=== PATIENT | female | born 1955 | race Caucasian/White ===

== ENCOUNTER 2021-07-16 11:14 | Emergency (ER) | payer MEDICARE, MEDICAID, SELFPAY ==
[2021-07-16] VITALS (14 sets, daily range): BP systolic 166–193; BP diastolic 61–95; PULSE 72–92; RESP 10–20; TEMP 36.4; O2SAT 96–99
[2021-07-16 11:46] LABS: Basophils Absolute Auto 0.1 K/mm3 (0.0-0.1); Basophils Percent Auto 1.2 % (0.2-1.2); Eosinophils Absolute Auto 0.1 K/mm3 (0-0.3); Eosinophils Percent Auto 1.6 % (0-4.4); Hemoglobin 9.1 g/dL (12.0-15.0); Immature Granulocyte Absolute 0.03 K/mm3 (0.00-0.031); Immature Granulocyte Percent A 0.6 % (0-0.5); Lymphocytes Absolute Auto 0.93 K/mm3 (0.9-3.2); Lymphocytes Percent Auto 19.1 % (18.3-44.2); Mean Corpuscular HGB Conc 30.3 g/dl (32-36); Mean Corpuscular Hemoglobin 29.4 pg (26-34); Mean Corpuscular Volume 96.8 fl (80-100); Mean Platelet Volume 10.4 fl (7.4-10.4); Monocytes Absolute Auto 0.4 K/mm3 (0.1-0.6); Monocytes Percent Auto 8.4 % (2.6-8.5); Neutrophils Absolute Auto 3.4 K/mm3 (1.3-6.7); Neutrophils Percent Auto 69.1 % (45.5-73.1); Platelet Count Result 170 k/mm3 (150-375); White Blood Count 4.9 K/mm3 (4.5-10.0)
[2021-07-16 11:58] LABS: Potassium 4.1 mmol/L (3.4-5.0)
[2021-07-16 12:00] LABS: Alanine Aminotransferase 11 U/L (4-35); Albumin Level 3.6 g/dL (3.5-5.1); Alkaline Phosphatase 63 U/L (38-126); Anion Gap 4 mmol/L (8-16); Aspartate Amino Transferase 18 U/L (14-36); Bilirubin,Total 0.8 mg/dL (0.2-1.3); Blood Urea Nitrogen 13 mg/dL (7-17); Calcium 9.1 mg/dL (8.4-10.2); Carbon Dioxide 28 mmol/L (22-30); Chloride 105 mmol/L (98-107); Estimated CRCL calculation 13 ml/min; Estimated Glomerular Filt Rate 9; Glucose 195 mg/dL (65-110); Lipase 35 U/L (23-300); Sodium 137 mmol/L (137-145)
--- NOTE | 2021-07-16 12:46 | PC.NURSE ---
pt on dialysis - states she does not produce much urine at all - in formed Dr Otoole
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
[2021-07-16] MEDS: LACTATED RINGERS 1,000 ML 250 ML IV CONT (15:06)
[2021-07-16] MEDS: FIDAXOMICIN 200 MG TABLET PO (16:48)
[2021-07-16] MEDS: LABETALOL HCL INJ 100 MG/20 ML VIAL 20 MG IV PUSH (18:55)
--- NOTE | 2021-07-16 19:26 | PC.NURSE ---
Pt asked about her hypertension, has had multiple BP's with 190's systolic. Pt reports she did not take her BP medication this morning because she was coming to the hospital. Pt received labetalol, BP now improved. Plan for discharge. Pt aware. Pt's daughter called and states she will come pick her up.
== END 2021-07-16 20:13 | disposition home or self-care (01) ==
PROVIDERS: Emergency Medicine; Emergency Provider Emergency Medicine
DX: K52.9 Noninfective gastroenteritis and colitis, unspecified (principal)
CPT/HCPCS: 36415; 80053; 83690; 85025; 96361; 96374; 99284; A9270; J7120

== ENCOUNTER 2023-04-22 19:33 | Emergency (ER) | payer MEDICARE, MEDICAID, SELFPAY ==
--- NOTE | ~2023-04-22 | XR_ITS ---
Portable chest x-ray Comparison: None Clinical History: Abdominal pain, dialysis Findings: Lungs are clear, without focal consolidation or pleural effusion. Cardiomediastinal silho uette is unremarkable. Bones and soft tissues are unremarkable. Impression: Normal chest. Reviewed, dictated and finalized at location . [employer] Impression: Normal chest.
--- NOTE | ~2023-04-22 | CT_ITS ---
EXAMINATION: CT abdomen pelvis wo con DATE: 04/22/2023 22:10 INDICATION: Abdominal pain TECHNIQUE: Computed tomography (CT) of the abdomen and pelvis was performed without intravenous contr ast. Automated exposure control and iterative reconstruction technique were employed. The dose-length product was 1235.23 mGy-cm. COMPARISON: None FINDINGS: Discoid atelectasis/scarring in the left lower lobe and lingula. Mild cardiomegaly. Atherosclerotic c oronary artery calcific lesion. No pericardial or pleural effusion. Liver, gallbladder, spleen, pancr eas, bilateral adrenal glands and kidneys are normal. 1 cm nonobstructing stone in a lower pole calyx of the left kidney. 12 mm cyst at the upper pole of the right kidney. Normal appendix. No bowel obst ruction. Coarse calcification at the uterine fundus likely related to a small degenerated uterine fib roid. Partially decompressed bladder is unremarkable. No free intraperitoneal gas or fluid. No pathol ogically enlarged abdominal or pelvic lymphadenopathy. There is calcified atherosclerosis of the aort a and many of the other arteries. Mild lumbar levocurvature with moderate to severe spondylosis. IMPRESSION: 1. No acute intra-abdominal/pelvic process. 2. 1 cm left renal stone. Reviewed, dictated and finalized at location A. LER OPERATOR
[2023-04-22 20:01] VITALS: BP 152/64; PULSE 81; RESP 16; TEMP 36.6; O2SAT 99
[2023-04-22 22:00] VITALS: BP 174/69; PULSE 77; RESP 14; O2SAT 100
[2023-04-22 22:08] LABS: Basophils Absolute Auto 0.1 K/mm3 (0.0-0.1); Basophils Percent Auto 1.1 % (0.2-1.2); Eosinophils Absolute Auto 0.7 K/mm3 (0-0.3); Eosinophils Percent Auto 9.6 % (0-4.4); Hematocrit 35.6 % (37.0-47.0); Hemoglobin 11.3 g/dL (12.0-15.0); Immature Granulocyte Absolute 0.03 K/mm3 (0.00-0.031); Immature Granulocyte Percent A 0.4 % (0-0.5); Lymphocytes Absolute Auto 1.26 K/mm3 (0.9-3.2); Lymphocytes Percent Auto 17.6 % (18.3-44.2); Mean Corpuscular HGB Conc 31.7 g/dl (32-36); Mean Corpuscular Hemoglobin 30.6 pg (26-34); Mean Corpuscular Volume 96.5 fl (80-100); Mean Platelet Volume 10.1 fl (7.4-10.4); Monocytes Absolute Auto 0.6 K/mm3 (0.1-0.6); Monocytes Percent Auto 8.2 % (2.6-8.5); Neutrophils Absolute Auto 4.5 K/mm3 (1.3-6.7); Neutrophils Percent Auto 63.1 % (45.5-73.1); Platelet Count Result 229 k/mm3 (150-375); Red Blood Count 3.69 M/mm3 (4.2-5.4); Red Cell Distribution Width 16.6 % (11.5-14.5); White Blood Count 7.2 K/mm3 (4.5-10.0)
[2023-04-22 22:20] LABS: Alanine Aminotransferase 12 U/L (6-35); Albumin Level 3.9 g/dL (3.5-5.1); Alkaline Phosphatase 98 U/L (38-126); Anion Gap 11 mmol/L (8-16); Aspartate Amino Transferase 23 U/L (14-36); Bilirubin,Total 0.6 mg/dL (0.2-1.3); Blood Urea Nitrogen 42 mg/dL (7-17); Calcium 8.9 mg/dL (8.4-10.2); Carbon Dioxide 31 mmol/L (22-30); Chloride 99 mmol/L (98-107); Estimated Glomerular Filt Rate 6; Glucose 215 mg/dL (65-110); Lipase 244 U/L (23-300); Potassium 4.5 mmol/L (3.4-5.0); Sodium 141 mmol/L (137-145)
[2023-04-22] MEDS: ONDANSETRON INJ 4 MG/2 ML VIAL IV PUSH (22:49)
[2023-04-22] MEDS: SODIUM CHLORIDE 0.9% IV 1,000 ML 999 ML IV CONT (22:49)
[2023-04-22 22:50] VITALS: BP 170/89; PULSE 74; RESP 20; O2SAT 100
--- NOTE | 2023-04-22 23:11 | ED.GENADULT ---
HPI - General Adult General Chief complaint: Nausea/Vomiting/Diarrhea Stated complaint: N/D, not feeling well since dialysis Time Seen by Provider: 04/22/23 21:16 History of Present Illness HPI narrative: Patient presents to the emergency department from home by EMS with generalized weakness and a couple episodes of syncope over the past 5 days. Mostly associated with dialysis. She states that after dialysis last Saturday and today they had to wake her up. Patient did not get dialysis last Saturday because her med car was unable to pick her up. However she is concerned they are taking too much off. Plus she has had diarrhea for the past couple days. Left-sided abdominal pain also present. She denies nausea and vomiting. Denies fevers and chills. Related Data Allergies Allergy/AdvReac Type Severity Reaction Status Date / Time captopril [From Capozide] Allergy Rash Verified 04/22/23 22:07 hydrochlorothiazide Allergy Rash Verified 04/22/23 22:07 [From Capozide] Review of Systems Review of Systems: Negative except what is documented in the HPI Exam Narrative: GENERAL: Well-appearing, well-nourished, and in no acute distress. HEAD: Normocephalic, atraumatic. EYES: PERRLA and EOMI. ENT: Nares clear, no rhinorrhea or epistaxis. Mucous membranes moist. NECK: Supple. CHEST: Clear to auscultation. No respiratory distress. HEART: Regular rate and rhythm. ABDOMEN: Soft, mild tender left side of her abdomen, nondistended. EXTREMITIES: Normal range of motion. No edema. SKIN: Warm, dry, no rash. NEURO: No focal deficits. Alert and oriented x3. PSYCH: Normal mood and affect. Course Vital Signs Vital signs: Vital Signs Temperature 36.6 C 04/22/23 20:01 Pulse Rate 81 04/22/23 20:01 Respiratory Rate 16 04/22/23 20:01 Blood Pressure 152/64 H 04/22/23 20:01 Pulse Oximetry 99 04/22/23 20:01 Oxygen Delivery Room Air 04/22/23 20:01 Temperature 36.6 C 04/22/23 20:01 Pulse Rate 74 04/22/23 22:50 Respiratory Rate 20 04/22/23 22:50 Blood Pressure 170/89 H 04/22/23 22:50 Pulse Oximetry 100 04/22/23 22:50 Oxygen Delivery Room Air 04/22/23 20:01 Medical Decision Making MDM Narrative Medical decision making narrative: CT scan negative for acute pathology. Labs ordered and are grossly unremarkable except for chronic elevation of creatinine. Potassium normal. Patient getting Zofran and fluids. Will reassess for possible discharge to home 2340 Patient feeling better. IV fluids infusing. She is requesting a chest x-ray because she cannot have a TB test and she needs a chest x-ray for her dialysis. That is added. Once fluids are in will DC to home Vital Signs Vital Signs: Vital Signs Temperature 36.6 C 04/22/23 20:01 Pulse Rate 81 04/22/23 20:01 Respiratory Rate 16 04/22/23 20:01 Blood Pressure 152/64 H 04/22/23 20:01 Pulse Oximetry 99 04/22/23 20:01 Oxygen Delivery Room Air 04/22/23 20:01 Temperature 36.6 C 04/22/23 20:01 Pulse Rate 74 04/22/23 22:50 Respiratory Rate 20 04/22/23 22:50 Blood Pressure 170/89 H 04/22/23 22:50 Pulse Oximetry 100 04/22/23 22:50 Oxygen Delivery Room Air 04/22/23 20:01 Lab Data 04/22/23 22:01 04/22/23 22:01 Labs: Lab Results 04/22/23 Range/Units 22:01 WBC 7.2 (4.5-10.0) K/mm3 RBC 3.69 L (4.2-5.4) M/mm3 Hgb 11.3 L (12.0-15.0) g/dL Hct 35.6 L (37.0-47.0) % MCV 96.5 (80-100) fl MCH 30.6 (26-34) pg MCHC 31.7 L (32-36) g/dl RDW 16.6 H (11.5-14.5) % Plt Count 229 (150-375) k/mm3 MPV 10.1 (7.4-10.4) fl Immature Gran % (Auto) 0.4 (0-0.5) % Neut % (Auto) 63.1 (45.5-73.1) % Lymph % (Auto) 17.6 L (18.3-44.2) % [place] % (Auto) 8.2 (2.6-8.5) % Eos % (Auto) 9.6 H (0-4.4) % Baso % (Auto) 1.1 (0.2-1.2) % Lymph # (Auto) 1.26 (0.9-3.2) K/mm3 [place] # (Auto) 0.6 (0.1-0.6) K/mm3 Eos # (Auto) 0.7 H (0-0.3) K/mm3 Bas
[2023-04-22 23:54] VITALS: BP 180/77; PULSE 78; RESP 14; O2SAT 100
[2023-04-22] MEDS: LOPERAMIDE HCL 2 MG CAPSULE 4 MG PO (23:56)
[2023-04-23 00:20] VITALS: BP 180/74; PULSE 90; RESP 19; O2SAT 97
== END 2023-04-23 00:23 | disposition home or self-care (01) ==
PROVIDERS: Emergency Provider Emergency Medicine
DX: N18.6 End stage renal disease (principal); E86.0 Dehydration; R19.7 Diarrhea, unspecified; Z99.2 Dependence on renal dialysis
CPT/HCPCS: 36415; 71045; 74176; 80053; 83690; 85025; 96361; 96374; 99284; A9270; J2405; J7030

== ENCOUNTER 2023-08-27 11:13 | Outpatient (CLI) | payer MEDICARE, MEDICAID, SELFPAY ==
--- NOTE | ~2023-08-27 | XR_ITS ---
Left elbow Technique: AP, oblique, and lateral views were obtained. Clinical History: Pain Findings: No acute fracture or dislocation is seen. Osseous alignment is anatomic. Joint spaces are p reserved. There is no displacement of the fat pads, and soft tissues are unremarkable. Impression: Unremarkable radiographs. Reviewed, dictated and finalized at location . Impression: Unremarkable radiographs.
--- NOTE | ~2023-08-27 | XR_ITS ---
Cervical Spine: AP, lateral, open-mouth views Clinical History: Pain Findings: The normal lordotic curve is maintained. The vertebral bodies and posterior elements appea r intact. There is advanced degenerative disc narrowing at C5-C6 and C6-C7. There is mild facet arthr opathy in the cervical spine. Pre-vertebral soft tissues are unremarkable. Impression: Degenerative spondylosis, as above. Reviewed, dictated and finalized at location . Impression: Degenerative spondylosis, as above.
--- NOTE | ~2023-08-27 | XR_ITS ---
Right Shoulder Technique: AP and scapular Y views were obtained. Clinical History: Pain Findings: No fracture or dislocation is seen. Osseous alignment is anatomic. The glenohumeral and acr omioclavicular joint spaces are preserved. Soft tissues are unremarkable. Impression: Unremarkable right shoulder radiographs. Reviewed, dictated and finalized at [facility]. Impression: Unremarkable right shoulder radiographs.
== END 2023-08-27 11:14 | disposition home or self-care (01) ==
PROVIDERS: PCP Internal Medicine Infectious Disease; Visit Provider Internal Medicine Infectious Disease
DX: G62.9 Polyneuropathy, unspecified (principal); M25.511 Pain in right shoulder; M47.892 Other spondylosis, cervical region
CPT/HCPCS: 72040; 73030; 73080

== ENCOUNTER 2023-09-06 16:15 | Inpatient (IN) | payer MEDICARE, MEDICAID, SELFPAY ==
--- NOTE | ~2023-09-06 | XR_ITS ---
EXAMINATION: XR shoulder RT min 2V DATE: 09/06/2023 17:14 INDICATION: Right shoulder pain. Fall. TECHNIQUE: 4 views of right shoulder were obtained. COMPARISON: Right shoulder radiographs 08/27/2023 FINDINGS: Bone alignment is normal. No fracture. There is mild osteoarthritis of glenohumeral joint a nd moderate osteoarthritis of acromioclavicular joint. IMPRESSION: 1. Polyarticular osteoarthritis. Reviewed, dictated and finalized at location A.
--- NOTE | ~2023-09-06 | XR_ITS ---
EXAM: XR knee LT min 4V DATE: 09/06/2023 23:08 HISTORY: glf, pain to knee, trouble standing . COMPARISON: None available. FINDINGS: Decreased mineralization. No fracture or dislocation. No lytic or blastic lesion. Tricompa rtmental left knee osteoarthritis, moderate in the medial compartment. Trace joint effusion. No erosi on or periosteal change. Soft tissues within normal limits. IMPRESSION: No acute osseous finding in the left knee. Reviewed, dictated and finalized at location K.
--- NOTE | ~2023-09-06 | CT_ITS ---
EXAMINATION: CT brain wo con DATE: 09/06/2023 16:48 INDICATION: Neck pain. Fall. TECHNIQUE: Computed tomography (CT) of the head was performed without intravenous contrast. The mA wa s adjusted according to patient size. Iterative reconstruction technique was employed. The dose-lengt h product was 529.67 mGy-cm. COMPARISON: None FINDINGS: There are scattered areas of low attenuation in the cerebral white matter and laurence. There i s no intracranial hemorrhage, acute infarction, or abnormal intracranial mass lesion. The ventricles are normal in size. There are likely changes of ocular lens replacement surgeries. The paranasal sinu ses are clear. The mastoid air cells are normal. IMPRESSION: 1. Mild nonspecific cerebral white matter disease and pontine disease, which likely represents chroni c small vessel ischemic disease. Reviewed, dictated and finalized at location A. IMPRESSION: 1. Mild nonspecific cerebral white matter disease and pontine disease, which ronaldo waters represents chronic small vessel ischemic disease.
--- NOTE | ~2023-09-06 | XR_ITS ---
EXAM: XR humerus LT DATE: 09/06/2023 20:10 HISTORY: pain over fistula, fall today . COMPARISON: None available. FINDINGS: Normal mineralization. No fracture or dislocation. No lytic or blastic lesion. Moderate de generative change at the AC joint. Mild degenerative change at the glenohumeral joint and elbow joint . No erosion or periosteal change. Soft tissue swelling, dilated vessels, and vascular calcifications with adjacent surgical clips in the left upper arm consistent with the given history of fistula. Ove rlying gas may represent subcutaneous gas or artifact. IMPRESSION: No acute osseous finding in the left humerus. Subcutaneous gas versus artifact from gas t rapped within folds of clothing or bandage material overlying the left upper arm fistula. Correlate f or findings of infection or laceration. Reviewed, dictated and finalized at location K. IMPRESSION: No acute osseous finding in the left humerus. Subcutaneous gas vers us artifact from gas trapped within folds of clothing or bandage material overl marcin the left upper arm fistula. Correlate for findings of infection or lacerat ion.
--- NOTE | ~2023-09-06 | CT_ITS ---
EXAMINATION: CT thoracic lumbar wo con DATE: 09/06/2023 16:49 INDICATION: fall, back pain . TECHNIQUE: Computed tomography (CT) of the thoracic and lumbar spine was performed without intravenou s contrast. The dose-length product was 1970.04 mGy-cm. COMPARISON: None FINDINGS: THORACIC SPINE: Vertebral body alignment intact. Vertebral body heights preserved. Multilevel moderate disc space anastacio rowing and marginal osteophytosis. Large lateral osteophyte formation at multiple levels in the mid a nd lower thoracic spine. Vacuum phenomenon at multiple discs in the lower thoracic spine multilevel m ild facet arthropathy. No severe central canal or neural foraminal narrowing. No traumatic malalignme nt or fracture. Visualized lung parenchyma is clear. LUMBAR SPINE: 5 nonrib-bearing lumbar-type vertebral bodies. Pedicles intact. Mild scoliosis. Normal vertebral body alignment. Vertebral body heights preserved. Multilevel moderate and severe degrees of disc space na rrowing. Vacuum phenomenon at L1-2, L3-4, and L4-5. Right L-1-2 central/right subarticular bridging m arginal osteophyte causing severe narrowing of the entrance of the right neural foramen and moderate canal stenosis. Moderate central canal stenosis at L4-5 secondary to degenerative disc and facet masters ge. Severe left L4-5 neural foraminal narrowing secondary to degenerative disc and facet change. Mult ilevel facet arthropathy, severe at L5-S1 IMPRESSION: No acute fracture or traumatic malalignment detected in the thoracic or lumbar spine. Reviewed, dictated and finalized at location K.
--- NOTE | ~2023-09-06 | US_ITS ---
EXAMINATION: US venous doppler [facility] DATE: 09/07/2023 13:36 INDICATION: Left lower limb pain. TECHNIQUE: Grayscale ultrasound images without and with compression and Doppler ultrasound images of the left lower extremity veins were obtained. COMPARISON: None. FINDINGS: The visualized portions of left common femoral vein, profunda (deep) femoral vein, femoral vein, popl iteal vein, peroneal veins, posterior tibial veins, and greater saphenous vein outflow are patent. IMPRESSION: 1. No deep venous thrombosis. Reviewed, dictated and finalized at location A.
--- NOTE | ~2023-09-06 | XR_ITS ---
EXAMINATION: XR ribs RT 2V w CXR 2V DATE: 09/06/2023 17:14 INDICATION: Right rib pain. Fall. TECHNIQUE: Frontal and lateral views of the chest and 2 views on 4 radiographs of the right ribs were obtained. COMPARISON: Chest single view 04/22/2023 FINDINGS: CHEST TWO VIEWS: There is mild scarring in left midlung zone. No pleural effusion or pneumothorax. Th e heart size is normal. RIGHT RIBS: There is no rib fracture. IMPRESSION: 1. No rib fracture. Reviewed, dictated and finalized at location A. IMPRESSION: 1. No rib fracture.
--- NOTE | ~2023-09-06 | CT_ITS ---
EXAMINATION: CT cervical spine wo con DATE: 09/06/2023 16:48 INDICATION: Neck pain. Fall. TECHNIQUE: Computed tomography (CT) of the cervical spine was performed without intravenous contrast. Automated exposure control and iterative reconstruction technique were employed. The dose-length pro duct was 351.07 mGy-cm. COMPARISON: Cervical spine radiographs 08/27/2023 FINDINGS: There is 5 degrees dextrocurvature of cervicothoracic spine. There is kyphosis of cervical spine. There is mild chronic anterior wedging of T1 vertebral body. There is mildly decreased disc he ight at C4-C5 and severely decreased disc height at C5-C6, C6-C7, and C7-T1. The following disc level s are specifically discussed: C2-C3: There is mild bilateral uncovertebral joint osteoarthritis. There is severe bilateral facet jennifer int osteoarthritis. There is mild left neural foraminal stenosis. There is no central canal stenosis. C3-C4: There is mild lateral uncovertebral joint osteoarthritis. There is severe right and moderate l eft facet joint osteoarthritis. There is mild bilateral neural foraminal stenosis. There is mild cent ral canal stenosis. C4-C5: There is mild bilateral uncovertebral joint osteoarthritis. There is mild bilateral facet join t osteoarthritis. There is mild right neural foraminal stenosis. There is mild central canal stenosis . C5-C6: There is severe bilateral uncovertebral joint osteoarthritis. There is moderate right and jacobo re left facet joint osteoarthritis. There is mild bilateral neural foraminal stenosis. There is mild central canal stenosis. C6-C7: There is severe bilateral uncovertebral joint osteoarthritis. There is moderate bilateral face t joint osteoarthritis. There is mild bilateral neural foraminal stenosis. There is mild central wood l stenosis. C7-T1: There is severe bilateral uncovertebral joint osteoarthritis. There is severe bilateral facet joint osteoarthritis. There is mild bilateral neural foraminal stenosis. There is mild central canal stenosis. IMPRESSION: 1. No fracture. 2. Severe cervical spondylosis. Reviewed, dictated and finalized at location A.
--- NOTE | ~2023-09-06 | MR_ITS ---
EXAMINATION: MR brain/brain stem wo/w con DATE: 09/09/2023 10:58 INDICATION: Left lower extremity numbness and weakness. TECHNIQUE: Magnetic resonance imaging (MRI) of the brain and brainstem was performed without and with 20 mL MultiHance intravenous contrast. COMPARISON: Head CT 09/06/2023 FINDINGS: There are scattered areas of nonspecific increased T2-weighted signal intensity in the cere bral white matter and laurence. There is no intracranial hemorrhage, acute infarction, or abnormal intrac ranial mass lesion. The ventricles are normal in size. The paranasal sinuses are clear. The mastoid a ir cells are normal. There are likely changes of ocular lens replacement surgeries. IMPRESSION: 1. Moderate nonspecific cerebral white matter disease and pontine disease, which likely represents ch ronic small vessel ischemic disease. Reviewed, dictated and finalized at location A. IMPRESSION: 1. Moderate nonspecific cerebral white matter disease and pontine disease, whic h likely represents chronic small vessel ischemic disease.
--- NOTE | ~2023-09-06 | US_ITS ---
EXAMINATION: US carotid duplex BI DATE: 09/11/2023 12:42 INDICATION: Syncope. TECHNIQUE: Grayscale, color Doppler, and pulsed Doppler images of the cervical carotid arteries were obtained. The degree of vessel stenosis is placed in one of the following categories: normal, <50%, 5 0-69%, >=70% but less than near-occlusion, near-occlusion, or total occlusion. Note that percent sten osis relative to normal distal artery lumen diameter is indirectly measured from velocity measurement s as described by Ezra, et al. Radiology 2003; 229:[id number]. COMPARISON: None. FINDINGS: RIGHT: The right common carotid artery (CCA) peak systolic velocity (PSV) is 83 cm/s. The right internal car otid artery (ICA) PSV is 85 cm/s. The right ICA end-diastolic velocity (EDV) is 22 cm/s. The right IC A/CCA PSV ratio is 1.0. Grayscale and color Doppler images yield an estimate of <50% diameter reducti on from plaque in the ICA. There is antegrade flow in the right vertebral artery. LEFT: The left CCA PSV is 97 cm/s. The left ICA PSV is 95 cm/s. The left ICA EDV is 15 cm/s. The left ICA/C CA PSV ratio is 1.0. Grayscale and color Doppler images yield an estimate of <50% diameter reduction from plaque in the ICA. There is antegrade flow in the left vertebral artery. IMPRESSION: 1. <50% stenosis in the right internal carotid artery. 2. <50% stenosis in the left internal carotid artery. Reviewed, dictated and finalized at location A.
--- NOTE | ~2023-09-06 | XR_ITS ---
EXAM: XR elbow RT min 3V DATE: 09/06/2023 19:42 HISTORY: fall, elbow pain . COMPARISON: None available. FINDINGS: Normal mineralization. No fracture or dislocation. No lytic or blastic lesion. Mild degene rative change in the elbow joint. No erosion or periosteal change. Soft tissues within normal limits. IMPRESSION: No acute osseous finding in the right elbow. Reviewed, dictated and finalized at location K.
--- NOTE | ~2023-09-06 | XR_ITS ---
EXAMINATION: XR hip LT 2V w AP pelvis DATE: 09/06/2023 17:14 INDICATION: Left hip pain. Fall. TECHNIQUE: An anteroposterior view of the pelvis and 2 views of left hip were obtained. COMPARISON: None. FINDINGS: There is lumbar levocurvature and severe spondylosis. No fracture. There is mild osteoarthr itis of the hips. Osteitis pubis is noted. IMPRESSION: 1. Mild osteoarthritis of the hips. Reviewed, dictated and finalized at location A.
[2023-09-06 16:24] VITALS: BP 104/75; PULSE 77; RESP 18; TEMP 36.1; O2SAT 96
--- NOTE | 2023-09-06 16:25 | ED.FALL ---
HPI - Fall General Chief Complaint: Fall <Cassia Mcghee PA-C - Last Filed: 09/08/23 10:14> Stated Complaint: fall <Cassia Mcghee PA-C - Last Filed: 09/08/23 10:14> Time Seen by Provider: 09/06/23 16:25 <Cassia Mcghee PA-C - Last Filed: 09/08/23 10:14> Focused HPI: this is a 68-year-old female that presents to the emergency department after a ground level fall today. Reports she hit her left arm on the car. Reports this caused her to stumble and fall backwards onto her bottom and her back. Since she has had neck pain, back pain, right shoulder pain, and left hip pain. She is unsure if she hit her head. She did not lose consciousness. She has not been able to ambulate since. She has history of ESRD and is on dialysis. She had just finished her treatment today. Is concerned about the fistula in her left arm. GENERAL: Well-appearing, well-nourished, and in no acute distress. HEAD: Normocephalic, atraumatic. CHEST: Clear to auscultation. ?No respiratory distress. HEART: Regular rate and rhythm.? NEURO: ?Alert and oriented x3. Patient screened in triage and initial orders placed.? ?Additional care and disposition to be based upon?diagnostic testing and treatment. <Cassia Mcghee PA-C - Last Filed: 09/08/23 10:14> Focused HPI: This is a 68-year-old female, with PMH of ESRD, legal blindness, that presents to the emergency department after a ground level fall today. Reports she hit her left arm on the car. Reports this caused her to stumble and fall backwards onto her bottom and her back. Since she has had neck pain, back pain, right shoulder pain, and left hip pain. She is unsure if she hit her head. She did not lose consciousness. She has not been able to ambulate since. She has history of ESRD and is on dialysis MWF. She had just finished her treatment today. Is concerned about the fistula in her left arm. GENERAL: Well-appearing, well-nourished, and in no acute distress. HEAD: Normocephalic, atraumatic. CHEST: Clear to auscultation. ?No respiratory distress. HEART: Regular rate and rhythm.? NEURO: ?Alert and oriented x3. Patient screened in triage and initial orders placed.? ?Additional care and disposition to be based upon?diagnostic testing and treatment. <WILLI Zendejas Last Filed: 09/07/23 00:00> Source: patient <WILLI Zendejas Last Filed: 09/07/23 00:00> Mode of arrival: EMS <WILLI Zendejas Last Filed: 09/07/23 00:00> Limitations: no limitations <WILLI Zendejas Last Filed: 09/07/23 00:00> History of Present Illness HPI Narrative: Agree with above MSE documentation. States she was attempting to walk without her cane today and knows better. Patient is not on any blood thinners. <WILLI Zendejas Last Filed: 09/07/23 00:00> Related Data Home Medications: Home Medications Medication Instructions Recorded Confirmed carvedilol 12.5 mg tablet 12.5 mg PO BID 09/07/23 09/07/23 dulaglutide 1.5 mg/0.5 mL 1.5 mg subcut WEEKLY 09/07/23 09/07/23 subcutaneous pen injector (Trulicity) nifedipine 90 mg tablet,extended 90 mg PO DAILY 09/07/23 09/07/23 release sevelamer carbonate 800 mg tablet 800 mg PO TID 09/07/23 09/07/23 <WILLI Fall Last Filed: 09/08/23 10:14> Allergies/Adverse Reactions: Allergies Allergy/AdvReac Type Severity Reaction Status Date / Time captopril [From Capozide] Allergy Rash Verified 09/06/23 18:46 hydrochlorothiazide Allergy Rash Verified 09/06/23 18:46 [From Capozide] <WILLI Fall Last Filed: 09/08/23 10:14> Review of Systems Review of Systems: CONSTITUTIONAL: Denies fever, chills, or sweats. CARDIOVASCULAR: Denies chest pain. RESPIRATORY: Denies dyspnea. GASTROINTESTINAL: Denies abdominal pain, nausea, vomiting MUSCULOSKELETAL: See HPI. NEUROLOGIC: See HPI <Haley Moreno PA-C - Last Filed: 09/06/
[2023-09-06 18:35] VITALS: BP 138/58; PULSE 87; RESP 14; TEMP 36.6; O2SAT 100
--- NOTE | 2023-09-06 19:15 | PC.NURSE ---
Report given to Mari HILL, all questions answered
[2023-09-06] MEDS: ONDANSETRON HCL ODT 4 MG TABLET PO (19:39)
[2023-09-06] MEDS: traMADol HCL (*CRX) 25 MG TABLET PO (19:39)
--- NOTE | 2023-09-06 21:53 | PC.NURSE ---
attempted IV and blood draw multiple times without success. recep attempting.
[2023-09-06 22:27] LABS: Basophils Absolute Auto 0.1 K/mm3 (0.0-0.1); Eosinophils Absolute Auto 0.7 K/mm3 (0-0.3); Eosinophils Percent Auto 6.5 % (0-4.4); Hematocrit 36.9 % (37.0-47.0); Hemoglobin 11.6 g/dL (12.0-15.0); Immature Granulocyte Absolute 0.04 K/mm3 (0.00-0.031); Immature Granulocyte Percent A 0.4 % (0-0.5); Lymphocytes Absolute Auto 1.69 K/mm3 (0.9-3.2); Lymphocytes Percent Auto 16.5 % (18.3-44.2); Mean Corpuscular HGB Conc 31.4 g/dl (32-36); Mean Corpuscular Hemoglobin 30.8 pg (26-34); Mean Corpuscular Volume 97.9 fl (80-100); Mean Platelet Volume 9.9 fl (7.4-10.4); Monocytes Absolute Auto 0.8 K/mm3 (0.1-0.6); Monocytes Percent Auto 7.3 % (2.6-8.5); Neutrophils Percent Auto 68.3 % (45.5-73.1); Platelet Count Result 316 k/mm3 (150-375); Red Blood Count 3.77 M/mm3 (4.2-5.4); Red Cell Distribution Width 14.8 % (11.5-14.5); White Blood Count 10.2 K/mm3 (4.5-10.0)
[2023-09-06 22:36] LABS: INR 1.2
[2023-09-06 22:42] LABS: Alanine Aminotransferase 12 U/L (6-35); Albumin Level 4.2 g/dL (3.5-5.1); Alkaline Phosphatase 83 U/L (38-126); Anion Gap 8 mmol/L (4-12); Aspartate Amino Transferase 24 U/L (14-36); Bilirubin,Total 0.6 mg/dL (0.2-1.3); Blood Urea Nitrogen 17 mg/dL (7-17); Calcium 9.8 mg/dL (8.4-10.2); Carbon Dioxide 33 mmol/L (22-30); Chloride 97 mmol/L (98-107); Estimated CRCL calculation 11 ml/min; Estimated Glomerular Filt Rate 8; Glucose 249 mg/dL (65-110); Potassium 4.8 mmol/L (3.4-5.0); Sodium 138 mmol/L (137-145)
[2023-09-06 22:44] LABS: D Dimer 0.77 ug/mL (<0.48)
[2023-09-06 23:16] VITALS: BP 147/67; PULSE 82; RESP 15; TEMP 36.6; O2SAT 97
--- NOTE | 2023-09-06 23:19 | PC.NURSE ---
Assumed care of pt at this time. Pt moved to room 3
--- NOTE | 2023-09-06 23:20 | PC.NURSE ---
attempted to ambulate pt w/ cane. pt was able to take a small step and then had to sit back down. pt states she cannot ambulate due to the pain in her left knee.
--- NOTE | 2023-09-07 00:54 | ADMGEN ---
This patient, Zuleyka Tinoco, was admitted to Medical Room 347-. Patient/family oriented to hospital policies and general routines including ID bracelet, bed and alarms, visiting hours, pain management, procedures, bathroom and other care routines, personal items, smoking policy, room service/diet, and visiting hours. Information on how to activate the Rapid Response Team has been discussed. Patient/Family are encouraged to report perceived risks to care and to ask questions if they do not understand what they are told or what they should do.
[2023-09-07 01:21] VITALS: BMI 35.9
[2023-09-07 01:24] VITALS: BP 137/64; PULSE 83; RESP 20; TEMP 36.7; O2SAT 100
[2023-09-07 06:00] VITALS: BP 149/58; PULSE 83; RESP 20; TEMP 37; O2SAT 98
[2023-09-07 09:16] VITALS: PULSE 78
[2023-09-07] MEDS: carvediloL 12.5 MG TABLET PO ×2 (09:16→20:22)
[2023-09-07] MEDS: SEVELAMER CARBONATE 800 MG TABLET PO ×3 (09:16→17:17)
[2023-09-07] MEDS: ENOXAPARIN 30 MG/0.3 ML SYRINGE SUB-Q (09:17)
[2023-09-07] MEDS: NIFEdipine 30 MG TAB.ER.24 90 MG PO (09:17)
[2023-09-07 09:20] VITALS: O2SAT 98
--- NOTE | 2023-09-07 11:03 | PCPTNOTE ---
per RN doppler was ordered to rule out DVT, PT evaluation waiting on doppler results, will follow
--- NOTE | 2023-09-07 14:11 | PM.IMHP ---
H&P: HPI History of Present Illness Date/Time: 09/07/23 14:11 Chief Complaint: Fall Narrative: This is a 68-year-old female with a significant past medical history of on Saturday dialysis at [facility] in [place], left upper extremity AV fistula, hypertension, GERD, hyperlipidemia-diet controlled, type 2 diabetic, depression, cataracts, legally blind who presents to the hospital for evaluation after a ground level fall. Patient states that she had some numbness to her left leg when sitting on the toilet. She felt like her leg was very unsteady but did not have a fall at that time. She states that she was getting out of her car and stumbled falling backwards onto her bottom in her back, she had her left arm on the car, she did not lose consciousness and she does not remember hitting her head. She has not been able to ambulate since that time. She is on dialysis and had her treatment yesterday at [facility]. She had had concerns about the fistula in her left arm however on examination today she has good bruit and thrill. She denies any fever, chills, nausea, vomiting, diarrhea, abdominal pain, chest pain, shortness a breath. She only endorses pain in the left leg and weakness. Workup in the hospital includes a head CT which shows age-related changes. Cervical spine CT showed no fracture, severe cervical spondylosis. Thoracic/lumbar spine CT was negative for any acute fracture or malalignment. Ribs with chest x-ray showed no rib fracture. Right shoulder x-ray showing polyarticular osteoarthritis. Hip and pelvis x-ray showing mild osteoarthritis of the hips. Right elbow x-ray showing no acute osseous findings in the right elbow. Left humerus showing no fracture, subcutaneous gas versus artifact from gas trapping with unfolds of clothing or bandage material overlying the left upper arm fistula. Left knee x-ray was negative for any acute finding. Left lower extremity venous Doppler was negative for DVT. Initial labs show a white blood cell count of 10.2, hemoglobin 11.6, INR 1.2, chloride 97, creatinine 5.10, EGFR 8, blood sugar 249, liver enzymes were normal. Patient was given tramadol, Tylenol, and Zofran in the ED. PT and OT were ordered to eval and treat. Review of Systems Review of Systems: All systems reviewed & are unremarkable except as noted in HPI and below Constitutional: Constitutional: Reports as per HPI and Reports no additional constitutional complaints Eyes: Eyes: Reports as per HPI and Reports no additional eye complaints ENT: Reports system reviewed and no additional complaints, except as documented and Reports as per HPI Cardiovascular: Cardiovascular: Reports as per HPI and Reports no additional cardiovascular complaints Respiratory: Respiratory: Reports as per HPI and Reports no additional respiratory complaints Gastrointestinal: Gastrointestinal: Reports as per HPI and Reports no additional gastrointestinal complaints Genitourinary: Genitourinary: Reports no additional female genitourinary complaints and Reports as per HPI Musculoskeletal: Musculoskeletal: Reports no additional musculoskeletal complaints and Reports as per HPI Integumentary/Breasts: Skin/Breast: Reports system reviewed and no additional complaints, except as docu and Reports as per HPI Neurologic: Reports system reviewed and no additional complaints, except as documented and Reports as per HPI Psychiatric: Psychiatric: Reports no additional psychiatric complaints and Reports as per HPI PMFSH Past Medical History Medical History AV fistula Cataracts, bilateral Depression End-stage renal disease on hemodialysis High cholesterol Hypertension Legal blindness Type 2 diabetes mellitus Surgical History Surgical History H/O cataract removal with insertion of prosthetic lens Family History Family History (Reviewed
--- NOTE | 2023-09-07 15:09 | PCOTNOTE ---
Spoke with RN prior to eval, still awiting the results of the doppler before completion of OT evaluation. Will follow.
[2023-09-07 15:46] VITALS: BP 106/55; PULSE 74; RESP 18; TEMP 36.8; O2SAT 98
[2023-09-07 20:01] VITALS: BP 107/44; PULSE 80; RESP 16; TEMP 36.8; O2SAT 100
[2023-09-07] MEDS: INSULIN ASPART (*BKC) 100 UNITS/ML SUB-Q (20:31)
[2023-09-07 21:10] LABS: Glucose Point of Care 228 mg/dl (65-105)
[2023-09-08 05:20] VITALS: BP 117/49; PULSE 74; RESP 16; TEMP 37; O2SAT 98
[2023-09-08 06:17] LABS: Hematocrit 38.7 % (37.0-47.0); Mean Corpuscular Hemoglobin 31.1 pg (26-34); Mean Corpuscular Volume 100.3 fl (80-100); Mean Platelet Volume 9.7 fl (7.4-10.4); Platelet Count Result 327 k/mm3 (150-375); Red Blood Count 3.86 M/mm3 (4.2-5.4); Red Cell Distribution Width 15.3 % (11.5-14.5); White Blood Count 11.1 K/mm3 (4.5-10.0)
[2023-09-08 07:28] LABS: Alanine Aminotransferase 10 U/L (6-35); Albumin Level 4.1 g/dL (3.5-5.1); Alkaline Phosphatase 88 U/L (38-126); Anion Gap 9 mmol/L (4-12); Aspartate Amino Transferase 17 U/L (14-36); Bilirubin,Total 0.6 mg/dL (0.2-1.3); Blood Urea Nitrogen 38 mg/dL (7-17); Calcium 9.8 mg/dL (8.4-10.2); Carbon Dioxide 30 mmol/L (22-30); Chloride 97 mmol/L (98-107); Estimated CRCL calculation 7 ml/min; Estimated Glomerular Filt Rate 5; Glucose 107 mg/dL (65-110); Potassium 5.5 mmol/L (3.4-5.0); Sodium 136 mmol/L (137-145)
[2023-09-08 07:39] LABS: Hemoglobin A1C 6.5 % (<5.7)
--- NOTE | 2023-09-08 08:29 | ECG_ITS ---
Measurements Intervals [place] Rate: 70 P: 11 UT: 178 QRS: -33 QRSD: 117 T: 48 QT: 413 QTc: 447 Interpretive Statements SINUS RHYTHM LEFT AXIS DEVIATION INTRAVENTRICULAR CONDUCTION DELAY DELAYED PRECORDIAL R/S TRANSITION BORDERLINE ST ABNORMALITY- HIGH LATERAL LEADS BORDERLINE ECG NO PREVIOUS ECG AVAILABLE FOR COMPARISON Electronically Signed On 09-08-2023 10:59:21 CDT by Walter Varela D.O.
[2023-09-08 08:40] LABS: Glucose Point of Care 94 mg/dl (65-105)
[2023-09-08 08:59] VITALS: PULSE 70
[2023-09-08] MEDS: SEVELAMER CARBONATE 800 MG TABLET PO ×3 (08:59→17:12)
[2023-09-08] MEDS: carvediloL 12.5 MG TABLET PO ×2 (08:59→21:11)
[2023-09-08] MEDS: NIFEdipine 30 MG TAB.ER.24 90 MG PO (08:59)
[2023-09-08] MEDS: ENOXAPARIN 30 MG/0.3 ML SYRINGE SUB-Q (09:00)
--- NOTE | 2023-09-08 09:09 | PM.CNNEP ---
Assessment and Plan Assessment and plan (1) ESRD (end stage renal disease) on dialysis: Code(s): N18.6 - End stage renal disease; Z99.2 - Dependence on renal dialysis Status: Chronic Assessment and Plan: the patient has end-stage renal disease. She dialyzes 3 times a week on Wednesdays and Fridays at [facility] under the care of Dr. Melendez. her dialysis duration is 3hour she says. she has a left upper arm AV fistula. Will do another dialysis tomorrow. She has a mildly high potassium so will give some Lokelma and will repeat the potassium in the morning. Will remove about 2-3 L as tolerated by her blood pressure. She usually gains about 3L but since she is in the hospital she may not gain as much. But I will give a little flexibility to the nurses according to the blood pressure. I will not use heparin tomorrow because of the fall. (2) Fall from ground level: Code(s): W18.30XA - Fall on same level, unspecified, initial encounter Status: Acute Assessment and Plan: The patient had a fall. She has had multiple x-rays which do not show fracture. (3) Hypertension: Code(s): I10 - Essential (primary) hypertension Status: Chronic Assessment and Plan: The patient has hypertension. Her blood pressure is under good control. She is on carvedilol and nifedipine for this. (4) Type 2 diabetes mellitus: Code(s): E11.9 - Type 2 diabetes mellitus without complications Status: Chronic Assessment and Plan: The patient does on Accu-Cheks and insulin sliding scale. Management per hospitalists. (5) Erythropoietin deficiency anemia: Code(s): D63.1 - Anemia in chronic kidney disease Status: Acute Assessment and Plan: Hemoglobin is 12. Will hold off on Epogen for now. (6) Renal osteodystrophy: Code(s): N25.0 - Renal osteodystrophy Status: Acute Assessment and Plan: Will check a phosphorus level in the morning History of Present Illness Reason for Consult Consult date: 09/08/23 Chief Complaint Chief complaint: glf, lle pain, unable to ambulate, esrd on hemo History of Present Illness Narrative: Lory is a very pleasant 68-year-old lady who has multiple medical problems including end-stage renal disease on dialysis Wednesdays at [facility] under the care of Dr. Melendez, hypertension, hyperlipidemia, diabetes, depression, legal blindness, left AV fistula, cataracts, anemia, and renal osteodystrophy. The patient has been on dialysis for about 5 years. She has done pretty well on the machine. She does not make much urine. She gains about 3kilos between treatments. Her blood pressure is pretty stable on the machine. The patient was getting out of her car and lost her footing and fell against the car and also fell to the ground on her buttocks and back. She did not hit her head she says. She did not lose consciousness. She did not faint. She had no prodrome of nausea lightheadedness or palpitations. Review of Systems Constitutional: Constitutional: Reports no additional constitutional complaints Eyes: Eyes: Reports no additional eye complaints ENT: Reports system reviewed and no additional complaints, except as documented Cardiovascular: Cardiovascular: Reports no additional cardiovascular complaints Respiratory: Respiratory: Reports no additional respiratory complaints Gastrointestinal: Gastrointestinal: Reports no additional gastrointestinal complaints Genitourinary: Genitourinary: Reports no additional female genitourinary complaints Musculoskeletal: Musculoskeletal: Reports no additional musculoskeletal complaints Integumentary/Breasts: Skin/Breast: Reports system reviewed and no additional complaints, except as docu Neurologic: Reports system reviewed and no additional complaints, except as documented Psychiatric: Psychiatric: Reports no add
--- NOTE | 2023-09-08 11:28 | PM.IMPN ---
Progress Note: A&P Assessment and Plan (1) Fall from ground level: Code(s): W18.30XA - Fall on same level, unspecified, initial encounter Status: Acute Assessment and Plan: 09/07/2023: Patient had a ground level fall yesterday when getting out of the car from dialysis, she was noted to fall backwards landing on her buttocks however she hit her arm left arm on the car door, she did not lose consciousness, however she was unable to determine if she hit her head or not. Prior to the fall she noticed some numbness to her left leg when sitting on the toilet, grandson massaged her leg and she was able to get up and ambulate however she felt weakness at that point. She did not fall that instance. Head CT was negative Cervical spine CT, thoracic lumbar spine CT essentially negative for any acute finding X-ray of the ribs with chest, shoulder, hip and pelvis, elbow, humerus, knee are all negative for fracture or any acute findings PT and OT are ordered Bilateral ultrasound venous Doppler ordered Continue neuro checks Q shift 09/07: Return of strength and function left lower extremity as of today. Will investigate possible stroke with MRI echocardiogram lipid panel and initiate aspirin rosuvastatin. (2) ESRD (end stage renal disease) on dialysis: Code(s): N18.6 - End stage renal disease; Z99.2 - Dependence on renal dialysis Status: Chronic Assessment and Plan: 09/07/2023: End-stage renal disease on dialysis on Saturday at [facility] in [place] AV fistula to left upper extremity with positive bruit and thrill Nephrology consulted 09/07: Saturday dialysis, Dr. Perera saw patient today. Potassium noted to be 5.5 with morning labs. Mlolykelma ordered after discussion with Dr. Perera. Patient will receive dialysis tomorrow. (3) Hypertension: Code(s): I10 - Essential (primary) hypertension Status: Chronic Assessment and Plan: 09/07/2023: Blood pressures ranging 137/64 to 149/58 Continue Coreg and Procardia XL (4) High cholesterol: Code(s): E78.00 - Pure hypercholesterolemia, unspecified Status: Chronic Assessment and Plan: 09/07/2023: Diet controlled Patient lost 75 lb over last couple years which was intentional 3/31: Lipid panel added on to prior labs awaiting results (5) Type 2 diabetes mellitus: Code(s): E11.9 - Type 2 diabetes mellitus without complications Status: Chronic Assessment and Plan: 09/07/2023: Blood sugars ranging 215-249 Will check hemoglobin A1c in the morning Patient is normally on Trulicity 1.5 mg weekly, which was placed on hold Low-dose sliding scale insulin ordered Hypoglycemia protocol in place Accu-Cheks AC and HS Renal dialysis diet ordered 09/07: Morning glucose 94 (6) Left leg weakness: Code(s): R29.898 - Other symptoms and signs involving the musculoskeletal system Status: Acute Assessment and Plan: 09/07: Loss of function and numbness left lower extremity which resulted in fall bringing patient to the hospital. Return function and feeling today. Will proceed with stroke workup. Initiate aspirin and rosuvastatin. (7) Unable to ambulate: Code(s): R26.2 - Difficulty in walking, not elsewhere classified Status: Acute Assessment and Plan: 09/07: PT/OT, patient cannot care for herself at home any longer and is looking for facility placement. (8) Hyperkalemia: Code(s): E87.5 - Hyperkalemia Status: Acute Assessment and Plan: 09/07: Patient is end-stage renal disease on dialysis Saturday, labs this morning show elevation of potassium to 5.5. EKG without concerning findings. No available telemetry monitoring at this time. No chest pain shortness a breath or other symptoms at this time. Discussed with Nephrology and initiated Lokelma 5 mg. Time Spent With Patient Time with patient: Greater than 35 pippa
[2023-09-08 11:34] VITALS: BP 121/43; PULSE 71; RESP 18; TEMP 36.1; O2SAT 100
[2023-09-08 11:47] LABS: Glucose Point of Care 141 mg/dl (65-105)
[2023-09-08] MEDS: ASPIRIN 81 MG CHEWABLE TABLET PO (12:28)
[2023-09-08] MEDS: ROSUVASTATIN 20 MG TABLET PO (12:28)
[2023-09-08 12:54] LABS: Cholesterol 106 mg/dL (0-200); HDL Direct 40 mg/dL; Triglycerides 98 mg/dL (<150)
[2023-09-08 13:05] LABS: LDL Cholesterol Direct 58 mg/dL
[2023-09-08] MEDS: SODIUM ZIRCONIUM CYCLOSILICATE 5 GM POWD.PACK PO (14:38)
[2023-09-08 17:00] LABS: Glucose Point of Care 161 mg/dl (65-105)
[2023-09-08 18:41] VITALS: BP 113/45; PULSE 75; RESP 18; TEMP 36.2; O2SAT 100
[2023-09-08 19:43] VITALS: BP 125/45; PULSE 75; RESP 18; TEMP 36.3; O2SAT 100
[2023-09-08 21:11] VITALS: PULSE 75
[2023-09-08 22:14] LABS: Glucose Point of Care 199 mg/dl (65-105)
[2023-09-09] VITALS (22 sets, daily range): BP systolic 87–157; BP diastolic 38–73; PULSE 65–80; RESP 16–18; TEMP 36.1–37.2; O2SAT 97–100
[2023-09-09 06:16] LABS: Basophils Absolute Auto 0.1 K/mm3 (0.0-0.1); Basophils Percent Auto 0.8 % (0.2-1.2); Eosinophils Absolute Auto 1.1 K/mm3 (0-0.3); Eosinophils Percent Auto 11.3 % (0-4.4); Hematocrit 34.6 % (37.0-47.0); Hemoglobin 10.9 g/dL (12.0-15.0); Immature Granulocyte Absolute 0.05 K/mm3 (0.00-0.031); Immature Granulocyte Percent A 0.5 % (0-0.5); Lymphocytes Absolute Auto 1.93 K/mm3 (0.9-3.2); Mean Corpuscular HGB Conc 31.5 g/dl (32-36); Mean Corpuscular Hemoglobin 30.9 pg (26-34); Mean Platelet Volume 9.8 fl (7.4-10.4); Monocytes Absolute Auto 0.8 K/mm3 (0.1-0.6); Monocytes Percent Auto 8.4 % (2.6-8.5); Neutrophils Absolute Auto 5.7 K/mm3 (1.3-6.7); Platelet Count Result 286 k/mm3 (150-375); Red Blood Count 3.53 M/mm3 (4.2-5.4); Red Cell Distribution Width 14.9 % (11.5-14.5); White Blood Count 9.7 K/mm3 (4.5-10.0)
[2023-09-09 06:35] LABS: Alanine Aminotransferase 8 U/L (6-35); Albumin Level 3.6 g/dL (3.5-5.1); Alkaline Phosphatase 74 U/L (38-126); Anion Gap 9 mmol/L (4-12); Aspartate Amino Transferase 17 U/L (14-36); Bilirubin,Total 0.6 mg/dL (0.2-1.3); Blood Urea Nitrogen 52 mg/dL (7-17); Calcium 8.9 mg/dL (8.4-10.2); Carbon Dioxide 27 mmol/L (22-30); Chloride 97 mmol/L (98-107); Estimated CRCL calculation 6 ml/min; Estimated Glomerular Filt Rate 4; Glucose 105 mg/dL (65-110); Magnesium 2.2 mg/dL (1.6-2.3); Phosphorus 6.4 mg/dL (2.5-4.5); Potassium 5.6 mmol/L (3.4-5.0); Sodium 133 mmol/L (137-145)
[2023-09-09 07:20] LABS: Hepatitis B Surface Antigen Negative (Negative)
[2023-09-09 07:45] LABS: Hepatitis B Surface Anti Res Positive
[2023-09-09 08:32] LABS: Glucose Point of Care 106 mg/dl (65-105)
[2023-09-09] MEDS: SEVELAMER CARBONATE 800 MG TABLET PO ×3 (09:14→18:18)
[2023-09-09] MEDS: ASPIRIN 81 MG CHEWABLE TABLET PO (09:14)
[2023-09-09] MEDS: ENOXAPARIN 30 MG/0.3 ML SYRINGE SUB-Q (09:14)
--- NOTE | 2023-09-09 10:50 | PM.PNNEP ---
Progress Note: A&P Assessment and Plan (1) End stage renal disease: Code(s): N18.6 - End stage renal disease Status: Chronic Assessment and Plan: HD today continue outpatient schedule of Sat/Sat/Saturday follow electrolytes, volume status, and clearance follows with Dr. Melendez at [facility] (2) Fall from ground level: Code(s): W18.30XA - Fall on same level, unspecified, initial encounter Status: Acute Assessment and Plan: as noted by history on admission imaging to date noted -- no acute injuries noted MRI today to evaluate for possible CVA/TIA PT/OT as tolerated (3) Hypertension: Code(s): I10 - Essential (primary) hypertension Status: Chronic Assessment and Plan: reasonable control continue home medications follow trend of hemodynamics (4) Anemia: Code(s): D64.9 - Anemia, unspecified Status: Acute Assessment and Plan: H/H at goal for ESRD Epogen when Hgb < 10 follow trend of H/H (5) Type 2 diabetes mellitus: Code(s): E11.9 - Type 2 diabetes mellitus without complications Status: Chronic Assessment and Plan: follow accu-cheks glycemic control per hospitalists Will continue to follow. Subjective Date/time seen: 09/09/23 10:50 Interval history: Follow-up for end stage renal disease on hemodialysis. Chart reviewed -- assuming care from Dr. Perera; tolerating dialysis treatment at the time of my visit (seen on HD at 10:40AM); appears to be doing reasonably well; no apparent distress voiced; no issues/events overnight or earlier this morning. Exam Narrative: General: elderly but WD/WN female in NAD Heart: normal S1 and S2; no rub Lungs: clear to auscultation Abdomen: soft, nontender, nondistended, positive bowel sounds Extremities: no cyanosis or clubbing; no edema Skin: warm and dry Objective Data Vital Signs Vital Signs: Vital Signs Temp Pulse Resp BP Pulse Ox O2 Del Method 09/09/23 08:00 100 Room Air 09/09/23 05:32 97 F L 77 18 139/55 L 100 09/08/23 20:00 Room Air 09/08/23 21:11 75 09/08/23 19:43 97.3 F L 75 18 125/45 L 100 09/08/23 18:41 97.1 F L 75 18 113/45 L 100 09/08/23 15:00 Room Air Intake/Output Intake/Output: Intake & Output 09/06/23 09/07/23 09/08/23 09/09/23 23:59 23:59 23:59 23:59 Intake Total 1220 1060 390 Output Total 150 0 Balance 1070 1060 390 Meds/Results Medications: Active Medications Generic Name Dose Route Start Last Admin Trade Name Freq PRN Reason Stop Dose Admin Acetaminophen 650 mg 09/07/23 08:49 Acetaminophen 325 Mg Tablet PO Q4H PRN Mild Pain (1-3) or Fever Aspirin 81 mg 09/08/23 11:45 09/09/23 09:14 Aspirin 81 Mg Chewable Tablet PO 81 mg DAILY@0800 ARON Administration Carvedilol 12.5 mg 09/07/23 09:00 09/08/23 21:11 Carvedilol 12.5 Mg Tablet PO 12.5 mg Q12HR ARON Administration Dextrose 12.5 gm 09/07/23 17:50 Dextrose 50% 25 Gm/50 Ml Syringe IV PUSH PRN PRN Hypoglycemia Protocol Enoxaparin Sodium 30 mg 09/07/23 09:00 09/09/23 09:14 Enoxaparin 30 Mg/0.3 Ml Syringe SUB-Q 30 mg DAILY ARON Administration Glucagon 1 mg 09/07/23 17:50 Glucagon For Inj 1 Mg Vial IM PRN PRN Hypoglycemia Protocol Glucose 15 gm 09/07/23 17:50 Glucose Oral Gel 15 Gm Of Glucse In 37.5 Gm Tube PO PRN PRN Hypoglycemia Protocol Dextrose 1,000 mls @ 100 mls/hr 09/07/23 17:50 Dextrose 5% 1,000 Ml IVPB PRN PRN Hypoglycemia Protocol Albumin Human 50 mls @ 999 mls/hr 09/08/23 09:18 Albutein IVPB 10/08/23 09:17 Q10M PRN HYPOTENSION Insulin Aspart 1 - 2 units 09/07/23 21:00 09/08/23 21:11 Insulin Aspart (*Bkc) 100 Units/Ml SUB-Q Not Given HS ARON Protocol Insulin Aspart 2 - 5 units 09/08/23 08:00 09/09/23 08:38
--- NOTE | 2023-09-09 10:51 | PM.IMPN ---
Progress Note: A&P Assessment and Plan (1) Fall from ground level: Code(s): W18.30XA - Fall on same level, unspecified, initial encounter Status: Acute Assessment and Plan: 09/07/2023: Patient had a ground level fall yesterday when getting out of the car from dialysis, she was noted to fall backwards landing on her buttocks however she hit her arm left arm on the car door, she did not lose consciousness, however she was unable to determine if she hit her head or not. Prior to the fall she noticed some numbness to her left leg when sitting on the toilet, grandson massaged her leg and she was able to get up and ambulate however she felt weakness at that point. She did not fall that instance. Head CT was negative Cervical spine CT, thoracic lumbar spine CT essentially negative for any acute finding X-ray of the ribs with chest, shoulder, hip and pelvis, elbow, humerus, knee are all negative for fracture or any acute findings PT and OT are ordered Bilateral ultrasound venous Doppler ordered Continue neuro checks Q shift 09/07: Return of strength and function left lower extremity as of today. Will investigate possible stroke with MRI echocardiogram lipid panel and initiate aspirin rosuvastatin. 09/08: Patient preferring to stay in the bed than a bedside chair due to discomfort of the buttock with sitting upright. Encouraged patient to change positions frequently and work with therapy. (2) ESRD (end stage renal disease) on dialysis: Code(s): N18.6 - End stage renal disease; Z99.2 - Dependence on renal dialysis Status: Chronic Assessment and Plan: 09/07/2023: End-stage renal disease on dialysis on Saturday at [facility] AV fistula to left upper extremity with positive bruit and thrill Nephrology consulted 09/07: Saturday dialysis, Dr. Perera saw patient today. Potassium noted to be 5.5 with morning labs. Lokelma ordered after discussion with Dr. Perera. Patient will receive dialysis tomorrow. 09/08: Will undergo hospital based dialysis today. (3) Hypertension: Code(s): I10 - Essential (primary) hypertension Status: Chronic Assessment and Plan: 09/07/2023: Blood pressures ranging 137/64 to 149/58 Continue Coreg and Procardia XL (4) High cholesterol: Code(s): E78.00 - Pure hypercholesterolemia, unspecified Status: Chronic Assessment and Plan: 09/07/2023: Diet controlled Patient lost 75 lb over last couple years which was intentional 09/07: Lipid panel added on to prior labs awaiting results 09/08: Lipid panel well controlled, no stroke on MRI, discontinue rosuvastatin that was started yesterday. (5) Type 2 diabetes mellitus: Code(s): E11.9 - Type 2 diabetes mellitus without complications Status: Chronic Assessment and Plan: 09/07/2023: Blood sugars ranging 215-249 Will check hemoglobin A1c in the morning Patient is normally on Trulicity 1.5 mg weekly, which was placed on hold Low-dose sliding scale insulin ordered Hypoglycemia protocol in place Accu-Cheks AC and HS Renal dialysis diet ordered 09/07: Morning glucose 94 09/08: Morning glucose 106 (6) Left leg weakness: Code(s): R29.898 - Other symptoms and signs involving the musculoskeletal system Status: Acute Assessment and Plan: 09/07: Loss of function and numbness left lower extremity which resulted in fall bringing patient to the hospital. Return function and feeling today. Will proceed with stroke workup. Initiate aspirin and rosuvastatin. 09/08: full function has returned. Patient reports some numbness from only left great toe to the knee on the medial aspect of the leg and she mentioned she was previously treated for neuropathy. (7) Unable to ambulate: Code(s): R26.2 - Difficulty in walking, not elsewhere classified Status: Acute Assessment and Plan: 09/07: PT/OT, patient cannot care for hers
[2023-09-09] MEDS: NIFEdipine 30 MG TAB.ER.24 90 MG PO (14:18)
[2023-09-09] MEDS: carvediloL 12.5 MG TABLET PO ×2 (14:18→21:40)
[2023-09-09 14:28] LABS: Glucose Point of Care 113 mg/dl (65-105)
[2023-09-09] MEDS: SODIUM ZIRCONIUM CYCLOSILICATE 5 GM POWD.PACK PO (16:29)
[2023-09-09 17:20] LABS: Glucose Point of Care 253 mg/dl (65-105)
[2023-09-09] MEDS: INSULIN ASPART (*BKC) 100 UNITS/ML SUB-Q (17:27)
[2023-09-10 00:03] LABS: Glucose Point of Care 180 mg/dl (65-105)
[2023-09-10 04:43] VITALS: BP 120/48; PULSE 73; RESP 16; TEMP 36.3; O2SAT 99
[2023-09-10] MEDS: ACETAMINOPHEN 325 MG TABLET 650 MG PO (04:45)
[2023-09-10 06:03] LABS: Basophils Absolute Auto 0.1 K/mm3 (0.0-0.1); Basophils Percent Auto 0.7 % (0.2-1.2); Eosinophils Percent Auto 10.7 % (0-4.4); Hematocrit 33.1 % (37.0-47.0); Hemoglobin 10.6 g/dL (12.0-15.0); Immature Granulocyte Absolute 0.06 K/mm3 (0.00-0.031); Immature Granulocyte Percent A 0.7 % (0-0.5); Lymphocytes Absolute Auto 1.08 K/mm3 (0.9-3.2); Lymphocytes Percent Auto 12.1 % (18.3-44.2); Mean Corpuscular Hemoglobin 31.3 pg (26-34); Mean Corpuscular Volume 97.6 fl (80-100); Mean Platelet Volume 9.8 fl (7.4-10.4); Monocytes Absolute Auto 0.6 K/mm3 (0.1-0.6); Monocytes Percent Auto 6.7 % (2.6-8.5); Neutrophils Absolute Auto 6.1 K/mm3 (1.3-6.7); Neutrophils Percent Auto 69.1 % (45.5-73.1); Platelet Count Result 267 k/mm3 (150-375); Red Blood Count 3.39 M/mm3 (4.2-5.4); Red Cell Distribution Width 15.3 % (11.5-14.5); White Blood Count 8.9 K/mm3 (4.5-10.0)
[2023-09-10 06:18] LABS: Alanine Aminotransferase 8 U/L (6-35); Albumin Level 3.5 g/dL (3.5-5.1); Alkaline Phosphatase 70 U/L (38-126); Anion Gap 10 mmol/L (4-12); Aspartate Amino Transferase 15 U/L (14-36); Bilirubin,Total 0.6 mg/dL (0.2-1.3); Blood Urea Nitrogen 34 mg/dL (7-17); Calcium 8.9 mg/dL (8.4-10.2); Carbon Dioxide 28 mmol/L (22-30); Chloride 97 mmol/L (98-107); Estimated CRCL calculation 9 ml/min; Estimated Glomerular Filt Rate 6; Glucose 92 mg/dL (65-110); Phosphorus 6.1 mg/dL (2.5-4.5); Potassium 4.7 mmol/L (3.4-5.0); Sodium 135 mmol/L (137-145)
[2023-09-10 08:33] LABS: Glucose Point of Care 87 mg/dl (65-105)
[2023-09-10] MEDS: SEVELAMER CARBONATE 800 MG TABLET PO ×3 (08:56→16:55)
[2023-09-10] MEDS: ASPIRIN 81 MG CHEWABLE TABLET PO (08:56)
[2023-09-10 08:57] VITALS: PULSE 68
[2023-09-10] MEDS: carvediloL 12.5 MG TABLET PO (08:57)
[2023-09-10] MEDS: NIFEdipine 30 MG TAB.ER.24 90 MG PO (08:57)
[2023-09-10] MEDS: ENOXAPARIN 30 MG/0.3 ML SYRINGE SUB-Q (08:58)
[2023-09-10 10:10] VITALS: BP 73/42; BP 99/44
--- NOTE | 2023-09-10 10:18 | P.PNNP_ITS ---
Progress Note: A&P Assessment and Plan (1) End stage renal disease: Code(s): N18.6 - End stage renal disease Status: Chronic Assessment and Plan: * HD tomorrow * continue outpatient dialysis schedule of Sat/Sat/Saturday * follow electrolytes, volume status, and clearance * follows with Dr. Melendez at [facility] (2) Fall from ground level: Code(s): W18.30XA - Fall on same level, unspecified, initial encounter Status: Acute Assessment and Plan: * as noted by history on admission * imaging to date noted -- no acute injuries noted * MRI of brain noted - no evidence of CVA/TIA * PT/OT as tolerated (3) Hypertension: Code(s): I10 - Essential (primary) hypertension Status: Chronic Assessment and Plan: * reasonable control * continue home medications - may need to place parameters * follow trend of hemodynamics (4) Anemia: Code(s): D64.9 - Anemia, unspecified Status: Acute Assessment and Plan: * H/H at goal for ESRD * Epogen with HD * follow trend of H/H (5) Type 2 diabetes mellitus: Code(s): E11.9 - Type 2 diabetes mellitus without complications Status: Chronic Assessment and Plan: * follow accu-cheks * glycemic control per hospitalists Will continue to follow. Subjective Date/time seen: 09/10/23 10:18 Interval history: Follow-up for end stage renal disease on hemodialysis. Tolerated dialysis treatment yesterday without any issues or problems; no apparent distress noted at the time of my visit; still feels a bit weak in general; BP running on the lower side this AM. Exam Narrative: General: elderly but WD/WN female in NAD Heart: normal S1 and S2; no rub Lungs: clear to auscultation Abdomen: soft, nontender, nondistended, positive bowel sounds Extremities: no cyanosis or clubbing; no edema Skin: warm and intact Objective Data Vital Signs Vital Signs: Vital Signs Temp Pulse Resp BP Pulse Ox O2 Del Method 09/10/23 10:10 99/44 L 09/10/23 08:57 68 09/10/23 04:43 97.3 F L 73 16 120/48 L 99 09/09/23 20:00 Room Air 09/09/23 21:40 80 04/01/24 20:13 98.1 F 76 18 124/48 L 97 09/09/23 18:36 98.4 F 80 16 111/50 L 100 09/09/23 13:45 97.9 F 75 16 134/51 L 100 09/09/23 13:22 77 114/45 L 09/09/23 13:15 75 119/49 L 09/09/23 13:00 71 117/48 L 09/09/23 12:45 71 117/51 L 09/09/23 12:30 71 111/48 L 09/09/23 14:18 79 Intake/Output Intake/Output: Intake & Output 09/07/23 09/08/23 09/09/23 09/10/23 23:59 23:59 23:59 23:59 Intake Total 1220 1060 1370 240 Output Total 150 0 2500 Balance 1070 1060 -1130 240 Meds/Results Medications: Active Medications Generic Name Dose Route Start Last Admin Trade Name Freq PRN Reason Stop Dose Admin Acetaminophen 650 mg 09/07/23 08:49 09/10/23 04:45 Acetaminophen 325 Mg Tablet PO 650 mg Q4H PRN Administration Mild Pain (1-3) or Fever Aspirin 81 mg 09/08/23 11:45 09/10/23 08:56 Aspirin 81 Mg Chewable Tablet PO
--- NOTE | 2023-09-10 10:18 | PM.PNNEP ---
Progress Note: A&P Assessment and Plan (1) End stage renal disease: Code(s): N18.6 - End stage renal disease Status: Chronic Assessment and Plan: HD tomorrow continue outpatient dialysis schedule of Sat/Sat/Saturday follow electrolytes, volume status, and clearance follows with Dr. Melendez at [facility] (2) Fall from ground level: Code(s): W18.30XA - Fall on same level, unspecified, initial encounter Status: Acute Assessment and Plan: as noted by history on admission imaging to date noted -- no acute injuries noted MRI of brain noted - no evidence of CVA/TIA PT/OT as tolerated (3) Hypertension: Code(s): I10 - Essential (primary) hypertension Status: Chronic Assessment and Plan: reasonable control continue home medications - may need to place parameters follow trend of hemodynamics (4) Anemia: Code(s): D64.9 - Anemia, unspecified Status: Acute Assessment and Plan: H/H at goal for ESRD Epogen with HD follow trend of H/H (5) Type 2 diabetes mellitus: Code(s): E11.9 - Type 2 diabetes mellitus without complications Status: Chronic Assessment and Plan: follow accu-cheks glycemic control per hospitalists Will continue to follow. Subjective Date/time seen: 09/10/23 10:18 Interval history: Follow-up for end stage renal disease on hemodialysis. Tolerated dialysis treatment yesterday without any issues or problems; no apparent distress noted at the time of my visit; still feels a bit weak in general; BP running on the lower side this AM. Exam Narrative: General: elderly but WD/WN female in NAD Heart: normal S1 and S2; no rub Lungs: clear to auscultation Abdomen: soft, nontender, nondistended, positive bowel sounds Extremities: no cyanosis or clubbing; no edema Skin: warm and intact Objective Data Vital Signs Vital Signs: Vital Signs Temp Pulse Resp BP Pulse Ox O2 Del Method 09/10/23 10:10 99/44 L 09/10/23 08:57 68 09/10/23 04:43 97.3 F L 73 16 120/48 L 99 09/09/23 20:00 Room Air 09/09/23 21:40 80 09/09/23 20:13 98.1 F 76 18 124/48 L 97 09/09/23 18:36 98.4 F 80 16 111/50 L 100 09/09/23 13:45 97.9 F 75 16 134/51 L 100 09/09/23 13:22 77 114/45 L 09/09/23 13:15 75 119/49 L 09/09/23 13:00 71 117/48 L 09/09/23 12:45 71 117/51 L 09/09/23 12:30 71 111/48 L 09/09/23 14:18 79 Intake/Output Intake/Output: Intake & Output 09/07/23 09/08/23 09/09/23 09/10/23 23:59 23:59 23:59 23:59 Intake Total 1220 1060 1370 240 Output Total 150 0 2500 Balance 1070 1060 -1130 240 Meds/Results Medications: Active Medications Generic Name Dose Route Start Last Admin Trade Name Freq PRN Reason Stop Dose Admin Acetaminophen 650 mg 09/07/23 08:49 09/10/23 04:45 Acetaminophen 325 Mg Tablet PO 650 mg Q4H PRN Administration Mild Pain (1-3) or Fever Aspirin 81 mg 09/08/23 11:45 09/10/23 08:56 Aspirin 81 Mg Chewable Tablet PO 81 mg DAILY@0800 ARON Administration Carvedilol 12.5 mg 09/07/23 09:00 09/10/23 08:57 Carvedilol 12.5 Mg Tablet PO 12.5 mg Q12HR ARON Administration Dextrose 12.5 gm 09/07/23 17:50 Dextrose 50% 25 Gm/50 Ml Syringe IV PUSH PRN PRN Hypoglycemia Protocol Enoxaparin Sodium 30 mg 09/07/23 09:00 09/10/23 08:58 Enoxaparin 30 Mg/0.3 Ml Syringe SUB-Q 30 mg DAILY ARON Administration Glucagon 1 mg 09/07/23 17:50 Glucagon For Inj 1 Mg Vial IM PRN PRN Hypoglycemia Protocol Glucose 15 gm 09/07/23 17:50 Glucose Oral Gel 15 Gm Of Glucse In 37.5 Gm Tube PO PRN PRN Hypoglycemia Protocol Dextrose 1,000 mls @ 100 mls/hr 09/07/23 17:50 Dextrose 5% 1,000 Ml IVPB PRN PRN Hypoglycemia Protocol Albumin Human 50 mls @ 999 mls/hr 09/08/23 09:18
--- NOTE | 2023-09-10 11:25 | PM.IMPN ---
Progress Note: A&P Assessment and Plan (1) Orthostatic hypotension: Code(s): I95.1 - Orthostatic hypotension Status: Acute Assessment and Plan: 09/09: While walking with therapy patient got lightheaded dizzy. When back to her sees her blood pressure was in the 70s. Later blood pressure was fine when lying down and again dropped to 71/51 upon standing when checking orthostatics. Ordered normal saline 1 L infusion at 75 mL/hr as recommended by Nephrology. Unable to discharge patient with these changes in vital signs. Will hold Coreg and Procardia XL (2) Fall from ground level: Code(s): W18.30XA - Fall on same level, unspecified, initial encounter Status: Acute Assessment and Plan: 09/07/2023: Patient had a ground level fall yesterday when getting out of the car from dialysis, she was noted to fall backwards landing on her buttocks however she hit her arm left arm on the car door, she did not lose consciousness, however she was unable to determine if she hit her head or not. Prior to the fall she noticed some numbness to her left leg when sitting on the toilet, grandson massaged her leg and she was able to get up and ambulate however she felt weakness at that point. She did not fall that instance. Head CT was negative Cervical spine CT, thoracic lumbar spine CT essentially negative for any acute finding X-ray of the ribs with chest, shoulder, hip and pelvis, elbow, humerus, knee are all negative for fracture or any acute findings PT and OT are ordered Bilateral ultrasound venous Doppler ordered Continue neuro checks Q shift 09/07: Return of strength and function left lower extremity as of today. Will investigate possible stroke with MRI echocardiogram lipid panel and initiate aspirin rosuvastatin. 09/08: Patient preferring to stay in the bed than a bedside chair due to discomfort of the buttock with sitting upright. Encouraged patient to change positions frequently and work with therapy. (3) ESRD (end stage renal disease) on dialysis: Code(s): N18.6 - End stage renal disease; Z99.2 - Dependence on renal dialysis Status: Chronic Assessment and Plan: 09/07/2023: End-stage renal disease on dialysis on Saturday at [facility] in [place] AV fistula to left upper extremity with positive bruit and thrill Nephrology consulted 09/07: Saturday dialysis, Dr. Perera saw patient today. Potassium noted to be 5.5 with morning labs. Lokelma ordered after discussion with Dr. Perera. Patient will receive dialysis tomorrow. 09/08: Will undergo hospital based dialysis today. (4) Hypertension: Code(s): I10 - Essential (primary) hypertension Status: Chronic Assessment and Plan: 09/07/2023: Blood pressures ranging 137/64 to 149/58 Continue Coreg and Procardia XL 09/09: Orthostatic hypotension today. Coreg and Procardia XL on hold and IV fluids ordered 75 mL/hr for 1 L (5) High cholesterol: Code(s): E78.00 - Pure hypercholesterolemia, unspecified Status: Chronic Assessment and Plan: 09/07/2023: Diet controlled Patient lost 75 lb over last couple years which was intentional 09/07: Lipid panel added on to prior labs awaiting results 09/08: Lipid panel well controlled, no stroke on MRI, discontinue rosuvastatin that was started yesterday. (6) Type 2 diabetes mellitus: Code(s): E11.9 - Type 2 diabetes mellitus without complications Status: Chronic Assessment and Plan: 09/07/2023: Blood sugars ranging 215-249 Will check hemoglobin A1c in the morning Patient is normally on Trulicity 1.5 mg weekly, which was placed on hold Low-dose sliding scale insulin ordered Hypoglycemia protocol in place Accu-Cheks AC and HS Renal dialysis diet ordered 09/07: Morning glucose 94 09/08: Morning glucose 106 (7) Left leg weakness: Code(s): R29.898 - Other symptoms and signs involving the musculoskeletal syste
[2023-09-10 12:06] LABS: Glucose Point of Care 219 mg/dl (65-105)
[2023-09-10] MEDS: INSULIN ASPART (*BKC) 100 UNITS/ML SUB-Q (12:41)
[2023-09-10] MEDS: SODIUM ZIRCONIUM CYCLOSILICATE 5 GM POWD.PACK PO (15:41)
[2023-09-10] MEDS: ONDANSETRON INJ 4 MG/2 ML VIAL IV PUSH (15:41)
[2023-09-10 15:51] VITALS: BP 113/55; PULSE 87; RESP 16; TEMP 36.9; O2SAT 96
[2023-09-10 15:52] VITALS: BP 71/51
[2023-09-10] MEDS: SODIUM CHLORIDE 0.9% IV 1,000 ML 75 ML IV CONT (16:54)
[2023-09-10 17:02] LABS: Glucose Point of Care 106 mg/dl (65-105)
[2023-09-10 21:13] LABS: Glucose Point of Care 128 mg/dl (65-105)
[2023-09-10 23:48] VITALS: BP 132/62; PULSE 93; RESP 14; TEMP 37.2; O2SAT 98
[2023-09-11] VITALS (19 sets, daily range): BP systolic 119–152; BP diastolic 40–66; PULSE 72–92; RESP 16–22; TEMP 36.7–37.1; O2SAT 90–99
--- NOTE | 2023-09-11 | ECHO_ITS ---
Patient Info Name: Zuleyka Tinoco Age: 68 years : 1955 Gender: Female Ht: 65 in Wt: 220 lbs BSA: 2.18 m2 HR: 82 bpm BP: 128 / 45 mmHg Heart Rhythm: Sinus Rhythm Technical Quality: Fair Exam Date: 09/11/2023 9:41 AM Exam Location: Echo Lab Patient Status: Outpatient Admit Date: 09/06/2023 Staff Ordering Physician: Maggy Hanna APRN Hair Rooting Machine Operator: Cele Garza RDCS Attending Provider: Pushpa Nevarez DO Referring Physician: Jacques GRIER; Exam Type: CA echo doppler color flow Study Info Indications R55 - Syncope and collapse Complete two-dimensional, color flow and Doppler transthoracic echocardiogram is performed. Summary 1. Complete two-dimensional, color flow and Doppler transthoracic echocardiogram is performed. 2. Left ventricular chamber dimension is normal. 3. Left ventricular systolic function is hyperdynamic, estimated at >70%. 4. There is moderately increased left ventricular wall thickness. 5. The left ventricular diastolic function is grade II diastolic dysfunction. 6. There is mild aortic valve stenosis with a peak velocity of 183 cm/s, mean gradient of 8 mmHg, and aortic valve area of 1.7 cm2. 7. There is trace mitral valve regurgitation. 8. There is trace tricuspid valve regurgitation. 9. No pulmonary hypertension, estimated pulmonary arterial systolic pressure is 26 mmHg. Left Ventricle Left ventricular chamber dimension is normal. Left ventricular systolic function is hyperdynamic, estimated at >70%. There is moderately increased left ventricular wall thickness. The left ventricular diastolic function is grade II diastolic dysfunction. Right Ventricle Right ventricular chamber dimension is normal. Right ventricular systolic function is normal. Left Atria Left atrial chamber dimension is mildly enlarged. Right Atria Right atrial chamber dimension is normal. Aortic Valve The aortic valve is not well visualized. There is mild aortic valve stenosis with a peak velocity of 183 cm/s, mean gradient of 8 mmHg, and aortic valve area of 1.7 cm2. There is no aortic valve regurgitation. Pulmonic Valve The pulmonic valve is not well visualized. There is trace pulmonic regurgitation. Mitral Valve The mitral valve has thickened leaflets. There is trace mitral valve regurgitation. The mitral valve annulus is moderately calcified. Tricuspid Valve The tricuspid valve leaflets are normal. There is trace tricuspid valve regurgitation. No pulmonary hypertension, estimated pulmonary arterial systolic pressure is 26 mmHg. Pericardium/Pleural The pericardium appears normal. There is small pericardial effusion. Inferior Vena Cava Normal inferior vena cava with >50% collapse upon inspiration consistent with normal right atrial pressure, 5 mmHg. Aorta The aortic root size at the sinus of Valsalva is normal. The prox ascending aorta size is normal. Left Ventricular Outflow Tract Name Value Normal LVOT 2D LVOT Diameter 2.0 cm LVOT Doppler LVOT Peak Gradient 4 mmHg LVOT Mean Gradient 2 mmHg LVOT VTI 22 cm LVOT VTI/AV VTI Ratio 0.6 LVOT S
[2023-09-11 05:37] LABS: Basophils Absolute Auto 0.1 K/mm3 (0.0-0.1); Basophils Percent Auto 0.9 % (0.2-1.2); Eosinophils Absolute Auto 0.7 K/mm3 (0-0.3); Eosinophils Percent Auto 9.7 % (0-4.4); Hematocrit 33.2 % (37.0-47.0); Hemoglobin 10.4 g/dL (12.0-15.0); Immature Granulocyte Absolute 0.14 K/mm3 (0.00-0.031); Immature Granulocyte Percent A 1.9 % (0-0.5); Lymphocytes Absolute Auto 0.73 K/mm3 (0.9-3.2); Lymphocytes Percent Auto 9.7 % (18.3-44.2); Mean Corpuscular HGB Conc 31.3 g/dl (32-36); Mean Corpuscular Volume 99.1 fl (80-100); Mean Platelet Volume 9.8 fl (7.4-10.4); Monocytes Absolute Auto 0.4 K/mm3 (0.1-0.6); Monocytes Percent Auto 5.4 % (2.6-8.5); Neutrophils Absolute Auto 5.5 K/mm3 (1.3-6.7); Neutrophils Percent Auto 72.4 % (45.5-73.1); Platelet Count Result 222 k/mm3 (150-375); Red Blood Count 3.35 M/mm3 (4.2-5.4); Red Cell Distribution Width 15.5 % (11.5-14.5); White Blood Count 7.6 K/mm3 (4.5-10.0)
[2023-09-11 05:48] LABS: Alanine Aminotransferase 8 U/L (6-35); Albumin Level 3.4 g/dL (3.5-5.1); Alkaline Phosphatase 67 U/L (38-126); Anion Gap 7 mmol/L (4-12); Aspartate Amino Transferase 17 U/L (14-36); Bilirubin,Total 0.5 mg/dL (0.2-1.3); Blood Urea Nitrogen 41 mg/dL (7-17); Calcium 8.6 mg/dL (8.4-10.2); Carbon Dioxide 28 mmol/L (22-30); Chloride 98 mmol/L (98-107); Estimated CRCL calculation 7 ml/min; Estimated Glomerular Filt Rate 4; Glucose 94 mg/dL (65-110); Magnesium 1.8 mg/dL (1.6-2.3); Phosphorus 6.3 mg/dL (2.5-4.5); Potassium 4.6 mmol/L (3.4-5.0); Sodium 133 mmol/L (137-145)
[2023-09-11 08:23] LABS: Glucose Point of Care 98 mg/dl (65-105)
[2023-09-11] MEDS: SEVELAMER CARBONATE 800 MG TABLET PO ×3 (08:48→18:13)
[2023-09-11] MEDS: ENOXAPARIN 30 MG/0.3 ML SYRINGE SUB-Q (08:49)
[2023-09-11] MEDS: ASPIRIN 81 MG CHEWABLE TABLET PO (08:49)
--- NOTE | 2023-09-11 09:20 | PM.IMPN ---
Progress Note: A&P Assessment and Plan (1) Orthostatic hypotension: Code(s): I95.1 - Orthostatic hypotension Status: Acute Assessment and Plan: 09/09: While walking with therapy patient got lightheaded dizzy. When back to her sees her blood pressure was in the 70s. Later blood pressure was fine when lying down and again dropped to 71/51 upon standing when checking orthostatics. Ordered normal saline 1 L infusion at 75 mL/hr as recommended by Nephrology. Unable to discharge patient with these changes in vital signs. Will hold Coreg and Procardia XL 09/10: Resume medications in the morning (2) Fall from ground level: Code(s): W18.30XA - Fall on same level, unspecified, initial encounter Status: Acute Assessment and Plan: 09/07/2023: Patient had a ground level fall yesterday when getting out of the car from dialysis, she was noted to fall backwards landing on her buttocks however she hit her arm left arm on the car door, she did not lose consciousness, however she was unable to determine if she hit her head or not. Prior to the fall she noticed some numbness to her left leg when sitting on the toilet, grandson massaged her leg and she was able to get up and ambulate however she felt weakness at that point. She did not fall that instance. Head CT was negative Cervical spine CT, thoracic lumbar spine CT essentially negative for any acute finding X-ray of the ribs with chest, shoulder, hip and pelvis, elbow, humerus, knee are all negative for fracture or any acute findings PT and OT are ordered Bilateral ultrasound venous Doppler ordered Continue neuro checks Q shift 09/07: Return of strength and function left lower extremity as of today. Will investigate possible stroke with MRI echocardiogram lipid panel and initiate aspirin rosuvastatin. 09/08: Patient preferring to stay in the bed than a bedside chair due to discomfort of the buttock with sitting upright. Encouraged patient to change positions frequently and work with therapy. 09/10: ECHO and carotid dopplers negative. (3) ESRD (end stage renal disease) on dialysis: Code(s): N18.6 - End stage renal disease; Z99.2 - Dependence on renal dialysis Status: Chronic Assessment and Plan: 09/07/2023: End-stage renal disease on dialysis on Saturday at [facility] in [place] AV fistula to left upper extremity with positive bruit and thrill Nephrology consulted 09/07: Saturday dialysis, Dr. Perera saw patient today. Potassium noted to be 5.5 with morning labs. Lokelma ordered after discussion with Dr. Perera. Patient will receive dialysis tomorrow. 09/08: Will undergo hospital based dialysis today. 09/10: HD today. (4) Hypertension: Code(s): I10 - Essential (primary) hypertension Status: Chronic Assessment and Plan: 09/07/2023: Blood pressures ranging 137/64 to 149/58 Continue Coreg and Procardia XL 09/09: Orthostatic hypotension today. Coreg and Procardia XL on hold and IV fluids ordered 75 mL/hr for 1 L 09/10: Fluids stopped. HD today. Resume meds tomorrow morning (5) High cholesterol: Code(s): E78.00 - Pure hypercholesterolemia, unspecified Status: Chronic Assessment and Plan: 09/07/2023: Diet controlled Patient lost 75 lb over last couple years which was intentional 09/07: Lipid panel added on to prior labs awaiting results 09/08: Lipid panel well controlled, no stroke on MRI, discontinue rosuvastatin that was started yesterday. (6) Type 2 diabetes mellitus: Code(s): E11.9 - Type 2 diabetes mellitus without complications Status: Chronic Assessment and Plan: 09/07/2023: Blood sugars ranging 215-249 Will check hemoglobin A1c in the morning Patient is normally on Trulicity 1.5 mg weekly, which was placed on hold Low-dose sliding scale insulin ordered Hypoglycemia protocol in place Accu-Cheks AC and HS Renal dialysis diet ordered
[2023-09-11 12:18] LABS: Glucose Point of Care 163 mg/dl (65-105)
--- NOTE | 2023-09-11 13:55 | PC.NURSE ---
Patient to dialysis per bed.
--- NOTE | 2023-09-11 14:50 | PM.PNNEP ---
Progress Note: A&P Assessment and Plan (1) End stage renal disease: Code(s): N18.6 - End stage renal disease Status: Chronic Assessment and Plan: HD today continue outpatient dialysis schedule of Sat/Sat/Saturday follow electrolytes, volume status, and clearance follows with Dr. Melendez at [facility] (2) Fall from ground level: Code(s): W18.30XA - Fall on same level, unspecified, initial encounter Status: Acute Assessment and Plan: as noted by history on admission imaging to date noted -- no acute injuries noted MRI of brain noted - no evidence of CVA/TIA PT/OT as tolerated (3) Hypertension: Code(s): I10 - Essential (primary) hypertension Status: Chronic Assessment and Plan: issues with hypotension as well as orthostatic hypotension noted yesterday BP medications on hold follow trend of hemodynamics (4) Anemia: Code(s): D64.9 - Anemia, unspecified Status: Acute Assessment and Plan: H/H at goal for ESRD Epogen with HD follow trend of H/H (5) Type 2 diabetes mellitus: Code(s): E11.9 - Type 2 diabetes mellitus without complications Status: Chronic Assessment and Plan: follow accu-cheks glycemic control per hospitalists Will continue to follow. Subjective Date/time seen: 09/11/23 14:50 Interval history: Follow-up for end stage renal disease on hemodialysis. Issues with hypotension and associated orthostatic hypotension yesterday so given 1L normal saline over 13 hours; tolerating hemodialysis treatment at the time of my visit (seen on HD at 2:40PM) -- given presence of dizziness still and previous BP issues, no fluid removal with dialysis today; no other acute complaints voiced other than mild weakness. Exam Narrative: General: elderly but WD/WN female in NAD Heart: normal S1 and S2; no rub Lungs: clear to auscultation Abdomen: soft, nontender, nondistended, positive bowel sounds Extremities: no cyanosis or clubbing; no edema Skin: no rash Objective Data Vital Signs Vital Signs: Vital Signs Temp Pulse Resp BP Pulse Ox O2 Del Method 09/11/23 14:45 73 124/59 L 09/11/23 14:30 73 123/59 L 09/11/23 16:00 76 144/65 H 09/11/23 15:45 76 142/65 H 09/11/23 14:13 72 119/54 L 09/11/23 14:03 98.1 F 74 16 121/57 L 99 09/11/23 08:15 Room Air 09/11/23 06:00 98.7 F 82 16 128/45 L 96 09/10/23 23:48 99 F 93 14 132/62 98 09/10/23 20:00 Room Air Intake/Output Intake/Output: Intake & Output 09/08/23 09/09/23 09/10/23 09/11/23 23:59 23:59 23:59 23:59 Intake Total 1060 1370 960 962 Output Total 0 2500 0 2000 Balance 1060 1130 960 1038 Meds/Results Medications: Active Medications Generic Name Dose Route Start Last Admin Trade Name Freq PRN Reason Stop Dose Admin Acetaminophen 650 mg 09/07/23 08:49 09/10/23 04:45 Acetaminophen 325 Mg Tablet PO 650 mg Q4H PRN Administration Mild Pain (1-3) or Fever Aspirin 81 mg 09/08/23 11:45 09/11/23 08:49 Aspirin 81 Mg Chewable Tablet PO 81 mg DAILY@0800 ARON Administration Carvedilol 12.5 mg 09/07/23 09:00 09/10/23 08:57 Carvedilol 12.5 Mg Tablet PO 12.5 mg Q12HR ARON Administration Dextrose 12.5 gm 09/07/23 17:50 Dextrose 50% 25 Gm/50 Ml Syringe IV PUSH PRN PRN Hypoglycemia Protocol Enoxaparin Sodium 30 mg 09/07/23 09:00 09/11/23 08:49 Enoxaparin 30 Mg/0.3 Ml Syringe SUB-Q 30 mg DAILY ARON Administration Epoetin Vaibhav-epbx 10,000 units 09/11/23 20:00 09/11/23 16:45 Epoetin Vaibhav-Epbx 10,000 Units/Ml Vial IV PUSH 09/11/23 20:01 10,000 units ONCE ONE Administration Glucagon 1 mg 09/07/23 17:50 Glucagon For Inj 1 Mg Vial IM PRN PRN Hypoglycemia Protocol Glucose 15 gm 09/07/23 17:50 Glucose Oral Gel 15 Gm Of Glucse In 37.5 Gm Tube PO PRN PRN
--- NOTE | 2023-09-11 14:50 | P.PNNP_ITS ---
Progress Note: A&P Assessment and Plan (1) End stage renal disease: Code(s): N18.6 - End stage renal disease Status: Chronic Assessment and Plan: * HD today * continue outpatient dialysis schedule of Sat/Sat/Saturday * follow electrolytes, volume status, and clearance * follows with Dr. Melendez at [facility] (2) Fall from ground level: Code(s): W18.30XA - Fall on same level, unspecified, initial encounter Status: Acute Assessment and Plan: * as noted by history on admission * imaging to date noted -- no acute injuries noted * MRI of brain noted - no evidence of CVA/TIA * PT/OT as tolerated (3) Hypertension: Code(s): I10 - Essential (primary) hypertension Status: Chronic Assessment and Plan: * issues with hypotension as well as orthostatic hypotension noted yesterday * BP medications on hold * follow trend of hemodynamics (4) Anemia: Code(s): D64.9 - Anemia, unspecified Status: Acute Assessment and Plan: * H/H at goal for ESRD * Epogen with HD * follow trend of H/H (5) Type 2 diabetes mellitus: Code(s): E11.9 - Type 2 diabetes mellitus without complications Status: Chronic Assessment and Plan: * follow accu-cheks * glycemic control per hospitalists Will continue to follow. Subjective Date/time seen: 09/11/23 14:50 Interval history: Follow-up for end stage renal disease on hemodialysis. Issues with hypotension and associated orthostatic hypotension yesterday so given 1L normal saline over 13 hours; tolerating hemodialysis treatment at the time of my visit (seen on HD at 2:40PM) -- given presence of dizziness still and previous BP issues, no fluid removal with dialysis today; no other acute complaints voiced other than mild weakness. Exam Narrative: General: elderly but WD/WN female in NAD Heart: normal S1 and S2; no rub Lungs: clear to auscultation Abdomen: soft, nontender, nondistended, positive bowel sounds Extremities: no cyanosis or clubbing; no edema Skin: no rash Objective Data Vital Signs Vital Signs: Vital Signs Temp Pulse Resp BP Pulse Ox O2 Del Method 09/11/23 14:45 73 124/59 L 09/11/23 14:30 73 123/59 L 09/11/23 16:00 76 144/65 H 09/11/23 15:45 76 142/65 H 09/11/23 14:13 72 119/54 L 09/11/23 14:03 98.1 F 74 16 121/57 L 99 09/11/23 08:15 Room Air 09/11/23 06:00 98.7 F 82 16 128/45 L 96 09/10/23 23:48 99 F 93 14 132/62 98 09/10/23 20:00 Room Air Intake/Output Intake/Output: Intake & Output 09/08/23 09/09/23 09/10/23 09/11/23 23:59 23:59 23:59 23:59 Intake Total 1060 1370 960 962 Output Total 0 2500 0 2000 Balance 1060 -1130 960 -1038 Meds/Results Medications: Active Medications Generic Name Dose Route Start Last Admin Trade Name Ancelmoq PRN Reason Stop Dose Admin Acetaminophen 650 mg 09/07/23 08:49 09/10/23 04:45 Acetaminophen 325 Mg Tablet PO 650 mg Q4H PRN Administration Mild Pain (1-3) or Fever Aspirin 81 mg 09/08/23 11:45 09/11/23 08:49 Aspirin 81 Mg Chewable Tablet PO
[2023-09-11] MEDS: EPOETIN ALFA-EPBX 10,000 UNITS/ML VIAL 10000 UNITS IV PUSH (16:45)
[2023-09-11 18:22] LABS: Glucose Point of Care 84 mg/dl (65-105)
[2023-09-11 19:53] LABS: Glucose Point of Care 144 mg/dl (65-105)
[2023-09-11] MEDS: SODIUM ZIRCONIUM CYCLOSILICATE 10 GM POWD.PACK (21:47)
[2023-09-12 06:00] VITALS: BP 152/65; PULSE 76; RESP 20; TEMP 36.6; O2SAT 96
[2023-09-12 06:41] LABS: Basophils Absolute Auto 0.1 K/mm3 (0.0-0.1); Basophils Percent Auto 0.9 % (0.2-1.2); Eosinophils Absolute Auto 0.8 K/mm3 (0-0.3); Eosinophils Percent Auto 11.4 % (0-4.4); Hemoglobin 10.1 g/dL (12.0-15.0); Immature Granulocyte Absolute 0.13 K/mm3 (0.00-0.031); Immature Granulocyte Percent A 1.9 % (0-0.5); Lymphocytes Absolute Auto 1.26 K/mm3 (0.9-3.2); Lymphocytes Percent Auto 17.9 % (18.3-44.2); Mean Corpuscular HGB Conc 31.6 g/dl (32-36); Mean Corpuscular Hemoglobin 31.2 pg (26-34); Mean Corpuscular Volume 98.8 fl (80-100); Mean Platelet Volume 10.2 fl (7.4-10.4); Monocytes Absolute Auto 0.9 K/mm3 (0.1-0.6); Monocytes Percent Auto 12.1 % (2.6-8.5); Neutrophils Absolute Auto 3.9 K/mm3 (1.3-6.7); Neutrophils Percent Auto 55.8 % (45.5-73.1); Platelet Count Result 221 k/mm3 (150-375); Red Blood Count 3.24 M/mm3 (4.2-5.4); Red Cell Distribution Width 15.7 % (11.5-14.5)
[2023-09-12 06:53] LABS: Alanine Aminotransferase 7 U/L (6-35); Albumin Level 3.2 g/dL (3.5-5.1); Alkaline Phosphatase 63 U/L (38-126); Anion Gap 5 mmol/L (4-12); Aspartate Amino Transferase 21 U/L (14-36); Bilirubin,Total 0.5 mg/dL (0.2-1.3); Blood Urea Nitrogen 22 mg/dL (7-17); Calcium 8.5 mg/dL (8.4-10.2); Carbon Dioxide 30 mmol/L (22-30); Chloride 99 mmol/L (98-107); Estimated CRCL calculation 11 ml/min; Estimated Glomerular Filt Rate 8; Glucose 85 mg/dL (65-110); Magnesium 1.9 mg/dL (1.6-2.3); Phosphorus 4.3 mg/dL (2.5-4.5); Potassium 4.4 mmol/L (3.4-5.0); Sodium 134 mmol/L (137-145)
[2023-09-12] MEDS: ASPIRIN 81 MG CHEWABLE TABLET PO (08:11)
[2023-09-12] MEDS: SEVELAMER CARBONATE 800 MG TABLET PO ×2 (08:11→12:38)
[2023-09-12] MEDS: ENOXAPARIN 30 MG/0.3 ML SYRINGE SUB-Q (08:11)
[2023-09-12] MEDS: NIFEdipine 30 MG TAB.ER.24 90 MG PO (08:11)
[2023-09-12 08:12] VITALS: PULSE 76
[2023-09-12] MEDS: carvediloL 12.5 MG TABLET PO (08:12)
[2023-09-12 08:38] LABS: Glucose Point of Care 105 mg/dl (65-105)
--- NOTE | 2023-09-12 09:33 | PM.DS ---
DS: Admitting Diagnosis Discharge Date 09/11 Admitting Diagnosis Fall DS: Discharge Diagnosis Discharge Diagnosis (1) Orthostatic hypotension: Code(s): I95.1 - Orthostatic hypotension Status: Acute Assessment and Plan: 09/09: While walking with therapy patient got lightheaded dizzy. When back to her sees her blood pressure was in the 70s. Later blood pressure was fine when lying down and again dropped to 71/51 upon standing when checking orthostatics. Ordered normal saline 1 L infusion at 75 mL/hr as recommended by Nephrology. Unable to discharge patient with these changes in vital signs. Will hold Coreg and Procardia XL 09/10: Resume medications in the morning (2) Fall from ground level: Code(s): W18.30XA - Fall on same level, unspecified, initial encounter Status: Acute Assessment and Plan: 09/07/2023: Patient had a ground level fall yesterday when getting out of the car from dialysis, she was noted to fall backwards landing on her buttocks however she hit her arm left arm on the car door, she did not lose consciousness, however she was unable to determine if she hit her head or not. Prior to the fall she noticed some numbness to her left leg when sitting on the toilet, grandson massaged her leg and she was able to get up and ambulate however she felt weakness at that point. She did not fall that instance. Head CT was negative Cervical spine CT, thoracic lumbar spine CT essentially negative for any acute finding X-ray of the ribs with chest, shoulder, hip and pelvis, elbow, humerus, knee are all negative for fracture or any acute findings PT and OT are ordered Bilateral ultrasound venous Doppler ordered Continue neuro checks Q shift 09/07: Return of strength and function left lower extremity as of today. Will investigate possible stroke with MRI echocardiogram lipid panel and initiate aspirin rosuvastatin. 09/08: Patient preferring to stay in the bed than a bedside chair due to discomfort of the buttock with sitting upright. Encouraged patient to change positions frequently and work with therapy. 09/10: ECHO and carotid dopplers negative. (3) ESRD (end stage renal disease) on dialysis: Code(s): N18.6 - End stage renal disease; Z99.2 - Dependence on renal dialysis Status: Chronic Assessment and Plan: 09/07/2023: End-stage renal disease on dialysis on Saturday at [facility] in [place] AV fistula to left upper extremity with positive bruit and thrill Nephrology consulted 09/07: Saturday dialysis, Dr. Perera saw patient today. Potassium noted to be 5.5 with morning labs. Lokelma ordered after discussion with Dr. Perera. Patient will receive dialysis tomorrow. 09/08: Will undergo hospital based dialysis today. 09/10: HD today. (4) Hypertension: Code(s): I10 - Essential (primary) hypertension Status: Chronic Assessment and Plan: 09/07/2023: Blood pressures ranging 137/64 to 149/58 Continue Coreg and Procardia XL 09/09: Orthostatic hypotension today. Coreg and Procardia XL on hold and IV fluids ordered 75 mL/hr for 1 L 09/10: Fluids stopped. HD today. Resume meds tomorrow morning (5) High cholesterol: Code(s): E78.00 - Pure hypercholesterolemia, unspecified Status: Chronic Assessment and Plan: 09/07/2023: Diet controlled Patient lost 75 lb over last couple years which was intentional 09/07: Lipid panel added on to prior labs awaiting results 09/08: Lipid panel well controlled, no stroke on MRI, discontinue rosuvastatin that was started yesterday. (6) Type 2 diabetes mellitus: Code(s): E11.9 - Type 2 diabetes mellitus without complications Status: Chronic Assessment and Plan: 09/07/2023: Blood sugars ranging 215-249 Will check hemoglobin A1c in the morning Patient is normally on Trulicity 1.5 mg weekly, which was placed on hold Low-dose sliding scale insulin ordered Hypogly
[2023-09-12] MEDS: SODIUM ZIRCONIUM CYCLOSILICATE 5 GM POWD.PACK PO (10:12)
[2023-09-12 12:22] LABS: Glucose Point of Care 138 mg/dl (65-105)
[2023-09-12 14:00] VITALS: BP 136/56; PULSE 74; RESP 18; TEMP 36.6; O2SAT 98
[2023-09-12 14:57] LABS: SARS-CoV-2 RNA PCR Negative (Negative)
== END 2023-09-12 16:53 | DRG 312 ==
LOC: ANHED 21:12 → ANH3MED 09-07 00:02
PROVIDERS: Internal Medicine Nephrology; Nurse Practitioner; Nurse Practitioner Acute Care; Admitting Provider Internal Medicine; Emergency Provider Physician Assistant; PCP Internal Medicine Infectious Disease; Visit Provider Nurse Practitioner Acute Care
DX: I95.1 Orthostatic hypotension (principal); N18.6 End stage renal disease; I12.0 Hypertensive chronic kidney disease with stage 5 chronic kidney disease or end stage renal disease; W18.30XA Fall on same level, unspecified, initial encounter; R29.898 Other symptoms and signs involving the musculoskeletal system; E78.00 Pure hypercholesterolemia, unspecified; R26.2 Difficulty in walking, not elsewhere classified; E11.22 Type 2 diabetes mellitus with diabetic chronic kidney disease; E87.5 Hyperkalemia; E78.5 Hyperlipidemia, unspecified; K21.9 Gastro-esophageal reflux disease without esophagitis; D63.1 Anemia in chronic kidney disease; N25.0 Renal osteodystrophy; H54.8 Legal blindness, as defined in USA; Z99.2 Dependence on renal dialysis; Z11.52 Encounter for screening for COVID-19; Z96.1 Presence of intraocular lens; Z98.49 Cataract extraction status, unspecified eye; Z87.891 Personal history of nicotine dependence
CPT/HCPCS: 36415; 70450; 70553; 71046; 71100; 72125; 72128; 72131; 73030; 73060; 73080; 73502; 73564; 80053; 80061; 82948; 83036; 83735; 84100; 84443; 85025; 85027; 85380; 85610; 85730; 86706; 87340; 87635; 93005; 93306; 93880; 93971; 96372; 97110; 97116; 97162; 97165; 97530; 97535; 99285; A9270; A9577; G0257; G0378; J1650; J1815; J2405; J7030; Q5105

== ENCOUNTER 2023-09-17 09:51 | Outpatient (CLI) | payer MEDICARE, MEDICAID, SELFPAY ==
--- NOTE | 2023-09-17 11:00 | NEURO_ITS ---
Impression: # Chronic renal dialysis patient complains of numbness of left hand. # Left ulnar neuropathy. # No Carpal Tunnel Syndrome. # Abnormal needle/EMG exam with neurogenic changes in left 1st DI and ADM. Nerve Conduction Studies Anti Sensory Summary Table Stim Site NR Peak (ms) P-T Amp (?V) Site1 Site2 Delta-P (ms) Dist (cm) Maxwell (m/s) Left Median Anti Sensory (2-3nd Digit) Wrist 3.2 41.1 Wrist 2-3nd Digit 3.2 14.0 44 Wrist 3.3 50.6 Wrist 2-3nd Digit 3.2 14.0 44 Left Radial Anti Sensory (Base 1st Digit) Wrist 2.3 12.2 Wrist Base 1st Digit 2.3 0.0 Left Ulnar Anti Sensory (5th Digit) Wrist 2.6 24.6 Wrist 5th Digit 2.6 14.0 54 Motor Summary Table Stim Site NR Onset (ms) O-P Amp (mV) Site1 Site2 Delta-0 (ms) Dist (cm) Maxwell (m/s) Left Median Motor (Abd Poll Brev) Wrist 3.4 6.5 Elbow Wrist 5.0 29.0 58 Elbow 8.4 3.9 Left Ulnar Motor (Abd Dig Minimi) Wrist 2.3 4.5 A Elbow Wrist 6.3 29.0 46 A Elbow 8.6 3.5 B Elbow Wrist 4.0 19.0 48 B Elbow 6.3 4.1 F Wave Studies NR F-Lat (ms) L-R F-Lat (ms) Left Median (Mrkrs) (Abd Poll Brev) 30.61 Left Ulnar (Mrkrs) (Abd Dig Min) 31.59 EMG Side Muscle Nerve Root Ins Act Fibs Amp Dur Recrt Comment Left 1stDorInt Ulnar C8-T1 Nml Nml Nml >12ms +2 Left Ext Indicis Radial (Post Int) C7-8 Nml Nml Nml Nml Nml Left Ext Digitorum Radial (Post Int) C7-8 Nml Nml Nml Nml Nml Left BrachioRad Radial C5-6 Nml Nml Nml Nml Nml Left PronatorTeres Median C6-7 Nml Nml Nml Nml Nml Left Abd Poll Brev Median C8-T1 Nml Nml Nml Nml Nml Left ABD Dig Min Ulnar C8-T1 Nml Nml Nml >12ms +2 MTDD
== END 2023-09-17 09:52 | disposition home or self-care (01) ==
LOC: ANHNEURO 09:52
PROVIDERS: PCP Internal Medicine Infectious Disease; Visit Provider Internal Medicine Infectious Disease
DX: G56.22 Lesion of ulnar nerve, left upper limb (principal)
CPT/HCPCS: 95886; 95909

== ENCOUNTER 2024-02-19 13:51 | Emergency (ER) | payer MEDICARE, MEDICAID, SELFPAY ==
[2024-02-19] VITALS (8 sets, daily range): BP systolic 147–181; BP diastolic 52–92; PULSE 81–98; RESP 12–18; TEMP 36.9; O2SAT 94–100
--- NOTE | ~2024-02-19 | CT_ITS ---
CT brain wo con Ordering provider: Carmen Erwin MD History: 68 years Female with . R sided WADE, R eye pain . Comparison: September 06, 2023 Technique: CT of the head without contrast. Radiation reduction technique utilized. DLP is 605.33 mGy-cm. FINDINGS: BRAIN PARENCHYMA AND CSF SPACES: Mild leukoaraiosis and diffuse cortical atrophy. Mild atheromatous d isease. Old lacunar infarct in the right basal ganglia. Old lacunar left basal ganglia. No midline sh ift, mass effect or hemorrhage. The brain parenchyma and CSF spaces are otherwise normal. VISUALIZED PARANASAL SINUSES: Well aerated. MASTOIDS: Well aerated. BONES: The bones appear intact. SOFT TISSUES: Visualized nasopharynx is normal. Superficial soft tissues are normal. IMPRESSION: No acute intracranial findings. Reviewed, dictated and finalized at location A.
[2024-02-19 14:24] LABS: Basophils Absolute Auto 0.1 K/mm3 (0.0-0.1); Basophils Percent Auto 0.7 % (0.2-1.2); Eosinophils Absolute Auto 0.5 K/mm3 (0-0.3); Eosinophils Percent Auto 4.9 % (0-4.4); Hematocrit 41.5 % (37.0-47.0); Hemoglobin 13.4 g/dL (12.0-15.0); Immature Granulocyte Absolute 0.04 K/mm3 (0.00-0.031); Immature Granulocyte Percent A 0.4 % (0-0.5); Lymphocytes Absolute Auto 1.28 K/mm3 (0.9-3.2); Lymphocytes Percent Auto 12.9 % (18.3-44.2); Mean Corpuscular HGB Conc 32.3 g/dl (32-36); Mean Corpuscular Volume 96.1 fl (80-100); Mean Platelet Volume 10.3 fl (7.4-10.4); Monocytes Absolute Auto 0.9 K/mm3 (0.1-0.6); Monocytes Percent Auto 8.5 % (2.6-8.5); Neutrophils Absolute Auto 7.2 K/mm3 (1.3-6.7); Neutrophils Percent Auto 72.6 % (45.5-73.1); Platelet Count Result 213 k/mm3 (150-375); Red Blood Count 4.32 M/mm3 (4.2-5.4); Red Cell Distribution Width 13.6 % (11.5-14.5)
[2024-02-19 14:35] LABS: Prothrombin Time 14.2 Seconds (11.1-14.7)
[2024-02-19 14:36] LABS: Partial Thromboplastin Time 26.6 Seconds (22.3-36.8)
[2024-02-19 14:43] LABS: Alanine Aminotransferase 8 U/L (6-35); Albumin Level 4.3 g/dL (3.5-5.1); Alkaline Phosphatase 110 U/L (38-126); Anion Gap 10 mmol/L (4-12); Aspartate Amino Transferase 21 U/L (14-36); Bilirubin,Total 0.8 mg/dL (0.2-1.3); Blood Urea Nitrogen 20 mg/dL (7-17); Calcium 9.5 mg/dL (8.4-10.2); Carbon Dioxide 32 mmol/L (22-30); Chloride 96 mmol/L (98-107); Estimated CRCL calculation 12 ml/min; Estimated Glomerular Filt Rate 9; Glucose 127 mg/dL (65-110); Potassium 4.7 mmol/L (3.4-5.0); Sodium 138 mmol/L (137-145)
--- NOTE | 2024-02-19 15:32 | ED.HA ---
HPI - Headache General Chief Complaint: Headache Stated Complaint: WADE AFTER DIALYSIS Time Seen by Provider: 02/19/24 14:00 History of Present Illness HPI Narrative: 68-year-old female with history of ESRD on dialysis presenting with a headache. States that she completed her dialysis today and as she was leaving she developed a severe right-sided headache that is behind her eye. States that she is legally blind. Her vision is unchanged. She is able to see shadows and some lights. States that she has arthritis in her neck and her shoulders that hurts. No new numbness or weakness. No speech changes. No further complaints. Related Data Home Medications Medication Instructions Recorded Confirmed carvedilol 12.5 mg tablet 12.5 mg PO BID 09/07/23 02/04/24 dulaglutide 1.5 mg/0.5 mL 1.5 mg subcut WEEKLY 09/07/23 02/04/24 subcutaneous pen injector (Trulicity) nifedipine 90 mg tablet,extended 90 mg PO DAILY 09/07/23 02/04/24 release sevelamer carbonate 800 mg tablet 800 mg PO TID 09/07/23 02/04/24 atorvastatin 40 mg tablet 40 mg PO DAILY 02/04/24 02/04/24 Allergies Allergy/AdvReac Type Severity Reaction Status Date / Time captopril [From Capozide] Allergy Rash Verified 02/19/24 14:05 hydrochlorothiazide Allergy Rash Verified 02/19/24 14:05 [From Capozide] Review of Systems Review of Systems: All systems reviewed & are unremarkable except as noted in HPI and below PMFSH Past Medical History Medical History AV fistula Cataracts, bilateral Constipation Depression End-stage renal disease on hemodialysis GERD (gastroesophageal reflux disease) High cholesterol Hypertension Legal blindness Type 2 diabetes mellitus Surgical History Surgical History H/O cataract removal with insertion of prosthetic lens Family History Family History Mother Breast cancer Father Heart disease Diabetes mellitus Hypertension Sibling Lung cancer Diabetes mellitus Social History Social History Smoking status: Current every day smoker Alcohol intake: never Substance use: never Do You Feel Safe in your Home?: Yes Lack of Transportation: No Lack of Food: Never True Current Housing: I Have Housing Concerned About Future Housing: No Difficulty Paying Gas/Electric Bills: No Difficulty Paying for Meds: No Currently Unemployed: No Education: Don't Know Difficulty w/ Childcare or Family Care: No Spiritual care concerns: No Exam Narrative: GENERAL: Nontoxic, intermittently tearful secondary to pain HEAD: Normocephalic, atraumatic. EYES: PERRLA and EOMI. normal conjunctiva ENT: Mucous membranes moist. NECK: Supple. CHEST: No respiratory distress. HEART: Regular rate and rhythm ABDOMEN: Soft, nontender, nondistended. EXTREMITIES: +AV fistula LUE SKIN: Warm, dry, no rash. NEURO: Alert and oriented x3. PSYCH: Normal mood and affect. Course Vital Signs Vital signs: Vital Signs Temperature 98.5 F 02/19/24 13:55 Pulse Rate 98 02/19/24 13:55 Respiratory Rate 18 02/19/24 13:55 Blood Pressure 181/92 H 02/19/24 13:55 Pulse Oximetry 98 02/19/24 13:55 Oxygen Delivery Room Air 02/19/24 13:55 Temperature 98.5 F 02/19/24 13:55 Pulse Rate 81 02/19/24 20:31 Respiratory Rate 14 02/19/24 20:31 Blood Pressure 147/52 H 02/19/24 20:31 Pulse Oximetry 94 02/19/24 20:31 Oxygen Delivery Room Air 02/19/24 13:55 MDM - Headache MDM Narrative Medical decision making narrative: 68-year-old female presenting with a headache following dialysis. Vitals within normal limits. Exam remarkable for the above. On re-evaluation, the patient states that her headache is much improved. States that she feels tingling all over. She
[2024-02-19] MEDS: SODIUM CHLORIDE 0.9% IV 500 ML 999 ML IV CONT (15:48)
[2024-02-19] MEDS: HYDROmorphone HCL INJ (*CRX) 1 MG/ML SYR 0.5 MG IV PUSH (15:48)
[2024-02-19] MEDS: BISACODYL 5 MG TABLET EC PO (22:05)
== END 2024-02-19 22:28 | disposition home or self-care (01) ==
PROVIDERS: Emergency Medicine; Emergency Provider Emergency Medicine; PCP Internal Medicine Infectious Disease
DX: N18.6 End stage renal disease (principal); R51.9 Headache, unspecified; K59.00 Constipation, unspecified; E11.22 Type 2 diabetes mellitus with diabetic chronic kidney disease; I10 Essential (primary) hypertension; Z99.2 Dependence on renal dialysis; H54.8 Legal blindness, as defined in USA; K21.9 Gastro-esophageal reflux disease without esophagitis; F32.A Depression, unspecified; F17.210 Nicotine dependence, cigarettes, uncomplicated
CPT/HCPCS: 36415; 70450; 80053; 85025; 85610; 85730; 96361; 96374; 99284; A9270; J1170; J7040

== ENCOUNTER 2024-05-21 11:48 | Outpatient (CLI) | payer MEDICARE, MEDICAID, SELFPAY ==
--- NOTE | ~2024-05-21 | XR_ITS ---
XR chest 2V 05/21/2024 12:17 Indication: Screening for TB Procedure: 2 view chest Comparison: 09/06/2023 Findings: Cardiomegaly. There is mild interstitial prominence in the perihilar regions. No pleural ef fusion, focal consolidation or pneumothorax. There is a left subclavian stent. There is unchanged ate lectasis/scarring left mid lung. Impression: 1: Bilateral perihilar interstitial infiltrates, suspicious for mild edema versus atypical pneumonia. 2: Cardiomegaly. Reviewed, dictated and finalized at location B. CLERK Impression: 1: Bilateral perihilar interstitial infiltrates, suspicious for mild edema vers us atypical pneumonia. 2: Cardiomegaly.
== END 2024-05-21 11:49 | disposition home or self-care (01) ==
PROVIDERS: PCP Internal Medicine Infectious Disease
DX: Z11.1 Encounter for screening for respiratory tuberculosis (principal); R91.8 Other nonspecific abnormal finding of lung field; I51.7 Cardiomegaly
CPT/HCPCS: 71046

== ENCOUNTER 2024-08-22 08:03 | Outpatient (CLI) | payer MEDICARE, SELFPAY ==
--- OUTSIDE RECORDS SUMMARY | 2024-08-22 08:10 | XMS_ITS | Encounter Summary ---
Author Organization [facility] Address [address] [place] [address] Care Team Providers Care Denture Packer Name Role Phone Gilles Morrison INSURANCE HEALTHCARE CONSULTANT-SPECIAL CERTIFICATE DICTATOR Primary Care Provider Encounter Details Date Type Department Care Team (Late Contact Info) Description 03/22/2023 Telephone [facility] . Wound Care [address] [place] [address] , [address] [id number] Binh Messina RN Social History Tobacco Use Types Packs/Day Years Used Date Smoking Tobacco: Former Cigarettes 3 15 1 06/17/1974 - 04/17/1990 Smokeless Tobacco: Never Alcohol Use Standard Drinks/Week Comments No 0 (1 standard drink = 0.6 oz pur e alcohol) AUDIT-C Answer Date Recorded Q1: How often do you have a drink containing alcohol? Never 04/12/2022 Q2: How many drinks containi ng alcohol do you have on a typical day when you are drinking? Patient does not drink Q3: How often do you have si x or more drinks on one occasion? Never 04/12/2022 Sex and Gender Information Value Date Recorded Sex Assigned at Not on file Gender Identity Not on file Sexual Orientation Not on file documented as of this encounter Plan of Treatment Upcoming Encounters Date Type Department Care Team (Late Contact Info) Description 10/01/2024 11:00 AM CDT Appointment [facility] Vascular Services [id number] [place] [address], [address] [place] [address] documented as of this encounter Visit Diagnoses Not on filedocumented in this encounter Care Teams Denture Packer Relationship Specialty Start Date End Date Gilles Morrison, INSURANCE HEALTHCARE CONSULTANT-SPECIAL CERTIFICATE DICTATOR [address] [place] [address] PCP - General Nurse Practitioner 07/15/18 documented as of this encounter
--- OUTSIDE RECORDS SUMMARY | 2024-08-22 08:10 | XMS_ITS | Data Portability ---
Author Organization [facility] [employer], Main Office Address [address] [place] [address] Assessment No assessment recorded. Plan of Treatment Reminders Order Date Submit Date Provider Last Modified By Organization Details Last Modified Time Details Appointments Any 15 2024 02:15P NIKKI Bird Not available Not available Not available Lab hemoglobi n A1C, fingersti ck 2024 025 [facility], [address] [place] [address], [address], 08/11/2024 16:39:48 TSH, serum or plasma [email or web address] [place] [address] (Lab), [address] [place], [address], 08/18/2024 11:22:18 TSH, serum or plasma [email or web address] (Lab), [address] [place], [address], 08/18/2024 11:22:18 lipid panel, serum [email or web address] (Lab), [address] [place], [address], 08/18/2024 11:22:17 CBC w/ auto diff [email or web address] (Lab), [address] [place], [address], 08/18/2024 11:22:17 CMP, serum or plasma [email or web address] (Lab), [address] [place], [address], 08/18/2024 11:22:18 CK (creatine kinase), total, serum [email or web address] (Lab), [address] [place], [address], 08/18/2024 11:22:18 Referral None recorded. Procedures None recorded. Surgeries None recorded. Imaging None recorded. Medication Orders Trulicity 0.75 mg/0.5 mL subcutane ous pen injector [address], [place], [place], [id number], 08/11/2024 16:24:20 Patient TargetsNo targets recorded. Patient InstructionsNo instructions recorded. Reason for Referral None Reported. Problems Name Problem SNOMED Code Status Onset Date Resolution Date Notes Provider Name and Address Organization Details Recorded Time Incontinen ce 76571787 Active 2024 NIKKI West [address], [place], [address] , [email or web address] 16:22:52 Hypothyroi dism 27151168 Active 2024 NIKKI West [address], [place], [address] , [email or web address] 16:25:42 Hyperlipid emia 38973424 Active 2024 NIKKI West [address], [place], [address] , [email or web address] 16:25:59 Chronic kidney disease 405136614 Active 2024 NIKKI West [address], [place], [address] , [facility] [employer] [facility] 5 21:38:24 Obese 599403634 Active 2024 NIKKI West [address], [place], [address] , [facility] [employer] [facility] 5 21:38:41 Peripheral neuropathy due to type 2 diabetes mellitus 5599057099566 Active 2020 Not Available [facility] 3 04:37:04 Ulcer 820649609 Active Not Available [facility] 3 04:37:04 Type 2 diabetes mellitus 85497746 Active Not Available [facility] 3 04:37:04 Diabetes mellitus 92372136 Active 2020 Not Available [facility] 3 04:37:04 Skin lesion 10316547 Active Not Available [facility] 3 04:37:04 Problem Notes None recorded. Procedures Surgical History Date Name Laterality Status Provider Name and Address Organization Details Recorded Time closure of fistula of kidney completed Carolina Gaitan RN [facility] [employer] [facility] 08/11/2024 16:12:30 Imaging Results None recorded. Procedure Notes None recorded. Medical Equipment None Reported. Allergies Allergen ID Allergen Name Allergen Category Reaction Reaction Severity Criticality Documentation Date Start Date Code Code System Note Provider Name and Address Organization Details Recorded Time 33886 capecitab ine medicatio n Not available Not available Not available 08/11/2024 33629 0 RxNorm Carolina Gaitan RN [facility], [facility] [employer] [facility] 16:02:10 Medications Name Sig Start Date Stop Date Status Note LastModified by Organization Details LastModified Time losartan 50 mg tablet 08/11 completed Not Available Not Available Not Available amoxicillin 500 mg capsule 08/11 completed Not Available Not Available Not Available atorvastati n 40 mg tablet active Not Available Not Available Not Available metformin 500 mg tablet 08/11 completed Not Available Not Available Not Available carvedilol 12.5 mg tablet active Not Available Not Available Not Available bumetanide 2 mg tablet 08/11 completed Not Available Not Available Not Available ibuprofen 800 mg tablet active Not Available Not Available Not Available nifedipine ER 90 mg tablet,exte nded release Take 1 tablet every day by oral route. active Not Available Not Available No t Available fluconazole 150 mg tablet 08/11 completed Not Available Not Available Not Available ampicillin 500 mg capsule 06/17 completed Not Available Not Available Not Available hydrocodone 5 mg-acetamin ophen 325 mg tablet 08/11 completed Not Available Not Available Not Available sevelamer HCl 800 mg tablet TAKE 2 TABLETS BY MOUTH THREE TIMES DAILY active Not Available Not Available No t Available famotidine 40 mg tablet 08/11 completed Not Available Not Available Not Available permethrin 5 % topical cream 08/11 completed Not Available Not Available Not Available ciprofloxac in 500 mg tablet TK 1 T PO Q 12 H FOR 10 DAYS 08/11 completed Not Available Not Available Not Available omeprazole 40 mg capsule,del ayed release 08/11 completed Not Available Not Available Not Available glimepiride 1 mg tablet TAKE 1 TABLET BY MOUTH ONCE DAILY 08/11 completed Not Available Not Available Not Available levothyroxi ne 75 mcg tablet TAKE 1 TABLET BY MOUTH ONCE DAILY 08/11 completed Not Available Not Available Not Available famotidine 20 mg tablet TAKE 1 TABLET BY MOUTH TWICE DAILY. 08/11 completed Not Available Not Available Not Available nifedipine ER 60 mg tablet,exte nded release 24 hr 08/11 completed Not Available Not Available Not Available OneTouch Ultra Test strips active Not Available Not Available Not Available benzonatate 100 mg capsule TAKE 1 CAPSULE BY MOUTH EVERY 6 HOURS NEEDED 08/11 completed Not Available Not Available Not Available cephalexin 500 mg capsule 08/11 completed Not Available Not Available Not Available triamcinolo ne acetonide 0.1 % topical ointment 08/11 completed Not Available Not Available Not Available ropinirole 0.5 mg tablet 08/11 completed Not Available Not Available Not Available nystatin 100,000 unit/gram topical cream 08/11 completed Not Available Not Available Not Available ranitidine 150 mg tablet 08/11 completed Not Available Not Available Not Available losartan 25 mg tablet active Not Available Not Available No t Available omeprazole 20 mg capsule,del ayed release TAKE 1 CAPSULE BY MOUTH TWICE DAILY 08/11 completed Not Available Not Available Not Available bumetanide 1 mg tablet 08/11 completed Not Available Not Available Not Available mupirocin 2 % topical ointment apply to wound daily 08/11 completed Not Available Not Available Not Available levofloxaci n 750 mg tablet active Not Available Not Available Not Available albuterol sulfate HFA 90 mcg/actuati on aerosol inhaler INHALE 2 PUFFS BY MOUTH EVERY 4 HOURS NEEDED 08/11 completed Not Available Not Available Not Available Vitamin D2 1,250 mcg (50,000 unit) capsule 08/11 completed Not Available Not Available Not Available nifedipine ER 60 mg tablet,exte nded release TAKE 1 TABLET BY MOUTH ONCE DAILY 08/11 completed Not Available Not Available Not Available cefdinir 300 mg capsule 08/11 completed Not Available Not Available Not Available dicyclomine 10 mg capsule 08/11 completed Not Available Not Available Not Available Asprin Ec Low Dose 81 mg tablet,terri yed release Take 1 tablet every day by oral route. active Not Available Not Available No t Available nitrofurant oin monohydrate /macrocryst als 100 mg capsule 08/11 completed Not Available Not Available Not Available Atrovent HFA 17 mcg/actuati on aerosol inhaler INHALE 2 PUFFS BY MOUTH EVERY 4 HOURS NEEDED 08/11 completed Not Available Not Available Not Available OneTouch UltraMini kit active Not Available Not Available Not Available sevelamer carbonate 800 mg tablet 08/11 completed Not Available Not Available Not Available Dificid 200 mg tablet 08/11 completed Not Available Not Available Not Available Trulicity 1.5 mg/0.5 mL subcutaneou s pen injector active Not Available Not Available Not Available Trulicity 0.75 mg/0.5 mL subcutaneou s pen injector Inject 0.75 mg every week by subcutane ous route for 30 days. 2024 active Not Available Not Available Not Avai lable Vitals Date Recorded Body mass index (BMI) Body height Oxygen saturation Oxygen saturation in Arterial blood by Pulse oximetry Heart rate Respiratory rate Body temperature Body weight Systolic blood pressure Diastolic blood pressure Provider Name and Address Organization Details Last Updated DateTime 1 40.7 kg/m2 170.18 cm 95 % 95 % 93 /min 18 /min 97.2 [degF] 715774. 02 g 130 mm[Hg] 80 mm[Hg] Not Available [facility] 3 04:35:52 Date Recorded Body mass index (BMI) Body height Heart rate Body weight Systolic blood pressure Diastolic blood pressure Provider Name and Address Organization Details Last Updated DateTime 1 40.7 kg/m2 170.18 cm 61 /min 525182. 02 g 130 mm[Hg] 76 mm[Hg] Not Available [facility] 3 04:35:52 Date Recorded Body height Oxygen saturation Oxygen saturation in Arterial blood by Pulse oximetry Heart rate Respiratory rate Body temperature Systolic blood pressure Diastolic blood pressure Provider Name and Address Organization Details Last Updated DateTime 1 170.18 cm 100 % 100 % 82 /min 18 /min 97.7 [degF] 171 mm[Hg] 74 mm[Hg] Not Available [facility] 3 04:35:53 Date Recorded Body height Body mass index (BMI) Body weight Body temperature Heart rate Respiratory rate Oxygen saturation Oxygen saturation in Arterial blood by Pulse oximetry Systolic blood pressure Diastolic blood pressure Provider Name and Address Organization Details Last Updated DateTime 5 165.1 cm 32.4 kg/m2 67980.5 1 g 97.6 [degF] 72 /min 16 /min 98 % 98 % 118 mm[Hg] 76 mm[Hg] Carolina Gaitan RN [place] [facility] [employer] [facility] 5 16:14:57 Social History Question Answer Notes LastModified by Organizat ion Details LastModified Time Tobacco Smoking Status Former Smoker Not Available [facility] 08/08/2022 04:30:32 Do You Have An Advance Directive? No [email or web address] Information not available 08/11/2024 What Is Your Level Of Alcohol Consumption? None Information not available 08/11/2024 Are You Blind Or Do You Have Difficulty Seeing? Yes Blind [email or web address] Information not available 08/11/2024 What Is Your Level Of Caffeine Consumption? None [email or web address] Information not available 08/11/2024 Are You Deaf Or Do You Have Serious Difficulty Hearing? Yes [email or web address] Information not available 08/11/2024 What Type Of Diet Are You Following? SPECIFIC Renal Diet --on Dialysis [email or web address] Information not available 08/11/2024 What Is The Highest Grade Or Level Of School You Have Completed Or The Highest Degree You Have Received? [id number] [email or web address] Information not available 08/11/2024 Have There Been Any Changes To Your Family Or Social Situation? No [email or web address] Information not available 08/11/2024 When Did You Quit Smoking? 16+yearssinc elastcigaret te [email or web address] Information not available 08/11/2024 Do You Use Insect Repellent Routinely? No [email or web address] Information not available 08/11/2024 Where Do You Live? [place] [email or web address] Information not available 08/11/2024 Do You Have A Medical Power Of Material Controller? No [email or web address] Information not available 08/11/2024 How Many Children Do You Have? 3 Information not available 08/11/2024 Do You Have Any Pets? Yes Cat [email or web address] Information not available 08/11/2024 What Is Your Relationship Status? [email or web address] Information not available 08/11/2024 Do You Have Smoke And Carbon Monoxide Detectors In Your Home? Yes [email or web address] Information not available 08/11/2024 Are You Passively Exposed To Smoke? Yes [email or web address] Information not available 08/11/2024 Are There Any Smokers In Your House? Yes Information not available 08/11/2024 Do You Use Any Illicit Or Recreational Drugs? No [email or web address] Information not available 08/11/2024 Do You Use Sunscreen Routinely? No [email or web address] Information not available 08/11/2024 Sex: Unknown Functional Status Question Answer Note LastModified by Organizat ion Details LastModified Time Do you have difficulty walking or climbing stairs? Yes [email or web address] Information not available 08/11/2024 Are you able to walk? YESLIMIT [email or web address] Information not available 08/11/2024 Are you able to care for yourself? Yes [email or web address] Information n ot available 08/11/2024 Mental Status Question Answer Note LastModified by Organization D etails LastModified Time Do you have difficulty concentrating, remembering or making decisions? Yes Information no t available 08/11/2024 Family History Relationship Description Onset Age of this Age Resolved Age Notes LastModified by Organization Details LastModified Time Brother Diabetes mellitus [email or web address] [id number] Not available 08/08/2022 04:31:45 Father Heart disease Diabet ic [email or web address] [id number] Not available 08/08/2022 04:31:45 Mother Heart disease Breast Cancer [email or web address] [id number] Not available 08/08/2022 04:31:45 Maternal Grandmother Malignant tumor of breast [email or web address] Not available 2024 16:07:44 Father Diabetes mellitus [email or web address] Not available 2024 16:07:55 Medical History Condition Response HYPERTHYROIDISM Y DIABETES, TYPE Y DIALYSIS Y Gynecological HistoryNo gynecological history recorded. Obstetrics History GPAL:G 0 P 0 0 0 0 Past Encounters Encounter ID Performer Location Encounter Start Date Encounter Closed Date Diagnosis/Indication Diagnosis SNOMED-CT Code Diagnosis ICD10 Code Diagnosis Note [id number] _ATHENA_M IGRATION_ DEFAULT_1 _1 , 10/14/2020 00:00:00 10/14/2020 12:29:24 [id number] _ATHENA_M IGRATION_ DEFAULT_1 _1 , 12/02/2020 00:00:00 12/04/2020 12:59:23 [id number] [facility] [address] [place] [address] 12/13/2020 00:00:00 12/15/2020 13:51:42 [id number] NIKKI West [facility] [address] [address] 08/11/2024 15:54:04 08/11/2024 17:28:14 Type 2 diabetes mellitus 70953154 E11.21 Incontinence 34546597 R3 2 Peripheral neuropathy due to type 2 diabetes mellitus 1684924284 107 E11.42 Hypothyroidism 45172003 E03.9 Hyperlipidemia 10650974 E78.5 Chronic ki dney disease 568772532 N18.9 Obese 633626979 E66.9 Health Concerns Section Related Observation LastModified by Organization Detai ls LastModified Time None Recorded Concern Status LastModified by Organization Details LastModified Time None Recorded Advance Directives Directive N: Payers Encounter Date Sequence Insurance Name Policy Number Policy Olivares Covered Member ID Loivares Member ID Guarantor Name 08/11/2024 1 [facility] (MEDICARE REPLACEMENT/A DVANTAGE - POS) [id number] Zuleyka Tinoco [id number] Zuleyka Tinoco 08/11/2024 2 [facility] ON OR AFTER 12/08/20 (MEDICAID REPLACEMENT - HMO) Zuleyka Tinoco [id number] Zuleyka Tinoco Notes Date Note Type Note Provider Name and Address Organization Details Recorded Time 08/11/2024 text/html Type 2 Diabetes , kidney disease , on dialysis NIKKI West [address] [facility] [address], [place], [address], [place] [facility] [employer] [facility] 08/16/2024 21:39:03 OBGyn Episode No OBEpisode recorded.
--- OUTSIDE RECORDS SUMMARY | 2024-08-22 08:10 | XMS_ITS ---
Author Organization [facility] Address [facility] [place] [address] Care Team Providers Care Glue Specialty Supervisor Name Role Phone Meggan Littlejohn MD Primary Care Provider Dialysis Access Sites Type Status Location Placement Date Removal Da te AV fistula Active Left Upper Arm - Anterior Procedures Procedure Name Priority Date/Time Associated Diagnosis Comments EGFR Routine 06/27/2022 6:53 AM FAMILY AND DIVORCE LEGAL ASSISTANT HEPATITIS PANEL, ACUTE STAT 06/25/2022 9:29 AM FAMILY AND DIVORCE LEGAL ASSISTANT from Last 3 Months or Most Recently Relevant to Health Maintenance Allergies Active Allergy Reactions Criticality Noted Date Comments Captopril-Hydrochlorothiazide Rash Medium 2022 Medications benzonatate (TESSALON) 100 mg capsuleIndications:C ough Take 100 mg by mouth every 6 (six) hours as needed for cough Active bisacodyL (DULCOLAX) 10 mg suppositoryIndicatio ns:constipation Insert 10 mg into the rectum daily as needed for constipation If no results from MOM Active carvediloL (COREG) 12.5 mg tabletIndications:hy pertension Take 12.5 mg by mouth 2 (two) times a day with meals Active magnesium citrate solutionIndications: constipation Take 296 mL by mouth daily as needed For constipation in AM if no results after enema. Active ferrous sulfate 325 mg (65 mg of elemental iron) tabletIndications:Ir on Deficiency Anemia,for supplementation Take 65 mg of elemental iron by mouth daily with breakfast Active NIFEdipine (NIFEdipine XL) 60 mg 24 hr tabletIndications:fo r cardiac Take 60 mg by mouth daily Active magnesium hydroxide (MILK OF MAGNESIA) suspension 400 mg/5 mLIndications:consti pation Take 30 mL by mouth daily as needed For constipation at bed time if not BM in 3 days Active acetaminophen (TYLENOL) 325 mg tabletIndications:Pa in Take 650 mg by mouth every 4 (four) hours as needed for pain Active aluminum-magnesium hydroxide-simethicon e (MAALOX) suspension 200-200-20 mg/5 mLIndications:Flatul ence Take by mouth Active omeprazole 20 mg tablet,delayed release (DR/EC)Indications:G ERD Take 20 mg by mouth 2 (two) times a day Active ergocalciferol (VITAMIN D) 50,000 unit capsuleIndications:V itamin D Deficiency Take 50,000 Units by mouth once a week Every Saturday Active dulaglutide (TRULICITY) 1.5 mg/0.5 mL pen injectorIndications: type 2 diabetes mellitus Inject 1.5 mg under the skin once a week in early AM On Saturday Active sevelamer (RENVELA) 800 mg tabletIndications:Re nal Osteodystrophy with Hyperphosphatemia Take 2,400 mg by mouth 3 (three) times a day with meals Active glucagon 1 mg kit Inject 1 mg into the muscle as instructed as needed (For BS < 70 if unable to swallow. Administer and theen recheck BS and notify MD.) Active mineral oil (FLEET MINERAL OIL) enemaIndications:con stipation Insert 1 enema into the rectum once Insert 1 application rectally every 24 hours as needed for constipation if no results 1 day after suppository Active Active Problems Problem Noted Date Diagnosed Date COVID-19 06/26/2022 Pyelonephritis 06/26/2022 Diabetes type 2, controlled 06/26/2022 Hypoglycemia 06/24/2022 Gastroesophageal reflux disease without esophagi tis Hypertension Immunizations Immunization Administration Dates Next Due Influenza, Unspecified 03/12/2022 Social History Tobacco Use Types Packs/Day Years Used Date Smoking Tobacco: Former Cigarettes Smokeless Tobacco: Never Tobacco Cessation:Counseling Given: Not Answered Social Connection and Isolat ion Panel [NHANES] Answer Date Recorded In a typical week, how many times do you talk on the phone with family, friends, or neighbors? More than three times a week 06/26/2022 How often do you get togethe r with friends or relatives? More than three times a week 06/26/2022 How often do you attend chur ch or sabianist services? Never 06/26/2022 Do you belong to any clubs o r organizations such as synagogue groups, unions, fraternal or athletic groups, or school groups? No 06/26/2022 How often do you attend meet ings of the clubs or organizations you belong to? Never 06/26/2022 Are you , , di vorced, , never , or living with a partner? 06/26/2022 Overall Financial Resource Strain (CARDIA) Answe r Date Recorded How hard is it for you to pa y for the very basics like food, housing, medical care, and heating? Not very hard 06/26/2022 Hunger Vital Sign Answer Date Recorded Within the past 12 months, y ou worried that your food would run out before you got the money to buy more. Sometimes true Within the past 12 months, t he food you bought just didn't last and you didn't have money to get more. Sometimes true PRAPARE - Transportation Answer Date Re corded In the past 12 months, has l ack of transportation kept you from medical appointments or from getting medications? No 06/10 In the past 12 months, has l ack of transportation kept you from meetings, work, or from getting things needed for daily living? No 06/26/2022 Housing Stability Vital Sign Answer [facility] Recorded In the last 12 months, was t here a time when you were not able to pay the mortgage or rent on time? No 06/26/2022 In the last 12 months, how many places have you lived? 1 06/26/2022 In the last 12 months, was t here a time when you did not have a steady place to sleep or slept in a chcf (including now)? No 06/26/2022 Personal Safety Answer Date Recorded Getting School Help Needed Denies 06/16 Comments Unknown Sex and Gender Information Value Date Recorded Sex Assigned at Not on file Legal Sex Female 5:36 PM FAMILY AND DIVORCE LEGAL ASSISTANT Gender Identity Not on file Sexual Orientation Not on file Last Filed Vital Signs Vital Sign Reading Time Taken Comments Blood Pressure 155/53 06/27/2022 1:12 PM FAMILY AND DIVORCE LEGAL ASSISTANT Pulse 86 06/27/2022 1:12 PM FAMILY AND DIVORCE LEGAL ASSISTANT Temperature 36.8 C (98.2 F) 06/27/2022 1:12 PM FAMILY AND DIVORCE LEGAL ASSISTANT Respiratory Rate 16 06/27/2022 1:12 PM FAMILY AND DIVORCE LEGAL ASSISTANT Oxygen Saturation 95% 06/27/2022 1:12 PM FAMILY AND DIVORCE LEGAL ASSISTANT Inhaled Oxygen Concentration - - Weight 103.3 kg (227 lb 12.8 oz) 06/27/2022 4:33 AM FAMILY AND DIVORCE LEGAL ASSISTANT Height 162.6 cm (5' 4 ) 06/25/2022 12:1 5 AM FAMILY AND DIVORCE LEGAL ASSISTANT Body Mass Index 39.1 06/25/2022 12:15 AM FAMILY AND DIVORCE LEGAL ASSISTANT Results * eGFR (06/27/2022 6:53 AM FAMILY AND DIVORCE LEGAL ASSISTANT) eGFR 6 mL/min/1. 73 m2 IRIS DE ANDA ([place]) Comment: Interpretive Data Reference Interval Normal >/= 90 mL/min/1.73m2 Mildly decreased* 60 - 89 mL/min/1.73m2 Mildly to moderately decreased 45 - 59 mL/min/1.73m2 Moderately to severely decreased 30 - 44 mL/min/1.73m2 Severely decreased 15 - 29 mL/min/1.73m2 Kidney Failure < 15 mL/min/1.73m2 *Relative to young adult level Estimated glomerular filtration rate is determined by the 2020 CKD-EPI equation recommended by the National Kidney Foundation (A Unifying Approach to GFR Estimation: Recommendations of the NKF-ASK Task Force on Reassessing the Inclusion of Race in Diagnosing Kidney Disease, JASN 2020). The CKD-EPI equation should not be used for patients with unstable renal function and has not been validated in children and those over 70. Current interpretive data was last reviewed 2021. Blood 06/27/2022 6:53 AM FAMILY AND DIVORCE LEGAL ASSISTANT 06/27/2022 7:23 AM FAMILY AND DIVORCE LEGAL ASSISTANT us Juaquin Alonzo MD LAB BLOOD ORDERABLES Final Resul t IRIS DE ANDA ([place]) 1 [facility] Department [place] [address] * Hepatitis panel, acute (06/25/2022 9:29 AM FAMILY AND DIVORCE LEGAL ASSISTANT) Hep A IgM Nonreactive Nonreactive IRIS DE ANDA ([place]) Comment: Interpretive Data: If Hep A IgM Ab is reported as Equivocal, a new sample should be drawn in two weeks for testing. Current interpretive data was last revised on 19. Testing performed by: [facility], [address] [place] [address]., [id number] Hep B core IgM Nonreactive Nonreactive Leonid DE ANDA ([place]) Comment: Interpretive Data If HepB Core IgM Ab is reported as Equivocal, a new sample should be drawn in two weeks for testing. Current interpretive data was last revised on 19. Testing performed by: [facility], [address] [place] [address]., [id number] Hep C Ab Nonreactive Nonreactive IRIS DE ANDA ([place]) Comment: Interpretive Data Nonreactive: Antibodies to HCV not detected. Does NOT exclude the possibility of recent exposure to HCV. Equivocal: Equivocal for HCV antibodies. Supplemental molecular testing will be automatically performed to determine infection status in accordance with current CDC screening recommendations. Reactive: Positive for HCV antibodies. This may represent current or past HCV infection. Supplemental molecular testing will be automatically performed to determine current infection status in accordance with current CDC screening recommendations. Interpretive data was last revised on 2019. Testing performed by: [facility], [address] [place] [address]., [id number] HepBsAg Nonreactive Nonreactive IRIS DE ANDA ([place]) Comment:Testing performed by : [address] [id number] Blood 06/25/2022 9:29 AM FAMILY AND DIVORCE LEGAL ASSISTANT 06/25/2022 2:48 PM FAMILY AND DIVORCE LEGAL ASSISTANT us Dimitris Owens MD LAB MICROBIOLOGY - GENERAL OR DERABLES Final Result IRIS DE ANDA ([place]) 1 [facility] Department of [employer] [place], [place] [id number] from Last 3 Months or Most Recently Relevant to Health Maintenance
--- OUTSIDE RECORDS SUMMARY | 2024-08-22 08:10 | XMS_ITS | Clinical Summary ---
Author Organization [facility] Address [facility] [place] [address] Care Team Providers Care Surgery Tech Name Role Phone Meggan Littlejohn MD Primary Care Provider Allergies Active Allergy Reactions Criticality Noted Date [...] a week in early AM On Saturday morning Active sevelamer (RENVELA) 800 mg tabletIndications:Re nal [...] 06/26/2022 How often do you attend chur or hinduism services? Never 06/26/2022 Do you belong to any clubs o r organizations such as episcopal groups, unions, fraternal or athletic groups, or [...] place to sleep or slept in a senior living (including now)? No 06/26/2022 Personal Safety Answer Date Recorded Getting School Help Needed Denies 06/16 Comments Unknown Sex and Gender Information Value Date Recorded Sex Assigned at Not on file Legal Sex Female 5:36 PM PUPPY WALKER Gender Identity Not on file Sexual Orientation Not on file Obstetrics History Last Filed Vital Signs Vital Sign Reading Time Taken Comments Blood Pressure 155/53 06/27/2022 1:12 PM PUPPY WALKER Pulse 86 06/27/2022 1:12 PM PUPPY WALKER Temperature 36.8 C (98.2 F) 06/27/2022 1:12 PM PUPPY WALKER Respiratory Rate 16 06/27/2022 1:12 PM PUPPY WALKER Oxygen Saturation 95% 06/27/2022 1:12 PM PUPPY WALKER Inhaled Oxygen Concentration - - Weight 103.3 kg (227 lb 12.8 oz) 06/27/2022 4:33 AM PUPPY WALKER Height 162.6 cm (5' 4 ) 06/25/2022 12:1 5 AM PUPPY WALKER Body Mass Index 39.1 06/25/2022 12:15 AM PUPPY WALKER Plan of Treatment Health Maintenance Due Date Last Done Comments Albumin Creatinine Ratio, Urine 1956 Colon Cancer Screening-Colonoscopy 1955 Depression Screening 1956 Hemoglobin A1C 1956 Osteoporosis Screening-Bone Density Scan 1956 Dilated Eye Exam 1956 Foot Exam 1956 Lipid Panel 1956 Hepatitis B Screening 1974 Zoster Vaccine (1 of 2) 2006 Pneumococcal vaccine 65+ (2 of 2 - PCV) 03/28/2017 03/28/2016 Well Visit 65+ 2021 Fall Risk Assessment 06/27/2023 06/27/2022 eGFR 06/27/2023 06/27/2022, 06/10, 06/25/2022, Additional history exists Influenza Vaccine (#1) 2024 , 04/11/2022, 03/12/2022, Additional history exists Breast Cancer Screening-Mammogram 09/03/2024 09/04/2023, 01/30/2017, 01/18/2016 DTaP/Tdap/Td Vaccine (2 - Td or Tdap) 08/01/2033 08/01/2023 Hepatitis C Screening Completed 06/25/2022 Procedures Procedure Name Priority Date/Time Associated Diagnosis Comments EGFR Routine 06/27/2022 6:53 AM PUPPY WALKER HEPATITIS PANEL, ACUTE STAT 06/25/2022 9:29 AM PUPPY WALKER from Last 3 Months or Most Recently Relevant to Health Maintenance Results * eGFR (06/27/2022 6:53 AM PUPPY WALKER) eGFR 6 mL/min/1. 73 m2 IRIS DE ANDA ([place]) Comment: Interpretive Data Reference Interval Normal >/= [...] last reviewed 2021. Blood 06/27/2022 6:53 AM PUPPY WALKER 06/27/2022 7:23 AM PUPPY WALKER us Juaquin Alonzo MD LAB BLOOD ORDERABLES Final Resul t IRIS DE ANDA ([place]) 1 [facility] Department [place] [address] * Hepatitis panel, acute (06/25/2022 9:29 AM PUPPY WALKER) Hep A IgM Nonreactive Nonreactive IRIS DE ANDA ([place]) Comment: Interpretive Data: If Hep A IgM Ab is reported as Equivocal, a new sample should be drawn in two weeks for testing. Current interpretive data was last revised on 19. Testing performed by: [facility], [address] [place] [address], [place]., [address] Hep B core IgM Nonreactive Nonreactive Leonid DE ANDA ([place]) Comment: Interpretive Data If HepB Core IgM Ab is reported as Equivocal, a new sample should be drawn in two weeks for testing. Current interpretive data was last revised on 19. Testing performed by: [facility], [address] [place] [address], [place]., [address] Hep C Ab Nonreactive Nonreactive IRIS DE [...] last revised on 2019. Testing performed by: [facility], [address] [place] [address]., [id number] HepBsAg Nonreactive Nonreactive IRIS DE ANDA ([place]) Comment:Testing performed by : [facility], [address] [place] [address]., [id number] Blood 06/25/2022 9:29 AM PUPPY WALKER 06/25/2022 2:48 PM PUPPY WALKER Dimitris Owens MD LAB MICROBIOLOGY - GENERAL OR DERABLES Final Result IRIS DE ANDA ([place]) 1 [facility] Department [place] [address] from Last 3 Months or Most Recently Relevant to Health Maintenance Insurance [employer] Advance Directives For more information, please contact: [phone] * Full Code (Latest Code Status on File) Date Activated Date Inactivated Comments 06/24/2022 11:13 PM 06/28/2022 12:08 AM Care Teams Surgery Tech Relationship Specialty Start Date End Date Meggan Littlejohn MD [address] [place] [id number] PCP - General 01/01/17
--- OUTSIDE RECORDS SUMMARY | 2024-08-22 08:10 | XMS_ITS | Referral Summary ---
Author Organization [facility] Address [facility] [place] [address] Care Team Providers Care Medical Director Of Hospice Name Role Phone Meggan Littlejohn MD Primary [...] How often do you attend chur or sabianist services? Never 06/26/2022 Do you belong to any clubs o r organizations such as anglican groups, unions, fraternal or athletic groups, or [...] place to sleep or slept in a half-way (including now)? No 06/26/2022 Personal Safety Answer Date Recorded Getting School Help Needed Denies 06/16 Comments Unknown Sex and Gender Information Value Date Recorded Sex Assigned at Not on file Legal Sex Female 5:36 PM PLUG GROWER Gender Identity Not on file Sexual Orientation Not on file Last Filed Vital Signs Vital Sign Reading Time Taken Comments Blood Pressure 155/53 06/27/2022 1:12 PM PLUG GROWER Pulse 86 06/27/2022 1:12 PM PLUG GROWER Temperature 36.8 C (98.2 F) 06/27/2022 1:12 PM PLUG GROWER Respiratory Rate 16 06/27/2022 1:12 PM PLUG GROWER Oxygen Saturation 95% 06/27/2022 1:12 PM PLUG GROWER Inhaled Oxygen Concentration - - Weight 103.3 kg (227 lb 12.8 oz) 06/27/2022 4:33 AM PLUG GROWER Height 162.6 cm (5' 4 ) 06/25/2022 12:1 5 AM PLUG GROWER Body Mass Index 39.1 06/25/2022 12:15 AM PLUG GROWER Plan of Treatment Not on file Procedures Procedure Name Priority Date/Time Associated Diagnosis Comments EGFR Routine 06/27/2022 6:53 AM PLUG GROWER HEPATITIS PANEL, ACUTE STAT 06/25/2022 9:29 AM PLUG GROWER from Last 3 Months or Most Recently Relevant to Health Maintenance Results * eGFR (06/27/2022 6:53 AM PLUG GROWER) eGFR 6 mL/min/1. 73 m2 IRIS DE [...] last reviewed 2021. Blood 06/27/2022 6:53 AM PLUG GROWER 06/27/2022 7:23 AM PLUG GROWER us Juaquin Alonzo MD LAB BLOOD ORDERABLES Final Resul t IRIS DE ANDA ([place]) 1 [facility] Department [place] [address] * Hepatitis panel, acute (06/25/2022 9:29 AM PLUG GROWER) Hep A IgM Nonreactive Nonreactive IRIS DE ANDA ([place]) Comment: Interpretive Data: If Hep A IgM Ab is reported as Equivocal, a new sample should be drawn in two weeks for testing. Current interpretive data was last revised on 19. Testing performed by: [facility], [address] [place] [address]., [id number] Hep B core IgM Nonreactive Nonreactive C GABBIE DE ANDA ([place]) Comment: Interpretive Data If HepB Core IgM Ab is reported as Equivocal, a new sample should be drawn in two weeks for testing. Current interpretive data was last revised on 19. Testing performed by: [facility], [address] [place] [address]., [id number] Hep C Ab Nonreactive Nonreactive IRIS DE [...] last revised on 2019. Testing performed by: [facility], [address] [place] [address]., [id number] HepBsAg Nonreactive Nonreactive IRIS DE ANDA ([place]) Comment:Testing performed by : [facility], [address] [place] [address]., [id number] Blood 06/25/2022 9:29 AM PLUG GROWER 06/25/2022 2:48 PM PLUG GROWER Dimitris Owens MD LAB MICROBIOLOGY - GENERAL OR DERABLES Final Result IRIS DE ANDA ([place]) 1 [facility] Department [place] [address] from Last 3 Months or Most Recently Relevant to Health Maintenance Insurance [employer] MEDICARE SOLUTIONS [facility] MEDICARE Address: [address] [address] [place] [address] [facility] Advance Directives For more information, please contact: [phone] * Full Code (Latest Code Status on File) Date Activated Date Inactivated Comments 06/24/2022 11:13 PM 06/28/2022 12:08 AM Care Teams Medical Director Of Hospice Relationship Specialty [place] [address] [place] [id number] PCP - General 01/01/17
--- OUTSIDE RECORDS SUMMARY | 2024-08-22 08:10 | XMS_ITS ---
Author Organization [facility] Helena arnett (HIE interaction) Address [facility] [place] [address] [address] Care Team Providers Care Cath Lab Nurse Name Role Phone Unavailable Unavailable Unavailable Allergies, Adverse Reactions, Alerts Allergy Name Allergy Type Status Severity Reaction(s) Onset Date Inactive Date Treating Clinician Comments hydroCHLOROthia zide Allergy Active Unknown 2021-06 0 20:11: 25 Medications Ordered Medication Name Filled Medication Name Start Date Stop Date Current Medication? Ordering Clinician Indication Dosage Frequency Signature (SIG) Comments Components calcitriol 2- 04:58: 58 Yes [id number] Number of Repeats Allowed: Frequency: Three times a week Mircera 06-28 20:30: 42 Yes [id number] Number of Repeats Allowed: Frequency: SARA dosing, every two weeks loperamide hydrochlori de 2023-06 1- 16:03: 20 Yes [id number] Number of Repeats Allowed: Frequency: Every 4 hours as needed Venofer 2023-06 0- 05:00: 00 Yes [id number] Number of Repeats Allowed: Frequency: One time a weekDosesO rdered: Maintenanc e Dose 50 Milligram Route: Intravenou s calcitriol 2023-06 0- 17:47: 39 Yes [id number] Number of Repeats Allowed: Frequency: Three times a week Mircera 9- 17:24: 04 Yes [id number] Number of Repeats Allowed: Frequency: SARA dosing, every four weeks Ondansetron 2022-0615 16:48: 41 Yes Number of Repeats Allowed: Frequency: As needed NIFEdipine 6- 18:13: 36 Yes Number of Repeats Allowed: Frequency: One time a day ONS [facility] 5-09 16:08: 32 Yes [id number] Number of Repeats Allowed: Frequency: Every Dialysis Treatment Trulicity 10-10 17:53: 48 Yes Number of Repeats Allowed: Frequency: One time a week Omeprazole 10-10 17:52: 27 Yes Number of Repeats Allowed: Frequency: Two times a day Fleet Enema 10-10 17:51: 38 Yes Number of Repeats Allowed: Frequency: One time a day Ferrous Sulfate 10-10 17:48: 48 Yes Number of Repeats Allowed: Frequency: One time a day Ergocalcife rol 10-10 17:48: 16 Yes Number of Repeats Allowed: Frequency: Every Saturday Citroma 10-10 17:47: 21 Yes Number of Repeats Allowed: Frequency: As needed Carvedilol 10-10 17:46: 36 Yes Number of Repeats Allowed: Frequency: Two times a day Bisacodyl 10-10 17:46: 13 Yes Number of Repeats Allowed: Frequency: As needed Benzonatate 10-10 17:45: 35 Yes Number of Repeats Allowed: Frequency: As needed Alum & Mag Hydroxide-S imeth 10-10 17:44: 53 Yes Number of Repeats Allowed: Frequency: As needed Oxygen 10-05 20:55: 41 Yes [id number] Number of Repeats Allowed: Frequency: As needed ondansetron hydrochlori de 10-05 20:55: 35 Yes [id number] Number of Repeats Allowed: Frequency: Every 4 hours as needed Normal Saline Solution 0.9% NaCl 10-05 20:55: 27 Yes [id number] Number of Repeats Allowed: Frequency: As needed diphenhydra mine hydrochlori de 10-05 20:55: 13 Yes [id number] Number of Repeats Allowed: Frequency: Every 30 minutes as needed diphenhydra mine hydrochlori de 10-05 20:55: 04 Yes [id number] Number of Repeats Allowed: Frequency: Every 4 hours as needed clonidine 10-05 20:54: 54 Yes [id number] Number of Repeats Allowed: Frequency: Every 4 hours as needed Antacid Extra Strength 10-05 20:54: 43 Yes [id number] Number of Repeats Allowed: Frequency: Every 4 hours as needed acetaminoph en 10-05 20:54: 36 Yes [id number] Number of Repeats Allowed: Frequency: Every 4 hours as needed Problems This patient has no known problems. Procedures Procedure Date / Time Performed Performing Clinician Hope ce Details AV Fistula 2018-03-31 05:00:00 Access Surgeon ROSSI JIMÉNEZ MD ([id number]),[place], [place] Access Site Upper Arm (Left) Access Use Start Date 2018-05-12 06:00:0 0 DIALYSIS TREATMENT INFORMATION Conventional Hemodialysis Date Type Treatment Start Date Treatment End Date Pre-Treatment Vitals Post-Treatment Vitals Weight Gain BFR DFR Actual UF Dialysis Access August 21, 2024 In-Ce nter Hemod ialys is Treat ment 2024-08-21 T15:09:33. 000Z 2024-08-21 T18:00:34. 000Z BP Sitting (Pre-Dialysis) 166/95 mmHg BP Sitting (Post-D ialysis ) 162/ 54 mmHg Sitting Heart Rate Pre-Dialysis 75 BPM BP Standing (Post-Dialysis) 112/76 mmHg Temperature Pre-Dialysis 98.2 degF Sitting Heart Ra te Post-Dialysis 87 BPM Standing Heart Rate Post-Tamiko lysis 73 BPM Temperature Post-Dialysis 97 .8 degF August 19, 2024 In-Center Hemodialysis Treatment 4162-11-18S27:48:24.000Z 5652-32-53N15:01:24.000Z BP Sitting (Pre-Dialysis) 165/65 mmHg BP Sitting (Post-Dialysis) 157/54 mmHg Concurrent Access: falseAV Fistula Upper Arm (Left) Arterial Sitting Heart Rate Pre-Dialysis 75 BPM Sitting H eart Rate Post-Dialysis 80 BPM Temperature Pre-Dialysis 98 degF Temperature Post -Dialysis 98.2 degF August 17, 2024 In-Center Hemodialysis Treatment 1208-09-17A43:01:22.000Z 5877-26-30I86:03:23.000Z BP Sitting (Pre-Dialysis) 149/62 mmHg BP Sitting (Post-Dialysis) 146/64 mmHg Concurrent Access: falseAV Fistula Upper Arm (Left) Arterial Sitting Heart Rate Pre-Dialysis 74 BPM Sitting H eart Rate Post-Dialysis 80 BPM Temperature Pre-Dialysis 97.9 degF Temperature Post -Dialysis 97.5 degF August 14, 2024 In-Center Hemodialysis Treatment 4131-95-20L03:49:00.000Z 1385-91-88Z12:56:55.000Z BP Sitting (Pre-Dialysis) 141/55 mmHg BP Sitting (Post-Dialysis) 144/57 mmHg Concurrent Access: falseAV Fistula Upper Arm (Left) Arterial Sitting Heart Rate Pre-Dialysis 73 BPM Sitting H eart Rate Post-Dialysis 74 BPM Temperature Pre-Dialysis 97.8 degF August 12, 2024 In-Center Hemodialysis Treatment 9103-08-90R21:44:21.000Z 7816-48-25N33:44:21.000Z BP Sitting (Pre-Dialysis) 158/91 mmHg BP Sitting (Post-Dialysis) 174/63 mmHg Concurrent Access: falseAV Fistula Upper Arm (Left) Arterial Sitting Heart Rate Pre-Dialysis 80 BPM Sitting H eart Rate Post-Dialysis 79 BPM Temperature Pre-Dialysis 97.3 degF Temperature Post -Dialysis 97.8 degF August 10, 2024 In-Center Hemodialysis Treatment 6887-54-65T58:37:48.000Z 3772-36-23G73:05:49.000Z BP Sitting (Pre-Dialysis) 133/66 mmHg BP Sitting (Post-Dialysis) 152/66 mmHg Concurrent Access: falseAV Fistula Upper Arm (Left) Arterial Sitting Heart Rate Pre-Dialysis 78 BPM Sitting H eart Rate Post-Dialysis 77 BPM Temperature Pre-Dialysis 98 degF Temperature Post -Dialysis 97.5 degF August 07, 2024 In-Center Hemodialysis Treatment 3399-95-70W61:14:59.000Z 2309-44-91T55:08:59.000Z BP Sitting (Pre-Dialysis) 153/75 mmHg BP Sitting (Post-Dialysis) 164/67 mmHg Concurrent Access: falseAV Fistula Upper Arm (Left) Arterial Sitting Heart Rate Pre-Dialysis 75 BPM Sitting H eart Rate Post-Dialysis 75 BPM Temperature Pre-Dialysis 98 degF Temperature Post -Dialysis 97.6 degF August 05, 2024 In-Center Hemodialysis Treatment 0101-79-57B55:02:26.000Z 4780-25-69Y86:06:26.000Z BP Sitting (Pre-Dialysis) 163/70 mmHg BP Sitting (Post-Dialysis) 176/70 mmHg Concurrent Access: falseAV Fistula Upper Arm (Left) Arterial Sitting Heart Rate Pre-Dialysis 77 BPM Sitting H eart Rate Post-Dialysis 81 BPM Temperature Pre-Dialysis 97.8 degF Temperature Post -Dialysis 98 degF August 03, 2024 In-Center Hemodialysis Treatment 8335-24-19M41:12:53.000Z 0367-51-92Q89:00:53.000Z BP Sitting (Pre-Dialysis) 164/140 mmHg BP Sitting (Post-Dialysis) 170/73 mmHg Concurrent Access: falseAV Fistula Upper Arm (Left) Arterial Sitting Heart Rate Pre-Dialysis 53 BPM Sitting H eart Rate Post-Dialysis 78 BPM Temperature Pre-Dialysis 98.2 degF Temperature Post -Dialysis 98.7 degF July 31, 2024 In-Center Hemodialysis Treatment 1006-57-34X19:50:37.000Z 0522-26-51I95:51:37.000Z BP Sitting (Pre-Dialysis) 159/69 mmHg BP Sitting (Post-Dialysis) 162/69 mmHg Concurrent Access: falseAV Fistula Upper Arm (Left) Arterial Sitting Heart Rate Pre-Dialysis 75 BPM Sitting H eart Rate Post-Dialysis 76 BPM Temperature Pre-Dialysis 97.6 degF Temperature Post -Dialysis 97.4 degF July 29, 2024 In-Center Hemodialysis Treatment 6627-97-03H25:59:01.000Z 7712-33-25X14:06:02.000Z BP Sitting (Pre-Dialysis) 153/63 mmHg BP Sitting (Post-Dialysis) 149/62 mmHg Concurrent Access: falseAV Fistula Upper Arm (Left) Arterial Sitting Heart Rate Pre-Dialysis 80 BPM Sitting H eart Rate Post-Dialysis 81 BPM Temperature Pre-Dialysis 97.2 degF Temperature Post -Dialysis 97.2 degF July 27, 2024 In-Center Hemodialysis Treatment 4403-41-24G59:49:30.000Z 7506-70-07Q16:50:30.000Z BP Sitting (Pre-Dialysis) 150/65 mmHg BP Sitting (Post-Dialysis) 156/66 mmHg Concurrent Access: falseAV Fistula Upper Arm (Left) Arterial Sitting Heart Rate Pre-Dialysis 81 BPM Sitting H eart Rate Post-Dialysis 81 BPM Temperature Pre-Dialysis 97 degF Temperature Post -Dialysis 97.7 degF July 24, 2024 In-Center Hemodialysis Treatment 8584-81-49Z12:58:00.000Z 3739-32-64R48:58:21.000Z BP Sitting (Pre-Dialysis) 145/59 mmHg BP Sitting (Post-Dialysis) 128/56 mmHg Concurrent Access: falseAV Fistula Upper Arm (Left) Arterial Sitting Heart Rate Pre-Dialysis 75 BPM BP Standing (Post-Dialysis) 135/57 mmHg Temperature Pre-Dialysis 97.2 degF Sitting Heart Ra te Post-Dialysis 75 BPM Standing Heart Rate Post-Tamiko lysis 74 BPM Temperature Post-Dialysis 97 .8 degF July 22, 2024 In-Center Hemodialysis Treatment 8081-78-73F04:25:04.000Z 5369-59-75F04:28:04.000Z BP Sitting (Pre-Dialysis) 147/62 mmHg BP Sitting (Post-Dialysis) 152/67 mmHg Concurrent Access: falseAV Fistula Upper Arm (Left) Arterial Sitting Heart Rate Pre-Dialysis 81 BPM Sitting H eart Rate Post-Dialysis 78 BPM Temperature Pre-Dialysis 97.4 degF Temperature Post -Dialysis 98.2 degF July 20, 2024 In-Center Hemodialysis Treatment 1491-30-14H25:30:14.000Z 7071-08-45P60:31:15.000Z BP Sitting (Pre-Dialysis) 130/99 mmHg BP Sitting (Post-Dialysis) 150/81 mmHg Concurrent Access: falseAV Fistula Upper Arm (Left) Arterial Sitting Heart Rate Pre-Dialysis 62 BPM Sitting H eart Rate Post-Dialysis 82 BPM Temperature Pre-Dialysis 97.2 degF Temperature Post -Dialysis 98 degF July 17, 2024 In-Center Hemodialysis Treatment 8391-89-28J89:51:40.000Z 6180-98-98P61:52:40.000Z BP Sitting (Pre-Dialysis) 166/70 mmHg BP Sitting (Post-Dialysis) 147/84 mmHg Concurrent Access: falseAV Fistula Upper Arm (Left) Arterial Sitting Heart Rate Pre-Dialysis 80 BPM Sitting H eart Rate Post-Dialysis 69 BPM Temperature Pre-Dialysis 98 degF Temperature Post -Dialysis 96.6 degF July 15, 2024 In-Center Hemodialysis Treatment 3659-96-23K96:31:55.000Z 4381-28-76C13:34:55.000Z BP Sitting (Pre-Dialysis) 145/60 mmHg BP Sitting (Post-Dialysis) 146/65 mmHg Concurrent Access: falseAV Fistula Upper Arm (Left) Arterial Sitting Heart Rate Pre-Dialysis 83 BPM Sitting H eart Rate Post-Dialysis 83 BPM Temperature Pre-Dialysis 98.2 degF Temperature Post -Dialysis 98 degF July 13, 2024 In-Center Hemodialysis Treatment 0840-94-52G96:43:55.000Z 8197-65-93N67:43:56.000Z BP Sitting (Pre-Dialysis) 151/72 mmHg BP Sitting (Post-Dialysis) 153/68 mmHg Concurrent Access: falseAV Fistula Upper Arm (Left) Arterial Sitting Heart Rate Pre-Dialysis 82 BPM Sitting H eart Rate Post-Dialysis 82 BPM Temperature Pre-Dialysis 97.8 degF Temperature Post -Dialysis 98.2 degF July 10, 2024 In-Center Hemodialysis Treatment 3868-72-64Q44:40:39.000Z 7989-93-99S26:41:39.000Z BP Sitting (Pre-Dialysis) 140/104 mmHg BP Sitting (Post-Dialysis) 150/55 mmHg Concurrent Access: falseAV Fistula Upper Arm (Left) Arterial Sitting Heart Rate Pre-Dialysis 55 BPM Sitting H eart Rate Post-Dialysis 84 BPM Temperature Pre-Dialysis 97.8 degF Temperature Post -Dialysis 98 degF July 08, 2024 In-Center Hemodialysis Treatment 9899-87-28N85:56:05.000Z 5883-33-35G09:57:06.000Z BP Sitting (Pre-Dialysis) 157/75 mmHg BP Sitting (Post-Dialysis) 156/73 mmHg Concurrent Access: falseAV Fistula Upper Arm (Left) Arterial Sitting Heart Rate Pre-Dialysis 87 BPM Sitting H eart Rate Post-Dialysis 85 BPM Temperature Pre-Dialysis 97.5 degF Temperature Post -Dialysis 97.7 degF July 06, 2024 In-Center Hemodialysis Treatment 8453-47-30W35:15:33.000Z 6140-01-36N52:15:33.000Z BP Sitting (Pre-Dialysis) 141/67 mmHg BP Sitting (Post-Dialysis) 152/69 mmHg Concurrent Access: falseAV Fistula Upper Arm (Left) Arterial Sitting Heart Rate Pre-Dialysis 87 BPM BP Standing (Post-Dialysis) 150/71 mmHg Temperature Pre-Dialysis 97.2 degF Sitting Heart Ra te Post-Dialysis 85 BPM Standing Heart Rate Post-Tamiko lysis 85 BPM Temperature Post-Dialysis 97 .9 degF July 03, 2024 In-Center Hemodialysis Treatment 1352-09-89T99:33:43.000Z 9480-00-06J19:37:43.000Z BP Sitting (Pre-Dialysis) 143/66 mmHg BP Sitting (Post-Dialysis) 140/62 mmHg Concurrent Access: falseAV Fistula Upper Arm (Left) Arterial Sitting Heart Rate Pre-Dialysis 82 BPM Sitting H eart Rate Post-Dialysis 79 BPM Temperature Pre-Dialysis 97.4 degF Temperature Post -Dialysis 97.2 degF July 01, 2024 In-Center Hemodialysis Treatment 2640-85-64F57:10:10.000Z 3935-88-08C10:12:09.000Z BP Sitting (Pre-Dialysis) 144/66 mmHg BP Sitting (Post-Dialysis) 146/62 mmHg Concurrent Access: falseAV Fistula Upper Arm (Left) Arterial Sitting Heart Rate Pre-Dialysis 85 BPM Sitting H eart Rate Post-Dialysis 83 BPM Temperature Pre-Dialysis 97.8 degF Temperature Post -Dialysis 98 degF June 29, 2024 In-Center Hemodialysis Treatment 6218-10-82L19:16:37.000Z 5332-80-03I44:16:36.000Z BP Sitting (Pre-Dialysis) 136/62 mmHg BP Sitting (Post-Dialysis) 120/59 mmHg Concurrent Access: falseAV Fistula Upper Arm (Left) Arterial Sitting Heart Rate Pre-Dialysis 89 BPM Sitting H eart Rate Post-Dialysis 86 BPM Temperature Pre-Dialysis 97.5 degF Temperature Post -Dialysis 97.8 degF June 26, 2024 In-Center Hemodialysis Treatment 2333-54-11G58:10:00.000Z 1994-80-85E74:02:04.000Z BP Sitting (Pre-Dialysis) 99/69 mmHg BP Sitting (Post-Dialysis) 140/55 mmHg Concurrent Access: falseAV Fistula Upper Arm (Left) Arterial Sitting Heart Rate Pre-Dialysis 74 BPM Sitting H eart Rate Post-Dialysis 80 BPM Temperature Pre-Dialysis 97.3 degF Temperature Post -Dialysis 97.3 degF June 24, 2024 In-Center Hemodialysis Treatment 7781-24-31I97:46:23.000Z 2074-57-23B56:50:24.000Z BP Sitting (Pre-Dialysis) 141/61 mmHg BP Sitting (Post-Dialysis) 150/60 mmHg Concurrent Access: falseAV Fistula Upper Arm (Left) Arterial Sitting Heart Rate Pre-Dialysis 75 BPM Sitting H eart Rate Post-Dialysis 76 BPM Temperature Pre-Dialysis 97.7 degF Temperature Post -Dialysis 97.8 degF June 22, 2024 In-Center Hemodialysis Treatment 6029-28-75G93:57:50.000Z 3551-35-85N51:59:50.000Z BP Sitting (Pre-Dialysis) 134/64 mmHg BP Sitting (Post-Dialysis) 142/64 mmHg Concurrent Access: falseAV Fistula Upper Arm (Left) Arterial Sitting Heart Rate Pre-Dialysis 72 BPM Sitting H eart Rate Post-Dialysis 75 BPM Temperature Pre-Dialysis 98.2 degF Temperature Post -Dialysis 97.8 degF June 17, 2024 In-Center Hemodialysis Treatment 6787-22-45X38:43:35.000Z 9355-80-22H57:45:35.000Z BP Sitting (Pre-Dialysis) 141/62 mmHg BP Sitting (Post-Dialysis) 117/68 mmHg Concurrent Access: falseAV Fistula Upper Arm (Left) Arterial Sitting Heart Rate Pre-Dialysis 74 BPM Sitting H eart Rate Post-Dialysis 73 BPM Temperature Pre-Dialysis 97.8 degF Temperature Post -Dialysis 97.3 degF June 12, 2024 In-Center Hemodialysis Treatment 7663-65-85Q02:08:13.000Z 3803-07-68L82:09:13.000Z BP Sitting (Pre-Dialysis) 147/59 mmHg BP Sitting (Post-Dialysis) 152/63 mmHg Concurrent Access: falseAV Fistula Upper Arm (Left) Arterial Sitting Heart Rate Pre-Dialysis 67 BPM Sitting H eart Rate Post-Dialysis 70 BPM Temperature Pre-Dialysis 97.5 degF Temperature Post -Dialysis 97.8 degF June 09, 2024 In-Center Hemodialysis Treatment 4074-33-98U56:11:56.000Z 4784-82-24J84:01:56.000Z BP Sitting (Pre-Dialysis) 150/61 mmHg BP Sitting (Post-Dialysis) 152/71 mmHg Concurrent Access: falseAV Fistula Upper Arm (Left) Arterial Sitting Heart Rate Pre-Dialysis 74 BPM Sitting H eart Rate Post-Dialysis 74 BPM Temperature Pre-Dialysis 97 degF Temperature Post -Dialysis 97.4 degF June 07, 2024 In-Center Hemodialysis Treatment 8307-36-43W39:48:23.000Z 2881-69-00G22:48:23.000Z BP Sitting (Pre-Dialysis) 130/60 mmHg BP Sitting (Post-Dialysis) 128/51 mmHg Concurrent Access: falseAV Fistula Upper Arm (Left) Arterial Sitting Heart Rate Pre-Dialysis 72 BPM Sitting H eart Rate Post-Dialysis 70 BPM Temperature Pre-Dialysis 97.6 degF Temperature Post -Dialysis 97.6 degF June 05, 2024 In-Center Hemodialysis Treatment 8068-59-58V83:57:50.000Z 7089-95-55R80:56:50.000Z BP Sitting (Pre-Dialysis) 130/73 mmHg BP Sitting (Post-Dialysis) 180/67 mmHg Concurrent Access: falseAV Fistula Upper Arm (Left) Arterial Sitting Heart Rate Pre-Dialysis 77 BPM Sitting H eart Rate Post-Dialysis 72 BPM Temperature Pre-Dialysis 97 degF Temperature Post -Dialysis 97.2 degF May 31, 2024 In-Center Hemodialysis Treatment 1684-05-07B58:12:44.000Z 0362-87-52E65:09:43.000Z BP Sitting (Pre-Dialysis) 123/60 mmHg BP Sitting (Post-Dialysis) 127/57 mmHg Concurrent Access: falseAV Fistula Upper Arm (Left) Arterial Sitting Heart Rate Pre-Dialysis 80 BPM Sitting H eart Rate Post-Dialysis 77 BPM Temperature Pre-Dialysis 97.6 degF Temperature Post -Dialysis 97.5 degF May 27, 2024 In-Center Hemodialysis Treatment 3331-17-67A00:46:00.000Z 9425-55-04C40:51:54.000Z BP Sitting (Pre-Dialysis) 106/81 mmHg BP Sitting (Post-Dialysis) 26/54 mmHg Concurrent Access: falseAV Fistula Upper Arm (Left) Arterial Sitting Heart Rate Pre-Dialysis 78 BPM Sitting H eart Rate Post-Dialysis 77 BPM Temperature Pre-Dialysis 97.3 degF Temperature Post -Dialysis 97.5 degF May 25, 2024 In-Center Hemodialysis Treatment 7399-77-38A76:53:22.000Z 5236-26-64P07:56:22.000Z BP Sitting (Pre-Dialysis) 131/62 mmHg BP Sitting (Post-Dialysis) 134/58 mmHg Concurrent Access: falseAV Fistula Upper Arm (Left) Arterial Sitting Heart Rate Pre-Dialysis 77 BPM Sitting H eart Rate Post-Dialysis 82 BPM Temperature Pre-Dialysis 97.8 degF Temperature Post -Dialysis 97.1 degF May 22, 2024 In-Center Hemodialysis Treatment 8894-93-76F42:16:32.000Z 3198-38-95L94:07:32.000Z BP Sitting (Pre-Dialysis) 151/76 mmHg BP Sitting (Post-Dialysis) 99/58 mmHg Concurrent Access: falseAV Fistula Upper Arm (Left) Arterial Sitting Heart Rate Pre-Dialysis 74 BPM Sitting H eart Rate Post-Dialysis 72 BPM Temperature Pre-Dialysis 97.8 degF Temperature Post -Dialysis 97.3 degF May 20, 2024 In-Center Hemodialysis Treatment 4042-59-00V68:03:59.000Z 6934-97-43M70:10:59.000Z BP Sitting (Pre-Dialysis) 150/67 mmHg BP Sitting (Post-Dialysis) 130/52 mmHg Concurrent Access: falseAV Fistula Upper Arm (Left) Arterial Sitting Heart Rate Pre-Dialysis 74 BPM Sitting H eart Rate Post-Dialysis 69 BPM Temperature Pre-Dialysis 97.6 degF Temperature Post -Dialysis 97.6 degF May 18, 2024 In-Center Hemodialysis Treatment 0760-57-60K74:59:26.000Z 1965-74-27A93:59:26.000Z BP Sitting (Pre-Dialysis) 143/49 mmHg BP Sitting (Post-Dialysis) 136/52 mmHg Concurrent Access: falseAV Fistula Upper Arm (Left) Arterial Sitting Heart Rate Pre-Dialysis 71 BPM Sitting H eart Rate Post-Dialysis 69 BPM Temperature Pre-Dialysis 97.4 degF Temperature Post -Dialysis 97.6 degF May 15, 2024 In-Center Hemodialysis Treatment 6188-54-76Q02:03:04.000Z 7244-11-34L07:18:04.000Z BP Sitting (Pre-Dialysis) 104/89 mmHg BP Sitting (Post-Dialysis) 150/67 mmHg Concurrent Access: falseAV Fistula Upper Arm (Left) Arterial Sitting Heart Rate Pre-Dialysis 77 BPM Sitting H eart Rate Post-Dialysis 75 BPM Temperature Pre-Dialysis 97.9 degF Temperature Post -Dialysis 97.7 degF May 13, 2024 In-Center Hemodialysis Treatment 8546-92-42L72:54:58.000Z 1475-73-50H87:57:58.000Z BP Sitting (Pre-Dialysis) 126/58 mmHg BP Sitting (Post-Dialysis) 139/59 mmHg Concurrent Access: falseAV Fistula Upper Arm (Left) Arterial Sitting Heart Rate Pre-Dialysis 75 BPM Sitting H eart Rate Post-Dialysis 77 BPM Temperature Pre-Dialysis 97.8 degF Temperature Post -Dialysis 97.8 degF May 11, 2024 In-Center Hemodialysis Treatment 9718-53-32I76:44:52.000Z 6949-99-40O39:44:52.000Z BP Sitting (Pre-Dialysis) 155/64 mmHg BP Sitting (Post-Dialysis) 148/115 mmHg Concurrent Access: falseAV Fistula Upper Arm (Left) Arterial Sitting Heart Rate Pre-Dialysis 75 BPM Sitting H eart Rate Post-Dialysis 84 BPM Temperature Pre-Dialysis 97.2 degF Temperature Post -Dialysis 97.2 degF May 08, 2024 In-Center Hemodialysis Treatment 6657-38-08H84:37:44.000Z 8512-35-11O26:34:43.000Z BP Sitting (Pre-Dialysis) 140/62 mmHg BP Sitting (Post-Dialysis) 146/65 mmHg Concurrent Access: falseAV Fistula Upper Arm (Left) Arterial Sitting Heart Rate Pre-Dialysis 72 BPM Sitting H eart Rate Post-Dialysis 77 BPM Temperature Pre-Dialysis 97.8 degF Temperature Post -Dialysis 97.8 degF May 05, 2024 In-Center Hemodialysis Treatment 9476-08-32F06:50:00.000Z 3221-00-52T50:53:34.000Z BP Sitting (Pre-Dialysis) 124/45 mmHg BP Sitting (Post-Dialysis) 106/44 mmHg Concurrent Access: falseAV Fistula Upper Arm (Left) Arterial Sitting Heart Rate Pre-Dialysis 76 BPM Sitting H eart Rate Post-Dialysis 60 BPM Temperature Pre-Dialysis 97.4 degF Temperature Post -Dialysis 97.4 degF May 01, 2024 In-Center Hemodialysis Treatment 3883-20-81G48:51:22.000Z 7326-18-74R41:53:22.000Z BP Sitting (Pre-Dialysis) 140/64 mmHg BP Sitting (Post-Dialysis) 148/60 mmHg Concurrent Access: falseAV Fistula Upper Arm (Left) Arterial Sitting Heart Rate Pre-Dialysis 77 BPM Sitting H eart Rate Post-Dialysis 76 BPM Temperature Pre-Dialysis 97.8 degF Temperature Post -Dialysis 97.8 degF April 29, 2024 In-Center Hemodialysis Treatment 2592-56-99Y27:40:00.000Z 6062-10-31V50:39:17.000Z BP Sitting (Pre-Dialysis) 127/80 mmHg BP Sitting (Post-Dialysis) 127/55 mmHg Concurrent Access: falseAV Fistula Upper Arm (Left) Arterial Sitting Heart Rate Pre-Dialysis 75 BPM Sitting H eart Rate Post-Dialysis 76 BPM Temperature Pre-Dialysis 98.1 degF Temperature Post -Dialysis 97.5 degF April 27, 2024 In-Center Hemodialysis Treatment 6159-75-24T76:45:13.000Z 2839-82-28I37:46:13.000Z BP Sitting (Pre-Dialysis) 131/64 mmHg BP Sitting (Post-Dialysis) 132/54 mmHg Concurrent Access: falseAV Fistula Upper Arm (Left) Arterial Sitting Heart Rate Pre-Dialysis 77 BPM Sitting H eart Rate Post-Dialysis 77 BPM Temperature Pre-Dialysis 97.5 degF Temperature Post -Dialysis 97.6 degF April 24, 2024 In-Center Hemodialysis Treatment 1165-09-24Y55:03:00.000Z 8434-67-28Z22:08:13.000Z BP Sitting (Pre-Dialysis) 143/53 mmHg BP Sitting (Post-Dialysis) 141/65 mmHg Concurrent Access: falseAV Fistula Upper Arm (Left) Arterial Sitting Heart Rate Pre-Dialysis 79 BPM Sitting H eart Rate Post-Dialysis 77 BPM Temperature Pre-Dialysis 97.5 degF Temperature Post -Dialysis 97.7 degF April 22, 2024 In-Center Hemodialysis Treatment 3739-37-05Y25:03:12.000Z 0594-03-68Z18:07:13.000Z BP Sitting (Pre-Dialysis) 132/64 mmHg BP Sitting (Post-Dialysis) 135/68 mmHg Concurrent Access: falseAV Fistula Upper Arm (Left) Arterial Sitting Heart Rate Pre-Dialysis 84 BPM Sitting H eart Rate Post-Dialysis 81 BPM Temperature Pre-Dialysis 97.8 degF April 20, 2024 In-Center Hemodialysis Treatment 5909-79-48L68:05:12.000Z 0946-16-17D02:08:12.000Z BP Sitting (Pre-Dialysis) 141/57 mmHg BP Sitting (Post-Dialysis) 121/50 mmHg Concurrent Access: falseAV Fistula Upper Arm (Left) Arterial Sitting Heart Rate Pre-Dialysis 80 BPM Sitting H eart Rate Post-Dialysis 80 BPM Temperature Pre-Dialysis 97.6 degF Temperature Post -Dialysis 97.5 degF April 17, 2024 In-Center Hemodialysis Treatment 0492-77-24N37:53:00.000Z 4396-14-12K09:56:15.000Z BP Sitting (Pre-Dialysis) 119/65 mmHg BP Sitting (Post-Dialysis) 124/60 mmHg Concurrent Access: falseAV Fistula Upper Arm (Left) Arterial Sitting Heart Rate Pre-Dialysis 87 BPM Sitting H eart Rate Post-Dialysis 84 BPM Temperature Pre-Dialysis 97.5 degF Temperature Post -Dialysis 97.1 degF April 15, 2024 In-Center Hemodialysis Treatment 3605-08-67B98:46:00.000Z 7425-69-42F89:00:12.000Z BP Sitting (Pre-Dialysis) 114/96 mmHg BP Sitting (Post-Dialysis) 104/52 mmHg Concurrent Access: falseAV Fistula Upper Arm (Left) Arterial Sitting Heart Rate Pre-Dialysis 83 BPM Sitting H eart Rate Post-Dialysis 78 BPM Temperature Pre-Dialysis 97.2 degF Temperature Post -Dialysis 98 degF April 13, 2024 In-Center Hemodialysis Treatment 6220-11-86T34:55:12.000Z 9175-14-14Y30:56:12.000Z BP Sitting (Pre-Dialysis) 117/61 mmHg BP Sitting (Post-Dialysis) 122/55 mmHg Concurrent Access: falseAV Fistula Upper Arm (Left) Arterial Sitting Heart Rate Pre-Dialysis 79 BPM Sitting H eart Rate Post-Dialysis 85 BPM Temperature Pre-Dialysis 97.5 degF Temperature Post -Dialysis 97.6 degF April 10, 2024 In-Center Hemodialysis Treatment [id number]:56:26.000Z 4246-38-32U42:01:26.000Z BP Sitting (Pre-Dialysis) 144/78 mmHg BP Sitting (Post-Dialysis) 145/72 mmHg Concurrent Access: falseAV Fistula Upper Arm (Left) Arterial Sitting Heart Rate Pre-Dialysis 83 BPM Sitting H eart Rate Post-Dialysis 87 BPM Temperature Pre-Dialysis 97.6 degF Temperature Post -Dialysis 97.5 degF April 08, 2024 In-Center Hemodialysis Treatment 7326-75-14G19:41:26.000Z 2778-14-12P42:40:26.000Z BP Sitting (Pre-Dialysis) 112/74 mmHg BP Sitting (Post-Dialysis) 115/54 mmHg Concurrent Access: falseAV Fistula Upper Arm (Left) Arterial Sitting Heart Rate Pre-Dialysis 56 BPM Sitting H eart Rate Post-Dialysis 71 BPM Temperature Pre-Dialysis 97.5 degF Temperature Post -Dialysis 97.5 degF April 06, 2024 In-Center Hemodialysis Treatment 2994-25-21Z95:48:00.000Z 0585-09-70Q20:50:06.000Z BP Sitting (Pre-Dialysis) 140/56 mmHg BP Sitting (Post-Dialysis) 136/51 mmHg Concurrent Access: falseAV Fistula Upper Arm (Left) Arterial Sitting Heart Rate Pre-Dialysis 70 BPM Sitting H eart Rate Post-Dialysis 71 BPM Temperature Pre-Dialysis 97.2 degF Temperature Post -Dialysis 98.2 degF April 03, 2024 In-Center Hemodialysis Treatment 4351-41-80M04:49:26.000Z 8657-64-27F21:50:26.000Z BP Sitting (Pre-Dialysis) 138/67 mmHg BP Sitting (Post-Dialysis) 134/87 mmHg Concurrent Access: falseAV Fistula Upper Arm (Left) Arterial Sitting Heart Rate Pre-Dialysis 74 BPM Sitting H eart Rate Post-Dialysis 81 BPM Temperature Pre-Dialysis 97.8 degF Temperature Post -Dialysis 97.2 degF April 01, 2024 In-Center Hemodialysis Treatment 8046-25-69I96:48:26.000Z 4519-19-36N09:48:26.000Z BP Sitting (Pre-Dialysis) 139/64 mmHg BP Sitting (Post-Dialysis) 129/63 mmHg Concurrent Access: falseAV Fistula Upper Arm (Left) Arterial Sitting Heart Rate Pre-Dialysis 73 BPM Sitting H eart Rate Post-Dialysis 74 BPM Temperature Pre-Dialysis 97.8 degF Temperature Post -Dialysis 97.5 degF March 30, 2024 In-Center Hemodialysis Treatment 3721-42-09U14:56:25.000Z 1042-04-38K54:57:26.000Z BP Sitting (Pre-Dialysis) 127/66 mmHg BP Sitting (Post-Dialysis) 133/55 mmHg Concurrent Access: falseAV Fistula Upper Arm (Left) Arterial Sitting Heart Rate Pre-Dialysis 78 BPM Sitting H eart Rate Post-Dialysis 73 BPM Temperature Pre-Dialysis 98 degF Temperature Post -Dialysis 97.5 degF March 27, 2024 In-Center Hemodialysis Treatment 3002-59-30V71:47:08.000Z 2348-61-09H91:48:08.000Z BP Sitting (Pre-Dialysis) 123/60 mmHg BP Sitting (Post-Dialysis) 135/52 mmHg Concurrent Access: falseAV Fistula Upper Arm (Left) Arterial Sitting Heart Rate Pre-Dialysis 76 BPM Sitting H eart Rate Post-Dialysis 81 BPM Temperature Pre-Dialysis 97.5 degF Temperature Post -Dialysis 97.5 degF March 25, 2024 In-Center Hemodialysis Treatment 8676-65-31U57:22:09.000Z 9504-57-68Z83:22:09.000Z BP Sitting (Pre-Dialysis) 143/64 mmHg BP Sitting (Post-Dialysis) 135/54 mmHg Concurrent Access: falseAV Fistula Upper Arm (Left) Arterial Sitting Heart Rate Pre-Dialysis 74 BPM Sitting H eart Rate Post-Dialysis 75 BPM Temperature Pre-Dialysis 97.5 degF Temperature Post -Dialysis 97.5 degF March 23, 2024 In-Center Hemodialysis Treatment 9696-22-89U08:58:00.000Z 7735-48-57S15:01:09.000Z BP Sitting (Pre-Dialysis) 141/57 mmHg BP Sitting (Post-Dialysis) 112/52 mmHg Concurrent Access: falseAV Fistula Upper Arm (Left) Arterial Sitting Heart Rate Pre-Dialysis 72 BPM Sitting H eart Rate Post-Dialysis 77 BPM Temperature Pre-Dialysis 97.2 degF Temperature Post -Dialysis 97.2 degF March 20, 2024 In-Center Hemodialysis Treatment 3254-04-16R03:31:07.000Z 0488-53-45V40:01:07.000Z BP Sitting (Pre-Dialysis) 125/44 mmHg BP Sitting (Post-Dialysis) 116/53 mmHg Concurrent Access: falseAV Fistula Upper Arm (Left) Arterial Sitting Heart Rate Pre-Dialysis 74 BPM Sitting H eart Rate Post-Dialysis 72 BPM Temperature Pre-Dialysis 97.5 degF Temperature Post -Dialysis 98.2 degF March 18, 2024 In-Center Hemodialysis Treatment 9075-74-30O41:13:00.000Z 2668-35-46I35:16:41.000Z BP Sitting (Pre-Dialysis) 131/51 mmHg BP Sitting (Post-Dialysis) 142/55 mmHg Concurrent Access: falseAV Fistula Upper Arm (Left) Arterial Sitting Heart Rate Pre-Dialysis 76 BPM Sitting H eart Rate Post-Dialysis 80 BPM Temperature Pre-Dialysis 97.2 degF Temperature Post -Dialysis 97.1 degF 2024 In-Center Hemodialysis Treatment 9993-86-57A13:55:00.000Z 8001-44-04V33:56:01.000Z BP Sitting (Pre-Dialysis) 134/44 mmHg BP Sitting (Post-Dialysis) 134/57 mmHg Concurrent Access: falseAV Fistula Upper Arm (Left) Arterial Sitting Heart Rate Pre-Dialysis 78 BPM Sitting H eart Rate Post-Dialysis 76 BPM Temperature Pre-Dialysis 97.8 degF Temperature Post -Dialysis 97.8 degF March 13, 2024 In-Center Hemodialysis Treatment 7546-77-02Z94:55:09.000Z 4263-70-38V77:58:09.000Z BP Sitting (Pre-Dialysis) 124/81 mmHg BP Sitting (Post-Dialysis) 138/61 mmHg Concurrent Access: falseAV Fistula Upper Arm (Left) Arterial Sitting Heart Rate Pre-Dialysis 71 BPM Sitting H eart Rate Post-Dialysis 72 BPM Temperature Pre-Dialysis 97.8 degF Temperature Post -Dialysis 97.8 degF March 11, 2024 In-Center Hemodialysis Treatment 9589-89-67T83:59:09.000Z 8072-60-11H60:58:09.000Z BP Sitting (Pre-Dialysis) 152/82 mmHg BP Sitting (Post-Dialysis) 142/54 mmHg Concurrent Access: falseAV Fistula Upper Arm (Left) Arterial Sitting Heart Rate Pre-Dialysis 68 BPM Sitting H eart Rate Post-Dialysis 71 BPM Temperature Pre-Dialysis 97.8 degF Temperature Post -Dialysis 97.8 degF March 09, 2024 In-Center Hemodialysis Treatment 7323-64-96U11:04:00.000Z 2818-32-96T16:08:09.000Z BP Sitting (Pre-Dialysis) 117/85 mmHg BP Sitting (Post-Dialysis) 118/57 mmHg Concurrent Access: falseAV Fistula Upper Arm (Left) Arterial Sitting Heart Rate Pre-Dialysis 73 BPM Sitting H eart Rate Post-Dialysis 70 BPM Temperature Pre-Dialysis 97.2 degF Temperature Post -Dialysis 98.2 degF March 06, 2024 In-Center Hemodialysis Treatment 5716-89-45L31:54:11.000Z 0604-42-61F98:55:11.000Z BP Sitting (Pre-Dialysis) 125/54 mmHg BP Sitting (Post-Dialysis) 115/57 mmHg Concurrent Access: falseAV Fistula Upper Arm (Left) Arterial Sitting Heart Rate Pre-Dialysis 70 BPM Sitting H eart Rate Post-Dialysis 70 BPM Temperature Pre-Dialysis 97.8 degF Temperature Post -Dialysis 98.2 degF March 04, 2024 In-Center Hemodialysis Treatment 2391-63-82C18:42:00.000Z 2548-11-38T77:44:11.000Z BP Sitting (Pre-Dialysis) 111/68 mmHg BP Sitting (Post-Dialysis) 132/59 mmHg Concurrent Access: falseAV Fistula Upper Arm (Left) Arterial Sitting Heart Rate Pre-Dialysis 73 BPM Sitting H eart Rate Post-Dialysis 75 BPM Temperature Pre-Dialysis 97.5 degF Temperature Post -Dialysis 97.9 degF March 02, 2024 In-Center Hemodialysis Treatment 8297-44-15R23:01:00.000Z 8450-53-35E70:08:11.000Z BP Sitting (Pre-Dialysis) 147/62 mmHg BP Sitting (Post-Dialysis) 128/53 mmHg Concurrent Access: falseAV Fistula Upper Arm (Left) Arterial Sitting Heart Rate Pre-Dialysis 72 BPM Sitting H eart Rate Post-Dialysis 69 BPM Temperature Pre-Dialysis 97 degF Temperature Post -Dialysis 97.5 degF February 28, 2024 In-Center Hemodialysis Treatment 0127-44-36D30:07:00.000Z 5811-07-28I05:13:06.000Z BP Sitting (Pre-Dialysis) 158/64 mmHg BP Sitting (Post-Dialysis) 158/68 mmHg Concurrent Access: falseAV Fistula Upper Arm (Left) Arterial Sitting Heart Rate Pre-Dialysis 76 BPM Sitting H eart Rate Post-Dialysis 77 BPM Temperature Pre-Dialysis 98.8 degF Temperature Post -Dialysis 97.8 degF February 26, 2024 In-Center Hemodialysis Treatment 2733-30-54P27:59:11.000Z 0744-92-39O42:58:11.000Z BP Sitting (Pre-Dialysis) 149/60 mmHg BP Sitting (Post-Dialysis) 141/66 mmHg Concurrent Access: falseAV Fistula Upper Arm (Left) Arterial Sitting Heart Rate Pre-Dialysis 74 BPM Sitting H eart Rate Post-Dialysis 69 BPM Temperature Pre-Dialysis 97.8 degF Temperature Post -Dialysis 97.5 degF February 24, 2024 In-Center Hemodialysis Treatment 0495-32-78L86:23:07.000Z 3289-06-96E77:26:07.000Z BP Sitting (Pre-Dialysis) 164/66 mmHg BP Sitting (Post-Dialysis) 168/64 mmHg Concurrent Access: falseAV Fistula Upper Arm (Left) Arterial Sitting Heart Rate Pre-Dialysis 78 BPM Sitting H eart Rate Post-Dialysis 78 BPM Temperature Pre-Dialysis 97.8 degF Temperature Post -Dialysis 97.9 degF February 21, 2024 In-Center Hemodialysis Treatment 6604-93-59K96:53:44.000Z 9440-99-09W56:53:44.000Z BP Sitting (Pre-Dialysis) 135/81 mmHg BP Sitting (Post-Dialysis) 133/62 mmHg Concurrent Access: falseAV Fistula Upper Arm (Left) Arterial Sitting Heart Rate Pre-Dialysis 61 BPM Sitting H eart Rate Post-Dialysis 79 BPM Temperature Pre-Dialysis 98 degF Temperature Post -Dialysis 97.5 degF February 19, 2024 In-Center Hemodialysis Treatment 2819-66-77K44:57:00.000Z 1207-41-40L13:11:44.000Z BP Sitting (Pre-Dialysis) 153/68 mmHg BP Sitting (Post-Dialysis) 145/62 mmHg Concurrent Access: falseAV Fistula Upper Arm (Left) Arterial Sitting Heart Rate Pre-Dialysis 74 BPM Sitting H eart Rate Post-Dialysis 87 BPM Temperature Pre-Dialysis 97.5 degF Temperature Post -Dialysis 97.5 degF February 17, 2024 In-Center Hemodialysis Treatment 9961-97-93G90:12:00.000Z 2032-99-54W73:03:44.000Z BP Sitting (Pre-Dialysis) 129/66 mmHg BP Sitting (Post-Dialysis) 148/58 mmHg Concurrent Access: falseAV Fistula Upper Arm (Left) Arterial Sitting Heart Rate Pre-Dialysis 79 BPM Sitting H eart Rate Post-Dialysis 79 BPM Temperature Pre-Dialysis 97.6 degF Temperature Post -Dialysis 97.2 degF February 14, 2024 In-Center Hemodialysis Treatment 4287-41-03A00:59:00.000Z 8969-93-52I14:03:06.000Z BP Sitting (Pre-Dialysis) 124/71 mmHg BP Sitting (Post-Dialysis) 131/75 mmHg Concurrent Access: falseAV Fistula Upper Arm (Left) Arterial Sitting Heart Rate Pre-Dialysis 63 BPM Sitting H eart Rate Post-Dialysis 63 BPM Temperature Pre-Dialysis 97.2 degF Temperature Post -Dialysis 97.9 degF February 12, 2024 In-Center Hemodialysis Treatment 4078-90-44C59:32:12.000Z 5740-97-00V10:09:12.000Z BP Sitting (Pre-Dialysis) 149/60 mmHg BP Sitting (Post-Dialysis) 131/55 mmHg Concurrent Access: falseAV Fistula Upper Arm (Left) Arterial Sitting Heart Rate Pre-Dialysis 69 BPM Sitting H eart Rate Post-Dialysis 71 BPM Temperature Pre-Dialysis 97.8 degF Temperature Post -Dialysis 97.5 degF February 07, 2024 In-Center Hemodialysis Treatment 6470-07-19V97:12:00.000Z 4208-02-26C94:17:11.000Z BP Sitting (Pre-Dialysis) 124/52 mmHg BP Sitting (Post-Dialysis) 109/46 mmHg Concurrent Access: falseAV Fistula Upper Arm (Left) Arterial Sitting Heart Rate Pre-Dialysis 69 BPM Sitting H eart Rate Post-Dialysis 70 BPM Temperature Pre-Dialysis 97.9 degF Temperature Post -Dialysis 98.2 degF February 05, 2024 In-Center Hemodialysis Treatment 1149-35-11P82:07:29.000Z 0475-23-59P67:14:34.000Z BP Sitting (Pre-Dialysis) 152/65 mmHg BP Sitting (Post-Dialysis) 151/71 mmHg Concurrent Access: falseAV Fistula Upper Arm (Left) Arterial Sitting Heart Rate Pre-Dialysis 69 BPM Sitting H eart Rate Post-Dialysis 71 BPM Temperature Pre-Dialysis 97.8 degF Temperature Post -Dialysis 97 degF February 03, 2024 In-Center Hemodialysis Treatment 7290-53-61L68:08:54.000Z 4681-76-97G66:08:53.000Z BP Sitting (Pre-Dialysis) 133/56 mmHg BP Sitting (Post-Dialysis) 133/53 mmHg Concurrent Access: falseAV Fistula Upper Arm (Left) Arterial Sitting Heart Rate Pre-Dialysis 70 BPM Sitting H eart Rate Post-Dialysis 70 BPM Temperature Pre-Dialysis 97.8 degF Temperature Post -Dialysis 97.8 degF January 31, 2024 In-Center Hemodialysis Treatment 4758-64-23Z91:17:25.000Z 8003-06-99U05:01:25.000Z BP Sitting (Pre-Dialysis) 160/105 mmHg BP Sitting (Post-Dialysis) 123/63 mmHg Concurrent Access: falseAV Fistula Upper Arm (Left) Arterial Sitting Heart Rate Pre-Dialysis 88 BPM Sitting H eart Rate Post-Dialysis 73 BPM Temperature Pre-Dialysis 97.8 degF Temperature Post -Dialysis 97.2 degF January 29, 2024 In-Center Hemodialysis Treatment 7235-64-36O97:42:00.000Z 3524-58-27L35:47:16.000Z BP Sitting (Pre-Dialysis) 136/61 mmHg BP Sitting (Post-Dialysis) 131/53 mmHg Concurrent Access: falseAV Fistula Upper Arm (Left) Arterial Sitting Heart Rate Pre-Dialysis 74 BPM Sitting H eart Rate Post-Dialysis 72 BPM Temperature Pre-Dialysis 97 degF Temperature Post -Dialysis 98.2 degF January 27, 2024 In-Center Hemodialysis Treatment 9021-94-57G67:57:48.000Z 6421-94-74E79:10:48.000Z BP Sitting (Pre-Dialysis) 140/54 mmHg BP Sitting (Post-Dialysis) 136/64 mmHg Concurrent Access: falseAV Fistula Upper Arm (Left) Arterial Sitting Heart Rate Pre-Dialysis 73 BPM Sitting H eart Rate Post-Dialysis 79 BPM Temperature Pre-Dialysis 97.6 degF Temperature Post -Dialysis 98.2 degF January 24, 2024 In-Center Hemodialysis Treatment 7446-28-94F33:03:00.000Z 7197-68-14G82:02:45.000Z BP Sitting (Pre-Dialysis) 133/57 mmHg BP Sitting (Post-Dialysis) 151/54 mmHg Concurrent Access: falseAV Fistula Upper Arm (Left) Arterial Sitting Heart Rate Pre-Dialysis 73 BPM Sitting H eart Rate Post-Dialysis 73 BPM Temperature Pre-Dialysis 97.8 degF Temperature Post -Dialysis 98.2 degF January 22, 2024 In-Center Hemodialysis Treatment 0457-21-46E78:56:41.000Z 8860-55-05R27:57:41.000Z BP Sitting (Pre-Dialysis) 124/55 mmHg BP Sitting (Post-Dialysis) 123/58 mmHg Concurrent Access: falseAV Fistula Upper Arm (Left) Arterial Sitting Heart Rate Pre-Dialysis 74 BPM Sitting H eart Rate Post-Dialysis 70 BPM Temperature Pre-Dialysis 97.8 degF Temperature Post -Dialysis 97.2 degF January 20, 2024 In-Center Hemodialysis Treatment 5202-38-85C77:59:00.000Z 3484-99-94I49:03:42.000Z BP Sitting (Pre-Dialysis) 107/64 mmHg BP Sitting (Post-Dialysis) 114/50 mmHg Concurrent Access: falseAV Fistula Upper Arm (Left) Arterial Sitting Heart Rate Pre-Dialysis 81 BPM Sitting H eart Rate Post-Dialysis 80 BPM Temperature Pre-Dialysis 97.4 degF Temperature Post -Dialysis 97.8 degF January 17, 2024 In-Center Hemodialysis Treatment 6926-81-52T48:10:00.000Z 2545-16-69W05:01:16.000Z BP Sitting (Pre-Dialysis) 92/50 mmHg BP Sitting (Post-Dialysis) 102/45 mmHg Concurrent Access: falseAV Fistula Upper Arm (Left) Arterial Sitting Heart Rate Pre-Dialysis 83 BPM Sitting H eart Rate Post-Dialysis 72 BPM Temperature Pre-Dialysis 97.2 degF January 15, 2024 In-Center Hemodialysis Treatment 1758-80-33O40:08:00.000Z 1051-69-33L82:10:16.000Z BP Sitting (Pre-Dialysis) 169/83 mmHg BP Sitting (Post-Dialysis) 138/55 mmHg Concurrent Access: falseAV Fistula Upper Arm (Left) Arterial Sitting Heart Rate Pre-Dialysis 75 BPM Sitting H eart Rate Post-Dialysis 71 BPM Temperature Pre-Dialysis 97.6 degF Temperature Post -Dialysis 98.2 degF January 13, 2024 In-Center Hemodialysis Treatment 0718-33-87R72:06:00.000Z 7093-82-18Y50:11:00.000Z BP Sitting (Pre-Dialysis) 122/55 mmHg BP Sitting (Post-Dialysis) 108/59 mmHg Concurrent Access: falseAV Fistula Upper Arm (Left) Arterial Sitting Heart Rate Pre-Dialysis 77 BPM Sitting H eart Rate Post-Dialysis 80 BPM Temperature Pre-Dialysis 97.3 degF Temperature Post -Dialysis 98 degF January 10, 2024 In-Center Hemodialysis Treatment 7743-69-63X04:01:00.000Z 8967-70-70M28:07:12.000Z BP Sitting (Pre-Dialysis) 156/71 mmHg BP Sitting (Post-Dialysis) 123/53 mmHg Concurrent Access: falseAV Fistula Upper Arm (Left) Arterial Sitting Heart Rate Pre-Dialysis 75 BPM Sitting H eart Rate Post-Dialysis 74 BPM Temperature Pre-Dialysis 97.5 degF Temperature Post -Dialysis 97.9 degF January 08, 2024 In-Center Hemodialysis Treatment 7385-41-76A53:16:00.000Z 5722-22-74O59:18:44.000Z BP Sitting (Pre-Dialysis) 119/53 mmHg BP Sitting (Post-Dialysis) 132/70 mmHg Concurrent Access: falseAV Fistula Upper Arm (Left) Arterial Sitting Heart Rate Pre-Dialysis 79 BPM Sitting H eart Rate Post-Dialysis 76 BPM Temperature Pre-Dialysis 97.8 degF Temperature Post -Dialysis 97.5 degF January 06, 2024 In-Center Hemodialysis Treatment 5389-63-25J73:04:00.000Z 9916-11-93X79:01:46.000Z BP Sitting (Pre-Dialysis) 133/62 mmHg BP Sitting (Post-Dialysis) 143/64 mmHg Concurrent Access: falseAV Fistula Upper Arm (Left) Arterial Sitting Heart Rate Pre-Dialysis 77 BPM Sitting H eart Rate Post-Dialysis 79 BPM Temperature Pre-Dialysis 98 degF Temperature Post -Dialysis 97.4 degF January 03, 2024 In-Center Hemodialysis Treatment 5462-02-28P31:12:00.000Z 7775-74-25X92:02:12.000Z BP Sitting (Pre-Dialysis) 107/82 mmHg BP Sitting (Post-Dialysis) 202/82 mmHg Concurrent Access: falseAV Fistula Upper Arm (Left) Arterial Sitting Heart Rate Pre-Dialysis 76 BPM Sitting H eart Rate Post-Dialysis 76 BPM Temperature Pre-Dialysis 98 degF Temperature Post -Dialysis 97.6 degF December 30, 2023 In-Center Hemodialysis Treatment 0489-86-44C24:58:00.000Z 2405-79-20P31:01:12.000Z BP Sitting (Pre-Dialysis) 187/75 mmHg BP Sitting (Post-Dialysis) 183/76 mmHg Concurrent Access: falseAV Fistula Upper Arm (Left) Arterial Sitting Heart Rate Pre-Dialysis 70 BPM Sitting H eart Rate Post-Dialysis 71 BPM Temperature Pre-Dialysis 97.8 degF Temperature Post -Dialysis 97.5 degF December 27, 2023 In-Center Hemodialysis Treatment 450 mL/min 800 mL/min Concurrent Access: false December 25, 2023 In-Center Hemodialysis Treatment 20 24 -0 - T1 4: 59 :5 3. 00 0Z 20 24 -0 T1 8: 00 :5 4. 00 0Z BP Sitting (Pre-Dial ysis) 120/72 mmHg BP Sitting (Post-Tamiko lysis) 141/57 mmHg Concurrent Access: falseAV Fistula Upper Arm (Left) Arterial Sitting Heart Rate Pre-Dialysis 78 BPM Sitting H eart Rate Post-Dialysis 73 BPM Temperature Pre-Dialysis 97.8 degF Temperature Post -Dialysis 97.6 degF December 23, 2023 In-Center Hemodialysis Treatment 0880-46-92W81:38:00.000Z 7448-46-99W70:02:47.000Z BP Sitting (Pre-Dialysis) 122/45 mmHg BP Sitting (Post-Dialysis) 162/64 mmHg Concurrent Access: falseAV Fistula Upper Arm (Left) Arterial Sitting Heart Rate Pre-Dialysis 75 BPM Sitting H eart Rate Post-Dialysis 73 BPM Temperature Pre-Dialysis 97.8 degF Temperature Post -Dialysis 97.1 degF December 20, 2023 In-Center Hemodialysis Treatment 6585-02-19Z60:52:12.000Z 8641-20-16Q42:54:12.000Z BP Sitting (Pre-Dialysis) 179/77 mmHg BP Sitting (Post-Dialysis) 180/70 mmHg Concurrent Access: falseAV Fistula Upper Arm (Left) Arterial Sitting Heart Rate Pre-Dialysis 70 BPM Sitting H eart Rate Post-Dialysis 74 BPM Temperature Pre-Dialysis 97.6 degF December 18, 2023 In-Center Hemodialysis Treatment 450 mL/min 500 mL/min Concurrent Access: false December 16, 2023 In-Center Hemodialysis Treatment 20 24 -0 7- 08 T1 5: 39 :1 2. 00 0Z 20 24 -0 7- 08 T1 8: 47 :1 2. 00 0Z BP Sitting (Pre-Dial ysis) 144/84 mmHg BP Sitting (Post-Tamiko lysis) 142/57 mmHg Concurrent Access: falseAV Fistula Upper Arm (Left) Arterial Sitting Heart Rate Pre-Dialysis 77 BPM Sitting H eart Rate Post-Dialysis 73 BPM Temperature Pre-Dialysis 97.1 degF Temperature Post -Dialysis 97.5 degF December 13, 2023 In-Center Hemodialysis Treatment 0697-02-37S41:43:23.000Z 9352-72-83Y93:48:23.000Z BP Sitting (Pre-Dialysis) 155/58 mmHg BP Sitting (Post-Dialysis) 127/54 mmHg Concurrent Access: falseAV Fistula Upper Arm (Left) Arterial Sitting Heart Rate Pre-Dialysis 75 BPM Sitting H eart Rate Post-Dialysis 72 BPM Temperature Pre-Dialysis 97.5 degF Temperature Post -Dialysis 97.8 degF December 11, 2023 In-Center Hemodialysis Treatment 8684-72-91B43:45:00.000Z 5645-06-44J44:29:27.000Z BP Sitting (Pre-Dialysis) 161/52 mmHg BP Sitting (Post-Dialysis) 100/44 mmHg Concurrent Access: falseAV Fistula Upper Arm (Left) Arterial Sitting Heart Rate Pre-Dialysis 68 BPM Sitting H eart Rate Post-Dialysis 67 BPM Temperature Pre-Dialysis 97.9 degF Temperature Post -Dialysis 97.5 degF December 09, 2023 In-Center Hemodialysis Treatment 6885-90-64W85:45:27.000Z 0037-27-63P73:45:27.000Z BP Sitting (Pre-Dialysis) 142/64 mmHg BP Sitting (Post-Dialysis) 156/57 mmHg Concurrent Access: falseAV Fistula Upper Arm (Left) Arterial Sitting Heart Rate Pre-Dialysis 70 BPM Sitting H eart Rate Post-Dialysis 72 BPM Temperature Pre-Dialysis 97.8 degF Temperature Post -Dialysis 97.8 degF December 06, 2023 In-Center Hemodialysis Treatment 9559-77-31O87:31:00.000Z 0423-75-04H06:47:18.000Z BP Sitting (Pre-Dialysis) 181/70 mmHg BP Sitting (Post-Dialysis) 134/77 mmHg Concurrent Access: falseAV Fistula Upper Arm (Left) Arterial Sitting Heart Rate Pre-Dialysis 78 BPM Sitting H eart Rate Post-Dialysis 73 BPM Temperature Pre-Dialysis 97.2 degF December 04, 2023 In-Center Hemodialysis Treatment 7944-05-31J32:07:18.000Z 5725-81-31D45:48:18.000Z BP Sitting (Pre-Dialysis) 188/94 mmHg BP Sitting (Post-Dialysis) 171/68 mmHg Concurrent Access: falseAV Fistula Upper Arm (Left) Arterial Sitting Heart Rate Pre-Dialysis 80 BPM Sitting H eart Rate Post-Dialysis 78 BPM Temperature Pre-Dialysis 97.8 degF Temperature Post -Dialysis 97 degF December 02, 2023 In-Center Hemodialysis Treatment 450 mL/min 500 mL/min Concurrent Access: false November 29, 2023 In-Center Hemodialysis Treatment 20 24 -0 T1 5: 30 :3 0. 00 0Z 20 24 -0 T1 8: 36 :3 1. 00 0Z BP Sitting (Pre-Dial ysis) 111/82 mmHg BP Sitting (Post-Tamiko lysis) 153/79 mmHg Concurrent Access: falseAV Fistula Upper Arm (Left) Arterial Sitting Heart Rate Pre-Dialysis 76 BPM Sitting H eart Rate Post-Dialysis 67 BPM Temperature Pre-Dialysis 97.4 degF Temperature Post -Dialysis 97.5 degF November 27, 2023 In-Center Hemodialysis Treatment 5698-44-98M63:29:00.000Z 9215-81-97X16:46:31.000Z BP Sitting (Pre-Dialysis) 98/52 mmHg BP Sitting (Post-Dialysis) 102/66 mmHg Concurrent Access: falseAV Fistula Upper Arm (Left) Arterial Sitting Heart Rate Pre-Dialysis 78 BPM Sitting H eart Rate Post-Dialysis 83 BPM Temperature Pre-Dialysis 97.8 degF Temperature Post -Dialysis 97.8 degF November 22, 2023 In-Center Hemodialysis Treatment 2450-73-56X10:36:31.000Z 1293-73-72J09:43:31.000Z BP Sitting (Pre-Dialysis) 130/56 mmHg BP Sitting (Post-Dialysis) 103/60 mmHg Concurrent Access: falseAV Fistula Upper Arm (Left) Arterial Sitting Heart Rate Pre-Dialysis 76 BPM Sitting H eart Rate Post-Dialysis 75 BPM Temperature Pre-Dialysis 97.8 degF Temperature Post -Dialysis 98 degF November 20, 2023 In-Center Hemodialysis Treatment 0022-14-46J53:49:31.000Z 3257-96-15I01:53:32.000Z BP Sitting (Pre-Dialysis) 203/90 mmHg BP Sitting (Post-Dialysis) 136/58 mmHg Concurrent Access: falseAV Fistula Upper Arm (Left) Arterial Sitting Heart Rate Pre-Dialysis 78 BPM Sitting H eart Rate Post-Dialysis 75 BPM Temperature Pre-Dialysis 97.8 degF Temperature Post -Dialysis 97.8 degF November 18, 2023 In-Center Hemodialysis Treatment 7102-96-73X81:46:31.000Z 4813-52-29D14:47:31.000Z BP Sitting (Pre-Dialysis) 137/78 mmHg BP Sitting (Post-Dialysis) 111/53 mmHg Concurrent Access: falseAV Fistula Upper Arm (Left) Arterial Sitting Heart Rate Pre-Dialysis 82 BPM Sitting H eart Rate Post-Dialysis 63 BPM Temperature Pre-Dialysis 97.5 degF Temperature Post -Dialysis 97.2 degF November 15, 2023 In-Center Hemodialysis Treatment 2650-07-37G58:41:00.000Z 1071-45-09B74:22:20.000Z BP Sitting (Pre-Dialysis) 180/66 mmHg BP Sitting (Post-Dialysis) 177/97 mmHg Concurrent Access: falseAV Fistula Upper Arm (Left) Arterial Sitting Heart Rate Pre-Dialysis 75 BPM Sitting H eart Rate Post-Dialysis 83 BPM Temperature Pre-Dialysis 97.3 degF Temperature Post -Dialysis 97.3 degF November 13, 2023 In-Center Hemodialysis Treatment 5611-46-31F69:41:00.000Z 9859-54-76E39:45:20.000Z BP Sitting (Pre-Dialysis) 201/73 mmHg BP Sitting (Post-Dialysis) 122/43 mmHg Concurrent Access: falseAV Fistula Upper Arm (Left) Arterial Sitting Heart Rate Pre-Dialysis 76 BPM Sitting H eart Rate Post-Dialysis 79 BPM Temperature Pre-Dialysis 97.6 degF Temperature Post -Dialysis 97.5 degF November 11, 2023 In-Center Hemodialysis Treatment 2099-42-67P03:39:20.000Z 2033-48-30M99:38:14.000Z BP Sitting (Pre-Dialysis) 173/75 mmHg BP Sitting (Post-Dialysis) 131/69 mmHg Concurrent Access: falseAV Fistula Upper Arm (Left) Arterial Sitting Heart Rate Pre-Dialysis 75 BPM Sitting H eart Rate Post-Dialysis 83 BPM Temperature Pre-Dialysis 97.8 degF Temperature Post -Dialysis 97.5 degF November 08, 2023 In-Center Hemodialysis Treatment 450 mL/min 500 mL/min Concurrent Access: false November 06, 2023 In-Center Hemodialysis Treatment 0 T1 5: 39 :0 0. 00 0Z 20 24 0 T1 8: 45 :4 5. 00 0Z BP Sitting (Pre-Dial ysis) 160/57 mmHg BP Sitting (Post-Tamiko lysis) 162/73 mmHg Concurrent Access: falseAV Fistula Upper Arm (Left) Arterial Sitting Heart Rate Pre-Dialysis 77 BPM Sitting H eart Rate Post-Dialysis 81 BPM Temperature Pre-Dialysis 97.2 degF Temperature Post -Dialysis 97.2 degF November 04, 2023 In-Center Hemodialysis Treatment 3077-13-52Y87:05:00.000Z 2725-33-96W39:03:28.000Z BP Sitting (Pre-Dialysis) 186/96 mmHg BP Sitting (Post-Dialysis) 115/55 mmHg Concurrent Access: falseAV Fistula Upper Arm (Left) Arterial Sitting Heart Rate Pre-Dialysis 79 BPM Sitting H eart Rate Post-Dialysis 79 BPM Temperature Pre-Dialysis 97.6 degF Temperature Post -Dialysis 97.1 degF November 01, 2023 In-Center Hemodialysis Treatment 2996-39-81F30:38:00.000Z 6457-89-42Q94:38:49.000Z BP Sitting (Pre-Dialysis) 131/72 mmHg BP Sitting (Post-Dialysis) 143/65 mmHg Concurrent Access: falseAV Fistula Upper Arm (Left) Arterial Sitting Heart Rate Pre-Dialysis 87 BPM Sitting H eart Rate Post-Dialysis 83 BPM Temperature Pre-Dialysis 97.5 degF Temperature Post -Dialysis 97.2 degF October 30, 2023 In-Center Hemodialysis Treatment 6375-35-55E96:41:00.000Z 6037-35-70I62:44:50.000Z BP Sitting (Pre-Dialysis) 188/103 mmHg BP Sitting (Post-Dialysis) 182/78 mmHg Concurrent Access: falseAV Fistula Upper Arm (Left) Arterial Sitting Heart Rate Pre-Dialysis 82 BPM BP Standing (Post-Dialysis) 182/78 mmHg Temperature Pre-Dialysis 97.3 degF Sitting Heart Ra te Post-Dialysis 82 BPM Standing Heart Rate Post-Tamiko lysis 82 BPM Temperature Post-Dialysis 97 .8 degF October 28, 2023 In-Center Hemodialysis Treatment 7353-34-87T56:47:49.000Z 3962-33-84O38:47:50.000Z BP Sitting (Pre-Dialysis) 184/85 mmHg BP Sitting (Post-Dialysis) 173/87 mmHg Concurrent Access: falseAV Fistula Upper Arm (Left) Arterial Sitting Heart Rate Pre-Dialysis 86 BPM Sitting H eart Rate Post-Dialysis 85 BPM Temperature Pre-Dialysis 97.8 degF Temperature Post -Dialysis 97.8 degF October 25, 2023 In-Center Hemodialysis Treatment 5665-99-03B41:44:00.000Z 5150-33-17G70:47:06.000Z BP Sitting (Pre-Dialysis) 153/83 mmHg BP Sitting (Post-Dialysis) 168/81 mmHg Concurrent Access: falseAV Fistula Upper Arm (Left) Arterial Sitting Heart Rate Pre-Dialysis 80 BPM Sitting H eart Rate Post-Dialysis 81 BPM Temperature Pre-Dialysis 97.8 degF Temperature Post -Dialysis 97.5 degF October 23, 2023 In-Center Hemodialysis Treatment 1112-74-59N66:44:00.000Z 3764-99-37G64:44:11.000Z BP Sitting (Pre-Dialysis) 190/84 mmHg BP Sitting (Post-Dialysis) 131/80 mmHg Concurrent Access: falseAV Fistula Upper Arm (Left) Arterial Sitting Heart Rate Pre-Dialysis 82 BPM Sitting H eart Rate Post-Dialysis 88 BPM Temperature Pre-Dialysis 97.5 degF Temperature Post -Dialysis 97.3 degF October 21, 2023 In-Center Hemodialysis Treatment 450 mL/min 500 mL/min Concurrent Access: false October 18, 2023 In-Center Hemodialysis Treatment 20 24 -0 - T1 6: 03 :0 0. 00 0Z 20 24 -0 - T1 8: 38 :4 1. 00 0Z BP Sitting (Pre-Dial ysis) 148/84 mmHg BP Sitting (Post-Tamiko lysis) 166/67 mmHg Concurrent Access: falseAV Fistula Upper Arm (Left) Arterial Sitting Heart Rate Pre-Dialysis 93 BPM Sitting H eart Rate Post-Dialysis 77 BPM Temperature Pre-Dialysis 97.5 degF Temperature Post -Dialysis 97.8 degF October 16, 2023 In-Center Hemodialysis Treatment 4751-91-33K53:41:00.000Z 2614-74-73Z53:43:41.000Z BP Sitting (Pre-Dialysis) 158/71 mmHg BP Sitting (Post-Dialysis) 171/70 mmHg Concurrent Access: falseAV Fistula Upper Arm (Left) Arterial Sitting Heart Rate Pre-Dialysis 86 BPM Sitting H eart Rate Post-Dialysis 83 BPM Temperature Pre-Dialysis 97.6 degF Temperature Post -Dialysis 97.5 degF October 14, 2023 In-Center Hemodialysis Treatment 8073-41-31N40:42:00.000Z 7340-90-56Q61:41:08.000Z BP Sitting (Pre-Dialysis) 142/88 mmHg BP Sitting (Post-Dialysis) 150/66 mmHg Concurrent Access: falseAV Fistula Upper Arm (Left) Arterial Sitting Heart Rate Pre-Dialysis 83 BPM Sitting H eart Rate Post-Dialysis 86 BPM Temperature Pre-Dialysis 97 degF Temperature Post -Dialysis 97.3 degF October 11, 2023 In-Center Hemodialysis Treatment 3072-24-42Z72:42:20.000Z 2775-23-50R54:44:20.000Z BP Sitting (Pre-Dialysis) 124/53 mmHg BP Sitting (Post-Dialysis) 123/52 mmHg Concurrent Access: falseAV Fistula Upper Arm (Left) Arterial Sitting Heart Rate Pre-Dialysis 73 BPM Sitting H eart Rate Post-Dialysis 79 BPM Temperature Pre-Dialysis 97.8 degF Temperature Post -Dialysis 97.4 degF October 09, 2023 In-Center Hemodialysis Treatment 3602-13-00R88:41:00.000Z 6084-89-54P84:44:20.000Z BP Sitting (Pre-Dialysis) 128/54 mmHg BP Sitting (Post-Dialysis) 123/60 mmHg Concurrent Access: falseAV Fistula Upper Arm (Left) Arterial Sitting Heart Rate Pre-Dialysis 76 BPM Sitting H eart Rate Post-Dialysis 80 BPM Temperature Pre-Dialysis 97.7 degF Temperature Post -Dialysis 97.6 degF October 07, 2023 In-Center Hemodialysis Treatment 4451-35-89J73:42:20.000Z 8765-63-51S64:46:20.000Z BP Sitting (Pre-Dialysis) 136/66 mmHg BP Sitting (Post-Dialysis) 136/78 mmHg Concurrent Access: falseAV Fistula Upper Arm (Left) Arterial Sitting Heart Rate Pre-Dialysis 88 BPM Sitting H eart Rate Post-Dialysis 93 BPM Temperature Pre-Dialysis 97.8 degF Temperature Post -Dialysis 97.5 degF October 02, 2023 In-Center Hemodialysis Treatment 2810-40-60S76:52:23.000Z 9143-48-04Y72:53:23.000Z BP Sitting (Pre-Dialysis) 133/59 mmHg BP Sitting (Post-Dialysis) 133/61 mmHg Concurrent Access: falseAV Fistula Upper Arm (Left) Arterial Sitting Heart Rate Pre-Dialysis 89 BPM Sitting H eart Rate Post-Dialysis 90 BPM Temperature Pre-Dialysis 97.2 degF Temperature Post -Dialysis 97.8 degF September 30, 2023 In-Center Hemodialysis Treatment 2961-34-12Z12:46:00.000Z 5479-29-24Z90:48:23.000Z BP Sitting (Pre-Dialysis) 153/69 mmHg BP Sitting (Post-Dialysis) 135/60 mmHg Concurrent Access: falseAV Fistula Upper Arm (Left) Arterial Sitting Heart Rate Pre-Dialysis 87 BPM Sitting H eart Rate Post-Dialysis 86 BPM Temperature Pre-Dialysis 97.5 degF Temperature Post -Dialysis 97.6 degF September 27, 2023 In-Center Hemodialysis Treatment 1018-68-99P57:44:43.000Z 3448-43-99J47:49:43.000Z BP Sitting (Pre-Dialysis) 132/69 mmHg BP Sitting (Post-Dialysis) 122/57 mmHg Concurrent Access: falseAV Fistula Upper Arm (Left) Arterial Sitting Heart Rate Pre-Dialysis 86 BPM Sitting H eart Rate Post-Dialysis 82 BPM Temperature Pre-Dialysis 97.5 degF Temperature Post -Dialysis 97.8 degF September 25, 2023 In-Center Hemodialysis Treatment 6764-46-41Q75:39:32.000Z 1682-45-76S46:46:32.000Z BP Sitting (Pre-Dialysis) 122/62 mmHg BP Sitting (Post-Dialysis) 131/58 mmHg Concurrent Access: falseAV Fistula Upper Arm (Left) Arterial Sitting Heart Rate Pre-Dialysis 79 BPM Sitting H eart Rate Post-Dialysis 80 BPM Temperature Pre-Dialysis 97.5 degF Temperature Post -Dialysis 97.2 degF September 23, 2023 In-Center Hemodialysis Treatment 2302-23-91M96:37:00.000Z 9985-97-89F69:37:32.000Z BP Sitting (Pre-Dialysis) 147/78 mmHg BP Sitting (Post-Dialysis) 123/54 mmHg Concurrent Access: falseAV Fistula Upper Arm (Left) Arterial Sitting Heart Rate Pre-Dialysis 87 BPM Sitting H eart Rate Post-Dialysis 81 BPM Temperature Pre-Dialysis 97.4 degF Temperature Post -Dialysis 97.5 degF September 20, 2023 In-Center Hemodialysis Treatment 6575-10-48M10:38:51.000Z 2877-84-90J09:38:51.000Z BP Sitting (Pre-Dialysis) 127/64 mmHg BP Sitting (Post-Dialysis) 127/53 mmHg Concurrent Access: falseAV Fistula Upper Arm (Left) Arterial Sitting Heart Rate Pre-Dialysis 76 BPM Sitting H eart Rate Post-Dialysis 75 BPM Temperature Pre-Dialysis 97.8 degF Temperature Post -Dialysis 97.3 degF September 18, 2023 In-Center Hemodialysis Treatment 3732-16-95T79:45:19.000Z 2544-23-01O75:43:19.000Z BP Sitting (Pre-Dialysis) 99/66 mmHg BP Sitting (Post-Dialysis) 111/56 mmHg Concurrent Access: falseAV Fistula Upper Arm (Left) Arterial Sitting Heart Rate Pre-Dialysis 72 BPM Sitting H eart Rate Post-Dialysis 72 BPM Temperature Pre-Dialysis 97.2 degF Temperature Post -Dialysis 97.4 degF September 16, 2023 In-Center Hemodialysis Treatment 450 mL/min 500 mL/min Concurrent Access: false September 16, 2023 In-Center Hemodialysis Treatment 20 24 -0 4- 08 T1 8: 24 :0 0. 00 0Z 20 24 -0 4- 08 T2 1: 25 :5 8. 00 0Z BP Sitting (Pre-Dial ysis) 150/65 mmHg BP Sitting (Post-Tamiko lysis) 119/59 mmHg Concurrent Access: falseAV Fistula Upper Arm (Left) Arterial Sitting Heart Rate Pre-Dialysis 72 BPM Sitting H eart Rate Post-Dialysis 75 BPM Temperature Pre-Dialysis 97.8 degF Temperature Post -Dialysis 97.8 degF September 13, 2023 In-Center Hemodialysis Treatment 3413-18-38R09:47:00.000Z 8056-81-34A10:46:11.000Z BP Sitting (Pre-Dialysis) 156/69 mmHg BP Sitting (Post-Dialysis) 142/70 mmHg Concurrent Access: falseAV Fistula Upper Arm (Left) Arterial Sitting Heart Rate Pre-Dialysis 75 BPM Sitting H eart Rate Post-Dialysis 79 BPM Temperature Pre-Dialysis 97.7 degF Temperature Post -Dialysis 97.4 degF September 09, 2023 In-Center Hemodialysis Treatment 450 mL/min 500 mL/min Concurrent Access: false September 06, 2023 In-Center Hemodialysis Treatment 20 24 -0 - T1 5: 49 :3 0. 00 0Z 20 24 -0 T1 8: 50 :2 9. 00 0Z BP Sitting (Pre-Dial ysis) 125/59 mmHg BP Sitting (Post-Tamiko lysis) 127/53 mmHg Concurrent Access: falseAV Fistula Upper Arm (Left) Arterial Sitting Heart Rate Pre-Dialysis 83 BPM Sitting H eart Rate Post-Dialysis 81 BPM Temperature Pre-Dialysis 97.8 degF Temperature Post -Dialysis 97.8 degF September 04, 2023 In-Center Hemodialysis Treatment 5236-73-00Q32:44:00.000Z 9132-40-08M45:49:29.000Z BP Sitting (Pre-Dialysis) 158/72 mmHg BP Sitting (Post-Dialysis) 149/85 mmHg Concurrent Access: falseAV Fistula Upper Arm (Left) Arterial Sitting Heart Rate Pre-Dialysis 80 BPM Sitting H eart Rate Post-Dialysis 81 BPM Temperature Pre-Dialysis 98.2 degF Temperature Post -Dialysis 97.8 degF September 02, 2023 In-Center Hemodialysis Treatment 1615-29-22P26:38:00.000Z 8865-04-23J23:39:29.000Z BP Sitting (Pre-Dialysis) 143/61 mmHg BP Sitting (Post-Dialysis) 135/66 mmHg Concurrent Access: falseAV Fistula Upper Arm (Left) Arterial Sitting Heart Rate Pre-Dialysis 80 BPM Sitting H eart Rate Post-Dialysis 84 BPM Temperature Pre-Dialysis 97.6 degF Temperature Post -Dialysis 97.2 degF August 30, 2023 In-Center Hemodialysis Treatment 9885-78-25F36:37:00.000Z 0335-67-42L48:38:06.000Z BP Sitting (Pre-Dialysis) 167/84 mmHg BP Sitting (Post-Dialysis) 174/77 mmHg Concurrent Access: falseAV Fistula Upper Arm (Left) Arterial Sitting Heart Rate Pre-Dialysis 88 BPM Sitting H eart Rate Post-Dialysis 91 BPM Temperature Pre-Dialysis 97.7 degF Temperature Post -Dialysis 97.5 degF August 28, 2023 In-Center Hemodialysis Treatment 8288-66-06M70:40:00.000Z 8091-02-10I31:46:11.000Z BP Sitting (Pre-Dialysis) 152/90 mmHg BP Sitting (Post-Dialysis) 172/82 mmHg Concurrent Access: falseAV Fistula Upper Arm (Left) Arterial Sitting Heart Rate Pre-Dialysis 85 BPM Sitting H eart Rate Post-Dialysis 90 BPM Temperature Pre-Dialysis 97.5 degF Temperature Post -Dialysis 97.1 degF August 26, 2023 In-Center Hemodialysis Treatment 8620-61-99M99:39:06.000Z 4520-47-81N28:39:06.000Z BP Sitting (Pre-Dialysis) 155/64 mmHg BP Sitting (Post-Dialysis) 156/69 mmHg Concurrent Access: falseAV Fistula Upper Arm (Left) Arterial Sitting Heart Rate Pre-Dialysis 76 BPM Sitting H eart Rate Post-Dialysis 79 BPM Temperature Pre-Dialysis 97.5 degF Temperature Post -Dialysis 97.4 degF August 23, 2023 In-Center Hemodialysis Treatment 4329-05-88B22:40:13.000Z 3823-72-12Y78:40:13.000Z BP Sitting (Pre-Dialysis) 172/52 mmHg BP Sitting (Post-Dialysis) 143/58 mmHg Concurrent Access: falseAV Fistula Upper Arm (Left) Arterial Sitting Heart Rate Pre-Dialysis 73 BPM Sitting H eart Rate Post-Dialysis 78 BPM Temperature Pre-Dialysis 98.1 degF Temperature Post -Dialysis 97.3 degF August 21, 2023 In-Center Hemodialysis Treatment 5800-19-83I10:46:20.000Z 0618-51-12O88:48:19.000Z BP Sitting (Pre-Dialysis) 171/79 mmHg BP Sitting (Post-Dialysis) 142/63 mmHg Concurrent Access: falseAV Fistula Upper Arm (Left) Arterial Sitting Heart Rate Pre-Dialysis 72 BPM Sitting H eart Rate Post-Dialysis 77 BPM Temperature Pre-Dialysis 97.1 degF Temperature Post -Dialysis 97.5 degF August 19, 2023 In-Center Hemodialysis Treatment 5652-44-13Y38:44:39.000Z 6814-17-30C23:46:38.000Z BP Sitting (Pre-Dialysis) 136/69 mmHg BP Sitting (Post-Dialysis) 119/77 mmHg Concurrent Access: falseAV Fistula Upper Arm (Left) Arterial Sitting Heart Rate Pre-Dialysis 72 BPM Sitting H eart Rate Post-Dialysis 76 BPM Temperature Pre-Dialysis 97.2 degF Temperature Post -Dialysis 97.2 degF August 16, 2023 In-Center Hemodialysis Treatment 5094-53-38Z35:42:25.000Z 9970-99-52H27:23:25.000Z BP Sitting (Pre-Dialysis) 135/52 mmHg BP Sitting (Post-Dialysis) 128/48 mmHg Concurrent Access: falseAV Fistula Upper Arm (Left) Arterial Sitting Heart Rate Pre-Dialysis 73 BPM BP Standing (Post-Dialysis) 133/56 mmHg Temperature Pre-Dialysis 97.3 degF Sitting Heart Ra te Post-Dialysis 70 BPM Standing Heart Rate Post-Tamiko lysis 72 BPM Temperature Post-Dialysis 97 .8 degF August 14, 2023 In-Center Hemodialysis Treatment 5237-76-26J19:32:00.000Z 0765-08-93Y72:31:19.000Z BP Sitting (Pre-Dialysis) 148/94 mmHg BP Sitting (Post-Dialysis) 121/74 mmHg Concurrent Access: falseAV Fistula Upper Arm (Left) Arterial Sitting Heart Rate Pre-Dialysis 74 BPM Sitting H eart Rate Post-Dialysis 77 BPM Temperature Pre-Dialysis 97.2 degF Temperature Post -Dialysis 97.6 degF August 12, 2023 In-Center Hemodialysis Treatment 9609-63-27S18:34:00.000Z 4583-37-22N10:31:19.000Z BP Sitting (Pre-Dialysis) 145/98 mmHg BP Sitting (Post-Dialysis) 148/81 mmHg Concurrent Access: falseAV Fistula Upper Arm (Left) Arterial Sitting Heart Rate Pre-Dialysis 78 BPM Sitting H eart Rate Post-Dialysis 65 BPM Temperature Pre-Dialysis 97.6 degF Temperature Post -Dialysis 97.5 degF August 09, 2023 In-Center Hemodialysis Treatment 2203-25-01R97:28:00.000Z 1724-22-57R69:29:08.000Z BP Sitting (Pre-Dialysis) 120/48 mmHg BP Sitting (Post-Dialysis) 120/45 mmHg Concurrent Access: falseAV Fistula Upper Arm (Left) Arterial Sitting Heart Rate Pre-Dialysis 60 BPM Sitting H eart Rate Post-Dialysis 81 BPM Temperature Pre-Dialysis 97.8 degF Temperature Post -Dialysis 97.4 degF August 07, 2023 In-Center Hemodialysis Treatment 2555-73-91O82:38:00.000Z 2198-85-21F16:36:15.000Z BP Sitting (Pre-Dialysis) 148/66 mmHg BP Sitting (Post-Dialysis) 125/62 mmHg Concurrent Access: falseAV Fistula Upper Arm (Left) Arterial Sitting Heart Rate Pre-Dialysis 78 BPM Sitting H eart Rate Post-Dialysis 79 BPM Temperature Pre-Dialysis 97.6 degF Temperature Post -Dialysis 97.6 degF August 05, 2023 In-Center Hemodialysis Treatment 7071-81-54I90:42:00.000Z 5920-18-64G04:42:08.000Z BP Sitting (Pre-Dialysis) 164/60 mmHg BP Sitting (Post-Dialysis) 137/48 mmHg Concurrent Access: falseAV Fistula Upper Arm (Left) Arterial Sitting Heart Rate Pre-Dialysis 78 BPM Sitting H eart Rate Post-Dialysis 72 BPM Temperature Pre-Dialysis 97.6 degF Temperature Post -Dialysis 97.2 degF August 02, 2023 In-Center Hemodialysis Treatment 1754-95-38H69:36:00.000Z 2200-70-97C70:36:28.000Z BP Sitting (Pre-Dialysis) 163/91 mmHg BP Sitting (Post-Dialysis) 128/61 mmHg Concurrent Access: falseAV Fistula Upper Arm (Left) Arterial Sitting Heart Rate Pre-Dialysis 79 BPM Sitting H eart Rate Post-Dialysis 75 BPM Temperature Pre-Dialysis 97.3 degF Temperature Post -Dialysis 97.7 degF July 31, 2023 In-Center Hemodialysis Treatment 2406-54-80X73:36:00.000Z 4060-08-65F62:40:17.000Z BP Sitting (Pre-Dialysis) 134/64 mmHg BP Sitting (Post-Dialysis) 132/61 mmHg Concurrent Access: falseAV Fistula Upper Arm (Left) Arterial Sitting Heart Rate Pre-Dialysis 82 BPM Sitting H eart Rate Post-Dialysis 80 BPM Temperature Pre-Dialysis 97.8 degF Temperature Post -Dialysis 97.8 degF July 29, 2023 In-Center Hemodialysis Treatment 6553-32-11F92:39:29.000Z 9843-10-41R61:39:28.000Z BP Sitting (Pre-Dialysis) 186/68 mmHg BP Sitting (Post-Dialysis) 155/73 mmHg Concurrent Access: falseAV Fistula Upper Arm (Left) Arterial Sitting Heart Rate Pre-Dialysis 70 BPM Sitting H eart Rate Post-Dialysis 75 BPM Temperature Pre-Dialysis 97.8 degF Temperature Post -Dialysis 97.4 degF July 26, 2023 In-Center Hemodialysis Treatment 9856-37-00P96:39:28.000Z 9658-86-60Q58:48:28.000Z BP Sitting (Pre-Dialysis) 115/87 mmHg BP Sitting (Post-Dialysis) 127/56 mmHg Concurrent Access: falseAV Fistula Upper Arm (Left) Arterial Sitting Heart Rate Pre-Dialysis 76 BPM Sitting H eart Rate Post-Dialysis 78 BPM Temperature Pre-Dialysis 97.5 degF Temperature Post -Dialysis 97.2 degF July 24, 2023 In-Center Hemodialysis Treatment 6491-11-52N38:40:19.000Z 2101-53-80W47:38:19.000Z BP Sitting (Pre-Dialysis) 110/67 mmHg BP Sitting (Post-Dialysis) 130/56 mmHg Concurrent Access: falseAV Fistula Upper Arm (Left) Arterial Sitting Heart Rate Pre-Dialysis 76 BPM Sitting H eart Rate Post-Dialysis 78 BPM Temperature Pre-Dialysis 97.8 degF Temperature Post -Dialysis 97.6 degF July 22, 2023 In-Center Hemodialysis Treatment 2661-93-52V42:41:19.000Z 0370-08-16X83:41:18.000Z BP Sitting (Pre-Dialysis) 180/62 mmHg BP Sitting (Post-Dialysis) 145/72 mmHg Concurrent Access: falseAV Fistula Upper Arm (Left) Arterial Sitting Heart Rate Pre-Dialysis 70 BPM Sitting H eart Rate Post-Dialysis 76 BPM Temperature Pre-Dialysis 97.6 degF Temperature Post -Dialysis 97.8 degF July 19, 2023 In-Center Hemodialysis Treatment 0072-50-17I35:36:00.000Z 5898-67-31U24:42:39.000Z BP Sitting (Pre-Dialysis) 134/77 mmHg BP Sitting (Post-Dialysis) 136/65 mmHg Concurrent Access: falseAV Fistula Upper Arm (Left) Arterial Sitting Heart Rate Pre-Dialysis 79 BPM Sitting H eart Rate Post-Dialysis 78 BPM Temperature Pre-Dialysis 97.6 degF Temperature Post -Dialysis 97.8 degF July 17, 2023 In-Center Hemodialysis Treatment 3516-07-97V27:35:26.000Z 3463-30-40C62:38:26.000Z BP Sitting (Pre-Dialysis) 158/67 mmHg BP Sitting (Post-Dialysis) 155/79 mmHg Concurrent Access: falseAV Fistula Upper Arm (Left) Arterial Sitting Heart Rate Pre-Dialysis 81 BPM Sitting H eart Rate Post-Dialysis 79 BPM Temperature Pre-Dialysis 97.5 degF Temperature Post -Dialysis 97.7 degF July 15, 2023 In-Center Hemodialysis Treatment 4194-37-37M26:36:40.000Z 1118-75-11X28:48:39.000Z BP Sitting (Pre-Dialysis) 146/88 mmHg BP Sitting (Post-Dialysis) 131/65 mmHg Concurrent Access: falseAV Fistula Upper Arm (Left) Arterial Sitting Heart Rate Pre-Dialysis 86 BPM Sitting H eart Rate Post-Dialysis 83 BPM Temperature Pre-Dialysis 97 degF Temperature Post -Dialysis 97.3 degF July 12, 2023 In-Center Hemodialysis Treatment 3693-55-19D19:41:00.000Z 2128-06-22N37:42:26.000Z BP Sitting (Pre-Dialysis) 180/72 mmHg BP Sitting (Post-Dialysis) 143/71 mmHg Concurrent Access: falseAV Fistula Upper Arm (Left) Arterial Sitting Heart Rate Pre-Dialysis 75 BPM Sitting H eart Rate Post-Dialysis 83 BPM Temperature Pre-Dialysis 97.9 degF Temperature Post -Dialysis 97.2 degF July 10, 2023 In-Center Hemodialysis Treatment 3819-98-80K20:49:00.000Z 5693-54-35D80:50:22.000Z BP Sitting (Pre-Dialysis) 146/71 mmHg BP Sitting (Post-Dialysis) 142/65 mmHg Concurrent Access: falseAV Fistula Upper Arm (Left) Arterial Sitting Heart Rate Pre-Dialysis 79 BPM Sitting H eart Rate Post-Dialysis 84 BPM Temperature Pre-Dialysis 97.5 degF Temperature Post -Dialysis 97.8 degF July 08, 2023 In-Center Hemodialysis Treatment 3165-37-75T34:41:00.000Z 2569-37-08U29:42:09.000Z BP Sitting (Pre-Dialysis) 163/74 mmHg BP Sitting (Post-Dialysis) 144/69 mmHg Concurrent Access: falseAV Fistula Upper Arm (Left) Arterial Sitting Heart Rate Pre-Dialysis 77 BPM Sitting H eart Rate Post-Dialysis 81 BPM Temperature Pre-Dialysis 97.3 degF Temperature Post -Dialysis 97.8 degF July 05, 2023 In-Center Hemodialysis Treatment 9762-19-53J85:41:22.000Z 5575-88-61I20:40:21.000Z BP Sitting (Pre-Dialysis) 149/87 mmHg BP Sitting (Post-Dialysis) 154/75 mmHg Concurrent Access: falseAV Fistula Upper Arm (Left) Arterial Sitting Heart Rate Pre-Dialysis 83 BPM Sitting H eart Rate Post-Dialysis 84 BPM Temperature Pre-Dialysis 97.8 degF Temperature Post -Dialysis 97.8 degF July 03, 2023 In-Center Hemodialysis Treatment 7239-89-29O88:39:27.000Z 5049-76-23B27:41:26.000Z BP Sitting (Pre-Dialysis) 146/62 mmHg BP Sitting (Post-Dialysis) 144/71 mmHg Concurrent Access: falseAV Fistula Upper Arm (Left) Arterial Sitting Heart Rate Pre-Dialysis 83 BPM Sitting H eart Rate Post-Dialysis 84 BPM Temperature Pre-Dialysis 97.8 degF Temperature Post -Dialysis 97.8 degF June 28, 2023 In-Center Hemodialysis Treatment 7372-78-31N80:42:53.000Z 7862-34-54S25:45:52.000Z BP Sitting (Pre-Dialysis) 127/87 mmHg BP Sitting (Post-Dialysis) 136/73 mmHg Concurrent Access: falseAV Fistula Upper Arm (Left) Arterial Sitting Heart Rate Pre-Dialysis 72 BPM Sitting H eart Rate Post-Dialysis 68 BPM Temperature Pre-Dialysis 97.8 degF Temperature Post -Dialysis 97.1 degF June 26, 2023 In-Center Hemodialysis Treatment 6870-78-35I12:43:52.000Z 1118-24-22N18:47:52.000Z BP Sitting (Pre-Dialysis) 137/81 mmHg BP Sitting (Post-Dialysis) 139/56 mmHg Concurrent Access: falseAV Fistula Upper Arm (Left) Arterial Sitting Heart Rate Pre-Dialysis 72 BPM Sitting H eart Rate Post-Dialysis 70 BPM Temperature Pre-Dialysis 97.8 degF Temperature Post -Dialysis 97 degF June 24, 2023 In-Center Hemodialysis Treatment 5817-48-05E45:43:00.000Z 5376-04-26Q12:46:52.000Z BP Sitting (Pre-Dialysis) 154/65 mmHg BP Sitting (Post-Dialysis) 170/70 mmHg Concurrent Access: falseAV Fistula Upper Arm (Left) Arterial Sitting Heart Rate Pre-Dialysis 74 BPM Sitting H eart Rate Post-Dialysis 77 BPM Temperature Pre-Dialysis 97 degF Temperature Post -Dialysis 97 degF June 21, 2023 In-Center Hemodialysis Treatment 0704-27-73P00:40:59.000Z 6369-61-41J21:42:59.000Z BP Sitting (Pre-Dialysis) 148/69 mmHg BP Sitting (Post-Dialysis) 121/62 mmHg Concurrent Access: falseAV Fistula Upper Arm (Left) Arterial Sitting Heart Rate Pre-Dialysis 74 BPM Sitting H eart Rate Post-Dialysis 76 BPM Temperature Pre-Dialysis 97.8 degF Temperature Post -Dialysis 97.8 degF June 19, 2023 In-Center Hemodialysis Treatment 1801-86-17H04:46:59.000Z 9115-32-31T71:50:58.000Z BP Sitting (Pre-Dialysis) 156/54 mmHg BP Sitting (Post-Dialysis) 130/96 mmHg Concurrent Access: falseAV Fistula Upper Arm (Left) Arterial Sitting Heart Rate Pre-Dialysis 76 BPM Sitting H eart Rate Post-Dialysis 67 BPM Temperature Pre-Dialysis 97 degF Temperature Post -Dialysis 97.8 degF June 17, 2023 In-Center Hemodialysis Treatment 9165-50-17P68:42:00.000Z 0790-87-50X63:50:28.000Z BP Sitting (Pre-Dialysis) 141/63 mmHg BP Sitting (Post-Dialysis) 145/73 mmHg Concurrent Access: falseAV Fistula Upper Arm (Left) Arterial Sitting Heart Rate Pre-Dialysis 73 BPM Sitting H eart Rate Post-Dialysis 63 BPM Temperature Pre-Dialysis 97.7 degF Temperature Post -Dialysis 98.3 degF June 14, 2023 In-Center Hemodialysis Treatment 9108-93-35S06:43:00.000Z 0894-90-29C37:47:58.000Z BP Sitting (Pre-Dialysis) 163/71 mmHg BP Sitting (Post-Dialysis) 181/71 mmHg Concurrent Access: falseAV Fistula Upper Arm (Left) Arterial Sitting Heart Rate Pre-Dialysis 73 BPM Sitting H eart Rate Post-Dialysis 75 BPM Temperature Pre-Dialysis 97.9 degF Temperature Post -Dialysis 97.8 degF June 12, 2023 In-Center Hemodialysis Treatment 5061-86-60F09:40:10.000Z 4076-44-32Y77:44:09.000Z BP Sitting (Pre-Dialysis) 160/69 mmHg BP Sitting (Post-Dialysis) 144/69 mmHg Concurrent Access: falseAV Fistula Upper Arm (Left) Arterial Sitting Heart Rate Pre-Dialysis 74 BPM Sitting H eart Rate Post-Dialysis 71 BPM Temperature Pre-Dialysis 97.8 degF Temperature Post -Dialysis 97.3 degF June 09, 2023 In-Center Hemodialysis Treatment 0052-08-95L72:40:01.000Z 5111-19-36I78:40:01.000Z BP Sitting (Pre-Dialysis) 147/68 mmHg BP Sitting (Post-Dialysis) 153/83 mmHg Concurrent Access: falseAV Fistula Upper Arm (Left) Arterial Sitting Heart Rate Pre-Dialysis 78 BPM Sitting H eart Rate Post-Dialysis 85 BPM Temperature Pre-Dialysis 97.8 degF Temperature Post -Dialysis 97.8 degF June 07, 2023 In-Center Hemodialysis Treatment 5194-22-56T72:37:08.000Z 4027-57-87R30:48:08.000Z BP Sitting (Pre-Dialysis) 154/62 mmHg BP Sitting (Post-Dialysis) 175/65 mmHg Concurrent Access: falseAV Fistula Upper Arm (Left) Arterial BP Standing (Pre-Dialysis) 157/62 mmHg Sitting Heart Rate Post-Dialysis 79 BPM Sitting Heart Rate Pre-Dialysis 75 BPM Standing Heart Rate Pre-Dialysis 76 BPM Temperature Pre-Dialysis 97.8 degF June 05, 2023 In-Center Hemodialysis Treatment 8861-21-50S61:37:09.000Z 2470-86-74W39:40:08.000Z BP Sitting (Pre-Dialysis) 175/84 mmHg BP Sitting (Post-Dialysis) 150/77 mmHg Concurrent Access: falseAV Fistula Upper Arm (Left) Arterial Sitting Heart Rate Pre-Dialysis 71 BPM Sitting H eart Rate Post-Dialysis 74 BPM Temperature Pre-Dialysis 97.8 degF Temperature Post -Dialysis 97.8 degF June 02, 2023 In-Center Hemodialysis Treatment 0030-60-78Z56:23:00.000Z 6047-50-78F40:07:39.000Z BP Sitting (Pre-Dialysis) 176/78 mmHg BP Sitting (Post-Dialysis) 161/80 mmHg Concurrent Access: falseAV Fistula Upper Arm (Left) Arterial Sitting Heart Rate Pre-Dialysis 85 BPM Sitting H eart Rate Post-Dialysis 82 BPM Temperature Pre-Dialysis 97.8 degF Temperature Post -Dialysis 97.3 degF May 31, 2023 In-Center Hemodialysis Treatment 8408-54-93L83:37:22.000Z 2225-21-36Y50:50:21.000Z BP Sitting (Pre-Dialysis) 152/84 mmHg BP Sitting (Post-Dialysis) 152/67 mmHg Concurrent Access: falseAV Fistula Upper Arm (Left) Arterial Sitting Heart Rate Pre-Dialysis 73 BPM Sitting H eart Rate Post-Dialysis 74 BPM Temperature Pre-Dialysis 97.8 degF Temperature Post -Dialysis 97.8 degF May 29, 2023 In-Center Hemodialysis Treatment 2462-24-94I17:35:22.000Z 8168-10-89O86:36:22.000Z BP Sitting (Pre-Dialysis) 154/70 mmHg BP Sitting (Post-Dialysis) 149/65 mmHg Concurrent Access: falseAV Fistula Upper Arm (Left) Arterial Sitting Heart Rate Pre-Dialysis 82 BPM Sitting H eart Rate Post-Dialysis 81 BPM Temperature Pre-Dialysis 97.8 degF Temperature Post -Dialysis 97.4 degF May 27, 2023 In-Center Hemodialysis Treatment 9941-83-13Z20:45:22.000Z 7049-86-50A20:45:21.000Z BP Sitting (Pre-Dialysis) 129/67 mmHg BP Sitting (Post-Dialysis) 167/66 mmHg Concurrent Access: falseAV Fistula Upper Arm (Left) Arterial Sitting Heart Rate Pre-Dialysis 84 BPM Sitting H eart Rate Post-Dialysis 66 BPM Temperature Pre-Dialysis 97 degF Temperature Post -Dialysis 97.4 degF May 24, 2023 In-Center Hemodialysis Treatment 3311-19-00S15:42:00.000Z 8041-19-52O53:43:47.000Z BP Sitting (Pre-Dialysis) 160/75 mmHg BP Sitting (Post-Dialysis) 162/66 mmHg Concurrent Access: falseAV Fistula Upper Arm (Left) Arterial Sitting Heart Rate Pre-Dialysis 83 BPM Sitting H eart Rate Post-Dialysis 80 BPM Temperature Pre-Dialysis 97.3 degF Temperature Post -Dialysis 97.6 degF May 22, 2023 In-Center Hemodialysis Treatment 0470-30-76W73:45:11.000Z 5085-35-93K17:50:11.000Z BP Sitting (Pre-Dialysis) 134/96 mmHg BP Sitting (Post-Dialysis) 127/58 mmHg Concurrent Access: falseAV Fistula Upper Arm (Left) Arterial Sitting Heart Rate Pre-Dialysis 84 BPM BP Standing (Post-Dialysis) 124/58 mmHg Temperature Pre-Dialysis 97.4 degF Sitting Heart Ra te Post-Dialysis 89 BPM Standing Heart Rate Post-Tamiko lysis 86 BPM Temperature Post-Dialysis 97 .8 degF May 20, 2023 In-Center Hemodialysis Treatment 6746-77-04T33:40:33.000Z 5903-68-24N47:45:32.000Z BP Sitting (Pre-Dialysis) 182/77 mmHg BP Sitting (Post-Dialysis) 121/76 mmHg Concurrent Access: falseAV Fistula Upper Arm (Left) Arterial Sitting Heart Rate Pre-Dialysis 73 BPM Sitting H eart Rate Post-Dialysis 80 BPM Temperature Pre-Dialysis 97.2 degF Temperature Post -Dialysis 97.8 degF May 17, 2023 In-Center Hemodialysis Treatment 2478-90-75X70:46:22.000Z 0490-25-32F45:46:21.000Z BP Sitting (Pre-Dialysis) 191/83 mmHg BP Sitting (Post-Dialysis) 199/89 mmHg Concurrent Access: falseAV Fistula Upper Arm (Left) Arterial BP Standing (Pre-Dialysis) 175/72 mmHg Sitti ng Heart Rate Post-Dialysis 86 BPM Sitting Heart Rate Pre-Dialysis 84 BPM Temperatu re Post-Dialysis 97.5 degF Standing Heart Rate Pre-Dialysis 84 BPM Temperature Pre-Dialysis 97.8 degF May 15, 2023 In-Center Hemodialysis Treatment 6390-40-84B68:43:21.000Z 7384-44-46R09:45:22.000Z BP Sitting (Pre-Dialysis) 174/84 mmHg BP Sitting (Post-Dialysis) 185/81 mmHg Concurrent Access: falseAV Fistula Upper Arm (Left) Arterial Sitting Heart Rate Pre-Dialysis 86 BPM Sitting H eart Rate Post-Dialysis 69 BPM Temperature Pre-Dialysis 97.8 degF Temperature Post -Dialysis 97.3 degF May 13, 2023 In-Center Hemodialysis Treatment 9958-99-97Q40:42:00.000Z 2061-72-77O35:45:21.000Z BP Sitting (Pre-Dialysis) 158/94 mmHg BP Sitting (Post-Dialysis) 205/93 mmHg Concurrent Access: falseAV Fistula Upper Arm (Left) Arterial Sitting Heart Rate Pre-Dialysis 89 BPM Sitting H eart Rate Post-Dialysis 89 BPM Temperature Pre-Dialysis 97.6 degF Temperature Post -Dialysis 97.4 degF May 10, 2023 In-Center Hemodialysis Treatment 4331-84-29J54:40:33.000Z 9361-01-87V66:42:33.000Z BP Sitting (Pre-Dialysis) 201/74 mmHg BP Sitting (Post-Dialysis) 210/86 mmHg Concurrent Access: falseAV Fistula Upper Arm (Left) Arterial Sitting Heart Rate Pre-Dialysis 83 BPM Sitting H eart Rate Post-Dialysis 79 BPM Temperature Pre-Dialysis 97.8 degF Temperature Post -Dialysis 97.8 degF May 08, 2023 In-Center Hemodialysis Treatment 5660-88-99X77:54:18.000Z 8312-92-31E73:53:18.000Z BP Sitting (Pre-Dialysis) 159/84 mmHg BP Sitting (Post-Dialysis) 133/100 mmHg Concurrent Access: falseAV Fistula Upper Arm (Left) Arterial Sitting Heart Rate Pre-Dialysis 71 BPM Sitting H eart Rate Post-Dialysis 63 BPM Temperature Pre-Dialysis 97.8 degF Temperature Post -Dialysis 97.4 degF May 06, 2023 In-Center Hemodialysis Treatment 7946-54-95Y42:25:33.000Z 0232-90-54H76:28:33.000Z BP Sitting (Pre-Dialysis) 222/88 mmHg BP Sitting (Post-Dialysis) 241/108 mmHg Concurrent Access: falseAV Fistula Upper Arm (Left) Arterial Sitting Heart Rate Pre-Dialysis 76 BPM Sitting H eart Rate Post-Dialysis 81 BPM Temperature Pre-Dialysis 97.5 degF Temperature Post -Dialysis 97.3 degF May 03, 2023 In-Center Hemodialysis Treatment 4723-11-57E22:07:00.000Z 4873-04-98E99:48:22.000Z BP Sitting (Pre-Dialysis) 189/79 mmHg BP Sitting (Post-Dialysis) 186/70 mmHg Concurrent Access: falseAV Fistula Upper Arm (Left) Arterial Sitting Heart Rate Pre-Dialysis 81 BPM BP Standing (Post-Dialysis) 168/69 mmHg Temperature Pre-Dialysis 97.6 degF Sitting Heart Ra te Post-Dialysis 81 BPM Standing Heart Rate Post-Tamiko lysis 78 BPM Temperature Post-Dialysis 97 .8 degF April 30, 2023 In-Center Hemodialysis Treatment 7537-36-97Y11:36:22.000Z 6938-99-58W08:39:21.000Z BP Sitting (Pre-Dialysis) 181/91 mmHg BP Sitting (Post-Dialysis) 213/99 mmHg Concurrent Access: falseAV Fistula Upper Arm (Left) Arterial Sitting Heart Rate Pre-Dialysis 78 BPM Sitting H eart Rate Post-Dialysis 83 BPM Temperature Pre-Dialysis 97 degF Temperature Post -Dialysis 97.5 degF April 26, 2023 In-Center Hemodialysis Treatment 7925-67-23X99:42:00.000Z 9306-92-63X15:42:47.000Z BP Sitting (Pre-Dialysis) 200/81 mmHg BP Sitting (Post-Dialysis) 182/85 mmHg Concurrent Access: falseAV Fistula Upper Arm (Left) Arterial Sitting Heart Rate Pre-Dialysis 76 BPM Sitting H eart Rate Post-Dialysis 76 BPM Temperature Pre-Dialysis 97.5 degF Temperature Post -Dialysis 97.3 degF April 24, 2023 In-Center Hemodialysis Treatment 4425-17-41W69:16:29.000Z 6352-65-31M45:18:28.000Z BP Sitting (Pre-Dialysis) 150/79 mmHg BP Sitting (Post-Dialysis) 171/70 mmHg Concurrent Access: falseAV Fistula Upper Arm (Left) Arterial Sitting Heart Rate Pre-Dialysis 79 BPM Sitting H eart Rate Post-Dialysis 82 BPM Temperature Pre-Dialysis 97.9 degF Temperature Post -Dialysis 97 degF April 22, 2023 In-Center Hemodialysis Treatment 0635-66-60F39:41:00.000Z 9430-58-80U93:47:17.000Z BP Sitting (Pre-Dialysis) 192/79 mmHg BP Sitting (Post-Dialysis) 209/79 mmHg Concurrent Access: falseAV Fistula Upper Arm (Left) Arterial Sitting Heart Rate Pre-Dialysis 79 BPM Sitting H eart Rate Post-Dialysis 83 BPM Temperature Pre-Dialysis 97.7 degF Temperature Post -Dialysis 97.6 degF April 19, 2023 In-Center Hemodialysis Treatment 450 mL/min 500 mL/min Concurrent Access: false April 17, 2023 In-Center Hemodialysis Treatment T1 6: 41 :0 8. 00 0Z T1 9: 33 :0 7. 00 0Z BP Sitting (Pre-Dial ysis) 189/82 mmHg BP Sitting (Post-Tamiko lysis) 135/58 mmHg Concurrent Access: falseAV Fistula Upper Arm (Left) Arterial Sitting Heart Rate Pre-Dialysis 85 BPM Sitting H eart Rate Post-Dialysis 77 BPM Temperature Pre-Dialysis 97.8 degF Temperature Post -Dialysis 97.3 degF April 15, 2023 In-Center Hemodialysis Treatment 5182-72-17P97:57:00.000Z 1976-40-27Y48:49:24.000Z BP Sitting (Pre-Dialysis) 164/93 mmHg BP Sitting (Post-Dialysis) 149/82 mmHg Concurrent Access: falseAV Fistula Upper Arm (Left) Arterial Sitting Heart Rate Pre-Dialysis 80 BPM Sitting H eart Rate Post-Dialysis 80 BPM Temperature Pre-Dialysis 97.6 degF Temperature Post -Dialysis 97 degF April 12, 2023 In-Center Hemodialysis Treatment 2709-13-21C56:49:00.000Z 3080-21-49W90:46:22.000Z BP Sitting (Pre-Dialysis) 148/72 mmHg BP Sitting (Post-Dialysis) 161/86 mmHg Concurrent Access: falseAV Fistula Upper Arm (Left) Arterial Sitting Heart Rate Pre-Dialysis 77 BPM Sitting H eart Rate Post-Dialysis 77 BPM Temperature Pre-Dialysis 97.9 degF Temperature Post -Dialysis 97.8 degF April 10, 2023 In-Center Hemodialysis Treatment 1624-52-98P13:47:23.000Z 3593-26-84A49:31:22.000Z BP Sitting (Pre-Dialysis) 156/73 mmHg BP Sitting (Post-Dialysis) 174/88 mmHg Concurrent Access: falseAV Fistula Upper Arm (Left) Arterial Sitting Heart Rate Pre-Dialysis 77 BPM Sitting H eart Rate Post-Dialysis 78 BPM Temperature Pre-Dialysis 97 degF Temperature Post -Dialysis 97 degF April 08, 2023 In-Center Hemodialysis Treatment 0076-43-49H18:51:00.000Z 0113-26-85G23:53:23.000Z BP Sitting (Pre-Dialysis) 175/82 mmHg BP Sitting (Post-Dialysis) 168/97 mmHg Concurrent Access: falseAV Fistula Upper Arm (Left) Arterial Sitting Heart Rate Pre-Dialysis 78 BPM Sitting H eart Rate Post-Dialysis 85 BPM Temperature Pre-Dialysis 97.9 degF Temperature Post -Dialysis 97.3 degF April 05, 2023 In-Center Hemodialysis Treatment 3866-59-68M05:38:21.000Z 7663-39-59O60:38:21.000Z BP Sitting (Pre-Dialysis) 141/72 mmHg BP Sitting (Post-Dialysis) 157/76 mmHg Concurrent Access: falseAV Fistula Upper Arm (Left) Arterial Sitting Heart Rate Pre-Dialysis 73 BPM Sitting H eart Rate Post-Dialysis 80 BPM Temperature Pre-Dialysis 97.8 degF Temperature Post -Dialysis 97.3 degF April 03, 2023 In-Center Hemodialysis Treatment 8106-44-17C93:46:21.000Z 5692-53-77O18:51:21.000Z BP Sitting (Pre-Dialysis) 160/83 mmHg BP Sitting (Post-Dialysis) 164/71 mmHg Concurrent Access: falseAV Fistula Upper Arm (Left) Arterial Sitting Heart Rate Pre-Dialysis 77 BPM Sitting H eart Rate Post-Dialysis 78 BPM Temperature Pre-Dialysis 97.2 degF Temperature Post -Dialysis 97.8 degF April 01, 2023 In-Center Hemodialysis Treatment 6690-41-05J76:44:49.000Z 7103-51-90U79:48:48.000Z BP Sitting (Pre-Dialysis) 182/82 mmHg BP Sitting (Post-Dialysis) 177/84 mmHg Concurrent Access: falseAV Fistula Upper Arm (Left) Arterial Sitting Heart Rate Pre-Dialysis 80 BPM Sitting H eart Rate Post-Dialysis 89 BPM Temperature Pre-Dialysis 97.8 degF Temperature Post -Dialysis 97.8 degF March 29, 2023 In-Center Hemodialysis Treatment 3862-48-17O58:56:08.000Z 3512-66-37N76:55:07.000Z BP Sitting (Pre-Dialysis) 127/101 mmHg BP Sitting (Post-Dialysis) 171/74 mmHg Concurrent Access: falseAV Fistula Upper Arm (Left) Arterial Sitting Heart Rate Pre-Dialysis 78 BPM Sitting H eart Rate Post-Dialysis 68 BPM Temperature Pre-Dialysis 97.8 degF Temperature Post -Dialysis 97 degF March 27, 2023 In-Center Hemodialysis Treatment 9327-87-37O15:49:00.000Z 0986-81-94N60:51:31.000Z BP Sitting (Pre-Dialysis) 171/75 mmHg BP Sitting (Post-Dialysis) 161/74 mmHg Concurrent Access: falseAV Fistula Upper Arm (Left) Arterial Sitting Heart Rate Pre-Dialysis 76 BPM Sitting H eart Rate Post-Dialysis 75 BPM Temperature Pre-Dialysis 97.6 degF March 25, 2023 In-Center Hemodialysis Treatment 9079-43-41Q57:42:00.000Z 8761-12-25H62:42:14.000Z BP Sitting (Pre-Dialysis) 182/81 mmHg BP Sitting (Post-Dialysis) 184/78 mmHg Concurrent Access: falseAV Fistula Upper Arm (Left) Arterial Sitting Heart Rate Pre-Dialysis 76 BPM Sitting H eart Rate Post-Dialysis 77 BPM Temperature Pre-Dialysis 97 degF Temperature Post -Dialysis 97.3 degF March 22, 2023 In-Center Hemodialysis Treatment 8980-28-47P21:48:00.000Z 7631-02-53V89:23:59.000Z BP Sitting (Pre-Dialysis) 169/70 mmHg BP Sitting (Post-Dialysis) 159/80 mmHg Concurrent Access: falseAV Fistula Upper Arm (Left) Arterial Sitting Heart Rate Pre-Dialysis 76 BPM Sitting H eart Rate Post-Dialysis 74 BPM Temperature Pre-Dialysis 97.6 degF Temperature Post -Dialysis 97.6 degF March 20, 2023 In-Center Hemodialysis Treatment 8089-71-19M76:48:00.000Z 8105-77-74A99:48:59.000Z BP Sitting (Pre-Dialysis) 128/82 mmHg BP Sitting (Post-Dialysis) 199/97 mmHg Concurrent Access: falseAV Fistula Upper Arm (Left) Arterial Sitting Heart Rate Pre-Dialysis 72 BPM Sitting H eart Rate Post-Dialysis 80 BPM Temperature Pre-Dialysis 97.9 degF Temperature Post -Dialysis 97.9 degF March 18, 2023 In-Center Hemodialysis Treatment 3725-71-39P25:37:59.000Z 7989-25-13O90:35:59.000Z BP Sitting (Pre-Dialysis) 213/77 mmHg BP Sitting (Post-Dialysis) 180/92 mmHg Concurrent Access: falseAV Fistula Upper Arm (Left) Arterial BP Standing (Pre-Dialysis) 200/87 mmHg Sitti ng Heart Rate Post-Dialysis 71 BPM Sitting Heart Rate Pre-Dialysis 72 BPM Temperatu re Post-Dialysis 97.4 degF Standing Heart Rate Pre-Dialysis 75 BPM Temperature Pre-Dialysis 97.8 degF March 15, 2023 In-Center Hemodialysis Treatment 4083-78-77A55:47:27.000Z 2644-13-04L16:46:35.000Z BP Sitting (Pre-Dialysis) 155/64 mmHg BP Sitting (Post-Dialysis) 162/75 mmHg Concurrent Access: falseAV Fistula Upper Arm (Left) Arterial Sitting Heart Rate Pre-Dialysis 78 BPM BP Standing (Post-Dialysis) 174/74 mmHg Temperature Pre-Dialysis 97.8 degF Sitting Heart Ra te Post-Dialysis 78 BPM Standing Heart Rate Post-Tamiko lysis 78 BPM Temperature Post-Dialysis 97 .8 degF March 13, 2023 In-Center Hemodialysis Treatment 1437-39-78A10:06:00.000Z 0698-67-50A95:49:07.000Z BP Sitting (Pre-Dialysis) 155/71 mmHg BP Sitting (Post-Dialysis) 150/84 mmHg Concurrent Access: falseAV Fistula Upper Arm (Left) Arterial Sitting Heart Rate Pre-Dialysis 81 BPM Sitting H eart Rate Post-Dialysis 80 BPM Temperature Pre-Dialysis 97.8 degF Temperature Post -Dialysis 97.6 degF March 11, 2023 In-Center Hemodialysis Treatment 450 mL/min 500 mL/min Concurrent Access: false March 08, 2023 In-Center Hemodialysis Treatment 20 -0 - T1 5: 37 :0 0. 00 0Z 20 23 -0 - T1 8: 39 :3 1. 00 0Z BP Sitting (Pre-Dial ysis) 199/78 mmHg BP Sitting (Post-Tamiko lysis) 171/8 0 mmHg Concurrent Access: falseAV Fistula Upper Arm (Left) Arterial Sitting Heart Rate Pre-Dialysis 75 BPM Sitting H eart Rate Post-Dialysis 79 BPM Temperature Pre-Dialysis 97.9 degF Temperature Post -Dialysis 97.6 degF March 06, 2023 In-Center Hemodialysis Treatment 3884-02-56N83:35:00.000Z 4738-50-19Q04:36:31.000Z BP Sitting (Pre-Dialysis) 190/83 mmHg BP Sitting (Post-Dialysis) 172/78 mmHg Concurrent Access: falseAV Fistula Upper Arm (Left) Arterial Sitting Heart Rate Pre-Dialysis 78 BPM Sitting H eart Rate Post-Dialysis 79 BPM Temperature Pre-Dialysis 97.2 degF Temperature Post -Dialysis 97.1 degF March 04, 2023 In-Center Hemodialysis Treatment 1538-94-44Z54:47:00.000Z 3679-55-33F90:51:38.000Z BP Sitting (Pre-Dialysis) 149/73 mmHg BP Sitting (Post-Dialysis) 135/60 mmHg Concurrent Access: falseAV Fistula Upper Arm (Left) Arterial Sitting Heart Rate Pre-Dialysis 81 BPM Sitting H eart Rate Post-Dialysis 84 BPM Temperature Pre-Dialysis 97.3 degF Temperature Post -Dialysis 97 degF March 01, 2023 In-Center Hemodialysis Treatment 6270-77-98G47:06:17.000Z 3403-71-94A56:01:17.000Z BP Sitting (Pre-Dialysis) 175/134 mmHg BP Sitting (Post-Dialysis) 164/74 mmHg Concurrent Access: falseAV Fistula Upper Arm (Left) Arterial BP Standing (Pre-Dialysis) 206/87 mmHg Sitti ng Heart Rate Post-Dialysis 82 BPM Sitting Heart Rate Pre-Dialysis 79 BPM Temperatu re Post-Dialysis 97.6 degF Standing Heart Rate Pre-Dialysis 79 BPM Temperature Pre-Dialysis 97.6 degF February 27, 2023 In-Center Hemodialysis Treatment 6177-34-32U04:30:00.000Z 2728-82-74T46:35:16.000Z BP Sitting (Pre-Dialysis) 141/100 mmHg BP Sitting (Post-Dialysis) 165/73 mmHg Concurrent Access: falseAV Fistula Upper Arm (Left) Arterial Sitting Heart Rate Pre-Dialysis 84 BPM Sitting H eart Rate Post-Dialysis 80 BPM Temperature Pre-Dialysis 97.6 degF Temperature Post -Dialysis 97.6 degF February 25, 2023 In-Center Hemodialysis Treatment 6928-52-96F62:00:00.000Z 6108-62-98Z78:01:17.000Z BP Sitting (Pre-Dialysis) 91/56 mmHg BP Sitting (Post-Dialysis) 114/56 mmHg Concurrent Access: falseAV Fistula Upper Arm (Left) Arterial Sitting Heart Rate Pre-Dialysis 72 BPM Sitting H eart Rate Post-Dialysis 73 BPM Temperature Pre-Dialysis 97.6 degF Temperature Post -Dialysis 97.1 degF February 22, 2023 In-Center Hemodialysis Treatment 2684-80-50M72:55:00.000Z 2775-45-80I80:57:27.000Z BP Sitting (Pre-Dialysis) 150/68 mmHg BP Sitting (Post-Dialysis) 163/72 mmHg Concurrent Access: falseAV Fistula Upper Arm (Left) Arterial Sitting Heart Rate Pre-Dialysis 77 BPM Sitting H eart Rate Post-Dialysis 87 BPM Temperature Pre-Dialysis 97.4 degF Temperature Post -Dialysis 97.8 degF February 20, 2023 In-Center Hemodialysis Treatment 7096-05-61O38:42:00.000Z 3255-02-32U80:59:18.000Z BP Sitting (Pre-Dialysis) 119/70 mmHg BP Sitting (Post-Dialysis) 140/69 mmHg Concurrent Access: falseAV Fistula Upper Arm (Left) Arterial Sitting Heart Rate Pre-Dialysis 79 BPM BP Standing (Post-Dialysis) 140/69 mmHg Temperature Pre-Dialysis 97.9 degF Sitting Heart Ra te Post-Dialysis 70 BPM Standing Heart Rate Post-Tamiko lysis 76 BPM Temperature Post-Dialysis 97 .7 degF February 18, 2023 In-Center Hemodialysis Treatment 0911-55-40K42:00:00.000Z 6552-40-30G09:01:37.000Z BP Sitting (Pre-Dialysis) 123/62 mmHg BP Sitting (Post-Dialysis) 115/50 mmHg Concurrent Access: falseAV Fistula Upper Arm (Left) Arterial BP Standing (Pre-Dialysis) 119/56 mmHg BP Standing (P ost-Dialysis) 111/56 mmHg Sitting Heart Rate Pre-Dialysis 76 BPM Sitting Heart Rate Post-Dialysis 78 BPM Standing Heart Rate Pre-Dialysis 78 BPM Standing Heart Rate Post-Dialysis 78 BPM Temperature Pre-Dialysis 97.8 degF Temperature Post -Dialysis 97.8 degF February 15, 2023 In-Center Hemodialysis Treatment 2400-98-82I81:02:00.000Z 4149-98-45F96:01:07.000Z BP Sitting (Pre-Dialysis) 117/59 mmHg BP Sitting (Post-Dialysis) 116/53 mmHg Concurrent Access: falseAV Fistula Upper Arm (Left) Arterial Sitting Heart Rate Pre-Dialysis 77 BPM Sitting H eart Rate Post-Dialysis 73 BPM Temperature Pre-Dialysis 97.6 degF Temperature Post -Dialysis 97.8 degF February 13, 2023 In-Center Hemodialysis Treatment 5654-57-77F94:51:00.000Z 0158-44-47A95:53:22.000Z BP Sitting (Pre-Dialysis) 111/55 mmHg BP Sitting (Post-Dialysis) 100/48 mmHg Concurrent Access: falseAV Fistula Upper Arm (Left) Arterial Sitting Heart Rate Pre-Dialysis 77 BPM Sitting H eart Rate Post-Dialysis 77 BPM Temperature Pre-Dialysis 97.1 degF Temperature Post -Dialysis 97.7 degF February 11, 2023 In-Center Hemodialysis Treatment 5408-57-88G39:54:00.000Z 7437-16-45J32:55:14.000Z BP Sitting (Pre-Dialysis) 149/69 mmHg BP Sitting (Post-Dialysis) 134/56 mmHg Concurrent Access: falseAV Fistula Upper Arm (Left) Arterial Sitting Heart Rate Pre-Dialysis 87 BPM Sitting H eart Rate Post-Dialysis 92 BPM Temperature Pre-Dialysis 97.7 degF Temperature Post -Dialysis 97.3 degF February 08, 2023 In-Center Hemodialysis Treatment 6866-15-78X43:56:00.000Z 6886-12-45D43:59:21.000Z BP Sitting (Pre-Dialysis) 125/61 mmHg BP Sitting (Post-Dialysis) 111/58 mmHg Concurrent Access: falseAV Fistula Upper Arm (Left) Arterial Sitting Heart Rate Pre-Dialysis 79 BPM Sitting H eart Rate Post-Dialysis 72 BPM Temperature Pre-Dialysis 97.8 degF Temperature Post -Dialysis 97 degF February 06, 2023 In-Center Hemodialysis Treatment 1880-00-54B35:00:23.000Z 9832-45-90U29:02:24.000Z BP Sitting (Pre-Dialysis) 124/58 mmHg BP Sitting (Post-Dialysis) 122/55 mmHg Concurrent Access: falseAV Fistula Upper Arm (Left) Arterial Sitting Heart Rate Pre-Dialysis 73 BPM Sitting H eart Rate Post-Dialysis 74 BPM Temperature Pre-Dialysis 97.9 degF Temperature Post -Dialysis 98 degF February 04, 2023 In-Center Hemodialysis Treatment 1100-34-22I02:50:00.000Z 5910-33-74V00:54:21.000Z BP Sitting (Pre-Dialysis) 157/62 mmHg BP Sitting (Post-Dialysis) 131/56 mmHg Concurrent Access: falseAV Fistula Upper Arm (Left) Arterial Sitting Heart Rate Pre-Dialysis 73 BPM Sitting H eart Rate Post-Dialysis 76 BPM Temperature Pre-Dialysis 97.8 degF Temperature Post -Dialysis 97.1 degF February 01, 2023 In-Center Hemodialysis Treatment 4001-53-76W98:54:00.000Z 9440-36-61D03:55:43.000Z BP Sitting (Pre-Dialysis) 143/121 mmHg BP Sitting (Post-Dialysis) 147/77 mmHg Concurrent Access: falseAV Fistula Upper Arm (Left) Arterial Sitting Heart Rate Pre-Dialysis 73 BPM Sitting H eart Rate Post-Dialysis 63 BPM Temperature Pre-Dialysis 97.1 degF Temperature Post -Dialysis 97.8 degF January 30, 2023 In-Center Hemodialysis Treatment 3176-89-77J82:59:00.000Z 0103-38-86W75:59:43.000Z BP Sitting (Pre-Dialysis) 122/57 mmHg BP Sitting (Post-Dialysis) 100/54 mmHg Concurrent Access: falseAV Fistula Upper Arm (Left) Arterial Sitting Heart Rate Pre-Dialysis 76 BPM Sitting H eart Rate Post-Dialysis 77 BPM Temperature Pre-Dialysis 97.9 degF Temperature Post -Dialysis 97.6 degF January 28, 2023 In-Center Hemodialysis Treatment 1919-21-88G22:53:43.000Z 2390-55-20L43:55:43.000Z BP Sitting (Pre-Dialysis) 111/49 mmHg BP Sitting (Post-Dialysis) 116/53 mmHg Concurrent Access: falseAV Fistula Upper Arm (Left) Arterial Sitting Heart Rate Pre-Dialysis 77 BPM Sitting H eart Rate Post-Dialysis 78 BPM Temperature Pre-Dialysis 97 degF Temperature Post -Dialysis 97.6 degF January 25, 2023 In-Center Hemodialysis Treatment 3513-93-51U03:55:00.000Z 0108-89-62G25:59:26.000Z BP Sitting (Pre-Dialysis) 138/59 mmHg BP Sitting (Post-Dialysis) 122/48 mmHg Concurrent Access: falseAV Fistula Upper Arm (Left) Arterial Sitting Heart Rate Pre-Dialysis 77 BPM Sitting H eart Rate Post-Dialysis 79 BPM Temperature Pre-Dialysis 97 degF Temperature Post -Dialysis 97 degF January 23, 2023 In-Center Hemodialysis Treatment 9532-79-41T67:55:26.000Z 9495-67-34O10:57:26.000Z BP Sitting (Pre-Dialysis) 119/69 mmHg BP Sitting (Post-Dialysis) 132/60 mmHg Concurrent Access: falseAV Fistula Upper Arm (Left) Arterial Sitting Heart Rate Pre-Dialysis 81 BPM Sitting H eart Rate Post-Dialysis 76 BPM Temperature Pre-Dialysis 97.3 degF Temperature Post -Dialysis 97.6 degF January 21, 2023 In-Center Hemodialysis Treatment 4018-47-12I03:56:00.000Z 6278-04-34S90:00:26.000Z BP Sitting (Pre-Dialysis) 165/78 mmHg BP Sitting (Post-Dialysis) 174/75 mmHg Concurrent Access: falseAV Fistula Upper Arm (Left) Arterial Sitting Heart Rate Pre-Dialysis 82 BPM Sitting H eart Rate Post-Dialysis 81 BPM Temperature Pre-Dialysis 97.8 degF Temperature Post -Dialysis 97.3 degF January 18, 2023 In-Center Hemodialysis Treatment 1919-10-06P64:55:00.000Z 1326-34-03K88:00:13.000Z BP Sitting (Pre-Dialysis) 141/68 mmHg BP Sitting (Post-Dialysis) 128/68 mmHg Concurrent Access: falseAV Fistula Upper Arm (Left) Arterial Sitting Heart Rate Pre-Dialysis 76 BPM Sitting H eart Rate Post-Dialysis 78 BPM Temperature Pre-Dialysis 97.6 degF Temperature Post -Dialysis 97.8 degF January 16, 2023 In-Center Hemodialysis Treatment 5582-18-96G14:01:00.000Z 2332-96-30K74:03:13.000Z BP Sitting (Pre-Dialysis) 157/69 mmHg BP Sitting (Post-Dialysis) 144/72 mmHg Concurrent Access: falseAV Fistula Upper Arm (Left) Arterial BP Standing (Pre-Dialysis) 146/68 mmHg Sitti ng Heart Rate Post-Dialysis 73 BPM Sitting Heart Rate Pre-Dialysis 77 BPM Temperatu re Post-Dialysis 97.8 degF Standing Heart Rate Pre-Dialysis 81 BPM Temperature Pre-Dialysis 97.5 degF January 14, 2023 In-Center Hemodialysis Treatment 5711-22-91J80:58:00.000Z 3477-87-43G56:00:13.000Z BP Sitting (Pre-Dialysis) 135/74 mmHg BP Sitting (Post-Dialysis) 143/77 mmHg Concurrent Access: falseAV Fistula Upper Arm (Left) Arterial Sitting Heart Rate Pre-Dialysis 68 BPM Sitting H eart Rate Post-Dialysis 80 BPM Temperature Pre-Dialysis 97.2 degF Temperature Post -Dialysis 97.5 degF January 11, 2023 In-Center Hemodialysis Treatment [id number]:51:00.000Z 8005-66-48I95:51:36.000Z BP Sitting (Pre-Dialysis) 197/75 mmHg BP Sitting (Post-Dialysis) 169/69 mmHg Concurrent Access: falseAV Fistula Upper Arm (Left) Arterial Sitting Heart Rate Pre-Dialysis 79 BPM Sitting H eart Rate Post-Dialysis 78 BPM Temperature Pre-Dialysis 97.3 degF Temperature Post -Dialysis 97.5 degF January 09, 2023 In-Center Hemodialysis Treatment [id number]:53:36.000Z 6045-13-84H62:52:36.000Z BP Sitting (Pre-Dialysis) 194/82 mmHg BP Sitting (Post-Dialysis) 138/62 mmHg Concurrent Access: falseAV Fistula Upper Arm (Left) Arterial Sitting Heart Rate Pre-Dialysis 76 BPM Sitting H eart Rate Post-Dialysis 78 BPM Temperature Pre-Dialysis 97.5 degF Temperature Post -Dialysis 97.6 degF January 07, 2023 In-Center Hemodialysis Treatment 1757-11-27H83:51:00.000Z 8965-78-51U17:54:52.000Z BP Sitting (Pre-Dialysis) 185/51 mmHg BP Sitting (Post-Dialysis) 179/71 mmHg Concurrent Access: falseAV Fistula Upper Arm (Left) Arterial Sitting Heart Rate Pre-Dialysis 74 BPM Sitting H eart Rate Post-Dialysis 76 BPM Temperature Pre-Dialysis 97.6 degF Temperature Post -Dialysis 97.2 degF January 04, 2023 In-Center Hemodialysis Treatment [id number]:55:00.000Z 9788-90-84X51:59:11.000Z BP Sitting (Pre-Dialysis) 183/70 mmHg BP Sitting (Post-Dialysis) 181/69 mmHg Concurrent Access: falseAV Fistula Upper Arm (Left) Arterial Sitting Heart Rate Pre-Dialysis 77 BPM Sitting H eart Rate Post-Dialysis 80 BPM Temperature Pre-Dialysis 97.9 degF Temperature Post -Dialysis 97.9 degF January 02, 2023 In-Center Hemodialysis Treatment [id number]:40:00.000Z 7315-15-82V03:42:52.000Z BP Sitting (Pre-Dialysis) 176/74 mmHg BP Sitting (Post-Dialysis) 173/67 mmHg Concurrent Access: falseAV Fistula Upper Arm (Left) Arterial Sitting Heart Rate Pre-Dialysis 75 BPM Sitting H eart Rate Post-Dialysis 75 BPM Temperature Pre-Dialysis 97.2 degF Temperature Post -Dialysis 97 degF December 31, 2022 In-Center Hemodialysis Treatment 9717-60-58C12:52:00.000Z [id number]:54:11.000Z BP Sitting (Pre-Dialysis) 184/80 mmHg BP Sitting (Post-Dialysis) 195/82 mmHg Concurrent Access: falseAV Fistula Upper Arm (Left) Arterial BP Standing (Pre-Dialysis) 176/85 mmHg Sitti ng Heart Rate Post-Dialysis 79 BPM Sitting Heart Rate Pre-Dialysis 81 BPM Temperatu re Post-Dialysis 97.1 degF Standing Heart Rate Pre-Dialysis 75 BPM Temperature Pre-Dialysis 97.9 degF December 28, 2022 In-Center Hemodialysis Treatment 8659-73-45Y14:51:00.000Z 6395-42-98B30:55:53.000Z BP Sitting (Pre-Dialysis) 188/62 mmHg BP Sitting (Post-Dialysis) 165/79 mmHg Concurrent Access: falseAV Fistula Upper Arm (Left) Arterial Sitting Heart Rate Pre-Dialysis 69 BPM Sitting H eart Rate Post-Dialysis 79 BPM Temperature Pre-Dialysis 97.1 degF Temperature Post -Dialysis 97.5 degF December 26, 2022 In-Center Hemodialysis Treatment 450 mL/min 500 mL/min Concurrent Access: false December 24, 2022 In-Center Hemodialysis Treatment 20 23 -0 7- T1 5: 50 :0 0. 00 0Z 20 23 -0 7- 17 T1 8: 53 :4 4. 00 0Z BP Sitting (Pre-Dial ysis) 168/83 mmHg BP Sitting (Post-Tamiko lysis) 171/85 mmHg Concurrent Access: falseAV Fistula Upper Arm (Left) Arterial Sitting Heart Rate Pre-Dialysis 77 BPM Sitting H eart Rate Post-Dialysis 83 BPM Temperature Pre-Dialysis 97.8 degF Temperature Post -Dialysis 97.3 degF December 21, 2022 In-Center Hemodialysis Treatment [id number]:32:00.000Z 5245-92-08X26:02:15.000Z BP Sitting (Pre-Dialysis) 164/55 mmHg BP Sitting (Post-Dialysis) 160/66 mmHg Concurrent Access: falseAV Fistula Upper Arm (Left) Arterial Sitting Heart Rate Pre-Dialysis 81 BPM Sitting H eart Rate Post-Dialysis 79 BPM Temperature Pre-Dialysis 97.6 degF Temperature Post -Dialysis 97.8 degF December 19, 2022 In-Center Hemodialysis Treatment 4620-01-00O33:14:00.000Z 9672-13-11I21:02:15.000Z BP Sitting (Pre-Dialysis) 161/72 mmHg BP Sitting (Post-Dialysis) 157/67 mmHg Concurrent Access: falseAV Fistula Upper Arm (Left) Arterial Sitting Heart Rate Pre-Dialysis 74 BPM Sitting H eart Rate Post-Dialysis 75 BPM Temperature Pre-Dialysis 97.6 degF Temperature Post -Dialysis 97.5 degF December 17, 2022 In-Center Hemodialysis Treatment 4802-53-98Y50:58:00.000Z 1419-03-15F21:00:15.000Z BP Sitting (Pre-Dialysis) 158/65 mmHg BP Sitting (Post-Dialysis) 153/46 mmHg Concurrent Access: falseAV Fistula Upper Arm (Left) Arterial Sitting Heart Rate Pre-Dialysis 77 BPM Sitting H eart Rate Post-Dialysis 81 BPM Temperature Pre-Dialysis 97.6 degF Temperature Post -Dialysis 97.1 degF December 14, 2022 In-Center Hemodialysis Treatment [id number]:36:00.000Z 1132-48-77Q43:35:40.000Z BP Sitting (Pre-Dialysis) 149/65 mmHg BP Sitting (Post-Dialysis) 144/63 mmHg Concurrent Access: falseAV Fistula Upper Arm (Left) Arterial Sitting Heart Rate Pre-Dialysis 77 BPM Sitting H eart Rate Post-Dialysis 69 BPM Temperature Pre-Dialysis 97.5 degF Temperature Post -Dialysis 97.4 degF December 12, 2022 In-Center Hemodialysis Treatment 0464-63-11Y93:54:00.000Z 5638-81-16V43:58:40.000Z BP Sitting (Pre-Dialysis) 203/81 mmHg BP Sitting (Post-Dialysis) 188/75 mmHg Concurrent Access: falseAV Fistula Upper Arm (Left) Arterial Sitting Heart Rate Pre-Dialysis 88 BPM Sitting H eart Rate Post-Dialysis 86 BPM Temperature Pre-Dialysis 97.7 degF Temperature Post -Dialysis 97.3 degF December 10, 2022 In-Center Hemodialysis Treatment 1783-73-08E10:01:00.000Z 0496-35-66H17:23:40.000Z BP Sitting (Pre-Dialysis) 153/66 mmHg BP Sitting (Post-Dialysis) 130/60 mmHg Concurrent Access: falseAV Fistula Upper Arm (Left) Arterial Sitting Heart Rate Pre-Dialysis 81 BPM Sitting H eart Rate Post-Dialysis 75 BPM Temperature Pre-Dialysis 97.6 degF Temperature Post -Dialysis 97.7 degF December 07, 2022 In-Center Hemodialysis Treatment 4839-62-29M33:48:00.000Z 3230-76-34K97:51:47.000Z BP Sitting (Pre-Dialysis) 162/59 mmHg BP Sitting (Post-Dialysis) 153/53 mmHg Concurrent Access: falseAV Fistula Upper Arm (Left) Arterial Sitting Heart Rate Pre-Dialysis 76 BPM Sitting H eart Rate Post-Dialysis 75 BPM Temperature Pre-Dialysis 97 degF Temperature Post -Dialysis 97.8 degF December 05, 2022 In-Center Hemodialysis Treatment 6806-01-66H66:06:25.000Z 8667-21-87X24:06:25.000Z BP Sitting (Pre-Dialysis) 218/90 mmHg BP Sitting (Post-Dialysis) 225/93 mmHg Concurrent Access: falseAV Fistula Upper Arm (Left) Arterial BP Standing (Pre-Dialysis) 225/87 mmHg Sitti ng Heart Rate Post-Dialysis 73 BPM Sitting Heart Rate Pre-Dialysis 75 BPM Temperatu re Post-Dialysis 97.4 degF Standing Heart Rate Pre-Dialysis 73 BPM Temperature Pre-Dialysis 97.6 degF December 03, 2022 In-Center Hemodialysis Treatment 5786-08-21S11:57:00.000Z 3670-46-38P08:02:47.000Z BP Sitting (Pre-Dialysis) 201/93 mmHg BP Sitting (Post-Dialysis) 226/87 mmHg Concurrent Access: falseAV Fistula Upper Arm (Left) Arterial Sitting Heart Rate Pre-Dialysis 77 BPM Sitting H eart Rate Post-Dialysis 76 BPM Temperature Pre-Dialysis 97.6 degF Temperature Post -Dialysis 98.1 degF November 30, 2022 In-Center Hemodialysis Treatment 0398-19-06J06:04:00.000Z 4585-66-77L58:09:14.000Z BP Sitting (Pre-Dialysis) 220/93 mmHg BP Sitting (Post-Dialysis) 208/88 mmHg Concurrent Access: falseAV Fistula Upper Arm (Left) Arterial Sitting Heart Rate Pre-Dialysis 75 BPM Sitting H eart Rate Post-Dialysis 76 BPM Temperature Pre-Dialysis 97.6 degF Temperature Post -Dialysis 97.4 degF November 28, 2022 In-Center Hemodialysis Treatment 4142-69-44V06:56:14.000Z 7568-58-52W91:55:14.000Z BP Sitting (Pre-Dialysis) 196/88 mmHg BP Sitting (Post-Dialysis) 236/96 mmHg Concurrent Access: falseAV Fistula Upper Arm (Left) Arterial Sitting Heart Rate Pre-Dialysis 75 BPM Sitting H eart Rate Post-Dialysis 73 BPM Temperature Pre-Dialysis 97.3 degF Temperature Post -Dialysis 97.2 degF November 26, 2022 In-Center Hemodialysis Treatment [id number]:56:00.000Z 6071-54-83G91:00:13.000Z BP Sitting (Pre-Dialysis) 204/85 mmHg BP Sitting (Post-Dialysis) 216/84 mmHg Concurrent Access: falseAV Fistula Upper Arm (Left) Arterial Sitting Heart Rate Pre-Dialysis 72 BPM Sitting H eart Rate Post-Dialysis 73 BPM Temperature Pre-Dialysis 98.8 degF Temperature Post -Dialysis 97.3 degF November 23, 2022 In-Center Hemodialysis Treatment 7301-49-60G07:55:00.000Z 7649-24-44N90:00:13.000Z BP Sitting (Pre-Dialysis) 212/89 mmHg BP Sitting (Post-Dialysis) 226/97 mmHg Concurrent Access: falseAV Fistula Upper Arm (Left) Arterial BP Standing (Pre-Dialysis) 211/79 mmHg Sitti ng Heart Rate Post-Dialysis 76 BPM Sitting Heart Rate Pre-Dialysis 76 BPM Temperatu re Post-Dialysis 97.9 degF Standing Heart Rate Pre-Dialysis 77 BPM Temperature Pre-Dialysis 99 degF November 21, 2022 In-Center Hemodialysis Treatment 8699-96-31V65:49:00.000Z 4310-69-39K36:54:18.000Z BP Sitting (Pre-Dialysis) 209/84 mmHg BP Sitting (Post-Dialysis) 220/89 mmHg Concurrent Access: falseAV Fistula Upper Arm (Left) Arterial BP Standing (Pre-Dialysis) 212/89 mmHg BP Standing (P ost-Dialysis) 190/88 mmHg Sitting Heart Rate Pre-Dialysis 84 BPM Sitting Heart Rate Post-Dialysis 82 BPM Standing Heart Rate Pre-Dialysis 84 BPM Standing Heart Rate Post-Dialysis 90 BPM Temperature Pre-Dialysis 97.8 degF Temperature Post -Dialysis 97.6 degF November 19, 2022 In-Center Hemodialysis Treatment 9066-52-25J59:29:18.000Z 9246-54-28O65:09:18.000Z BP Sitting (Pre-Dialysis) 185/94 mmHg BP Sitting (Post-Dialysis) 182/68 mmHg Concurrent Access: falseAV Fistula Upper Arm (Left) Arterial BP Standing (Pre-Dialysis) 170/79 mmHg BP Standing (P ost-Dialysis) 174/65 mmHg Sitting Heart Rate Pre-Dialysis 84 BPM Sitting Heart Rate Post-Dialysis 82 BPM Standing Heart Rate Pre-Dialysis 84 BPM Standing Heart Rate Post-Dialysis 84 BPM Temperature Pre-Dialysis 97.3 degF Temperature Post -Dialysis 97.7 degF November 16, 2022 In-Center Hemodialysis Treatment 450 mL/min 500 mL/min Concurrent Access: false November 14, 2022 In-Center Hemodialysis Treatment 20 23 -0 6- 07 T1 0: 56 :5 1. 00 0Z 20 23 -0 6- 07 T1 3: 56 :5 2. 00 0Z BP Sitting (Pre-Dial ysis) 178/75 mmHg BP Sitting (Post-Tamiko lysis) 139/62 mmHg Concurrent Access: falseAV Fistula Upper Arm (Left) Arterial BP Standing (Pre-Dialysis) 179/78 mmHg BP Standing (P ost-Dialysis) 139/62 mmHg Sitting Heart Rate Pre-Dialysis 82 BPM Sitting Heart Rate Post-Dialysis 78 BPM Standing Heart Rate Pre-Dialysis 84 BPM Standing Heart Rate Post-Dialysis 77 BPM Temperature Pre-Dialysis 97.8 degF Temperature Post -Dialysis 97.2 degF November 12, 2022 In-Center Hemodialysis Treatment 7019-23-29D02:49:00.000Z 7551-32-49G08:56:52.000Z BP Sitting (Pre-Dialysis) 188/77 mmHg BP Sitting (Post-Dialysis) 178/75 mmHg Concurrent Access: falseAV Fistula Upper Arm (Left) Arterial Sitting Heart Rate Pre-Dialysis 85 BPM Sitting H eart Rate Post-Dialysis 88 BPM Temperature Pre-Dialysis 97.7 degF Temperature Post -Dialysis 97 degF November 09, 2022 In-Center Hemodialysis Treatment 2355-15-46W80:04:15.000Z 3839-74-80U15:05:15.000Z BP Sitting (Pre-Dialysis) 166/66 mmHg BP Sitting (Post-Dialysis) 158/83 mmHg Concurrent Access: falseAV Fistula Upper Arm (Left) Arterial Sitting Heart Rate Pre-Dialysis 73 BPM BP Standing (Post-Dialysis) 160/68 mmHg Temperature Pre-Dialysis 97.6 degF Sitting Heart Ra te Post-Dialysis 76 BPM Standing Heart Rate Post-Tamiko lysis 75 BPM Temperature Post-Dialysis 97 .3 degF November 05, 2022 In-Center Hemodialysis Treatment 4126-77-01A30:03:00.000Z 8057-24-71J90:00:15.000Z BP Sitting (Pre-Dialysis) 189/87 mmHg BP Sitting (Post-Dialysis) 201/90 mmHg Concurrent Access: falseAV Fistula Upper Arm (Left) Arterial Sitting Heart Rate Pre-Dialysis 78 BPM BP Standing (Post-Dialysis) 199/89 mmHg Temperature Pre-Dialysis 97.8 degF Sitting Heart Ra te Post-Dialysis 77 BPM Standing Heart Rate Post-Tamiko lysis 78 BPM Temperature Post-Dialysis 97 .4 degF November 02, 2022 In-Center Hemodialysis Treatment 8688-27-98M48:59:14.000Z 3809-46-50S27:00:14.000Z BP Sitting (Pre-Dialysis) 206/81 mmHg BP Sitting (Post-Dialysis) 191/52 mmHg Concurrent Access: falseAV Fistula Upper Arm (Left) Arterial Sitting Heart Rate Pre-Dialysis 84 BPM BP Standing (Post-Dialysis) 201/83 mmHg Temperature Pre-Dialysis 97.9 degF Sitting Heart Ra te Post-Dialysis 81 BPM Standing Heart Rate Post-Tamiko lysis 80 BPM Temperature Post-Dialysis 97 .3 degF October 31, 2022 In-Center Hemodialysis Treatment 0354-84-52U15:00:00.000Z 3650-86-30Z52:01:14.000Z BP Sitting (Pre-Dialysis) 186/69 mmHg BP Sitting (Post-Dialysis) 180/65 mmHg Concurrent Access: falseAV Fistula Upper Arm (Left) Arterial BP Standing (Pre-Dialysis) 194/51 mmHg Sitti ng Heart Rate Post-Dialysis 76 BPM Sitting Heart Rate Pre-Dialysis 75 BPM Temperatu re Post-Dialysis 97.9 degF Standing Heart Rate Pre-Dialysis 76 BPM Temperature Pre-Dialysis 97.8 degF October 29, 2022 In-Center Hemodialysis Treatment 450 mL/min 500 mL/min Concurrent Access: false October 26, 2022 In-Center Hemodialysis Treatment 20 -0 - T1 1: 26 :0 0. 00 0Z 20 -0 T1 3: 59 :1 5. 00 0Z BP Sitting (Pre-Dial ysis) 161/59 mmHg BP Sitting (Post-Tamiko lysis) 156/63 mmHg Concurrent Access: falseAV Fistula Upper Arm (Left) Arterial Sitting Heart Rate Pre-Dialysis 82 BPM BP Standing (Post-Dialysis) 152/71 mmHg Temperature Pre-Dialysis 97.6 degF Sitting Heart Ra te Post-Dialysis 80 BPM Standing Heart Rate Post-Tamiko lysis 81 BPM Temperature Post-Dialysis 97 .4 degF October 24, 2022 In-Center Hemodialysis Treatment 7624-93-33V58:12:00.000Z 4049-18-23C46:02:00.000Z BP Sitting (Pre-Dialysis) 182/76 mmHg BP Sitting (Post-Dialysis) 199/76 mmHg Concurrent Access: falseAV Fistula Upper Arm (Left) Arterial Sitting Heart Rate Pre-Dialysis 82 BPM Sitting H eart Rate Post-Dialysis 81 BPM Temperature Pre-Dialysis 97.6 degF Temperature Post -Dialysis 97.3 degF October 22, 2022 In-Center Hemodialysis Treatment 9854-45-68Z29:00:19.000Z 9647-45-73W34:00:19.000Z BP Sitting (Pre-Dialysis) 214/84 mmHg BP Sitting (Post-Dialysis) 189/72 mmHg Concurrent Access: falseAV Fistula Upper Arm (Left) Arterial Sitting Heart Rate Pre-Dialysis 81 BPM Sitting H eart Rate Post-Dialysis 66 BPM Temperature Pre-Dialysis 97.9 degF Temperature Post -Dialysis 97.7 degF October 19, 2022 In-Center Hemodialysis Treatment 2016-51-14G68:58:00.000Z 1200-05-98L76:59:07.000Z BP Sitting (Pre-Dialysis) 173/74 mmHg BP Sitting (Post-Dialysis) 175/59 mmHg Concurrent Access: falseAV Fistula Upper Arm (Left) Arterial Sitting Heart Rate Pre-Dialysis 75 BPM Sitting H eart Rate Post-Dialysis 77 BPM Temperature Pre-Dialysis 97.8 degF Temperature Post -Dialysis 97.3 degF October 17, 2022 In-Center Hemodialysis Treatment 8815-27-06H00:07:00.000Z 9933-70-26B72:11:07.000Z BP Sitting (Pre-Dialysis) 149/62 mmHg BP Sitting (Post-Dialysis) 150/59 mmHg Concurrent Access: falseAV Fistula Upper Arm (Left) Arterial Sitting Heart Rate Pre-Dialysis 75 BPM Sitting H eart Rate Post-Dialysis 73 BPM Temperature Pre-Dialysis 97.8 degF Temperature Post -Dialysis 97.9 degF October 12, 2022 In-Center Hemodialysis Treatment 0801-57-30E50:03:00.000Z 2214-32-21M10:04:08.000Z BP Sitting (Pre-Dialysis) 164/66 mmHg BP Sitting (Post-Dialysis) 166/65 mmHg Concurrent Access: falseAV Fistula Upper Arm (Left) Arterial Sitting Heart Rate Pre-Dialysis 80 BPM Sitting H eart Rate Post-Dialysis 77 BPM Temperature Pre-Dialysis 97.6 degF Temperature Post -Dialysis 97.9 degF October 10, 2022 In-Center Hemodialysis Treatment 5156-09-14Q96:31:11.000Z 2934-33-51D90:33:11.000Z BP Sitting (Pre-Dialysis) 164/67 mmHg BP Sitting (Post-Dialysis) 176/57 mmHg Concurrent Access: falseAV Fistula Upper Arm (Left) Arterial Sitting Heart Rate Pre-Dialysis 79 BPM Sitting H eart Rate Post-Dialysis 83 BPM Temperature Pre-Dialysis 97.8 degF Temperature Post -Dialysis 97.5 degF October 08, 2022 In-Center Hemodialysis Treatment 450 mL/min 500 mL/min Concurrent Access: false October 05, 2022 In-Center Hemodialysis Treatment 20 23 -0 4- T1 2: 56 :0 0. 00 0Z 20 23 -0 4- 28 T1 5: 57 :0 9. 00 0Z BP Sitting (Pre-Dial ysis) 158/45 mmHg BP Sitting (Post-Tamiko lysis) 159/67 mmHg Concurrent Access: falseAV Fistula Upper Arm (Left) Arterial Sitting Heart Rate Pre-Dialysis 76 BPM Sitting H eart Rate Post-Dialysis 83 BPM Temperature Pre-Dialysis 96.5 degF Temperature Post -Dialysis 97.9 degF October 03, 2022 In-Center Hemodialysis Treatment 3306-63-35J69:03:00.000Z 5954-33-42V82:05:09.000Z BP Sitting (Pre-Dialysis) 188/82 mmHg BP Sitting (Post-Dialysis) 200/88 mmHg Concurrent Access: falseAV Fistula Upper Arm (Left) Arterial BP Standing (Pre-Dialysis) 177/77 mmHg Sitti ng Heart Rate Post-Dialysis 83 BPM Sitting Heart Rate Pre-Dialysis 83 BPM Temperatu re Post-Dialysis 98.6 degF Standing Heart Rate Pre-Dialysis 85 BPM Temperature Pre-Dialysis 98.1 degF October 01, 2022 In-Center Hemodialysis Treatment 1620-17-90M20:05:00.000Z 6213-32-54F23:08:09.000Z BP Sitting (Pre-Dialysis) 189/64 mmHg BP Sitting (Post-Dialysis) 171/70 mmHg Concurrent Access: falseAV Fistula Upper Arm (Left) Arterial Sitting Heart Rate Pre-Dialysis 75 BPM Sitting H eart Rate Post-Dialysis 75 BPM Temperature Pre-Dialysis 97.5 degF Temperature Post -Dialysis 96.8 degF September 28, 2022 In-Center Hemodialysis Treatment 5778-14-48X38:14:00.000Z 2151-35-25U48:02:49.000Z BP Sitting (Pre-Dialysis) 155/69 mmHg BP Sitting (Post-Dialysis) 168/69 mmHg Concurrent Access: falseAV Fistula Upper Arm (Left) Arterial Sitting Heart Rate Pre-Dialysis 78 BPM Sitting H eart Rate Post-Dialysis 79 BPM Temperature Pre-Dialysis 97.6 degF Temperature Post -Dialysis 97.4 degF September 26, 2022 In-Center Hemodialysis Treatment 2389-57-01D64:12:00.000Z 5547-09-11B74:17:49.000Z BP Sitting (Pre-Dialysis) 170/76 mmHg BP Sitting (Post-Dialysis) 174/73 mmHg Concurrent Access: falseAV Fistula Upper Arm (Left) Arterial BP Standing (Pre-Dialysis) 179/85 mmHg Sitting Heart Rate Post-Dialysis 83 BPM Sitting Heart Rate Pre-Dialysis 79 BPM Temperatu re Post-Dialysis 97 degF Standing Heart Rate Pre-Dialysis 80 BPM Temperature Pre-Dialysis 98.6 degF September 21, 2022 In-Center Hemodialysis Treatment 1424-55-94Z56:22:00.000Z 9564-23-39S33:24:09.000Z BP Sitting (Pre-Dialysis) 158/62 mmHg BP Sitting (Post-Dialysis) 170/72 mmHg Concurrent Access: falseAV Fistula Upper Arm (Left) Arterial BP Standing (Pre-Dialysis) 142/43 mmHg Sitti ng Heart Rate Post-Dialysis 79 BPM Sitting Heart Rate Pre-Dialysis 81 BPM Temperatu re Post-Dialysis 98.5 degF Standing Heart Rate Pre-Dialysis 86 BPM Temperature Pre-Dialysis 97.3 degF September 19, 2022 In-Center Hemodialysis Treatment 5090-87-75T28:23:00.000Z 3754-50-19A13:29:09.000Z BP Sitting (Pre-Dialysis) 154/67 mmHg BP Sitting (Post-Dialysis) 155/67 mmHg Concurrent Access: falseAV Fistula Upper Arm (Left) Arterial Sitting Heart Rate Pre-Dialysis 80 BPM Sitting H eart Rate Post-Dialysis 79 BPM Temperature Pre-Dialysis 97.4 degF Temperature Post -Dialysis 98.7 degF September 17, 2022 In-Center Hemodialysis Treatment 7135-64-92D89:21:00.000Z 9280-58-86I09:25:09.000Z BP Sitting (Pre-Dialysis) 171/61 mmHg BP Sitting (Post-Dialysis) 173/76 mmHg Concurrent Access: falseAV Fistula Upper Arm (Left) Arterial BP Standing (Pre-Dialysis) 182/58 mmHg Sitting Heart Rate Post-Dialysis 63 BPM Sitting Heart Rate Pre-Dialysis 87 BPM Temperatu re Post-Dialysis 98 degF Standing Heart Rate Pre-Dialysis 92 BPM Temperature Pre-Dialysis 98.1 degF September 12, 2022 In-Center Hemodialysis Treatment 6531-07-94N73:21:00.000Z 2932-68-02S35:24:17.000Z BP Sitting (Pre-Dialysis) 214/93 mmHg BP Sitting (Post-Dialysis) 186/93 mmHg Concurrent Access: falseAV Fistula Upper Arm (Left) Arterial Sitting Heart Rate Pre-Dialysis 86 BPM Sitting H eart Rate Post-Dialysis 79 BPM Temperature Pre-Dialysis 97.5 degF Temperature Post -Dialysis 97.5 degF September 10, 2022 In-Center Hemodialysis Treatment 1531-22-21C34:29:00.000Z 2330-53-96L17:32:17.000Z BP Sitting (Pre-Dialysis) 216/96 mmHg BP Sitting (Post-Dialysis) 199/86 mmHg Concurrent Access: falseAV Fistula Upper Arm (Left) Arterial Sitting Heart Rate Pre-Dialysis 85 BPM Sitting H eart Rate Post-Dialysis 81 BPM Temperature Pre-Dialysis 97.6 degF Temperature Post -Dialysis 97.8 degF September 07, 2022 In-Center Hemodialysis Treatment 6219-42-98F81:22:00.000Z 6802-48-80L85:24:18.000Z BP Sitting (Pre-Dialysis) 188/85 mmHg BP Sitting (Post-Dialysis) 186/75 mmHg Concurrent Access: falseAV Fistula Upper Arm (Left) Arterial Sitting Heart Rate Pre-Dialysis 86 BPM Sitting H eart Rate Post-Dialysis 83 BPM Temperature Pre-Dialysis 98.4 degF Temperature Post -Dialysis 97.8 degF September 05, 2022 In-Center Hemodialysis Treatment 7225-08-88B92:22:00.000Z 3773-12-85C42:23:19.000Z BP Sitting (Pre-Dialysis) 186/77 mmHg BP Sitting (Post-Dialysis) 184/76 mmHg Concurrent Access: falseAV Fistula Upper Arm (Left) Arterial Sitting Heart Rate Pre-Dialysis 77 BPM Sitting H eart Rate Post-Dialysis 77 BPM Temperature Pre-Dialysis 97.6 degF Temperature Post -Dialysis 97.7 degF September 03, 2022 In-Center Hemodialysis Treatment 8893-54-87T66:22:00.000Z 1069-91-62W00:25:14.000Z BP Sitting (Pre-Dialysis) 180/65 mmHg BP Sitting (Post-Dialysis) 180/74 mmHg Concurrent Access: falseAV Fistula Upper Arm (Left) Arterial Sitting Heart Rate Pre-Dialysis 86 BPM Sitting H eart Rate Post-Dialysis 82 BPM Temperature Pre-Dialysis 96.7 degF Temperature Post -Dialysis 97.9 degF August 31, 2022 In-Center Hemodialysis Treatment 6573-19-01I34:25:00.000Z 6281-49-30L48:27:43.000Z BP Sitting (Pre-Dialysis) 165/67 mmHg BP Sitting (Post-Dialysis) 179/75 mmHg Concurrent Access: falseAV Fistula Upper Arm (Left) Arterial Sitting Heart Rate Pre-Dialysis 83 BPM Sitting H eart Rate Post-Dialysis 81 BPM Temperature Pre-Dialysis 97.9 degF Temperature Post -Dialysis 97.3 degF August 29, 2022 In-Center Hemodialysis Treatment 6398-79-45T25:22:00.000Z 6736-15-83D51:23:43.000Z BP Sitting (Pre-Dialysis) 143/58 mmHg BP Sitting (Post-Dialysis) 165/72 mmHg Concurrent Access: falseAV Fistula Upper Arm (Left) Arterial Sitting Heart Rate Pre-Dialysis 82 BPM Sitting H eart Rate Post-Dialysis 82 BPM Temperature Pre-Dialysis 98.1 degF Temperature Post -Dialysis 97.9 degF August 27, 2022 In-Center Hemodialysis Treatment 1939-57-48I41:20:00.000Z 4168-84-89K06:22:36.000Z BP Sitting (Pre-Dialysis) 186/92 mmHg BP Sitting (Post-Dialysis) 171/67 mmHg Concurrent Access: falseAV Fistula Upper Arm (Left) Arterial BP Standing (Pre-Dialysis) 186/76 mmHg Sitti ng Heart Rate Post-Dialysis 80 BPM Sitting Heart Rate Pre-Dialysis 84 BPM Temperatu re Post-Dialysis 97.9 degF Standing Heart Rate Pre-Dialysis 83 BPM Temperature Pre-Dialysis 97.3 degF August 24, 2022 In-Center Hemodialysis Treatment 9501-76-87H55:23:00.000Z 3975-89-20Z94:26:29.000Z BP Sitting (Pre-Dialysis) 177/86 mmHg BP Sitting (Post-Dialysis) 190/83 mmHg Concurrent Access: falseAV Fistula Upper Arm (Left) Arterial Sitting Heart Rate Pre-Dialysis 84 BPM Sitting H eart Rate Post-Dialysis 84 BPM Temperature Pre-Dialysis 97.8 degF Temperature Post -Dialysis 97.9 degF August 22, 2022 In-Center Hemodialysis Treatment 6303-34-42Y64:30:00.000Z 7641-23-50B47:31:43.000Z BP Sitting (Pre-Dialysis) 130/66 mmHg BP Sitting (Post-Dialysis) 179/73 mmHg Concurrent Access: falseAV Fistula Upper Arm (Left) Arterial BP Standing (Pre-Dialysis) 163/54 mmHg Sitti ng Heart Rate Post-Dialysis 82 BPM Sitting Heart Rate Pre-Dialysis 79 BPM Temperatu re Post-Dialysis 96.9 degF Standing Heart Rate Pre-Dialysis 84 BPM Temperature Pre-Dialysis 97 degF August 20, 2022 In-Center Hemodialysis Treatment 4065-75-57O25:25:00.000Z 6029-11-88R89:26:43.000Z BP Sitting (Pre-Dialysis) 170/58 mmHg BP Sitting (Post-Dialysis) 177/72 mmHg Concurrent Access: falseAV Fistula Upper Arm (Left) Arterial BP Standing (Pre-Dialysis) 131/58 mmHg Sitti ng Heart Rate Post-Dialysis 73 BPM Sitting Heart Rate Pre-Dialysis 77 BPM Temperatu re Post-Dialysis 98.1 degF Standing Heart Rate Pre-Dialysis 82 BPM Temperature Pre-Dialysis 97.3 degF August 17, 2022 In-Center Hemodialysis Treatment 7923-20-66E44:37:00.000Z 6069-24-97G42:39:09.000Z BP Sitting (Pre-Dialysis) 144/48 mmHg BP Sitting (Post-Dialysis) 172/75 mmHg Concurrent Access: falseAV Fistula Upper Arm (Left) Arterial BP Standing (Pre-Dialysis) 144/66 mmHg Sitting Heart Rate Post-Dialysis 79 BPM Sitting Heart Rate Pre-Dialysis 76 BPM Temperatu re Post-Dialysis 98 degF Standing Heart Rate Pre-Dialysis 77 BPM Temperature Pre-Dialysis 98.6 degF August 13, 2022 In-Center Hemodialysis Treatment [id number]:24:00.000Z [id number]:30:08.000Z BP Sitting (Pre-Dialysis) 176/77 mmHg BP Sitting (Post-Dialysis) 180/75 mmHg Concurrent Access: falseAV Fistula Upper Arm (Left) Arterial BP Standing (Pre-Dialysis) 164/70 mmHg Sitti ng Heart Rate Post-Dialysis 81 BPM Sitting Heart Rate Pre-Dialysis 89 BPM Temperatu re Post-Dialysis 97.7 degF Standing Heart Rate Pre-Dialysis 85 BPM Temperature Pre-Dialysis 97.3 degF August 10, 2022 In-Center Hemodialysis Treatment [id number]:41:00.000Z [id number]:45:09.000Z BP Sitting (Pre-Dialysis) 153/70 mmHg BP Sitting (Post-Dialysis) 158/71 mmHg Concurrent Access: falseAV Fistula Upper Arm (Left) Arterial BP Standing (Pre-Dialysis) 159/59 mmHg Sitti ng Heart Rate Post-Dialysis 85 BPM Sitting Heart Rate Pre-Dialysis 84 BPM Temperatu re Post-Dialysis 97.2 degF Standing Heart Rate Pre-Dialysis 84 BPM Temperature Pre-Dialysis 97.2 degF August 08, 2022 In-Center Hemodialysis Treatment [id number]:18:00.000Z [id number]:21:08.000Z BP Sitting (Pre-Dialysis) 170/70 mmHg BP Sitting (Post-Dialysis) 154/59 mmHg Concurrent Access: falseAV Fistula Upper Arm (Left) Arterial Sitting Heart Rate Pre-Dialysis 79 BPM Sitting H eart Rate Post-Dialysis 78 BPM Temperature Pre-Dialysis 96.3 degF Temperature Post -Dialysis 97 degF August 06, 2022 In-Center Hemodialysis Treatment [id number]:24:00.000Z [id number]:30:57.000Z BP Sitting (Pre-Dialysis) 155/58 mmHg BP Sitting (Post-Dialysis) 170/55 mmHg Concurrent Access: falseAV Fistula Upper Arm (Left) Arterial Sitting Heart Rate Pre-Dialysis 80 BPM Sitting H eart Rate Post-Dialysis 76 BPM Temperature Pre-Dialysis 97.7 degF Temperature Post -Dialysis 97.7 degF August 03, 2022 In-Center Hemodialysis Treatment [id number]:10:00.000Z [id number]:15:30.000Z BP Sitting (Pre-Dialysis) 154/70 mmHg BP Sitting (Post-Dialysis) 170/70 mmHg Concurrent Access: falseAV Fistula Upper Arm (Left) Arterial BP Standing (Pre-Dialysis) 152/55 mmHg Sitti ng Heart Rate Post-Dialysis 76 BPM Sitting Heart Rate Pre-Dialysis 78 BPM Temperatu re Post-Dialysis 98.1 degF Standing Heart Rate Pre-Dialysis 80 BPM Temperature Pre-Dialysis 98.2 degF August 01, 2022 In-Center Hemodialysis Treatment [id number]:30:00.000Z [id number]:40:30.000Z BP Sitting (Pre-Dialysis) 169/66 mmHg BP Sitting (Post-Dialysis) 151/63 mmHg Concurrent Access: falseAV Fistula Upper Arm (Left) Arterial BP Standing (Pre-Dialysis) 157/70 mmHg Sitti ng Heart Rate Post-Dialysis 79 BPM Sitting Heart Rate Pre-Dialysis 79 BPM Temperatu re Post-Dialysis 97.4 degF Standing Heart Rate Pre-Dialysis 84 BPM Temperature Pre-Dialysis 97.4 degF July 30, 2022 In-Center Hemodialysis Treatment [id number]:27:00.000Z [id number]:26:30.000Z BP Sitting (Pre-Dialysis) 168/64 mmHg BP Sitting (Post-Dialysis) 179/72 mmHg Concurrent Access: falseAV Fistula Upper Arm (Left) Arterial BP Standing (Pre-Dialysis) 164/59 mmHg Sitti ng Heart Rate Post-Dialysis 79 BPM Sitting Heart Rate Pre-Dialysis 81 BPM Temperatu re Post-Dialysis 97.7 degF Standing Heart Rate Pre-Dialysis 84 BPM Temperature Pre-Dialysis 97.2 degF July 27, 2022 In-Center Hemodialysis Treatment [id number]:30:00.000Z [id number]:32:58.000Z BP Sitting (Pre-Dialysis) 179/75 mmHg BP Sitting (Post-Dialysis) 179/74 mmHg Concurrent Access: falseAV Fistula Upper Arm (Left) Arterial BP Standing (Pre-Dialysis) 138/39 mmHg Sitti ng Heart Rate Post-Dialysis 80 BPM Sitting Heart Rate Pre-Dialysis 78 BPM Temperatu re Post-Dialysis 97.8 degF Standing Heart Rate Pre-Dialysis 81 BPM Temperature Pre-Dialysis 97.5 degF July 25, 2022 In-Center Hemodialysis Treatment [id number]:39:50.000Z [id number]:39:50.000Z BP Sitting (Pre-Dialysis) 170/69 mmHg BP Sitting (Post-Dialysis) 181/81 mmHg Concurrent Access: falseAV Fistula Upper Arm (Left) Arterial Sitting Heart Rate Pre-Dialysis 82 BPM Sitting H eart Rate Post-Dialysis 82 BPM Temperature Pre-Dialysis 98.2 degF Temperature Post -Dialysis 97.9 degF July 23, 2022 In-Center Hemodialysis Treatment [id number]:37:51.000Z [id number]:38:50.000Z BP Sitting (Pre-Dialysis) 157/45 mmHg BP Sitting (Post-Dialysis) 169/70 mmHg Concurrent Access: falseAV Fistula Upper Arm (Left) Arterial Sitting Heart Rate Pre-Dialysis 87 BPM Sitting H eart Rate Post-Dialysis 78 BPM Temperature Pre-Dialysis 97.6 degF Temperature Post -Dialysis 97.7 degF July 20, 2022 In-Center Hemodialysis Treatment [id number]:22:00.000Z [id number]:29:31.000Z BP Sitting (Pre-Dialysis) 186/83 mmHg BP Sitting (Post-Dialysis) 164/61 mmHg Concurrent Access: falseAV Fistula Upper Arm (Left) Arterial BP Standing (Pre-Dialysis) 205/96 mmHg Sitti ng Heart Rate Post-Dialysis 87 BPM Sitting Heart Rate Pre-Dialysis 81 BPM Temperatu re Post-Dialysis 97.4 degF Standing Heart Rate Pre-Dialysis 83 BPM Temperature Pre-Dialysis 97.7 degF July 18, 2022 In-Center Hemodialysis Treatment [id number]:19:00.000Z [id number]:22:31.000Z BP Sitting (Pre-Dialysis) 189/86 mmHg BP Sitting (Post-Dialysis) 202/88 mmHg Concurrent Access: falseAV Fistula Upper Arm (Left) Arterial BP Standing (Pre-Dialysis) 207/104 mmHg Sitting Heart Rate Post-Dialysis 82 BPM Sitting Heart Rate Pre-Dialysis 81 BPM Standing Heart Rate Pre-Dialysis 83 BPM Temperature Pre-Dialysis 96.9 degF July 16, 2022 In-Center Hemodialysis Treatment [id number]:20:00.000Z [id number]:17:31.000Z BP Sitting (Pre-Dialysis) 176/80 mmHg BP Sitting (Post-Dialysis) 187/86 mmHg Concurrent Access: falseAV Fistula Upper Arm (Left) Arterial BP Standing (Pre-Dialysis) 175/82 mmHg Sitting Heart Rate Post-Dialysis 80 BPM Sitting Heart Rate Pre-Dialysis 79 BPM Temperatu re Post-Dialysis 97 degF Standing Heart Rate Pre-Dialysis 83 BPM Temperature Pre-Dialysis 97.8 degF July 13, 2022 In-Center Hemodialysis Treatment [id number]:32:00.000Z [id number]:23:17.000Z BP Sitting (Pre-Dialysis) 184/80 mmHg BP Sitting (Post-Dialysis) 194/84 mmHg Concurrent Access: falseAV Fistula Upper Arm (Left) Arterial Sitting Heart Rate Pre-Dialysis 83 BPM BP Standi ng (Post-Dialysis) 218/75 mmHg Temperature Pre-Dialysis 98 degF Sitting Heart Ra te Post-Dialysis 83 BPM Standing Heart Rate Post-Tamiko lysis 84 BPM Temperature Post-Dialysis 98 .1 degF July 11, 2022 In-Center Hemodialysis Treatment [id number]:29:00.000Z [id number]:31:21.000Z BP Sitting (Pre-Dialysis) 191/86 mmHg BP Sitting (Post-Dialysis) 173/73 mmHg Concurrent Access: falseAV Fistula Upper Arm (Left) Arterial BP Standing (Pre-Dialysis) 194/85 mmHg Sitting Heart Rate Post-Dialysis 84 BPM Sitting Heart Rate Pre-Dialysis 85 BPM Temperatu re Post-Dialysis 98 degF Standing Heart Rate Pre-Dialysis 85 BPM Temperature Pre-Dialysis 98.6 degF July 06, 2022 In-Center Hemodialysis Treatment [id number]:28:00.000Z [id number]:29:33.000Z BP Sitting (Pre-Dialysis) 185/84 mmHg BP Sitting (Post-Dialysis) 207/90 mmHg Concurrent Access: falseAV Fistula Upper Arm (Left) Arterial BP Standing (Pre-Dialysis) 178/83 mmHg BP Standing (P ost-Dialysis) 216/86 mmHg Sitting Heart Rate Pre-Dialysis 81 BPM Sitting Heart Rate Post-Dialysis 85 BPM Standing Heart Rate Pre-Dialysis 85 BPM Standing Heart Rate Post-Dialysis 85 BPM Temperature Pre-Dialysis 97.6 degF Temperature Post -Dialysis 96.5 degF July 04, 2022 In-Center Hemodialysis Treatment [id number]:28:00.000Z [id number]:31:33.000Z BP Sitting (Pre-Dialysis) 178/76 mmHg BP Sitting (Post-Dialysis) 166/72 mmHg Concurrent Access: falseAV Fistula Upper Arm (Left) Arterial BP Standing (Pre-Dialysis) 148/81 mmHg Sitti ng Heart Rate Post-Dialysis 82 BPM Sitting Heart Rate Pre-Dialysis 76 BPM Temperatu re Post-Dialysis 96.8 degF Standing Heart Rate Pre-Dialysis 81 BPM Temperature Pre-Dialysis 97.6 degF July 02, 2022 In-Center Hemodialysis Treatment [id number]:30:00.000Z [id number]:24:33.000Z BP Sitting (Pre-Dialysis) 171/74 mmHg BP Sitting (Post-Dialysis) 185/76 mmHg Concurrent Access: falseAV Fistula Upper Arm (Left) Arterial BP Standing (Pre-Dialysis) 190/82 mmHg Sitti ng Heart Rate Post-Dialysis 76 BPM Sitting Heart Rate Pre-Dialysis 77 BPM Temperatu re Post-Dialysis 97.3 degF Standing Heart Rate Pre-Dialysis 80 BPM Temperature Pre-Dialysis 96.5 degF June 29, 2022 In-Center Hemodialysis Treatment [id number]:35:00.000Z [id number]:37:27.000Z BP Sitting (Pre-Dialysis) 172/74 mmHg BP Sitting (Post-Dialysis) 117/70 mmHg Concurrent Access: falseAV Fistula Upper Arm (Left) Arterial BP Standing (Pre-Dialysis) 161/70 mmHg BP Standing (P ost-Dialysis) 155/67 mmHg Sitting Heart Rate Pre-Dialysis 77 BPM Sitting Heart Rate Post-Dialysis 76 BPM Standing Heart Rate Pre-Dialysis 81 BPM Standing Heart Rate Post-Dialysis 84 BPM Temperature Pre-Dialysis 98.1 degF June 20, 2022 In-Center Hemodialysis Treatment [id number]:25:00.000Z [id number]:39:17.000Z BP Sitting (Pre-Dialysis) 145/67 mmHg BP Sitting (Post-Dialysis) 145/51 mmHg Concurrent Access: falseAV Fistula Upper Arm (Left) Arterial Sitting Heart Rate Pre-Dialysis 87 BPM BP Standing (Post-Dialysis) 136/58 mmHg Temperature Pre-Dialysis 97.8 degF Sitting Heart Ra te Post-Dialysis 82 BPM Standing Heart Rate Post-Tamiko lysis 81 BPM Temperature Post-Dialysis 97 .6 degF June 18, 2022 In-Center Hemodialysis Treatment [id number]:36:00.000Z [id number]:33:18.000Z BP Sitting (Pre-Dialysis) 152/76 mmHg BP Sitting (Post-Dialysis) 164/74 mmHg Concurrent Access: falseAV Fistula Upper Arm (Left) Arterial BP Standing (Pre-Dialysis) 156/64 mmHg Sitting Heart Rate Post-Dialysis 76 BPM Sitting Heart Rate Pre-Dialysis 75 BPM Standing Heart Rate Pre-Dialysis 73 BPM Temperature Pre-Dialysis 97.6 degF June 15, 2022 In-Center Hemodialysis Treatment [id number]:46:29.000Z [id number]:25:28.000Z BP Sitting (Pre-Dialysis) 228/95 mmHg BP Sitting (Post-Dialysis) 174/73 mmHg Concurrent Access: falseAV Fistula Upper Arm (Left) Arterial BP Standing (Pre-Dialysis) 210/98 mmHg Sitti ng Heart Rate Post-Dialysis 76 BPM Sitting Heart Rate Pre-Dialysis 87 BPM Temperatu re Post-Dialysis 98.6 degF Standing Heart Rate Pre-Dialysis 88 BPM Temperature Pre-Dialysis 98.9 degF June 13, 2022 In-Center Hemodialysis Treatment [id number]:43:00.000Z [id number]:37:17.000Z BP Sitting (Pre-Dialysis) 228/89 mmHg BP Sitting (Post-Dialysis) 129/59 mmHg Concurrent Access: falseAV Fistula Upper Arm (Left) Arterial Sitting Heart Rate Pre-Dialysis 81 BPM Sitting H eart Rate Post-Dialysis 78 BPM Temperature Pre-Dialysis 98 degF Temperature Post -Dialysis 98 degF June 11, 2022 In-Center Hemodialysis Treatment [id number]:28:47.000Z [id number]:17:47.000Z BP Sitting (Pre-Dialysis) 213/91 mmHg BP Sitting (Post-Dialysis) 232/81 mmHg Concurrent Access: falseAV Fistula Upper Arm (Left) Arterial BP Standing (Pre-Dialysis) 222/108 mmHg Sitti ng Heart Rate Post-Dialysis 107 BPM Sitting Heart Rate Pre-Dialysis 100 BPM Temperatu re Post-Dialysis 98.6 degF Standing Heart Rate Pre-Dialysis 100 BPM Temperature Pre-Dialysis 98.6 degF June 08, 2022 In-Center Hemodialysis Treatment [id number]:26:00.000Z [id number]:26:26.000Z BP Sitting (Pre-Dialysis) 202/98 mmHg BP Sitting (Post-Dialysis) 190/76 mmHg Concurrent Access: falseAV Fistula Upper Arm (Left) Arterial BP Standing (Pre-Dialysis) 221/110 mmHg BP Standing (P ost-Dialysis) 185/69 mmHg Sitting Heart Rate Pre-Dialysis 86 BPM Sitting Heart Rate Post-Dialysis 79 BPM Standing Heart Rate Pre-Dialysis 89 BPM Standing Heart Rate Post-Dialysis 90 BPM Temperature Pre-Dialysis 96.8 degF Temperature Post -Dialysis 97 degF June 06, 2022 In-Center Hemodialysis Treatment [id number]:34:00.000Z [id number]:30:26.000Z BP Sitting (Pre-Dialysis) 146/80 mmHg BP Sitting (Post-Dialysis) 162/72 mmHg Concurrent Access: falseAV Fistula Upper Arm (Left) Arterial BP Standing (Pre-Dialysis) 154/82 mmHg BP Standing (P ost-Dialysis) 162/82 mmHg Sitting Heart Rate Pre-Dialysis 80 BPM Sitting Heart Rate Post-Dialysis 73 BPM Standing Heart Rate Pre-Dialysis 82 BPM Standing Heart Rate Post-Dialysis 83 BPM Temperature Pre-Dialysis 98.5 degF Temperature Post -Dialysis 97.5 degF June 04, 2022 In-Center Hemodialysis Treatment [id number]:31:00.000Z [id number]:20:26.000Z BP Sitting (Pre-Dialysis) 150/71 mmHg BP Sitting (Post-Dialysis) 156/68 mmHg Concurrent Access: falseAV Fistula Upper Arm (Left) Arterial BP Standing (Pre-Dialysis) 132/74 mmHg Sitting Heart Rate Post-Dialysis 79 BPM Sitting Heart Rate Pre-Dialysis 84 BPM Temperatu re Post-Dialysis 97 degF Standing Heart Rate Pre-Dialysis 88 BPM Temperature Pre-Dialysis 97.5 degF June 01, 2022 In-Center Hemodialysis Treatment [id number]:31:00.000Z [id number]:31:57.000Z BP Sitting (Pre-Dialysis) 147/68 mmHg BP Sitting (Post-Dialysis) 142/80 mmHg Concurrent Access: falseAV Fistula Upper Arm (Left) Arterial BP Standing (Pre-Dialysis) 175/62 mmHg BP Standing (P ost-Dialysis) 131/67 mmHg Sitting Heart Rate Pre-Dialysis 70 BPM Sitting Heart Rate Post-Dialysis 80 BPM Standing Heart Rate Pre-Dialysis 75 BPM Standing Heart Rate Post-Dialysis 90 BPM Temperature Pre-Dialysis 97.1 degF Temperature Post -Dialysis 97.5 degF May 30, 2022 In-Center Hemodialysis Treatment [id number]:34:00.000Z [id number]:35:57.000Z BP Sitting (Pre-Dialysis) 149/73 mmHg BP Sitting (Post-Dialysis) 121/92 mmHg Concurrent Access: falseAV Fistula Upper Arm (Left) Arterial BP Standing (Pre-Dialysis) 164/81 mmHg BP Standing (P ost-Dialysis) 142/60 mmHg Sitting Heart Rate Pre-Dialysis 74 BPM Sitting Heart Rate Post-Dialysis 72 BPM Standing Heart Rate Pre-Dialysis 79 BPM Standing Heart Rate Post-Dialysis 83 BPM Temperature Pre-Dialysis 98.8 degF Temperature Post -Dialysis 98 degF May 28, 2022 In-Center Hemodialysis Treatment [id number]:38:00.000Z [id number]:22:32.000Z BP Sitting (Pre-Dialysis) 151/62 mmHg BP Sitting (Post-Dialysis) 160/72 mmHg Concurrent Access: falseAV Fistula Upper Arm (Left) Arterial BP Standing (Pre-Dialysis) 135/75 mmHg BP Standing (P ost-Dialysis) 147/58 mmHg Sitting Heart Rate Pre-Dialysis 78 BPM Sitting Heart Rate Post-Dialysis 77 BPM Standing Heart Rate Pre-Dialysis 81 BPM Standing Heart Rate Post-Dialysis 88 BPM Temperature Pre-Dialysis 97.7 degF Temperature Post -Dialysis 96.6 degF May 25, 2022 In-Center Hemodialysis Treatment [id number]:27:00.000Z [id number]:16:42.000Z BP Sitting (Pre-Dialysis) 163/78 mmHg BP Sitting (Post-Dialysis) 172/72 mmHg Concurrent Access: falseAV Fistula Upper Arm (Left) Arterial BP Standing (Pre-Dialysis) 175/83 mmHg Sitti ng Heart Rate Post-Dialysis 75 BPM Sitting Heart Rate Pre-Dialysis 76 BPM Temperatu re Post-Dialysis 97.1 degF Standing Heart Rate Pre-Dialysis 77 BPM Temperature Pre-Dialysis 97 degF May 23, 2022 In-Center Hemodialysis Treatment [id number]:29:00.000Z [id number]:27:43.000Z BP Sitting (Pre-Dialysis) 183/90 mmHg BP Sitting (Post-Dialysis) 168/72 mmHg Concurrent Access: falseAV Fistula Upper Arm (Left) Arterial BP Standing (Pre-Dialysis) 191/88 mmHg Sitti ng Heart Rate Post-Dialysis 80 BPM Sitting Heart Rate Pre-Dialysis 73 BPM Temperatu re Post-Dialysis 96.5 degF Standing Heart Rate Pre-Dialysis 78 BPM Temperature Pre-Dialysis 96.5 degF May 21, 2022 In-Center Hemodialysis Treatment [id number]:40:43.000Z [id number]:18:42.000Z BP Sitting (Pre-Dialysis) 178/88 mmHg BP Sitting (Post-Dialysis) 159/68 mmHg Concurrent Access: falseAV Fistula Upper Arm (Left) Arterial BP Standing (Pre-Dialysis) 183/89 mmHg Sitti ng Heart Rate Post-Dialysis 76 BPM Sitting Heart Rate Pre-Dialysis 76 BPM Temperatu re Post-Dialysis 96.6 degF Standing Heart Rate Pre-Dialysis 80 BPM Temperature Pre-Dialysis 96.8 degF DIALYSIS ORDER Dialysis Procedure Orders Type of Dialysis Procedure Order Order Date/Time Observations In-Center Hemodialysis Treatment 2024 Target Weight 88.4 kg Dialysate Flow Rate 800 mL/min Blood Flow Rate 450 mL/min Treatment Time 180 min(total) Max UF Rate 13 mL/kg/hr Base Sodium Dialysate Base Sodium 138 mE q/L dialysate_temp 36.5 C BiCarb Dialysate BiCarbonate 32 mEq/L Access Concurrent No Arterial Access AV Fistula (Upper Ar m (Left)) Venous Access AV Fistula (Upper Ar m (Left)) Arterial Needle Display NIPRO, TULIP, 15 G x 1 , SHARP , TWIN Venous Needle NIPRO, TULIP, 15G x 1 , SHARP , TWIN Dialyzer Nipro Elisio 15H 126 4 [email or web address] Dialysate Bath Potassium Potassium 3 mEq /L Dialysate Bath Calcium Calcium 2.5 mEq/L In-Center Hemodialysis TreatmentAu2023 Observation Value Target Weight 89 kg Dialysate Flow Rate 800 mL/min Blood Flow Rate 450 mL/min Treatment Time 180 min Max UF Rate 13 mL/kg/hr Base Sodium Dialysate Base Sodium 138 mE q/L dialysate_temp 36.5 C BiCarb Dialysate BiCarbonate 32 mEq/L Access Concurrent No Arterial Access AV Fistula (Upper Ar m (Left)) Venous Access AV Fistula (Upper Ar m (Left)) Arterial Needle Display NIPRO, TULIP, 15 G x 1 , SHARP , TWIN Venous Needle NIPRO, TULIP, 15G x 1 , SHARP , TWIN Dialyzer Nipro Elisio 15H 126 4 [email or web address] Dialysate Bath Potassium Potassium 3 mEq /L Dialysate Bath Calcium Calcium 2.5 mEq/L Results Adequacy Description Draw Date Result/Unit Status Ref Range Result Comments Creatinine [Mass/volume] in Serum or Plasma 2024-08-20 14:21:12 6.65 mg/dL F 0.5-1.1 DIALYZER FLOW-QD 2024-08-13 19:20:17 763 mL/min F URR% 2024-08-13 19:20:17 74 % F VM (KT/V MEAN VOL) 2024-08-13 19:20:17 36.4 F WEIGHT (KG) 2024-08-13 19:20:17 88.4 kg F spKt/V 2024-08-13 19:20:17 1.47 F eKt/V 2024-08-13 19:20:17 1.23 F Residual kt/v 2024-08-13 19:20:17 F PRESCRIBED DAYS/WEEK 2024-08-13 19:20:17 3 Day/Wk F stdKT/V Total 2024-08-13 19:20:17 N/A F WEIGHT - PRE DAY 1 2024-08-13 19:20:17 89 kg F KT/V PRESCRIBED 2024-08-13 19:20:17 1.82 F PATIENT AGE 2024-08-13 19:20:17 69 Years F nPCR 2024-08-13 19:20:17 0.77 G/KG/D F HEIGHT IN INCHES 2024-08-13 19:20:17 67 Inches F Total Kt/V 2024-08-13 19:20:17 1.47 F stdKt/V (DIAL) 2024-08-13 19:20:17 N/A F BLOOD FLOW-QWB 2024-08-13 19:20:17 444 F VT (KT/V TX VOL) 2024-08-13 19:20:17 37.9 L F Std Renal KT/V 2024-08-13 19:20:17 N/A F Dialyzer RICKI 2024-08-13 19:20:17 1264 Calc F BSA RALPH 2024-08-13 19:20:17 2 sq m F TOTAL HOURS/WEEK DIALYSIS 2024-08-13 19:20:17 8 hrs F LENGTH OF DIALYSIS 2024-08-13 19:20:17 181 min F WEIGHT - POST DAY 1 2024-08-13 19:20:17 88.2 kg F AMPUTATE FACTOR 2024-08-13 19:20:17 0 F TBW ([facility]ans) 2024-08-13 19:20:17 37.85 Liters F CURRENT KRU 2024-08-13 19:20:17 F Urea nitrogen [Mass/volume] in Serum or Plasma 2024-08-13 19:18:19 38 mg/dL F 9.0-23.0 Urea nitrogen [Mass/volume] in Serum or Plasma --post dialysis 2024-08-13 16:03:22 10 mg/dL F 9.0-23.0 DIALYZER FLOW-QD 2024-07-25 18:13:17 800 mL/min F WEIGHT - PRE DAY 1 2024-07-25 18:13:17 90 kg F nPCR 2024-07-25 18:13:17 F Unable to calculate: Post BUN lab result is unknown PATIENT AGE 2024-07-25 18:13:17 69 Years F Dialyzer RICKI 2024-07-25 18:13:17 1264 Calc F BSA RALPH 2024-07-25 18:13:17 F Unable to calculate: Post BUN lab result is unknown AMPUTATE FACTOR 2024-07-25 18:13:17 0 F stdKt/V (DIAL) 2024-07-25 18:13:17 F Unable to calculate: Post BUN lab result is unknown VT (KT/V TX VOL) 2024-07-25 18:13:17 F Unable to calculate: Post BUN lab result is unknown PRESCRIBED DAYS/WEEK 2024-07-25 18:13:17 3 Day/Wk F TOTAL HOURS/WEEK DIALYSIS 2024-07-25 18:13:17 9 hrs F Total Kt/V 2024-07-25 18:13:17 F Unable to calculate: Post BUN lab result is unknown eKt/V 2024-07-25 18:13:17 F Unable to calculate: Post BUN lab result is unknown TBW (Evans) 2024-07-25 18:13:17 F Unable to calculate: Post BUN lab result is unknown Std Renal KT/V 2024-07-25 18:13:17 F Unable to calculate: Post BUN lab result is unknown CURRENT KRU 2024-07-25 18:13:17 F Unable to calculate: Post BUN lab result is unknown WEIGHT (KG) 2024-07-25 18:13:17 89 kg F VM (KT/V MEAN VOL) 2024-07-25 18:13:17 F Unable to calculate: Post BUN lab result is unknown KT/V PRESCRIBED 2024-07-25 18:13:17 F Unable to calculate: Post BUN lab result is unknown Residual kt/v 2024-07-25 18:13:17 F Unable to calculate: Post BUN lab result is unknown BLOOD FLOW-QWB 2024-07-25 18:13:17 450 F LENGTH OF DIALYSIS 2024-07-25 18:13:17 177 min F URR% 2024-07-25 18:13:17 F Unable to calculate: Post BUN lab result is unknown HEIGHT IN INCHES 2024-07-25 18:13:17 67 Inches F stdKT/V Total 2024-07-25 18:13:17 F Unable to calculate: Post BUN lab result is unknown spKt/V 2024-07-25 18:13:17 F Unable to calculate: Post BUN lab result is unknown WEIGHT - POST DAY 1 2024-07-25 18:13:17 88.6 kg F Creatinine [Mass/volume] in Serum or Plasma 2024-07-25 18:11:13 6.11 mg/dL F 0.5-1.1 Urea nitrogen [Mass/volume] in Serum or Plasma 2024-07-25 18:11:13 20 mg/dL F 9.0-23.0 URR% 2024-07-14 16:49:08 75 % F CURRENT KRU 2024-07-14 16:49:08 F TBW (Evans) 2024-07-14 16:49:08 37.99 Liters F WEIGHT - POST DAY 1 2024-07-14 16:49:08 88.8 kg F eKt/V 2024-07-14 16:49:08 1.3 F WEIGHT (KG) 2024-07-14 16:49:08 89 kg F PATIENT AGE 2024-07-14 16:49:08 69 Years F DIALYZER FLOW-QD 2024-07-14 16:49:08 800 mL/min F HEIGHT IN INCHES 2024-07-14 16:49:08 67 Inches F VT (KT/V TX VOL) 2024-07-14 16:49:08 36 L F LENGTH OF DIALYSIS 2024-07-14 16:49:08 180 min F Std Renal KT/V 2024-07-14 16:49:08 N/A F PRESCRIBED DAYS/WEEK 2024-07-14 16:49:08 3 Day/Wk F BSA RALPH 2024-07-14 16:49:08 2.01 sq m F WEIGHT - PRE DAY 1 2024-07-14 16:49:08 90.9 kg F Residual kt/v 2024-07-14 16:49:08 F AMPUTATE FACTOR 2024-07-14 16:49:08 0 F nPCR 2024-07-14 16:49:08 0.68 G/KG/D F TOTAL HOURS/WEEK DIALYSIS 2024-07-14 16:49:08 9 hrs F stdKt/V (DIAL) 2024-07-14 16:49:08 N/A F spKt/V 2024-07-14 16:49:08 1.57 F VM (KT/V MEAN VOL) 2024-07-14 16:49:08 35.9 F Dialyzer RICKI 2024-07-14 16:49:08 1264 Calc F KT/V PRESCRIBED 2024-07-14 16:49:08 1.8 F stdKT/V Total 2024-07-14 16:49:08 N/A F Total Kt/V 2024-07-14 16:49:08 1.57 F BLOOD FLOW-QWB 2024-07-14 16:49:08 450 F Urea nitrogen [Mass/volume] in Serum or Plasma 2024-07-14 16:47:19 40 mg/dL F 9.0-23.0 Urea nitrogen [Mass/volume] in Serum or Plasma --post dialysis 2024-07-14 16:07:15 10 mg/dL F 9.0-23.0 Residual kt/v 2024-06-26 18:27:49 F PATIENT AGE 2024-06-26 18:27:49 69 Years F Dialyzer RICKI 2024-06-26 18:27:49 1264 Calc F TBW ([facility]ans) 2024-06-26 18:27:49 37.94 Liters F nPCR 2024-06-26 18:27:49 0.71 G/KG/D F PRESCRIBED DAYS/WEEK 2024-06-26 18:27:49 3 Day/Wk F stdKT/V Total 2024-06-26 18:27:49 N/A F HEIGHT IN INCHES 2024-06-26 18:27:49 67 Inches F WEIGHT (KG) 2024-06-26 18:27:49 89 kg F VM (KT/V MEAN VOL) 2024-06-26 18:27:49 35.9 F LENGTH OF DIALYSIS 2024-06-26 18:27:49 181 min F CURRENT KRU 2024-06-26 18:27:49 F WEIGHT - PRE DAY 1 2024-06-26 18:27:49 90.5 kg F BSA RALPH 2024-06-26 18:27:49 2.01 sq m F Std Renal KT/V 2024-06-26 18:27:49 N/A F KT/V PRESCRIBED 2024-06-26 18:27:49 1.81 F stdKt/V (DIAL) 2024-06-26 18:27:49 N/A F URR% 2024-06-26 18:27:49 71 % F spKt/V 2024-06-26 18:27:49 1.41 F WEIGHT - POST DAY 1 2024-06-26 18:27:49 88.6 kg F DIALYZER FLOW-QD 2024-06-26 18:27:49 800 mL/min F Total Kt/V 2024-06-26 18:27:49 1.41 F TOTAL HOURS/WEEK DIALYSIS 2024-06-26 18:27:49 6 hrs F eKt/V 2024-06-26 18:27:49 1.17 F AMPUTATE FACTOR 2024-06-26 18:27:49 0 F BLOOD FLOW-QWB 2024-06-26 18:27:49 450 F VT (KT/V TX VOL) 2024-06-26 18:27:49 40.4 L F Urea nitrogen [Mass/volume] in Serum or Plasma --post dialysis 2024-06-26 18:10:26 12 mg/dL F 9.0-23.0 Creatinine [Mass/volume] in Serum or Plasma 2024-06-26 16:25:19 8.92 mg/dL F 0.5-1.1 Urea nitrogen [Mass/volume] in Serum or Plasma 2024-06-26 16:25:19 42 mg/dL F 9.0-23.0 Dialyzer RICKI 2024-04-26 03:57:40 1264 Calc F DIALYZER FLOW-QD 2024-04-26 03:57:40 800 mL/min F LENGTH OF DIALYSIS 2024-04-26 03:57:40 182 min F PATIENT AGE 2024-04-26 03:57:40 69 Years F BSA RALPH 2024-04-26 03:57:40 2.01 sq m F WEIGHT - POST DAY 1 2024-04-26 03:57:40 88.7 kg F WEIGHT - PRE DAY 1 2024-04-26 03:57:40 90.9 kg F HEIGHT IN INCHES 2024-04-26 03:57:40 67 Inches F WEIGHT (KG) 2024-04-26 03:57:40 89 kg F VT (KT/V TX VOL) 2024-04-26 03:57:40 32.7 L F VM (KT/V MEAN VOL) 2024-04-26 03:57:40 33.8 F PRESCRIBED DAYS/WEEK 2024-04-26 03:57:40 3 Day/Wk F Residual kt/v 2024-04-26 03:57:40 F KT/V PRESCRIBED 2024-04-26 03:57:40 1.82 F Total Kt/V 2024-04-26 03:57:40 1.75 F nPCR 2024-04-26 03:57:40 0.93 G/KG/D F AMPUTATE FACTOR 2024-04-26 03:57:40 0 F TBW ([facility]) 2024-04-26 03:57:40 37.97 Liters F spKt/V 2024-04-26 03:57:40 1.75 F eKt/V 2024-04-26 03:57:40 1.44 F stdKt/V (DIAL) 2024-04-26 03:57:40 N/A F Std Renal KT/V 2024-04-26 03:57:40 N/A F TOTAL HOURS/WEEK DIALYSIS 2024-04-26 03:57:40 8 hrs F stdKT/V Total 2024-04-26 03:57:40 N/A F BLOOD FLOW-QWB 2024-04-26 03:57:40 450 F CURRENT KRU 2024-04-26 03:57:40 F URR% 2024-04-26 03:57:39 78 % F Urea nitrogen [Mass/volume] in Serum or Plasma 2024-04-26 03:56:16 40 mg/dL F 9.0-23.0 Urea nitrogen [Mass/volume] in Serum or Plasma --post dialysis 2024-04-25 16:19:17 9 mg/dL F 9.0-23.0 Creatinine [Mass/volume] in Serum or Plasma 2024-04-23 22:41:23 7.02 mg/dL F 0.5-1.1 Dialyzer RICKI 2024-03-27 03:32:21 1264 Calc F DIALYZER FLOW-QD 2024-03-27 03:32:21 800 mL/min F LENGTH OF DIALYSIS 2024-03-27 03:32:21 180 min F URR% 2024-03-27 03:32:21 75 % F PATIENT AGE 2024-03-27 03:32:21 69 Years F WEIGHT - PRE DAY 1 2024-03-27 03:32:21 90.4 kg F BSA RALPH 2024-03-27 03:32:21 2.01 sq m F WEIGHT (KG) 2024-03-27 03:32:21 89 kg F WEIGHT - POST DAY 1 2024-03-27 03:32:21 88.5 kg F HEIGHT IN INCHES 2024-03-27 03:32:21 67 Inches F PRESCRIBED DAYS/WEEK 2024-03-27 03:32:21 3 Day/Wk F VM (KT/V MEAN VOL) 2024-03-27 03:32:21 34.2 F VT (KT/V TX VOL) 2024-03-27 03:32:21 35 L F Residual kt/v 2024-03-27 03:32:21 F KT/V PRESCRIBED 2024-03-27 03:32:21 1.8 F nPCR 2024-03-27 03:32:21 1.04 G/KG/D F Total Kt/V 2024-03-27 03:32:21 1.59 F AMPUTATE FACTOR 2024-03-27 03:32:21 0 F TBW ([facility]) 2024-03-27 03:32:21 37.92 Liters F eKt/V 2024-03-27 03:32:21 1.32 F stdKt/V (DIAL) 2024-03-27 03:32:21 N/A F spKt/V 2024-03-27 03:32:21 1.59 F stdKT/V Total 2024-03-27 03:32:21 N/A F Std Renal KT/V 2024-03-27 03:32:21 N/A F TOTAL HOURS/WEEK DIALYSIS 2024-03-27 03:32:21 8 hrs F BLOOD FLOW-QWB 2024-03-27 03:32:21 436 F CURRENT KRU 2024-03-27 03:32:21 F Urea nitrogen [Mass/volume] in Serum or Plasma --post dialysis 2024-03-27 03:30:21 13 mg/dL F 9.0-23.0 Urea nitrogen [Mass/volume] in Serum or Plasma 2024-03-27 01:40:19 52 mg/dL F 9.0-23.0 Creatinine [Mass/volume] in Serum or Plasma 2024-03-27 01:40:19 7.74 mg/dL F 0.5-1.1 URR% 2024-02-23 02:42:40 75 % F Dialyzer RICKI 2024-02-23 02:42:40 1264 Calc F LENGTH OF DIALYSIS 2024-02-23 02:42:40 179 min F DIALYZER FLOW-QD 2024-02-23 02:42:40 800 mL/min F PATIENT AGE 2024-02-23 02:42:40 68 Years F BSA RALPH 2024-02-23 02:42:40 2.01 sq m F WEIGHT - PRE DAY 1 2024-02-23 02:42:40 93.6 kg F HEIGHT IN INCHES 2024-02-23 02:42:40 67 Inches F WEIGHT - POST DAY 1 2024-02-23 02:42:40 92.8 kg F PRESCRIBED DAYS/WEEK 2024-02-23 02:42:40 3 Day/Wk F WEIGHT (KG) 2024-02-23 02:42:40 89 kg F VT (KT/V TX VOL) 2024-02-23 02:42:40 35.8 L F VM (KT/V MEAN VOL) 2024-02-23 02:42:40 33.9 F Residual kt/v 2024-02-23 02:42:40 F nPCR 2024-02-23 02:42:40 0.86 G/KG/D F KT/V PRESCRIBED 2024-02-23 02:42:40 1.79 F Total Kt/V 2024-02-23 02:42:40 1.54 F AMPUTATE FACTOR 2024-02-23 02:42:40 0 F TBW ([facility]) 2024-02-23 02:42:40 38.98 Liters F spKt/V 2024-02-23 02:42:40 1.54 F eKt/V 2024-02-23 02:42:40 1.28 F stdKt/V (DIAL) 2024-02-23 02:42:40 N/A F Std Renal KT/V 2024-02-23 02:42:40 N/A F stdKT/V Total 2024-02-23 02:42:40 N/A F TOTAL HOURS/WEEK DIALYSIS 2024-02-23 02:42:40 7 hrs F BLOOD FLOW-QWB 2024-02-23 02:42:40 433 F CURRENT KRU 2024-02-23 02:42:40 F Urea nitrogen [Mass/volume] in Serum or Plasma 2024-02-23 02:41:17 40 mg/dL F 9.0-23.0 Urea nitrogen [Mass/volume] in Serum or Plasma --post dialysis 2024-02-22 23:01:12 10 mg/dL F 9.0-23.0 stdKT/V Total 2024-02-20 14:19:50 N/A F HEIGHT IN INCHES 2024-02-20 14:19:50 67 Inches F nPCR 2024-02-20 14:19:50 0.71 G/KG/D F VM (KT/V MEAN VOL) 2024-02-20 14:19:50 33.3 F BLOOD FLOW-QWB 2024-02-20 14:19:50 440 F DIALYZER FLOW-QD 2024-02-20 14:19:50 800 mL/min F KT/V PRESCRIBED 2024-02-20 14:19:50 1.28 F BSA RALPH 2024-02-20 14:19:50 2.01 sq m F Total Kt/V 2024-02-20 14:19:50 1.13 F Dialyzer RICKI 2024-02-20 14:19:50 1264 Calc F stdKt/V (DIAL) 2024-02-20 14:19:50 N/A F TBW ([facility]) 2024-02-20 14:19:50 38.26 Liters F spKt/V 2024-02-20 14:19:50 1.13 F PRESCRIBED DAYS/WEEK 2024-02-20 14:19:50 3 Day/Wk F PATIENT AGE 2024-02-20 14:19:50 68 Years F CURRENT KRU 2024-02-20 14:19:50 F VT (KT/V TX VOL) 2024-02-20 14:19:50 35 L F LENGTH OF DIALYSIS 2024-02-20 14:19:50 128 min F AMPUTATE FACTOR 2024-02-20 14:19:50 0 F URR% 2024-02-20 14:19:50 66 % F WEIGHT - POST DAY 1 2024-02-20 14:19:50 89.9 kg F Std Renal KT/V 2024-02-20 14:19:50 N/A F WEIGHT - PRE DAY 1 2024-02-20 14:19:50 90 kg F TOTAL HOURS/WEEK DIALYSIS 2024-02-20 14:19:50 7 hrs F WEIGHT (KG) 2024-02-20 14:19:50 89 kg F Residual kt/v 2024-02-20 14:19:50 F eKt/V 2024-02-20 14:19:50 0.89 F URR% 2024-02-20 14:19:50 66 % F Dialyzer RICKI 2024-02-20 14:19:50 1264 Calc F LENGTH OF DIALYSIS 2024-02-20 14:19:50 128 min F DIALYZER FLOW-QD 2024-02-20 14:19:50 800 mL/min F BSA RALPH 2024-02-20 14:19:50 2.01 sq m F PATIENT AGE 2024-02-20 14:19:50 68 Years F WEIGHT - POST DAY 1 2024-02-20 14:19:50 89.9 kg F WEIGHT - PRE DAY 1 2024-02-20 14:19:50 90 kg F WEIGHT (KG) 2024-02-20 14:19:50 89 kg F PRESCRIBED DAYS/WEEK 2024-02-20 14:19:50 3 Day/Wk F HEIGHT IN INCHES 2024-02-20 14:19:50 67 Inches F VT (KT/V TX VOL) 2024-02-20 14:19:50 35 L F VM (KT/V MEAN VOL) 2024-02-20 14:19:50 33.3 F Residual kt/v 2024-02-20 14:19:50 F KT/V PRESCRIBED 2024-02-20 14:19:50 1.28 F AMPUTATE FACTOR 2024-02-20 14:19:50 0 F Total Kt/V 2024-02-20 14:19:50 1.13 F TBW ([facility]) 2024-02-20 14:19:50 38.26 Liters F nPCR 2024-02-20 14:19:50 0.71 G/KG/D F spKt/V 2024-02-20 14:19:50 1.13 F eKt/V 2024-02-20 14:19:50 0.89 F stdKt/V (DIAL) 2024-02-20 14:19:50 N/A F stdKT/V Total 2024-02-20 14:19:50 N/A F Std Renal KT/V 2024-02-20 14:19:50 N/A F TOTAL HOURS/WEEK DIALYSIS 2024-02-20 14:19:50 7 hrs F BLOOD FLOW-QWB 2024-02-20 14:19:50 440 F CURRENT KRU 2024-02-20 14:19:50 F Urea nitrogen [Mass/volume] in Serum or Plasma --post dialysis 2024-02-20 14:18:14 14 mg/dL F 9.0-23.0 Urea nitrogen [Mass/volume] in Serum or Plasma --post dialysis 2024-02-20 14:18:14 14 mg/dL F 9.0-23.0 Urea nitrogen [Mass/volume] in Serum or Plasma 2024-02-20 13:49:08 41 mg/dL F 9.0-23.0 Creatinine [Mass/volume] in Serum or Plasma 2024-02-20 13:49:08 8 mg/dL F 0.5-1.1 Urea nitrogen [Mass/volume] in Serum or Plasma 2024-02-20 13:49:08 41 mg/dL F 9.0-23.0 Creatinine [Mass/volume] in Serum or Plasma 2024-02-20 13:49:08 8 mg/dL F 0.5-1.1 URR% 2024-01-30 15:40:11 79 % F DIALYZER FLOW-QD 2024-01-30 15:40:11 800 mL/min F Dialyzer RICKI 2024-01-30 15:40:11 1264 Calc F LENGTH OF DIALYSIS 2024-01-30 15:40:11 181 min F WEIGHT - POST DAY 1 2024-01-30 15:40:11 90.9 kg F PATIENT AGE 2024-01-30 15:40:11 68 Years F BSA RALPH 2024-01-30 15:40:11 2.01 sq m F WEIGHT - PRE DAY 1 2024-01-30 15:40:11 92.4 kg F HEIGHT IN INCHES 2024-01-30 15:40:11 67 Inches F WEIGHT (KG) 2024-01-30 15:40:11 89 kg F VM (KT/V MEAN VOL) 2024-01-30 15:40:11 32.7 F Residual kt/v 2024-01-30 15:40:11 F VT (KT/V TX VOL) 2024-01-30 15:40:11 31.7 L F KT/V PRESCRIBED 2024-01-30 15:40:11 1.81 F PRESCRIBED DAYS/WEEK 2024-01-30 15:40:11 3 Day/Wk F nPCR 2024-01-30 15:40:11 1.12 G/KG/D F AMPUTATE FACTOR 2024-01-30 15:40:11 0 F Total Kt/V 2024-01-30 15:40:11 1.79 F TBW ([facility]) 2024-01-30 15:40:11 38.51 Liters F spKt/V 2024-01-30 15:40:11 1.79 F eKt/V 2024-01-30 15:40:11 1.48 F Std Renal KT/V 2024-01-30 15:40:11 N/A F stdKt/V (DIAL) 2024-01-30 15:40:11 N/A F BLOOD FLOW-QWB 2024-01-30 15:40:11 450 F stdKT/V Total 2024-01-30 15:40:11 N/A F TOTAL HOURS/WEEK DIALYSIS 2024-01-30 15:40:11 8 hrs F CURRENT KRU 2024-01-30 15:40:11 F Urea nitrogen [Mass/volume] in Serum or Plasma 2024-01-30 15:38:28 53 mg/dL F 9.0-23.0 Creatinine [Mass/volume] in Serum or Plasma 2024-01-30 15:38:28 8.02 mg/dL F 0.5-1.1 Urea nitrogen [Mass/volume] in Serum or Plasma --post dialysis 2024-01-30 14:27:43 11 mg/dL F 9.0-23.0 URR% 2024-01-23 19:58:41 F Recollect - Shipping temp out of range Urea nitrogen [Mass/volume] in Serum or Plasma --post dialysis 2024-01-23 13:37:10 F Recollect - Shipping temp out of range Urea nitrogen [Mass/volume] in Serum or Plasma 2024-01-23 13:37:10 F Recollect - Shipping temp out of range Creatinine [Mass/volume] in Serum or Plasma 2024-01-23 13:37:10 F Recollect - Shipping temp out of range HEIGHT IN INCHES 2024-01-22 20:18:53 67 Inches F AMPUTATE FACTOR 2024-01-22 20:18:53 0 F PATIENT AGE 2024-01-22 20:18:52 68 Years F WEIGHT (KG) 2024-01-22 20:18:52 89 kg F DIALYZER FLOW-QD 2023-12-27 16:11:25 800 mL/min F Dialyzer RICKI 2023-12-27 16:11:25 1264 Calc F LENGTH OF DIALYSIS 2023-12-27 16:11:25 179 min F PATIENT AGE 2023-12-27 16:11:25 68 Years F BSA RALPH 2023-12-27 16:11:25 1.97 sq m F WEIGHT - POST DAY 1 2023-12-27 16:11:25 91.3 kg F WEIGHT - PRE DAY 1 2023-12-27 16:11:25 94.7 kg F HEIGHT IN INCHES 2023-12-27 16:11:25 67 Inches F WEIGHT (KG) 2023-12-27 16:11:25 85.5 kg F PRESCRIBED DAYS/WEEK 2023-12-27 16:11:25 3 Day/Wk F VT (KT/V TX VOL) 2023-12-27 16:11:25 43.5 L F VM (KT/V MEAN VOL) 2023-12-27 16:11:25 33.1 F Residual kt/v 2023-12-27 16:11:25 F KT/V PRESCRIBED 2023-12-27 16:11:25 1.83 F Total Kt/V 2023-12-27 16:11:25 1.28 F nPCR 2023-12-27 16:11:25 0.74 G/KG/D F AMPUTATE FACTOR 2023-12-27 16:11:25 0 F TBW ([facility]) 2023-12-27 16:11:25 38.61 Liters F spKt/V 2023-12-27 16:11:25 1.28 F eKt/V 2023-12-27 16:11:25 1.07 F stdKt/V (DIAL) 2023-12-27 16:11:25 N/A F Std Renal KT/V 2023-12-27 16:11:25 N/A F stdKT/V Total 2023-12-27 16:11:25 N/A F TOTAL HOURS/WEEK DIALYSIS 2023-12-27 16:11:25 8 hrs F BLOOD FLOW-QWB 2023-12-27 16:11:25 436 F CURRENT KRU 2023-12-27 16:11:25 F URR% 2023-12-27 16:11:24 66 % F Urea nitrogen [Mass/volume] in Serum or Plasma --post dialysis 2023-12-27 16:10:00 13 mg/dL F 9.0-23.0 Urea nitrogen [Mass/volume] in Serum or Plasma 2023-12-27 15:44:53 38 mg/dL F 9.0-23.0 URR% 2023-12-24 16:09:08 64 % F DIALYZER FLOW-QD 2023-12-24 16:09:08 500 mL/min F Dialyzer RICKI 2023-12-24 16:09:08 1264 Calc F LENGTH OF DIALYSIS 2023-12-24 16:09:08 142 min F PATIENT AGE 2023-12-24 16:09:08 68 Years F BSA RALPH 2023-12-24 16:09:08 1.97 sq m F WEIGHT - POST DAY 1 2023-12-24 16:09:08 92.4 kg F WEIGHT - PRE DAY 1 2023-12-24 16:09:08 95.3 kg F HEIGHT IN INCHES 2023-12-24 16:09:08 67 Inches F WEIGHT (KG) 2023-12-24 16:09:08 85.5 kg F PRESCRIBED DAYS/WEEK 2023-12-24 16:09:08 3 Day/Wk F VT (KT/V TX VOL) 2023-12-24 16:09:08 34.4 L F VM (KT/V MEAN VOL) 2023-12-24 16:09:08 33.1 F Residual kt/v 2023-12-24 16:09:08 F KT/V PRESCRIBED 2023-12-24 16:09:08 1.31 F Total Kt/V 2023-12-24 16:09:08 1.18 F nPCR 2023-12-24 16:09:08 0.7 G/KG/D F AMPUTATE FACTOR 2023-12-24 16:09:08 0 F TBW ([facility]) 2023-12-24 16:09:08 38.88 Liters F spKt/V 2023-12-24 16:09:08 1.18 F eKt/V 2023-12-24 16:09:08 0.95 F stdKt/V (DIAL) 2023-12-24 16:09:08 N/A F Std Renal KT/V 2023-12-24 16:09:08 N/A F stdKT/V Total 2023-12-24 16:09:08 N/A F TOTAL HOURS/WEEK DIALYSIS 2023-12-24 16:09:08 5 hrs F BLOOD FLOW-QWB 2023-12-24 16:09:08 450 F CURRENT KRU 2023-12-24 16:09:08 F Urea nitrogen [Mass/volume] in Serum or Plasma --post dialysis 2023-12-24 16:07:42 20 mg/dL F 9.0-23.0 Urea nitrogen [Mass/volume] in Serum or Plasma 2023-12-24 14:14:33 55 mg/dL F 9.0-23.0 Creatinine [Mass/volume] in Serum or Plasma 2023-12-21 15:36:28 10.34 mg/dL F 0.5-1.1 URR% 2023-11-28 18:15:07 67 % F LENGTH OF DIALYSIS 2023-11-28 18:15:07 133 min F DIALYZER FLOW-QD 2023-11-28 18:15:07 500 mL/min F Dialyzer RICKI 2023-11-28 18:15:07 1264 Calc F PATIENT AGE 2023-11-28 18:15:07 68 Years F BSA RALPH 2023-11-28 18:15:07 1.97 sq m F WEIGHT - POST DAY 1 2023-11-28 18:15:07 90.9 kg F WEIGHT - PRE DAY 1 2023-11-28 18:15:07 93 kg F PRESCRIBED DAYS/WEEK 2023-11-28 18:15:07 3 Day/Wk F HEIGHT IN INCHES 2023-11-28 18:15:07 67 Inches F VT (KT/V TX VOL) 2023-11-28 18:15:07 28.4 L F VM (KT/V MEAN VOL) 2023-11-28 18:15:07 32.7 F Residual kt/v 2023-11-28 18:15:07 F WEIGHT (KG) 2023-11-28 18:15:07 85.5 kg F Total Kt/V 2023-11-28 18:15:07 1.26 F nPCR 2023-11-28 18:15:07 0.68 G/KG/D F TBW ([facility]) 2023-11-28 18:15:07 38.51 Liters F AMPUTATE FACTOR 2023-11-28 18:15:07 0 F KT/V PRESCRIBED 2023-11-28 18:15:07 1.23 F spKt/V 2023-11-28 18:15:07 1.26 F eKt/V 2023-11-28 18:15:07 0.99 F stdKt/V (DIAL) 2023-11-28 18:15:07 N/A F Std Renal KT/V 2023-11-28 18:15:07 N/A F TOTAL HOURS/WEEK DIALYSIS 2023-11-28 18:15:07 5 hrs F BLOOD FLOW-QWB 2023-11-28 18:15:07 392 F stdKT/V Total 2023-11-28 18:15:07 N/A F CURRENT KRU 2023-11-28 18:15:07 F Urea nitrogen [Mass/volume] in Serum or Plasma 2023-11-28 18:13:40 70 mg/dL F 9.0-23.0 Creatinine [Mass/volume] in Serum or Plasma 2023-11-28 18:13:40 10.81 mg/dL F 0.5-1.1 Urea nitrogen [Mass/volume] in Serum or Plasma --post dialysis 2023-11-28 17:20:34 23 mg/dL F 9.0-23.0 URR% 2023-10-24 19:34:14 71 % F Dialyzer RICKI 2023-10-24 19:34:14 1218 Calc F LENGTH OF DIALYSIS 2023-10-24 19:34:14 178 min F DIALYZER FLOW-QD 2023-10-24 19:34:14 500 mL/min F BSA RALPH 2023-10-24 19:34:14 1.97 sq m F PATIENT AGE 2023-10-24 19:34:14 68 Years F WEIGHT - PRE DAY 1 2023-10-24 19:34:14 95 kg F HEIGHT IN INCHES 2023-10-24 19:34:14 67 Inches F WEIGHT (KG) 2023-10-24 19:34:14 85.5 kg F WEIGHT - POST DAY 1 2023-10-24 19:34:14 91.9 kg F PRESCRIBED DAYS/WEEK 2023-10-24 19:34:14 3 Day/Wk F VM (KT/V MEAN VOL) 2023-10-24 19:34:14 34.1 F VT (KT/V TX VOL) 2023-10-24 19:34:14 35.1 L F Residual kt/v 2023-10-24 19:34:14 F Total Kt/V 2023-10-24 19:34:14 1.43 F nPCR 2023-10-24 19:34:14 0.82 G/KG/D F KT/V PRESCRIBED 2023-10-24 19:34:14 1.63 F TBW ([facility]) 2023-10-24 19:34:14 38.76 Liters F AMPUTATE FACTOR 2023-10-24 19:34:14 0 F spKt/V 2023-10-24 19:34:14 1.43 F eKt/V 2023-10-24 19:34:14 1.19 F stdKt/V (DIAL) 2023-10-24 19:34:14 N/A F Std Renal KT/V 2023-10-24 19:34:14 N/A F stdKT/V Total 2023-10-24 19:34:14 N/A F TOTAL HOURS/WEEK DIALYSIS 2023-10-24 19:34:14 5 hrs F BLOOD FLOW-QWB 2023-10-24 19:34:14 450 F CURRENT KRU 2023-10-24 19:34:14 F URR% 2023-10-24 19:34:14 71 % F LENGTH OF DIALYSIS 2023-10-24 19:34:14 178 min F Dialyzer RICKI 2023-10-24 19:34:14 1218 Calc F DIALYZER FLOW-QD 2023-10-24 19:34:14 500 mL/min F BSA RALPH 2023-10-24 19:34:14 1.97 sq m F PATIENT AGE 2023-10-24 19:34:14 68 Years F WEIGHT - POST DAY 1 2023-10-24 19:34:14 91.9 kg F WEIGHT - PRE DAY 1 2023-10-24 19:34:14 95 kg F HEIGHT IN INCHES 2023-10-24 19:34:14 67 Inches F WEIGHT (KG) 2023-10-24 19:34:14 85.5 kg F PRESCRIBED DAYS/WEEK 2023-10-24 19:34:14 3 Day/Wk F VM (KT/V MEAN VOL) 2023-10-24 19:34:14 34.1 F VT (KT/V TX VOL) 2023-10-24 19:34:14 35.1 L F Residual kt/v 2023-10-24 19:34:14 F KT/V PRESCRIBED 2023-10-24 19:34:14 1.63 F Total Kt/V 2023-10-24 19:34:14 1.43 F nPCR 2023-10-24 19:34:14 0.82 G/KG/D F TBW ([facility]) 2023-10-24 19:34:14 38.76 Liters F AMPUTATE FACTOR 2023-10-24 19:34:14 0 F spKt/V 2023-10-24 19:34:14 1.43 F eKt/V 2023-10-24 19:34:14 1.19 F Std Renal KT/V 2023-10-24 19:34:14 N/A F stdKt/V (DIAL) 2023-10-24 19:34:14 N/A F stdKT/V Total 2023-10-24 19:34:14 N/A F TOTAL HOURS/WEEK DIALYSIS 2023-10-24 19:34:14 5 hrs F BLOOD FLOW-QWB 2023-10-24 19:34:14 450 F CURRENT KRU 2023-10-24 19:34:14 F Urea nitrogen [Mass/volume] in Serum or Plasma 2023-10-24 19:32:42 83 mg/dL F 9.0-23.0 Creatinine [Mass/volume] in Serum or Plasma 2023-10-24 19:32:42 10.39 mg/dL F 0.5-1.1 Urea nitrogen [Mass/volume] in Serum or Plasma 2023-10-24 19:32:42 83 mg/dL F 9.0-23.0 Creatinine [Mass/volume] in Serum or Plasma 2023-10-24 19:32:42 10.39 mg/dL F 0.5-1.1 Urea nitrogen [Mass/volume] in Serum or Plasma --post dialysis 2023-10-24 19:08:45 24 mg/dL F 9.0-23.0 Urea nitrogen [Mass/volume] in Serum or Plasma --post dialysis 2023-10-24 19:08:45 24 mg/dL F 9.0-23.0 TBW ([facility]) 2022-10-12 07:28:50 38.96 Liters F Residual kt/v 2022-10-12 07:28:50 F HEIGHT IN INCHES 2022-10-12 07:28:50 67 Inches F DIALYZER FLOW-QD 2022-10-12 07:28:50 500 mL/min F WEIGHT (KG) 2022-10-12 07:28:50 93 kg F stdKt/V (DIAL) 2022-10-12 07:28:50 N/A F TOTAL HOURS/WEEK DIALYSIS 2022-10-12 07:28:50 3 F spKt/V 2022-10-12 07:28:50 1.46 F PRESCRIBED DAYS/WEEK 2022-10-12 07:28:50 3 Day/Wk F eKt/V 2022-10-12 07:28:50 1.21 F WEIGHT - PRE DAY 1 2022-10-12 07:28:50 96 kg F PATIENT AGE 2022-10-12 07:28:50 67 Years F Std Renal KT/V 2022-10-12 07:28:50 N/A F stdKT/V Total 2022-10-12 07:28:50 N/A F BLOOD FLOW-QWB 2022-10-12 07:28:50 450 F nPCR 2022-10-12 07:28:50 0.41 G/KG/D F AMPUTATE FACTOR 2022-10-12 07:28:50 0 F WEIGHT - POST DAY 1 2022-10-12 07:28:50 92.7 kg F Total Kt/V 2022-10-12 07:28:50 1.46 F VM (KT/V MEAN VOL) 2022-10-12 07:28:50 35.3 F VT (KT/V TX VOL) 2022-10-12 07:28:50 35.3 L F Dialyzer RICKI 2022-10-12 07:28:50 1218 Calc F URR% 2022-10-12 07:28:50 72 % F LENGTH OF DIALYSIS 2022-10-12 07:28:50 182 min F KT/V PRESCRIBED 2022-10-12 07:28:50 1.59 F DIALYZER FLOW-QD 2022-10-12 07:28:50 500 mL/min F URR% 2022-10-12 07:28:50 72 % F LENGTH OF DIALYSIS 2022-10-12 07:28:50 182 min F Dialyzer RICKI 2022-10-12 07:28:50 1218 Calc F PATIENT AGE 2022-10-12 07:28:50 67 Years F WEIGHT - POST DAY 1 2022-10-12 07:28:50 92.7 kg F WEIGHT - PRE DAY 1 2022-10-12 07:28:50 96 kg F WEIGHT (KG) 2022-10-12 07:28:50 93 kg F HEIGHT IN INCHES 2022-10-12 07:28:50 67 Inches F VM (KT/V MEAN VOL) 2022-10-12 07:28:50 35.3 F VT (KT/V TX VOL) 2022-10-12 07:28:50 35.3 L F PRESCRIBED DAYS/WEEK 2022-10-12 07:28:50 3 Day/Wk F Residual kt/v 2022-10-12 07:28:50 F KT/V PRESCRIBED 2022-10-12 07:28:50 1.59 F Total Kt/V 2022-10-12 07:28:50 1.46 F nPCR 2022-10-12 07:28:50 0.41 G/KG/D F AMPUTATE FACTOR 2022-10-12 07:28:50 0 F TBW ([facility]) 2022-10-12 07:28:50 38.96 Liters F spKt/V 2022-10-12 07:28:50 1.46 F eKt/V 2022-10-12 07:28:50 1.21 F stdKt/V (DIAL) 2022-10-12 07:28:50 N/A F Std Renal KT/V 2022-10-12 07:28:50 N/A F stdKT/V Total 2022-10-12 07:28:50 N/A F TOTAL HOURS/WEEK DIALYSIS 2022-10-12 07:28:50 3 F BLOOD FLOW-QWB 2022-10-12 07:28:50 450 F BSA RALPH 2022-10-12 07:28:50 2.04 sq m F CURRENT KRU 2022-10-12 07:28:50 F BSA RALPH 2022-10-12 07:28:50 2.04 sq m F CURRENT KRU 2022-10-12 07:28:50 F Urea nitrogen [Mass/volume] in Serum or Plasma --post dialysis 2022-10-11 17:47:17 14 mg/dL F 9.0-23.0 Urea nitrogen [Mass/volume] in Serum or Plasma --post dialysis 2022-10-11 17:47:17 14 mg/dL F 9.0-23.0 Creatinine [Mass/volume] in Serum or Plasma 2022-10-11 17:32:51 9.93 mg/dL F 0.5-1.1 Urea nitrogen [Mass/volume] in Serum or Plasma 2022-10-11 17:32:51 50 mg/dL F 9.0-23.0 Urea nitrogen [Mass/volume] in Serum or Plasma 2022-10-11 17:32:51 50 mg/dL F 9.0-23.0 Creatinine [Mass/volume] in Serum or Plasma 2022-10-11 17:32:51 9.93 mg/dL F 0.5-1.1 Creatinine [Mass/volume] in Serum or Plasma 2022-10-02 14:50:12 8.05 mg/dL F 0.5-1.1 Creatinine [Mass/volume] in Serum or Plasma 2022-09-04 20:09:17 7.7 mg/dL F 0.5-1.1 Creatinine [Mass/volume] in Serum or Plasma 2022-08-07 23:14:57 7.84 mg/dL F 0.5-1.1 Creatinine [Mass/volume] in Serum or Plasma 2022-08-07 23:14:57 7.84 mg/dL F 0.5-1.1 Creatinine [Mass/volume] in Serum or Plasma 2022-08-07 23:14:57 7.84 mg/dL F 0.5-1.1 Creatinine [Mass/volume] in Serum or Plasma 2022-07-03 17:16:54 7.66 mg/dL F 0.5-1.1 Creatinine [Mass/volume] in Serum or Plasma 2022-05-31 19:52:19 6.07 mg/dL F 0.5-1.1 Creatinine [Mass/volume] in Serum or Plasma 2022-05-31 19:52:19 6.07 mg/dL F 0.5-1.1 BLOOD FLOW-QWB Total Kt/V URR% DIALYZER FLOW-QD stdKT/V Total eKt/V HEIGHT IN INCHES VM (KT/V MEAN VOL) Dialyzer RICKI nPCR KT/V PRESCRIBED TBW ([facility]) Residual kt/v AMPUTATE FACTOR CURRENT KRU PATIENT AGE WEIGHT - POST DAY 1 VT (KT/V TX VOL) spKt/V WEIGHT (KG) stdKt/V (DIAL) LENGTH OF DIALYSIS BSA RALPH Std Renal KT/V TOTAL HOURS/WEEK DIALYSIS PRESCRIBED DAYS/WEEK WEIGHT - PRE DAY 1 Urea nitrogen [Mass/volume] in Serum or Plasma Urea nitrogen [Mass/volume] in Serum or Plasma --post dialysis Urea nitrogen [Mass/volume] in Serum or Plasma URR% Dialyzer RICKI DIALYZER FLOW-QD LENGTH OF DIALYSIS BSA RALPH PATIENT AGE WEIGHT - POST DAY 1 HEIGHT IN INCHES WEIGHT - PRE DAY 1 WEIGHT (KG) PRESCRIBED DAYS/WEEK VM (KT/V MEAN VOL) VT (KT/V TX VOL) KT/V PRESCRIBED Residual kt/v Total Kt/V nPCR AMPUTATE FACTOR TBW ([facility]) spKt/V eKt/V Std Renal KT/V stdKt/V (DIAL) stdKT/V Total TOTAL HOURS/WEEK DIALYSIS BLOOD FLOW-QWB CURRENT KRU Dialyzer RICKI LENGTH OF DIALYSIS DIALYZER FLOW-QD WEIGHT - POST DAY 1 BSA RALPH WEIGHT - PRE DAY 1 PRESCRIBED DAYS/WEEK VM (KT/V MEAN VOL) Residual kt/v VT (KT/V TX VOL) Total Kt/V nPCR KT/V PRESCRIBED TBW ([facility]) eKt/V Std Renal KT/V spKt/V stdKt/V (DIAL) TOTAL HOURS/WEEK DIALYSIS stdKT/V Total BLOOD FLOW-QWB CURRENT KRU Urea nitrogen [Mass/volume] in Serum or Plasma URR% DIALYZER FLOW-QD 0 mL/min F Dialyzer RICKI 0 Calc F LENGTH OF DIALYSIS 0 min F PATIENT AGE 1 Years F BSA RALPH WEIGHT - POST DAY 1 0 kg F WEIGHT - PRE DAY 1 0 kg F HEIGHT IN INCHES 0 Inches F WEIGHT (KG) 0 kg F PRESCRIBED DAYS/WEEK 0 Day/Wk F VT (KT/V TX VOL) VM (KT/V MEAN VOL) Residual kt/v KT/V PRESCRIBED Total Kt/V nPCR AMPUTATE FACTOR 0 F TBW ([facility]) spKt/V eKt/V stdKt/V (DIAL) Std Renal KT/V stdKT/V Total TOTAL HOURS/WEEK DIALYSIS 0 hrs F BLOOD FLOW-QWB 0 F CURRENT KRU URR% Dialyzer RICKI DIALYZER FLOW-QD LENGTH OF DIALYSIS Urea nitrogen [Mass/volume] in Serum or Plasma PATIENT AGE BSA ARLPH WEIGHT - PRE DAY 1 WEIGHT - POST DAY 1 HEIGHT IN INCHES WEIGHT (KG) PRESCRIBED DAYS/WEEK VM (KT/V MEAN VOL) VT (KT/V TX VOL) Total Kt/V Residual kt/v KT/V PRESCRIBED nPCR AMPUTATE FACTOR TBW ([facility]) spKt/V eKt/V stdKt/V (DIAL) Std Renal KT/V stdKT/V Total TOTAL HOURS/WEEK DIALYSIS BLOOD FLOW-QWB CURRENT KRU Anemia Description Draw Date Result/Unit Status Ref Range Result Comments HCT CALC HGBX3 2024-08-21 02:14:21 30.6 % F 37.0-47.0 Hemoglobin [Mass/volume] in Blood 2024-08-21 02:13:21 10.2 g/dL F 12.0-16.0 MCH [Entitic mass] by Automated count 2024-08-21 02:13:21 28.8 pg F 25.9-34.2 MCHC [Mass/volume] by Automated count 2024-08-21 02:13:21 30.7 g/dL F 29.6-35.3 Hematocrit [Volume Fraction] of Blood by Automated count 2024-08-21 02:13:21 33.3 % F 37.0-47.0 MCV [Entitic volume] by Automated count 2024-08-21 02:13:21 93.8 fL F 80.0-100.0 Erythrocyte distribution width [Ratio] by Automated count 2024-08-21 02:13:21 14.7 % F 11.0-15.0 Erythrocytes [#/volume] in Blood by Automated count 2024-08-21 02:13:21 3.55 x 10^6 cells/uL F 3.85-5.2 Platelets [#/volume] in Blood by Automated count 2024-08-21 02:13:21 196 x 10^3 cells/uL F 140.0-450.0 HCT CALC HGBX3 2024-08-07 01:28:54 29.7 % F 37.0-47.0 Hemoglobin [Mass/volume] in Blood 2024-08-07 01:28:11 9.9 g/dL F 12.0-16.0 Ferritin [Mass/volume] in Serum or Plasma 2024-07-26 02:31:46 665 ng/mL F 10.0-291.0 IRON SATURATION 2024-07-25 22:12:51 20 % F 16.0-46.0 TIBC 2024-07-25 22:12:51 212 ug/dL F 250.0-425.0 Iron [Mass/volume] in Serum or Plasma 2024-07-25 20:38:49 42 ug/dL F 50.0-170.0 Iron binding capacity.unsaturated [Mass/volume] in Serum or Plasma 2024-07-25 20:38:49 170 ug/dL F 80.0-375.0 HCT CALC HGBX3 2024-07-25 17:42:58 30.9 % F 37.0-47.0 MCH [Entitic mass] by Automated count 2024-07-25 17:42:13 29.9 pg F 25.9-34.2 Hemoglobin [Mass/volume] in Blood 2024-07-25 17:42:11 10.3 g/dL F 12.0-16.0 Erythrocyte distribution width [Ratio] by Automated count 2024-07-25 17:42:11 14.8 % F 11.0-15.0 Platelets [#/volume] in Blood by Automated count 2024-07-25 17:42:11 228 x 10^3 cells/uL F 140.0-450.0 MCHC [Mass/volume] by Automated count 2024-07-25 17:42:11 31.9 g/dL F 29.6-35.3 Erythrocytes [#/volume] in Blood by Automated count 2024-07-25 17:42:11 3.43 x 10^6 cells/uL F 3.85-5.2 Hematocrit [Volume Fraction] of Blood by Automated count 2024-07-25 17:42:11 32.2 % F 37.0-47.0 MCV [Entitic volume] by Automated count 2024-07-25 17:42:11 93.7 fL F 80.0-100.0 HCT CALC HGBX3 2024-07-10 00:00:11 28.2 % F 37.0-47.0 Hemoglobin [Mass/volume] in Blood 2024-07-09 23:59:13 9.4 g/dL F 12.0-16.0 HCT CALC HGBX3 2024-06-27 15:12:16 29.7 % F 37.0-47.0 Erythrocyte distribution width [Ratio] by Automated count 2024-06-27 15:11:10 13.9 % F 11.0-15.0 Hemoglobin [Mass/volume] in Blood 2024-06-27 15:11:10 9.9 g/dL F 12.0-16.0 Platelets [#/volume] in Blood by Automated count 2024-06-27 15:11:10 177 x 10^3 cells/uL F 140.0-450.0 MCH [Entitic mass] by Automated count 2024-06-27 15:11:10 31.3 pg F 25.9-34.2 MCHC [Mass/volume] by Automated count 2024-06-27 15:11:10 33 g/dL F 29.6-35.3 Erythrocytes [#/volume] in Blood by Automated count 2024-06-27 15:11:10 3.16 x 10^6 cells/uL F 3.85-5.2 Hematocrit [Volume Fraction] of Blood by Automated count 2024-06-27 15:11:10 30 % F 37.0-47.0 MCV [Entitic volume] by Automated count 2024-06-27 15:11:10 94.8 fL F 80.0-100.0 HCT CALC HGBX3 2024-06-06 22:41:23 28.8 % F 37.0-47.0 Hemoglobin [Mass/volume] in Blood 2024-06-06 22:40:11 9.6 g/dL F 12.0-16.0 HCT CALC HGBX3 2024-04-30 18:31:10 30.6 % F 37.0-47.0 Hemoglobin [Mass/volume] in Blood 2024-04-30 18:30:12 10.2 g/dL F 12.0-16.0 IRON SATURATION 2024-04-24 08:25:01 37 % F 16.0-46.0 TIBC 2024-04-24 08:25:01 212 ug/dL F 250.0-425.0 Ferritin [Mass/volume] in Serum or Plasma 2024-04-24 07:58:01 734 ng/mL F 10.0-291.0 Iron [Mass/volume] in Serum or Plasma 2024-04-24 07:36:34 79 ug/dL F 50.0-170.0 Iron binding capacity.unsaturated [Mass/volume] in Serum or Plasma 2024-04-24 07:36:34 133 ug/dL F 80.0-375.0 HCT CALC HGBX3 2024-04-23 20:06:45 33 % F 37.0-47.0 Erythrocyte distribution width [Ratio] by Automated count 2024-04-23 19:42:21 13.6 % F 11.0-15.0 Hematocrit [Volume Fraction] of Blood by Automated count 2024-04-23 19:42:21 34 % F 37.0-47.0 Erythrocytes [#/volume] in Blood by Automated count 2024-04-23 19:42:21 3.69 x 10'6 cells/uL F 3.85-5.2 Hemoglobin [Mass/volume] in Blood 2024-04-23 19:42:21 11 g/dL F 12.0-16.0 MCV [Entitic volume] by Automated count 2024-04-23 19:42:21 92.1 fL F 80.0-100.0 MCH [Entitic mass] by Automated count 2024-04-23 19:42:21 29.8 pg F 25.9-34.2 MCHC [Mass/volume] by Automated count 2024-04-23 19:42:21 32.4 g/dL F 29.6-35.3 Platelets [#/volume] in Blood by Automated count 2024-04-23 19:42:21 225 x 10'3 cells/uL F 140.0-450.0 HCT CALC HGBX3 2024-04-09 13:59:18 34.2 % F 37.0-47.0 Hemoglobin [Mass/volume] in Blood 2024-04-09 13:58:13 11.4 g/dL F 12.0-16.0 HCT CALC HGBX3 2024-03-28 04:45:41 34.2 % F 37.0-47.0 Erythrocyte distribution width [Ratio] by Automated count 2024-03-28 04:45:21 14.2 % F 11.0-15.0 Erythrocytes [#/volume] in Blood by Automated count 2024-03-28 04:45:21 3.68 x 10'6 cells/uL F 3.85-5.2 Hematocrit [Volume Fraction] of Blood by Automated count 2024-03-28 04:45:21 36.2 % F 37.0-47.0 Hemoglobin [Mass/volume] in Blood 2024-03-28 04:45:21 11.4 g/dL F 12.0-16.0 MCH [Entitic mass] by Automated count 2024-03-28 04:45:21 30.9 pg F 25.9-34.2 MCV [Entitic volume] by Automated count 2024-03-28 04:45:21 98.4 fL F 80.0-100.0 MCHC [Mass/volume] by Automated count 2024-03-28 04:45:21 31.5 g/dL F 29.6-35.3 Platelets [#/volume] in Blood by Automated count 2024-03-28 04:45:21 251 x 10'3 cells/uL F 140.0-450.0 IRON SATURATION 2024-03-27 07:36:20 36 % F 16.0-46.0 TIBC 2024-03-27 07:36:20 239 ug/dL F 250.0-425.0 Ferritin [Mass/volume] in Serum or Plasma 2024-03-27 07:17:25 760 ng/mL F 10.0-291.0 Iron binding capacity.unsaturated [Mass/volume] in Serum or Plasma 2024-03-27 07:09:49 154 ug/dL F 80.0-375.0 Iron [Mass/volume] in Serum or Plasma 2024-03-27 06:30:57 85 ug/dL F 50.0-170.0 HCT CALC HGBX3 2024-02-29 20:55:06 32.7 % F 37.0-47.0 Hemoglobin [Mass/volume] in Blood 2024-02-29 20:54:15 10.9 g/dL F 12.0-16.0 Ferritin [Mass/volume] in Serum or Plasma 2024-02-21 06:54:15 1053 ng/mL F 10.0-291.0 IRON SATURATION 2024-02-20 17:41:10 47 % F 16.0-46.0 TIBC 2024-02-20 17:41:10 227 ug/dL F 250.0-425.0 Iron [Mass/volume] in Serum or Plasma 2024-02-20 17:40:40 106 ug/dL F 50.0-170.0 Iron binding capacity.unsaturated [Mass/volume] in Serum or Plasma 2024-02-20 17:40:40 121 ug/dL F 80.0-375.0 HCT CALC HGBX3 2024-02-20 16:16:26 37.2 % F 37.0-47.0 Erythrocyte distribution width [Ratio] by Automated count 2024-02-20 16:16:15 14.8 % F 11.0-15.0 Hematocrit [Volume Fraction] of Blood by Automated count 2024-02-20 16:16:15 39.2 % F 37.0-47.0 Erythrocytes [#/volume] in Blood by Automated count 2024-02-20 16:16:15 4.05 x 10'6 cells/uL F 3.85-5.2 Hemoglobin [Mass/volume] in Blood 2024-02-20 16:16:15 12.4 g/dL F 12.0-16.0 MCV [Entitic volume] by Automated count 2024-02-20 16:16:15 96.8 fL F 80.0-100.0 MCH [Entitic mass] by Automated count 2024-02-20 16:16:15 30.7 pg F 25.9-34.2 Platelets [#/volume] in Blood by Automated count 2024-02-20 16:16:15 231 x 10'3 cells/uL F 140.0-450.0 MCHC [Mass/volume] by Automated count 2024-02-20 16:16:15 31.8 g/dL F 29.6-35.3 HCT CALC HGBX3 2024-02-06 19:46:26 36 % F 37.0-47.0 Hemoglobin [Mass/volume] in Blood 2024-02-06 19:45:26 12 g/dL F 12.0-16.0 Ferritin [Mass/volume] in Serum or Plasma 2024-01-31 03:02:18 867 ng/mL F 10.0-291.0 IRON SATURATION 2024-01-30 17:22:30 23 % F 16.0-46.0 TIBC 2024-01-30 17:22:30 245 ug/dL F 250.0-425.0 Iron [Mass/volume] in Serum or Plasma 2024-01-30 17:21:22 57 ug/dL F 50.0-170.0 Iron binding capacity.unsaturated [Mass/volume] in Serum or Plasma 2024-01-30 17:21:22 188 ug/dL F 80.0-375.0 HCT CALC HGBX3 2024-01-30 17:18:34 33.6 % F 37.0-47.0 Erythrocytes [#/volume] in Blood by Automated count 2024-01-30 17:18:27 3.66 x 10'6 cells/uL F 3.85-5.2 Erythrocyte distribution width [Ratio] by Automated count 2024-01-30 17:18:27 14.3 % F 11.0-15.0 Hematocrit [Volume Fraction] of Blood by Automated count 2024-01-30 17:18:27 34.8 % F 37.0-47.0 MCV [Entitic volume] by Automated count 2024-01-30 17:18:27 95 fL F 80.0-100.0 Hemoglobin [Mass/volume] in Blood 2024-01-30 17:18:27 11.2 g/dL F 12.0-16.0 MCH [Entitic mass] by Automated count 2024-01-30 17:18:27 30.7 pg F 25.9-34.2 Platelets [#/volume] in Blood by Automated count 2024-01-30 17:18:27 252 x 10'3 cells/uL F 140.0-450.0 MCHC [Mass/volume] by Automated count 2024-01-30 17:18:27 32.3 g/dL F 29.6-35.3 HCT CALC HGBX3 2024-01-23 19:58:41 F Recollect - Shipping temp out of range IRON SATURATION 2024-01-23 19:58:41 F Recollect - Shipping temp out of range TIBC 2024-01-23 19:58:41 F Recollect - Shipping temp out of range Erythrocyte distribution width [Ratio] by Automated count 2024-01-23 13:39:45 F Recollect - Shipping temp out of range Erythrocytes [#/volume] in Blood by Automated count 2024-01-23 13:39:45 F Recollect - Shipping temp out of range Hemoglobin [Mass/volume] in Blood 2024-01-23 13:39:45 F Recollect - Shipping temp out of range MCV [Entitic volume] by Automated count 2024-01-23 13:39:45 F Recollect - Shipping temp out of range Hematocrit [Volume Fraction] of Blood by Automated count 2024-01-23 13:39:45 F Recollect - Shipping temp out of range MCH [Entitic mass] by Automated count 2024-01-23 13:39:45 F Recollect - Shipping temp out of range MCHC [Mass/volume] by Automated count 2024-01-23 13:39:45 F Recollect - Shipping temp out of range Platelets [#/volume] in Blood by Automated count 2024-01-23 13:39:45 F Recollect - Shipping temp out of range Ferritin [Mass/volume] in Serum or Plasma 2024-01-23 13:39:45 F Recollect - Shipping temp out of range Iron [Mass/volume] in Serum or Plasma 2024-01-23 13:37:10 F Recollect - Shipping temp out of range Iron binding capacity.unsaturated [Mass/volume] in Serum or Plasma 2024-01-23 13:37:10 F Recollect - Shipping temp out of range HCT CALC HGBX3 2024-01-04 23:27:46 31.2 % F 37.0-47.0 Hemoglobin [Mass/volume] in Blood 2024-01-04 23:27:31 10.4 g/dL F 12.0-16.0 Ferritin [Mass/volume] in Serum or Plasma 2023-12-22 06:45:05 647 ng/mL F 10.0-291.0 IRON SATURATION 2023-12-21 16:56:39 17 % F 16.0-46.0 TIBC 2023-12-21 16:56:39 237 ug/dL F 250.0-425.0 Iron [Mass/volume] in Serum or Plasma 2023-12-21 16:55:26 40 ug/dL F 50.0-170.0 Iron binding capacity.unsaturated [Mass/volume] in Serum or Plasma 2023-12-21 16:55:26 197 ug/dL F 80.0-375.0 HCT CALC HGBX3 2023-12-21 15:53:07 32.4 % F 37.0-47.0 Erythrocyte distribution width [Ratio] by Automated count 2023-12-21 15:52:33 14.3 % F 11.0-15.0 Hematocrit [Volume Fraction] of Blood by Automated count 2023-12-21 15:52:33 34.3 % F 37.0-47.0 Erythrocytes [#/volume] in Blood by Automated count 2023-12-21 15:52:33 3.56 x 10'6 cells/uL F 3.85-5.2 Hemoglobin [Mass/volume] in Blood 2023-12-21 15:52:33 10.8 g/dL F 12.0-16.0 MCV [Entitic volume] by Automated count 2023-12-21 15:52:33 96.3 fL F 80.0-100.0 MCH [Entitic mass] by Automated count 2023-12-21 15:52:33 30.4 pg F 25.9-34.2 MCHC [Mass/volume] by Automated count 2023-12-21 15:52:33 31.6 g/dL F 29.6-35.3 Platelets [#/volume] in Blood by Automated count 2023-12-21 15:52:33 245 x 10'3 cells/uL F 140.0-450.0 Hemoglobin [Mass/volume] in Blood 2023-12-10 07:17:59 F Canceled - Specimen not received 5 days past draw date Ferritin [Mass/volume] in Serum or Plasma 2023-11-29 06:46:51 830 ng/mL F 10.0-291.0 IRON SATURATION 2023-11-29 05:05:43 33 % F 16.0-46.0 TIBC 2023-11-29 05:05:43 238 ug/dL F 250.0-425.0 Iron [Mass/volume] in Serum or Plasma 2023-11-29 04:59:13 79 ug/dL F 50.0-170.0 Iron binding capacity.unsaturated [Mass/volume] in Serum or Plasma 2023-11-29 04:59:13 159 ug/dL F 80.0-375.0 HCT CALC HGBX3 2023-11-28 16:22:11 30.6 % F 37.0-47.0 Erythrocyte distribution width [Ratio] by Automated count 2023-11-28 16:21:35 13.9 % F 11.0-15.0 Hemoglobin [Mass/volume] in Blood 2023-11-28 16:21:35 10.2 g/dL F 12.0-16.0 MCV [Entitic volume] by Automated count 2023-11-28 16:21:35 96.5 fL F 80.0-100.0 Erythrocytes [#/volume] in Blood by Automated count 2023-11-28 16:21:35 3.11 x 10'6 cells/uL F 3.85-5.2 MCH [Entitic mass] by Automated count 2023-11-28 16:21:35 32.9 pg F 25.9-34.2 Hematocrit [Volume Fraction] of Blood by Automated count 2023-11-28 16:21:35 30 % F 37.0-47.0 MCHC [Mass/volume] by Automated count 2023-11-28 16:21:35 34.1 g/dL F 29.6-35.3 Platelets [#/volume] in Blood by Automated count 2023-11-28 16:21:35 260 x 10'3 cells/uL F 140.0-450.0 IRON SATURATION 2023-10-25 05:20:46 20 % F 16.0-46.0 TIBC 2023-10-25 05:20:46 240 ug/dL F 250.0-425.0 IRON SATURATION 2023-10-25 05:20:46 20 % F 16.0-46.0 TIBC 2023-10-25 05:20:46 240 ug/dL F 250.0-425.0 Iron [Mass/volume] in Serum or Plasma 2023-10-25 05:09:23 47 ug/dL F 50.0-170.0 Iron binding capacity.unsaturated [Mass/volume] in Serum or Plasma 2023-10-25 05:09:23 193 ug/dL F 80.0-375.0 Iron [Mass/volume] in Serum or Plasma 2023-10-25 05:09:23 47 ug/dL F 50.0-170.0 Iron binding capacity.unsaturated [Mass/volume] in Serum or Plasma 2023-10-25 05:09:23 193 ug/dL F 80.0-375.0 Ferritin [Mass/volume] in Serum or Plasma 2023-10-25 00:21:55 904 ng/mL F 10.0-291.0 Ferritin [Mass/volume] in Serum or Plasma 2023-10-25 00:21:55 904 ng/mL F 10.0-291.0 HCT CALC HGBX3 2023-10-24 18:45:47 27 % F 37.0-47.0 HCT CALC HGBX3 2023-10-24 18:45:47 27 % F 37.0-47.0 Erythrocyte distribution width [Ratio] by Automated count 2023-10-24 18:45:37 14.4 % F 11.0-15.0 Hematocrit [Volume Fraction] of Blood by Automated count 2023-10-24 18:45:37 27.7 % F 37.0-47.0 Erythrocytes [#/volume] in Blood by Automated count 2023-10-24 18:45:37 2.86 x 10'6 cells/uL F 3.85-5.2 Hemoglobin [Mass/volume] in Blood 2023-10-24 18:45:37 9 g/dL F 12.0-16.0 MCV [Entitic volume] by Automated count 2023-10-24 18:45:37 97 fL F 80.0-100.0 MCH [Entitic mass] by Automated count 2023-10-24 18:45:37 31.4 pg F 25.9-34.2 MCHC [Mass/volume] by Automated count 2023-10-24 18:45:37 32.4 g/dL F 29.6-35.3 Platelets [#/volume] in Blood by Automated count 2023-10-24 18:45:37 227 x 10'3 cells/uL F 140.0-450.0 Erythrocyte distribution width [Ratio] by Automated count 2023-10-24 18:45:37 14.4 % F 11.0-15.0 Hematocrit [Volume Fraction] of Blood by Automated count 2023-10-24 18:45:37 27.7 % F 37.0-47.0 Erythrocytes [#/volume] in Blood by Automated count 2023-10-24 18:45:37 2.86 x 10'6 cells/uL F 3.85-5.2 Hemoglobin [Mass/volume] in Blood 2023-10-24 18:45:37 9 g/dL F 12.0-16.0 MCV [Entitic volume] by Automated count 2023-10-24 18:45:37 97 fL F 80.0-100.0 MCH [Entitic mass] by Automated count 2023-10-24 18:45:37 31.4 pg F 25.9-34.2 MCHC [Mass/volume] by Automated count 2023-10-24 18:45:37 32.4 g/dL F 29.6-35.3 Platelets [#/volume] in Blood by Automated count 2023-10-24 18:45:37 227 x 10^3 cells/uL F 140.0-450.0 IRON SATURATION 2022-10-12 07:34:11 24 % F 16.0-46.0 TIBC 2022-10-12 07:34:11 213 ug/dL F 250.0-425.0 IRON SATURATION 2022-10-12 07:34:11 24 % F 16.0-46.0 TIBC 2022-10-12 07:34:11 213 ug/dL F 250.0-425.0 Iron binding capacity.unsaturated [Mass/volume] in Serum or Plasma 2022-10-12 07:29:07 162 ug/dL F 80.0-375.0 Iron [Mass/volume] in Serum or Plasma 2022-10-12 07:29:07 51 ug/dL F 50.0-170.0 Iron [Mass/volume] in Serum or Plasma 2022-10-12 07:29:07 51 ug/dL F 50.0-170.0 Iron binding capacity.unsaturated [Mass/volume] in Serum or Plasma 2022-10-12 07:29:07 162 ug/dL F 80.0-375.0 Ferritin [Mass/volume] in Serum or Plasma 2022-10-12 02:10:10 594 ng/mL F 10.0-291.0 Ferritin [Mass/volume] in Serum or Plasma 2022-10-12 02:10:10 594 ng/mL F 10.0-291.0 HCT CALC HGBX3 2022-10-11 17:33:21 34.5 % F 37.0-47.0 HCT CALC HGBX3 2022-10-11 17:33:21 34.5 % F 37.0-47.0 Erythrocyte distribution width [Ratio] by Automated count 2022-10-11 17:32:53 15.9 % F 11.0-15.0 Hemoglobin [Mass/volume] in Blood 2022-10-11 17:32:53 11.5 g/dL F 12.0-16.0 Platelets [#/volume] in Blood by Automated count 2022-10-11 17:32:53 236 x 10^3 cells/uL F 150.0-400.0 Erythrocyte distribution width [Ratio] by Automated count 2022-10-11 17:32:53 15.9 % F 11.0-15.0 Hemoglobin [Mass/volume] in Blood 2022-10-11 17:32:53 11.5 g/dL F 12.0-16.0 Platelets [#/volume] in Blood by Automated count 2022-10-11 17:32:53 236 x 10'3 cells/uL F 150.0-400.0 MCH [Entitic mass] by Automated count 2022-10-11 17:32:51 29.2 pg F 27.0-31.0 MCHC [Mass/volume] by Automated count 2022-10-11 17:32:51 31.2 g/dL F 32.0-36.0 Hematocrit [Volume Fraction] of Blood by Automated count 2022-10-11 17:32:51 36.8 % F 37.0-47.0 Erythrocytes [#/volume] in Blood by Automated count 2022-10-11 17:32:51 3.93 x 10'6 cells/uL F 4.2-5.4 MCV [Entitic volume] by Automated count 2022-10-11 17:32:51 93.7 fL F 80.0-100.0 Erythrocytes [#/volume] in Blood by Automated count 2022-10-11 17:32:51 3.93 x 10'6 cells/uL F 4.2-5.4 Hematocrit [Volume Fraction] of Blood by Automated count 2022-10-11 17:32:51 36.8 % F 37.0-47.0 MCV [Entitic volume] by Automated count 2022-10-11 17:32:51 93.7 fL F 80.0-100.0 MCH [Entitic mass] by Automated count 2022-10-11 17:32:51 29.2 pg F 27.0-31.0 MCHC [Mass/volume] by Automated count 2022-10-11 17:32:51 31.2 g/dL F 32.0-36.0 HCT CALC HGBX3 2022-10-02 14:34:08 35.4 % F 37.0-47.0 Platelets [#/volume] in Blood by Automated count 2022-10-02 14:33:10 314 x 10^3 cells/uL F 150.0-400.0 Erythrocyte distribution width [Ratio] by Automated count 2022-10-02 14:33:09 15.3 % F 11.0-15.0 Erythrocytes [#/volume] in Blood by Automated count 2022-10-02 14:33:09 4.06 x 10'6 cells/uL F 4.2-5.4 Hematocrit [Volume Fraction] of Blood by Automated count 2022-10-02 14:33:09 37 % F 37.0-47.0 Hemoglobin [Mass/volume] in Blood 2022-10-02 14:33:09 11.8 g/dL F 12.0-16.0 MCV [Entitic volume] by Automated count 2022-10-02 14:33:09 91.2 fL F 80.0-100.0 MCH [Entitic mass] by Automated count 2022-10-02 14:33:09 29.1 pg F 27.0-31.0 MCHC [Mass/volume] by Automated count 2022-10-02 14:33:09 31.9 g/dL F 32.0-36.0 HCT CALC HGBX3 2022-09-05 00:53:01 36.6 % F 37.0-47.0 Erythrocyte distribution width [Ratio] by Automated count 2022-09-05 00:52:17 15.1 % F 11.0-15.0 Erythrocytes [#/volume] in Blood by Automated count 2022-09-05 00:52:17 4.13 x 10'6 cells/uL F 4.2-5.4 Hemoglobin [Mass/volume] in Blood 2022-09-05 00:52:17 12.2 g/dL F 12.0-16.0 Hematocrit [Volume Fraction] of Blood by Automated count 2022-09-05 00:52:17 38.1 % F 37.0-47.0 MCH [Entitic mass] by Automated count 2022-09-05 00:52:17 29.6 pg F 27.0-31.0 MCV [Entitic volume] by Automated count 2022-09-05 00:52:17 92.4 fL F 80.0-100.0 MCHC [Mass/volume] by Automated count 2022-09-05 00:52:17 32.1 g/dL F 32.0-36.0 Platelets [#/volume] in Blood by Automated count 2022-09-05 00:52:17 297 x 10^3 cells/uL F 150.0-400.0 IRON SATURATION 2022-08-08 06:55:26 15 % F 16.0-46.0 TIBC 2022-08-08 06:55:26 248 ug/dL F 250.0-425.0 IRON SATURATION 2022-08-08 06:55:26 15 % F 16.0-46.0 TIBC 2022-08-08 06:55:26 248 ug/dL F 250.0-425.0 IRON SATURATION 2022-08-08 06:55:26 15 % F 16.0-46.0 TIBC 2022-08-08 06:55:26 248 ug/dL F 250.0-425.0 Iron [Mass/volume] in Serum or Plasma 2022-08-08 06:45:26 36 ug/dL F 50.0-170.0 Iron binding capacity.unsaturated [Mass/volume] in Serum or Plasma 2022-08-08 06:45:26 212 ug/dL F 80.0-375.0 Iron [Mass/volume] in Serum or Plasma 2022-08-08 06:45:26 36 ug/dL F 50.0-170.0 Iron binding capacity.unsaturated [Mass/volume] in Serum or Plasma 2022-08-08 06:45:26 212 ug/dL F 80.0-375.0 Iron [Mass/volume] in Serum or Plasma 2022-08-08 06:45:26 36 ug/dL F 50.0-170.0 Iron binding capacity.unsaturated [Mass/volume] in Serum or Plasma 2022-08-08 06:45:26 212 ug/dL F 80.0-375.0 HCT CALC HGBX3 2022-08-07 23:06:28 33 % F 37.0-47.0 HCT CALC HGBX3 2022-08-07 23:06:28 33 % F 37.0-47.0 HCT CALC HGBX3 2022-08-07 23:06:28 33 % F 37.0-47.0 Erythrocyte distribution width [Ratio] by Automated count 2022-08-07 23:06:02 16.1 % F 11.0-15.0 Erythrocytes [#/volume] in Blood by Automated count 2022-08-07 23:06:02 3.71 x 10'6 cells/uL F 4.2-5.4 Hematocrit [Volume Fraction] of Blood by Automated count 2022-08-07 23:06:02 35.7 % F 37.0-47.0 Hemoglobin [Mass/volume] in Blood 2022-08-07 23:06:02 11 g/dL F 12.0-16.0 MCV [Entitic volume] by Automated count 2022-08-07 23:06:02 96.3 fL F 80.0-100.0 MCH [Entitic mass] by Automated count 2022-08-07 23:06:02 29.7 pg F 27.0-31.0 MCHC [Mass/volume] by Automated count 2022-08-07 23:06:02 30.8 g/dL F 32.0-36.0 Platelets [#/volume] in Blood by Automated count 2022-08-07 23:06:02 269 x 10'3 cells/uL F 150.0-400.0 Erythrocyte distribution width [Ratio] by Automated count 2022-08-07 23:06:02 16.1 % F 11.0-15.0 Hematocrit [Volume Fraction] of Blood by Automated count 2022-08-07 23:06:02 35.7 % F 37.0-47.0 Hemoglobin [Mass/volume] in Blood 2022-08-07 23:06:02 11 g/dL F 12.0-16.0 Erythrocytes [#/volume] in Blood by Automated count 2022-08-07 23:06:02 3.71 x 10'6 cells/uL F 4.2-5.4 MCHC [Mass/volume] by Automated count 2022-08-07 23:06:02 30.8 g/dL F 32.0-36.0 Platelets [#/volume] in Blood by Automated count 2022-08-07 23:06:02 269 x 10'3 cells/uL F 150.0-400.0 MCV [Entitic volume] by Automated count 2022-08-07 23:06:02 96.3 fL F 80.0-100.0 MCH [Entitic mass] by Automated count 2022-08-07 23:06:02 29.7 pg F 27.0-31.0 Erythrocyte distribution width [Ratio] by Automated count 2022-08-07 23:06:02 16.1 % F 11.0-15.0 Hemoglobin [Mass/volume] in Blood 2022-08-07 23:06:02 11 g/dL F 12.0-16.0 Platelets [#/volume] in Blood by Automated count 2022-08-07 23:06:02 269 x 10^3 cells/uL F 150.0-400.0 MCH [Entitic mass] by Automated count 2022-08-07 23:06:02 29.7 pg F 27.0-31.0 MCHC [Mass/volume] by Automated count 2022-08-07 23:06:02 30.8 g/dL F 32.0-36.0 Hematocrit [Volume Fraction] of Blood by Automated count 2022-08-07 23:06:02 35.7 % F 37.0-47.0 Erythrocytes [#/volume] in Blood by Automated count 2022-08-07 23:06:02 3.71 x 10'6 cells/uL F 4.2-5.4 MCV [Entitic volume] by Automated count 2022-08-07 23:06:02 96.3 fL F 80.0-100.0 Ferritin [Mass/volume] in Serum or Plasma 2022-08-07 21:21:58 598 ng/mL F 10.0-291.0 Ferritin [Mass/volume] in Serum or Plasma 2022-08-07 21:21:58 598 ng/mL F 10.0-291.0 Ferritin [Mass/volume] in Serum or Plasma 2022-08-07 21:21:58 598 ng/mL F 10.0-291.0 HCT CALC HGBX3 2022-07-03 17:28:37 26.4 % F 37.0-47.0 Hematocrit [Volume Fraction] of Blood by Automated count 2022-07-03 17:27:50 28.2 % F 37.0-47.0 Erythrocytes [#/volume] in Blood by Automated count 2022-07-03 17:27:50 3.17 x 10'6 cells/uL F 4.2-5.4 Hemoglobin [Mass/volume] in Blood 2022-07-03 17:27:50 8.8 g/dL F 12.0-16.0 Erythrocyte distribution width [Ratio] by Automated count 2022-07-03 17:27:50 15 % F 11.0-15.0 MCV [Entitic volume] by Automated count 2022-07-03 17:27:50 89 fL F 80.0-100.0 MCH [Entitic mass] by Automated count 2022-07-03 17:27:50 27.8 pg F 27.0-31.0 Platelets [#/volume] in Blood by Automated count 2022-07-03 17:27:50 321 x 10^3 cells/uL F 150.0-400.0 MCHC [Mass/volume] by Automated count 2022-07-03 17:27:50 31.3 g/dL F 32.0-36.0 IRON SATURATION 2022-06-01 06:27:16 15 % F 16.0-46.0 TIBC 2022-06-01 06:27:16 216 ug/dL F 250.0-425.0 IRON SATURATION 2022-06-01 06:27:16 15 % F 16.0-46.0 TIBC 2022-06-01 06:27:16 216 ug/dL F 250.0-425.0 Iron [Mass/volume] in Serum or Plasma 2022-06-01 06:21:41 32 ug/dL F 50.0-170.0 Iron binding capacity.unsaturated [Mass/volume] in Serum or Plasma 2022-06-01 06:21:41 184 ug/dL F 80.0-375.0 Iron binding capacity.unsaturated [Mass/volume] in Serum or Plasma 2022-06-01 06:21:41 184 ug/dL F 80.0-375.0 Iron [Mass/volume] in Serum or Plasma 2022-06-01 06:21:41 32 ug/dL F 50.0-170.0 HCT CALC HGBX3 2022-06-01 05:11:17 30 % F 37.0-47.0 HCT CALC HGBX3 2022-06-01 05:11:17 30 % F 37.0-47.0 Erythrocyte distribution width [Ratio] by Automated count 2022-06-01 05:10:35 15.3 % F 11.0-15.0 Erythrocytes [#/volume] in Blood by Automated count 2022-06-01 05:10:35 3.43 x 10'6 cells/uL F 4.2-5.4 Hemoglobin [Mass/volume] in Blood 2022-06-01 05:10:35 10 g/dL F 12.0-16.0 Hematocrit [Volume Fraction] of Blood by Automated count 2022-06-01 05:10:35 32.1 % F 37.0-47.0 MCV [Entitic volume] by Automated count 2022-06-01 05:10:35 93.5 fL F 80.0-100.0 MCH [Entitic mass] by Automated count 2022-06-01 05:10:35 29.2 pg F 27.0-31.0 MCHC [Mass/volume] by Automated count 2022-06-01 05:10:35 31.3 g/dL F 32.0-36.0 Platelets [#/volume] in Blood by Automated count 2022-06-01 05:10:35 318 x 10'3 cells/uL F 150.0-400.0 Erythrocyte distribution width [Ratio] by Automated count 2022-06-01 05:10:35 15.3 % F 11.0-15.0 Erythrocytes [#/volume] in Blood by Automated count 2022-06-01 05:10:35 3.43 x 10'6 cells/uL F 4.2-5.4 Hematocrit [Volume Fraction] of Blood by Automated count 2022-06-01 05:10:35 32.1 % F 37.0-47.0 Hemoglobin [Mass/volume] in Blood 2022-06-01 05:10:35 10 g/dL F 12.0-16.0 MCV [Entitic volume] by Automated count 2022-06-01 05:10:35 93.5 fL F 80.0-100.0 MCH [Entitic mass] by Automated count 2022-06-01 05:10:35 29.2 pg F 27.0-31.0 Platelets [#/volume] in Blood by Automated count 2022-06-01 05:10:35 318 x 10^3 cells/uL F 150.0-400.0 MCHC [Mass/volume] by Automated count 2022-06-01 05:10:35 31.3 g/dL F 32.0-36.0 Ferritin [Mass/volume] in Serum or Plasma 2022-05-31 20:04:53 837 ng/mL F 10.0-291.0 Ferritin [Mass/volume] in Serum or Plasma 2022-05-31 20:04:53 837 ng/mL F 10.0-291.0 ABSOLUTE RETIC COUNT Reticulocytes/100 erythrocytes in Blood by Automated count TIBC Iron [Mass/volume] in Serum or Plasma IRON SATURATION Iron binding capacity.unsaturated [Mass/volume] in Serum or Plasma Ferritin [Mass/volume] in Serum or Plasma MCHC [Mass/volume] by Automated count Hematocrit [Volume Fraction] of Blood by Automated count Erythrocyte distribution width [Ratio] by Automated count HCT CALC HGBX3 MCV [Entitic volume] by Automated count Erythrocytes [#/volume] in Blood by Automated count Hemoglobin [Mass/volume] in Blood Platelets [#/volume] in Blood by Automated count MCH [Entitic mass] by Automated count Comorbidities Description Draw Date Result/Unit Status Ref Range Result Comments Hemoglobin A1c/Hemoglobin.total in Blood 2024-07-25 18:06:10 5.2 %A1c F 0.0-5.6 Hemoglobin A1c/Hemoglobin.total in Blood 2024-04-23 21:04:37 6.2 %A1c F 0.0-5.6 Hemoglobin A1c/Hemoglobin.total in Blood 2024-01-30 18:02:40 6.1 %A1c F 0.0-5.6 Hemoglobin A1c/Hemoglobin.total in Blood 2024-01-23 13:39:45 F Recollect - Shipping temp out of range Hemoglobin A1c/Hemoglobin.total in Blood 2023-10-25 04:05:04 5.7 %A1c F 0.0-5.6 Hemoglobin A1c/Hemoglobin.total in Blood 2023-10-25 04:05:04 5.7 %A1c F 0.0-5.6 Hemoglobin A1c/Hemoglobin.total in Blood 2022-10-11 21:29:24 5.3 %A1c F 0.0-5.6 Hemoglobin A1c/Hemoglobin.total in Blood 2022-10-11 21:29:24 5.3 %A1c F 0.0-5.6 Hemoglobin A1c/Hemoglobin.total in Blood 2022-08-08 01:52:59 5 %A1c F 0.0-5.6 Hemoglobin A1c/Hemoglobin.total in Blood 2022-08-08 01:52:59 5 %A1c F 0.0-5.6 Hemoglobin A1c/Hemoglobin.total in Blood 2022-08-08 01:52:59 5 %A1c F 0.0-5.6 Thyrotropin [Units/volume] in Serum or Plasma by Detection limit <= 0.05 mIU/L 2022-06-04 08:05:04 F Canceled - Speci men not received 5 days past draw date Thyrotropin [Units/volume] in Serum or Plasma by Detection limit <= 0.05 mIU/L 2022-06-04 08:05:04 F Canceled - Speci men not received 5 days past draw date Hemoglobin A1c/Hemoglobin.total in Blood 2022-06-01 18:39:41 5.3 %A1c F 0.0-5.6 Hemoglobin A1c/Hemoglobin.total in Blood 2022-06-01 18:39:41 5.3 %A1c F 0.0-5.6 FluidBP Description Draw Date Result/Unit Status Ref Range Result Comments Sodium [Moles/volume] in Serum or Plasma 2024-08-21 07:15:12 138 mEq/L F 132.0-146.0 Sodium [Moles/volume] in Serum or Plasma 2024-07-25 20:38:49 140 mEq/L F 132.0-146.0 Sodium [Moles/volume] in Serum or Plasma 2024-06-26 18:16:29 136 mEq/L F 132.0-146.0 Sodium [Moles/volume] in Serum or Plasma 2024-04-24 07:36:34 140 mEq/L F 132.0-146.0 Sodium [Moles/volume] in Serum or Plasma 2024-03-27 06:30:53 137 mEq/L F 132.0-146.0 Sodium [Moles/volume] in Serum or Plasma 2024-02-20 17:40:40 138 mEq/L F 132.0-146.0 Sodium [Moles/volume] in Serum or Plasma 2024-01-30 17:21:22 137 mEq/L F 132.0-146.0 Sodium [Moles/volume] in Serum or Plasma 2024-01-23 13:37:10 F Recollect - Shipping temp out of range Sodium [Moles/volume] in Serum or Plasma 2023-12-21 16:55:28 137 mEq/L F 132.0-146.0 Sodium [Moles/volume] in Serum or Plasma 2023-11-29 04:59:13 136 mEq/L F 132.0-146.0 Sodium [Moles/volume] in Serum or Plasma 2023-10-25 05:09:23 139 mEq/L F 132.0-146.0 Sodium [Moles/volume] in Serum or Plasma 2023-10-25 05:09:23 139 mEq/L F 132.0-146.0 Sodium [Moles/volume] in Serum or Plasma 2022-10-11 17:32:51 140 mEq/L F 132.0-146.0 Sodium [Moles/volume] in Serum or Plasma 2022-10-11 17:32:51 140 mEq/L F 132.0-146.0 Sodium [Moles/volume] in Serum or Plasma 2022-10-02 14:50:12 140 mEq/L F 132.0-146.0 Sodium [Moles/volume] in Serum or Plasma 2022-09-04 20:09:17 138 mEq/L F 132.0-146.0 Sodium [Moles/volume] in Serum or Plasma 2022-08-07 23:14:57 140 mEq/L F 132.0-146.0 Sodium [Moles/volume] in Serum or Plasma 2022-08-07 23:14:57 140 mEq/L F 132.0-146.0 Sodium [Moles/volume] in Serum or Plasma 2022-08-07 23:14:57 140 mEq/L F 132.0-146.0 Sodium [Moles/volume] in Serum or Plasma 2022-07-03 17:16:54 138 mEq/L F 132.0-146.0 Sodium [Moles/volume] in Serum or Plasma 2022-05-31 19:52:19 141 mEq/L F 132.0-146.0 Sodium [Moles/volume] in Serum or Plasma 2022-05-31 19:52:19 141 mEq/L F 132.0-146.0 Sodium [Moles/volume] in Serum or Plasma General Description Draw Date Result/Unit Status Ref Range Result Comments Chloride [Moles/volume] in Serum or Plasma 2024-08-21 07:15:12 99 mEq/L F 99.0-109.0 Aspartate aminotransferase [Enzymatic activity/volume] in Serum or Plasma 2024-08-20 14:21:12 15 U/L F 0.0-33.0 Alanine aminotransferase [Enzymatic activity/volume] in Serum or Plasma 2024-08-20 14:21:12 9 U/L F 10.0-49.0 Chloride [Moles/volume] in Serum or Plasma 2024-07-25 20:38:49 101 mEq/L F 99.0-109.0 Aspartate aminotransferase [Enzymatic activity/volume] in Serum or Plasma 2024-07-25 18:11:13 14 U/L F 0.0-33.0 Alanine aminotransferase [Enzymatic activity/volume] in Serum or Plasma 2024-07-25 18:11:13 9 U/L F 10.0-49.0 Chloride [Moles/volume] in Serum or Plasma 2024-06-26 18:16:29 100 mEq/L F 99.0-109.0 Aspartate aminotransferase [Enzymatic activity/volume] in Serum or Plasma 2024-06-26 16:25:19 9 U/L F 0.0-33.0 Alanine aminotransferase [Enzymatic activity/volume] in Serum or Plasma 2024-06-26 16:25:19 9 U/L F 10.0-49.0 Chloride [Moles/volume] in Serum or Plasma 2024-04-24 07:36:34 101 mEq/L F 99.0-109.0 Alanine aminotransferase [Enzymatic activity/volume] in Serum or Plasma 2024-04-23 22:41:23 9 U/L F 10.0-49.0 Aspartate aminotransferase [Enzymatic activity/volume] in Serum or Plasma 2024-04-23 22:41:23 12 U/L F 0.0-33.0 Chloride [Moles/volume] in Serum or Plasma 2024-03-27 06:30:53 99 mEq/L F 99.0-109.0 Alanine aminotransferase [Enzymatic activity/volume] in Serum or Plasma 2024-03-27 01:40:19 9 U/L F 10.0-49.0 Aspartate aminotransferase [Enzymatic activity/volume] in Serum or Plasma 2024-03-27 01:40:19 10 U/L F 0.0-33.0 Chloride [Moles/volume] in Serum or Plasma 2024-02-20 17:40:40 99 mEq/L F 99.0-109.0 Aspartate aminotransferase [Enzymatic activity/volume] in Serum or Plasma 2024-02-20 13:49:08 11 U/L F 0.0-33.0 Alanine aminotransferase [Enzymatic activity/volume] in Serum or Plasma 2024-02-20 13:49:08 9 U/L F 10.0-49.0 Alanine aminotransferase [Enzymatic activity/volume] in Serum or Plasma 2024-02-20 13:49:08 9 U/L F 10.0-49.0 Aspartate aminotransferase [Enzymatic activity/volume] in Serum or Plasma 2024-02-20 13:49:08 11 U/L F 0.0-33.0 Chloride [Moles/volume] in Serum or Plasma 2024-01-30 17:21:22 99 mEq/L F 99.0-109.0 Alanine aminotransferase [Enzymatic activity/volume] in Serum or Plasma 2024-01-30 15:38:28 9 U/L F 10.0-49.0 Aspartate aminotransferase [Enzymatic activity/volume] in Serum or Plasma 2024-01-30 15:38:28 10 U/L F 0.0-33.0 Alanine aminotransferase [Enzymatic activity/volume] in Serum or Plasma 2024-01-23 13:37:10 F Recollect - Shipping temp out of range Chloride [Moles/volume] in Serum or Plasma 2024-01-23 13:37:10 F Recollect - Shipping temp out of range Aspartate aminotransferase [Enzymatic activity/volume] in Serum or Plasma 2024-01-23 13:37:10 F Recollect - Shipping temp out of range Chloride [Moles/volume] in Serum or Plasma 2023-12-21 16:55:28 99 mEq/L F 99.0-109.0 Alanine aminotransferase [Enzymatic activity/volume] in Serum or Plasma 2023-12-21 15:36:28 9 U/L F 10.0-49.0 Aspartate aminotransferase [Enzymatic activity/volume] in Serum or Plasma 2023-12-21 15:36:28 14 U/L F 0.0-33.0 Chloride [Moles/volume] in Serum or Plasma 2023-11-29 04:59:13 98 mEq/L F 99.0-109.0 Alanine aminotransferase [Enzymatic activity/volume] in Serum or Plasma 2023-11-28 18:13:40 9 U/L F 10.0-49.0 Aspartate aminotransferase [Enzymatic activity/volume] in Serum or Plasma 2023-11-28 18:13:40 11 U/L F 0.0-33.0 Chloride [Moles/volume] in Serum or Plasma 2023-10-25 05:09:23 101 mEq/L F 99.0-109.0 Chloride [Moles/volume] in Serum or Plasma 2023-10-25 05:09:23 101 mEq/L F 99.0-109.0 Alanine aminotransferase [Enzymatic activity/volume] in Serum or Plasma 2023-10-24 19:32:42 9 U/L F 10.0-49.0 Aspartate aminotransferase [Enzymatic activity/volume] in Serum or Plasma 2023-10-24 19:32:42 12 U/L F 0.0-33.0 Alanine aminotransferase [Enzymatic activity/volume] in Serum or Plasma 2023-10-24 19:32:42 9 U/L F 10.0-49.0 Aspartate aminotransferase [Enzymatic activity/volume] in Serum or Plasma 2023-10-24 19:32:42 12 U/L F 0.0-33.0 Aluminum [Mass/volume] in Serum or Plasma 2023-10-24 18:40:57 10 ug/L F 0.0-9.0 Aluminum [Mass/volume] in Serum or Plasma 2023-10-24 18:40:57 10 ug/L F 0.0-9.0 Aluminum [Mass/volume] in Serum or Plasma 2022-10-11 18:13:16 10 ug/L F 0.0-9.0 Aluminum [Mass/volume] in Serum or Plasma 2022-10-11 18:13:16 10 ug/L F 0.0-9.0 Aspartate aminotransferase [Enzymatic activity/volume] in Serum or Plasma 2022-10-11 17:32:51 12 U/L F 0.0-33.0 Alanine aminotransferase [Enzymatic activity/volume] in Serum or Plasma 2022-10-11 17:32:51 9 U/L F 10.0-49.0 Chloride [Moles/volume] in Serum or Plasma 2022-10-11 17:32:51 107 mEq/L F 99.0-109.0 Chloride [Moles/volume] in Serum or Plasma 2022-10-11 17:32:51 107 mEq/L F 99.0-109.0 Alanine aminotransferase [Enzymatic activity/volume] in Serum or Plasma 2022-10-11 17:32:51 9 U/L F 10.0-49.0 Aspartate aminotransferase [Enzymatic activity/volume] in Serum or Plasma 2022-10-11 17:32:51 12 U/L F 0.0-33.0 Chloride [Moles/volume] in Serum or Plasma 2022-10-02 14:50:12 106 mEq/L F 99.0-109.0 Alanine aminotransferase [Enzymatic activity/volume] in Serum or Plasma 2022-10-02 14:50:12 9 U/L F 10.0-49.0 Aspartate aminotransferase [Enzymatic activity/volume] in Serum or Plasma 2022-10-02 14:50:12 11 U/L F 0.0-33.0 Chloride [Moles/volume] in Serum or Plasma 2022-09-04 20:09:17 103 mEq/L F 99.0-109.0 Alanine aminotransferase [Enzymatic activity/volume] in Serum or Plasma 2022-09-04 20:09:17 9 U/L F 10.0-49.0 Aspartate aminotransferase [Enzymatic activity/volume] in Serum or Plasma 2022-09-04 20:09:17 10 U/L F 0.0-33.0 Chloride [Moles/volume] in Serum or Plasma 2022-08-07 23:14:57 104 mEq/L F 99.0-109.0 Alanine aminotransferase [Enzymatic activity/volume] in Serum or Plasma 2022-08-07 23:14:57 9 U/L F 10.0-49.0 Aspartate aminotransferase [Enzymatic activity/volume] in Serum or Plasma 2022-08-07 23:14:57 11 U/L F 0.0-33.0 Chloride [Moles/volume] in Serum or Plasma 2022-08-07 23:14:57 104 mEq/L F 99.0-109.0 Alanine aminotransferase [Enzymatic activity/volume] in Serum or Plasma 2022-08-07 23:14:57 9 U/L F 10.0-49.0 Aspartate aminotransferase [Enzymatic activity/volume] in Serum or Plasma 2022-08-07 23:14:57 11 U/L F 0.0-33.0 Aspartate aminotransferase [Enzymatic activity/volume] in Serum or Plasma 2022-08-07 23:14:57 11 U/L F 0.0-33.0 Alanine aminotransferase [Enzymatic activity/volume] in Serum or Plasma 2022-08-07 23:14:57 9 U/L F 10.0-49.0 Chloride [Moles/volume] in Serum or Plasma 2022-08-07 23:14:57 104 mEq/L F 99.0-109.0 Chloride [Moles/volume] in Serum or Plasma 2022-07-03 17:16:54 103 mEq/L F 99.0-109.0 Alanine aminotransferase [Enzymatic activity/volume] in Serum or Plasma 2022-07-03 17:16:54 9 U/L F 10.0-49.0 Aspartate aminotransferase [Enzymatic activity/volume] in Serum or Plasma 2022-07-03 17:16:54 13 U/L F 0.0-33.0 Aluminum [Mass/volume] in Serum or Plasma 2022-05-31 19:58:57 10 ug/L F 0.0-9.0 Aluminum [Mass/volume] in Serum or Plasma 2022-05-31 19:58:57 10 ug/L F 0.0-9.0 Chloride [Moles/volume] in Serum or Plasma 2022-05-31 19:52:19 104 mEq/L F 99.0-109.0 Alanine aminotransferase [Enzymatic activity/volume] in Serum or Plasma 2022-05-31 19:52:19 9 U/L F 10.0-49.0 Aspartate aminotransferase [Enzymatic activity/volume] in Serum or Plasma 2022-05-31 19:52:19 17 U/L F 0.0-33.0 Chloride [Moles/volume] in Serum or Plasma 2022-05-31 19:52:19 104 mEq/L F 99.0-109.0 Alanine aminotransferase [Enzymatic activity/volume] in Serum or Plasma 2022-05-31 19:52:19 9 U/L F 10.0-49.0 Aspartate aminotransferase [Enzymatic activity/volume] in Serum or Plasma 2022-05-31 19:52:19 17 U/L F 0.0-33.0 Chloride [Moles/volume] in Serum or Plasma InfectionVaccination Description Draw Date Result/Unit Status Ref Range Result Comments Neutrophils [#/volume] in Blood by Automated count 2024-08-21 02:13:21 3884 Cells/uL F 2000.0-8800. 0 Lymphocytes/100 leukocytes in Blood by Automated count 2024-08-21 02:13:21 22.2 % F Basophils [#/volume] in Blood by Automated count 2024-08-21 02:13:21 39 Cells/uL F 0.0-400.0 Basophils/100 leukocytes in Blood by Automated count 2024-08-21 02:13:21 0.6 % F Monocytes [#/volume] in Blood by Automated count 2024-08-21 02:13:21 512 Cells/uL F 0.0-1100.0 Lymphocytes [#/volume] in Blood by Automated count 2024-08-21 02:13:21 1456 Cells/uL F 620.0-3660.0 Monocytes/100 leukocytes in Blood by Automated count 2024-08-21 02:13:21 7.8 % F Leukocytes [#/volume] in Blood by Automated count 2024-08-21 02:13:21 6.6 x 10^3 cells/uL F 4.0-11.0 Neutrophils/100 leukocytes in Blood by Automated count 2024-08-21 02:13:21 59.2 % F Eosinophils/100 leukocytes in Blood by Automated count 2024-08-21 02:13:21 10.2 % F Eosinophils [#/volume] in Blood by Automated count 2024-08-21 02:13:21 669 Cells/uL F 0.0-700.0 Eosinophils/100 leukocytes in Blood by Automated count 2024-07-25 17:42:13 13 % F Basophils/100 leukocytes in Blood by Automated count 2024-07-25 17:42:11 0.9 % F Lymphocytes/100 leukocytes in Blood by Automated count 2024-07-25 17:42:11 19.3 % F Neutrophils/100 leukocytes in Blood by Automated count 2024-07-25 17:42:11 60.7 % F Monocytes/100 leukocytes in Blood by Automated count 2024-07-25 17:42:11 6 % F Monocytes [#/volume] in Blood by Automated count 2024-07-25 17:42:11 427 Cells/uL F 0.0-1100.0 Basophils [#/volume] in Blood by Automated count 2024-07-25 17:42:11 64 Cells/uL F 0.0-400.0 Eosinophils [#/volume] in Blood by Automated count 2024-07-25 17:42:11 926 Cells/uL F 0.0-700.0 Neutrophils [#/volume] in Blood by Automated count 2024-07-25 17:42:11 4322 Cells/uL F 2000.0-8800. 0 Leukocytes [#/volume] in Blood by Automated count 2024-07-25 17:42:11 7.1 x 10^3 cells/uL F 4.0-11.0 Lymphocytes [#/volume] in Blood by Automated count 2024-07-25 17:42:11 1374 Cells/uL F 620.0-3660.0 Basophils/100 leukocytes in Blood by Automated count 2024-06-27 15:11:11 0.3 % F Lymphocytes/100 leukocytes in Blood by Automated count 2024-06-27 15:11:11 21.8 % F Neutrophils/100 leukocytes in Blood by Automated count 2024-06-27 15:11:11 62.1 % F Monocytes/100 leukocytes in Blood by Automated count 2024-06-27 15:11:11 6 % F Eosinophils/100 leukocytes in Blood by Automated count 2024-06-27 15:11:11 9.8 % F Monocytes [#/volume] in Blood by Automated count 2024-06-27 15:11:11 413 Cells/uL F 0.0-1100.0 Basophils [#/volume] in Blood by Automated count 2024-06-27 15:11:11 21 Cells/uL F 0.0-400.0 Eosinophils [#/volume] in Blood by Automated count 2024-06-27 15:11:11 675 Cells/uL F 0.0-700.0 Neutrophils [#/volume] in Blood by Automated count 2024-06-27 15:11:10 4279 Cells/uL F 2000.0-8800. 0 Leukocytes [#/volume] in Blood by Automated count 2024-06-27 15:11:10 6.9 x 10^3 cells/uL F 4.0-11.0 Lymphocytes [#/volume] in Blood by Automated count 2024-06-27 15:11:10 1502 Cells/uL F 620.0-3660.0 Neutrophils/100 leukocytes in Blood by Automated count 2024-04-23 19:42:21 64.8 % F Lymphocytes/100 leukocytes in Blood by Automated count 2024-04-23 19:42:21 20.6 % F Basophils/100 leukocytes in Blood by Automated count 2024-04-23 19:42:21 0.2 % F Monocytes/100 leukocytes in Blood by Automated count 2024-04-23 19:42:21 6 % F Eosinophils/100 leukocytes in Blood by Automated count 2024-04-23 19:42:21 8.3 % F Leukocytes [#/volume] in Blood by Automated count 2024-04-23 19:42:21 9.1 x 10'3 cells/uL F 4.0-11.0 Neutrophils [#/volume] in Blood by Automated count 2024-04-23 19:42:21 5897 Cells/uL F 2000.0-8800. 0 Lymphocytes [#/volume] in Blood by Automated count 2024-04-23 19:42:21 1875 Cells/uL F 620.0-3660.0 Monocytes [#/volume] in Blood by Automated count 2024-04-23 19:42:21 546 Cells/uL F 0.0-1100.0 Basophils [#/volume] in Blood by Automated count 2024-04-23 19:42:21 18 Cells/uL F 0.0-400.0 Eosinophils [#/volume] in Blood by Automated count 2024-04-23 19:42:21 755 Cells/uL F 0.0-700.0 Lymphocytes/100 leukocytes in Blood by Automated count 2024-03-28 04:45:21 16.6 % F Monocytes/100 leukocytes in Blood by Automated count 2024-03-28 04:45:21 5.7 % F Neutrophils/100 leukocytes in Blood by Automated count 2024-03-28 04:45:21 69.4 % F Basophils/100 leukocytes in Blood by Automated count 2024-03-28 04:45:21 0.8 % F Eosinophils/100 leukocytes in Blood by Automated count 2024-03-28 04:45:21 7.5 % F Leukocytes [#/volume] in Blood by Automated count 2024-03-28 04:45:21 8.3 x 10'3 cells/uL F 4.0-11.0 Neutrophils [#/volume] in Blood by Automated count 2024-03-28 04:45:21 5753 Cell/uL F 2000.0-8800. 0 Monocytes [#/volume] in Blood by Automated count 2024-03-28 04:45:21 473 Cell/uL F 0.0-1100.0 Eosinophils [#/volume] in Blood by Automated count 2024-03-28 04:45:21 622 Cell/uL F 0.0-700.0 Basophils [#/volume] in Blood by Automated count 2024-03-28 04:45:21 66 Cell/uL F 0.0-400.0 Lymphocytes [#/volume] in Blood by Automated count 2024-03-28 04:45:21 1376 Cell/uL F 620.0-3660.0 Basophils/100 leukocytes in Blood by Automated count 2024-02-20 16:16:15 0.5 % F Neutrophils/100 leukocytes in Blood by Automated count 2024-02-20 16:16:15 65.4 % F Lymphocytes/100 leukocytes in Blood by Automated count 2024-02-20 16:16:15 18.9 % F Monocytes/100 leukocytes in Blood by Automated count 2024-02-20 16:16:15 5.4 % F Eosinophils/100 leukocytes in Blood by Automated count 2024-02-20 16:16:15 9.7 % F Leukocytes [#/volume] in Blood by Automated count 2024-02-20 16:16:15 8.6 x 10'3 cells/uL F 4.0-11.0 Lymphocytes [#/volume] in Blood by Automated count 2024-02-20 16:16:15 1624 Cell/uL F 620.0-3660.0 Neutrophils [#/volume] in Blood by Automated count 2024-02-20 16:16:15 5618 Cell/uL F 2000.0-8800. 0 Basophils [#/volume] in Blood by Automated count 2024-02-20 16:16:15 43 Cell/uL F 0.0-400.0 Monocytes [#/volume] in Blood by Automated count 2024-02-20 16:16:15 464 Cell/uL F 0.0-1100.0 Eosinophils [#/volume] in Blood by Automated count 2024-02-20 16:16:15 833 Cell/uL F 0.0-700.0 Basophils/100 leukocytes in Blood by Automated count 2024-01-30 17:18:27 1.1 % F Lymphocytes/100 leukocytes in Blood by Automated count 2024-01-30 17:18:27 20.1 % F Neutrophils/100 leukocytes in Blood by Automated count 2024-01-30 17:18:27 62.7 % F Eosinophils/100 leukocytes in Blood by Automated count 2024-01-30 17:18:27 10.6 % F Leukocytes [#/volume] in Blood by Automated count 2024-01-30 17:18:27 9.1 x 10'3 cells/uL F 4.0-11.0 Monocytes/100 leukocytes in Blood by Automated count 2024-01-30 17:18:27 5.6 % F Neutrophils [#/volume] in Blood by Automated count 2024-01-30 17:18:27 5712 Cell/uL F 2000.0-8800. 0 Monocytes [#/volume] in Blood by Automated count 2024-01-30 17:18:27 510 Cell/uL F 0.0-1100.0 Lymphocytes [#/volume] in Blood by Automated count 2024-01-30 17:18:27 1831 Cell/uL F 620.0-3660.0 Basophils [#/volume] in Blood by Automated count 2024-01-30 17:18:27 100 Cell/uL F 0.0-400.0 Eosinophils [#/volume] in Blood by Automated count 2024-01-30 17:18:27 966 Cell/uL F 0.0-700.0 Neutrophils/100 leukocytes in Blood by Automated count 2024-01-23 13:39:45 F Recollect - Shipping temp out of range Lymphocytes/100 leukocytes in Blood by Automated count 2024-01-23 13:39:45 F Recollect - Shipping temp out of range Basophils/100 leukocytes in Blood by Automated count 2024-01-23 13:39:45 F Recollect - Shipping temp out of range Eosinophils/100 leukocytes in Blood by Automated count 2024-01-23 13:39:45 F Recollect - Shipping temp out of range Monocytes/100 leukocytes in Blood by Automated count 2024-01-23 13:39:45 F Recollect - Shipping temp out of range Leukocytes [#/volume] in Blood by Automated count 2024-01-23 13:39:45 F Recollect - Shipping temp out of range Neutrophils [#/volume] in Blood by Automated count 2024-01-23 13:39:45 F Recollect - Shipping temp out of range Basophils [#/volume] in Blood by Automated count 2024-01-23 13:39:45 F Recollect - Shipping temp out of range Eosinophils [#/volume] in Blood by Automated count 2024-01-23 13:39:45 F Recollect - Shipping temp out of range Lymphocytes [#/volume] in Blood by Automated count 2024-01-23 13:39:45 F Recollect - Shipping temp out of range Monocytes [#/volume] in Blood by Automated count 2024-01-23 13:39:45 F Recollect - Shipping temp out of range Basophils/100 leukocytes in Blood by Automated count 2023-12-21 15:52:33 0.6 % F Neutrophils/100 leukocytes in Blood by Automated count 2023-12-21 15:52:33 66.1 % F Lymphocytes/100 leukocytes in Blood by Automated count 2023-12-21 15:52:33 17 % F Monocytes/100 leukocytes in Blood by Automated count 2023-12-21 15:52:33 6.3 % F Eosinophils/100 leukocytes in Blood by Automated count 2023-12-21 15:52:33 10 % F Leukocytes [#/volume] in Blood by Automated count 2023-12-21 15:52:33 8.2 x 10'3 cells/uL F 4.0-11.0 Lymphocytes [#/volume] in Blood by Automated count 2023-12-21 15:52:33 1396 Cell/uL F 620.0-3660.0 Neutrophils [#/volume] in Blood by Automated count 2023-12-21 15:52:33 5427 Cell/uL F 2000.0-8800. 0 Monocytes [#/volume] in Blood by Automated count 2023-12-21 15:52:33 517 Cell/uL F 0.0-1100.0 Basophils [#/volume] in Blood by Automated count 2023-12-21 15:52:33 49 Cell/uL F 0.0-400.0 Eosinophils [#/volume] in Blood by Automated count 2023-12-21 15:52:33 821 Cell/uL F 0.0-700.0 Neutrophils/100 leukocytes in Blood by Automated count 2023-11-28 16:21:35 67.8 % F Lymphocytes/100 leukocytes in Blood by Automated count 2023-11-28 16:21:35 19.5 % F Basophils/100 leukocytes in Blood by Automated count 2023-11-28 16:21:35 0.2 % F Monocytes/100 leukocytes in Blood by Automated count 2023-11-28 16:21:35 4.7 % F Eosinophils/100 leukocytes in Blood by Automated count 2023-11-28 16:21:35 7.8 % F Leukocytes [#/volume] in Blood by Automated count 2023-11-28 16:21:35 8.9 x 10'3 cells/uL F 4.0-11.0 Neutrophils [#/volume] in Blood by Automated count 2023-11-28 16:21:35 6007 Cell/uL F 2000.0-8800. 0 Lymphocytes [#/volume] in Blood by Automated count 2023-11-28 16:21:35 1728 Cell/uL F 620.0-3660.0 Eosinophils [#/volume] in Blood by Automated count 2023-11-28 16:21:35 691 Cell/uL F 0.0-700.0 Basophils [#/volume] in Blood by Automated count 2023-11-28 16:21:35 18 Cell/uL F 0.0-400.0 Monocytes [#/volume] in Blood by Automated count 2023-11-28 16:21:35 416 Cell/uL F 0.0-1100.0 Basophils/100 leukocytes in Blood by Automated count 2023-10-24 18:45:37 0.7 % F Lymphocytes/100 leukocytes in Blood by Automated count 2023-10-24 18:45:37 16.1 % F Neutrophils/100 leukocytes in Blood by Automated count 2023-10-24 18:45:37 68.6 % F Monocytes/100 leukocytes in Blood by Automated count 2023-10-24 18:45:37 5.5 % F Eosinophils/100 leukocytes in Blood by Automated count 2023-10-24 18:45:37 9.2 % F Leukocytes [#/volume] in Blood by Automated count 2023-10-24 18:45:37 7.8 x 10'3 cells/uL F 4.0-11.0 Neutrophils [#/volume] in Blood by Automated count 2023-10-24 18:45:37 5365 Cell/uL F 2000.0-8800. 0 Lymphocytes [#/volume] in Blood by Automated count 2023-10-24 18:45:37 1259 Cell/uL F 620.0-3660.0 Monocytes [#/volume] in Blood by Automated count 2023-10-24 18:45:37 430 Cell/uL F 0.0-1100.0 Basophils [#/volume] in Blood by Automated count 2023-10-24 18:45:37 55 Cell/uL F 0.0-400.0 Eosinophils [#/volume] in Blood by Automated count 2023-10-24 18:45:37 719 Cell/uL F 0.0-700.0 Neutrophils/100 leukocytes in Blood by Automated count 2023-10-24 18:45:37 68.6 % F Basophils/100 leukocytes in Blood by Automated count 2023-10-24 18:45:37 0.7 % F Lymphocytes/100 leukocytes in Blood by Automated count 2023-10-24 18:45:37 16.1 % F Monocytes/100 leukocytes in Blood by Automated count 2023-10-24 18:45:37 5.5 % F Eosinophils/100 leukocytes in Blood by Automated count 2023-10-24 18:45:37 9.2 % F Leukocytes [#/volume] in Blood by Automated count 2023-10-24 18:45:37 7.8 x 10^3 cells/uL F 4.0-11.0 Neutrophils [#/volume] in Blood by Automated count 2023-10-24 18:45:37 5365 Cell/uL F 2000.0-8800. 0 Lymphocytes [#/volume] in Blood by Automated count 2023-10-24 18:45:37 1259 Cell/uL F 620.0-3660.0 Monocytes [#/volume] in Blood by Automated count 2023-10-24 18:45:37 430 Cell/uL F 0.0-1100.0 Basophils [#/volume] in Blood by Automated count 2023-10-24 18:45:37 55 Cell/uL F 0.0-400.0 Eosinophils [#/volume] in Blood by Automated count 2023-10-24 18:45:37 719 Cell/uL F 0.0-700.0 Monocytes/100 leukocytes in Blood by Automated count 2022-10-11 17:32:53 4.6 % F Neutrophils/100 leukocytes in Blood by Automated count 2022-10-11 17:32:53 68 % F Neutrophils/100 leukocytes in Blood by Automated count 2022-10-11 17:32:53 68 % F Monocytes/100 leukocytes in Blood by Automated count 2022-10-11 17:32:53 4.6 % F Eosinophils/100 leukocytes in Blood by Automated count 2022-10-11 17:32:51 11.6 % F Lymphocytes/100 leukocytes in Blood by Automated count 2022-10-11 17:32:51 12.9 % F Monocytes [#/volume] in Blood by Automated count 2022-10-11 17:32:51 327.98 Cell/uL F 0.0-1100.0 Basophils [#/volume] in Blood by Automated count 2022-10-11 17:32:51 199.64 Cell/uL F 0.0-400.0 Eosinophils [#/volume] in Blood by Automated count 2022-10-11 17:32:51 827.08 Cell/uL F 0.0-700.0 Lymphocytes [#/volume] in Blood by Automated count 2022-10-11 17:32:51 919.77 Cell/uL F 1100.0-4800. 0 Neutrophils [#/volume] in Blood by Automated count 2022-10-11 17:32:51 4848.4 Cell/uL F 2000.0-8800. 0 Leukocytes [#/volume] in Blood by Automated count 2022-10-11 17:32:51 7.1 x 10^3 cells/uL F 4.5-11.0 Lymphocytes/100 leukocytes in Blood by Automated count 2022-10-11 17:32:51 12.9 % F Eosinophils/100 leukocytes in Blood by Automated count 2022-10-11 17:32:51 11.6 % F Leukocytes [#/volume] in Blood by Automated count 2022-10-11 17:32:51 7.1 x 10'3 cells/uL F 4.5-11.0 Neutrophils [#/volume] in Blood by Automated count 2022-10-11 17:32:51 4848.4 Cell/uL F 2000.0-8800. 0 Lymphocytes [#/volume] in Blood by Automated count 2022-10-11 17:32:51 919.77 Cell/uL F 1100.0-4800. 0 Monocytes [#/volume] in Blood by Automated count 2022-10-11 17:32:51 327.98 Cell/uL F 0.0-1100.0 Eosinophils [#/volume] in Blood by Automated count 2022-10-11 17:32:51 827.08 Cell/uL F 0.0-700.0 Basophils [#/volume] in Blood by Automated count 2022-10-11 17:32:51 199.64 Cell/uL F 0.0-400.0 Basophils/100 leukocytes in Blood by Automated count 2022-10-10 19:38:22 2.8 % F Basophils/100 leukocytes in Blood by Automated count 2022-10-10 19:38:22 2.8 % F Basophils [#/volume] in Blood by Automated count 2022-10-02 14:33:10 33.56 Cell/uL F 0.0-400.0 Lymphocytes/100 leukocytes in Blood by Automated count 2022-10-02 14:33:09 16.8 % F Monocytes/100 leukocytes in Blood by Automated count 2022-10-02 14:33:09 4.9 % F Eosinophils/100 leukocytes in Blood by Automated count 2022-10-02 14:33:09 9.8 % F Leukocytes [#/volume] in Blood by Automated count 2022-10-02 14:33:09 8.4 x 10^3 cells/uL F 4.5-11.0 Neutrophils [#/volume] in Blood by Automated count 2022-10-02 14:33:09 5721.98 Cell/uL F 2000.0-8800. 0 Lymphocytes [#/volume] in Blood by Automated count 2022-10-02 14:33:09 1409.52 Cell/uL F 1100.0-4800. 0 Monocytes [#/volume] in Blood by Automated count 2022-10-02 14:33:09 411.11 Cell/uL F 0.0-1100.0 Eosinophils [#/volume] in Blood by Automated count 2022-10-02 14:33:09 822.22 Cell/uL F 0.0-700.0 Basophils/100 leukocytes in Blood by Automated count 2022-10-02 14:33:09 0.4 % F Neutrophils/100 leukocytes in Blood by Automated count 2022-10-02 14:33:09 68.2 % F Lymphocytes/100 leukocytes in Blood by Automated count 2022-09-05 00:52:17 12 % F Neutrophils/100 leukocytes in Blood by Automated count 2022-09-05 00:52:17 74.6 % F Basophils/100 leukocytes in Blood by Automated count 2022-09-05 00:52:17 0.7 % F Eosinophils/100 leukocytes in Blood by Automated count 2022-09-05 00:52:17 6 % F Monocytes/100 leukocytes in Blood by Automated count 2022-09-05 00:52:17 6.7 % F Leukocytes [#/volume] in Blood by Automated count 2022-09-05 00:52:17 9.5 x 10^3 cells/uL F 4.5-11.0 Neutrophils [#/volume] in Blood by Automated count 2022-09-05 00:52:17 7087 Cell/uL F 2000.0-8800. 0 Monocytes [#/volume] in Blood by Automated count 2022-09-05 00:52:17 636.5 Cell/uL F 0.0-1100.0 Basophils [#/volume] in Blood by Automated count 2022-09-05 00:52:17 66.5 Cell/uL F 0.0-400.0 Lymphocytes [#/volume] in Blood by Automated count 2022-09-05 00:52:17 1140 Cell/uL F 1100.0-4800. 0 Eosinophils [#/volume] in Blood by Automated count 2022-09-05 00:52:17 570 Cell/uL F 0.0-700.0 Basophils/100 leukocytes in Blood by Automated count 2022-08-07 23:06:02 0.4 % F Lymphocytes/100 leukocytes in Blood by Automated count 2022-08-07 23:06:02 17.3 % F Monocytes/100 leukocytes in Blood by Automated count 2022-08-07 23:06:02 4.5 % F Neutrophils/100 leukocytes in Blood by Automated count 2022-08-07 23:06:02 70 % F Eosinophils/100 leukocytes in Blood by Automated count 2022-08-07 23:06:02 7.8 % F Leukocytes [#/volume] in Blood by Automated count 2022-08-07 23:06:02 8.3 x 10'3 cells/uL F 4.5-11.0 Neutrophils [#/volume] in Blood by Automated count 2022-08-07 23:06:02 5824 Cell/uL F 2000.0-8800. 0 Monocytes [#/volume] in Blood by Automated count 2022-08-07 23:06:02 374.4 Cell/uL F 0.0-1100.0 Basophils [#/volume] in Blood by Automated count 2022-08-07 23:06:02 33.28 Cell/uL F 0.0-400.0 Eosinophils [#/volume] in Blood by Automated count 2022-08-07 23:06:02 648.96 Cell/uL F 0.0-700.0 Lymphocytes [#/volume] in Blood by Automated count 2022-08-07 23:06:02 1439.36 Cell/uL F 1100.0-4800. 0 Basophils/100 leukocytes in Blood by Automated count 2022-08-07 23:06:02 0.4 % F Neutrophils/100 leukocytes in Blood by Automated count 2022-08-07 23:06:02 70 % F Lymphocytes/100 leukocytes in Blood by Automated count 2022-08-07 23:06:02 17.3 % F Monocytes/100 leukocytes in Blood by Automated count 2022-08-07 23:06:02 4.5 % F Eosinophils/100 leukocytes in Blood by Automated count 2022-08-07 23:06:02 7.8 % F Leukocytes [#/volume] in Blood by Automated count 2022-08-07 23:06:02 8.3 x 10'3 cells/uL F 4.5-11.0 Neutrophils [#/volume] in Blood by Automated count 2022-08-07 23:06:02 5824 Cell/uL F 2000.0-8800. 0 Lymphocytes [#/volume] in Blood by Automated count 2022-08-07 23:06:02 1439.36 Cell/uL F 1100.0-4800. 0 Monocytes [#/volume] in Blood by Automated count 2022-08-07 23:06:02 374.4 Cell/uL F 0.0-1100.0 Basophils [#/volume] in Blood by Automated count 2022-08-07 23:06:02 33.28 Cell/uL F 0.0-400.0 Eosinophils [#/volume] in Blood by Automated count 2022-08-07 23:06:02 648.96 Cell/uL F 0.0-700.0 Basophils/100 leukocytes in Blood by Automated count 2022-08-07 23:06:02 0.4 % F Lymphocytes/100 leukocytes in Blood by Automated count 2022-08-07 23:06:02 17.3 % F Monocytes/100 leukocytes in Blood by Automated count 2022-08-07 23:06:02 4.5 % F Eosinophils/100 leukocytes in Blood by Automated count 2022-08-07 23:06:02 7.8 % F Neutrophils/100 leukocytes in Blood by Automated count 2022-08-07 23:06:02 70 % F Monocytes [#/volume] in Blood by Automated count 2022-08-07 23:06:02 374.4 Cell/uL F 0.0-1100.0 Basophils [#/volume] in Blood by Automated count 2022-08-07 23:06:02 33.28 Cell/uL F 0.0-400.0 Eosinophils [#/volume] in Blood by Automated count 2022-08-07 23:06:02 648.96 Cell/uL F 0.0-700.0 Lymphocytes [#/volume] in Blood by Automated count 2022-08-07 23:06:02 1439.36 Cell/uL F 1100.0-4800. 0 Neutrophils [#/volume] in Blood by Automated count 2022-08-07 23:06:02 5824 Cell/uL F 2000.0-8800. 0 Leukocytes [#/volume] in Blood by Automated count 2022-08-07 23:06:02 8.3 x 10^3 cells/uL F 4.5-11.0 Neutrophils/100 leukocytes in Blood by Automated count 2022-07-03 17:27:50 73.7 % F Basophils/100 leukocytes in Blood by Automated count 2022-07-03 17:27:50 1.2 % F Lymphocytes/100 leukocytes in Blood by Automated count 2022-07-03 17:27:50 13.8 % F Monocytes/100 leukocytes in Blood by Automated count 2022-07-03 17:27:50 5.1 % F Eosinophils/100 leukocytes in Blood by Automated count 2022-07-03 17:27:50 6.2 % F Leukocytes [#/volume] in Blood by Automated count 2022-07-03 17:27:50 7.7 x 10^3 cells/uL F 4.5-11.0 Neutrophils [#/volume] in Blood by Automated count 2022-07-03 17:27:50 5674.9 Cell/uL F 2000.0-8800. 0 Lymphocytes [#/volume] in Blood by Automated count 2022-07-03 17:27:50 1062.6 Cell/uL F 1100.0-4800. 0 Monocytes [#/volume] in Blood by Automated count 2022-07-03 17:27:50 392.7 Cell/uL F 0.0-1100.0 Basophils [#/volume] in Blood by Automated count 2022-07-03 17:27:50 92.4 Cell/uL F 0.0-400.0 Eosinophils [#/volume] in Blood by Automated count 2022-07-03 17:27:50 477.4 Cell/uL F 0.0-700.0 Basophils/100 leukocytes in Blood by Automated count 2022-06-01 05:10:35 0.4 % F Neutrophils/100 leukocytes in Blood by Automated count 2022-06-01 05:10:35 72.9 % F Lymphocytes/100 leukocytes in Blood by Automated count 2022-06-01 05:10:35 15.5 % F Monocytes/100 leukocytes in Blood by Automated count 2022-06-01 05:10:35 5.7 % F Eosinophils/100 leukocytes in Blood by Automated count 2022-06-01 05:10:35 5.4 % F Leukocytes [#/volume] in Blood by Automated count 2022-06-01 05:10:35 7.9 x 10'3 cells/uL F 4.5-11.0 Monocytes [#/volume] in Blood by Automated count 2022-06-01 05:10:35 449.73 Cell/uL F 0.0-1100.0 Lymphocytes [#/volume] in Blood by Automated count 2022-06-01 05:10:35 1222.95 Cell/uL F 1100.0-4800. 0 Neutrophils [#/volume] in Blood by Automated count 2022-06-01 05:10:35 5751.81 Cell/uL F 2000.0-8800. 0 Basophils [#/volume] in Blood by Automated count 2022-06-01 05:10:35 31.56 Cell/uL F 0.0-400.0 Eosinophils [#/volume] in Blood by Automated count 2022-06-01 05:10:35 426.06 Cell/uL F 0.0-700.0 Basophils/100 leukocytes in Blood by Automated count 2022-06-01 05:10:35 0.4 % F Neutrophils/100 leukocytes in Blood by Automated count 2022-06-01 05:10:35 72.9 % F Monocytes/100 leukocytes in Blood by Automated count 2022-06-01 05:10:35 5.7 % F Lymphocytes/100 leukocytes in Blood by Automated count 2022-06-01 05:10:35 15.5 % F Eosinophils/100 leukocytes in Blood by Automated count 2022-06-01 05:10:35 5.4 % F Leukocytes [#/volume] in Blood by Automated count 2022-06-01 05:10:35 7.9 x 10^3 cells/uL F 4.5-11.0 Neutrophils [#/volume] in Blood by Automated count 2022-06-01 05:10:35 5751.81 Cell/uL F 2000.0-8800. 0 Lymphocytes [#/volume] in Blood by Automated count 2022-06-01 05:10:35 1222.95 Cell/uL F 1100.0-4800. 0 Monocytes [#/volume] in Blood by Automated count 2022-06-01 05:10:35 449.73 Cell/uL F 0.0-1100.0 Eosinophils [#/volume] in Blood by Automated count 2022-06-01 05:10:35 426.06 Cell/uL F 0.0-700.0 Basophils [#/volume] in Blood by Automated count 2022-06-01 05:10:35 31.56 Cell/uL F 0.0-400.0 Neutrophils [#/volume] in Blood by Automated count Lymphocytes/100 leukocytes in Blood by Automated count Leukocytes [#/volume] in Blood by Automated count Neutrophils/100 leukocytes in Blood by Automated count Monocytes [#/volume] in Blood by Automated count Monocytes/100 leukocytes in Blood by Automated count Basophils [#/volume] in Blood by Automated count Eosinophils/100 leukocytes in Blood by Automated count Lymphocytes [#/volume] in Blood by Automated count Basophils/100 leukocytes in Blood by Automated count Eosinophils [#/volume] in Blood by Automated count MineralBone Disorder Description Draw Date Result/Unit Status Ref Range Result Comments CA CORRECTED 2024-08-21 07:44:01 9.5 mg/dL F CA/PHOS PRODUCT 2024-08-21 07:42:15 22.3 Calc F 21.0-53.0 CA*PO4 CORRCTD 2024-08-21 07:42:15 22.9 Calc F 21.0-53.0 Phosphate [Mass/volume] in Serum or Plasma 2024-08-21 07:15:12 2.4 mg/dL F 2.4-5.1 Calcium [Mass/volume] in Serum or Plasma 2024-08-21 07:15:12 9.3 mg/dL F 8.7-10.4 Parathyrin.intact [Mass/volume] in Serum or Plasma 2024-08-20 18:50:26 176 pg/mL F 18.0-80.0 Alkaline phosphatase [Enzymatic activity/volume] in Serum or Plasma 2024-08-20 14:21:12 67 U/L F 46.0-116.0 CA CORRECTED 2024-07-25 22:14:31 9.5 mg/dL F CA*PO4 CORRCTD 2024-07-25 22:12:51 22.8 Calc F 21.0-53.0 CA/PHOS PRODUCT 2024-07-25 22:12:51 21.8 Calc F 21.0-53.0 Phosphate [Mass/volume] in Serum or Plasma 2024-07-25 20:38:49 2.4 mg/dL F 2.4-5.1 Calcium [Mass/volume] in Serum or Plasma 2024-07-25 20:38:49 9.1 mg/dL F 8.7-10.4 Parathyrin.intact [Mass/volume] in Serum or Plasma 2024-07-25 18:29:18 161 pg/mL F 18.0-80.0 Alkaline phosphatase [Enzymatic activity/volume] in Serum or Plasma 2024-07-25 18:11:13 67 U/L F 46.0-116.0 Parathyrin.intact [Mass/volume] in Serum or Plasma 2024-06-27 03:04:23 262 pg/mL F 18.0-80.0 CA CORRECTED 2024-06-26 18:27:46 9.5 mg/dL F CA*PO4 CORRCTD 2024-06-26 18:26:48 28.6 Calc F 21.0-53.0 CA/PHOS PRODUCT 2024-06-26 18:26:48 27.6 Calc F 21.0-53.0 Phosphate [Mass/volume] in Serum or Plasma 2024-06-26 18:16:44 3 mg/dL F 2.4-5.1 Calcium [Mass/volume] in Serum or Plasma 2024-06-26 18:16:44 9.2 mg/dL F 8.7-10.4 Alkaline phosphatase [Enzymatic activity/volume] in Serum or Plasma 2024-06-26 16:25:19 67 U/L F 46.0-116.0 CA CORRECTED 2024-04-24 08:25:55 9.3 mg/dL F CA/PHOS PRODUCT 2024-04-24 08:25:01 30.1 Calc F 21.0-53.0 CA*PO4 CORRCTD 2024-04-24 08:25:01 32.6 Calc F 21.0-53.0 Calcium [Mass/volume] in Serum or Plasma 2024-04-24 07:36:34 8.6 mg/dL F 8.7-10.4 Parathyrin.intact [Mass/volume] in Serum or Plasma 2024-04-24 01:44:25 227 pg/mL F 18.0-80.0 Alkaline phosphatase [Enzymatic activity/volume] in Serum or Plasma 2024-04-23 22:41:23 85 U/L F 46.0-116.0 Phosphate [Mass/volume] in Serum or Plasma 2024-04-23 22:41:23 3.5 mg/dL F 2.4-5.1 CA CORRECTED 2024-03-27 07:35:31 9.4 mg/dL F CA/PHOS PRODUCT 2024-03-27 06:39:44 39.6 Calc F 21.0-53.0 CA*PO4 CORRCTD 2024-03-27 06:39:44 40.4 Calc F 21.0-53.0 Calcium [Mass/volume] in Serum or Plasma 2024-03-27 06:30:53 9.2 mg/dL F 8.7-10.4 Parathyrin.intact [Mass/volume] in Serum or Plasma 2024-03-27 02:21:29 246 pg/mL F 18.0-80.0 Alkaline phosphatase [Enzymatic activity/volume] in Serum or Plasma 2024-03-27 01:40:19 88 U/L F 46.0-116.0 Phosphate [Mass/volume] in Serum or Plasma 2024-03-27 01:40:19 4.3 mg/dL F 2.4-5.1 CA CORRECTED 2024-02-20 17:43:12 9.6 mg/dL F CA/PHOS PRODUCT 2024-02-20 17:41:10 41.4 Calc F 21.0-53.0 CA*PO4 CORRCTD 2024-02-20 17:41:10 42.2 Calc F 21.0-53.0 Calcium [Mass/volume] in Serum or Plasma 2024-02-20 17:40:40 9.4 mg/dL F 8.7-10.4 Parathyrin.intact [Mass/volume] in Serum or Plasma 2024-02-20 16:40:22 324 pg/mL F 18.0-80.0 Phosphate [Mass/volume] in Serum or Plasma 2024-02-20 13:49:08 4.4 mg/dL F 2.4-5.1 Alkaline phosphatase [Enzymatic activity/volume] in Serum or Plasma 2024-02-20 13:49:08 88 U/L F 46.0-116.0 Alkaline phosphatase [Enzymatic activity/volume] in Serum or Plasma 2024-02-20 13:49:08 88 U/L F 46.0-116.0 Phosphate [Mass/volume] in Serum or Plasma 2024-02-20 13:49:08 4.4 mg/dL F 2.4-5.1 CA CORRECTED 2024-01-30 17:24:38 9.8 mg/dL F CA/PHOS PRODUCT 2024-01-30 17:22:30 36.5 Calc F 21.0-53.0 CA*PO4 CORRCTD 2024-01-30 17:22:30 37.2 Calc F 21.0-53.0 Calcium [Mass/volume] in Serum or Plasma 2024-01-30 17:21:22 9.6 mg/dL F 8.7-10.4 Parathyrin.intact [Mass/volume] in Serum or Plasma 2024-01-30 16:24:33 180 pg/mL F 18.0-80.0 Alkaline phosphatase [Enzymatic activity/volume] in Serum or Plasma 2024-01-30 15:38:28 92 U/L F 46.0-116.0 Phosphate [Mass/volume] in Serum or Plasma 2024-01-30 15:38:28 3.8 mg/dL F 2.4-5.1 CA/PHOS PRODUCT 2024-01-23 19:58:41 F Recollect - Shipping temp out of range CA*PO4 CORRCTD 2024-01-23 19:58:41 F Recollect - Shipping temp out of range Parathyrin.intact [Mass/volume] in Serum or Plasma 2024-01-23 13:39:45 F Recollect - Shipping temp out of range Alkaline phosphatase [Enzymatic activity/volume] in Serum or Plasma 2024-01-23 13:37:10 F Recollect - Shipping temp out of range Calcium [Mass/volume] in Serum or Plasma 2024-01-23 13:37:10 F Recollect - Shipping temp out of range Phosphate [Mass/volume] in Serum or Plasma 2024-01-23 13:37:10 F Recollect - Shipping temp out of range Parathyrin.intact [Mass/volume] in Serum or Plasma 2023-12-22 06:45:05 564 pg/mL F 18.0-80.0 CA CORRECTED 2023-12-21 16:58:48 8.9 mg/dL F CA/PHOS PRODUCT 2023-12-21 16:56:39 61.9 Calc F 21.0-53.0 CA*PO4 CORRCTD 2023-12-21 16:56:39 64.1 Calc F 21.0-53.0 Calcium [Mass/volume] in Serum or Plasma 2023-12-21 16:55:26 8.6 mg/dL F 8.7-10.4 Alkaline phosphatase [Enzymatic activity/volume] in Serum or Plasma 2023-12-21 15:36:28 77 U/L F 46.0-116.0 Phosphate [Mass/volume] in Serum or Plasma 2023-12-21 15:36:28 7.2 mg/dL F 2.4-5.1 Parathyrin.intact [Mass/volume] in Serum or Plasma 2023-11-29 06:46:51 576 pg/mL F 18.0-80.0 CA CORRECTED 2023-11-29 05:08:20 9.4 mg/dL F CA/PHOS PRODUCT 2023-11-29 05:05:43 59.4 Calc F 21.0-53.0 CA*PO4 CORRCTD 2023-11-29 05:05:43 62 Calc F 21.0-53.0 Calcium [Mass/volume] in Serum or Plasma 2023-11-29 04:59:13 9 mg/dL F 8.7-10.4 Alkaline phosphatase [Enzymatic activity/volume] in Serum or Plasma 2023-11-28 18:13:40 73 U/L F 46.0-116.0 Phosphate [Mass/volume] in Serum or Plasma 2023-11-28 18:13:40 6.6 mg/dL F 2.4-5.1 CA CORRECTED 2023-10-25 05:27:26 9.3 mg/dL F CA CORRECTED 2023-10-25 05:27:26 9.3 mg/dL F CA/PHOS PRODUCT 2023-10-25 05:20:46 60.3 Calc F 21.0-53.0 CA*PO4 CORRCTD 2023-10-25 05:20:46 62.3 Calc F 21.0-53.0 CA/PHOS PRODUCT 2023-10-25 05:20:46 60.3 Calc F 21.0-53.0 CA*PO4 CORRCTD 2023-10-25 05:20:46 62.3 Calc F 21.0-53.0 Calcium [Mass/volume] in Serum or Plasma 2023-10-25 05:09:23 9 mg/dL F 8.7-10.4 Calcium [Mass/volume] in Serum or Plasma 2023-10-25 05:09:23 9 mg/dL F 8.7-10.4 25-Hydroxyvitamin D3+25-Hydroxyvitamin D2 [Mass/volume] in Serum or Plasma 2023-10-25 00:22:14 20.4 ng/mL F 25-Hydroxyvitamin D3+25-Hydroxyvitamin D2 [Mass/volume] in Serum or Plasma 2023-10-25 00:22:14 20.4 ng/mL F Parathyrin.intact [Mass/volume] in Serum or Plasma 2023-10-25 00:21:53 747 pg/mL F 18.0-80.0 Parathyrin.intact [Mass/volume] in Serum or Plasma 2023-10-25 00:21:53 747 pg/mL F 18.0-80.0 Alkaline phosphatase [Enzymatic activity/volume] in Serum or Plasma 2023-10-24 19:32:42 71 U/L F 46.0-116.0 Phosphate [Mass/volume] in Serum or Plasma 2023-10-24 19:32:42 6.7 mg/dL F 2.4-5.1 Alkaline phosphatase [Enzymatic activity/volume] in Serum or Plasma 2023-10-24 19:32:42 71 U/L F 46.0-116.0 Phosphate [Mass/volume] in Serum or Plasma 2023-10-24 19:32:42 6.7 mg/dL F 2.4-5.1 CA CORRECTED 2022-10-13 03:56:17 9 mg/dL F CA CORRECTED 2022-10-13 03:56:17 9 mg/dL F CA/PHOS PRODUCT 2022-10-12 07:34:11 33.1 Calc F 21.0-53.0 CA*PO4 CORRCTD 2022-10-12 07:34:11 34.2 Calc F 21.0-53.0 CA/PHOS PRODUCT 2022-10-12 07:34:11 33.1 Calc F 21.0-53.0 CA*PO4 CORRCTD 2022-10-12 07:34:11 34.2 Calc F 21.0-53.0 Calcium [Mass/volume] in Serum or Plasma 2022-10-12 07:29:07 8.7 mg/dL F 8.7-10.4 Calcium [Mass/volume] in Serum or Plasma 2022-10-12 07:29:07 8.7 mg/dL F 8.7-10.4 Parathyrin.intact [Mass/volume] in Serum or Plasma 2022-10-12 02:10:10 232 pg/mL F 18.0-80.0 Parathyrin.intact [Mass/volume] in Serum or Plasma 2022-10-12 02:10:10 232 pg/mL F 18.0-80.0 25-Hydroxyvitamin D3+25-Hydroxyvitamin D2 [Mass/volume] in Serum or Plasma 2022-10-11 18:19:35 39.8 ng/mL F 30.0-100.0 25-Hydroxyvitamin D3+25-Hydroxyvitamin D2 [Mass/volume] in Serum or Plasma 2022-10-11 18:19:35 39.8 ng/mL F 30.0-100.0 Phosphate [Mass/volume] in Serum or Plasma 2022-10-11 17:32:51 3.8 mg/dL F 2.4-5.1 Alkaline phosphatase [Enzymatic activity/volume] in Serum or Plasma 2022-10-11 17:32:51 74 U/L F 46.0-116.0 Alkaline phosphatase [Enzymatic activity/volume] in Serum or Plasma 2022-10-11 17:32:51 74 U/L F 46.0-116.0 Phosphate [Mass/volume] in Serum or Plasma 2022-10-11 17:32:51 3.8 mg/dL F 2.4-5.1 Alkaline phosphatase [Enzymatic activity/volume] in Serum or Plasma 2022-10-02 14:50:12 73 U/L F 46.0-116.0 Alkaline phosphatase [Enzymatic activity/volume] in Serum or Plasma 2022-09-04 20:09:17 75 U/L F 46.0-116.0 Alkaline phosphatase [Enzymatic activity/volume] in Serum or Plasma 2022-08-07 23:14:57 68 U/L F 46.0-116.0 Alkaline phosphatase [Enzymatic activity/volume] in Serum or Plasma 2022-08-07 23:14:57 68 U/L F 46.0-116.0 Alkaline phosphatase [Enzymatic activity/volume] in Serum or Plasma 2022-08-07 23:14:57 68 U/L F 46.0-116.0 Alkaline phosphatase [Enzymatic activity/volume] in Serum or Plasma 2022-07-03 17:16:54 57 U/L F 46.0-116.0 25-Hydroxyvitamin D3+25-Hydroxyvitamin D2 [Mass/volume] in Serum or Plasma 2022-06-04 08:05:04 F Canceled - Speci men not received 5 days past draw date 25-Hydroxyvitamin D3+25-Hydroxyvitamin D2 [Mass/volume] in Serum or Plasma 2022-06-04 08:05:04 F Canceled - Speci men not received 5 days past draw date Alkaline phosphatase [Enzymatic activity/volume] in Serum or Plasma 2022-05-31 19:52:19 57 U/L F 46.0-116.0 Alkaline phosphatase [Enzymatic activity/volume] in Serum or Plasma 2022-05-31 19:52:19 57 U/L F 46.0-116.0 CA CORRECTED Calcium [Mass/volume] in Serum or Plasma CA*PO4 CORRCTD CA/PHOS PRODUCT Parathyrin.intact [Mass/volume] in Serum or Plasma CA CORRECTED F Nutrition Description Draw Date Result/Unit Status Ref Range Result Comments Potassium [Moles/volume] in Serum or Plasma 2024-08-21 07:15:12 4.1 mEq/L F 3.5-5.5 GLOBULIN 2024-08-20 14:21:54 2.9 g/dL F 0.9-5.0 A/G RATIO 2024-08-20 14:21:54 1.3 Calc F 1.0-2.5 Albumin [Mass/volume] in Serum or Plasma by Bromocresol green (BCG) dye binding method 2024-08-20 14:21:12 3.7 g/dL F 3.4-4.8 Protein [Mass/volume] in Serum or Plasma 2024-08-20 14:21:12 6.6 g/dL F 5.7-8.2 Bicarbonate [Moles/volume] in Serum or Plasma 2024-08-20 14:21:12 29 mEq/L F 20.0-31.0 Lactate dehydrogenase [Enzymatic activity/volume] in Serum or Plasma 2024-08-20 14:21:12 198 U/L F 120.0-246.0 Potassium [Moles/volume] in Serum or Plasma 2024-07-25 20:38:49 4.4 mEq/L F 3.5-5.5 A/G RATIO 2024-07-25 18:12:16 1.2 Calc F 1.0-2.5 GLOBULIN 2024-07-25 18:12:16 2.9 g/dL F 0.9-5.0 Lactate dehydrogenase [Enzymatic activity/volume] in Serum or Plasma 2024-07-25 18:11:13 182 U/L F 120.0-246.0 Bicarbonate [Moles/volume] in Serum or Plasma 2024-07-25 18:11:13 34 mEq/L F 20.0-31.0 Albumin [Mass/volume] in Serum or Plasma by Bromocresol green (BCG) dye binding method 2024-07-25 18:11:13 3.5 g/dL F 3.4-4.8 Protein [Mass/volume] in Serum or Plasma 2024-07-25 18:11:13 6.4 g/dL F 5.7-8.2 Potassium [Moles/volume] in Serum or Plasma 2024-06-26 18:16:29 4.9 mEq/L F 3.5-5.5 A/G RATIO 2024-06-26 16:26:01 1.2 Calc F 1.0-2.5 GLOBULIN 2024-06-26 16:26:01 2.9 g/dL F 0.9-5.0 Lactate dehydrogenase [Enzymatic activity/volume] in Serum or Plasma 2024-06-26 16:25:19 160 U/L F 120.0-246.0 Bicarbonate [Moles/volume] in Serum or Plasma 2024-06-26 16:25:19 28 mEq/L F 20.0-31.0 Albumin [Mass/volume] in Serum or Plasma by Bromocresol green (BCG) dye binding method 2024-06-26 16:25:19 3.6 g/dL F 3.4-4.8 Protein [Mass/volume] in Serum or Plasma 2024-06-26 16:25:19 6.5 g/dL F 5.7-8.2 Potassium [Moles/volume] in Serum or Plasma 2024-04-24 07:36:34 4.7 mEq/L F 3.5-5.5 A/G RATIO 2024-04-23 22:43:05 0.8 Calc F 1.0-2.5 GLOBULIN 2024-04-23 22:43:05 3.8 g/dL F 0.9-5.0 Albumin [Mass/volume] in Serum or Plasma by Bromocresol green (BCG) dye binding method 2024-04-23 22:41:23 3.1 g/dL F 3.4-4.8 Bicarbonate [Moles/volume] in Serum or Plasma 2024-04-23 22:41:23 29 mEq/L F 20.0-31.0 Lactate dehydrogenase [Enzymatic activity/volume] in Serum or Plasma 2024-04-23 22:41:23 171 U/L F 120.0-246.0 Protein [Mass/volume] in Serum or Plasma 2024-04-23 22:41:23 6.9 g/dL F 5.7-8.2 Potassium [Moles/volume] in Serum or Plasma 2024-03-27 06:30:53 5 mEq/L F 3.5-5.5 A/G RATIO 2024-03-27 01:41:09 1.2 Calc F 1.0-2.5 GLOBULIN 2024-03-27 01:41:09 3.2 g/dL F 0.9-5.0 Albumin [Mass/volume] in Serum or Plasma by Bromocresol green (BCG) dye binding method 2024-03-27 01:40:19 3.8 g/dL F 3.4-4.8 Bicarbonate [Moles/volume] in Serum or Plasma 2024-03-27 01:40:19 26 mEq/L F 20.0-31.0 Lactate dehydrogenase [Enzymatic activity/volume] in Serum or Plasma 2024-03-27 01:40:19 152 U/L F 120.0-246.0 Protein [Mass/volume] in Serum or Plasma 2024-03-27 01:40:19 7 g/dL F 5.7-8.2 Potassium [Moles/volume] in Serum or Plasma 2024-02-20 17:40:40 5 mEq/L F 3.5-5.5 A/G RATIO 2024-02-20 13:50:18 1.2 Calc F 1.0-2.5 GLOBULIN 2024-02-20 13:50:18 3.1 g/dL F 0.9-5.0 A/G RATIO 2024-02-20 13:50:18 1.2 Calc F 1.0-2.5 GLOBULIN 2024-02-20 13:50:18 3.1 g/dL F 0.9-5.0 Lactate dehydrogenase [Enzymatic activity/volume] in Serum or Plasma 2024-02-20 13:49:08 170 U/L F 120.0-246.0 Albumin [Mass/volume] in Serum or Plasma by Bromocresol green (BCG) dye binding method 2024-02-20 13:49:08 3.8 g/dL F 3.4-4.8 Protein [Mass/volume] in Serum or Plasma 2024-02-20 13:49:08 6.9 g/dL F 5.7-8.2 Bicarbonate [Moles/volume] in Serum or Plasma 2024-02-20 13:49:08 28 mEq/L F 20.0-31.0 Albumin [Mass/volume] in Serum or Plasma by Bromocresol green (BCG) dye binding method 2024-02-20 13:49:08 3.8 g/dL F 3.4-4.8 Bicarbonate [Moles/volume] in Serum or Plasma 2024-02-20 13:49:08 28 mEq/L F 20.0-31.0 Lactate dehydrogenase [Enzymatic activity/volume] in Serum or Plasma 2024-02-20 13:49:08 170 U/L F 120.0-246.0 Protein [Mass/volume] in Serum or Plasma 2024-02-20 13:49:08 6.9 g/dL F 5.7-8.2 Potassium [Moles/volume] in Serum or Plasma 2024-01-30 17:21:22 4.8 mEq/L F 3.5-5.5 A/G RATIO 2024-01-30 15:39:31 1.2 Calc F 1.0-2.5 GLOBULIN 2024-01-30 15:39:31 3.1 g/dL F 0.9-5.0 Albumin [Mass/volume] in Serum or Plasma by Bromocresol green (BCG) dye binding method 2024-01-30 15:38:28 3.8 g/dL F 3.4-4.8 Bicarbonate [Moles/volume] in Serum or Plasma 2024-01-30 15:38:28 28 mEq/L F 20.0-31.0 Lactate dehydrogenase [Enzymatic activity/volume] in Serum or Plasma 2024-01-30 15:38:28 173 U/L F 120.0-246.0 Protein [Mass/volume] in Serum or Plasma 2024-01-30 15:38:28 6.9 g/dL F 5.7-8.2 A/G RATIO 2024-01-23 19:58:41 F Recollect - Shipping temp out of range GLOBULIN 2024-01-23 19:58:41 F Recollect - Shipping temp out of range Albumin [Mass/volume] in Serum or Plasma by Bromocresol green (BCG) dye binding method 2024-01-23 13:37:10 F Recollect - Shipping temp out of range Bicarbonate [Moles/volume] in Serum or Plasma 2024-01-23 13:37:10 F Recollect - Shipping temp out of range Lactate dehydrogenase [Enzymatic activity/volume] in Serum or Plasma 2024-01-23 13:37:10 F Recollect - Shipping temp out of range Potassium [Moles/volume] in Serum or Plasma 2024-01-23 13:37:10 F Recollect - Shipping temp out of range Protein [Mass/volume] in Serum or Plasma 2024-01-23 13:37:10 F Recollect - Shipping temp out of range Potassium [Moles/volume] in Serum or Plasma 2023-12-21 16:55:28 5.5 mEq/L F 3.5-5.5 A/G RATIO 2023-12-21 15:37:27 1.3 Calc F 1.0-2.5 GLOBULIN 2023-12-21 15:37:27 2.8 g/dL F 0.9-5.0 Albumin [Mass/volume] in Serum or Plasma by Bromocresol green (BCG) dye binding method 2023-12-21 15:36:28 3.6 g/dL F 3.4-4.8 Bicarbonate [Moles/volume] in Serum or Plasma 2023-12-21 15:36:28 25 mEq/L F 20.0-31.0 Lactate dehydrogenase [Enzymatic activity/volume] in Serum or Plasma 2023-12-21 15:36:28 228 U/L F 120.0-246.0 Protein [Mass/volume] in Serum or Plasma 2023-12-21 15:36:28 6.4 g/dL F 5.7-8.2 Potassium [Moles/volume] in Serum or Plasma 2023-11-29 04:59:13 6.3 mEq/L F 3.5-5.5 A/G RATIO 2023-11-28 18:13:55 1.2 Calc F 1.0-2.5 GLOBULIN 2023-11-28 18:13:55 2.9 g/dL F 0.9-5.0 Albumin [Mass/volume] in Serum or Plasma by Bromocresol green (BCG) dye binding method 2023-11-28 18:13:40 3.5 g/dL F 3.4-4.8 Bicarbonate [Moles/volume] in Serum or Plasma 2023-11-28 18:13:40 23 mEq/L F 20.0-31.0 Lactate dehydrogenase [Enzymatic activity/volume] in Serum or Plasma 2023-11-28 18:13:40 176 U/L F 120.0-246.0 Protein [Mass/volume] in Serum or Plasma 2023-11-28 18:13:40 6.4 g/dL F 5.7-8.2 Potassium [Moles/volume] in Serum or Plasma 2023-10-25 05:09:23 5.5 mEq/L F 3.5-5.5 Potassium [Moles/volume] in Serum or Plasma 2023-10-25 05:09:23 5.5 mEq/L F 3.5-5.5 Cobalamin (Vitamin B12) [Mass/volume] in Serum or Plasma 2023-10-25 00:22:14 346 pg/mL F 211.0-911.0 Cobalamin (Vitamin B12) [Mass/volume] in Serum or Plasma 2023-10-25 00:22:14 346 pg/mL F 211.0-911.0 A/G RATIO 2023-10-24 19:32:50 1.1 Calc F 1.0-2.5 GLOBULIN 2023-10-24 19:32:50 3.2 g/dL F 0.9-5.0 LDL-CHOLESTEROL 2023-10-24 19:32:50 50 mg/dL F 0.0-99.0 VLDL-CHOL(CALC) 2023-10-24 19:32:50 22 mg/dL F 0.0-29.0 CHOL/HDL RATIO 2023-10-24 19:32:50 3.7 Calc F 3.3-5.0 GLOBULIN 2023-10-24 19:32:50 3.2 g/dL F 0.9-5.0 A/G RATIO 2023-10-24 19:32:50 1.1 Calc F 1.0-2.5 LDL-CHOLESTEROL 2023-10-24 19:32:50 50 mg/dL F 0.0-99.0 VLDL-CHOL(CALC) 2023-10-24 19:32:50 22 mg/dL F 0.0-29.0 CHOL/HDL RATIO 2023-10-24 19:32:50 3.7 Calc F 3.3-5.0 Albumin [Mass/volume] in Serum or Plasma by Bromocresol green (BCG) dye binding method 2023-10-24 19:32:42 3.6 g/dL F 3.4-4.8 Cholesterol [Mass/volume] in Serum or Plasma 2023-10-24 19:32:42 99 mg/dL F 0.0-199.0 Bicarbonate [Moles/volume] in Serum or Plasma 2023-10-24 19:32:42 26 mEq/L F 20.0-31.0 Lactate dehydrogenase [Enzymatic activity/volume] in Serum or Plasma 2023-10-24 19:32:42 241 U/L F 120.0-246.0 Protein [Mass/volume] in Serum or Plasma 2023-10-24 19:32:42 112 mg/dL F 0.0-149.0 Protein [Mass/volume] in Serum or Plasma 2023-10-24 19:32:42 6.8 g/dL F 5.7-8.2 Cholesterol in HDL [Mass/volume] in Serum or Plasma 2023-10-24 19:32:42 27 mg/dL F 40.0-60.0 Albumin [Mass/volume] in Serum or Plasma by Bromocresol green (BCG) dye binding method 2023-10-24 19:32:42 3.6 g/dL F 3.4-4.8 Cholesterol [Mass/volume] in Serum or Plasma 2023-10-24 19:32:42 99 mg/dL F 0.0-199.0 Bicarbonate [Moles/volume] in Serum or Plasma 2023-10-24 19:32:42 26 mEq/L F 20.0-31.0 Lactate dehydrogenase [Enzymatic activity/volume] in Serum or Plasma 2023-10-24 19:32:42 241 U/L F 120.0-246.0 Protein [Mass/volume] in Serum or Plasma 2023-10-24 19:32:42 112 mg/dL F 0.0-149.0 Protein [Mass/volume] in Serum or Plasma 2023-10-24 19:32:42 6.8 g/dL F 5.7-8.2 Cholesterol in HDL [Mass/volume] in Serum or Plasma 2023-10-24 19:32:42 27 mg/dL F 40.0-60.0 Cobalamin (Vitamin B12) [Mass/volume] in Serum or Plasma 2022-10-11 18:19:35 421 pg/mL F 211.0-911.0 Cobalamin (Vitamin B12) [Mass/volume] in Serum or Plasma 2022-10-11 18:19:35 421 pg/mL F 211.0-911.0 LDL-CHOLESTEROL 2022-10-11 17:34:10 40 mg/dL F 0.0-99.0 LDL-CHOLESTEROL 2022-10-11 17:34:10 40 mg/dL F 0.0-99.0 VLDL-CHOL(CALC) 2022-10-11 17:33:21 18 mg/dL F 0.0-29.0 GLOBULIN 2022-10-11 17:33:21 3.1 g/dL F 0.9-5.0 A/G RATIO 2022-10-11 17:33:21 1.2 Calc F 1.0-2.5 CHOL/HDL RATIO 2022-10-11 17:33:21 3 Calc F 3.3-5.0 A/G RATIO 2022-10-11 17:33:21 1.2 Calc F 1.0-2.5 GLOBULIN 2022-10-11 17:33:21 3.1 g/dL F 0.9-5.0 VLDL-CHOL(CALC) 2022-10-11 17:33:21 18 mg/dL F 0.0-29.0 CHOL/HDL RATIO 2022-10-11 17:33:21 3 Calc F 3.3-5.0 Protein [Mass/volume] in Serum or Plasma 2022-10-11 17:32:51 89 mg/dL F 0.0-149.0 Cholesterol [Mass/volume] in Serum or Plasma 2022-10-11 17:32:51 87 mg/dL F 0.0-199.0 Lactate dehydrogenase [Enzymatic activity/volume] in Serum or Plasma 2022-10-11 17:32:51 192 U/L F 120.0-246.0 Bicarbonate [Moles/volume] in Serum or Plasma 2022-10-11 17:32:51 22 mEq/L F 20.0-31.0 Albumin [Mass/volume] in Serum or Plasma by Bromocresol green (BCG) dye binding method 2022-10-11 17:32:51 3.6 g/dL F 3.4-4.8 Potassium [Moles/volume] in Serum or Plasma 2022-10-11 17:32:51 4.7 mEq/L F 3.5-5.5 Cholesterol in HDL [Mass/volume] in Serum or Plasma 2022-10-11 17:32:51 29 mg/dL F 40.0-60.0 Protein [Mass/volume] in Serum or Plasma 2022-10-11 17:32:51 6.7 g/dL F 5.7-8.2 Albumin [Mass/volume] in Serum or Plasma by Bromocresol green (BCG) dye binding method 2022-10-11 17:32:51 3.6 g/dL F 3.4-4.8 Cholesterol [Mass/volume] in Serum or Plasma 2022-10-11 17:32:51 87 mg/dL F 0.0-199.0 Bicarbonate [Moles/volume] in Serum or Plasma 2022-10-11 17:32:51 22 mEq/L F 20.0-31.0 Lactate dehydrogenase [Enzymatic activity/volume] in Serum or Plasma 2022-10-11 17:32:51 192 U/L F 120.0-246.0 Potassium [Moles/volume] in Serum or Plasma 2022-10-11 17:32:51 4.7 mEq/L F 3.5-5.5 Protein [Mass/volume] in Serum or Plasma 2022-10-11 17:32:51 6.7 g/dL F 5.7-8.2 Protein [Mass/volume] in Serum or Plasma 2022-10-11 17:32:51 89 mg/dL F 0.0-149.0 Cholesterol in HDL [Mass/volume] in Serum or Plasma 2022-10-11 17:32:51 29 mg/dL F 40.0-60.0 A/G RATIO 2022-10-02 14:51:02 1.1 Calc F 1.0-2.5 GLOBULIN 2022-10-02 14:51:02 3.4 g/dL F 0.9-5.0 Albumin [Mass/volume] in Serum or Plasma by Bromocresol green (BCG) dye binding method 2022-10-02 14:50:12 3.6 g/dL F 3.4-4.8 Bicarbonate [Moles/volume] in Serum or Plasma 2022-10-02 14:50:12 25 mEq/L F 20.0-31.0 Lactate dehydrogenase [Enzymatic activity/volume] in Serum or Plasma 2022-10-02 14:50:12 220 U/L F 120.0-246.0 Potassium [Moles/volume] in Serum or Plasma 2022-10-02 14:50:12 4.7 mEq/L F 3.5-5.5 Protein [Mass/volume] in Serum or Plasma 2022-10-02 14:50:12 7 g/dL F 5.7-8.2 A/G RATIO 2022-09-04 20:09:32 1.1 Calc F 1.0-2.5 GLOBULIN 2022-09-04 20:09:32 3.3 g/dL F 0.9-5.0 Albumin [Mass/volume] in Serum or Plasma by Bromocresol green (BCG) dye binding method 2022-09-04 20:09:17 3.6 g/dL F 3.4-4.8 Bicarbonate [Moles/volume] in Serum or Plasma 2022-09-04 20:09:17 26 mEq/L F 20.0-31.0 Lactate dehydrogenase [Enzymatic activity/volume] in Serum or Plasma 2022-09-04 20:09:17 190 U/L F 120.0-246.0 Potassium [Moles/volume] in Serum or Plasma 2022-09-04 20:09:17 4.7 mEq/L F 3.5-5.5 Protein [Mass/volume] in Serum or Plasma 2022-09-04 20:09:17 6.9 g/dL F 5.7-8.2 A/G RATIO 2022-08-07 23:15:15 1.3 Calc F 1.0-2.5 GLOBULIN 2022-08-07 23:15:15 3 g/dL F 0.9-5.0 A/G RATIO 2022-08-07 23:15:15 1.3 Calc F 1.0-2.5 GLOBULIN 2022-08-07 23:15:15 3 g/dL F 0.9-5.0 GLOBULIN 2022-08-07 23:15:15 3 g/dL F 0.9-5.0 A/G RATIO 2022-08-07 23:15:15 1.3 Calc F 1.0-2.5 Albumin [Mass/volume] in Serum or Plasma by Bromocresol green (BCG) dye binding method 2022-08-07 23:14:57 3.8 g/dL F 3.4-4.8 Bicarbonate [Moles/volume] in Serum or Plasma 2022-08-07 23:14:57 27 mEq/L F 20.0-31.0 Potassium [Moles/volume] in Serum or Plasma 2022-08-07 23:14:57 4.7 mEq/L F 3.5-5.5 Lactate dehydrogenase [Enzymatic activity/volume] in Serum or Plasma 2022-08-07 23:14:57 177 U/L F 120.0-246.0 Protein [Mass/volume] in Serum or Plasma 2022-08-07 23:14:57 6.8 g/dL F 5.7-8.2 Albumin [Mass/volume] in Serum or Plasma by Bromocresol green (BCG) dye binding method 2022-08-07 23:14:57 3.8 g/dL F 3.4-4.8 Bicarbonate [Moles/volume] in Serum or Plasma 2022-08-07 23:14:57 27 mEq/L F 20.0-31.0 Lactate dehydrogenase [Enzymatic activity/volume] in Serum or Plasma 2022-08-07 23:14:57 177 U/L F 120.0-246.0 Potassium [Moles/volume] in Serum or Plasma 2022-08-07 23:14:57 4.7 mEq/L F 3.5-5.5 Protein [Mass/volume] in Serum or Plasma 2022-08-07 23:14:57 6.8 g/dL F 5.7-8.2 Lactate dehydrogenase [Enzymatic activity/volume] in Serum or Plasma 2022-08-07 23:14:57 177 U/L F 120.0-246.0 Bicarbonate [Moles/volume] in Serum or Plasma 2022-08-07 23:14:57 27 mEq/L F 20.0-31.0 Albumin [Mass/volume] in Serum or Plasma by Bromocresol green (BCG) dye binding method 2022-08-07 23:14:57 3.8 g/dL F 3.4-4.8 Potassium [Moles/volume] in Serum or Plasma 2022-08-07 23:14:57 4.7 mEq/L F 3.5-5.5 Protein [Mass/volume] in Serum or Plasma 2022-08-07 23:14:57 6.8 g/dL F 5.7-8.2 A/G RATIO 2022-07-03 17:17:26 1 Calc F 1.0-2.5 GLOBULIN 2022-07-03 17:17:26 3.5 g/dL F 0.9-5.0 Albumin [Mass/volume] in Serum or Plasma by Bromocresol green (BCG) dye binding method 2022-07-03 17:16:54 3.4 g/dL F 3.4-4.8 Bicarbonate [Moles/volume] in Serum or Plasma 2022-07-03 17:16:54 29 mEq/L F 20.0-31.0 Lactate dehydrogenase [Enzymatic activity/volume] in Serum or Plasma 2022-07-03 17:16:54 255 U/L F 120.0-246.0 Potassium [Moles/volume] in Serum or Plasma 2022-07-03 17:16:54 5.2 mEq/L F 3.5-5.5 Protein [Mass/volume] in Serum or Plasma 2022-07-03 17:16:54 6.9 g/dL F 5.7-8.2 Folate [Mass/volume] in Serum or Plasma 2022-06-04 08:05:04 F Canceled - Specimen not received 5 days past draw date Cobalamin (Vitamin B12) [Mass/volume] in Serum or Plasma 2022-06-04 08:05:04 F Canceled - Specimen not received 5 days past draw date Folate [Mass/volume] in Serum or Plasma 2022-06-04 08:05:04 F Canceled - Specimen not received 5 days past draw date Cobalamin (Vitamin B12) [Mass/volume] in Serum or Plasma 2022-06-04 08:05:04 F Canceled - Specimen not received 5 days past draw date A/G RATIO 2022-05-31 19:53:14 1.1 Calc F 1.0-2.5 GLOBULIN 2022-05-31 19:53:14 3 g/dL F 0.9-5.0 LDL-CHOLESTEROL 2022-05-31 19:53:14 63 mg/dL F 0.0-99.0 CHOL/HDL RATIO 2022-05-31 19:53:14 2.7 Calc F 3.3-5.0 VLDL-CHOL(CALC) 2022-05-31 19:53:14 11 mg/dL F 0.0-29.0 A/G RATIO 2022-05-31 19:53:14 1.1 Calc F 1.0-2.5 GLOBULIN 2022-05-31 19:53:14 3 g/dL F 0.9-5.0 LDL-CHOLESTEROL 2022-05-31 19:53:14 63 mg/dL F 0.0-99.0 VLDL-CHOL(CALC) 2022-05-31 19:53:14 11 mg/dL F 0.0-29.0 CHOL/HDL RATIO 2022-05-31 19:53:14 2.7 Calc F 3.3-5.0 Albumin [Mass/volume] in Serum or Plasma by Bromocresol green (BCG) dye binding method 2022-05-31 19:52:19 3.2 g/dL F 3.4-4.8 Cholesterol [Mass/volume] in Serum or Plasma 2022-05-31 19:52:19 118 mg/dL F 0.0-199.0 Bicarbonate [Moles/volume] in Serum or Plasma 2022-05-31 19:52:19 31 mEq/L F 20.0-31.0 Lactate dehydrogenase [Enzymatic activity/volume] in Serum or Plasma 2022-05-31 19:52:19 237 U/L F 120.0-246.0 Potassium [Moles/volume] in Serum or Plasma 2022-05-31 19:52:19 4.5 mEq/L F 3.5-5.5 Protein [Mass/volume] in Serum or Plasma 2022-05-31 19:52:19 6.2 g/dL F 5.7-8.2 Protein [Mass/volume] in Serum or Plasma 2022-05-31 19:52:19 53 mg/dL F 0.0-149.0 Cholesterol in HDL [Mass/volume] in Serum or Plasma 2022-05-31 19:52:19 44 mg/dL F 40.0-60.0 Albumin [Mass/volume] in Serum or Plasma by Bromocresol green (BCG) dye binding method 2022-05-31 19:52:19 3.2 g/dL F 3.4-4.8 Cholesterol [Mass/volume] in Serum or Plasma 2022-05-31 19:52:19 118 mg/dL F 0.0-199.0 Bicarbonate [Moles/volume] in Serum or Plasma 2022-05-31 19:52:19 31 mEq/L F 20.0-31.0 Potassium [Moles/volume] in Serum or Plasma 2022-05-31 19:52:19 4.5 mEq/L F 3.5-5.5 Lactate dehydrogenase [Enzymatic activity/volume] in Serum or Plasma 2022-05-31 19:52:19 237 U/L F 120.0-246.0 Protein [Mass/volume] in Serum or Plasma 2022-05-31 19:52:19 6.2 g/dL F 5.7-8.2 Protein [Mass/volume] in Serum or Plasma 2022-05-31 19:52:19 53 mg/dL F 0.0-149.0 Cholesterol in HDL [Mass/volume] in Serum or Plasma 2022-05-31 19:52:19 44 mg/dL F 40.0-60.0 Potassium [Moles/volume] in Serum or Plasma Encounters No encounter information to report Immunizations Ordered Immunization Name Filled Immunization Name Date Status Comments Refusal Reason Pneumococcal conjugate PCV20, polysaccharide [id number] conjugate, adjuvant, 2024-07-01 17:04:44 Influenza, high-dose, quadrivalent, 2024-03-11 17:14:37 Influenza Vaccination 2022-03-21 05:00:00 Hepatitis B Vaccination 2019-07-06 06:00:00 Hepatitis B Vaccination 2019-03-04 05:00:00 Hepatitis B Vaccination 2019-02-02 05:00:00 Hepatitis B Vaccination 2018-12-29 05:00:00 Pneumococcal Vaccination 2018-04-25 06:00:00 Plan of Treatment Planned Activity Provider Planned Date Details Commen ts Diagnostic Test Pending Pinky Melendez 2024-02-09 05:00:00 Ferritin [Mass/volume] in Serum or Plasma [code = 2276-4] Diagnostic Test Pending Pinky Melendez 2023-08-11 06:00:00 Hemoglobin [Mass/volume] in Blood [code = 718-7] Diagnostic Test Pending [facility] 2023-03-10 05:00:00 Alanine aminotransferase [Enzymatic activity/volume] in Serum or Plasma [code = 1742-6] Diagnostic Test Pending [facility] 2022-12-08 05:00:00 Alanine aminotransferase [Enzymatic activity/volume] in Serum or Plasma [code = 1742-6] Diagnostic Test Pending [facility] 2022-10-06 05:00:00 Sodium [Moles/volume] in Serum or Plasma [code = 2951-2] Diagnostic Test Pending [facility] 2022-10-06 05:00:00 Potassium [Moles/volume] in Serum or Plasma [code = 2823-3] Diagnostic Test Pending [facility] 2022-11-08 05:00:00 Parathyrin.intact [Mass/volume] in Serum or Plasma [code = 2731-8] Diagnostic Test Pending [facility] 2022-10-06 05:00:00 25-Hydroxyvitamin D3+25-Hydroxyvitamin D2 [Mass/volume] in Serum or Plasma [code = 49751-7] Diagnostic Test Pending [facility] 2022-10-06 05:00:00 Creatinine [Mass/volume] in Serum or Plasma [code = 2160-0] Diagnostic Test Pending [facility] 2022-10-06 05:00:00 Cobalamin (Vitamin B12) [Mass/volume] in Serum or Plasma [code = 2132-9] Diagnostic Test Pending [facility] 2022-10-06 05:00:00 Hemoglobin A1c/Hemoglobin.total in Blood [code = 4548-4] Diagnostic Test Pending [facility] 2022-10-06 05:00:00 Aluminum [Mass/volume] in Serum or Plasma [code = 5574-9] Diagnostic Test Pending [facility] 2024-05-01 07:31:[address] [code = 2265] Diagnostic Test Pending [facility] 2024-05-01 07:31:34 Reticulocytes/100 erythrocytes in Blood by Automated count [code = 00206-5] Diagnostic Test Pending [facility] 2024-04-10 06:24:42 Ferritin [Mass/volume] in Serum or Plasma [code = 2276-4] Diagnostic Test Pending [facility] 2024-03-15 05:00:00 Hemoglobin [Mass/volume] in Blood [code = 718-7] Diagnostic Test Pending [facility] 2024-08-07 20:18:18 In-Center Hemodialysis Treatment [code = FIT088] Diagnostic Test Pending [facility] 2024-01-14 10:00:16 In-Center Hemodialysis Treatment [code = QBS441] Diet Order [facility] December 17, 2022 Diet Calorie 25 kcal/kg Fluid Value 1000 mL/d Phosphorus Value 1100 mg/d Potassium Value 2500 mg/d Protein Value 1.3 gm/kg Sodium Value 2000 mg/d Calculated Weight 80 kg dietary_diet_modification Carb Controlle d;
--- OUTSIDE RECORDS SUMMARY | 2024-08-22 08:11 | XMS_ITS | Encounter Summary ---
Author Organization [facility] Address [address] [place] [address] Care Team Providers Care Building Economist Name Role Phone Meggan Littlejohn MD Primary Care Provider Gilles Morrison Primary Care Provider Encounter Details Date Type Department Care Team (Late st Contact Info) Description 03/10/[address] [facility] Outpatient Visit [facility] [address] [place] [address] [place] [id number] [facility] [address] [place] [address] Social History Tobacco Use Types Packs/Day Years Used Date Smoking Tobacco: Never Smokeless Tobacco: Never Alcohol Use Standard Drinks/Week Comments No 0 (1 standard drink = 0.6 oz pur e alcohol) Sex and Gender Information Value Date Recorded Sex Assigned at Not on file Gender Identity Not on file Sexual Orientation Not on file documented as of this encounter Plan of Treatment Upcoming Encounters Date Type Department Care Team (Late Contact Info) Description 10/01/2024 11:00 AM CDT Appointment [facility] [address], [address] [place] [address] documented as of this encounter Visit Diagnoses Not on filedocumented in this encounter Additional Health Concerns Infection Onset Date Last Indicated Resolved Time COVID-19 Under Investigation 04/12/2022 04/12/2022 04/12/2022 3:05 PM CDT documented as of this encounter Care Teams Building Economist Relationship Specialty Start Date End Date Meggan Littlejohn MD [address] [place], [place] [id number] PCP - General Internal Medicine 03/10/18 07/14/18 Gilles Morrison APRN-FARM MANAGEMENT ADVISER [address] [place] [address] PCP - General Nurse Practitioner 07/15/18 documented as of this encounter
--- OUTSIDE RECORDS SUMMARY | 2024-08-22 08:11 | XMS_ITS | Referral Summary ---
Author Organization [facility] [employer] Address [address] [facility] [place] [address] Care Team Providers Care Photographic Laboratory Supervisor Name Role Phone Prince Gilles Parminder NAM-SOURCE WATER PROTECTION SPECIALIST Primary Care Provider Source Comments [facility] Affiliates and Associated Physician Practices is amultiple site organization consisting of ambulatory clinics and hospital sitesin [place], [place], [place] and [place]. This disclosure is being madepursuant to the Care Everywhere program and may not contain all information available regarding this patient. Last updated 18.[facility] [employer] Allergies Active Allergy Reactions Criticality Noted Date Comments Captopril-Hydrochlorothiazide Urticaria Medium Hydrochlorothiazide Rash Medium 03/10/2018 Medications * Be aware that medications may not be up to date on this document. Alwaysverify current medications with the patient. Medication Sig Dispensed Refills Start Date End Date Status carvedilol (COREG) 12.5 MG tablet Take 1 (one) tablet by mouth 2 times daily Active NIFEdipine CR 24hr (ADALAT CC) 60 MG tablet Take 30 mg by mouth once daily 01/31/2018 Active One Touch Delica Lancets OneTouch Delica Lancets 30 gauge Active blood glucose test strip TEST TWICE DAILY Active Blood Glucose Monitoring Suppl (ONE TOUCH ULTRA 2) W/DEVICE KIT use to test twice daily ICD-10 E11.9 Active sevelamer carbonate (RENVELA) 800 MG Take 1 (one) tablet by mouth 3 times daily with meals Take 2 with meals Active TRULICITY 1.5 MG/0.5ML injection Inject 1.5 (one and one-half) mg subcutaneously once daily 05/03/2020 Active atorvastatin (Lipitor) 40 MG tablet atorvastatin 40 mg tablet Active Glucagon, rDNA, (Glucagon Emergency) 1 MG KIT 06/24/2022 Active NIFEdipine CR 24hr (Adalat CC) 90 MG tablet 07/04/2023 Active ondansetron (Zofran) 4 MG tablet 07/03/2023 Active doxycycline hyclate (Vibramycin) 100 MG capsule 09/13/2023 Active ondansetron, disintegrating, (Zofran ODT) 4 MG tablet DISSOLVE 1 TABLET ON THE TONGUE EVERY 8 HOURS NEEDED FOR NAUSEA AND VOMITING Active terbinafine (LamISIL) 1 % cream APPLY TO THE AFFECTED AND SURROUNDING AREAS OF SKIN BY TOPICAL ROUTE ONCE DAILY 08/01/2023 Active Active Problems Problem Noted Date Diagnosed Date Open wound of right great toe 03/19/2023 Encounter regarding vascular access for dialysis for end-stage renal disease 07/18/2022 Hypoglycemia 06/22/2022 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 ESRD (end stage renal disease) 04/10/2018 Inadequate flow of hemodialysis AV fistula Social History Tobacco Use Types Packs/Day Years Used Date Smoking Tobacco: Former Cigarettes 3 15 1 06/17/1974 - 04/17/1990 Smokeless Tobacco: Never Tobacco Cessation:Counseling Given: Not Answered Alcohol Use Standard Drinks/Week Comments No 0 [...] Sign Reading Time Taken Comments Blood Pressure 149/62 05/21/2024 10:15 AM STORE CLERK CHECKER Pulse 75 05/21/2024 10:15 AM STORE CLERK CHECKER Temperature 36.9 C (98.5 F) 05/21/2024 9:23 AM STORE CLERK CHECKER Respiratory Rate 12 05/21/2024 10:15 AM STORE CLERK CHECKER Oxygen Saturation 93% 05/21/2024 10:15 AM STORE CLERK CHECKER Inhaled Oxygen Concentration - - Weight 88.5 kg (195 lb) 05/21/2024 9:23 AM STORE CLERK CHECKER Height 165.1 cm (5' 5 ) 05/21/2024 9:23 AM STORE CLERK CHECKER Body Mass Index 32.45 05/21/2024 9:23 AM STORE CLERK CHECKER Plan of Treatment Upcoming Encounters Date Type Department Care Team (Late st Contact Info) Description 10/01/2024 11:00 AM CDT Appointment [facility] [address] [place] [address], [facility] [address] [id number] Procedures Procedure Name Priority Date/Time Associated Diagnosis Comments CARDIAC RHYTHM STRIP ORDER 05/26/2024 10:26 PM STORE CLERK CHECKER COMPREHENSIVE METABOLIC PANEL STAT 04/12/2022 2:09 PM CDT HEPATITIS C ANTIBODY STAT 04/12/2022 2:09 PM CDT from Last 3 Months or Most Recently Relevant to Health Maintenance Results * CARDIAC RHYTHM STRIP ORDER (05/26/2024 10:26 PM STORE CLERK CHECKER) Narrative 05/26/2024 10:26 PM STORE CLERK CHECKER Ordered by an unspecified provider. Scanned Document CARDIAC SERVICES ORD ERABLES * (ABNORMAL) COMPREHENSIVE METABOLIC PANEL (04/12/2022 2:09 PM CDT) Glucose 100 70 - 105 mg/dL 04/12/2022 2:42 PM CDT [facility] Sodium 137 136 - 145 mmol/L 04/12/2022 2:42 PM CDT [facility] Potassium 4.0 3.5 - 5.1 mmol/L 04/12/2022 2:42 PM CDT [facility] Chloride 102 98 - 107 mmol/L 04/12/2022 2:42 PM CDT [facility] CO2 28 23 - 31 mmol/L 04/12/2022 2:42 PM CDT [facility] Calcium 8.8 8.4 - 10.4 mg/dL 04/12/2022 2:42 PM CDT [facility] Anion Gap 7(L) 8 - 18 mmol/L 04/12/2022 2:42 PM CDT [facility] BUN 13 9.8 - 20.1 mg/dL 04/12/2022 2:42 PM CDT [facility] Creatinine 5.73(H) 0.57 - 1.11 mg/dL 04/12/2022 2:42 PM CDT [facility] Alkaline Phosphatase 66 40 - 150 U/L 04/12/2022 2:42 PM CDT [facility] ALT <6 0 - 61 U/L 04/12/2022 2:42 PM CDT [facility] AST 13 5 - 34 U/L 04/12/2022 2:42 PM CDT [facility] Protein Total 6.9 6.4 - 8.3 gm/dL 04/12/2022 2:42 PM CDT [facility] Albumin 3.0(L) 3.2 - 4.6 gm/dL 04/12/2022 2:42 PM CDT [facility] Bilirubin Total 0.7 0.2 - 1.2 mg/dL 04/12/2022 2:42 PM CDT [facility] eGFR by CKD-EPI 8(L) >=90 mL/min/1.7 3 m2 04/12/2022 2:42 PM CDT [facility] Blood BLOOD SPECIMEN / Unknown Venipuncture / Unknown 04/12/2022 2:09 PM CDT 04/12/2022 2:19 PM CDT Carolina Egan PA-C LAB - CHEMISTRY ORDERABLES Performing Organization Address City/State/[facility] Co de Phone Number [facility] [address] [place] [address] * HEPATITIS C ANTIBODY (04/12/2022 2:09 PM CDT) Pathologist [facility] HCV Antibody Screen Non Reactive Non Reactive 04/12/2022 2:58 PM CDT [facility] Blood BLOOD SPECIMEN / Unknown Venipuncture / Unknown 04/12/2022 2:09 PM CDT 04/12/2022 2:19 PM CDT Narrative [facility] - 04/12/2022 2:58 PM CDT Non Reactive - Antibodies to Hepatitis C virus (HCV) were not detected, result does not exclude early acute HCV infection. Dyan Aguilar DO LAB - CHEMISTRY ORD ERABLES [facility] [address] [place] [address] from Last 3 Months or Most Recently Relevant to Health Maintenance Care Teams Photographic Laboratory Supervisor Relationship Specialty Start Date End Date Gilles Morrison, [employer]IST [address] [place] [address] PCP - General Nurse Practitioner 07/15/18
--- OUTSIDE RECORDS SUMMARY | 2024-08-22 08:11 | XMS_ITS | Patient Health Summary ---
Author Organization [facility] Address [address] [place] [address] Care Team Providers Care Esl Professor Name Role Phone PrinceGilles Parminder NAM-EDUCATIONAL COORDINATOR Primary Care Provider Note from [facility],non-owned Affiliates and Associated Physician Practices is amultiple site organization consisting of ambulatory clinics and hospital sitesin [place], [place], [place] and [place]. This disclosure is being madepursuant to the Care Everywhere program and may not contain all information available regarding this patient. Last updated 18.[facility] Allergies * Captopril-Hydrochlorothiazide(Urticaria) -Medium Criticality * Hydrochlorothiazide(Rash) -Medium Criticality Medications * Be aware that medications may not be up to date on this document. Alwaysverify current medications with the patient. * carvedilol (COREG) 12.5 MG tablet Take 1 (one) tablet by mouth 2 times daily * NIFEdipine CR 24hr (ADALAT CC) 60 MG tablet(Started 01/31/2018) Take 30 mg by mouth once daily * One Touch Delica Lancets OneTouch Delica Lancets 30 gauge * blood glucose test strip TEST TWICE DAILY * Blood Glucose Monitoring Suppl (ONE TOUCH ULTRA 2) W/DEVICE KIT use to test twice daily ICD-10 E11.9 * sevelamer carbonate (RENVELA) 800 MG Take 1 (one) tablet by mouth 3 times daily with meals Take 2 with meals * TRULICITY 1.5 MG/0.5ML injection(Started 05/03/2020) Inject 1.5 (one and one-half) mg subcutaneously once daily * atorvastatin (Lipitor) 40 MG tablet atorvastatin 40 mg tablet * Glucagon, rDNA, (Glucagon Emergency) 1 MG KIT(Started 06/24/2022) * NIFEdipine CR 24hr (Adalat CC) 90 MG tablet(Started 07/04/2023) * ondansetron (Zofran) 4 MG tablet(Started 07/03/2023) * doxycycline hyclate (Vibramycin) 100 MG capsule(Started 09/13/2023) * ondansetron, disintegrating, (Zofran ODT) 4 MG tablet DISSOLVE 1 TABLET ON THE TONGUE EVERY 8 HOURS NEEDED FOR NAUSEA AND VOMITING * terbinafine (LamISIL) 1 % cream(Started 08/01/2023) APPLY TO THE AFFECTED AND SURROUNDING AREAS OF SKIN BY TOPICAL ROUTE ONCE DAILY Active Problems Problem Noted Date Diagnosed Date [...] Comments Blood Pressure 149/62 05/21/2024 10:15 AM TRAVEL RN OR Pulse 75 05/21/2024 10:15 AM TRAVEL RN OR Temperature 36.9 C (98.5 F) 05/21/2024 9:23 AM TRAVEL RN OR Respiratory Rate 12 05/21/2024 10:15 AM TRAVEL RN OR Oxygen Saturation 93% 05/21/2024 10:15 AM TRAVEL RN OR Inhaled Oxygen Concentration - - Weight 88.5 kg (195 lb) 05/21/2024 9:23 AM TRAVEL RN OR Height 165.1 cm (5' 5 ) 05/21/2024 9:23 AM TRAVEL RN OR Body Mass Index 32.45 05/21/2024 9:23 AM TRAVEL RN OR Procedures * CARDIAC RHYTHM STRIP ORDER(Performed 05/26/2024) * IR ANGIO AV SHUNT IMAGING(Performed 05/21/2024) Performed for ESRD (end stage renal disease) ([facility]) * XR FOOT LEFT 3VW OR MORE(Performed 01/28/2024) Performed for Fall, initial encounter * CARDIAC RHYTHM STRIP ORDER(Performed 01/21/2024) * IR ANGIO AV SHUNT IMAGING(Performed 01/16/2024) Performed for ESRD (end stage renal disease) ([facility]) * CARDIAC RHYTHM STRIP ORDER(Performed 07/19/2023) * IR ANGIO AV SHUNT IMAGING(Performed 07/16/2023) Performed for Encounter regarding vascular access for dialysis for end-stage renal disease ([facility]) * VAS ARTERIAL ANKLE ARM INDEX(Performed 03/19/2023) Performed for Open wound of right great toe, subsequent encounter * CARDIAC RHYTHM STRIP ORDER(Performed 01/18/2023) * CARDIAC RHYTHM STRIP ORDER(Performed 07/26/2022) * IR ANGIO AV SHUNT IMAGING(Performed 07/19/2022) Performed for Encounter regarding vascular access for dialysis for end-stage renal disease ([facility]) * CULTURE STOOL+ E COLI SHIGA-LIKE TOXIN(Performed 04/12/2022) * LIPASE BLOOD(Performed 04/12/2022) * PROCALCITONIN LEVEL(Performed 04/12/2022) * B-TYPE NATRIURETIC PEPTIDE(Performed 04/12/2022) * TROPONIN I(Performed 04/12/2022) * LACTIC ACID BLOOD REFLEX TO REPEAT(Performed 04/12/2022) * COMPREHENSIVE METABOLIC PANEL(Performed 04/12/2022) * CBC W AUTO DIFFERENTIAL(Performed 04/12/2022) * HEPATITIS C ANTIBODY(Performed 04/12/2022) * SARS-COV-2 (COVID-19)+INFLU A+B PCR RAPID(Performed 04/12/2022) * XR CHEST 1VW(Performed 04/12/2022) Performed for Cough, unspecified type * CT ABDOMEN PELVIS WO CONTRAST(Performed 04/12/2022) Performed for Abdominal pain, generalized * EKG 12-LEAD(Performed 04/12/2022) Performed for Chest pain, unspecified type * CARDIAC RHYTHM STRIP ORDER(Performed 02/09/2022) * IR ANGIO AV SHUNT IMAGING(Performed 01/30/2022) Performed for ESRD (end stage renal disease) (HCC) * CARDIAC RHYTHM STRIP ORDER(Performed 09/04/2021) * CARDIAC RHYTHM STRIP ORDER(Performed 04/11/2021) * IR ANGIO AV SHUNT IMAGING(Performed 04/04/2021) Performed for ESRD (end stage renal disease) (HCC) * CARDIAC RHYTHM STRIP ORDER(Performed 11/11/2020) * CARDIAC RHYTHM STRIP ORDER(Performed 05/31/2020) * IR ANGIO AV SHUNT IMAGING(Performed 05/24/2020) Performed for ESRD (end stage renal disease) (HCC) * CARDIAC RHYTHM STRIP ORDER(Performed 01/11/2020) * CARDIAC RHYTHM STRIP ORDER(Performed 07/17/2019) * IR ANGIO AV SHUNT IMAGING(Performed 07/16/2019) Performed for Complication of dialysis access insertion, subsequent encounter, ESRD (end stage renal disease) (HCC) * CREATION ARTERIOVENOUS (AV) FISTULA DIRECT(Performed 03/31/2019) * GLUCOSE - POINT OF CARE(Performed 03/31/2019) * BASIC METABOLIC PANEL (CALCIUM TOTAL)(Performed 03/31/2019) Performed for Chronic hepatitis C without hepatic coma (HCC) * CARDIAC RHYTHM STRIP ORDER(Performed 03/25/2019) * IR ANGIO AV SHUNT IMAGING(Performed 03/12/2019) Performed for Inadequate flow of dialysis arteriovenous fistula, subsequent encounter * CARDIAC RHYTHM STRIP ORDER(Performed 11/07/2018) * IR ANGIO AV SHUNT IMAGING(Performed 10/21/2018) Performed for ESRD (end stage renal disease) (HCC), Inadequate flow of dialysis arteriovenous fistula, subsequent encounter * IR CENTRAL LINE REMOVAL(Performed 10/21/2018) Performed for ESRD (end stage renal disease) (HCC), Inadequate flow of dialysis arteriovenous fistula, subsequent encounter * CARDIAC RHYTHM STRIP ORDER(Performed 09/05/2018) * IR ANGIO AV SHUNT IMAGING(Performed 09/02/2018) Performed for Complication of arteriovenous dialysis fistula, subsequent encounter * ARTERIOVENOUS FISTULA TRANSPOSITION / SUPERFICIALIZATION(Performed 07/15/2018) * GLUCOSE - POINT OF CARE(Performed 07/15/2018) * BASIC METABOLIC PANEL (CALCIUM TOTAL)(Performed 07/15/2018) Performed for Preop examination * CARDIAC RHYTHM STRIP ORDER(Performed 06/24/2018) * IMAGING/RADIOLOGY/XRAY RESULTS ORDER(Performed 06/23/2018) * IR AV FISTULA GRAFT ARTERIAL PLASTY(Performed 06/12/2018) Performed for ESRD (end stage renal disease) ([facility]) * VAS DIALYSIS EXIST ACCESS SCAN(Performed 05/26/2018) Performed for ESRD (end stage renal disease) ([facility]) * CREATE FISTULA A-V(Performed 04/10/2018) * GLUCOSE - POINT OF CARE(Performed 04/10/2018) * BASIC METABOLIC PANEL (CALCIUM TOTAL)(Performed 04/10/2018) Performed for Preoperative examination * VAS BILAT MAPPING FOR HEMODIALYSIS(Performed 03/10/2018) Performed for ESRD (end stage renal disease) ([facility]) * CYTOLOGY SMEAR PAP(Performed 04/22/1998) * CYTOLOGY SMEAR PAP(Performed 08/07/1997) * CYTOLOGY SMEAR PAP(Performed 06/19/1996) Results * CARDIAC RHYTHM STRIP ORDER (05/26/2024 10:26 PM TRAVEL RN OR) Only the most recent of16 resultswithin the time period is included. Narrative 05/26/2024 10:26 PM TRAVEL RN OR Ordered by an unspecified provider. Scanned Document CARDIAC SERVICES ORD ERABLES * IR Angio Av Shunt Imaging (05/21/2024 10:12 AM TRAVEL RN OR) Only the most recent of11 resultswithin the time period is included. Anatomical Region Laterality Modality Lower Extremity, Upper Extremity, Chest X-Ray Angiography Narrative 05/21/2024 10:13 AM TRAVEL RN OR Jose Magaña MD 05/21/2024 10:19 AM [facility] Loc Field 1955 DATE OF PROCEDURE: 05/21/2024 ORDERING PHYSICIAN: Elder PROCEDURE: Left AV fistulogram with central venous angioplasty using conscious sedation INDICATIONS FOR PROCEDURE: Intermittent prolonged bleeding following decannulation from dialysis DESCRIPTION OF PROCEDURE:The patient s left upper arm was prepped and draped in the normal sterile manner. Using local anesthesia the access was punctured with the needle directed towards the central circulation. A guidewire was advanced under fluoroscopy and a 5 Malian catheter placed. Digital subtraction images were obtained from the arterial anastomosis to the level of the SVC. Reflux examination showed a nicely patent arterial anastomosis. The venous outflow was somewhat tortuous but patent. The cephalic arch which was stented was nicely patent with no evidence of recurrent stenosis. 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 The decision was made to perform angioplasty. The 5 Malian sheath was upsized to a 7 Malian sheath. Moderate IV conscious sedation was administered by Dr. Magaña using 0.5 mg of Versed and 100 mcg of Fentanyl. The patient's airway and condition was evaluated immediately prior to sedation and/or analgesia. The patient was independently monitored by a registered nurse for 30 minutes using automated blood pressure, EKG, end tidal CO2, and pulse oximetry. There were no complications. A series of catheter wire manipulations were done to cross the stenosis and a 10 mm x 4 cm balloon was dilated 12 atmospheres with a good radiographic and clinical result. A total of 20 cc of contrast and 6.6 mGy radiation were used for the procedure. The balloon wire and sheath were removed and direct digital pressure was used for hemostasis. The patient tolerated procedure well left the center in stable and satisfactory condition. FINDINGS: Hemodynamically significant subclavian vein stenosis IMPRESSION: Successful central venous angioplasty using IV conscious sedation as described DICTATED BY: Jose Magaña M.D. DATE DICTATED: 05/21/2024 Interventional Post-Operative/Procedure Notes Surgeon: Gómez Pre Procedure Diagnosis: ESRD Post Procedure Diagnosis: ESRD Anesthesia: Local 1% lidocaine and IV sedation Disposition: OPS Status: Stable Drain or Pack: None Additional Information/Complications: None Estimated Blood Loss: Negligible Specimen: None Bridger Friedman MD IR ORDERABLES * XR Foot Left 3Vw or More (01/28/2024 12:21 PM CDT) Anatomical Region Laterality Modality Ankle / Foot Radiographic Shanon ging 01/28/2024 3:59 PM CDT Narrative 01/28/2024 4:01 PM CDT PROCEDURE(s): XR FOOT LEFT 3VW OR MORE; DATE AND TIME OF EXAM(s): 01/28/2024 12:21 PM; LOCATION: [facility] INDICATION(s): Left foot pain. COMPARISON(s): None available. Findings/Impression: Bones are demineralized. No displaced fracture or dislocation is identified. 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 Additional degenerative changes affecting the midfoot and IP joints. Talar beak. Plantar calcaneal spur. There are atherosclerotic vascular calcifications. The soft tissues are otherwise unremarkable. > Interpreting Provider: Eder Patel DO on 01/28/2024 4:01 PM Procedure Note Eder Patel DO - 01/28/2024 PROCEDURE(s): XR FOOT LEFT 3VW OR MORE; DATE AND TIME OF EXAM(s):01/28/2024 12:21 PM; LOCATION: [facility] INDICATION(s): Left foot pain. COMPARISON(s): None available. Findings/Impression: Bones are demineralized. No displaced fracture or dislocation is identified. 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 Additional degenerative changes affecting the midfoot and IP joints.Talar beak. Plantar calcaneal spur. There are atherosclerotic vascular calcifications. The soft tissues are otherwise unremarkable. > Interpreting Provider: Eder Patel DO on 01/28/2024 4:01 PM Jluis Mercado DO DIAGNOSTIC IMAGING O RDERABLES * VAS ARTERIAL ANKLE ARM INDEX (CAMELIA - LIMITED PRESSURE STUDY) (03/19/2023 10:56 AM CDT) Anatomical Region Laterality Modality Ankle / Foot, Upper Extremity Ul trasound 03/19/2023 10:4 2 AM CDT Narrative Procedure Note Jose Magaña MD - 03/20/2023 [facility] [address], [address] [place] [address] Lower Extremity Arterial Doppler Report Pat.Name: LOC FIELD.ID: [id number] St.Date: 03/19/2023 Exam Time: 10:42:00 AM Study Type:CAMELIA/PVR Age: 10 1955,68Y Sex: FEMALE Sonogrphr: Destiney Claire RVT Pat. Stat.:Outpatient CPT - 4: 23948 Reason for Study: Non-healing wound-Right Procedures: Ankle Arm Index Race: Visit ID: [id number] ++++++++++++++++++++++++++++++++++++ SUMMARY: ++++++++++++++++++++++++++++++++++++ There is no evidence for significant arterial insufficiency of either the right or left lower extremity based on waveform analysis. ++++++++++++++++++++++++++++++++++++ FINDINGS: ++++++++++++++++++++++++++++++++++++ Procedure: The arterial vasculature of the lower extremities was evaluated by analysis of Doppler pressures and waveforms obtained in the legs at rest. Study Quality: This study is of adequate technical quality. CAMELIA: Rt ankle brachial index is NC Noncompressible. Left ankle brachial index is 1.1 (normal greater than 0.90). Arterial doppler waveforms of the right EMERGENCY DEPARTMENT COORDINATOR are triphasic. Arterial doppler waveforms of the right DPA are triphasic. Arterial doppler waveforms of the left EMERGENCY DEPARTMENT COORDINATOR are triphasic. Arterial doppler waveforms of the left DPA are triphasic. Comments: Note: Right Brachial Pressure was 219. ++++++++++++++++++++++++++++++++++++ MEASUREMENTS: ++++++++++++++++++++++++++++++++++++ PRESSURES Left CAMELIA (DP) CAMELIA (DP) 1.1 Left CAMELIA (PT) CAMELIA (PT) 1.1 Left Ankle DP AnkleDP P 234 mmHg Left Ankle PT AnklePT P 239 mmHg Right CAMELIA (DP) CAMELIA (DP) 0 Right CAMELIA (PT) CAMELIA (PT) 0 Right Ankle DP AnkleDP P 0 mmHg Right Ankle PT AnklePT P 0 mmHg Right Brachial Brach P 219 mmHg Signed 03/20/2023 08:45 AM Jose Magaña MD Jluis Mercado DO VASCULAR LAB ORDERAB LES * CULTURE STOOL+ E COLI SHIGA-LIKE TOXIN (04/12/2022 8:08 PM CDT) Culture No growth Salmonella, Shigella, Campylobacter, Escherichia coli O157:h7 or Yersinia RICHARD 04/15/2022 2:14 PM TRAVEL RN OR [facility]CRO[facility] Culture Negative Escherichia coli Shiga-like toxin (NM) RICHARD 04/15/2022 2:14 PM TRAVEL RN OR [facility] Stool STOOL SPECIMEN / Unknown Collection / Unknown 04/12/2022 8:08 PM CDT 04/12/2022 8:43 PM CDT Dyan Aguilar DO LAB - MICROBIOLOGY ORDERABLES Performing Organization Address City/[facility]/ZIP Co de Phone Number [facility]CRO[facility] [address] [place] [address], [facility] [phone] * LACTIC ACID BLOOD REFLEX TO REPEAT (04/12/2022 2:09 PM CDT) Pathologist [facility] Lactic Acid 0.97 <=2 mmol/L 04/12/2022 2:39 PM CDT [facility] Blood BLOOD SPECIMEN / Unknown Venipuncture / Unknown 04/12/2022 2:09 PM CDT 04/12/2022 2:18 PM CDT Carolina Egan PA-C LAB - CHEMISTRY ORDERABLES [facility] [address] [place] [address] * (ABNORMAL) PROCALCITONIN LEVEL (04/12/2022 2:09 PM CDT) Procalcitonin 1.07(H) <0.10 ng/mL 04/12/2022 3:00 PM CDT [facility] Blood BLOOD SPECIMEN / Unknown Venipuncture / Unknown 04/12/2022 2:09 PM CDT 04/12/2022 2:19 PM CDT Narrative [facility] - 04/12/2022 3:00 PM CDT The change in procalcitonin (PCT) concentration over time provides support in decision making on antibiotic discontinuation for suspected or confirmed septic patients. Follow-up samples should be tested once every 1-2 days based upon physician discretion taking into account the patient s evolution and progress. Consider discontinuation of antibiotic therapy if the PCT current is <= 0.5 ng/mL or if the delta PCT is > 80%. Duration of antibiotics should not be determined solely on PCT; established guidelines for the indication should be followed. PCT peak: Highest observed PCT concentration PCT current: Most recent PCT concentration Calculate delta PCT using the following equation: Delta PCT = PCT Peak PCT current X 100% PCT Peak The Change in Procalcitonin Calculator is available at [email or web address] If clinical picture has not improved and PCT remains high, reevaluate and consider treatment failure or other causes. Carolina Egan PA-C LAB - CHEMISTRY ORDERABLES Performing Organization Address [facility] de Phone Number [facility] [address] [place] [address] * TROPONIN I (04/12/2022 2:09 PM CDT) [facility] Troponin I 0.025 <0.038 ng/mL 04/12/2022 3:00 PM CDT [facility] Blood BLOOD SPECIMEN / Unknown Venipuncture / Unknown 04/12/2022 2:09 PM CDT 04/12/2022 2:19 PM CDT Carolina Egan PA-C LAB - CHEMISTRY ORDERABLES Performing Organization Address [facility] Co de Phone Number [facility] [address] [place], [place] [id number] * (ABNORMAL) CBC W AUTO DIFFERENTIAL (04/12/2022 2:09 PM CDT) [facility] WBC 5.4 4.4 - 10.7 x10E9/L 04/12/2022 2:28 PM CDT [facility] WBC Corrected 04/12/2022 2:28 PM CDT [facility] RBC 3.76(L) 3.80 - 5.20 x10E12/L 04/12/2022 2:28 PM CDT [facility] Hemoglobin 10.9(L) 12.0 - 15.6 gm/dL 04/12/2022 2:28 PM CDT [facility] Hematocrit 35.5(L) 35.9 - 45.5 % 04/12/2022 2:28 PM CDT [facility] MCV 94.4 80.7 - 98.3 fl 04/12/2022 2:28 PM CDT [facility] MCH 29.0 26.7 - 34.0 pg 04/12/2022 2:28 PM CDT [facility] MCHC 30.7(L) 30.8 - 35.9 gm/dL 04/12/2022 2:28 PM CDT [facility] Platelet Count 183 153 - 416 x10E9/L 04/12/2022 2:28 PM CDT [facility] RDW-CV 14.8 12.1 - 14.9 % 04/12/2022 2:28 PM CDT [facility] MPV 10.4 9.4 - 12.9 fl 04/12/2022 2:28 PM CDT [facility] Neutrophils % 66.5 44.0 - 73.0 % 04/12/2022 2:28 PM CDT [facility] Lymphocytes % 19.4(L) 20.0 - 43.0 % 04/12/2022 2:28 PM CDT [facility] Monocytes % 10.4 5.0 - 13.0 % 04/12/2022 2:28 PM CDT [facility] Eosinophils % 2.6 0.0 - 6.0 % 04/12/2022 2:28 PM CDT [facility] Basophils % 0.7 0.0 - 2.0 % 04/12/2022 2:28 PM CDT [facility] Immature Granulocytes 0.4 0 - 1 % 04/12/2022 2:28 PM CDT [facility] Neutrophil Absolute 3.57 2.01 - 7.14 x10E9/L 04/12/2022 2:28 PM CDT [facility] Lymphocytes Absolute 1.04(L) 1.07 - 3.94 x10E9/L 04/12/2022 2:28 PM CDT [facility] Monocytes Absolute 0.56 0.26 - 1.07 x10E9/L 04/12/2022 2:28 PM CDT [facility] Eosinophils Absolute 0.14 0 - 0.47 x10E9/L 04/12/2022 2:28 PM CDT [facility] Basophils Absolute 0.04 0 - 0.08 x10E9/L 04/12/2022 2:28 PM CDT [facility] Immature Granulocytes Absolute 0.02 0.00 - 0.06 x10E9/L 04/12/2022 2:28 PM CDT [facility] nRBC Auto 0 /100 WBC 04/12/2022 2:28 PM CDT [facility] Blood BLOOD SPECIMEN / Unknown Venipuncture / Unknown 04/12/2022 2:09 PM CDT 04/12/2022 2:19 PM CDT Carolina Egan PA-C LAB - HEMATOLOGY ORDERABLES Performing Organization Address City/[facility] Co de Phone Number [facility] [address] [place] [address] * (ABNORMAL) B-TYPE NATRIURETIC PEPTIDE (04/12/2022 2:09 PM CDT) Pathologist [facility] BNP 407(H) <=100 pg/mL 04/12/2022 2:42 PM CDT [facility] Blood BLOOD SPECIMEN / Unknown Venipuncture / Unknown 04/12/2022 2:09 PM CDT 04/12/2022 2:19 PM CDT Carolina Egan PA-C LAB - CHEMISTRY ORDERABLES Performing Organization Address City/[facility]/ZIP Co de Phone Number [facility] [address] [place] [address] * (ABNORMAL) COMPREHENSIVE METABOLIC PANEL (04/12/2022 2:09 PM CDT) Pathologist [facility] Glucose 100 70 - 105 mg/dL 04/12/2022 2:42 PM CDT [facility] Sodium 137 136 - 145 mmol/L 04/12/2022 2:42 PM CDT [facility] Potassium 4.0 3.5 - 5.1 mmol/L 04/12/2022 2:42 PM CDT [facility] Chloride 102 98 - 107 mmol/L 04/12/2022 2:42 PM CDT [facility] CO2 28 23 - 31 mmol/L 04/12/2022 2:42 PM CDT [facility] Calcium 8.8 8.4 - 10.4 mg/dL 04/12/2022 2:42 PM CDT [facility] Anion Gap 7(L) 8 - 18 mmol/L 04/12/2022 2:42 PM CDT [facility] BUN 13 9.8 - 20.1 mg/dL 04/12/2022 2:42 PM CDT [facility] Creatinine 5.73(H) 0.57 - 1.11 mg/dL 04/12/2022 2:42 PM CDT [facility] Alkaline Phosphatase 66 40 - 150 U/L 04/12/2022 2:42 PM CDT [facility] ALT <6 0 - 61 U/L 04/12/2022 2:42 PM CDT [facility] AST 13 5 - 34 U/L 04/12/2022 2:42 PM CDT [facility] Protein Total 6.9 6.4 - 8.3 gm/dL 04/12/2022 2:42 PM CDT [facility] Albumin 3.0(L) 3.2 - 4.6 gm/dL 04/12/2022 2:42 PM CDT [facility] Bilirubin Total 0.7 0.2 - 1.2 mg/dL 04/12/2022 2:42 PM CDT [facility] eGFR by CKD-EPI 8(L) >=90 mL/min/1.7 3 m2 04/12/2022 2:42 PM CDT [facility] Blood BLOOD SPECIMEN / Unknown Venipuncture / Unknown 04/12/2022 2:09 PM CDT 04/12/2022 2:19 PM CDT Carolina Egan PA-C LAB - CHEMISTRY ORDERABLES Performing Organization Address City/State/[facility] de Phone Number [facility] [address] [place], [place] [phone] * LIPASE BLOOD (04/12/2022 2:09 PM CDT) [facility] Lipase 8 8 - 78 U/L 04/12/2022 2:42 PM CDT [facility] Blood BLOOD SPECIMEN / Unknown Venipuncture / Unknown 04/12/2022 2:09 PM CDT 04/12/2022 2:19 PM CDT Carolina Egan PA-C LAB - CHEMISTRY ORDERABLES Performing Organization Address [facility] de Phone Number [facility] [address] [place] [phone] * HEPATITIS C ANTIBODY (04/12/2022 2:09 PM CDT) [facility] HCV Antibody Screen Non Reactive Non Reactive 04/12/2022 2:58 PM CDT [facility] Blood BLOOD SPECIMEN / Unknown Venipuncture / Unknown 04/12/2022 2:09 PM CDT 04/12/2022 2:19 PM CDT Narrative [facility] - 04/12/2022 2:58 PM CDT Non Reactive - Antibodies to Hepatitis C virus (HCV) were not detected, result does not exclude early acute HCV infection. Dyan Aguilar DO LAB - CHEMISTRY ORD ERABLES Performing Organization Address [facility] de Phone Number [facility] [id number] [place] [phone] * SARS-COV-2 (COVID-19)+INFLU A+B PCR RAPID (04/12/2022 1:26 PM CDT) [facility] COVID-19 PCR Not detected Not detected 04/12/20 3:05 PM CDT [facility] Influenza A PCR Not detected Not detected 04/12/2022 3:05 PM CDT [facility] Influenza B PCR Not detected Not detected 04/12/2022 3:05 PM CDT [facility] Microbiology SPECIMEN FROM NASOPHARYNGEAL STRUCTURE / Unknown Collection / Unknown 04/12/2022 1:26 PM CDT 04/12/2022 2:18 PM CDT Narrative [facility] - 04/12/2022 3:05 PM CDT This nucleic acid amplification assay has been authorized by the Food and Drug administration (FDA) under an Emergency Use Authorization (EUA). This test is only authorized for the duration of time the declaration that circumstances exist justifying the authorization of emergency use of in vitro diagnostic tests for detection of SARS-CoV-2 virus and/or diagnosis of COVID-19 infection under section 564(b)(1) of the Act, 21 U.S.C 360bbb-3 (b)(1), unless the authorization is terminated or revoked sooner. Fact Sheets for this EUA assay are available upon request. Carolina Egan PA-C LAB - MICROBIOLO GY ORDERABLES Performing Organization Address City/State/[facility] Co de Phone Number [facility] [address] [place] [address] * XR CHEST PA OR AP (1VW ONLY, THIS IS NOT PORTABLE) (04/12/2022 1:25 PM CDT) Anatomical Region Laterality Modality Chest Radiographic Shanon ging 04/12/2022 1:35 PM CDT Impressions 04/12/2022 1:36 PM CDT IMPRESSION: 1. Mild cardiomegaly. No acute cardiopulmonary process is identified. > Interpreting Provider: Eder Patel DO on 04/12/2022 1:36 PM Narrative 04/12/2022 1:36 PM CDT PROCEDURE: XR CHEST 1VW, DATE/TIME OF EXAM: 04/12/2022 1:32 PM, LOCATION [facility] INDICATION: Cough with history of TB. COMPARISON: None. FINDINGS: Mild cardiomegaly. No pulmonary vascular congestion. No consolidation, pleural effusion or pneumothorax. The bony thorax is grossly unremarkable. Procedure Note Eder Patel DO - 04/12/2022 PROCEDURE: XR CHEST 1VW, DATE/TIME OF EXAM: 04/12/2022 1:32 PM, LOCATION [facility] INDICATION: Cough with history of TB. COMPARISON: None. FINDINGS: Mild cardiomegaly. No pulmonary vascular congestion. No consolidation, pleural effusion or pneumothorax. The bony thorax is grosslyunremarkable. IMPRESSION: 1. Mild cardiomegaly. No acute cardiopulmonary process is identified. > Interpreting Provider: Eder Patel DO on 04/12/2022 1:36 PM Dyan Espino Lauren [facility] ORDERABLES * CT ABDOMEN PELVIS WO CONTRAST - acute abdomen (04/12/2022 1:10 PM CDT) Anatomical Region Laterality Modality Abdomen, Pelvis Computed Tomogra phy 04/12/2022 1:27 PM CDT Impressions 04/12/2022 1:35 PM CDT IMPRESSION: 1. No acute abnormality is identified within the abdomen or pelvis. 2. 1 cm nonobstructing stone lower pole left kidney. 3. Atherosclerosis. > Interpreting Provider: Eder Patel DO on 04/12/2022 1:35 PM Narrative 04/12/2022 1:35 PM CDT PROCEDURE: CT ABDOMEN PELVIS WO CONTRAST, DATE/TIME OF EXAM: 04/12/2022 1:26 PM, LOCATION [facility] INDICATION: Abdominal pain for 3 days with diarrhea. COMPARISON: None. TECHNIQUE: CT of the abdomen and pelvis was performed without oral or intravenous contrast. CT dose reduction technique was used, including Automated Exposure Control. FINDINGS: Minor scarring or subsegmental atelectasis within the left lower lobe. Liver is unremarkable. Gallbladder, biliary tree, pancreas, spleen and adrenal glands are normal. 1 cm nonobstructing stone lower pole left kidney. No hydronephrosis or obstructive ureteral calculus. The urinary bladder is unremarkable. No mechanical bowel obstruction is identified. The cecum, terminal ileum and appendix are normal. There is redundancy of the sigmoid colon which makes a sharp turn but without 360 degree mesenteric rotation or upstream colonic dilation. No pneumatosis or mesenteric venous gas. No ascites or free air. Aorta is atherosclerotic but nonaneurysmal. Moderate atherosclerosis of the mesenteric vessels as well. There is no retroperitoneal lymphadenopathy. Uterus and adnexal structures are grossly unremarkable for limited noncontrast. Degenerative changes of the thoracolumbar spine. No compression fracture. No aggressive bone or endplate destruction. Procedure Note Amanda EderDO - 04/12/2022 PROCEDURE: CT ABDOMEN PELVIS WO CONTRAST, DATE/TIME OF EXAM: 04/12/2022 1:26 PM, LOCATION [facility] INDICATION: Abdominal pain for 3 days with diarrhea. COMPARISON: None. TECHNIQUE: CT of the abdomen and pelvis was performed without oral or intravenous contrast. CT dose reduction technique was used, including Automated ExposureControl. FINDINGS: Minor scarring or subsegmental atelectasis within the left lower lobe. Liver is unremarkable. Gallbladder, biliary tree, pancreas, spleen and adrenal glands are normal. 1 cm nonobstructing stone lower pole left kidney. No hydronephrosis or obstructive ureteral calculus. The urinary bladder is unremarkable. No mechanical bowel obstruction is identified. The cecum, terminal ileum and appendix are normal. There is redundancy of the sigmoid colon which makes a sharp turn but without 360 degree mesenteric rotation orupstream colonic dilation. No pneumatosis or mesenteric venous gas. No ascites or free air. Aorta is atherosclerotic but nonaneurysmal. Moderate atherosclerosis of the mesenteric vessels as well. There is no retroperitoneal lymphadenopathy. Uterus and adnexal structures aregrossly unremarkable for limited noncontrast. Degenerative changes of the thoracolumbar spine. No compressionfracture. No aggressive bone or endplate destruction. IMPRESSION: 1. No acute abnormality is identified within the abdomen or pelvis. 2. 1 cm nonobstructing stone lower pole left kidney. 3. Atherosclerosis. > Interpreting Provider: Eder Patel DO on 04/12/2022 1:35 PM Carolina Egan PA-C CT ORDERABLES * EKG 12-LEAD (04/12/2022 11:49 AM CDT) Ventricular Rate 77 BPM [facility] Atrial Rate 77 BPM [facility] P-R Interval 134 ms [facility] QRS Duration ms 106 ms [facility] Q-T Interval ms 406 ms [facility] QTC Calculation (Bezet) 459 ms [facility] Calculated P Harlan 8 degrees [facility] Calculated R Harlan 87 degrees [facility] Calculated T Harlan -7 degrees [facility] Interpretation EKG Normal sinus rhythm No previous ECGs available Confirmed by TONJA BOLTON, EMELIA ONEILL ([id number]) on 04/12/2022 2:50:16 PM [facility] 04/12/2022 11:4 9 AM CDT 04/12/2022 2:50 PM CDT Dyan Aguilar DO ECG ORDERABLES Performing Organization Address [facility] Co de Phone Number [facility] * (ABNORMAL) GLUCOSE - POINT OF CARE (03/31/2019 7:00 AM CDT) Only the most recent of3 resultswithin the time period is included. Glucose WB/POC 137(H) 70 - 106 mg/dL 03/31/2019 7:01 AM CDT [facility] Specimen Type Venous 03/31/2019 7:01 AM CDT [facility] Blood BLOOD SPECIMEN / Unknown 03/31/2019 7:00 AM CDT 03/31/2019 7:01 AM CDT Bridger Friedman MD LAB - POINT OF CAR E ORDERABLES Performing Organization Address [facility] de Phone Number [facility] [address] [place] [phone] * (ABNORMAL) BASIC METABOLIC PANEL (CALCIUM TOTAL) (03/31/2019 6:55 AM CDT) Only the most recent of3 resultswithin the time period is included. Glucose 136(H) 70 - 105 mg/dL 03/31/2019 7:22 AM CDT [facility] Sodium 138 136 - 145 mmol/L 03/31/2019 7:22 AM CDT [facility] Potassium 4.1 3.5 - 5.1 mmol/L 03/31/2019 7:22 AM CDT [facility] Chloride 98 98 - 107 mmol/L 03/31/2019 7:22 AM CDT [facility] CO2 30 23 - 31 mmol/L 03/31/2019 7:22 AM CDT [facility] Calcium 9.6 8.4 - 10.2 mg/dL 03/31/2019 7:22 AM CDT [facility] Anion Gap 10 8 - 16 mmol/L 03/31/2019 7:22 AM CDT [facility] BUN 25(H) 9.8 - 20.1 mg/dL 03/31/2019 7:22 AM CDT [facility] Creatinine 4.13(H) 0.57 - 1.11 mg/dL 03/31/2019 7:22 AM CDT [facility] eGFR by MDRD 11(L) >60 mL/min/1.7 3m2 03/31/2019 7:22 AM CDT [facility] eGFR by MDRD 13(L) >60 mL/min/1.7 3m2 03/31/2019 7:22 AM CDT [facility] Blood BLOOD SPECIMEN / Unknown Venipuncture / Unknown 03/31/2019 6:55 AM CDT 03/31/2019 7:06 AM CDT Vanda Rodriges DO LAB - CHEMISTRY NELY SEE Performing Organization Address City/State/[facility] Co de Phone Number [facility] [address] [place] [address] * IR CENTRAL LINE REMOVAL (10/21/2018 12:44 PM CDT) Anatomical Region Laterality Modality X-Ray Angiograph y Narrative 10/26/2018 7:36 AM CDT Jitendra Bryson MD 10/26/2018 7:36 AM [facility] Loc [place] 1955 DATE OF PROCEDURE: 10/21/2018 ORDERING PHYSICIAN: Jitendra Bryson MD PROCEDURE: Removal of right internal jugular vein tunneled dialysis catheter with local anesthetic INDICATIONS FOR PROCEDURE: Functioning upper extremity hemodialysis access, no longer requires tunneled dialysis catheter DESCRIPTION OF PROCEDURE: [place] protocol was performed prior to the beginning of the procedure to confirm patient identity and planned procedure. Maximum sterile barriers including cap, mask, hand hygiene, sterile gloves, sterile gown, large sterile drape, and 2% chlorhexidine for cutaneous antisepsis were used.The patient s right neck and chest were prepped and draped in the normal sterile manner. Using local anesthesia, the restraining cuff of the catheter was freed from the underlying soft tissue using sharp and blunt dissection. Once the cuff was freed, the catheter was then removed in its entirety. Pressure was held at the right neck for hemostasis and a dressing was applied. FINDINGS: The tunneled dialysis catheter was removed in its entirety and hemostasis achieved quickly IMPRESSION: Successful removal of right internal jugular vein tunneled dialysis catheter with local anesthetic DICTATED BY: Jitendra Bryson M.D. DATE DICTATED: cc: Jitendra Bryson MD IR ORDERABLES * IMAGING/RADIOLOGY/XRAY RESULTS ORDER (06/23/2018 8:47 PM TRAVEL RN OR) Anatomical Region Laterality Modality X-Ray Angiograph y Narrative 06/23/2018 8:47 PM TRAVEL RN OR Ordered by an unspecified provider. Scanned Document IMAGING * IR AV FISTULA GRAFT ARTERIAL PLASTY (06/12/2018 8:09 AM TRAVEL RN OR) Anatomical Region Laterality Modality X-Ray Angiograph y Narrative 06/15/2018 5:38 PM TRAVEL RN OR Jitendra Bryson MD 06/15/2018 5:38 PM [facility] [place] Loc [place]ier 1955 DATE OF PROCEDURE: 06/12/2018 ORDERING PHYSICIAN: Bridger Friedman MD PROCEDURE: Ultrasound guided vascular access for left upper arm hemodialysis fistulogram, angioplasty within the peripheral hemodialysis segment left upper arm fistula INDICATIONS FOR PROCEDURE: Poor maturation of left upper arm fistula, patient remains catheter dependent for hemodialysis, end-stage renal disease DESCRIPTION OF PROCEDURE: The patient s left upper arm was prepped and draped in the normal sterile manner.The patient s left upper arm fistula was evaluated with ultrasound and found to be patent. Using local anesthesia and ultrasound guidance the access was punctured with the needle directed towards the arterial anastomosis. This vessel was punctured under sterile conditions and ultrasound guidance with the needle seen entering through the anterior wall of the vessel. A permanent ultrasound image was obtained A guidewire was advanced under fluoroscopy and a 5 Malian catheter placed. Digital subtraction images were obtained from the arterial anastomosis to the level of the SVC. A 5 Malian angled catheter was advanced across high-grade stenosis of the proximal fistula had in just above the arterial anastomosis and angioplasty performed with a 6 mm angioplasty balloon. Postangioplasty views were obtained. A total of 65 ml of Isovue 300 contrast was used for the examination. Fluoroscopy time was 3.8 minutes. The patient cumulative radiation dose in milligray and milligray2, as well as the number of still images obtained are documented for the exam in PACS. Moderate IV pain medication was administered by Dr. Bryson using 50 mcg of Fentanyl. The patient was independently monitored by a registered nurse for 3rd minutes using automated blood pressure, EKG and pulse oximetry. There were no complications. FINDINGS: Left upper arm hemodialysis fistulogram with ultrasound guided vascular access. The cephalic vein anastomosis to the brachial artery shows a moderate to high-grade stenosis. There is a 2nd high-grade stenosis approximately 4 cm above the arterial anastomosis. The outflow cephalic vein is overall small, with multiple small collaterals present. A moderate to high-grade stenosis is seen at the level of a diseased venous valve just above the antecubital space. Centrally there is no significant stenosis of the left subclavian vein or superior vena cava. Some of the collaterals fill a patent basilic vein without stenosis. Angioplasty within the peripheral hemodialysis segment: Balloon dilatation of the stenoses in the peripheral segment showed improvement in luminal diameter with mild elastic recoil. There was improved thrill within the fistula after angioplasty. IMPRESSION: Patent left upper arm hemodialysis fistula with stenoses in the peripheral hemodialysis segment which were successfully dilated as described above. DICTATED BY: Jitendra Bryson M.D. DATE DICTATED: 06/15/2018 cc: Bridger Friedman MD IR ORDERABLES * VAS DIALYSIS EXIST ACCESS SCAN (05/26/2018 2:49 PM TRAVEL RN OR) Anatomical Region Laterality Modality Ultrasound 05/26/2018 3:41 PM TRAVEL RN OR Narrative Procedure Note Bridger Friedman MD - 05/26/2018 [facility] [place] [address], [address] [place] [address] Hemodialysis Graft Report Pat.Name: LOC FIELD Suzanne.ID: [id number] St.Date: 05/26/2018 Exam Time: 3:41:00 PM Study Type:Hemodialysis Graft Age: 10 1955,63Y Sex: FEMALE Sonogrphr: Ab Del Cid RVT Pat. Stat.:Outpatient ICD - 9: N18.6 End stage renal disease CPT - 4: 46064 Procedures:AV Fistula Evaluation Race: Visit ID: [id number] ++++++++++++++++++++++++++++++++++++ SUMMARY: ++++++++++++++++++++++++++++++++++++ Patent but small, left upper AV fistula. ++++++++++++++++++++++++++++++++++++ FINDINGS: ++++++++++++++++++++++++++++++++++++ Procedure: B-mode imaging, color flow Doppler and spectral analysis were used to evaluate the AV fistula in the upper arm of the left upper extremity. Study Quality: This study is of adequate technical quality. Lt Arm: There is a stenotic AV fistula involving the Lt cephalic vein and the brachial artery. The average diameter measured 5.8 mm proximally, 2.8 mm mid, and 5.6 mm distally. Signed 05/26/2018 03:00 PM Bridger Friedman MD Bridger Friedman MD VASCULAR LAB ORDER CHARITY * VAS MAPPING FOR HEMODIALYSIS (03/10/2018 2:06 PM CDT) Anatomical Region Laterality Modality Ultrasound 03/10/2018 2:00 PM CDT Narrative Procedure Note Bridger Friedman MD - 03/10/2018 [facility] [place] [facility] [address] [address], [address] [place] [address] Vessel Mapping for Hemodialysis Report Pat.Name: LOC FIELD.ID: [id number] St.Date: 03/10/2018 Exam Time: 2:00:00 PM Study Type:Vessel Mapping for Hemodialysis Age: 11 1955,62Y Sex: FEMALE Sonogrphr: Ab Del Cid RVT Pat. Stat.:Outpatient ICD - 9: N18.6 End stage renal disease CPT - 4: G0365 Procedures:Vessel Mapping for Hemodialysis Race: Visit ID: [id number] ++++++++++++++++++++++++++++++++++++ SUMMARY: ++++++++++++++++++++++++++++++++++++ The left cephalic vein is adequate for access in the upper arm. ++++++++++++++++++++++++++++++++++++ FINDINGS: ++++++++++++++++++++++++++++++++++++ Procedure: Duplex vein mapping was carried out in the left upper extremity. Study Quality: This study is of adequate technical quality. Mapping Lt: The left cephalic vein is patent and compressible. The left basilic vein is patent and compressible. The left cephlaic vein measured .38 cm at the antecubital fossa and .33 cm in the upper arm. Signed 03/10/2018 04:20 PM Bridger Friedman MD Bridger Friedman MD VASCULAR LAB ORDER CHARITY * CYTOLOGY SMEAR PAP (04/22/1998 1:43 PM TRAVEL RN OR) Only the most recent of3 resultswithin the time period is included. Result CASE NUMBER [id number] Comment: ORDERING PHYSICIAN UDAY HE SPECIMEN TYPE PAP Smear Date 04/22/1998 Procedure Cervical/Endocervical, 1 smear received Specimen Adequacy Satisfactory for Evaluation but Limited Obscuring blood. Categorization Within Normal Limits Comment Inflammation Present. Snomed. 04/25/1998 1530 <1> Engine Setter Doung Mccain (ASCP) PAP Footnote The PAP smear is only a screening procedure to aid in the detection of cervical cancer and its precursors. It is not a diagnostic procedure and should not be used as the sole means to detect cervical cancer. Both false negative and false positive results have been experienced. MISCELLANEOUS SAMPLES / Unknown 04/22/1998 1:43 PM TRAVEL RN OR 04/22/1998 1:43 PM TRAVEL RN OR Historical Provider MD LAB - PATHOLOGY/C YTOLOGY ORDERABLES Care Teams Esl Professor Relationship Specialty Start Date End Date Gilles Morrison, CARAMEL MAKER-EDUCATIONAL COORDINATOR [address] [place] [address] PCP - General Nurse Practitioner 07/15/18
--- OUTSIDE RECORDS SUMMARY | 2024-08-22 08:11 | XMS_ITS | Clinical Summary ---
Author Organization [facility] Address [address] [place] [address] Care Team Providers Care Tanning Consultant Name Role Phone PrinceGilles Parminder MUSEUM LIBRARIAN-MASTER DATA ANALYST Primary Care Provider Source Comments [facility],non-[facility] health Affiliates and Associated Physician Practices is amultiple site organization consisting of ambulatory clinics and hospital sitesin [place], [place], [place] and [place]. This disclosure is being madepursuant to the Care Everywhere program and may not contain all information available regarding this patient. Last updated 18.[facility] Allergies Active Allergy Reactions Criticality Noted Date [...] 04/10/2018 Inadequate flow of hemodialysis AV fistula Family History Medical History Relation Name Comments Cancer - Lung Brother 1 Diabetes - Type 2 Brother 1 Diabetes - Type 2 Brother 2 COPD - Chronic Obstructive Pulmonary Disease Father Diabetes - Type 2 Father Other Father cerebral hemorr mikel Cancer - Breast Mother Relation Name Status Comments Brother 1 Brother 2 Alive Father Mother Social History Tobacco Use Types Packs/Day Years [...] Comments Blood Pressure 149/62 05/21/2024 10:15 AM ABE TEACHER Pulse 75 05/21/2024 10:15 AM ABE TEACHER Temperature 36.9 C (98.5 F) 05/21/2024 9:23 AM ABE TEACHER Respiratory Rate 12 05/21/2024 10:15 AM ABE TEACHER Oxygen Saturation 93% 05/21/2024 10:15 AM ABE TEACHER Inhaled Oxygen Concentration - - Weight 88.5 kg (195 lb) 05/21/2024 9:23 AM ABE TEACHER Height 165.1 cm (5' 5 ) 05/21/2024 9:23 AM ABE TEACHER Body Mass Index 32.45 05/21/2024 9:23 AM ABE TEACHER Plan of Treatment Upcoming Encounters Date Type Department Care Team (Late st Contact Info) Description 10/01/2024 11:00 AM CDT Appointment [facility] [address] [place] [address], [place] [phone] Health Maintenance Due Date Last Done Comments BONE DENSITY TESTING 1955 COLOGUARD (AGES 45-75) - COLON CA SCREENING 1955 COLON MONITORING 1955 COLONOSCOPY - COLON CA SCREENING 1955 CT COLONOGRAPHY - COLON CA SCREENING 1955 Colorectal Cancer Screening 1955 FIT - COLON CA SCREENING 1955 FLEX SIG - COLON CA SCREENING 1955 MAMMOGRAM 1955 DTAP/TDAP/TD VACCINES (1 - Tdap) 1975 PNEUMOCOCCAL VACCINE 50+ (1 of 2 - PCV) 1975 HEPATITIS B VACCINE (1 of 3 - Risk Dialysis 4-dose series) 1976 ZOSTER VACCINE (1 of 2) 2006 Respiratory Syncytial Virus (RSV) Vaccine Pt: or over 60 yrs (1 - Risk 60-74 years 1-dose series) 2016 COVID-19 VACCINE ( - season) 2024 INFLUENZA VACCINE (#1) 2024 3, 04/11/2022, 03/12/2022, Additional history exists DEPRESSION SCREENING 06/10/2024 MEDICARE AWV CALENDAR YEAR 2024 SCREENING FOR DIABETES 04/12/2025 2, 03/31/2019, 03/31/2019, Additional history exists HEPATITIS C SCREENING Completed 04/12/2022, 019 HIB VACCINE Aged Out No longer eligi ble based on patient's age to complete this topic HPV VACCINE Aged Out No longer eligi ble based on patient's age to complete this topic MENINGOCOCCAL (Group B) VACCINE SHARED DECISION-MAKING Aged Out No longer eligible based on patient's age to complete this topic MENINGOCOCCAL GROUPS A/C/Y/W VACCINE Aged Out No longer eligible based on patient's age to complete this topic Procedures Procedure Name Priority Date/Time Associated Diagnosis Comments CARDIAC RHYTHM STRIP ORDER 05/26/2024 10:26 PM ABE TEACHER COMPREHENSIVE METABOLIC PANEL STAT 04/12/2022 2:09 PM CDT HEPATITIS C ANTIBODY STAT 04/12/2022 2:09 PM CDT from Last 3 Months or Most Recently Relevant to Health Maintenance Results * CARDIAC RHYTHM STRIP ORDER (05/26/2024 10:26 PM ABE TEACHER) Narrative 05/26/2024 10:26 PM ABE TEACHER Ordered by an unspecified provider. Scanned Document [...] - 1.11 mg/dL 04/12/2022 2:42 PM CDT [facility] Alkaline Phosphatase 66 40 - 150 U/L 04/12/2022 2:42 PM CDT [facility] ALT <6 0 - 61 U/L 04/12/2022 2:42 PM CDT [facility] AST 13 5 - 34 U/L 04/12/2022 2:42 PM CDT [facility] Protein Total 6.9 6.4 - 8.3 gm/dL 04/12/2022 2:42 PM CDT [facility] Albumin 3.0(L) 3.2 - 4.6 gm/dL 04/12/2022 2:42 PM CDT [facility] Bilirubin Total 0.7 0.2 - 1.2 mg/dL 04/12/2022 2:42 PM CDT [facility] eGFR by CKD-EPI 8(L) >=90 mL/min/1.7 3 m2 04/12/2022 2:42 PM CDT [facility] Blood BLOOD SPECIMEN / Unknown Venipuncture / Unknown 04/12/2022 2:09 PM CDT 04/12/2022 2:19 PM CDT Carolina Egan PA-C LAB - CHEMISTRY ORDERABLES [facility] [address] [place] [address] * HEPATITIS C ANTIBODY (04/12/2022 2:09 PM CDT) HCV Antibody Screen Non Reactive Non Reactive 04/12/2022 2:58 PM CDT [facility] Blood BLOOD SPECIMEN / Unknown Venipuncture / Unknown 04/12/2022 2:09 PM CDT 04/12/2022 2:19 PM CDT Narrative [facility] - 04/12/2022 2:58 PM CDT Non Reactive - Antibodies to Hepatitis C virus (HCV) were not detected, result does not exclude early acute HCV infection. Suhaib Srinivas Ased DO LAB - CHEMISTRY ORD ERABLES [facility] [address] [place] [address] from Last 3 Months or Most Recently Relevant to Health Maintenance Care Teams Tanning Consultant Relationship Specialty Start Date End Date Gilles Morrison, MUSEUM LIBRARIAN-MASTER DATA ANALYST [address] [place], [place] [phone] PCP - General Nurse Practitioner 07/15/18
--- OUTSIDE RECORDS SUMMARY | 2024-08-22 08:11 | XMS_ITS | CONTINUITY OF CARE DOCUMENT ---
Author Name pacheco bergman Address Unknown Organization [facility] Address [address] [place] [address] Phone [phone] Care Team Providers Care Debt Collector Name Role Phone Herminio BOLTON, Andrey Unavailable JIGNA HARRIS MD Unavailable JIGNA HARRIS MD Unavailable PROBLEMS Condition Status Date Provider Notes Other symptoms involving cardiovascular system completed - Douglas Pandya MD Edema - localized active Ruslan Ramsay DM - type 2 active Ruslan Vazquez MD Shortness of breath active Ruslan Vazquez MD Abnormal nuclear stress test - NML CORONARIES BY CATH 10/24 active Harlan Jung Pulmonary HTN active Douglas Pandya MD Hypertension active Harlan Jung Sleep apnea, obstructive, severe active Harlan Jung Chest pain active Ruslan Vazquez MD Palpitations active Carolina Ventimiglia TONG CARRIER Kidney Disease active Andrey Durham MD Obesity active Harlan Jung Hx of pulmonary embolism active Harlan gaines Anemia active Harlan Jung Chronic kidney disease active Harlan brice Tobacco use, quit active Harlan Jung Venous insufficiency active Ruslan maldonado MD LV systolic dysfunction active Ruslan connolly MD Edema - generalized active Ruslan Vazquez MD CHF - systolic completed - Douglas Pandya MD Family History of Hypertension: completed - Douglas Pandya MD ENCOUNTERS Date Type Provider Location Encounter Diag nosis - In-person encounter Office Visit Andrey Durham MD [facility] Office - In-person encounter Office Visit Andrey Durham MD [facility] Palpitations - In-person encounter Office Visit Andrey Durham MD [facility] - In-person encounter Office Visit Andrey Durham MD [facility] Kidney Disease - In-person encounter Office Visit Andrey Durham MD [facility] - In-person encounter Office Visit Ruslan Vazquez MD [facility] - In-person encounter Office Visit Ruslan Vazquez MD [facility] - In-person encounter Office Visit Ruslan Vazquez MD [facility] - In-person encounter Office Visit Rsulan Vazquez MD [facility] - In-person encounter Office Visit Ruslan Vazquez MD [facility] - In-person encounter Office Visit Ruslan Vazquez MD [facility] - In-person encounter Office Visit Ruslan Vazquez MD [facility] Chest pain - In-person encounter Office Visit Nii Doll MD [facility] - In-person encounter Office Visit Ruslan Vazquez MD [facility] - In-person encounter Office Visit Douglas Pandya MD [facility] Family History of Hypertension:Other symptoms involving cardiovascular systemCHF - systolicAbnormal nuclear stress test - NML CORONARIES BY CATH 10/24Pulmonary HTNHypertensionSleep apnea, obstructive, severeTobacco use, quitChronic kidney diseaseAnemiaHx of pulmonary embolismObesity - In-person encounter Office Visit Ruslan Vazquez MD [facility] Office - In-person encounter Office Visit Nii Doll MD [facility] - In-person encounter Office Visit Ruslan Vazquez MD [facility] Edema - generalizedEdema - localizedDM - type 2LV systolic dysfunctionShortness of breathVenous insufficiency VITAL SIGNS Date Observation Value Provider Body Mass Index (Ratio) 29.91 kg/m2 Ignacio Durham MD blood pressure, diastolic 69 mm[Hg] mihaidulce Perez blood pressure, systolic 145 mm[Hg] [facility], [facility] 97 % [facility] 73 /min [facility] respiratory rate E&M 12 /min [facility] weight E&M 191 [lb_av] [facility] height E&M 67 [in_i] [facility] blood pressure, cuff size regular [facility] Body Mass Index (Ratio) 31.32 kg/m2 Trevor da Ventimiglia TONG CARRIER blood pressure, diastolic 67 mm[Hg] [facility] blood pressure, systolic 145 mm[Hg] [facility] oxygen saturation, oximetry 91 % [facility] pulse rate 83 /min [facility] respiratory rate E&M 12 /min [facility] weight E&M 200 [lb_av] [facility] height E&M 67 [in_i] [facility] blood pressure, cuff size regular Karla carroll Chris Body Mass Index (Ratio) 31.32 kg/m2 Ignacio Durham MD blood pressure, diastolic 72 mm[Hg] Vi radha [facility], systolic 146 mm[Hg] Any in [facility] oxygen saturation, oximetry 99 % [facility] pulse rate 80 /min [facility] respiratory rate E&M 12 /min [facility] weight E&M 200 [lb_av] [facility] height E&M 67 [in_i] [facility] Body Mass Index (Ratio) 29.60 kg/m2 Ignacio Durham MD blood pressure, cuff size regular Ja [facility] blood pressure, diastolic 88 mm[Hg] Ja et blood pressure, systolic 178 mm[Hg] Jar ret pulse rate 71 /min Alonzo oxygen saturation, oximetry 100 % Alonzo respiratory rate E&M 12 /min Alonzo weight E&M 189 [lb_av] Alonzo height E&M 67 [in_i] Alonzo y Body Mass Index (Ratio) 40.40 kg/m2 Ignacio Durham MD blood pressure, cuff size large Ke rri Darreluenekarma blood pressure, diastolic 70 mm[Hg] Ke rri Gruenenfeldjesus blood pressure, systolic 140 mm[Hg] Yenifer Cantu oxygen saturation, oximetry 98 % Vicki Cantu respiratory rate E&M 18 /min Vicki woods pulse rate 84 /min Vicki cortez weight E&M 258 [lb_av] Vicki Rjoonoryharesh er height E&M 67 [in_i] Vicki Rojokattsary aspirus [facility] Body Mass Index (Ratio) 41.03 kg/m2 Jose D Vazquez MD respiratory rate E&M 16 /min Tons Huerta blood pressure, diastolic 86 mm[Hg] To nsha Huerta blood pressure, systolic 157 mm[Hg] Ton [facility] oxygen saturation, oximetry 93 % Tons Huerta pulse rate 108 /min Tons Huerta weight E&M 262 [lb_av] Tonsha Huerta height E&M 67 [in_i] Tonsha Huerta Body Mass Index (Ratio) 39.15 kg/m2 Jose D Vazquez MD blood pressure, diastolic 83 mm[Hg] Justice Cat blood pressure, systolic 140 mm[Hg] Caterina Cat oxygen saturation, oximetry 94 % Gladys Cat respiratory rate E&M 20 /min Loki Cat pulse rate 82 /min Gladys Espinoza alex weight E&M 250 [lb_av] GladysGisell Maldonadoe ns height E&M 67 [in_i] Gladys Alexis ns Body Mass Index (Ratio) 39.46 kg/m2 Aristides Plurad blood pressure, diastolic 60 mm[Hg] Da dylan Enma blood pressure, systolic 108 mm[Hg] Dac ia Enma oxygen saturation, oximetry 97 % Verónica Enma respiratory rate E&M 18 /min Verónica V oss pulse rate 83 /min Veróinca Enma weight E&M 252 [lb_av] Verónica Enma height E&M 67 [in_i] Verónica Enma Body Mass Index (Ratio) 39.93 kg/m2 Jose D Vazquez MD pulse rate 89 /min Kwaku [facility] oxygen saturation, oximetry 98 % Kwaku [facility]alma blood pressure, diastolic 100 mm[Hg] Tramaine gironfrancisco javier Arizaalice blood pressure, systolic 210 mm[Hg] Suzanne Arizaalice respiratory rate E&M 18 /min Kawku [facility] weight E&M 255 [lb_av] Kwaku [facility] height E&M 67 [in_i] Formerly [facility] Body Mass Index (Ratio) 40.56 kg/m2 Krystle kirsten Abreu blood pressure, diastolic 70 mm[Hg] Justice Cat blood pressure, systolic 136 mm[Hg] Caterina Cat oxygen saturation, oximetry 95 % Gladys Cat respiratory rate E&M 18 /min Loki Cat pulse rate 92 /min Gladys au weight E&M 259 [lb_av] Gladys Espinoza alex height E&M 67 [in_i] Gladys Espinoza alex pulse rate #2 81 [facility] blood pressure, lujan tolic, second observation 80 mm[Hg] [facility] blood pressure, syst olic, second observation 137 mm[Hg] [facility] oxygen saturation, oximetry 98 % [facility] pulse rate 81 /min [facility] blood pressure, diastolic 80 mm[Hg] Shivani ctoria blood pressure, systolic 137 mm[Hg] Atilio willard d pulse rate #2 77 [facility] blood pressure, lujan tolic, second observation 75 mm[Hg] [facility] blood [facility], syst olic, second observation 130 mm[Hg] [facility], oximetry 98 % Tiarra Tebid pulse rate 77 /min Tiarra Tebid blood pressure, diastolic 75 mm[Hg] Vi ctoria Tebid blood pressure, systolic 130 mm[Hg] Atilio sudheer Tebid pulse rate #2 78 [facility], lujan tolic, second observation 74 mm[Hg] [facility] blood [facility], syst olic, second observation 141 mm[Hg] [facility] oxygen saturation, oximetry 98 % [facility] pulse rate 78 /min [facility] blood pressure, diastolic 74 mm[Hg] Vi [facility] Tebid blood pressure, systolic 141 mm[Hg] Atilio sudheer Tebid weight E&M 245 [lb_av] Rose Marie Garay height E&M 67 [in_i] Rose Marie Garay pulse rate #2 78 [facility] blood pressure, lujan tolic, second observation 100 mm[Hg] [facility] blood [facility], syst olic, second observation 192 mm[Hg] [facility] oxygen saturation, oximetry 98 % [facility] pulse rate 78 /min [facility] blood pressure, diastolic 100 mm[Hg] Vi ctoria Tebid blood pressure, systolic 192 mm[Hg] Atilio sudheer Tebid pulse rate #2 85 [facility] blood pressure, lujan tolic, second observation 102 mm[Hg] [facility] blood pressure, syst olic, second observation 172 mm[Hg] [facility] oxygen saturation, oximetry 98 % [facility] pulse rate 85 /min [facility] blood pressure, diastolic 102 mm[Hg] Vi ctoria Tebid blood pressure, systolic 172 mm[Hg] Atilio monroyia Tebid pulse rate #2 85 [facility] blood pressure, lujan tolic, second observation 90 mm[Hg] [facility] blood pressure, syst olic, second observation 160 mm[Hg] [facility] oxygen saturation, oximetry 98 % [facility] pulse rate 85 /min [facility] blood pressure, diastolic 90 mm[Hg] Vi ctoria Tebid blood pressure, systolic 160 mm[Hg] [facility] #2 78 [facility] blood pressure, lujan tolic, second observation 100 mm[Hg] [facility] blood pressure, syst olic, second observation 142 mm[Hg] [facility] oxygen saturation, oximetry 98 % [facility] pulse rate 78 /min [facility] blood pressure, diastolic 100 mm[Hg] [facility] Tebid blood pressure, systolic 142 mm[Hg] Atilio sudheer bid pulse rate #2 87 [facility] blood pressure, lujan tolic, second observation 103 mm[Hg] [facility] blood pressure, syst olic, second observation 163 mm[Hg] [facility] oxygen saturation, oximetry 98 % [facility] pulse rate 87 /min [facility] blood pressure, diastolic 103 mm[Hg] Vi ctoria Tebid blood pressure, systolic 163 mm[Hg] Atilio sudheer Tebid pulse rate #2 72 [facility] blood pressure, lujan tolic, second observation 75 mm[Hg] [facility] blood pressure, syst olic, second observation 128 mm[Hg] [facility] oxygen [facility], oximetry 98 % [facility] pulse rate 72 /min [facility] blood pressure, diastolic 75 mm[Hg] Vi brice Tebisobia blood pressure, systolic 128 mm[Hg] Atilio willard Gely Body Mass Index (Ratio) 38.49 kg/m2 Jose D Vazquez MD blood pressure, diastolic 88 mm[Hg] Justice Cat blood pressure, systolic 182 mm[Hg] Caterina Cat oxygen saturation, oximetry 96 % Gladys Cat respiratory rate E&M 18 /min Loki Cat pulse rate 77 /min Gladys au weight E&M 245.8 [lb_av] Gladys miller height E&M 67 [in_i] Gladys au Body Mass Index (Ratio) 37.08 kg/m2 Jose D Vazquez MD blood pressure, diastolic 92 mm[Hg] Justice Cat blood pressure, systolic 207 mm[Hg] Caterina Cat oxygen saturation, oximetry 94 % Gladys Cat respiratory rate E&M 18 /min Loki Cat pulse rate 94 /min Gladys au weight E&M 236.8 [lb_av] Gladys miller height E&M 67 [in_i] Gladys Espinoza alex Body Mass Index (Ratio) 34.61 kg/m2 Ratna Doll MD blood pressure, cuff size regular Ke rri Alondra blood pressure, diastolic 60 mm[Hg] Ke rri Alondra blood pressure, systolic 121 mm[Hg] Yenifer Cantu oxygen saturation, oximetry 95 % Vicki Cantu respiratory rate E&M 18 /min Vicki woods pulse rate 80 /min Vicki bowserer weight E&M 221 [lb_av] Vicki Rice lder height E&M 67 [in_i] Vicki Rice lder Body Mass Index (Ratio) 33.54 kg/m2 Jose D Vazquez MD blood pressure, diastolic 84 mm[Hg] Justice Cat blood pressure, systolic 187 mm[Hg] Caterina Cat oxygen saturation, oximetry 93 % Gladys Cat respiratory rate E&M 20 /min Loki Cat pulse rate 76 /min Gladys Espinoza ronniealex weight E&M 214.2 [lb_av] Gladys pearlon height E&M 67 [in_i] Gladys Espinoza ronniealex Body Mass Index (Ratio) 36.65 kg/m2 Aristides Jung blood pressure, cuff size regular Ke rri Alondra blood pressure, diastolic 96 mm[Hg] Ke rri Alondra blood pressure, systolic 185 mm[Hg] Yenifer Cantu oxygen saturation, oximetry 93 % Vicki Cantu respiratory rate E&M 16 /min Vicki woods pulse rate 96 /min Vicki bowserer weight E&M 234 [lb_av] Vicki Rice lder height E&M 67 [in_i] Vicki bowserer Body Mass Index (Ratio) 33.67 kg/m2 Jose D Vazquez MD weight E&M 215 [lb_av] Yamilet Best height E&M 67 [in_i] Yamilet Best respiratory rate E&M 18 /min Yamilet Best pulse rate 104 /min Yamilet Best oxygen saturation, oximetry 93 % Yamilet Best blood pressure, diastolic 80 mm[Hg] Dennis Best blood pressure, systolic 142 mm[Hg] Mike Best blood pressure, cuff size regular Dennis Best Body Mass Index (Ratio) 43.04 kg/m2 Ratna Doll MD blood pressure, diastolic 88 mm[Hg] Justice Julianne Cat blood pressure, systolic 179 mm[Hg] Caterina Roldan Cat oxygen saturation, oximetry 90 % Gladysben Cat respiratory rate E&M 20 /min YiYi Cat pulse rate 80 /min Gladys Espinoza roe weight E&M 274.8 [lb_av] Gladys pearlalex height E&M 67 [in_i] Gladys Espinoza roe Body Mass Index (Ratio) 37.49 kg/m2 Jose D Vazquez MD blood pressure, resting Yes Yi Jameson Cat blood pressure, diastolic 97 mm[Hg] Justice Julianne Cat blood pressure, systolic 181 mm[Hg] Caterina Claytoncaden Cat oxygen saturation, oximetry 94 % Gladys Cat respiratory rate E&M 20 /min Loki Cat pulse rate 102 /min Gladys Espinoza roe weight E&M 239.4 [lb_av] Gladys miller height E&M 67 [in_i] Gladys Espinoza ronniealex ALLERGIES Allergy Name Onset Date Reaction Criticality Status CAPAZIDE Low Criticality active RESULTS Date Observation Value Provider Reference Range Interpretation Location 0 calcium, serum 8.7 mg/dL [facility] 8.7-10.3 0 carbon dioxide, venous blood 25 mmol/L [facility] 18-29 0 chloride, serum 97 mmol/L [facility] 96-106 0 potassium, serum 4.6 mmol/L [facility] 3.5-5.2 0 sodium, serum 137 mmol/L [facility] 666-025 0092/01/1 0 urea nitrogen/creatinin e ratio, serum 29 [facility] 12-28 High 0 eGFR if not 23 mL/min/{1. 73_m2} [facility] >59 Low 0 creatinine, serum 2.23 mg/dL [facility] 0.57-1.00 High 0 urea nitrogen, blood 64 mg/dL [facility] 8-27 High 0 blood glucose, random 311 mg/dL [facility] 65-99 High 1 very low density lipoproteins 23.8 mg/dL [facility] 5.0 - 40.0 1 LDL/HDL (low-density lipoprotein/high-d ensity lipoprotein) ratio 3.1 RATIO [facility] - 1 lipoprotein, beta, serum, point, quantitative, calculated 103.2 (?) [facility] 0.0 - 100.0 High 1 HDL cholesterol, serum 33.0 mg/dL [facility] 45.0 - 65.0 Low 1 cholesterol, serum 160.0 mg/dL [facility] 0.0 - 200.0 1 triglyceride, serum, fasting 119.0 mg/dL [facility] 0.0 - 150.0 1 urea nitrogen/creatinin e ratio, serum 11.4 [facility] - 1 Estimated Glomerular Filtration Rate (calc) 40.8 (?) [facility] 59.0 - Low 1 chloride, serum 102.6 mmol/L [facility] 98.0 - 107.0 1 potassium, serum 3.9 mmol/L [facility] 3.5 - 5.1 1 sodium, serum 145.0 mmol/L [facility] 136.0 - 145.0 1 creatinine, serum 1.4 mg/dL [facility] 0.5 - 1.0 High 1 carbon dioxide, venous blood 28.0 mmol/L [facility] 23.0 - 31.0 1 calcium, serum 8.5 mg/dL [facility] 8.6 - 10.2 Low 1 urea nitrogen, blood 16.0 mg/dL [facility] 8.0 - 23.0 1 blood glucose, random 144.0 mg/dL [facility] 74.0 - 99.0 High 1 red blood cell distribution width, size density 54.4 fL [facility] - 1 immature granulocytes, percentage of total cells, blood 1.0 % [facility] - 1 nucleated red blood cells as percent of blood leukocytes 0.0 % [facility] - 1 red blood cell (erythrocyte) count, per high power field 0.0 10*3/UL [facility] - 1 eosinophils as percent of blood leukocytes 3.5 % [facility] - 1 neutrophils as percent of blood leukocytes 70.0 % [facility] - 1 Absolute Neutrophils 5.8 CELLS/UL [facility] 1.5 - 7.8 1 basophils as percent of blood leukocytes 0.9 % [facility] - 1 Absolute Basophils 0.1 CELLS/UL [facility] 0.0 - 0.2 1 monocytes as percent of blood leukocytes 8.8 % [facility] - 1 Absolute Monocytes 0.7 CELLS/UL [facility] 0.2 - 1.0 1 lymphocytes as percent of blood leukocytes 15.8 % [facility] - 1 Absolute Lymphocytes 1.3 CELLS/UL [facility] 0.9 - 3.9 1 mean platelet volume 9.7 (?) [facility] - 1 platelet count 543.0 THOUSAND/U L [facility] 100.0 - 400.0 High 1 mean corpuscular hemoglobin concentration, RBC 29.2 G/DL [facility] 31.0 - 38.0 Low 1 mean corpuscular hemoglobin, RBC 24.9 pg [facility] 25.0 - 35.0 Low 1 mean corpuscular volume, RBC 85.1 fL [facility] 75.0 - 100.0 1 hematocrit, blood 34.9 % [facility] 35.0 - 55.0 Low 1 hemoglobin, blood 10.2 g/dL [facility] 11.5 - 16.5 Low 1 erythrocyte count, whole blood 4.1 MILLION/UL [facility] 3.5 - 5.5 1 prothrombin time (patient) 11.5 s [facility] 9.0 - 11.5 1 international normalized ratio (INR) 1.0 [facility] 0.9 - 1.1 HISTORY OF MEDICATION USE Medication Status Instructions Dates Provider Indications Com ments atorvastatin 40 mg tablet active TAKE 1 TABLET BY MOUTH EVERY EVENING 07/28 Ericka Perez aspirin 81 mg tablet,delayed release (DR/EC) active TAKE 1 TABLET BY MOUTH EVERY DAY Carolina CHISHOLM atorvastatin 40 mg tablet completed Take 1 tablet by mouth once a day 07/05 - 07/28 Ericka Perez carvedilol 12.5 mg tablet active TAKE 1 TABLET BY MOUTH TWICE A DAY 07/05 Ericka Perez nifedipine 90 mg tablet extended release active TAKE 1 TABLET BY MOUTH DAILY 06/11 Carolina CHISHOLM carvedilol 12.5 mg tablet completed TAKE 1 TABLET BY MOUTH TWICE DAILY 06/11 - 07/05 Vicki Cantu atorvastatin 40 mg tablet completed TAKE 1 TABLET BY MOUTH DAILY 06/11 - 07/05 Vicki Cantu atorvastatin 40 mg tablet completed - 06/11 Andrey Durham MD Trulicity 1.5 mg/0.5 mL pen injector active Alonzo Fuller bumetanide 1 mg tablet completed once a day 10/26 - 06/11 Andrey Durham MD sevelamer carbonate 800 mg tablet active 2 three times a day 10/26 Andrey Durham MD nifedipine 30 mg tablet extended release completed Take 1 by mouth once a day 10/26 - 06/11 Andrey Ramadan MD carvedilol 12.5 mg tablet completed Take 1 tablet by mouth twice a day 12/05 - 06/11 Andrey Durham MD FERROUS SULFATE 324 (65 FE) MG ORAL TABLET DELAYED RELEASE completed take one daily 12/25 - 07/11 Andrey Durham MD VITAMIN D (ERGOCALCIFEROL) 10352 UNIT ORAL CAPSULE completed take 1 tablet once weekly 10/18 - 07/11 Andrey Durham MD HYDROCHLOROTHIAZIDE 25 MG ORAL TABLET completed Take one tablet daily 08/07 - 10/18 Kwaku Barahona PROCARDIA XL 60 MG ORAL TABLET EXTENDED RELEASE 24 HOUR completed Take one tablet daily 08/07 - 01/27 Vicki Cantu This is a dosage increase from 30mg daily PIOGLITAZONE HCL 15 MG ORAL TABLET completed 1 tab once daily - 01/27 Verónica Norwood LEVOTHYROXINE SODIUM 50 MCG ORAL TABLET completed once a day 11/12 - 07/11 Andrey Durham MD METOLAZONE 5 MG ORAL TABLET completed as directed 11/30 - 01/27 Verónica Norwood COREG 12.5 MG ORAL TABLET completed ONE TAB. TWICE DAILY - 01/27 Vicki Cantu ASPIRIN ADULT LOW DOSE 81 MG ORAL TABLET DELAYED RELEASE completed One Tab By Mouth Daily 11/12 - 10/18 Kwaku Barahona BUMEX 1 MG ORAL TABLET completed 2 pills twice a day 11/12 - 10/18 Kwaku Barahona GABAPENTIN 300 MG ORAL CAPSULE completed twice daily - 10/18 Kwaku Barahona FUROSEMIDE 20 MG ORAL TABLET completed take one tablet twice daily 10/08 - 01/27 Yamilet Best BUMEX 2 MG ORAL TABLET completed one tab twice daily 09/18 - 01/27 Yamilet Best POTASSIUM CHLORIDE SIMONE ER 20 MEQ ORAL TABLET EXTENDED RELEASE completed ONE TAB. DAILY - 01/27 Yamilet Best CLINDAMYCIN HCL 150 MG ORAL CAPSULE completed 4 times daily - 01/27 Yamilet eBst FUROSEMIDE 40 MG ORAL TABLET completed once daily - 10/08 Steph Medina RN METOPROLOL TARTRATE 50 MG ORAL TABLET completed 50 mg po bid - 11/12 Harlan Jung METFORMIN HCL 500 MG ORAL TABLET completed twice daily - 01/27 Yamilet Best CITALOPRAM HYDROBROMIDE 20 MG ORAL TABLET completed 1 tab daily - 11/12 Harlan Jung LOSARTAN POTASSIUM 100 MG ORAL TABLET completed Take one tablet daily - 10/18 Kwaku Barahona glimepiride 1 mg tablet completed once a day 11/30 - 06/11 Andrey Durham MD SOCIAL HISTORY Date Observation Value Provider personal history of marijuana use no Andrey Durham MD drug use no Andrey Ramsay alcohol use no Andrey Ramsay passive cigarette sm [facility] exposure no Andrey Durham MD smoking, year quit 1989 Andrey downs MD cigarette use yes Andrey Durham MD smoking status Former smoker Andrey contreras MD personal history of marijuana use no Carolina Ventimiglia [facility] drug use no Carolina Ventimig kerry [facility] alcohol use no Carolina Ventimig kerry [facility] passive cigarette sm [facility] exposure no Carolina Ventimiglia [facility] smoking, year quit 1989 Carolina Ve ntimiglia [facility] cigarette use yes Carolina Ventimi glia [facility] smoking status Former smoker Carolina Venti miglia [facility] passive cigarette sm [facility] exposure no Andrey Durham MD smoking, year quit 1989 Andrey downs MD cigarette use yes Andrey Duhram MD smoking status Former smoker Andrey contreras MD passive cigarette sm [facility] exposure no Andrey Durham MD smoking, year quit 1989 Andrey downs MD cigarette use yes Andrey Durham MD smoking status Former smoker Andrey contreras MD passive cigarette sm [facility] exposure no Andrey Durham MD social history E&M Marital Statu s: Leonid walker: 3 O ccupation: Retired Smoking History: Sarah foley is a former smoker. Andrey Durham MD smoking, year quit 1989 Vicki Amaya enenfelder cigarette use yes Vicki Alvareznf elder smoking status Former smoker Vicki Alvarez nfelder social history E&M S moking History: Sarah foley is a former smoker. Ruslan Vazquez MD social history reviewed E&M revi ewed - no changes required Ruslan Vazquez MD smoking, year quit 1989 Tonsha Mo ss cigarette use yes Tonsha Huerta smoking status Former smoker Tonsha Huerta social history reviewed E&M revi ewed - no changes required Ruslan Vazquez MD social history E&M S moking History: Sarah foley is a former smoker. Ruslan Vazquez MD smoking, year quit 1989 Gladys Cat cigarette use yes Gladys miller smoking status Former smoker Gladys Oconnor cait social history reviewed E&M revi ewed - no changes required Ruslan Vazquez MD social history E&M S moking History: Sarah foley is a former smoker. Ruslan Vazquez MD smoking, year quit 1989 Verónica Johnathan s cigarette use yes Verónica Enma smoking status Former smoker Verónica Enma social history reviewed E&M revi ewed - no changes required Ruslan Vazquez MD social history E&M S moking History: Sarah foley is a former smoker. Ruslan Vazquez MD social history reviewed E&M revi ewed - no changes required Ruslan Vazquez MD smoking, year quit 1989 Gladys Cat cigarette use yes Gladys pearlon smoking status Former smoker Gladys Brown social history reviewed E&M revi ewed - no changes required Ruslan Vazquez MD social history E&M S moking History: P atelpidoi is a former smoker. Ruslan Vazquez MD smoking, year quit 1989 Gladys Cat cigarette use yes Gladys Joel on smoking status Former smoker Gladys Villalobosson number of grandchildren Ruslan Vazquez MD social history reviewed E&M revi ewed - no changes required Ruslan Vazquez MD social history E&M S moking History: P atelpidio is a former smoker. Ruslan Vazquez MD smoking, year quit 1989 Gladys Cat cigarette use yes Gladys Joel pearlon smoking status Former smoker Gladys Brown number of grandchildren Nii Doll MD U willi Doll MD social history reviewed E&M revi ewed - no changes required Nii Doll MD smoking, year quit 1989 Vicki li cigarette use yes Vicki Leon [facility] smoking status Former smoker Vicki angeleser smoking, year quit 1989 Gladys Cat cigarette use yes Gladys Maldonado enson smoking status Former smoker Gladys [facility] number of grandchildren Ruslan Jung social history reviewed E&M revi ewed - no changes required Harlan Jung social history E&M Smoking Histo ry: P atelpidio is a former smoker. Harlan Jung smoking, year quit 1989 Vicki Amaya enenfelder cigarette use yes Vicki Alvareznf elder smoking status Former smoker Vicki Alvarez nfelder social history E&M S moking History: Sarah foley is a former smoker. Ruslan Vazquez MD smoking, year quit 1989 Ruslan Vazquez MD cigarette use yes Ruslan abreu MD smoking status Former smoker Ruslan connolly MD social history reviewed E&M revi ewed - no changes required Ruslan Vazquez MD number of grandchildren Nii Lavon [place] A antonietta Neville [facility] social history reviewed E&M revi ewed - no changes required Carolina Neville [facility] smoking, year quit 1989 Gladys Cat cigarette use yes Gladys miller smoking status Former smoker Gladys Villalobosson social history E&M S moking History: Sarah foley is a former smoker. Ruslan Vazquez MD social history reviewed E&M revi ewed - no changes required Ruslan Vazquez MD smoking, year quit 1989 Gladys Cat cigarette use yes Gladys Maldonado paul smoking status Former smoker Gladys Brown MENTAL STATUS Date Observation Value Provider energy level yes Tiarra Tebid energy level yes Tiarra Tebid energy level yes Tiarra Tebid energy level yes Tiarra Tebid energy level yes Tiarra Tebid energy level yes Tiarra Tebid energy level yes Tiarra Tebid energy level no Tiarra Tebid energy level no Tiarra Tebid FAMILY HISTORY Family Member Condition Full Brother Family History of Hy pertension: Full Brother Family History of Di abetes: Father Family History of Co ronary Artery Disease: Father Family History of Di abetes: INSURANCE PROVIDERS Payer name Policy type / Coverage type Monica red democrat ID [id number] (PPO C-SNP) [facility] insurance Egr [employer] [id number] [facility] Medicaid 1 [id number] ADVANCE DIRECTIVES Name Date DISCUSSED - NO DECISION MADE TREATMENT PLAN Date Name Performer Cardiology:BP adequately control led. Andrey Durham MD Cardiology:The patie nt is using CPAP on a regular basis. The patient has been benefiting from therapy and should continue use. Andrey Durham MD Cardiology:On HD Andrey Ramsay Cardiology:Changed diet and is l osing weight. Andrey Durham MD Cardiology:08/18/24 D enies any more CP. Stress test was somewhat equivocal in inferior wall, but no definite ischemia. Cath in 2016 showed normal cors. No indication for invasive eval or further testing at this time. L ast visit P alaina has been having chest pain that radiates down her left arm associated with palpitations. Occurs mainly at HD and most likely r/t treatment. We will however, complete tele monitor to r/o arrhythmia will do stress test to r/o ischemia. Patient in WC for visit today and cannot ambulate. H er updated medication list for this problem includes: Nifedipine 90 Mg Tablet Extended Release (Nifedipine) ..... Take 1 tablet by mouth daily Aspirin 81 Mg Tablet,delayed Release (dr/ec) (Aspirin) ..... Take 1 tablet by mouth every day Carvedilol 12.5 Mg Tablet (Carvedilol) ..... Take 1 tablet by mouth twice a day Andrey Durham MD Cardiology:Last ECHO EF 60j% Kurt Durham MD Cardiology: H er updated medication list for this problem includes: Aspirin 81 Mg Tablet,delayed Release (dr/ec) (Aspirin) ..... Take 1 tablet by mouth every day Trulicity 1.5 Mg/0.5 Ml Pen Injector (Dulaglutide) Carolina CHISHOLM Cardiology:ESRD on H D f ollows with Dr. Al LOPEZP Cardiology:BP 145/67 continue present medication regimen H er updated medication list for this problem includes: Nifedipine 90 Mg Tablet Extended Release (Nifedipine) ..... Take 1 tablet by mouth daily Aspirin 81 Mg Tablet,delayed Release (dr/ec) (Aspirin) ..... Take 1 tablet by mouth every day Carvedilol 12.5 Mg Tablet (Carvedilol) ..... Take 1 tablet by mouth twice a day [place] Ramezceilna [facility] Cardiology:will plan tele monitor to r/o arrhythmia H er updated medication list for this problem includes: Nifedipine 90 Mg Tablet Extended Release (Nifedipine) ..... Take 1 tablet by mouth daily Aspirin 81 Mg Tablet,delayed Release (dr/ec) (Aspirin) ..... Take 1 tablet by mouth every day Carvedilol 12.5 Mg Tablet (Carvedilol) ..... Take 1 tablet by mouth twice a day [facility] Cardiology:Patient h as been having chest pain that radiates down her left arm associated with palpitations. Occurs mainly at HD and most likely r/t treatment. We will however, complete tele monitor to r/o arrhythmia will do stress test to r/o ischemia. Patient in WC for visit today and cannot ambulate. H er updated medication list for this problem includes: Nifedipine 90 Mg Tablet Extended Release (Nifedipine) ..... Take 1 tablet by mouth daily Aspirin 81 Mg Tablet,delayed Release (dr/ec) (Aspirin) ..... Take 1 tablet by mouth every day Carvedilol 12.5 Mg Tablet (Carvedilol) ..... Take 1 tablet by mouth twice a day [facility] Cardiology Andrey Durham MD Cardiology Andrey Durham MD Cardiology Andrey Durham MD Cardiology Andrey Durham MD Cardiology Andrey Durham MD Cardiology Andrey Durham MD Cardiology Andrey Durham MD Cardiology Andrey Durham MD Cardiology:Has been out of meds for 2 weeks. Scripts sent. Andrey Durham MD Cardiology Follow up Andrey mo MD Cardiology Follow up Andrey mo MD Cardiology Follow up :Can't tole rate CPAP Andrey Durham MD Cardiology Follow up Andrey mo MD Cardiology Follow up Andrey mo MD Cardiology Follow up Andrey mo MD Cardiology: B P today: 157/86 P rior BP: 140/83 (08/13/2018) Labs Reviewed: C reat: 2.23 (06/19/2017) C hol: 160.0 (09/07/2016) HDL: 33.0 (09/07/2016) T.0 (09/07/2016) Orders: 9 9215 HIGH Complex (CPT-91868) M UGA (LVEF) (CPT-28146) Ruslan Vazquez MD Cardiology:Improved after HD. Sa steven Vazquez MD Cardiology: H as venous insufficiency. Ruslan Vazquez MD Cardiology:Not on CP AP anymore, taken back by insurance. Ruslan Vazquez MD Cardiology:On HD wit h John. Had IVUSing done of the legs to eval for October Thurner Compression, was negative. Ruslan Vazquez MD Cardiology:Started o n HD. Expect this to improve over time as volume status changes. Ruslan Vazquez MD Cardiology: IMPRESSION: 1 . Normal Coronary arteries 2 . Severe pulmonary hypertension 3 . Elevated LVEDP 4 . Elevated SBP 5 . No evidence of compression of the IVC or Left iliac/femoral veins to explain chronic leg edema Ruslan Vazquez MD Cardiology:Sees renal. Started o n HD Ruslan Vazquez MD Cardiology:Now weari ng CPAP. The patient is using CPAP on a regular basis. The patient has been benefiting from therapy and should continue use. Ruslan Vazquez MD Cardiology: L VEF roughly 45-50%, grossly unchanged. Ruslan Vazquez MD Cardiology follow up :Probably will improve once on dialysis. Ruslan Vazquez MD Cardiology follow up :Limited by renal function for medications. T he following medications were removed from the medication list: Pioglitazone Hcl 15 Mg Oral Tablet (Pioglitazone hcl) ..... 1 tab once daily Her updated medication list for this problem includes: Glimepiride 1 Mg Oral Tablet (Glimepiride) ..... Once daily Ruslan Vazquez MD Cardiology follow up :LVEF roughly 45-50%, grossly unchanged. Ruslan Vazquez MD Cardiology follow up :Planning for AV fistula per Dr. Melendez. Ruslan Vazquez MD Cardiology follow up : I mproved with ECP. Orders: E KG (CPT-25371) Her updated medication list for this problem includes: Procardia Xl 60 Mg Oral Tablet Extended Release 24 Hour (Nifedipine) ..... Take one tablet daily Coreg 12.5 Mg Oral Tablet (Carvedilol) ..... One tab. twice daily Ruslan Vazquez MD Cardiology follow up : N ot compliant with CPAP which is her underlying problem. Has not seen Dr. James to address problem with machine. Ruslan Vazquez MD Cardiology:Has venou s insufficiency. Will refer to [facility] for eval. W ill hold off on ECP for 2 weeks until leg heals. Ruslan Vazquez MD Cardiology:Secondary to uncontrolled JEANE most likely. W ill repeat echo. Ruslan Vazquez MD Cardiology:Sees Can polanco for renal. B Ps grossly uncontrolled. Ruslan Vazquez MD Cardiology:BPs are g rossly elevated. B P is 162/92 on recheck. The following medications were removed from the medication list: Hydrochlorothiazide 25 Mg Oral Tablet (Hydrochlorothiazide) ..... Take one tablet daily Aspirin Adult Low Dose 81 Mg Oral Tablet Delayed Release (Aspirin) ..... One tab by mouth daily Bumex 1 Mg Oral Tablet (Bumetanide) ..... 2 pills twice a day Losartan Potassium 100 Mg Oral Tablet (Losartan potassium) ..... Take one tablet daily Her updated medication list for this problem includes: Procardia Xl 60 Mg Oral Tablet Extended Release 24 Hour (Nifedipine) ..... Take one tablet daily Metolazone 5 Mg Oral Tablet (Metolazone) ..... As directed Coreg 12.5 Mg Oral Tablet (Carvedilol) ..... One tab. twice daily Ruslan Vazquez MD Cardiology:Not compl iant with CPAP which is her underlying problem. Has not seen Dr. James to address problem with machine. Ruslan Vazquez MD Cardiology:Will hold off on ECP for 2 weeks until leg heals. Ruslan Vazquez MD Cardiology:EF has improved. 50% recently. Ruslan Vazquez MD Cardiology Ruslan Vazquez MD Cardiology:Improved with ECP. H er updated medication list for this problem includes: Procardia Xl 60 Mg Oral Tablet Extended Release 24 Hour (Nifedipine) ..... Take one tablet daily Coreg 12.5 Mg Oral Tablet (Carvedilol) ..... One tab. twice daily Aspirin Adult Low Dose 81 Mg Oral Tablet Delayed Release (Aspirin) ..... One tab by mouth daily Ruslan Vazquez MD Cardiology: H ad JEANE workup done at [facility]. Pending CPAP. Is having issues getting CPAP machine. Will address with provider. Ruslan Vazquez MD Cardiology:Add Proca rdia XL 30mg daily. BP 180 today. BP today: 182/88 P rior BP: 207/92 (02/08/2017) Labs Reviewed: C reat: 1.4 (09/07/2016) C hol: 160.0 (09/07/2016) HDL: 33.0 (09/07/2016) T.0 (09/07/2016) Her updated medication list for this problem includes: Procardia Xl 30 Mg Oral Tablet Extended Release 24 Hour (Nifedipine) ..... One per day Metolazone 5 Mg Oral Tablet (Metolazone) ..... As directed Coreg 12.5 Mg Oral Tablet (Carvedilol) ..... One tab. twice daily Aspirin Adult Low Dose 81 Mg Oral Tablet Delayed Release (Aspirin) ..... One tab by mouth daily Bumex 1 Mg Oral Tablet (Bumetanide) ..... 2 pills twice a day Losartan Potassium 100 Mg Oral Tablet (Losartan potassium) ..... Take one tablet daily Ruslan Vazquez MD Cardiology: H ad JEANE workup done at [facility]. Pending CPAP. Is having issues getting CPAP machine. Will address with provider. Ruslan Vazquez MD Cardiology:Starting ECP on 05/27/17. Recurrent chest pain. This patient?s angina is disabling and in my opinion is not readily amenable to surgical intervention by PTCA or cardiac bypass because the patient's coronary anatomy is not readily amenable to such procedures. Rulsan Vazquez MD Cardiology: H er updated medication list for this problem includes: Metolazone 5 Mg Oral Tabs (Metolazone) ..... As directed Coreg 12.5 Mg Tabs (Carvedilol) ..... One tab. twice daily Aspirin Adult Low Dose 81 Mg Oral Tbec (Aspirin) ..... One tab by mouth daily Bumex 1 Mg Oral Tabs (Bumetanide) ..... 2 pills twice a day Losartan Potassium 100 Mg Oral Tabs (Losartan potassium) ..... Take one tablet daily Ruslan Vazquez MD Cardiology:Hasn't ta trenton BP meds this morning. H er updated medication list for this problem includes: Metolazone 5 Mg Oral Tabs (Metolazone) ..... As directed Coreg 12.5 Mg Tabs (Carvedilol) ..... One tab. twice daily Aspirin Adult Low Dose 81 Mg Oral Tbec (Aspirin) ..... One tab by mouth daily Bumex 1 Mg Oral Tabs (Bumetanide) ..... 2 pills twice a day Losartan Potassium 100 Mg Oral Tabs (Losartan potassium) ..... Take one tablet daily Ruslan Vazquez MD Cardiology:This charline ent?s angina is disabling and in my opinion is not readily amenable to surgical intervention by PTCA or cardiac bypass because the patient's coronary anatomy is not readily amenable to such procedures. Ruslan Vazquez MD Cardiology:Had JEANE w orkup done at [facility]. Pending results. Ruslan Vazquez MD Cardiology Follow up :Currently scheduling a sleep study. Nii Doll MD Cardiology Follow up :Due to her venous insufficiency and CHF, which also cause her to have varicose veins. Will prescribe compression stockings to wear during the day. SHe has severe Pulmonary HTN and pulsitile. She will need sleep apnea treated and in this instance just treating the GSV is not as successful. Nii Doll MD Cardiology Follow up Nii mclean MD Cardiology Follow up :Well controlled. BP today: 121/60 P rior BP: 187/84 (11/30/2016) Labs Reviewed: C reat: 1.4 (09/07/2016) C hol: 160.0 (09/07/2016) HDL: 33.0 (09/07/2016) T.0 (09/07/2016) Nii Doll MD Cardiology:Hasn't ta trenton morning emds. O rders: 9 9215 HIGH Complex (CPT-83094) M UGA (LVEF) (CPT-58931) Sobia Doll (*) Ruslan Vazquez MD Cardiology Ruslan Vazquez MD Cardiology:See UQ Ruslan abreu MD Cardiology: U nderlying problem probably from renal hyperperfusion and elevated BNP for CHF, cardiac cath since her echo was abnormal as well.Moderate Systolic Left Ventricle Dysfunction with Estimated Fraction 35 - 40%. Check MUGA Ruslan Vazquez MD Cardiology:Planning on sleep study workup to be done Ruslan Vazquez MD Cardiology Follow up :No evidence by IVUS of compression of the IVC or left iliac/femoral veins to explain chronic leg edema. Will obtain venous duplex. Harlan Jung Cardiology Follow up :Labs: C reatinine: 1.55 (11/10/2016) BUN: 47 (11/10/2016) [facility] Follow up :Labs: H gb: 10.2 (11/10/2016) Hct: 34.1 (11/10/2016) [facility] Follow up :BP today: 185/96 P rior BP: 142/80 (10/12/2016) The following medications were removed from the medication list: Metoprolol Tartrate 50 Mg Tabs (Metoprolol tartrate) ..... 50 mg po bid Her updated medication list for this problem includes: Bumex 2 Mg Oral Tabs (Bumetanide) ..... One tablet twice daily Losartan Potassium 100 Mg Oral Tabs (Losartan potassium) ..... Take one tablet daily [facility] Follow up :Normal coronary arteries by cath on 10/29/2016. [facility] Follow up:Sleep study is scheduled. [facility] Follow up :Cardiac cath on 10/29/2016 showed severe pulmonary HTN. Had a recent admission for SOB and leg swelling. Improved with Bumex. Sleep study is scheduled. Recommending pulmonary consultation. [facility] Follow up Harlan Barnes [facility] Cardiology Follow up :Had a recent admission for SOB and leg swelling. Improved with Bumex. No evidence by IVUS on 10/29/2016 of compression of the IVC or left iliac/femoral veins to explain chronic leg edema. Will obtain venous duplex. [facility] Follow up :The pt has pulmonary HTN. Had a recent admission for SOB and leg swelling. Improved with Bumex. Recommending pulmonary consultation. [facility] Cardiology:Attributa ble to renal failure. May need to go on dialysis, sees Dr. Melendez. Ruslan Vazquez MD Cardiology:Underlyin g problem probably from renal hyperperfusion and elevated BNP for CHF, will need to evaluate for cardiac cath since her echo was abnormal as well. Ruslan Vazquez MD Cardiology:Needs cath, pending r enal function. Ruslan Vazquez MD Cardiology Ruslan Vazquez MD Cardiology Carolina patrick TONG CARRIER Cardiology:She has n ot had any diuretics since being discharged from the hospital. Will send her to the ER for readmit. Carolina Neville TONG CARRIER Cardiology:Chronic systolic CHF Ruslan Vazquez MD Cardiology Ruslan Vazquez MD Cardiology:[place] [facility] [place] test with LV dysfunc tion. Ruslan Vazquez MD Cardiology:Could be having venous compression. She has a history of venous insufficiency. Left leg is a lot more swollen than the right leg. Will arrange for IVUS to be done with heart cath via left femoral groin access. Ruslan Vazquez MD Date Name Stress Regadenoson Monitor - Telemetry (Mobile Cardiac) Complete Echo Complete Echo MUGA (LVEF) Complete Echo BASIC METABOLIC PANE L W/EGFR Other Test ECP - Medicare ECP - Medicare MUGA (LVEF) Venous Doppler Bilat eral LE - Reflux COMPREHENSIVE METABO LIC PANEL W/EGFR BASIC METABOLIC PANE L W/EGFR PROTHROMBIN TIME WIT H INR CBC (INCLUDES DIFF/P LT) LIPID PANEL LIPID PANEL PROTHROMBIN TIME WIT H INR CBC (H/H, RBC, INDIC ES, WBC, PLT) COMPREHENSIVE METABO LIC PANEL W/EGFR Cardiac Cath - L/R- [facility] HISTORY OF PROCEDURES Procedure Date Procedure Name Provider Procedure Notes S tatus EKG Andrey Durham MD complete d EKG Ruslan Vazquez MD completed EKG Ruslan Vazquez MD completed SNOMED-CT: [id number] Current Medications Documented Ruslan Vazquez MD completed Ultra Tag RBCs, 1 unit Ruslan Vazquez MD completed DIONISIO Douglas MD complet ed EKG Ruslan Vazquez MD completed SNOMED-CT: 167802132 [id number] Current Medications Documented Ruslan Vazquez MD completed EKG Ruslan Vazquez MD completed SNOMED-CT: [id number] 912163 Current Medications Documented Ruslan Vazquez MD completed SNOMED-CT: [id number] Physical Exam, Performed: Pulse Exam of Foot Nii Doll MD completed SNOMED-CT: 390694324 632843 Current Medications Documented Nii Doll MD completed EKG Ruslan Vazquez MD completed SNOMED-CT: 160282461 751453 Current Medications Documented Ruslan Vazquez MD completed SNOMED-CT: 30187155 Physical Exam, Performed: Pulse Exam of Foot Douglas Pandya MD completed SNOMED-CT: [id number] 938119 Current Medications Documented Douglas Pandya MD completed EKG Ruslan Vazquez MD completed SNOMED-CT: 824665256 077878 Current Medications Documented Ruslan Vazquez MD completed SNOMED-CT: 60035426 Physical Exam, Performed: Pulse Exam of Foot Nii Doll MD completed SNOMED-CT: [id number] 145535 Current Medications Documented Nii Doll MD completed EKG Ruslan Vazquez MD completed SNOMED-CT: 620409364 594217 Current Medications Documented Ruslan Vazquez MD completed
--- OUTSIDE RECORDS SUMMARY | 2024-08-22 08:11 | XMS_ITS | Data Portability ---
Author Organization [facility] Address [address] [place] [address] Care Team Providers Care Tube Backer Name Role Phone CHERELLE PACHECO Grip Wrapper RIYA CROWE Medicaid Eligibility Specialist Assessment No assessment recorded. Plan of Treatment Reminders Order Date Submit Date Provider Last Modified By Organization Details Last Modified Time Details Appointments None recorded. Lab HbA1c (hemoglobi n A1c), blood [address] [facility], [address] [place] [address], [address], [place], [address], 5 12:33:40 lipid panel, serum [address] [facility], [address] [place] [address], [address], [place], [address], 5 12:33:40 TSH, ultra-sens itive, serum 2023 024 [facility], [address] [place] [address], [address], [place], [address], 4 11:14:55 H pylori urea breath test, co2 infrared 2023 024 [facility], [address] [place] [address], [address], [place], [address], 4 17:10:36 HbA1c (hemoglobi n A1c), blood 2023 024 [facility], [address], [address], [place], [address], 4 11:14:42 lipid panel, serum 2023 024 [facility], [address], [address], [place], [address], 4 11:14:40 CBC 2023 024 [facility], [address], [address], [place], [address], 4 11:14:45 basic metabolic 1998 panel, serum or plasma 2023 024 [facility], [address], [address], [place], [address], 4 11:14:41 vitamin B12, serum 2023 024 [facility], [address], [address], [place], [address], 4 11:14:43 TSH, ultra-sens itive, serum 2023 024 [facility], [address], [address], [place], [address], 4 11:14:[address] [facility], [address], [address], [place], [address], 3 09:49:30 basic metabolic 1998 panel, serum or plasma [address] [facility], [address], [address], [place], [address], 3 09:49:31 HIV 1 + 2, meaningful use set 2021 [facility], [address], [place], [address], 2 11:25:34 hepatitis C Ab, signal-to- cutoff, serum or plasma 2021 022 [facility], [address], [address], [place], [address], 2 11:25:34 HbA1c (hemoglobi n A1c), blood 2021 022 [facility], [address], [place], [address], 2 11:25:34 lipid panel, serum 2021 [facility], [address], [address], [place], [address], 3 22:37:55 noninvasiv e colorectal cancer DNA + occult blood screening, QL, stool 2021 [facility] (Cologuard Orders Only), [address], [address], [place], [address], 3 11:28:56 Referral physical therapist referral - OA of the left knee 2023 024 [facility], [address] [place], [address], 4 18:08:41 gastroente rologist referral - Chronic Heartburn 2023 024 A[facility] Garces MD, [address] [facility] [address], [address], [place], [address], 4 12:00:57 physical therapist referral - 68 y/o lady with visual impairment , difficulty ambulating and chronic neck and right shoulder pain. 2023 024 [facility], [address] [place], [address], 4 16:21:22 physical therapist referral - Please evaluate for a lift chair, hospital bed/cassie g and evaluate and treat her poor balance [address] [facility], [address] [place], [address], 3 18:09:22 jackscrew worker referral - Diabetic with a foot ulcer 2021 022 [email or web address] Not available 3 17:54:53 Procedures None recorded. Surgeries None recorded. Imaging XR, knee - Pain, recent fall 2023 024 [facility] ([facility] Sched[facility]), [address] [place], [address], 4 13:06:37 MAMMO, screening, bilateral 2023 024 [facility] ([facility]), [address] [place], [address], 4 10:37:32 XR, cervical spine - Pain 2023 024 [facility] ([facility]), [address] [place], [address], 4 13:25:03 XR, shoulder - Pain 2023 024 [facility] ([facility] Sched[facility]), [address] [place], [address], 4 13:21:58 electromyo gram + nerve conduction study - Tingling and numbness of the L. forearm and hand after a fall 2023 024 [facility] (Cardiology & Emg), [address], [place], [address], 4 11:14:27 XR, elbow - Tingling and numbness of the L. forearm and hand after a fall 2023 024 [facility] ([facility] Sched[facility]), [address] [place], [address], 4 13:23:07 XR, chest, 2 view - Cough 2021 022 [facility] (One Call Scheduling), [address] [place], [address], 3 15:58:22 MAMMO, screening, bilateral 2021 022 [email or web address] [facility] (One Call Scheduling), [address] [place], [address], 3 16:23:43 Medication Orders terbinafin e HCl 1 % topical cream 2023 024 [facility], [address] [place] [address] , [address], [place], [place], [id number], 4 12:20:10 atorvastat in 40 mg tablet 2022 023 [facility], [address] [place] [address] Tosha Mclain, [address], [place], [place], [id number], 3 16:46:22 atorvastat in 40 mg tablet 2021 022 [facility], [address] [place] [address] , [address], [place], [place], [id number], 11:25:34 Patient TargetsNo targets recorded. Patient Instructions Encounter Date Encounter Id Patient Instructions Last Modified By Organization Details Last Modified Time 05/15/2022 [id number] learning about type 2 diabetes oajao Not available 05/15/2022 11:25:34 type 2 diabetes: care instructions oajao Not available 05/15/2022 11:25:34 cough: care instructions oajao Not available 05/15/2022 11:26:12 learning about breast cancer screening oajao Not available 05/15/2022 11:25:34 body mass index: care instructions oajao Not available 05/15/2022 11:25:34 learning about healthy weight oajao Not available 05/15/2022 11:25:34 Labs Podiatry Most recent lab results from [facility] Boostrix/Pneumoni a vaccine on her follow up visit Cologuard Start Atorvastatin, side effects were discussed Follow up in 3 months with an accurate list of her medications or the medications CXR oajao Not available 05/15/2022 11:49:49 10/08/2022 [id number] Labs, old and ne w orders D/C summaries from [facility] as previously ordered Cologuard as previously ordered (Declined) Bivalent COVID booster in November, (Declined) Immunization records from [facility] Restart Atorvastatin PT to please evaluate for a lift chair, hospital bed/railings and evaluate and treat her poor balance Bedside commode Test blood sugars 3/day Follow up in 4-6 weeks (30 minutes) oajao Not available 10/08/2022 16:52:31 Detailed visit oajao Not available 0 10/08/2022 18:11:38 08/01/2023 [id number] mammogram: about this test oajao Not available 08/01/2023 11:54:11 tetanus and diphtheria booster: care instructions oajao Not available 08/01/2023 12:34:08 athlete's foot: care instructions oajao Not available 08/01/2023 12:20:01 neuropathic pain : care instructions oajao Not available 08/01/2023 11:59:05 Most recent consultation notes from Drs. Pacheco and [facility] Xrays PT Most recent lab results from [facility] Follow up in 6 weeks (Post EMG/NCS) oajao Not available 08/01/2023 12:37:58 Detailed visit oajao Not available 0 08/01/2023 12:38:04 11/25/2023 [id number] cervical disc disease: care instructions oajao Not available 11/25/2023 16:20:03 A healthy lifestyle: care instructions oajao Not available 11/25/2023 15:43:48 Indigestion (Dyspepsia): Care Instructions oajao Not available 11/25/2023 16:21:41 body mass index: care instructions oajao Not available 11/25/2023 15:43:31 learning about healthy weight oajao Not available 11/25/2023 15:43:31 Labs Xray Should return with all her medications Wrist splint WC Follow up in 4 weeks (30 minutes) oajao Not available 11/25/2023 16:20:25 Detailed visit oajao Not available 0 11/25/2023 20:35:23 01/02/2024 [id number] knee arthritis: care instructions oajao Not available 01/02/2024 11:21:32 PT GI Lifestyle changes Most recent consultation note from Dr [facility] ER with severe chest pain Labs in 5 months Follow up in 6 months and PRN oajao Not available 01/02/2024 11:25:14 Reason for Referral Foxing Closer Referral for Ulce r of toe Diabetic with a foot ulcer Diabetic with a foot ulcer Referring Physician: Meggan Littlejohn, Internal Medicine, Encounter Date: 05/15/2022 Physical Therapist Referral for Physical deconditioning Please evaluate for a lift chair, hospital bed/railings and evaluate and treat her poor balance Please evaluate for a lift chair, hospital bed/railing and evaluate and treat her poor balance Referring Physician: Meggan Littlejohn, Internal Medicine, Encounter Date: 10/08/2022 Physical Therapist Referral for Difficulty walking 68 y/o lady with visual impairment, difficulty ambulating and chronic neck and right shoulder pain. 68 y/o lady with visual impairment, difficulty ambulating and chronic neck and right shoulder pain. Referring Physician: Meggan Littlejohn, Internal Medicine, Encounter Date: 08/01/2023 Physical Therapist Referral for Osteoarthritis of knee OA of the left knee OA of the left knee Referring Physician: Meggan Littlejohn, Internal Medicine, Encounter Date: 01/02/2024 Supervisor Weaving Referral for Heartburn Chronic Hearburn Chronic Heartburn Referring Physician: Meggan Littlejohn, Internal Medicine, Encounter Date: 01/02/2024 Results Created Date Observation Date Name Description Value Unit Range Abnormal Flag Note LastModifiedBy Organization Detail LastModifiedTime 05/15/20 23 05/15/2023 COLOG UARD cologuard result CANCEL LED - ORDER D not applic able Not Available [facility] (Cologuard Orders Only) [address], [place], [address], 05/15/2023 11:28:56 08/01/19 24 08/02/2023 LIPID PANEL cholesterol, total 116 mg/dL 100-19 9 Not Available [facility] ([facility]) [address] [facility], [place], [address], 08/02/2023 11:14:40 08/01/19 24 08/02/2023 LIPID PANEL triglyceride s 100 mg/dL 0-149 Not Available [facility] ([facility]) [address] [facility], [place], [address], 08/02/2023 11:14:40 08/01/19 24 08/02/2023 LIPID PANEL HDL cholesterol 42 mg/dL >39 Not Available [facility] ([facility]) [address] [place], [address], 08/02/2023 11:14:40 08/01/19 24 08/02/2023 LIPID PANEL VLDL cholesterol melinda 19 mg/dL 5-40 Not Available [facility] ([facility]) [address] [facility], [place], [address], 08/02/2023 11:14:40 08/01/19 24 08/02/2023 LIPID PANEL LDL chol calc ([facility]) 55 mg/dL 0-99 Not Available [facility] ([facility]) [address] [place], [address], 08/02/2023 11:14:40 08/01/19 24 08/02/2023 BASIC METAB OLIC PANEL (7) glucose 116 mg/dL 70-99 above high normal Not Available [facility] ([facility]) [address] [place], [address], 08/02/2023 11:14:41 08/01/19 24 08/02/2023 BASIC METAB OLIC PANEL (7) BUN 31 mg/dL 8-27 above high normal Not Available [facility] ([facility]) [address] [place], [address], 08/02/2023 11:14:41 08/01/19 24 08/02/2023 BASIC METAB OLIC PANEL (7) creatinine 6.71 mg/dL 0.57-1 .00 above high normal Not Available [facility] ([facility]) [address] [place], [address], 08/02/2023 11:14:41 08/01/19 24 08/02/2023 BASIC METAB OLIC PANEL (7) eGFR 6 mL/mi n/1.7 3 >59 below low normal Not Available [facility] ([facility]) [address] [place], [address], 08/02/2023 11:14:41 08/01/19 24 08/02/2023 BASIC METAB OLIC PANEL (7) BUN/creatini ne ratio 5 12-28 below low normal Not Available [facility] ([facility]) [address] [place], [address], 08/02/2023 11:14:41 08/01/19 24 08/02/2023 BASIC METAB OLIC PANEL (7) sodium 142 mmol/ L 134-14 4 Not Available [facility] ([facility]) [address] [place], [address], 08/02/2023 11:14:41 08/01/19 24 08/02/2023 BASIC METAB OLIC PANEL (7) potassium 5.8 mmol/ L 3.5-5. 2 above high normal Not Available [facility] ([facility]) [address] [place], [address], 08/02/2023 11:14:41 08/01/19 24 08/02/2023 BASIC METAB OLIC PANEL (7) chloride 97 mmol/ L 96-106 Not Available [facility] ([facility]) [address] [place], [address], 08/02/2023 11:14:41 08/01/19 24 08/02/2023 BASIC METAB OLIC PANEL (7) carbon dioxide, total 27 mmol/ L 20-29 Not Available [facility] ([facility]) [address] [place], [address], 08/02/2023 11:14:41 08/01/19 24 08/02/2023 HEMOG LOBIN A1C hemoglobin A1C 6.8 % 4.8-5. 6 above high normal Predi abete s: 5.7 - 6.4 Diabe monserrat: >6.4 Glyce carlos contr ol for adult s with diabe monserrat: <7.0 Not Available [facility] ([facility]) [address] [place], [address], 08/02/2023 11:14:42 08/01/19 24 08/02/2023 VITAM IN B12 vitamin B12 349 pg/mL 232-12 45 Not Available [facility] ([facility]) [address] [place], [address], 08/02/2023 11:14:43 08/01/19 24 08/02/2023 TSH TSH 5.050 uIU/m L 0.450- 4.500 above high normal Not Available [facility] ([facility]) [address] [facility], [place], [address], 08/02/2023 11:14:44 08/01/19 24 08/02/2023 CBC, PLATE LET, NO DIFFE RENTI AL WBC 10.6 x10e3 /uL 3.4-10 .8 Not Available [facility] ([facility]) [address] [facility], [place], [address], 08/02/2023 11:14:45 08/01/19 24 08/02/2023 CBC, PLATE LET, NO DIFFE RENTI AL RBC 4.23 x10e6 /uL 3.77-5 .28 Not Available [facility] ([facility]) [address] [facility], [place], [address], 08/02/2023 11:14:45 08/01/19 24 08/02/2023 CBC, PLATE LET, NO DIFFE RENTI AL hemoglobin 12.7 g/dL 11.1-1 5.9 Not Available [facility] ([facility]) [address] [facility], [place], [address], 08/02/2023 11:14:45 08/01/19 24 08/02/2023 CBC, PLATE LET, NO DIFFE RENTI AL hematocrit 39.2 % 34.0-4 6.6 Not Available [facility] ([facility]) [address] [facility], [place], [address], 08/02/2023 11:14:45 08/01/19 24 08/02/2023 CBC, PLATE LET, NO DIFFE RENTI AL MCV 93 fL 79-97 Not Available [facility] ([facility]) [address] [facility], [place], [address], 08/02/2023 11:14:45 08/01/19 24 08/02/2023 CBC, PLATE LET, NO DIFFE RENTI AL MCH 30.0 pg 26.6-3 3.0 Not Available [facility] ([facility]) [address] [facility], [place], [address], 08/02/2023 11:14:45 08/01/19 24 08/02/2023 CBC, PLATE LET, NO DIFFE RENTI AL MCHC 32.4 g/dL 31.5-3 5.7 Not Available [facility] ([facility]) [address] [facility], [place], [address], 08/02/2023 11:14:45 08/01/19 24 08/02/2023 CBC, PLATE LET, NO DIFFE RENTI AL RDW 14.1 % 11.7-1 5.4 Not Available [facility] ([facility]) [address] [facility], [place], [address], 08/02/2023 11:14:45 08/01/19 24 08/02/2023 CBC, PLATE LET, NO DIFFE RENTI AL platelets 277 x10e3 /uL 150-45 0 Not Available [facility] ([facility]) [address] [facility], [place], [address], 08/02/2023 11:14:45 12/03/19 24 12/04/2023 TSH RFX ON ABNOR MAL TO FREE T4 TSH 2.240 uIU/m L 0.450- 4.500 Not Available [facility] ([facility]) [address] [facility], [place], [address], 12/04/2023 11:14:55 12/05/19 24 12/06/2023 H PYLOR I BREAT H TEST H pylori breath test NEGATI VE negati ve Not Available [facility] ([facility]) [address] [facility], [place], [address], 12/06/2023 17:10:36 04/26/20 22 04/26/2022 XR, humer us No observ ation record ed. oajao [facility] [address] [place], [address], 04/26/2022 15:43:16 04/26/20 22 04/26/2022 US, extre mity, nonva scula r No observ ation record ed. [facility] Orders [address] [place], [address], 04/26/2022 15:44:21 06/21/19 23 06/21/2022 CT, head, w/o contr ast No observ ation record ed. [facility] [address] [place], [address], 10/08/2022 16:09:04 06/21/19 23 06/21/2022 XR, chest No observ ation record ed. [facility] [address] [place], [address], 10/08/2022 16:09:03 08/27/19 24 08/27/2023 XR, shoul david No observ ation record ed. [facility] [address] [facility] [address], [place], [address], 11/25/2023 16:01:14 08/27/19 24 08/27/2023 XR, elbow No observ ation record ed. [facility] [address] [facility] [address], [place], [address], 11/25/2023 16:01:14 08/27/19 24 08/27/2023 XR, cervi melinda spine No observ ation record ed. [facility] [address] [facility] [address], [place], [address], 11/25/2023 16:01:14 09/04/19 24 09/03/2023 MAMMO , scree rene, bilat eral No observ ation record ed. [facility] [address] [place], [address], 11/25/2023 16:01:14 09/06/19 24 09/06/2023 CT, brain , w/o contr ast No observ ation record ed. [address] [facility], [place], [address], 11/25/2023 16:01:14 09/06/19 24 09/06/2023 CT, cervi melinda spine , w/o contr ast No observ ation record ed. [address] [address], [place], [address], 11/25/2023 20:41:46 09/06/19 24 09/06/2023 CT, thora cic spine , w/o contr ast No observ ation record ed. [address] [address], [place], [address], 11/25/2023 16:01:14 09/06/19 24 09/06/2023 XR, ribs, unila teral No observ ation record ed. [address] [address], [place], [address], 11/25/2023 16:01:14 09/06/19 24 09/06/2023 XR, shoul david No observ ation record ed. [address] [address], [place], [address], 11/25/2023 16:01:14 09/06/19 24 09/06/2023 XR, hip, unila teral No observ ation record ed. [address] [facility], [place], [address], 11/25/2023 16:01:14 09/06/19 24 09/06/2023 XR, elbow No observ ation record ed. [address] [address], [place], [address], 11/25/2023 16:01:14 09/06/19 24 09/06/2023 XR, humer us No observ ation record ed. [address], [address], 11/25/2023 16:01:14 09/07/19 24 09/06/2023 XR, knee No observ ation record ed. [address], [place], [address], 11/25/2023 16:01:14 09/07/19 24 09/06/2023 US, doppl er, venou s No observ ation record ed. [address], [place], [address], 11/25/2023 16:01:14 09/09/19 24 09/09/2023 MRI, brain + brain stem, w/o contr ast No observ ation record ed. [address], [place], [address], 11/25/2023 16:01:13 09/11/19 24 09/11/2023 US, carot id arter y No observ ation record ed. [address], [place], [address], 11/25/2023 16:01:13 09/11/19 24 09/11/2023 trans -thor acic echoc ardio gram (TTE) (PROC ) No observ ation record ed. [address], [place], [address], 11/25/2023 16:01:13 09/12/19 24 09/11/2023 US, duple x, carot id arter y No observ ation record ed. [address], [place], [address], 11/25/2023 16:01:13 09/12/19 24 09/11/2023 MRI, brain + brain stem, w/o contr ast No observ ation record ed. [address], [place], [address], 11/25/2023 16:01:13 09/18/19 24 09/17/2023 elect romyo gram + nerve condu ction study No observ ation record ed. [facility] [address] [facility] [address], [place], [address], 11/25/2023 16:01:13 12/03/19 24 12/03/2023 XR, knee No observ ation record ed. [facility] [address] [place], [address], 01/02/2024 11:07:22 01/09/20 24 01/07/2024 trans -thor acic echoc ardio gram (TTE) (PROC ) No observ ation record ed. [facility] [address] [facility] [address], [place], [address], 01/09/2024 19:42:48 02/19/20 24 02/19/2024 CT, head, w/o contr ast No observ ation record ed. [facility] [address] [facility] [address], [place], [address], 02/21/2024 09:10:21 05/21/20 24 05/21/2024 XR, chest No observ ation record ed. [facility] [address] [facility] [address], [place], [address], 05/22/2024 12:36:10 Result Notes None recorded. Problems Name Problem SNOMED Code Status Onset Date Resolution Date Notes Provider Name and Address Organization Details Recorded Time Nuclear senile cataract 380512947 Active 2016 Meggan Littlejohn MD Attn: Accounting ,[address] [facility], [place], [address] , [facility] 2 10:48:50 Acute bronchiti s 29106388 Active 2016 Meggan Littlejohn MD Attn: Accounting ,[address] [facility], [place], [address] , [facility] 2 10:48:50 Sleep apnea 45902227 Active 2016 Meggan Littlejohn MD Attn: Accounting ,[address] [place], [address] , [place] [facility] 2 10:48:50 Pre-surge ry testing Active 2016 Meggan Littlejohn MD Attn: Accounting ,[address] [place], [address] , [place] [facility] 2 10:48:50 Serum creatinin e outside reference range 833712321 Active 2016 Meggan Littlejohn MD Attn: Accounting ,[address] [place], [address] , [place] [facility] 2 10:48:51 Upper respirato ry infection 51256510 Active 2017 Meggan Littlejohn MD Attn: Accounting ,[address] [place], [address] , [place] [facility] 2 10:48:50 Kidney stone 18070303 Active 2017 Meggan Littlejohn MD Attn: Accounting ,[address] [place], [address] , [place] [facility] 2 10:48:50 Gastroeso phageal reflux disease 730659430 Active 2017 Meggan Littlejohn MD Attn: Accounting ,[address] [place], [address] , [place] [facility] 2 10:48:51 Serum vitamin B12 below reference range 528455396 Active 2017 Meggan Littlejohn MD Attn: Accounting ,[address] [place], [address] , [place] [facility] 2 10:48:50 Acute sinusitis 46135190 Active 2017 Meggan Littlejohn MD Attn: Accounting ,[address] [place], [address] , [place] [facility] 2 10:48:51 Chronic renal failure 82642750 Active 2017 Meggan Littlejohn MD Attn: Accounting ,[address] [facility], [place], [address] , [place] [facility] 2 10:48:51 Acute urinary tract infection 225179663 Active 2017 Meggan Littlejohn MD Attn: Accounting ,[address] [facility], [place], [address] , [place] [facility] 2 10:48:50 Tuberculo sis screening Active 2017 Meggan Littlejohn MD Attn: Accounting ,[address] [facility], [place], [address] , [place] [facility] 2 10:48:51 Hepatitis B screening Completed 201704/08/2018 Amol Morrison PA-C Attn: Accounting ,[address] [place], [address] , [place] [facility] 8 12:13:49 Hepatitis B screening required 954622667 Active 2017 Meggan Littlejohn MD Attn: Accounting ,[address] [facility], [place], [address] , [place] [facility] 2 10:48:50 Pain of right shoulder joint [id number] 990496 Active 2017 Meggan Littlejohn MD Attn: Accounting ,[address] [facility], [place], [address] , [place] [facility] 2 10:48:50 Chronic kidney disease 156041634 Active 2018 Meggan Littlejohn MD Attn: Accounting ,[address] [facility], [place], [address] , [place] [facility] 2 10:46:45 Essential hypertens ion 75880968 Active 2019 Meggan Littlejohn MD Attn: Accounting ,[address] [place], [address] , [place] [facility] 2 10:48:50 Vitamin D below reference range 455567815 Active 2020 Meggan Littlejohn MD Attn: Accounting ,[address] [facility], [place], [address] , [place] [facility] 2 10:48:50 Restless legs 75074637 Active 2020 Meggan Littlejohn MD Attn: Accounting ,[address] [facility], [place], [address] , [place] [facility] 2 10:48:50 Candidias is 96619595 Active 2021 Meggan Littlejohn MD Attn: Accounting ,[address] [facility], [place], [address] , [place] [facility] 2 10:48:50 Irritable bowel syndrome [id number] Active 2021 Meggan Littlejohn MD Attn: Accounting ,[address] [place], [address] , [place] [facility] 10:48:50 End stage renal failure on dialysis 705264440 Active 2021 Meggan Littlejohn MD Attn: Accounting ,[address] [place], [address] , [place] [facility] 10:48:50 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 [id number] Active 2021 Meggan Littlejohn MD Attn: Accounting ,[address] [place], [address] , [place] [facility] 10:48:50 Pneumonia 234743588 Active 2015 Meggan Littlejohn MD Attn: Accounting ,[address] [place], [address] , [place] [facility] 10:46:44 Chronic ulcer of foot 645641433 Active Meggan Littlejohn MD Attn: Accounting ,[address] [place], [address] , [place] [facility] 10:46:44 Type 2 diabetes mellitus with ulcer 059741025 Active Meggan Littlejohn MD Attn: Accounting ,[address] [facility], [place], [place], [address] [place] [address] , [place] [facility] 10:46:45 Chest pain 61470298 Active Meggan Littlejohn MD Attn: Accounting ,[address] [facility], [place], [place], [address] [place] [address] , [place] [facility] 2 10:48:50 D-dimer above reference range 826334015 Active Meggan Littlejohn MD Attn: Accounting ,[address] [facility], [place], [address] [place] [address] , [place] [facility] 10:48:50 Diabetes mellitus 83335739 Active Meggan Littlejohn MD Attn: Accounting ,[address] [facility], [place], [place], [address] [place] [address] , [place] [facility] 3 16:12:38 Legal blindness 65843271 Active 2021 Meggan Littlejohn MD Attn: Accounting ,[address] [facility], [place], [address] [place] [address] , [place] [facility] 2 11:22:08 Referral to ophthalmo logist declined by subject 136690812 Active 2021 Meggan Littlejohn MD Attn: Accounting ,[address] [facility], [place], [address] [place] [address] , [place] [facility] 2 11:50:18 [place] py declined 04132080727 9100 Active 2021 Meggan Littlejohn MD Attn: Accounting ,[address] [facility], [place], [address] [place] [address] , [place] [facility] 2 15:35:39 Tobacco dependenc e in remission 672814545 Active 2021 Meggan Littlejohn MD Attn: Accounting ,[address] [facility], [place], [address] [place] [address] , [place] [facility] 2 15:35:51 History of SARS-CoV- 2 33361132470 5189417 Active 2022 Meggan Littlejohn MD Attn: Accounting ,[address] [facility], [place], [address] , [place] [facility] 16:09:29 Colon cancer screening declined 63443466364 109 Active 2022 Meggan Littlejohn MD Attn: Accounting ,[address] [facility], [place], [address] , [place] [facility] 16:29:14 SARS-CoV- 2 vaccinati on declined 6786955033 Active 2022 Meggan Littlejohn MD Attn: Accounting ,[address] [facility], [place], [address] , [place] [facility] 16:29:15 Ulnar neuropath y of left arm 54235661150 9107 Active 2023 Meggan Littlejohn MD Attn: Accounting ,[address] [facility], [place], [address] , [place] [facility] 15:46:15 Chronic cerebral ischemia 616706999 Active 2023 Meggan Littlejohn MD Attn: Accounting ,[address] [facility], [place], [address] , [place] [facility] 4 16:20:44 Recurrent falls 908466552 Active 2023 Meggan Littlejohn MD Attn: Accounting ,[address] [facility], [place], [address] , [place] [facility] 20:32:26 Osteoarth ritis of joint of right shoulder region 19143943087 9100 Active 2023 Meggan Littlejohn MD Attn: Accounting ,[address] [facility], [place], [address] , [place] [facility] 20:35:46 Osteoarth ritis of left hip joint 35967846731 9108 Active 2023 Meggan Littlejohn MD Attn: Accounting ,[address] [facility], [place], [address] , [place] [facility] 20:39:08 Heartburn 25240286 Active 2023 Meggan Littlejohn MD Attn: Accounting ,[address] [facility], [place], [address] , [place] [facility] 4 20:39:17 Degenerat ion of cervical intervert ebral disc 17148698 Active 2023 Meggan Littlejohn MD Attn: Accounting ,[address] [facility], [place], [address] , [place] [facility] 20:46:07 History of thyroid disorder 538949979 Active 2023 Meggan Littlejohn MD Attn: Accounting ,[address] [facility], [place], [address] , [place] [facility] 4 20:46:11 Folliculi tis 74868226 Active Meggan Littlejohn MD Attn: Accounting ,[address] [facility], [place], [address] , [place] [facility] 10:48:50 Hallux valgus 067264033 Active Meggan Littlejohn MD Attn: Accounting ,[address] [facility], [place], [address] , [place] [facility] 10:48:50 Type 2 diabetes mellitus 59129118 Active Meggan Littlejohn MD Attn: Accounting ,[address] [facility], [place], [address] , [place] [facility] 10:48:50 Obesity 056200091 Active Not Available [facility] 2 09:25:20 Hypertens mayra disorder 86528004 Active Meggan Littlejohn MD Attn: Accounting ,[address] [facility], [place], [address] , [place] [facility] 10:46:45 Hyperlipi demia 06041191 Active Meggan Littlejohn MD Attn: Accounting ,[address] [facility], [place], [address] , [place] [facility] 10:48:51 Congestiv e heart failure 02294703 Active Not Available [facility] 2 09:25:21 Anxiety 59452881 Active Meggan Littlejohn MD Attn: Accounting ,[address] [place], [address] [place] [address] , [place] [facility] 10:48:51 Mammograp hy abnormal 229627708 Active Meggan Littlejohn MD Attn: Accounting ,[address] [place], [address] [place] [address] , [place] [facility] 10:48:50 Constipat ion 52776102 Active Meggan Littlejohn MD Attn: Accounting ,[address] [place], [address] [place] [address] , [place] [facility] 10:48:51 Edema of lower extremity 693504707 Active Meggan Littlejohn MD Attn: Accounting ,[address] [place], [address] [place] [address] , [place] [facility] 2 10:48:50 Administr ation of pneumococ melinda vaccine Active 2015 Meggan Littlejohn MD Attn: Accounting ,[address] [place], [address] [place] [address] , [place] [facility] 2 10:48:50 Pain in bilateral legs 69846483044 676226 Active 2015 Meggan Littlejohn MD Attn: Accounting ,[address] [place], [address] [place] [address] , [place] [facility] 2 10:48:50 Contact dermatiti s 28820917 Active 2016 Meggan Littlejohn MD Attn: Accounting ,[address] [place], [address] [place] [address] , [place] [facility] 10:48:50 Hypothyro idism 33021972 Active 2016 Meggan Littlejohn MD Attn: Accounting ,[address] [place], [address] , [place] [facility] 2 10:48:51 Pulmonary hypertens ion 31660938 Active 2016 Meggan Littlejohn MD Attn: Accounting ,[address] [facility], [place], [address] , [place] [facility] 2 10:46:44 Bilateral arthritis of knees 59375088075 57336 Active 2016 Meggan Littlejohn MD Attn: Accounting ,[address] [facility], [place], [address] , [place] [facility] 2 10:48:50 Otitis media 56943426 Active 2016 Meggan Littlejohn MD Attn: Accounting ,[address] [facility], [place], [address] , [facility] - [facility] 2 10:48:50 Anemia 162768697 Active 2016 Meggan Littlejohn MD Attn: Accounting ,[address] [place], [address] , [facility] - [facility] 2 10:48:50 Screening for malignant neoplasm of breast Active 2016 Meggan Littlejohn MD Attn: Accounting ,[address] [facility], [place], [address] , [facility] - [facility] 2 10:48:51 Administr ation of influenza vaccine Active 2016 Meggan Littlejohn MD Attn: Accounting ,[address] [place], [address] , [facility] - [facility] 2 10:48:51 Flank pain 826666571 Active 2016 Meggan Littlejohn MD Attn: Accounting ,[address] [facility], [place], [address] , [place] [facility] 2 10:48:50 Notes:Some problems listed i n Documents: #[id number], #[id number], #[id number], #[id number], #[id number], #[id number] could not be added to this patient's chart. Please review these documents and add these problems to the patient's chart manually as needed. Problem Notes None recorded. Procedures Surgical History Date Name Laterality Status Provider Name and Address Organization Details Recorded Time 4 Diabetic Foot Exam completed Meggan Littlejohn MD Attn: Accounting,[address] , [place], [address], [place] [facility] 08/01/2023 12:21:21 0 extraction of cataract completed Margaret Hobbs [facility] [place] 02/11/2020 11:53:25 9 procedure completed Margaret Hobbs [facility] 04/09/2019 12:01:52 Imaging Results Imaging Date Name Status LastModified by Organization Details LastModified Time 04/26/2022 XR, humerus completed [facility] [address] [place], [address], 04/26/2022 15:43:16 04/26/2022 US, extremity, nonvascular completed [facility] [address] [place], [address], 04/26/2022 15:44:21 06/21/2022 CT, head, w/o contrast completed [facility] [address] [place], [address], 10/08/2022 16:09:04 06/21/2022 XR, chest completed [facility] [address] [place], [address], 10/08/2022 16:09:03 08/27/2023 XR, shoulder completed [address], [address], 11/25/2023 16:01:14 08/27/2023 XR, elbow completed [address], [address], 11/25/2023 16:01:14 08/27/2023 XR, cervical spine completed [address], [address], 11/25/2023 16:01:14 09/03/2023 MAMMO, screening, bilateral completed [facility] [address] [facility], [place], [address], 11/25/2023 16:01:14 09/06/2023 CT, brain, w/o contrast completed [address], [address], 11/25/2023 16:01:14 09/06/2023 CT, cervical spine, w/o contrast completed [address], [address], 11/25/2023 20:41:46 09/06/2023 CT, thoracic spine, w/o contrast completed [address], [address], 11/25/2023 16:01:14 09/06/2023 XR, ribs, unilateral completed [address], [address], 11/25/2023 16:01:14 09/06/2023 XR, shoulder completed [address], [address], 11/25/2023 16:01:14 09/06/2023 XR, hip, unilateral completed [address], [address], 11/25/2023 16:01:14 09/06/2023 XR, elbow completed [address], [address], 11/25/2023 16:01:14 09/06/2023 XR, humerus completed [address], [address], 11/25/2023 16:01:14 09/06/2023 XR, knee completed [address] [address], [place], [address], 11/25/2023 16:01:14 09/06/2023 US, doppler, venous completed [address], [place], [address], 11/25/2023 16:01:14 09/09/2023 MRI, brain + brain stem, w/o contrast completed [address] [address], [place], [address], 11/25/2023 16:01:13 09/11/2023 US, carotid artery completed [address] [address], [place], [address], 11/25/2023 16:01:13 09/11/2023 trans-thoracic echocardiogram (TTE) (PROC) completed [address] [address], [place], [address], 11/25/2023 16:01:13 09/11/2023 US, duplex, carotid artery completed [address] [address], [place], [address], 11/25/2023 16:01:13 09/11/2023 MRI, brain + brain stem, w/o contrast completed [address], [address], 11/25/2023 16:01:13 09/17/2023 electromyogram + nerve conduction study completed [address], [address], 11/25/2023 16:01:13 12/03/2023 XR, knee completed [facility] [address] [place], [address], 01/02/2024 11:07:22 01/07/2024 trans-thoracic echocardiogram (TTE) (PROC) completed [facility] [address], [place], [address], 01/09/2024 19:42:48 02/19/2024 CT, head, w/o contrast completed [address], [address], 02/21/2024 09:10:21 05/21/2024 XR, chest completed [address], [place], [address], 05/22/2024 12:36:10 Procedure Notes None recorded. Medical Equipment None Reported. Allergies Allergen ID Allergen Name Allergen Category Reaction Reaction Severity Criticality Documentation Date Start Date Code Code System Note Provider Name and Address Organization Details Recorded Time 971366 hydrochlo rothiazid e medicatio n other Not available Not available 05/15/2022 5487 RxNorm Not Available Not Available Not Available 49676 captopril / hydrochlo rothiazid e medicatio n hives Not available Not available 09/27/2015 99113 7 RxNorm Not Available Not Available Not Available Medications Name Sig Start Date Stop Date Status Note LastModified by Organization Details LastModified Time ropinirol e hcl 0.5 mg tabs 09/20 completed Not Available Not Available Not Available ketorolac trometham ine 0.5 % soln 09/20 completed Not Available Not Available Not Available lancets mis 09/20 completed Not Available Not Available Not Available nifedipin e er 60 mg tb24 09/20 completed Not Available Not Available Not Available omeprazol e 20 mg cpdr 09/20 completed Not Available Not Available Not Available prednisol one acetate 1 % susp 09/20 completed Not Available Not Available Not Available carvedilo l 12.5 mg tabs 09/20 completed Not Available Not Available Not Available glimepiri de 1 mg tabs 09/20 completed Not Available Not Available Not Available bumetanid e 1 mg tabs 09/20 completed Not Available Not Available Not Available doxycycli ne hyclate 100 mg tabs 09/20 completed Not Available Not Available Not Available ofloxacin 0.3 % soln 09/20 completed Not Available Not Available Not Available famotidin e 20 mg tabs 09/20 completed Not Available Not Available Not Available ranitidin e hydrochlo ride 150 mg tabs 09/20 completed Not Available Not Available Not Available levothyro xine sodium 75 mcg tabs 09/20 completed Not Available Not Available Not Available sevelamer carbonate 800 mg tabs 09/20 completed Not Available Not Available Not Available losartan 50 mg tablet Take 1 tablet every day by oral route in the morning for 30 days. 12/07 completed Not Available Not Available Not Available nifedipin e ER 30 mg tablet,ex tended release 24 hr 10/09 completed Not Available Not Available Not Available Santyl 250 unit/gram topical ointment APPLY TO THE AFFECTED AREA ONCE DAILY active Not Available Not Available No t Available amoxicill in 500 mg capsule 10/08 completed Not Available Not Available Not Available furosemid e 40 mg tablet Take 1 tablet every day by oral route in the morning for 10 days. 08/14 completed Not Available Not Available Not Available pioglitaz one 15 mg tablet Take 1 tablet every day by oral route in the morning for 30 days. 10/09 completed Not Available Not Available Not Available atorvasta tin 40 mg tablet Take 1 tablet every day by oral route in the evening for 90 days. active Not Available Not Available No t Available terbinafi ne HCl 1 % topical cream APPLY TO THE AFFECTED AND SURROUND ING AREAS OF SKIN BY TOPICAL ROUTE ONCE DAILY 2023 active Not Available Not Available Not Avai lable metformin 500 mg tablet TAKE 1 TABLET BY MOUTH TWICE DAILY 12/07 completed in renal failure Not Available Not Available Not Available acetylcys teine 200 mg/mL (20 %) solution 10/09 completed Not Available Not Available Not Available promethaz ine-DM 6.25 mg-15 mg/5 mL oral syrup Take 5 mL 3 times a day by oral route as needed for 10 days. 09/20 completed Per v/o Guillermo Prince PAC Not Available Not Available Not Available doxycycli ne hyclate 100 mg capsule 01/01 completed Not Available Not Available Not Available carvedilo l 12.5 mg tablet TAKE 1 TABLET BY MOUTH TWICE A DAY active Not Available Not Available No t Available bumetanid e 2 mg tablet 10/09 completed Not Available Not Available Not Available ammonium lactate 12 % lotion 10/09 completed Not Available Not Available Not Available citalopra m 40 mg tablet TAKE 1 TABLET BY MOUTH EVERY NIGHT AT BEDTIME 08/14 completed Not Available Not Available Not Available Stool Softener 100 mg capsule TAKE 1 CAPSULE BY MOUTH TWICE A DAY active Not Available Not Available No t Available azithromy romain 250 mg tablet TAKE 2 TABLETS (500 MG) BY ORAL ROUTE ONCE DAILY FOR 1 DAY THEN 1 TABLET (250 MG) BY ORAL ROUTE ONCE DAILY FOR 4 DAYS 07/09 completed Not Available Not Available Not Available ibuprofen 800 mg tablet Take 1 tablet 3 times a day by oral route for 30 days. 12/07 completed Not Available Not Available Not Available nifedipin e ER 90 mg tablet,ex tended release active Not Available Not Available Not Available fluconazo le 150 mg tablet 05/15 completed Not Available Not Available Not Available ampicilli n 500 mg capsule 10/09 completed Not Available Not Available Not Available hydrocodo ne 5 mg-acetam inophen 325 mg tablet 09/20 completed Not Available Not Available Not Available sevelamer HCl 800 mg tablet TAKE 2 TABLETS BY MOUTH THREE TIMES DAILY 10/08 completed Not Available Not Available Not Available promethaz ine 6.25 mg/5 mL oral syrup 09/20 completed Not Available Not Available Not Available ondansetr on HCl 4 mg tablet active Not Available Not Available No t Available famotidin e 40 mg tablet TAKE 1/2 TABLET BY MOUTH TWICE A DAY 05/15 completed Not Available Not Available Not Available prednison e 20 mg tablet Take 2 tablets twice a day by oral route as directed for 2 days. 12/07 completed Not Available Not Available Not Available metolazon e 5 mg tablet 10/09 completed Not Available Not Available Not Available clobetaso l 0.05 % topical cream 09/20 completed Not Available Not Available Not Available permethri n 5 % topical cream APPLY (THOROUG HLY MASSAGE INTO SKIN FROM HEAD TO SOLES OF FEET) BY TOPICAL ROUTE ONCE LEAVE ON FOR 8-14 HR, THEN REMOVE BY THOROUGH WASHING 05/15 completed Not Available Not Available Not Available clindamyc in HCl 150 mg capsule Take 1 capsule every 6 hours by oral route for 10 days. 12/07 completed Not Available Not Available Not Available potassium chloride ER 10 mEq tablet,ex tended release Take 1 tablet every day by oral route. 10/09 completed Not Available Not Available Not Available nifedipin e ER 30 mg tablet,ex tended release 07/09 completed Not Available Not Available Not Available acetamino phen 300 mg-codein e 30 mg tablet 12/07 completed Not Available Not Available Not Available ciproflox acin 500 mg tablet Take 1 tablet every 12 hours by oral route for 10 days. 10/09 completed Not Available Not Available Not Available sulfameth oxazole 800 mg-trimet hoprim 160 mg tablet 1 tab po bid 10/09 completed Not Available Not Available Not Available omeprazol e 40 mg capsule,d elayed release 10/08 completed Not Available Not Available Not Available tramadol 50 mg tablet 10/09 completed Not Available Not Available Not Available amoxicill in 500 mg tablet Take 1 tablet 3 times a day by oral route for 10 days. 10/09 completed Not Available Not Available Not Available glimepiri de 1 mg tablet TAKE 1 TABLET BY MOUTH IN THE MORNING with BF 10/08 completed Not Available Not Available Not Available levothyro xine 75 mcg tablet TAKE 1 TABLET BY MOUTH DAILY active Not Available Not Available No t Available citalopra m 20 mg tablet Take 1 tablet every day by oral route in the evening for 30 days. 08/14 completed Not Available Not Available Not Available potassium chloride ER 20 mEq tablet,ex tended release(p art/cryst ) TAKE 1 TABLET BY MOUTH EVERY DAY 12/07 completed Not Available Not Available Not Available famotidin e 20 mg tablet TAKE 1 TABLET BY MOUTH TWICE DAILY. 05/15 completed Not Available Not Available Not Available prednisol one acetate 1 % eye drops,marc pension 09/20 completed Not Available Not Available Not Available nifedipin e ER 60 mg tablet,ex tended release 24 hr TAKE 1 TABLET BY MOUTH DAILY 08/01 completed Not Available Not Available Not Available ciproflox acin 0.3 % eye drops 10/09 completed Not Available Not Available Not Available amlodipin e 10 mg tablet 12/07 completed Not Available Not Available Not Available benzonata te 100 mg capsule TAKE 1 CAPSULE BY MOUTH EVERY 6 HOURS NEEDED 10/08 completed Not Available Not Available Not Available triamcino lone acetonide 40 mg/mL suspensio n for injection Take 1 mL by injectio n route for 1 day. 10/09 completed Not Available Not Available Not Available levothyro xine 50 mcg tablet Take 1 tablet every day by oral route in the morning for 30 days. 10/09 completed Not Available Not Available Not Available cephalexi n 500 mg capsule 05/15 completed Not Available Not Available Not Available erythromy romain 5 mg/gram (0.5 %) eye ointment 09/20 completed Not Available Not Available Not Available cyanocoba abram (vit B-12) 1,000 mcg/mL injection solution Inject 1 mL every month by intramus cular route for 1 day. 10/09 completed Not Available Not Available Not Available triamcino lone acetonide 0.1 % topical ointment 05/15 completed Not Available Not Available Not Available ropinirol e 0.5 mg tablet Take 1 tablet every day by oral route at dinner for 30 days. 05/15 completed Ineffect mayra Not Available Not Available Not Available nystatin 100,000 unit/gram topical cream Apply 1 applicat ion twice a day by topical route as directed for 30 days. 05/15 completed Not Available Not Available Not Available ranitidin e 150 mg tablet TAKE 1 TABLET BY MOUTH TWICE A DAY 30 MINUTE(S ) BEFORE MEALS 04/14 completed Not Available Not Available Not Available losartan 25 mg tablet Take 1 tablet every day by oral route in the morning for 30 days. active Not Available Not Available No t Available metoprolo l tartrate 50 mg tablet TAKE 1 TABLET BY MOUTH TWICE DAILY 12/07 completed Not Available Not Available Not Available gabapenti n 300 mg capsule TAKE 1 CAPSULE BY MOUTH EVERY MORNING , TAKE 1 CAPSULE BY MOUTH AT NOON , TAKE 2 CAPSULES EVERY NIGHT AT BEDTIME 08/14 completed Not Available Not Available Not Available omeprazol e 20 mg capsule,d elayed release TAKE 1 CAPSULE BY MOUTH TWICE A DAY 08/01 completed Follow up Not Available Not Available Not Available gentamici n 0.1 % topical cream 10/09 completed Not Available Not Available Not Available bumetanid e 1 mg tablet 05/15 completed Not Available Not Available Not Available hydrochlo rothiazid e 25 mg tablet 08/14 completed Not Available Not Available Not Available mupirocin 2 % topical ointment 05/15 completed Not Available Not Available Not Available furosemid e 20 mg tablet 08/14 completed Not Available Not Available Not Available levofloxa romain 500 mg tablet 12/07 completed Not Available Not Available Not Available levofloxa romain 750 mg tablet Take 1 tablet every day by oral route for 14 days. 12/07 completed Not Available Not Available Not Available albuterol sulfate HFA 90 mcg/actua tion aerosol inhaler INHALE 2 PUFFS BY MOUTH EVERY 4 HOURS NEEDED 10/08 completed Not Available Not Available Not Available Vitamin D2 1,250 mcg (50,000 unit) capsule TAKE 1 CAPSULE BY MOUTH EVERY WEEK 10/08 completed Not Available Not Available Not Available pioglitaz one 30 mg tablet Take 1 tablet every day by oral route for 30 days. 10/09 completed Not Available Not Available Not Available nifedipin e ER 60 mg tablet,ex tended release Take 1 tablet(s ) every day by oral route for 30 days. 08/01 completed Not Available Not Available Not Available ondansetr on 4 mg disintegr ating tablet DISSOLVE 1 TABLET ON THE TONGUE EVERY 8 HOURS NEEDED FOR NAUSEA AND VOMITING active Not Available Not Available No t Available losartan 100 mg tablet TAKE 1 TABLET BY MOUTH DAILY 08/14 completed Not Available Not Available Not Available doxycycli ne hyclate 100 mg tablet Take 1 tablet twice a day by oral route for 10 days. 09/20 completed Not Available Not Available Not Available dicyclomi ne 10 mg capsule Take 1 capsule 4 times a day by oral route for 30 days. 05/15 completed Not Available Not Available Not Available loratadin e 10 mg tablet Take 1 tablet every day by oral route for 30 days. 05/15 completed Not Available Not Available Not Available Tylenol Extra Strength 500 mg tablet Take 2 tablets 3 times a day by oral route for 10 days. 09/20 completed Per iris/donaldo JENSEN Not Available Not Available Not Available hydroxyzi ne pamoate 25 mg capsule Take 1 capsule 3 times a day by oral route as needed for 30 days. 12/07 completed Not Available Not Available Not Available Benadryl 25 mg capsule Take 1 capsule 3 times a day by oral route as needed for 30 days. 12/07 completed Not Available Not Available Not Available Asprin Ec Low Dose 81 mg tablet,de layed release Take 1 tablet every day by oral route. 09/20 completed Not Available Not Available Not Available cyclobenz aprine 5 mg tablet 08/14 completed Not Available Not Available Not Available nitrofura ntoin monohydra te/macroc rystals 100 mg capsule 05/15 completed Not Available Not Available Not Available Atrovent HFA 17 mcg/actua tion aerosol inhaler INHALE 2 PUFFS BY MOUTH EVERY 4 HOURS NEEDED 10/08 completed Not Available Not Available Not Available sildenafi l (pulmonar y hypertens ion) 20 mg tablet 12/07 completed Not Available Not Available Not Available levothyro xine 09/20 completed Not Available Not Available Not Available iron 05/15 completed Not Available Not Available Not Available Diphenhyd ramine 09/20 completed Not Available Not Available Not Available OneTouch Ultra2 Meter kit use to test twice daily ICD-10 E11.9 09/20 completed Not Available Not Available Not Available FeroSul 325 mg (65 mg iron) tablet TAKE 1 TABLET BY MOUTH DAILY WITH A MEAL 10/08 completed Infusion s Not Available Not Available Not Available sevelamer carbonate 800 mg tablet TAKE 3 TABLETS BY MOUTH THREE TIMES A DAY active Not Available Not Available No t Available Dificid 200 mg tablet 05/15 completed Not Available Not Available Not Available OneTouch Verio test strips TEST BLOOD SUGAR THREE TIMES A DAY active Not Available Not Available No t Available OneTouch Delica Lancets 30 gauge 09/20 completed Not Available Not Available Not Available potassium chloride ER 20 mEq tablet,ex tended release TAKE ONE CAPSULE BY MOUTH ONCE DAILY 12/07 completed Not Available Not Available Not Available Trulicity 1.5 mg/0.5 mL subcutane ous pen injector INJECT 1.5MG SUBCUTAN EOUSLY EVERY WEEK 2024 active Appt 5 Not Available Not Available Not Available OneTouch Verio Flex Meter TEST BLOOD SUGAR THREE TIMES A DAY active Not Available Not Available No t Available OneTouch Delica Plus Lancet 33 gauge TEST BLOOD SUGAR THREE TIMES A DAY active Not Available Not Available No t Available Vitals Date Recorded Body height Body mass index (BMI) Body weight Heart rate Oxygen saturation Oxygen saturation in Arterial blood by Pulse oximetry Respiratory rate Systolic blood pressure Diastolic blood pressure Provider Name and Address Organization Details Last Updated DateTime 2 170.18 cm 35.2 kg/m2 526055. 28 g 82 /min 98 % 98 % 16 /min 150 mm[Hg] 80 mm[Hg] Sheryl Nascimento MA [facility] 2 10:44:31 Date Recorded Body height Body mass index (BMI) Body weight Respiratory rate Heart rate Oxygen saturation Oxygen saturation in Arterial blood by Pulse oximetry Systolic blood pressure Diastolic blood pressure Provider Name and Address Organization Details Last Updated DateTime 3 170.18 cm 32.4 kg/m2 34720.0 5 g 16 /min 80 /min 99 % 99 % 136 mm[Hg] 70 mm[Hg] Sheryl Nascimento [place] [facility] 3 16:03:20 Date Recorded Body height Body mass index (BMI) Body weight Body temperature Oxygen saturation Oxygen saturation in Arterial blood by Pulse oximetry Heart rate Respiratory rate Systolic blood pressure Diastolic blood pressure Provider Name and Address Organization Details Last Updated DateTime 4 170.18 cm 30.1 kg/m2 07100.7 4 g 97.6 [degF] 100 % 100 % 80 /min 18 /min 156 mm[Hg] 70 mm[Hg] Sheryl Nascimento MA [facility] 4 11:32:39 Date Recorded Body height Body mass index (BMI) Body weight Oxygen saturation Oxygen saturation in Arterial blood by Pulse oximetry Heart rate Body temperature Systolic blood pressure Diastolic blood pressure Provider Name and Address Organization Details Last Updated DateTime 4 170.18 cm 31.5 kg/m2 41643.0 7 g 98 % 98 % 72 /min 97.8 [degF] 114 mm[Hg] 50 mm[Hg] Sheryl Nascimento [place] [facility] 4 15:38:26 Date Recorded Body height Body mass index (BMI) Body weight Heart rate Respiratory rate Systolic blood pressure Diastolic blood pressure Provider Name and Address Organization Details Last Updated DateTime 4 170.18 cm 32.9 kg/m2 04405.6 8 g 74 /min 16 /min 134 mm[Hg] 70 mm[Hg] Sheryl Nascimento [place] [facility] 4 10:47:44 Social History Question Answer Notes LastModified by Organizat ion Details LastModified Time Tobacco Smoking Status Former Smoker 1989 Meggan Littlejohn MD Attn: [facility] [place], [address], [facility] 05/15/2022 11:07:32 Do You Have An Advance Directive? Yes Information n ot available 09/20/2020 What Is Your Level Of Alcohol Consumption? None Information not available 09/20/2020 Are You Blind Or Do You Have Difficulty Seeing? Yes Information n ot available 05/15/2022 What Is Your Level Of Caffeine Consumption? None Information not available 09/20/2020 In The 14 Days Before Symptom Onset, Have You Had Close Contact With A Laboratory-confirm ed COVID-19 While That Case Was Ill? No Information n ot available 09/20/2020 In The 14 Days Before Symptom Onset, Have You Had Close Contact With A Person Who Is Under Investigation For COVID-19 While That Person Was Ill? No Information not available 09/20/2020 Have You Been To An Area Known To Be High Risk For COVID-19? No Information not available 09/20/2020 Are You Currently Employed? No Information not available 09/20/2020 Are You Deaf Or Do You Have Serious Difficulty Hearing? No Information not available 09/20/2020 What Type Of Diet Are You Following? REGULAR Information n ot available 09/20/2020 Are There Any Guns Present In Your Home? No Information not available 09/20/2020 What Was The Date Of Your Most Recent Tobacco Screening? 01/02/2024 Information not available 01/02/2024 What Is Your Current Pack Years? 20-29packyea rs Information not available 05/15/2022 What Is Your Relationship Status? Single Information not available 09/20/2020 Do You Use Your Seat Belt Or Car Seat Routinely? Yes Information not available 09/20/2020 Are You Sexually Active? No Information not available 09/20/2020 Do You Have Smoke And Carbon Monoxide Detectors In Your Home? Yes Information not available 09/20/2020 At What Age Did You Start Smoking Tobacco? 19 Information not available 05/15/2022 Are You Passively Exposed To Smoke? No Information no t available 09/20/2020 How Much Tobacco Do You Smoke? No Information not available 09/27/2015 Do You Feel Stressed (tense, Restless, Nervous, Or Anxious, Or Unable To Sleep At Night)? [id number] Information not available 09/20/2020 Do You Use Any Illicit Or Recreational Drugs? No Information not available 09/20/2020 Do You Use Sunscreen Routinely? No Information not available 09/20/2020 Has Tobacco Cessation Counseling Been Provided? Yes Information not available 05/15/2022 On What Date Was Tobacco Cessation Counseling Provided? 05/15/2022 Information not available 05/15/2022 Do You Or Have You Ever Used Any Other Forms Of Tobacco Or Nicotine? No Information not available 05/15/2022 Sex: Female Functional Status Question Answer Note LastModified by Organizat ion Details LastModified Time Are you able to care for yourself? Yes Information not available 09/20/2020 What is your exercise level? Occasional Information not available 09/20/2020 Mental Status None recorded. Family History Relationship Description Onset Age of this Age Resolved Age Notes LastModified by Organization Details LastModified Time Mother Malignant tumor of breast [email or web address] Not available 2015 12:42:56 Father Diabetes mellitus [email or web address] Not available 2015 12:42:56 Father Heart disease [email or web address] Not available 2015 12:42:56 Father Hypercholest erolemia mnelsonma Not available 2015 12:42:56 Father Hypertensive disorder mnelsonma Not available 2015 12:42:56 Brother Diabetes mellitus mnelsonma Not available 2015 12:42:56 Brother Hypercholest erolemia mnelsonma Not available 2015 12:42:56 Brother Hypertensive disorder mnelsonma Not available 2015 12:42:56 Brother Malignant tumor of lung mnelsonma Not available 2015 12:42:56 Medical History Condition Response Anxiety Disorder Y Diabetes Y High Blood Pressure Y High Cholesterol Y Hepatitis Y Depression Y Blood Clots Y Heart Failure Y Gynecological HistoryNo gynecological history recorded. Obstetrics History GPAL:G 0 P 0 0 0 0 Immunizations Vaccine Type Date Status Note Provider Nam e and Address Organization Details Recorded Time influenza, unspecified formulation 2 completed Meggan Littlejohn MD Attn: [facility] [place], [address], [facility] 05/15/2022 10:46:19 Influenza, split virus, quadrivalent, PF 6 completed Meggan Littlejohn MD Attn: [facility] [place], [address], [facility] 05/15/2022 10:46:19 pneumococcal polysaccharide PPV23 6 completed Not Available [facility] 06/27/2019 02:39:52 influenza, unspecified formulation 3 completed Meggna Littlejohn MD Attn: [facility] [place], [address], [facility] 08/01/2023 11:45:05 Influenza, split virus, quadrivalent, preservative 7 completed Not Available [facility] 06/27/2019 02:34:00 Influenza, split virus, quadrivalent, preservative 9 completed Not Available [facility] 06/27/2019 02:38:43 Influenza, split virus, quadrivalent, preservative 0 completed Margaret Hobbs [place], [place] [facility] 04/14/2020 10:36:24 Influenza, split virus, quadrivalent, preservative 1 completed Maggy Brooks [place], [place] [facility] 05/25/2021 10:48:19 Pneumococcal conjugate PCV20, polysaccharide GPR652 conjugate, adjuvant, PF 3 completed Sheryl Nasc[place] [facility] 10/09/2022 10:45:27 Tdap 4 completed Sheryl Nasc[place], [place] [facility] 08/01/2023 16:57:15 Past Encounters Encounter ID Performer Location Encounter Start Date Encounter Closed Date Diagnosis/Indication Diagnosis SNOMED-CT Code Diagnosis ICD10 Code Diagnosis Note [id number] [facility] ([facility] [address] [place] [address] [id number] 0 09/27/2015 12:10:49 09/27/2015 14:34:15 Folliculitis 80567408 L73.9 Hallux valgus 644162061 M20.10 Type 2 meme betes mellitus 10428290 E11.9 Obesity 099380123 E66.9 Hypertensive disorder 38 791083 I10 Hyperlipidemia 92753801 E78.5 [id number] [facility] ([facility]) [address] [place] [address] [id number] 0 10/26/2015 10:12:37 10/26/2015 11:28:01 Normal grief reaction 982976943 F43.20 Hyperlipidemia 56182282 E78.5 Hypertensive disorder 38 072837 I10 Obesity 197290724 E66.9 Type 2 meme betes mellitus 98873173 E11.9 [id number] [facility] ([facility]) [address] [place] [address] 95949-326 0 12/21/2015 10:37:47 12/21/2015 11:20:29 Congestive heart failure 91220397 I50.9 Hyperlipidemia 64075450 E78.5 Hypertensive disorder 38 320572 I10 Obesity 113117045 E66.9 Type 2 emme betes mellitus 35015846 E11.9 Screening for malignant neoplasm of breast 301460041 Z12.31 Anxiety 33983375 F41.9 [id number] [facility] ([facility]) [address] [place] [address] [id number] 0 02/22/2016 09:29:57 02/22/2016 10:53:31 Folliculitis 45292089 L73.9 Congestive heart failure 39652169 I50.9 Obesity 289404163 E66.9 Type 2 meme betes mellitus 24967605 E11.9 Constipation 21237934 K5 9.00 [id number] [facility] ([facility]) [address] [place] [address] [phone] 0 03/28/2016 12:29:31 03/28/2016 13:28:39 Folliculitis 94236026 L73.9 Administra tion of pneumococcal vaccine 91317744 Z23 [id number] [facility] ([facility]) [address] [place] [address] 56378-080 0 07/17/2016 14:07:59 07/17/2016 14:54:53 Edema of lower extremity 020131549 R60.0 Contact dermatitis 29008 004 L25.9 Type 2 meme betes mellitus 53090308 E11.9 Anxiety 83379565 F41.9 Hyperlipidemia 20903870 E78.5 Hypertensive disorder 38 907492 I10 Obesity 970641160 E66.9 Congestive heart failure 22963752 I50.9 [id number] [facility] ([facility]) [address] [place] [address] [id number] 0 10/09/2016 10:14:57 10/10/2016 09:26:01 Congestive heart failure 31761295 I50.9 Type 2 meme betes mellitus 10453215 E11.9 Obesity 395426748 E66.9 Hyperlipidemia 32013766 E78.5 Hypothyroidism 36735274 E03.9 [id number] [facility] ([facility]) [address] [place] [address] 56556-621 0 11/01/2016 10:54:39 11/01/2016 11:38:04 Congestive heart failure 90322599 I50.9 Type 2 meme betes mellitus 43635349 E11.9 Obesity 682681588 E66.9 Hypertensive disorder 38 325913 I10 Hyperlipidemia 16726482 E78.5 Anxiety 52719387 F41.9 Edema of l ower extremity 014622733 R60.0 Hypothyroidism 04001426 E03.9 [id number] [facility] ([facility]) [address] [place] [address] 80631-635 0 12/07/2016 09:20:51 12/07/2016 16:52:10 Pulmonary hypertension 20771538 I27.2 Hypothyroidism 85197171 E03.9 Congestive heart failure 72400364 I50.9 Type 2 meme betes mellitus 36224668 E11.9 Obesity 939741571 E66.9 Hypertensive disorder 38 980045 I10 Hyperlipidemia 64003193 E78.5 Bilateral arthritis of knees 6472829115 224402 M13.861 Otitis media 37618262 H6 6.92 [id number] [facility]) [address] [place] [address] 78667-640 0 01/03/2017 11:31:13 01/03/2017 12:22:25 Type 2 diabetes mellitus 82155595 E11.9 Congestive heart failure 59763235 I50.9 Hypertensive disorder 38 434307 I10 Obesity 650884710 E66.9 Hypothyroidism 70201807 E03.9 Edema of l ower extremity 700136586 R60.0 Anxiety 86617374 F41.9 Hyperlipidemia 70058067 E78.5 Constipation 16009941 K5 9.00 Folliculitis 76999849 L7 3.9 Anemia 340529434 D64.9 Screening for malignant neoplasm of breast 037094946 Z12.31 [id number] [facility] ([facility]) [address] [place] [address] [phone] 0 01/31/2017 10:49:52 01/31/2017 11:48:03 Hypothyroidism 37807756 E03.9 Anemia 910969190 D64.9 Pulmonary hypertension 87123092 I27.2 Anxiety 28527634 F41.9 Hyperlipidemia 67974089 E78.5 Hypertensive disorder 38 035551 I10 Congestive heart failure 82517067 I50.9 Type 2 meme betes mellitus 76663318 E11.9 [id number] [facility] ([facility]) [address] [place] [address] 92927-638 0 02/28/2017 11:16:22 03/04/2017 11:39:30 Congestive heart failure 25215041 I50.9 Type 2 meme betes mellitus 85969618 E11.9 Obesity 292433993 E66.9 Hypertensive disorder 38 012928 I10 Hyperlipidemia 81554140 E78.5 Anxiety 12678741 F41.9 Edema of l ower extremity 278364958 R60.0 Administra tion of influenza vaccine 07838644 Z23 [id number] [facility] ([facility]) [address] [place] [address] 90108-780 0 03/06/2017 10:03:08 03/06/2017 11:02:58 Flank pain 066767214 R10.9 Pulmonary hypertension 30177482 I27.2 Hypothyroidism 71937246 E03.9 Hyperlipidemia 04012520 E78.5 Obesity 169802085 E66.9 Congestive heart failure 57506537 I50.9 Type 2 meme betes mellitus 44249408 E11.9 [id number] [facility] ([facility]) [address] [place] [address] [id number] 0 05/07/2017 09:17:46 05/07/2017 10:15:11 Acute bronchitis 19446240 J20.9 Type 2 meme betes mellitus 24346302 E11.42 Congestive heart failure 83221043 I50.9 Obesity 035334729 E66.9 Sleep apnea 02766758 G47 .30 Pulmonary hypertension 68219458 I27.20 Hypothyroidism 45836674 E03.9 Hyperlipidemia 84953885 E78.5 Hypertensive disorder 38 441949 I10 [id number] [facility] ([facility]) [address] [place] [address] 25692-714 0 05/29/2017 11:37:07 05/29/2017 12:37:36 Pre-surgery testing 446851651 Z01.89 Sleep apnea 31791518 G47 .30 Pulmonary hypertension 06394073 I27.20 Hypothyroidism 85564887 E03.9 Hyperlipidemia 46601865 E78.5 Congestive heart failure 42774914 I50.9 Type 2 meme betes mellitus 67547948 E11.42 [id number] [facility] ([facility]) [address] [place] [address] 09218-753 0 07/09/2017 11:59:20 07/09/2017 12:54:52 Upper respiratory infection 67782543 J06.9 Type 2 meme betes mellitus 10878836 E11.42 [id number] [facility] ([facility]) [address] [place] [address] 20614-401 0 08/14/2017 09:42:41 08/14/2017 10:32:48 Gastroesophageal reflux disease 884302888 K21.9 Sleep apnea 67248722 G47 .30 [id number] [facility] ([facility]) [address] [place] [address] [id number] 0 09/17/2017 11:02:56 09/17/2017 14:34:21 Serum vitamin B12 below reference range 562456258 R79.89 Acute sinusitis 88836807 J01.90 Type 2 meme betes mellitus 77076591 E11.42 Acute bronchitis 2241140 2 J20.9 Sleep apnea 62561560 G47 .30 Pulmonary hypertension 28689723 I27.20 Hypothyroidism 32637095 E03.9 Hyperlipidemia 04813328 E78.5 Obesity 089464177 E66.9 [id number] [facility] ([facility]) [address] [place] [address] [id number] 0 12/03/2017 10:47:40 12/04/2017 23:44:27 Acute urinary tract infection 311482711 N39.0 Chronic renal failure 90 822274 N18.9 Congestive heart failure 18730337 I50.9 Type 2 meme betes mellitus 82602341 E11.42 Obesity 252181800 E66.9 Hypertensive disorder 38 769454 I10 Hyperlipidemia 32391186 E78.5 Hypothyroidism 03029922 E03.9 Pulmonary hypertension 50012582 I27.20 Anemia 534951167 D64.9 [id number] [facility] ([facility]) [address] [place] [address] [id number] 0 12/03/2017 11:00:35 12/03/2017 12:02:12 Anemia 349459239 D64.9 Type 2 meme betes mellitus 56422247 E11.42 Acute urin katelynn tract infection 107096846 N39.0 [id number] [facility] ([facility]) [address] [place] [address] 77324-093 0 04/08/2018 10:46:30 04/08/2018 12:59:56 Tuberculosis screening 422461445 Z11.1 Hepatitis B screening required 884033486 Z78.9 Pain of ri ght shoulder joint 1594594209 3679669 M25.511 Anemia 096550780 D64.9 Type 2 meme betes mellitus 65030997 E11.42 Serum ben min B12 below reference range 798400548 R79.89 Gastroesop hageal reflux disease 202989007 K21.9 Kidney stone 49712614 N2 0.0 Sleep apnea 78555201 G47 .30 Pulmonary hypertension 59211574 I27.20 Hypothyroidism 60354683 E03.9 Hyperlipidemia 21867473 E78.5 Obesity 829467679 E66.9 Congestive heart failure 51753329 I50.9 Hypertensive disorder 38 444350 I10 [id number] [facility] ([facility]) [address] [place] [address] 56836-015 0 10/09/2018 10:28:45 10/09/2018 11:15:53 Gastroesophageal reflux disease 156162800 K21.9 Sleep apnea 01314419 G47 .30 Anemia 012425085 D64.9 Pulmonary hypertension 66442719 I27.20 Congestive heart failure 93797906 I50.9 Type 2 meme betes mellitus 23108635 E11.42 Chronic renal failure 90 592159 N18.6 Serum ben min B12 below reference range 014101739 R79.89 Bilateral arthritis of knees 1222127216 393018 M13.861 Hypothyroidism 03793665 E03.9 Hyperlipidemia 83052877 E78.5 Constipation 96183935 K5 9.00 Hypertensive disorder 38 550421 I10 Obesity 762708220 E66.9 [id number] [facility] ([facility]) [address] [place] [address] 89773-268 0 01/27/2019 10:44:56 01/28/2019 09:13:39 Screening for malignant neoplasm of breast 616771544 Z12.31 Chronic renal failure 90 548350 N18.6 Gastroesop hageal reflux disease 244300763 K21.9 Sleep apnea 08538883 G47 .30 Pulmonary hypertension 27058679 I27.20 Hypothyroidism 74143761 E03.9 Hyperlipidemia 61734252 E78.5 Type 2 meme betes mellitus 59383367 E11.42 Congestive heart failure 53945963 I50.9 Hypertensive disorder 38 103357 I10 Obesity 181376928 E66.9 [id number] [facility] ([facility]) [address] [place] [address] 54344-740 0 04/09/2019 11:26:39 04/09/2019 12:53:47 Chronic kidney disease 078497208 N18.9 Dialysis- M,W,F Tuberculos is screening 423271928 Z11.1 Screening for malignant neoplasm of breast 571508988 Z12.31 Administra tion of influenza vaccine 47143860 Z23 Aneurysm o f artery of upper extremity 55542572 I72.1 Surgical interventi on and removal on 03/31/19. Sutures intact. Congestive heart failure 37267589 I50.9 Serum ben min B12 below reference range 693702047 R79.89 Gastroesop hageal reflux disease 894898308 K21.9 Sleep apnea 29519217 G47 .30 Pulmonary hypertension 42749629 I27.20 Bilateral arthritis of knees 5697946595 150989 M13.861 Hypothyroidism 29043354 E03.9 Hypertensive disorder 38 316642 I10 Type 2 meme betes mellitus 53126683 E11.42 [id number] [facility] ([facility]) [address] [place] [address] 65176-656 0 04/30/2019 11:08:38 04/30/2019 12:00:44 Congestive heart failure 54064685 I50.9 Gastroesop hageal reflux disease 137299907 K21.9 Anemia 310699761 D64.9 Bilateral arthritis of knees 3608124494 870234 M13.861 Chronic renal failure 90 341540 N18.6 Hyperlipidemia 39241956 E78.5 Hypothyroidism 97466305 E03.9 Obesity 869248781 E66.9 Pulmonary hypertension 26262254 I27.20 Serum ben min B12 below reference range 751350394 R79.89 Sleep apnea 86283060 G47 .30 Type 2 meme betes mellitus 36648115 E11.42 [id number] [facility] ([facility]) [address] [place] [address] 87004-373 0 06/22/2019 13:51:13 06/23/2019 12:44:00 Type 2 diabetes mellitus 41248521 E11.21 Advised to stop aspirin, for at least 5 days prior to eye operation. , DR. Bart. Jhon Brooks office informed. No medical contraindi cation for operation. # . End stage renal failure on dialysis 606540812 Z99.2 On chronic renal dialysis. Bilateral cataracts 9572 2003 H26.9 Ok for eye operation, but has to stop aspirin 5 days prior to surgery. [id number] [facility] ([facility]) [address] [place] [address] 71555-572 0 02/11/2020 08:44:37 02/11/2020 13:28:18 Type 2 diabetes mellitus 64553488 E11.42 Pulmonary hypertension 61572958 I27.20 Anxiety 37304019 F41.9 Bilateral arthritis of knees 3045576654 590123 M13.861 Chronic ki dney disease 929714111 N18.9 Dialysis- M,W,F Congestive heart failure 35412280 I50.9 Edema of l ower extremity 198318362 R60.0 Essential hypertension 88871432 I10 Gastroesop hageal reflux disease 007621353 K21.9 Hyperlipidemia 72419726 E78.5 Hypothyroidism 45885771 E03.9 Obesity 436446040 E66.9 Pain in bi lateral legs 5730528187 7439598 M79.605 Serum ben min B12 below reference range 706785481 R79.89 Sleep apnea 70674644 G47 .30 [id number] [facility] ([facility]) [address] [place] [address] 16819-849 0 04/14/2020 08:09:07 04/14/2020 10:42:17 Administration of influenza vaccine 23480902 Z23 Type 2 meme betes mellitus 70002486 E11.42 Screening for malignant neoplasm of breast 154232130 Z12.31 Gastroesop hageal reflux disease 629301963 K21.9 Anxiety 01723056 F41.9 Essential hypertension 81583114 I10 Hyperlipidemia 31162992 E78.5 Hypothyroidism 49629500 E03.9 Pulmonary hypertension 24532159 I27.20 Sleep apnea 30433905 G47 .30 [id number] [facility] ([facility]) [address] [place] [address] 53948-061 0 06/14/2020 09:31:52 06/14/2020 12:07:27 Essential hypertension 01363647 I10 Gastroesop hageal reflux disease 689444386 K21.9 Hyperlipidemia 79535267 E78.5 Hypothyroidism 60728127 E03.9 Pulmonary hypertension 78952687 I27.20 Serum ben min B12 below reference range 089190785 R79.89 Sleep apnea 27290965 G47 .30 Type 2 meme betes mellitus 13815034 E11.42 Anemia 396570454 D64.9 Anxiety 08778843 F41.9 Chronic ki dney disease 360255305 N18.9 Dialysis- M,W,F Congestive heart failure 86403160 I50.9 Constipation 53330623 K5 9.00 Hallux valgus 633710601 M20.10 Hypertensive disorder 38 225196 I10 [id number] [facility] ([facility]) [address] [place] [address] 17403-962 0 06/28/2020 16:03:02 06/29/2020 11:29:24 Screening mammography 20011996 Z12.31 Tuberculos is screening 422502300 Z11.1 Pulmonary hypertension 77211044 I27.20 [id number] [facility] ([facility]) [address] [place] [address] 81251-509 0 07/14/2020 08:57:30 07/21/2020 03:47:41 [id number] [facility] ([facility]) [address] [place] [address] 80135-907 0 08/09/2020 08:15:04 08/09/2020 10:30:02 Anxiety 98705016 F41.9 Bilateral arthritis of knees 0014848182 855471 M13.861 Chronic renal failure 90 874800 N18.6 Congestive heart failure 61265181 I50.9 Essential hypertension 87722999 I10 Gastroesop hageal reflux disease 828786209 K21.9 Hyperlipidemia 83912300 E78.5 Hypothyroidism 50487728 E03.9 Obesity 447159307 E66.9 Pulmonary hypertension 23717772 I27.20 Serum ben min B12 below reference range 050652345 R79.89 Sleep apnea 90534054 G47 .30 Type 2 meme betes mellitus 46261834 E11.42 Anemia 231099917 D64.9 Vitamin D below reference range 467083731 E55.9 [id number] [facility] ([facility]) [address] [place] [address] 09007-739 0 09/20/2020 08:40:59 09/22/2020 11:17:11 Anemia 680608503 D64.9 Congestive heart failure 47953542 I50.9 Vitamin D below reference range 040695321 E55.9 Essential hypertension 03780665 I10 Gastroesop hageal reflux disease 713790143 K21.9 Hyperlipidemia 78139819 E78.5 Hypertensive disorder 38 993489 I10 Hypothyroidism 73639185 E03.9 Pulmonary hypertension 47303484 I27.20 Serum ben min B12 below reference range 410685245 R79.89 Sleep apnea 75320726 G47 .30 Type 2 meme betes mellitus 05011941 E11.42 Anxiety 01058607 F41.9 Bilateral arthritis of knees 2434303745 615614 M13.861 Chronic renal failure 90 356226 N18.6 Restless legs 26428139 G 25.81 [id number] NESHA Nina (Adult Med) [address] [place] [address] [phone] 05/25/2021 09:42:59 05/25/2021 13:14:36 Administration of influenza vaccine 45030357 Z23 [id number] WILLI West (Adult Med) [address] [place] [address] [phone] 0 07/20/2021 11:59:05 07/21/2021 12:31:34 Congestive heart failure 83166219 I50.9 Vitamin D below reference range 956600521 E55.9 Essential hypertension 03349442 I10 Gastroesop hageal reflux disease 016699109 K21.9 Hallux valgus 957192043 M20.10 Hyperlipidemia 76205088 E78.5 Hypothyroidism 43246871 E03.9 Pulmonary hypertension 63072822 I27.20 Restless legs 49583197 G 25.81 Serum ben min B12 below reference range 358449435 R79.89 Sleep apnea 64783749 G47 .30 Type 2 meme betes mellitus 52124575 E11.42 E11.621 Candidiasis 17196318 B37 .9 Irritable bowel syndrome 82854264 K58.9 Anemia 065853249 D64.9 Anxiety 45724233 F41.9 Bilateral arthritis of knees 0544711896 860929 M13.861 Chronic ki dney disease 094554456 N18.9 Dialysis- M,W,F [id number] MD Cisco Terrell (Adult Med) [address] [place] [address] [phone] 0 05/15/2022 10:25:04 05/16/2022 10:26:24 Screening for malignant neoplasm of breast 747233304 Z12.39 Administra tion of diphtheria, pertussis, and tetanus vaccine 902546313 Z23 General ex amination of patient 066932538 Z00.01 Ulcer of toe 122840868 L 97.509 Type 2 meme betes mellitus 93185977 E11.42 E11.621 Screening for malignant neoplasm of colon 146067820 Z12.11 Colonoscopy declined 942 0472804 26024 Z53.20 Body mass index 30+ - obesity 407482848 Z68.35 SARS-CoV-2 mRNA vaccine declined 7496970869 Z28.21 Legal blindness 07107520 H54.8 Cough 89268750 R05.9 Onychomyco sis of toenails 875520531 B35.1 Tobacco de pendence in remission 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.201 Requires a tetanus booster 744298193 Z28.39 Referral t o family health nurse practitioner declined by subject 162646166 Z53.20 [id number] MD Cisco Terrell (Adult Med) [address] [place] [address] [phone] 10/08/2022 15:47:47 10/11/2022 10:58:01 Medication monitoring 814182437 Z51.81 Follow-up visit 27990170 9 Z09 History of SARS-CoV-2 29 73819601 68183962 Z86.16 06/2022 Physical deconditioning 7976413502 9102 R68.89 SARS-CoV-2 vaccination declined 5459994118 Z28.21 Colon canc er screening declined 1209988434 9109 Z53.20 Administra tion of pneumococcal vaccine 61922167 Z23 Type 2 meme betes mellitus 60964756 E11.42 E11.621 On TrulicityR estart Lipitor Legal blindness 07117962 H54.8 Medication review done by doctor 350739948 Z76.89 [id number] MD Cisco Terrell (Adult Med) [address] [place] [address] [phone] 0 08/01/2023 11:12:55 08/05/2023 16:20:26 Type 2 diabetes mellitus 20062403 E11.42 E11.621 Labs OV 10/08/2022On TrulicityR estart Lipitor Medication monitoring 39 3985974 Z51.81 Colon canc er screening declined 7342170332 9109 Z53.20 Medication review done by doctor 548361050 Z76.89 Screening mammography 24 405364 Z12.31 Colonoscopy declined 004 4208051 54597 Z53.20 Neuropathy 691738418 G62 .9 Chronic neck pain 765084 7581 107 M54.2 Pain of ri ght shoulder joint 0765230840 1169915 M25.511 Difficulty walking 59877 2003 R26.2 Administra tion of diphtheria, pertussis, and tetanus vaccine 673334345 Z23 Tinea pedis 3444599 B35. 3 [id number] MD Cisco Terrell (Adult Med) [address] [place] [address] [phone] 0 11/25/2023 15:15:42 11/28/2023 15:15:54 Body mass index 30+ - obesity 595156705 Z68.31 Obesity 860474368 E66.8 Type 2 meme betes mellitus 27633258 E11.42 E11.621 Stable, HBA1C 6.8% on 08/01/2023 OV 08/01/2023L abs OV 10/08/2022On TrulicityR estart Lipitor Chronic neck pain 314750 1713 107 M54.2 Difficulty walking 88734 2003 R26.2 She needs a K5 PMD to meet her ADLs Ulnar neur opathy of left arm 6084563971 99896 G56.22 Her options including a referral to the orthopedic surgeon were discussed, she would like to try a splint. Pain of le ft knee joint 9209455803 42034 M25.562 The xray done on 09/06/2023 which preceded her most recent fall was suggestive of OA of the left knee. Degenerati on of cervical intervertebral disc 63521929 M50.30 History of thyroid disorder 437920710 Z86.39 Previously on Thyroid replacemen tTSH 5.05 on 4R echeck labs and consider if there is a need to restart Thyroid replacemen t Recurrent falls 35126936 2 R29.6 Chronic ce rebral ischemia 830105499 I67.82 Discussed in detail, noted on the 09/06/2023 CT scan of the brain and the 09/11/2023 MRI of the brain.Gardner tid US < 50 % 09/11/2023TT E 09/11/2023Id eally she should be on Atorvastat in, this was filled on 11/19/2023 as per her EHR, salvador carreon, she cannot confirm this. Heartburn 47209137 R12 Osteoarthr itis of joint of right shoulder region 6284494672 99823 M19.011 Osteoarthr itis of left hip joint 2644203039 77033 M16.12 [id number] Meggan Littlejohn MD [facility] (Adult Med) [address] [place] [address] [phone] 0 01/02/2024 10:32:47 01/07/2024 11:21:39 Chronic cerebral ischemia 284966885 I67.82 Discussed again in great detail as she wanted to know wheat she needed to do to prevent another event. OV 11/25/2023 iscussed in detail, noted on the 09/06/2023 CT scan of the brain and the 09/11/2023 MRI of the brain.Gardner tid US < 50 % 09/11/2023TT E 09/11/2023Id eally she should be on Atorvastat in, this was filled on 11/19/2023 as per her EHR, salvador velma, she cannot confirm this. Type 2 meme betes mellitus 79204357 E11.42 E11.621 Stable, HBA1C 6.8% on 08/01/2023 OV 08/01/2023L abs OV 10/08/2022On TrulicityR estart Lipitor Heartburn 69570399 R12 Lifestyle changes were discussedG I Osteoarthr itis of knee 958894454 M17.9 Diabetes mellitus 130713 09 E11.9 Health Concerns Section Related Observation LastModified by Organization Detai ls LastModified Time None Recorded Concern Status LastModified by Organization Details LastModified Time None Recorded Advance Directives Directive Y: Payers Encounter Date Sequence Insurance Name Policy Number Policy Olivares Covered Member ID Olivares Member ID Guarantor Name 05/15/2022 1 [facility] (MEDICARE REPLACEMENT/AD VANTAGE - HMO) [id number] Zuleyka Tinoco [id number] Zuleyka Tinoco 05/15/2022 2 [facility] ON OR AFTER 12/08/20 (MEDICAID REPLACEMENT - HMO) Zuleyka Tinoco [id number] Zuleyka Tinoco 10/08/2022 1 [facility] (MEDICARE REPLACEMENT/AD VANTAGE - HMO) [id number] Zuleyka Tinoco [id number] Zuleyka Tinoco 10/08/2022 2 [facility] ON OR AFTER 12/08/20 (MEDICAID REPLACEMENT - HMO) Zuleyka Tinoco [id number] Zuleyka Tinoco 08/01/2023 1 [facility] (MEDICARE REPLACEMENT/AD VANTAGE - HMO) [id number] Zuleyka Tinoco [id number] Zuleyka Tinoco 08/01/2023 2 [facility] ON OR AFTER 12/08/20 (MEDICAID REPLACEMENT - HMO) Zuleyka Tinoco [id number] Zuleyka Tinoco 11/25/2023 1 [facility] (MEDICARE REPLACEMENT/AD VANTAGE - HMO) [id number] Zuleyka Tinoco [id number] Zuleyka Tinoco 11/25/2023 2 [facility] ON OR AFTER 12/08/20 (MEDICAID REPLACEMENT - HMO) Zuleyka Tinoco [id number] Zuleyka Tinoco 01/02/2024 1 [facility] (MEDICARE REPLACEMENT/AD VANTAGE - HMO) [id number] Zuleyka Tinoco [id number] Zuleyka Tinoco 01/02/2024 2 [facility] ON OR AFTER 12/08/20 (MEDICAID REPLACEMENT - HMO) Zuleyka Tinoco [id number] Zuleyka Tinoco Notes Date Note Type Note Provider Name and Address Organization Details Recorded Time 2 text/html Here with a ladyThe history is from the chart and the patient. Just a check up I am blind Did you say you had a spot on your feet? 67 y/o WF who presents to me as a new patient, she was previously seeing a different provider in this clinic. PMHX. Blindness, DM, HTN, Tobacco in remission, Obesity, ESRF on HD, CHF, Hypothyroidism and Restless legs syndrome and Hyperlipidemia. Podiatry [facility]ph[facility] CheemaRetina specialist Kelli. She thinks that she developed a blister from her shoe under her right hallux and possibly traumatized it recently. She is also receiving treatment with antibiotics, an inhaler and a cough medicine for a cold from one of her other providers. Meggan Littlejohn MD Attn: Accounting,[address] [place], [address], [facility] 05/15/2022 15:36:30 3 text/html Diabetes F/UReported bypatient.Associated Symptoms:weight loss (18 lbs) Here with a lady Just a regular check up and to make sure about my medications She was needing a referral for a hospital bed, it helps with her sleeping, it is easier to get in and out The lift chairs I need to walk with balance Ms Tinoco returns after her initial visit on 05/15/2022, in the interim, she has had multiple ER visits and a NH admission. Admitted 06/24/2022-06/27/2022 with; Hypoglycemia, COVID 19, Pyelonephritis and DM.Admitted to [facility] with low blood sugars.Admitted to [facility] with COVID-19.ER at [facility] on 04/12/2022 with; Chest pain, unspecified type; Abdominal pain, generalized; Cough, unspecified type. She is doing well at home and she continues with her 3/week HD sessions. She is blind and would benefit from a hospital bed with railings. She has ESRF for which she is on HD, LV dysfxn and sleeps better with the HOB elevated. She had a hospital bed in the [place] and she apparently had one at home several years ago. She is blind and would need bed railings for safety and a bedside commode. She has difficulty with her balance and proximal muscle weakness which impairs her ability to get up from a sitting position without assistance. She apparently was in touch with her insurance company and they confirmed her eligibility for all the DME equipment. Meggan Littlejohn MD Attn: Accounting,[address] [place], [address], [facility] 10/08/2022 18:13:18 4 text/html Diabetes F/UReported bypatient.Review finger sticks:fastin Labs:last A1C result: 5.3 Context:normal range of home blood sugars (in the low 100s); seeing eye doctor regularly; checking feet regularly; not missing doses of medications; no side effects from medications Associated Symptoms:no weight gain; no weight loss; no dizziness; no sweats; no headaches; no confusion; no increased thirst; no increased appetite; no increased urination; no blurred vision; no numbness of feet; no calluses on feetHypertension F/UReported bypatient.Associated Symptoms:no dizziness; no lightheadedness; no chest pain; no shortness of breath; no palpitations; no edema; no calf pain with exertion Lifestyle:regular exercise; limiting/avoiding salt Medications:taking medications as directed; no side effects from medication Here with her daughterAni She's going to the foot doctor now I hurt my elbow when I landed, I am having numbness I have also have a lot of pain in the back of my neck and shoulder If I could get some therapy for walking? Ms Tinoco returns with her daughter, in the interim, she has been following up with her ledge man, getting her HD treatments, seeing her procurement cost coordinator and following up at the wound care clinic for her left foot ulcer. She had a fall and since then she has noticed tingling and numbness in her left forearm and hand. She also has chronic neck and right shoulder pain as well as difficulty standing up for extended periods while she is doing the dishes. She would like physical therapy and a replacement wheelchair as her current wheelchair which she uses for her HD is in a state of disrepair. She is yet to take her blood pressure medications today and has failed to get her DM labs done. She last took her Trulicity in May,. Meggan Littlejohn MD Attn: Accounting,[address] [facility], [place], [address], [facility] 08/01/2023 12:38:27 4 text/html Diabetes F/UReported bypatient.Labs:last A1C result: 6.8 (08/01/2023) Context:taking aspirin daily; not missing doses of medications; no side effects from medications Associated Symptoms:no weight loss; no dizziness; no sweats; no headaches; no confusion; no increased thirst; no increased appetite; no increased urination; no blurred vision; no numbness of feet; no calluses on feet;weight gain (9 lbs)KneeReported bypatient.Location:left Quality:aching Severity:moderate Duration:months Timing:acute Context:cannot identify Aggravating Factors:walking Associated Symptoms:no weakness; no numbness; no tingling; no swelling; no redness; no warmth; no ecchymosis; no catching/locking; no popping/clicking; no buckling; no grinding; no radiation down leg; no drainage; no fever; no chills; no weight loss; no change in bowel/bladder habits;instability Previous Surgery:none Prior Imaging:none Previous Injections:none Previous PT:none Work Related:no Working:[facility] Annual Wellness VisitReported bypatient.Diet and Nutrition:healthy diet; discussed vitamin and supplement use Fracture Risk:no history of fractures; no recent explained fracture; no sudden unexplained fractures;previous musculoskeletal injuries Physical Activity:does not exercise on a regular basis;decreased physical activity;poor physical condition Depression Risk:never feels sad, empty, or tearful; no loss of interest in activities; no significant changes in weight; no sleep disturbances or insomnia; no agitation; no loss of energy; no feelings of worthlessness or guilt; no thoughts of suicide; no history of depression; no history of mood disorders Orientation:no disorientation to time; no disorientation to date; no disorientation to place Concentration and Memory:no decreased concentrating ability; no memory lapses or loss; does not forget words Speech/Motor difficulties:no speech difficulties; no difficulty expressing formulated concepts; no difficulty with fine manipulative tasks; no difficulty writing/copying; no slowed reaction time; does not knock things over when trying to pick them up Hearing:no loss of hearing Vision:total vision loss Activities of Daily Living:unable to bathe without assistance;unable to dress without assistance;unable to feed self without assistance;unable to get out of chair or bed without assistance;unable to groom without assistance;unable to toilet without assistance Instrumental Activities of Daily Living:unable to do house work without assistance;unable to grocery shop without assistance;unable to manage medications without assistance;unable to manage money without assistance;unable to to prepare meals without assistance;unable to use the phone without assistance Falls Risk Assessment:no frequent falls while walking; no dizziness/vertigo; fall(s) in the past year 3; fall(s) since last visit 2 Home Safety:no unsafe bear hazzards; no unsafe gas appliances; working smoke/CO detectors; wears protective head gear for biking/high velocity; use of seatbelts; no fire arms; has hand bars in the bathroom/shower; good lighting in the home;unsafe stairs;vision or hearing loss while driving Here with a lady I take so much, I don't know what they are called I am doing fine so far I had a fall when I was in my apartment, I went into the rehab [facility] doesn't want to take the wheelchair and the wheelchair she has, is falling apart I can't walk in there because, if I take a few steps, my leg feels like it is going to give out Trying to walk a few steps, being blind, trying to walk, I get out of breath I also get heartburn real bad Ms Tinoco was admitted 09/11/2023-09/13/2023 with orthostatic Hypotension and a fall. Since her last visit, she continues to have problems ambulating and has had at least three falls in the last year. She also had a syncopal or near syncopal event after a HD session. Her current wheelchair is in a state of disrepair and she needs a wheelchair to complete her ADLs. A cane or walker will not be appropriate as she is blind, gets SOBOE with a need to sit down after ambulating short distances, has poor balance, and lacks the strength and coordination to use one. She has also had multiple falls and with her labile blood pressure, she is at high risk of more falls, so this will not be a safe or reasonable option to complete her ADLs. A K1-K4 will not be appropriate, as she will be spending 10-12 hours in the chair, this is multimedia journalist and as they are not adjustable, it will not meet her seating and positioning needs. A light weight frame will allow her to self propel without having to exert herself and get SOB, especially as her BMI is 31. She needs adjustable axles for functional reach of the wheels as well as COG adjustment for stability and optimal propulsion. She will also benefit from a extra high backrest due to her seat to shoulder measurement of 26 , as well as a non standard seat with a depth of 19 , due to her upper leg length of 21 and a seat width of 22 for her 20 hip width.There are no K1-K4 chairs that will meet her needs and she will benefit from a K5 MWC to allow her to carry out her ADLs. With regards to her Thyroid, she was previously on Thyroid replacement An attempt was made to complete a medication reconciliation, she does not have her list, her medications and cannot accurately recall all her medications. She is blind and apparently her medications come pre packaged. She continues to have numbness in her L. forearm and hand especially when she is having her HD session, she also continues to have right shoulder pain as well s pain in her left lower extremity, The LLE pain started after her most recent fall. Meggan Litltejohn MD Attn: Accounting,[address] [place], [address], [facility] 11/26/2023 13:51:16 4 text/html Reflux/GERDReported bypatient.SymptomsAsympt omatic; no difficulty swallowing; no pain swallowing; no postprandial pain; heartburn Quality:burning Severity:improving Duration:present for 1-6 months Onset/Timing:abrupt onset Context:non-smoker; no drug/alcohol abuse; no drug alcohol withdrawal; not related to food/drink Alleviating Factors:lying down Associated Symptoms:no frequent coughing; no feeling of fullness/mass in throat; no hoarseness; no food getting stuck; no belching/burping; no regurgitation; no shortness of breath; no chest pain; no heartburn; no difficulty swallowing; no pain when swallowing; no bad taste; no decreased appetite; no weight loss; no black/tarry stools; no fatigue; no throat pain;nausea;vomiting I still get heartburn real bad Right here, it is been like twitching a little bit Ms Tinoco continues to have heartburn and severe reflux symptoms, it is relieved by avoiding certain foods and Tums, although, she is not really supposed to take that as she is on HD. She also has some twitching around her sternum with intermittent radiation to her LUE. She has an appointment with her procurement cost coordinator soon. Meggan Littlejohn MD Attn: Accounting,[address] [place], [address], [facility] 01/02/2024 11:55:47 OBGyn Episode No OBEpisode recorded.
[2024-08-22 08:22] LABS: Basophils Absolute Auto 0.08 K/mm3 (0.00-0.10); Basophils Percent Auto 1.2 % (0.0-1.0); Eosinophils Absolute Auto 0.59 K/mm3 (0.02-0.50); Hematocrit 31.9 % (35.0-42.0); Hemoglobin 9.9 g/dL (11.7-13.8); Immature Granulocyte Absolute 0.02 K/mm3 (0.00-0.00); Immature Granulocyte Percent A 0.3 % (0.0-0.0); Lymphocytes Absolute Auto 1.45 K/mm3 (1.10-4.50); Lymphocytes Percent Auto 22.2 % (18.0-42.0); Mean Corpuscular Hemoglobin 28.9 pg (27.0-31.0); Mean Platelet Volume 10.1 fl (9.2-11.8); Monocytes Absolute Auto 0.65 K/mm3 (0.10-0.90); Neutrophils Absolute Auto 3.73 K/mm3 (1.70-7.20); Neutrophils Percent Auto 57.3 % (50.0-70.0); Platelet Count Result 194 K/mm3 (150-420); Red Blood Count 3.43 M/mm3 (4.20-5.40); Red Cell Distribution Width 14.3 % (11.6-14.4); White Blood Count 6.5 K/mm3 (4.8-10.8)
[2024-08-22 09:37] LABS: Alanine Aminotransferase 13 U/L (14-59); Albumin Level 3.2 g/dL (3.4-5.0); Alkaline Phosphatase 98 U/L (46-116); Anion Gap 6 mmol/L (4-12); Aspartate Amino Transferase 13 U/L (15-37); Bilirubin,Total 0.6 mg/dL (0.00-1.00); Blood Urea Nitrogen 20 mg/dL (7-18); Calcium 9.5 mg/dL (8.5-10.1); Carbon Dioxide 33 mmol/L (21-32); Chloride 105 mmol/L (98-108); Cholesterol 83 mg/dL (0-200); Creatine Kinase 22 U/L (26-192); Estimated Glomerular Filt Rate 8; Glucose 85 mg/dL (70-99); HDL Direct 46 mg/dL (40-60); LDL Cholesterol Calculated 28 mg/dL (<130); Osmolality Calculated 299 mOsm/kg (285-295); Sodium 144 mmol/L (136-145); Total Protein 6.9 g/dL (6.4-8.2); Triglycerides 43 mg/dL (0-150)
== END 2024-08-22 08:04 | disposition home or self-care (01) ==
LOC: CHSLAB 08:07
PROVIDERS: PCP Internal Medicine Infectious Disease; Visit Provider Physician Assistant
DX: E03.9 Hypothyroidism, unspecified (principal); E78.5 Hyperlipidemia, unspecified
CPT/HCPCS: 36415; 80053; 80061; 82550; 84443; 85025

== ENCOUNTER 2024-10-01 14:44 | Outpatient (CLI) | payer MEDICARE, MEDICAID, SELFPAY ==
--- NOTE | ~2024-10-01 | MM_ITS ---
EXAMINATION: MM screening jacob BI w devante HISTORY: Screening TECHNIQUE: Craniocaudal and mediolateral oblique 3-D tomosynthesis images were obtained and synthetic 2-D images were generated. CAD analysis was submitted and interpreted. COMPARISON: No prior mammogram is available for comparison at this institution. BREAST PARENCHYMAL COMPOSITION: Not dense: There are scattered areas of fibroglandular density. FINDINGS: There is no evidence of suspicious mass, calcification, or architectural distortion to sugg est malignancy in either breast. There has been no suspicious interval change. IMPRESSION: 1. No mammographic evidence of malignancy. 2. Recommend routine screening mammography in one year. BI-RADS Category 1: Negative Reviewed, dictated and finalized at location A.
--- OUTSIDE RECORDS SUMMARY | 2024-10-01 16:01 | XMS_ITS | Encounter Summary ---
Author Organization [facility] Health Address [address] [place] [address] Care Team Providers Care Timber Framer Name Role Phone Meggan Littlejohn MD Primary Care Provider Gilles Morrison Primary Care Provider Encounter Details Date Type Department Care Team (Late st Contact Info) Description 03/10/2018 [facility] Outpatient Visit [facility] [address] [place] [address] [place] [address] [facility] [address] [place] [address] Social History Tobacco Use Types Packs/Day Years Used Date Smoking Tobacco: Never Smokeless Tobacco: Never Alcohol Use Standard Drinks/Week Comments No 0 (1 standard drink = 0.6 oz pur e alcohol) Comments Unknown Sex and Gender Information Value Date Recorded Sex Assigned at Not on file Legal Sex Female 6:17 AM PLUGGER WORKER Gender Identity Not on file Sexual Orientation Not on file documented as of this encounter Plan of Treatment Upcoming Encounters Date Type Department Care Team (Late st Contact Info) Description 04/01/2025 11:00 AM CDT Appointment [facility] Health Vascular Services [address] [facility], [address] [place] [address] [place] [address] [facility] [address] [place] [address] documented as of this encounter Visit Diagnoses Not on filedocumented in this encounter Additional Health Concerns Infection Onset Date Last Indicated Resolved Time COVID-19 Under Investigation 04/12/2022 04/12/2022 04/12/2022 3:05 PM CDT documented as of this encounter Care Teams Timber Framer Relationship Specialty Start Date End Date Meggan Littlejohn MD [address] [place], [place] [phone] PCP - General Internal Medicine 03/10/18 07/14/18 Gilles Morrison APRN-RN FACULTY [address] [place] [id number] PCP - General Nurse Practitioner 07/15/18 documented as of this encounter
--- OUTSIDE RECORDS SUMMARY | 2024-10-01 16:01 | XMS_ITS | Encounter Summary ---
Author Organization [facility] Address [address] [facility] [place] [address] Care Team Providers Care Pipe Insulator Name Role Phone Gilles Morrison AIRWAY CONTROLLER-PIECE DYER Primary Care Provider Encounter Details Date Type Department Care Team ([facility] Contact Info) Description 03/22/2023 Telephone [facility] . Wound Care [address] [place] [address], [address] [address] Binh Messina, RN Social History Tobacco Use Types Packs/Day [...] more drinks on one occasion? Never 04/12/2022 Comments Unknown Sex and Gender Information Value Date Recorded Sex Assigned at Not on file Legal Sex Female 6:17 AM SOFTWARE TESTING SPECIALIST Gender Identity Not on file Sexual Orientation Not on file documented as of this encounter Plan of Treatment Upcoming Encounters Date Type Department Care Team ([facility] Contact Info) Description 04/01/2025 11:00 AM CDT Appointment [facility] Vascular Services [address] [place] [address], [address] [place] [address] [place] [address] [facility] [address] [place] [address] documented as of this encounter Visit Diagnoses Not on filedocumented in this encounter Care Teams Pipe Insulator Relationship Specialty Start Date End Date Gilles Morrison, CYRIL-PIECE DYER [address] [place] [address] PCP - General Nurse Practitioner 07/15/18 documented as of this encounter
--- OUTSIDE RECORDS SUMMARY | 2024-10-01 16:01 | XMS_ITS | Referral Summary ---
Author Organization [facility] Address [facility] [place] [address] Care Team Providers Care City Carrier Assistant Name Role Phone Meggan Littlejohn MD Primary Care Provider Encounters Date Type Department Care Team Description 08/31/2024 - 08/31/2024 4:38 PM CDT Emergency [facility] Emergency Department [address] [place] [address] Discharge Disposition: ED Dismiss - Never Arrived from Last 3 Months Allergies Active Allergy Reactions Criticality Noted Date [...] week 06/26/2022 How often do you attend [employer] or hinduism services? Never 06/26/2022 Do you belong to any clubs o r organizations such as sikh groups, unions, fraternal or athletic groups, or [...] place to sleep or slept in a detention (including now)? No 06/26/2022 Personal Safety Answer Date Recorded Getting School Help Needed Denies 06/16 Comments Unknown Sex and Gender Information Value Date Recorded Sex Assigned at Not on file Legal Sex Female 5:36 PM SPIKE MACHINE FEEDER Gender Identity Not on file Sexual Orientation Not on file Last Filed Vital Signs Vital Sign Reading Time Taken Comments Blood Pressure 155/53 06/27/2022 1:12 PM SPIKE MACHINE FEEDER Pulse 86 06/27/2022 1:12 PM SPIKE MACHINE FEEDER Temperature 36.8 C (98.2 F) 06/27/2022 1:12 PM SPIKE MACHINE FEEDER Respiratory Rate 16 06/27/2022 1:1 2 PM SPIKE MACHINE FEEDER Oxygen Saturation 95% 06/27/2022 1:12 PM SPIKE MACHINE FEEDER Inhaled Oxygen Concentration - - Weight 103.3 kg (227 lb 12.8 oz) 06/27/2022 4:33 AM SPIKE MACHINE FEEDER Height 162.6 cm (5' 4 ) 06/25/2022 12:1 5 AM SPIKE MACHINE FEEDER Body Mass Index 39.1 06/25/2022 12:15 AM SPIKE MACHINE FEEDER Plan of Treatment Not on file Procedures Procedure Name Priority Date/Time Associated Diagnosis Comments EGFR Routine 06/27/2022 6:53 AM SPIKE MACHINE FEEDER HEPATITIS PANEL, ACUTE STAT 06/25/2022 9:29 AM SPIKE MACHINE FEEDER from Last 3 Months or Most Recently Relevant to Health Maintenance Results * eGFR (06/27/2022 6:53 AM SPIKE MACHINE FEEDER) eGFR 6 mL/min/1. 73 m2 IRIS DE [...] last reviewed 2021. Blood 06/27/2022 6:53 AM SPIKE MACHINE FEEDER 06/27/2022 7:23 AM SPIKE MACHINE FEEDER us Juaquin Alonzo MD LAB BLOOD ORDERABLES Final Resul t [facility] [place] ([place]) [address] Department [place] [address] * Hepatitis panel, acute (06/25/2022 9:29 AM SPIKE MACHINE FEEDER) Hep A IgM Nonreactive Nonreactive [facility] [place] [facility] ([place]) Comment: Interpretive Data: If Hep A IgM Ab is reported as Equivocal, a new sample should be drawn in two weeks for testing. Current interpretive data was last revised on 19. Testing performed by: [address] [address] Hep B core IgM Nonreactive Nonreactive [facility] ([place]) Comment: Interpretive Data If HepB Core IgM Ab is reported as Equivocal, a new sample should be drawn in two weeks for testing. Current interpretive data was last revised on 19. Testing performed by: [address] [address] Hep C Ab Nonreactive Nonreactive IRIS DE [...] last revised on 2019. Testing performed by: [address] [address] HepBsAg Nonreactive Nonreactive [facility] [place] [facility] ([place]) Comment:Testing performed by : [address] [address] Blood 06/25/2022 9:29 AM SPIKE MACHINE FEEDER 06/25/2022 2:48 PM SPIKE MACHINE FEEDER Dimitris Owens MD LAB MICROBIOLOGY - GENERAL OR DERABLES Final Result [facility] ([place]) [address] [facility] Department [place] [address] from Last 3 Months or Most Recently Relevant to Health Maintenance Insurance IDPA [facility] MEDICARE ADVANTAGE [facility] MEDICARE Address: [address] [address] [place] [address] [employer]PA Advance Directives For more information, please contact: [phone] * Full Code (Latest Code Status on File) Date Activated Date Inactivated Comments 06/24/2022 11:13 PM 06/28/2022 12:08 AM Care Teams City Carrier Assistant Relationship Specialty Start Date End Date Meggan Littlejohn MD [address] [address] PCP - General 01/01/17
--- OUTSIDE RECORDS SUMMARY | 2024-10-01 16:01 | XMS_ITS | Encounter Summary ---
Author Organization [facility] Address [address] [facility] [place] [address] Care Team Providers Care Interlacer Name Role Phone Gilles Morrison APRN-[facility] Primary Care Provider Reason for Referral * Radiology Services (Routine) - Closed Specialty Diagnoses / Procedures Referred By [employer] Referred To Contact Vascular Lab Diagnoses ESRD (end stage renal disease) (HCC) Procedures IR Angio Av [place] [id number] [place] [address] [place] [phone] Phone: tel: fax: [facility] [id number] [place] [address], [address] [place] [address] Phone: tel: fax: Referral ID Status Reason Start Date Expiration Date Visits Re quested Visits Authorized [id number] Closed 05/21/2024 10/01/2024 1 1 Reason for Visit * Radiology Services (Routine) - Closed Specialty Diagnoses / Procedures Referred By [employer] t Referred To Contact Vascular Lab Diagnoses ESRD (end stage renal disease) (HCC) Procedures IR Angio Av Shunt [place]aña [place] [id number] [place] [address] [address] [place] [address] Phone: tel: fax: [facility] [address] [facility], [address] [place] [address] Phone: tel: fax: Referral ID Status Reason Start Date Expiration Date Visits Re quested Visits Authorized [id number] Closed 05/21/2024 10/01/2024 1 1 Encounter Details Date Type Department Care Team (Late st Contact Info) Description 10/01/2024 10:00 AM CDT Hospital Encounter [facility] Health V[facility] Services [address] [facility], [address] [place] [address] [place] [address] [facility] [address] [place] [address] Social History Tobacco Use Types Packs/Day Years [...] on file Legal Sex Female 6:17 AM [employer] Gender Identity Not on file Sexual Orientation Not on file documented as of this encounter Last Filed Vital Signs Vital Sign Reading Time Taken Comments Blood Pressure 152/63 10/01/2024 11:05 AM CDT Pulse 75 10/01/2024 11:05 AM CDT Temperature 37.4 C (99.3 F) 10/01/2024 10:23 AM CDT Respiratory Rate 8 10/01/2024 11:05 AM CDT Oxygen Saturation 96% 10/01/2024 11:05 AM CDT Inhaled Oxygen Concentration - - Weight 82.6 kg (182 lb) 10/01/2024 10:23 AM CDT Height 165.1 cm (5' 5 ) 10/01/2024 10:23 AM CDT Body Mass Index 30.29 10/01/2024 10:23 AM CDT documented in this encounter Progress Notes * Sandhya Chiang RN - 10/01/2024 10:25 AM CDT Patient has left upper arm access, pulsatile. Patient complains of excessive bleeding when needles are taken out after dialysis treatment. documented in this encounter H&P Notes * Jose Magaña MD - 10/01/2024 11:00 AM CDT Chief Complaint ESRD History and Physical Zuleyka Tinoco is a 69 year old female. Patient has a left arm access being used for dialysis. Patient had imaging last 05/2024 showing hemodynamically significant subclavian vein stenosis . Patientpresents with intermittent prolonged bleeding following decannulation from dialysis. 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 2 diabetes mellitus Disorder of thyroid ESRD (end stage renal disease) [facility] 04-13-19 ESRD on dialysis Heart abnormality heart only working at 45% Hypertension Pulmonary embolism Sleep apnea no cpap TB (pulmonary tuberculosis) 1965 Past Medical & Surgical History[1] Allergies[2] Medications Ordered Prior to Encounter[3] Social History[4] Family History Problem Relation Name Age of Onset Cancer - Breast Mother Diabetes - Type 2 Father COPD - Chronic Obstructive Pulmonary Disease Father Other Father cerebral hemorrhage Cancer - Lung Brother Diabetes - Type 2 Brother Diabetes - Type 2 Brother Physical Examination Constitutional: Vital signs are stable and the patient is no acute distress. Eyes: Reveal no icterus. Neck: Neck is supple without JVD or bruit. Respiratory: Lungs are clear. Cardiovascular: Regular rate and rhythm. GI: Abdomen is soft and non tender. Musculoskeletal: Extremities are warm and well perfused. Patent left upper arm access with moderatepulsatility and pseudoaneurysm formation Neurologic: Intact. SEDATION PLAN: minimal ASA? Physical Status Classification: 3 (A patient with severe systemic disease) Patient airway and condition has been evaluated immediately prior to sedation and/or analgesia: Yes. I have discussed with the patient all options, including risks and benefits. The patient wishes to proceed with fistulogram. Impression/Plan: ESRD. Will plan for fistulogram. I have discussed the risks, benefits and alternatives with the patient who understands and wishes to proceed. [1] Past Surgical History: Procedure Laterality Date A-V SHUNT CREATION Left 04/10/2018 Left; LEFT UPPER ARM ARTERIOVENOUS FISTULA A-V SHUNT CREATION Left 07/15/2018 Left; LEFT UPPER ARM DIALYSIS FISTULA TRANSPOSITION LIGATION OF CALATERALS Cardiac Catherization no stents INSERTION DIALYSIS CATHETER 03/2018 Right and removed 12/2018 VASCULAR PROCEDURE/SURGERY Left 03/31/2019 Left; RESECTION LEFT ARM ANEURYSM, REVISE AV FISTULA [2] Allergies Allergen Reactions Captopril-Hydrochlorothiazide Urticaria Hctz [Hydrochlorothiazide] Rash [3] Current Outpatient Medications on File Prior to Visit Medication Sig Dispense Refill atorvastatin (Lipitor) 40 MG tablet atorvastatin 40 mg tablet Blood Glucose Monitoring Suppl (ONE TOUCH ULTRA 2) W/DEVICE KIT use to test twice daily ICD-10 E11.9 blood glucose test strip TEST TWICE DAILY carvedilol (COREG) 12.5 MG tablet Take 1 (one) tablet by mouth 2 times daily doxycycline hyclate (Vibramycin) 100 MG capsule Glucagon, rDNA, (Glucagon Emergency) 1 MG KIT (Patient not taking: Reported on 01/16/2024) NIFEdipine CR 24hr (ADALAT CC) 60 MG tablet Take 30 mg by mouth once daily NIFEdipine CR 24hr (Adalat CC) 90 MG tablet ondansetron (Zofran) 4 MG tablet ondansetron, disintegrating, (Zofran ODT) 4 MG tablet DISSOLVE 1 TABLET ON THE TONGUE EVERY 8 HOURSAS NEEDED FOR NAUSEA AND VOMITING One Touch Delica Lancets OneTouch Delica Lancets 30 gauge sevelamer carbonate (RENVELA) 800 MG Take 1 (one) tablet by mouth 3 times daily with meals Take 2 with meals terbinafine (LamISIL) 1 % cream APPLY TO THE AFFECTED AND SURROUNDING AREAS OF SKIN BY TOPICAL ROUTE ONCE DAILY TRULICITY 1.5 MG/0.5ML injection Inject 1.5 (one and one-half) mg subcutaneously once daily No current facility-administered medications on file prior to visit. [4] Social History Tobacco Use Smoking status: Former Current packs/day: 0.00 Average packs/day: 3.0 packs/day for 15.0 years (45.0 ttl pk-yrs) Types: Cigarettes Start date: 04/17/1975 Quit date: 04/17/1990 Years since quittin.4 Smokeless tobacco: Never Vaping Use Vaping status: Never Used Substance Use Topics Alcohol use: No Drug use: No * Jose Magaña MD - 10/01/2024 10:08 AM CDT Patient examined, H&P reviewed and remains current and/or changes noted Jose Magaña MD 10/01/2024 10:09 AM documented in this encounter Procedure Notes * Jose Magaña MD - 10/01/2024 11:08 AM CDTAssociated Order(s): IR ANGIO AV SHUNT IMAGING [facility] [place] Zuleyka Dinah Earnest 1955 DATE OF PROCEDURE: 10/01/2024 ORDERING PHYSICIAN: Gómez PROCEDURE: Left AV fistulogram with central venous angioplasty INDICATIONS FOR PROCEDURE: Pseudoaneurysm formation and intermittent prolonged bleeding following decannulation DESCRIPTION OF PROCEDURE:The patient???s left upper arm was prepped and draped in the normal sterile manner. Using local anesthesia the access was punctured with the needle directed towards the central circulation. A guidewire was advanced under fluoroscopy and a 5 Welsh catheter placed. Digital subtraction images were obtained from the arterial anastomosis to the level of the SVC. Reflux examination showed a nicely patent arterial anastomosis. There was pseudoaneurysm formation that was moderate in the stick zone. The outflow vein was widely patent. The cephalic arch stent was widely patent. There was a hemodynamically significant stenosis in the subclavian vein. The decision was made to perform angioplasty. Five Welsh sheath was upsized to a 7 Welsh sheath. Moderate IV conscious sedation was administered by Dr. Magaña using 0.5 mg of Versed and 100 mcg ofFentanyl. The patient's airway and condition was evaluated immediately prior to sedation and/or analgesia. The patient was independently monitored by a registered nurse for 30 minutes using automatedblood pressure, EKG, end tidal CO2, and pulse oximetry. There were no complications. A series of catheter wire manipulations were done to cross the stenosis and this was dilated with a10 mm x 4 cm balloon with good radiographic and excellent clinical result. A total of 15 cc of contrast and 7.5 mGy radiation were used for the procedure. The balloon wire and sheath were removed anddirect digital pressure was used for hemostasis. The patient left the center in stable and satisfactory condition. FINDINGS: Subclavian vein stenosis IMPRESSION: Successful central venous angioplasty using IV conscious sedation as described DICTATED BY: Jose Magaña M.D. DATE DICTATED: 10/01/2024 Interventional Post-Operative/Procedure Notes Surgeon: Gómez Pre Procedure Diagnosis: ESRD Post Procedure Diagnosis: ESRD Anesthesia: Local 1% lidocaine and IV sedation Disposition: OPS Status: Stable Drain or Pack: None Additional Information/Complications: None Estimated Blood Loss: Negligible Specimen: None documented in this encounter Plan of Treatment Upcoming Encounters Date Type Department Care Team (Late st Contact Info) Description 04/01/2025 11:00 AM CDT Appointment [facility] [address] [place] [address], [address] [place] [address] Jose Magaña MD [address] [place] [address] [address] [place] [phone] Scheduled Orders Name Type Priority Associated Diagnoses Order Schedule IR: PULSE OXIMETRY, CONTINUOUS Respiratory Care Routine Use in Procedur al areas only until discontinued starting 10/01/2024 documented as of this encounter Procedures Procedure Name Priority Date/Time Associated Diagnosis Comments IR ANGIO AV SHUNT IMAGING Routine 10/01/2024 10:54 AM CDT ESRD (end stage renal disease) (HCC) documented in this encounter Results * IR Angio Av Shunt Imaging (10/01/2024 10:54 AM CDT) Anatomical Region Laterality Modality Lower Extremity, Upper Extremity, Chest X-Ray Angiography Narrative 10/01/2024 11:08 AM Jose Mckinney MD 10/01/2024 11:11 AM [facility] [place] Zuleyka Tinoco 1955 DATE OF PROCEDURE: 10/01/2024 ORDERING PHYSICIAN: Gómez PROCEDURE: Left AV fistulogram with central venous angioplasty INDICATIONS FOR PROCEDURE: Pseudoaneurysm formation and intermittent prolonged bleeding following decannulation DESCRIPTION OF PROCEDURE:The patient s left upper arm was prepped and draped in the normal sterile manner. Using local anesthesia the access was punctured with the needle directed towards the central circulation. A guidewire was advanced under fluoroscopy and a 5 Welsh catheter placed. Digital subtraction images were obtained from the arterial anastomosis to the level of the SVC. Reflux examination showed a nicely patent arterial anastomosis. There was pseudoaneurysm formation that was moderate in the stick zone. The outflow vein was widely patent. The cephalic arch stent was widely patent. There was a hemodynamically significant stenosis in the subclavian vein. The decision was made to perform angioplasty. Five Welsh sheath was upsized to a 7 Welsh sheath. Moderate IV conscious sedation was administered [...] were done to cross the stenosis and this was dilated with a 10 mm x 4 cm balloon with good radiographic and excellent clinical result. A total of 15 cc of contrast and 7.5 mGy radiation were used for the procedure. The balloon wire and sheath were removed and direct digital pressure was used for hemostasis. The patient left the center in stable and satisfactory condition. FINDINGS: Subclavian vein stenosis IMPRESSION: Successful central venous angioplasty using IV conscious sedation as described DICTATED BY: Jose Magaña M.D. DATE DICTATED: 10/01/2024 Interventional Post-Operative/Procedure Notes Surgeon: Gómez Pre Procedure Diagnosis: ESRD Post Procedure Diagnosis: ESRD Anesthesia: Local 1% lidocaine and IV sedation Disposition: OPS Status: Stable Drain or Pack: None Additional Information/Complications: None Estimated Blood Loss: Negligible Specimen: None Jose Magaña MD IR ORDERABLES Final Re sult documented in this encounter Visit Diagnoses Diagnosis ESRD (end stage renal disease) (HCC) End stage renal disease documented in this encounter Administered Medications Active Administered Medications - up to 3 most recent administrations Medication Order MAR Action Action Date Dose Rate Site 0.9% NaCl infusion at 50 mL/hr, Intravenous, INTRA-PROCEDURE MULTIPLE, Starting on [place] 10/01/24 at 1007, Until Discontinued, Intra-procedure (IR) $ New Bag/Syringe 10/01/2024 10:55 AM CDT 40 mL 50 mL/hr fentaNYL (PF) (Sublimaze) injection 25-100 mcg 25-100 mcg, Intravenous, INTRA-PROCEDURE MULTIPLE, Starting on [place] 10/01/24 at 1007, Until Discontinued, Administer every 5 minutes during procedure as needed for sedation. Dose to be determined by physician. Patient preference for lesser PRN pain meds may be honored when the patient requests a less strong medication, a lower dose, or a less intrusive route of administration when the lesser drug, dose and route have been ordered for the patient. This patient request must be documented in the MAR. If both oral and IV options are ordered for the same pain severity, give oral first unless patient cannot tolerate oral intake, Intra-procedure (IR) $ Given 10/01/2024 10:50 AM CDT 100 mcg iopamidol (Isovue 300) 61 % contrast Intravenous, INTRA-PROCEDURE MULTIPLE, Starting on [place] 10/01/24 at 1007, Until Discontinued, Intra/Post-procedure $ Given - Contrast 10/01/2024 10:55 AM CDT 15 mL $ Given - Contrast 10/01/2024 10:50 AM CDT 0.5 mL lidocaine (Xylocaine) 1 % injection Infiltration, INTRA-PROCEDURE MULTIPLE, Starting on [place] 10/01/24 at 1007, Until Discontinued, Intra-procedure (IR) $ Given 10/01/2024 10:43 AM CDT 10 mg documented in this encounter Care Teams Interlacer Relationship Specialty Start Date End Date Gilles Morrison, VASCULAR RADIOLOGIST-HOSIERY MATER [address] [place], [place] [id number] PCP - General Nurse Practitioner 07/15/18 documented as of this encounter
--- OUTSIDE RECORDS SUMMARY | 2024-10-01 16:01 | XMS_ITS ---
Author Organization [facility] Address [facility] [place] [address] Care Team Providers Care Plastic Welding Machine Operator Name Role Phone Meggan Littlejohn MD Primary Care Provider Dialysis Access Sites Type Status Location Placement Date Removal Da te AV fistula Active Left Upper Arm - Anterior Procedures Procedure Name Priority Date/Time Associated Diagnosis Comments EGFR Routine 06/27/2022 6:53 AM PUTTIER HEPATITIS PANEL, ACUTE STAT 06/25/2022 9:29 AM PUTTIER from Last 3 Months or Most Recently [...] often do you attend chur ch or confucianist services? Never 06/26/2022 Do you belong to any clubs o r organizations such as baptist groups, unions, fraternal or athletic groups, or [...] place to sleep or slept in a nursing home (including now)? No 06/26/2022 Personal Safety Answer Date Recorded Getting School Help Needed Denies 06/16 Comments Unknown Sex and Gender Information Value Date Recorded Sex Assigned at Not on file Legal Sex Female 5:36 PM PUTTIER Gender Identity Not on file Sexual Orientation Not on file Last Filed Vital Signs Vital Sign Reading Time Taken Comments Blood Pressure 155/53 06/27/2022 1:12 PM PUTTIER Pulse 86 06/27/2022 1:12 PM PUTTIER Temperature 36.8 C (98.2 F) 06/27/2022 1:12 PM PUTTIER Respiratory Rate 16 06/27/2022 1:12 PM PUTTIER Oxygen Saturation 95% 06/27/2022 1:12 PM PUTTIER Inhaled Oxygen Concentration - - Weight 103.3 kg (227 lb 12.8 oz) 06/27/2022 4:33 AM PUTTIER Height 162.6 cm (5' 4 ) 06/25/2022 12:1 5 AM PUTTIER Body Mass Index 39.1 06/25/2022 12:15 AM PUTTIER Results * eGFR (06/27/2022 6:53 AM PUTTIER) eGFR 6 mL/min/1. 73 m2 [facility] ([place]) Comment: Interpretive Data Reference Interval Normal >/= [...] last reviewed 2021. Blood 06/27/2022 6:53 AM PUTTIER 06/27/2022 7:23 AM PUTTIER us Juaquin Alonzo MD LAB BLOOD ORDERABLES Final Resul t [facility] ([place]) [address] [facility] Department [place] [address] * Hepatitis panel, acute (06/25/2022 9:29 AM PUTTIER) Hep A IgM Nonreactive Nonreactive [facility] ([place]) Comment: Interpretive Data: If Hep A IgM Ab is reported as Equivocal, a new sample should be drawn in two weeks for testing. Current interpretive data was last revised on 19. Testing performed by: [facility], [address] [place] [address]., [id number] Hep B core IgM Nonreactive Nonreactive Leonid DE ANDA ([place]) Comment: Interpretive Data If HepB Core IgM Ab is reported as Equivocal, a new sample should be drawn in two weeks for testing. Current interpretive data was last revised on 19. Testing performed by: [facility], [address] [place] [address]., [id number] Hep C Ab Nonreactive Nonreactive IRIS DE [...] last revised on 2019. Testing performed by: [facility], [address] [place] [address]., [id number] HepBsAg Nonreactive Nonreactive [facility] ([place]) Comment:Testing performed by : [address] [id number] Blood 06/25/2022 9:29 AM PUTTIER 06/25/2022 2:48 PM PUTTIER us Dimitris Owens MD LAB MICROBIOLOGY - GENERAL OR DERABLES Final Result [facility] ([place]) 1 [facility] Department of [employer] [place], [place] [id number] from Last 3 Months or Most Recently Relevant to Health Maintenance
--- OUTSIDE RECORDS SUMMARY | 2024-10-01 16:01 | XMS_ITS | Clinical Summary ---
Author Organization [facility] Address [address] [place] [address] Care Team Providers Care Tribunal Member Name Role Phone PrinceGilles Parminder AIRCRAFT PNEUDRAULICS REPAIRER-REFUGE WORKER Primary Care Provider Source Comments [facility],non[facility] Affiliates and Associated Physician Practices is amultiple site organization consisting of ambulatory clinics and hospital sitesin [place], [place], [place] and [place]. This disclosure is being madepursuant to the Care Everywhere program and may not contain all information available regarding this patient. Last updated 18.[facility] Allergies Active Allergy Reactions Criticality Noted Date Comments Captopril-Hydrochlorothiazide Urticaria Medium Hydrochlorothiazide Rash Medium 03/10/2018 Medications * Be aware that medications may not be up to date on this document. Alwaysverify current medications with the patient. carvedilol (COREG) 12.5 MG tablet Take 1 (one) tablet by mouth 2 times daily Active NIFEdipine CR 24hr (ADALAT CC) 60 MG tablet Take 30 mg by mouth once daily 8 Active One Touch Delica Lancets OneTouch Delica Lancets 30 gauge Active blood glucose test strip TEST TWICE DAILY Ac tive Blood Glucose Monitoring Suppl (ONE TOUCH ULTRA 2) W/DEVICE KIT use to test twice daily ICD-10 E11.9 Active sevelamer carbonate (RENVELA) 800 MG Take 1 (one) tablet by mouth 3 times daily with meals Take 2 with meals Active TRULICITY 1.5 MG/0.5ML injection Inject 1.5 (one and one-half) mg subcutaneously once daily 0 Active atorvastatin (Lipitor) 40 MG tablet atorvastatin 40 mg tablet Active Glucagon, rDNA, (Glucagon Emergency) 1 MG KIT 3 Active NIFEdipine CR 24hr (Adalat CC) 90 MG tablet 4 Active ondansetron (Zofran) 4 MG tablet 4 Active doxycycline hyclate (Vibramycin) 100 MG capsule 4 Active ondansetron, disintegrating , (Zofran ODT) 4 MG tablet DISSOLVE 1 TABLET ON THE TONGUE EVERY 8 HOURS NEEDED FOR NAUSEA AND VOMITING Active terbinafine (LamISIL) 1 % cream APPLY TO THE AFFECTED AND SURROUNDING AREAS OF SKIN BY TOPICAL ROUTE ONCE DAILY 4 Active Active Problems Problem Noted Date Diagnosed Date Open wound of right great toe 03/19/2023 Encounter regarding vascular access for dialysis for end-stage renal disease 07/18/2022 Hypoglycemia 06/22/2022 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 [address] [facility], [place] [address] Jose Magaña MD 10/01/2024 Travel from Last 3 Months Family History Medical History Relation Name Comments [...] on file Legal Sex Female 6:17 AM TITLE I PARAPROFESSIONAL Gender Identity Not on file Sexual Orientation [...] Mass Index 30.29 10/01/2024 10:23 AM CDT Plan of Treatment Upcoming Encounters Date Type Department Care Team (Late st Contact Info) Description 04/01/2025 11:00 AM CDT Appointment [facility] [address] [facility] [address] [facility], [address] [place] [address] [place] [address] [facility] [address] [place] [id number] Health Maintenance Due Date Last Done Comments [...] years 1-dose series) 2016 COVID-19 VACCINE ( season) 2024 DEPRESSION SCREENING 06/10/2024 MEDICARE AWV CALENDAR YEAR 2024 INFLUENZA VACCINE (Season Ended) 2025 04/10/2023, 04/11/2022, 03/12/2022, Additional history exists SCREENING FOR DIABETES 04/12/2025 , 03/31/2019, 03/31/2019, Additional history exists HEPATITIS C SCREENING Completed 06/25/2022 , 04/12/2022, 03/12/2019 HIB VACCINE Aged Out No longer eligi [...] CDT ESRD (end stage renal disease) (HCC) COMPREHENSIVE METABOLIC PANEL STAT 04/12/2022 2:09 PM CDT HEPATITIS C ANTIBODY STAT 04/12/2022 2:09 PM CDT from Last 3 Months or Most Recently Relevant to Health Maintenance Results * IR Angio [facility] (10/01/2024 10:54 AM CDT) Anatomical Region Laterality Modality Lower Extremity, Upper Extremity, Chest X-Ray Angiography Narrative 10/01/2024 11:08 AM CDT Jose Magaña MD 10/01/2024 11:11 AM [facility] Zuleyka Tinoco 1955 DATE OF PROCEDURE: 10/01/2024 [...] was advanced under fluoroscopy and a 5 Maldivian catheter placed. Digital subtraction images were obtained [...] decision was made to perform angioplasty. Five Maldivian sheath was upsized to a 7 Maldivian sheath. Moderate IV conscious sedation was administered [...] None Estimated Blood Loss: Negligible Specimen: None us Jose Magaña MD IR ORDERABLES Final Re sult * (ABNORMAL) COMPREHENSIVE METABOLIC PANEL (04/12/2022 2:09 PM CDT) Pathologist [facility] Glucose 100 70 - 105 mg/dL 04/12/2022 2:42 PM CDT [facility] Sodium 137 136 - 145 mmol/L 04/12/2022 2:42 PM CDT [facility] Potassium 4.0 3.5 - 5.1 mmol/L 04/12/2022 2:42 PM CDT [facility] Chloride 102 98 - 107 mmol/L 04/12/2022 2:42 PM CDT [facility] CO2 28 23 - 31 mmol/L 04/12/2022 2:42 PM CDT [facility] Calcium 8.8 8.4 - 10.4 mg/dL 04/12/2022 2:42 PM CDT [facility] Anion Gap 7(L) 8 - 18 mmol/L 04/12/2022 2:42 PM CDT [facility] BUN 13 9.8 - 20.1 mg/dL 04/12/2022 2:42 PM CDT [facility] Creatinine 5.73(H) 0.57 - 1.11 mg/dL 04/12/2022 2:42 PM T [facility] Alkaline Phosphatase 66 40 - 150 U/L 04/12/2022 2:42 PM CDT [facility] ALT <6 0 - 61 U/L 04/12/2022 2:42 PM CDT [facility] AST 13 5 - 34 U/L 04/12/2022 2:42 PM CDT [facility] Protein Total 6.9 6.4 - 8.3 gm/dL 04/12/2022 2:42 PM T [facility] Albumin 3.0(L) 3.2 - 4.6 gm/dL 04/12/2022 2:42 PM T [facility] Bilirubin Total 0.7 0.2 - 1.2 mg/dL 04/12/2022 2:42 PM T [facility] eGFR by CKD-EPI 8(L) >=90 mL/min/1.7 3 m2 04/12/2022 2:42 PM CDT [facility] Blood BLOOD SPECIMEN / Unknown Venipuncture / Unknown 04/12/2022 2:09 PM CDT 04/12/2022 2:19 PM CDT us Carolina Egan PA-C LAB - CHEMISTRY ORDERABL ES Final Result [facility] [address] [place] [address] * HEPATITIS C ANTIBODY (04/12/2022 2:09 PM CDT) HCV Antibody Screen Non Reactive Non Reactive 04/12/2022 2:58 PM CDT [facility] Blood BLOOD SPECIMEN / Unknown Venipuncture / Unknown 04/12/2022 2:09 PM CDT 04/12/2022 2:19 PM CDT Narrative [facility] - 04/12/2022 2:58 PM CDT Non Reactive - Antibodies to Hepatitis C virus (HCV) were not detected, result does not exclude early acute HCV infection. Dyan Aguilar DO LAB - CHEMISTRY ORDERABLES Final Result [facility] [address] [place] [address] from Last 3 Months or Most Recently Relevant to Health Maintenance Insurance [facility] MEDICARE [facility] Care Teams Tribunal Member Relationship Specialty Start Date End Date Gilles Morrison, AIRCRAFT PNEUDRAULICS REPAIRER-REFUGE WORKER [address] [place] [address] PCP - General Nurse Practitioner 07/15/18
--- OUTSIDE RECORDS SUMMARY | 2024-10-01 16:01 | XMS_ITS | Data Portability ---
Author Organization [facility], Main Office Address [address] [place] [address] Assessment No assessment recorded. Plan of Treatment Reminders Order Date Submit Date Provider Last Modified By Organization Details Last Modified Time Details Appointments Any 2024 02:15P NIKKI Bird Not available Not available Not available Follow Up 2024 08:15A NIKKI Bird Not available Not available Not available Lab hemoglobi n A1C, fingersti ck 2024 025 [facility], [address] [place] [address], [address], 08/11/2024 16:39:48 TSH, serum or plasma 2024 025 [facility] (Lab), [address] [place], [address], 08/22/2024 12:59:08 TSH, serum or plasma 2024 025 [facility] (Lab), [address] [place], [address], 08/22/2024 12:54:56 lipid panel, serum 2024 025 [facility] (Lab), [address] [place], [address], 08/22/2024 12:54:57 CBC w/ auto diff 2024 025 [facility] (Lab), [address] [place], [address], 08/22/2024 13:07:13 CMP, serum or plasma 2024 025 [facility] (Lab), [address] [place], [address], 08/22/2024 12:54:57 CK (creatine kinase), total, serum [address] (Lab), [address] [place], [address], 09/17/2024 12:34:56 Referral None recorded. Procedures None recorded. Surgeries None recorded. Imaging MAMMO, screening , digital, bilateral 2024 025 [facility], [address] [place], [address], 10/01/2024 04:19:56 Medication Orders Protein Nutrition al Shake oral liquid 2024 025 [facility], [address], [place], [id number], 09/03/2024 10:36:14 Trulicity 0.75 mg/0.5 mL subcutane ous pen injector 2024 025 [facility], [address] [place] [address] , [address], [place], [id number], 08/11/2024 16:24:20 Patient TargetsNo targets recorded. Patient InstructionsNo instructions recorded. Reason for Referral None Reported. Results Created Date Observation Date Name Description Value Unit Range Abnormal Flag Note LastModifiedBy Organization Detail LastModifiedTime 08/12/19 25 08/11/2024 hemog lobin A1C, finge rstic k HgbA1C 5.6% Not Available [facility]_[address], [address], 08/11/2024 16:25:07 Result Notes None recorded. Problems Name Problem SNOMED Code Status Onset Date Resolution Date Notes Provider Name and Address Organization Details Recorded Time Shea ce 58762175 Active 2024 NIKKI West [address], [address], [place], [address] , [employer] 16:22:52 Hypothyroi dism 92873101 Active 2024 NIKKI West [address], [address], [place], [address] , [employer] 5 16:25:42 Hyperlipid emia 70567683 Active 2024 NIKKI West [address], [place], [address] , [employer] 5 16:25:59 Chronic kidney disease 976641227 Active 2024 NIKKI West [address], [address], [place], [address] , [employer] 5 21:38:24 Obese 738605437 Active 2024 NIKKI West [address], [place], [address] , [employer] 5 21:38:41 Screening mammograph y Active 2024 NIKKI West [address], [place], [address] , [employer] 5 10:26:43 Renal dialysis Active 2024 NIKKI West [address], [place], [address] , [employer] 10:30:37 Peripheral neuropathy due to type 2 diabetes mellitus 6659770012321 Active 2020 Not Available [facility] 3 04:37:04 Ulcer 053212260 Active Not Available [facility] 3 04:37:04 Type 2 diabetes mellitus 73194552 Active Not Available [facility] 3 04:37:04 Diabetes mellitus 47575684 Active 2020 Not Available [facility] 3 04:37:04 Skin lesion 31892339 Active Not Available [facility] 3 04:37:04 Problem Notes None recorded. Procedures Surgical History Date Name Laterality Status Provider Name and Address Organization Details Recorded Time closure of fistula of kidney completed Carolina Gaitan RN [facility] 08/11/2024 16:12:30 Imaging Results None recorded. Procedure Notes None recorded. Medical Equipment None Reported. Allergies Allergen ID Allergen Name Allergen Category Reaction Reaction Severity Criticality Documentation Date Start Date Code Code System Note Provider Name and Address Organization Details Recorded Time 99329 capecitab ine medicatio n Not available Not available Not available 08/11/2024 98072 0 RxNorm Carolina Gaitan RN [facility], [facility] 16:02:10 Medications Name Sig Start Date Stop [...] 2 TABLETS BY MOUTH THREE TIMES DAILY 09/03 completed Not Available Not Available Not Available famotidine 40 mg tablet 08/11 completed [...] completed Not Available Not Available Not Available [employer] Ultra Test strips active Not Available Not [...] 1.5 mg/0.5 mL subcutaneou s pen injector Inject 1.5 mg every week by subcutane ous route for 30 days. 2024 active Not Available Not Available Not Avai lable Trulicity 0.75 mg/0.5 mL subcutaneou s pen injector Inject 0.75 mg every week by subcutane ous route for 30 days. 2024 active Not Available Not Available Not Avai lable Protein Nutritional Shake oral liquid Take 237 mL every day by oral route for 30 days. 2024 active Not [...] % 93 /min 18 /min 97.2 [degF] 410294. 02 g 130 mm[Hg] 80 mm[Hg] Not Available [facility] 3 04:35:52 Date Recorded Body mass index (BMI) Body height Heart rate Body weight Systolic blood pressure Diastolic blood pressure Provider Name and Address Organization Details Last Updated DateTime 1 40.7 kg/m2 170.18 cm 61 /min 494116. 02 g 130 mm[Hg] 76 mm[Hg] Not Available [facility] 3 04:35:52 Date Recorded Body height Oxygen saturation Oxygen saturation in Arterial blood by Pulse oximetry Heart rate Respiratory rate Body temperature Systolic blood pressure Diastolic blood pressure Provider Name and Address Organization Details Last Updated DateTime 1 170.18 cm 100 % 100 % 82 /min 18 /min 97.7 [degF] 171 mm[Hg] 74 mm[Hg] Not Available [facility] 3 04:35:53 Date Recorded Body height Body mass index (BMI) Body weight Body temperature Heart rate Respiratory rate Oxygen saturation Oxygen saturation in Arterial blood by Pulse oximetry Systolic blood pressure Diastolic blood pressure Provider Name and Address Organization Details Last Updated DateTime 5 165.1 cm 32.4 kg/m2 25733.5 1 g 97.6 [degF] 72 /min 16 /min 98 % 98 % 118 mm[Hg] 76 mm[Hg] Carolina Gaitan RN [facility] 5 16:14:57 Date Recorded Body height Body temperature Oxygen saturation Oxygen saturation in Arterial blood by Pulse oximetry Heart rate Systolic blood pressure Diastolic blood pressure Provider Name and Address Organization Details Last Updated DateTime 5 165.1 cm 97.8 [degF] 98 % 98 % 78 /min 136 mm[Hg] 68 mm[Hg] JORJE [place] CT [employer] [facility] [employer] 5 09:43:06 Social History Question Answer Notes LastModified by Organizat ion Details LastModified Time Tobacco Smoking Status Former Smoker Not Available [facility] 08/08/2022 04:30:32 Do You Have An Advance Directive? No [email or web address] Information not available 08/11/2024 What Is Your Level Of Alcohol Consumption? None [email or web address] Information not available 08/11/2024 Are You Blind Or Do You Have Difficulty Seeing? Yes Blind [email or web address] Information not available 08/11/2024 What Is Your Level Of Caffeine Consumption? None [email or web address] Information not available 08/11/2024 Are You Deaf Or Do You Have Serious Difficulty Hearing? Yes [email or web address] Information not available 08/11/2024 What Type Of Diet Are You Following? SPECIFIC Renal Diet --on Dialysis [email or web address] Information not available 08/11/2024 What Is The Highest Grade Or Level Of School You Have Completed Or The Highest Degree You Have Received? [id number] [email or web address] Information not available 08/11/2024 Have There Been Any Changes To Your Family Or Social Situation? No [email or web address] Information not available 08/11/2024 When Did You Quit Smoking? 16+yearssinc elastcigaret te [email or web address] Information not available 08/11/2024 Do You Use Insect Repellent Routinely? No [email or web address] Information not available 08/11/2024 Where Do You Live? [place] [email or web address] Information not available 08/11/2024 Do You Have A Medical Power Of Manager Business Process? No [email or web address] Information not available 08/11/2024 How Many Children Do You Have? 3 [email or web address] Information not available 08/11/2024 Do You Have Any Pets? Yes Cat [email or web address] Information not available 08/11/2024 What Is Your Relationship Status? Information not available 08/11/2024 Do You Have Smoke And Carbon Monoxide Detectors In Your Home? Yes [email or web address] Information not available 08/11/2024 Are You Passively Exposed To Smoke? Yes [email or web address] Information not available 08/11/2024 Are There Any Smokers In Your House? Yes [email or web address] Information not available 08/11/2024 Do You Use Any Illicit Or Recreational Drugs? No [email or web address] Information not available 08/11/2024 Do You Use Sunscreen Routinely? No [email or web address] Information not available 08/11/2024 Sex: Unknown Functional Status Question Answer Note LastModified by Organizat ion Details LastModified Time Do you have difficulty walking or climbing stairs? Yes [email or web address] Information not available 08/11/2024 Are you able to walk? YESLIMIT [email or web address] Information not available 08/11/2024 Are you able to care for yourself? Yes Information n ot available 08/11/2024 Mental Status Question Answer Note LastModified by Organization D etails LastModified Time Do you have difficulty concentrating, remembering or making decisions? Yes [email or web address] Information no t available 08/11/2024 Family History Relationship Description Onset Age of this Age Resolved Age Notes LastModified by Organization Details LastModified Time Brother Diabetes mellitus [email or web address] [id number] Not available 08/08/2022 04:31:45 Father Heart disease Diabet ic [email or web address] [id number] Not available 08/08/2022 04:31:45 Mother Heart disease Breast Cancer [email or web address] [id number] Not available 08/08/2022 04:31:45 Maternal Grandmother Malignant tumor of breast [email or web address] Not available 2024 16:07:44 Father Diabetes mellitus [email or web address] Not available 2024 16:07:55 Medical History Condition Response HYPERTHYROIDISM Y DIABETES, TYPE Y DIALYSIS Y Gynecological HistoryNo gynecological history recorded. Obstetrics History GPAL:G 0 P 0 0 0 0 Past Encounters Encounter ID Performer Location Encounter Start Date Encounter Closed Date Diagnosis/Indication Diagnosis SNOMED-CT Code Diagnosis ICD10 Code Diagnosis Note [id number] _ATHENA_M IGRATION_ DEFAULT_1 _1 , 10/14/2020 00:00:00 10/14/2020 12:29:24 [id number] _ATHENA_M IGRATION_ DEFAULT_1 _1 , 12/02/2020 00:00:00 12/04/2020 12:59:23 [id number] [facility] [address] [place] [address] 12/13/2020 00:00:00 12/15/2020 13:51:42 [id number] NIKKI West [facility]_[address] [address] 08/11/2024 15:54:04 08/11/2024 17:28:14 Type 2 diabetes mellitus 62555740 E11.21 Incontinence 62467206 R3 2 Peripheral neuropathy due to type 2 diabetes mellitus 9912167911 107 E11.42 Hypothyroidism 84440699 E03.9 Hyperlipidemia 27063547 E78.5 Chronic ki dney disease 822033816 N18.9 Obese 965821690 E66.9 [id number] NIKKI West [facility]_[address] [place] [address] 09/03/2024 09:05:48 09/03/2024 10:52:10 Screening mammography 27065720 Z12.31 Chronic ki dney disease 559669027 N18.9 Renal dialysis 777395173 Z99.2 Peripheral neuropathy due to type 2 diabetes mellitus 1972492079 107 E11.42 Incontinence 69384432 R3 2 Health Concerns Section Related Observation LastModified by Organization Detai ls LastModified Time None Recorded Concern Status LastModified by Organization Details LastModified Time None Recorded Advance Directives Directive N: Payers Encounter Date Sequence Insurance Name Policy Number Policy Olivares Covered Member ID Olivares Member ID Guarantor Name 08/11/2024 1 [facility] (MEDICARE REPLACEMENT/A DVANTAGE - POS) [id number] Zuleyka Tinoco [id number] Zuleyka Tinoco 08/11/2024 2 [facility] ON OR AFTER 12/08/20 (MEDICAID REPLACEMENT - HMO) Zuleyka Tinoco [id number] Zuleyka Tinoco 09/03/2024 1 [facility] (MEDICARE REPLACEMENT/A DVANTAGE - POS) [id number] Zuleyka Tinoco [id number] Zuleyka Tinoco 09/03/2024 2 [facility] ON OR AFTER 12/08/20 (MEDICAID REPLACEMENT - HMO) Zuleyka Tinoco [id number] Zuleyka Tinoco Notes Date Note Type Note Provider Name and Address Organization Details Recorded Time 08/11/2024 text/html Type 2 Diabetes , kidney disease , on dialysis NIKKI West [address] [address], [place], [address], [employer] 08/16/2024 21:39:03 09/03/2024 text/html no changes . falls out of bed , needs a bed with rails , adjustable to keep skin healthy NIKKI West [address], [place], [address], [employer] 09/07/2024 17:23:27 OBGyn Episode No OBEpisode recorded.
--- OUTSIDE RECORDS SUMMARY | 2024-10-01 16:01 | XMS_ITS | Clinical Summary ---
Author Organization [facility] Address [address] [place] [address] Care Team Providers Care Automobile Rental Clerk Name Role Phone Meggan Littlejohn MD Primary [...] Gastroesophageal reflux disease without esophagi tis Hypertension Encounters Date Type Department Care Team Description 08/31/2024 - 08/31/2024 4:38 PM CDT Emergency [facility] Emergency Department [address] [place] [address] Discharge Disposition: ED Dismiss - Never Arrived from Last 3 Months Immunizations Immunization Administration Dates Next Due Influenza, [...] week 06/26/2022 How often do you attend [facility] or synagogue services? Never 06/26/2022 Do you belong to any clubs o r organizations such as holiness groups, unions, fraternal or athletic groups, or [...] on file Legal Sex Female 5:36 PM BUSINESS AREA DIRECTOR Gender Identity Not on file Sexual Orientation Not on file Obstetrics History Last Filed Vital Signs Vital Sign Reading Time Taken Comments Blood Pressure 155/53 06/27/2022 1:12 PM BUSINESS AREA DIRECTOR Pulse 86 06/27/2022 1:12 PM BUSINESS AREA DIRECTOR Temperature 36.8 C (98.2 F) 06/27/2022 1:12 PM BUSINESS AREA DIRECTOR Respiratory Rate 16 06/27/2022 1:12 PM BUSINESS AREA DIRECTOR Oxygen Saturation 95% 06/27/2022 1:12 PM BUSINESS AREA DIRECTOR Inhaled Oxygen Concentration - - Weight 103.3 kg (227 lb 12.8 oz) 06/27/2022 4:33 AM BUSINESS AREA DIRECTOR Height 162.6 cm (5' 4 ) 06/25/2022 12:1 5 AM BUSINESS AREA DIRECTOR Body Mass Index 39.1 06/25/2022 12:15 AM BUSINESS AREA DIRECTOR Plan of Treatment Health Maintenance Due Date [...] history exists Breast Cancer Screening-Mammogram 09/03/2024 09/04/2023, 09/03/2023, 01/30/2017, Additional history exists DTaP/Tdap/Td Vaccine (2 - Td or Tdap) 08/01/2033 08/01/2023 Hepatitis C Screening Completed 06/25/2022 Procedures Procedure Name Priority Date/Time Associated Diagnosis Comments EGFR Routine 06/27/2022 6:53 AM BUSINESS AREA DIRECTOR HEPATITIS PANEL, ACUTE STAT 06/25/2022 9:29 AM BUSINESS AREA DIRECTOR from Last 3 Months or Most Recently Relevant to Health Maintenance Results * eGFR (06/27/2022 6:53 AM BUSINESS AREA DIRECTOR) eGFR 6 mL/min/1. 73 m2 IRIS DE [...] last reviewed 2021. Blood 06/27/2022 6:53 AM BUSINESS AREA DIRECTOR 06/27/2022 7:23 AM BUSINESS AREA DIRECTOR us Juaquin Alonzo MD LAB BLOOD ORDERABLES Final Resul t IRIS [place] AN[place] ([place]) 1 [facility] Department [place] [address] * Hepatitis panel, acute (06/25/2022 9:29 AM BUSINESS AREA DIRECTOR) Hep A IgM Nonreactive Nonreactive IRIS [place] ([place]) Comment: Interpretive Data: If Hep A IgM Ab is reported as Equivocal, a new sample should be drawn in two weeks for testing. Current interpretive data was last revised on 19. Testing performed by: [facility], [address] [place] [address], [place]., [address] Hep B core IgM Nonreactive Nonreactive Leonid DE ANDA ([place]) Comment: Interpretive Data If HepB Core IgM Ab is reported as Equivocal, a new sample should be drawn in two weeks for testing. Current interpretive data was last revised on 19. Testing performed by: [facility], [address] [place] [address], [place]., [address] Hep C Ab Nonreactive Nonreactive [facility] ([place]) Comment: Interpretive Data Nonreactive: Antibodies to [...] last revised on 2019. Testing performed by: [facility], [address] [place] [address]., [id number] HepBsAg Nonreactive Nonreactive [facility] ([place]) Comment:Testing performed by : [facility], [address] [place] [address]., [id number] Blood 06/25/2022 9:29 AM BUSINESS AREA DIRECTOR 06/25/2022 2:48 PM BUSINESS AREA DIRECTOR Dimitris Owens MD LAB MICROBIOLOGY - GENERAL OR DERABLES Final Result Performing Organization Address City/State/[facility] Co de Phone Number IRIS [place] ([place]) 1 [facility] Department [place] [address] from Last 3 Months or Most Recently Relevant to Health Maintenance Insurance [facility] MEDICARE ADVANTAGE IDPA Advance Directives For more information, please contact: [phone] * Full Code (Latest Code Status on File) Date Activated Date Inactivated Comments 06/24/2022 11:13 PM 06/28/2022 12:08 AM Care Teams Automobile Rental Clerk Relationship Specialty Start Date End Date Meggan Littlejohn MD [address] [place] [id number] PCP - General 01/01/17
--- OUTSIDE RECORDS SUMMARY | 2024-10-01 16:01 | XMS_ITS | CONTINUITY OF CARE DOCUMENT ---
Author Name pacheco bergman Address Unknown Organization [facility] Address [address] [facility] [address] [place] [address] Phone [phone] Care Team Providers Care Piercing Artist Name Role Phone Herminio BOLTON, Andrey Unavailable [...] Ruslan Vazquez MD Palpitations active [place] Ventimiglia FLIGHT PHYSICIAN Kidney Disease active Andrey Durham MD Obesity [...] In-person encounter Office Visit Andrey Durham MD [facility] Office - In-person encounter Office Visit Andrey Durham MD [facility] Palpitations - In-person encounter Office Visit Andrey Durham MD [facility] - In-person encounter Office Visit Andrey Durham MD [facility] Kidney Disease - In-person encounter Office Visit Andrey Durham MD [facility] - In-person encounter Office Visit Ruslan Vazquez MD [place] - In-person encounter Office Visit Ruslan Vazquez MD [place] - In-person encounter Office Visit Ruslan Vazquez MD [facility] - In-person encounter Office Visit Ruslan Vazquez MD [facility] - In-person encounter Office Visit Ruslan Vazquez MD [facility] - In-person encounter Office Visit Ruslan Vazquez MD [facility] - In-person encounter Office Visit Ruslan Vazquez MD [facility] Chest pain - In-person encounter Office Visit Nii Doll MD [facility] - In-person encounter Office Visit Ruslan Vazquez MD [facility] - In-person encounter Office Visit Douglas Pandya MD [facility] Family History of Hypertension:Other symptoms involving cardiovascular systemCHF - systolicAbnormal nuclear stress test - NML CORONARIES BY CATH 10/24Pulmonary HTNHypertensionSleep apnea, obstructive, severeTobacco use, quitChronic kidney diseaseAnemiaHx of pulmonary embolismObesity - In-person encounter Office Visit Ruslan Vazquez MD [facility] Office - In-person encounter Office Visit Nii Doll MD [facility] - In-person encounter Office Visit Ruslan Vazquez MD [facility] Edema - generalizedEdema - localizedDM - type 2LV systolic dysfunctionShortness of breathVenous insufficiency VITAL SIGNS Date Observation Value Provider Body Mass Index (Ratio) 29.91 kg/m2 Ignacio Durham MD blood pressure, diastolic 69 mm[Hg] mihaidulce Perez blood pressure, systolic 145 mm[Hg] [facility], oximetry 97 % [facility] pulse rate 73 /min [facility] respiratory rate E&M 12 /min [facility] weight E&M 191 [lb_av] [facility] height E&M 67 [in_i] [facility] blood pressure, cuff size regular [facility] Body Mass Index (Ratio) 31.32 kg/m2 Trevor da Ventimiglia FLIGHT PHYSICIAN blood pressure, diastolic 67 mm[Hg] Karla [facility]mRe[facility] blood pressure, systolic 145 mm[Hg] Carolyne [facility]Re[facility] oxygen saturation, oximetry 91 % [facility] pulse rate 83 /min [facility] respiratory rate E&M 12 /min [facility] weight E&M 200 [lb_av] [facility] height E&M 67 [in_i] [facility] blood pressure, cuff size regular Karla carroll Chris Body Mass Index (Ratio) 31.32 kg/m2 Ignacio Durham MD blood pressure, diastolic 72 mm[Hg] Vi radha [facility] blood pressure, systolic 146 mm[Hg] Any in [facility] oxygen saturation, oximetry 99 % [facility] pulse rate 80 /min [facility] respiratory rate E&M 12 /min [facility] weight E&M 200 [lb_av] [facility] height E&M 67 [in_i] [facility] Body Mass Index (Ratio) 29.60 kg/m2 Ignacio Durham MD blood pressure, cuff size regular Ja [facility] blood pressure, diastolic 88 mm[Hg] Ja et [...] Vicki cortez weight E&M 258 [lb_av] Vicki Rojonoryharesh er height E&M 67 [in_i] Vicki Rojokattsary [facility] Body Mass Index (Ratio) 41.03 kg/m2 Jose D Vazquez MD respiratory rate E&M 16 /min Tons Huerta blood pressure, diastolic 86 mm[Hg] To nsha Huerta blood pressure, systolic 157 mm[Hg] Ton [facility] oxygen saturation, oximetry 93 % Tons Huetra pulse rate 108 /min Tons Huerta weight [...] Verónica V oss pulse rate 83 /min Verónica Enma weight E&M 252 [lb_av] Verónica Enma height E&M 67 [in_i] Verónica Enma Body Mass Index (Ratio) 39.93 kg/m2 Jose D Vazquez MD pulse rate 89 /min Kwaku [facility] oxygen saturation, oximetry 98 % Kwaku [facility] Hospitalansleysanazalma blood pressure, diastolic 100 mm[Hg] Tramaine gironfrancisco javier Arizaalice blood pressure, systolic 210 mm[Hg] Suzanne Arizaaliec respiratory rate E&M 18 /min Kwaku [facility] weight E&M 255 [lb_av] Kwaku [facility] height E&M 67 [in_i] [facility] Body Mass Index (Ratio) 40.56 kg/m2 Krystle kirsten Abreu blood pressure, diastolic 70 mm[Hg] Justice Cat blood pressure, systolic 136 mm[Hg] Caterina Cat oxygen saturation, oximetry 95 % Gladys Cat respiratory rate E&M 18 /min Loki Cat pulse rate 92 /min Gladys au weight E&M 259 [lb_av] Gladys Espinoza alex height E&M 67 [in_i] Gladys Espinoza alex pulse rate #2 81 [facility] blood pressure, lujan tolic, second observation 80 mm[Hg] [facility] blood pressure, syst olic, second observation 137 mm[Hg] [facility] oxygen saturation, oximetry 98 % [facility] pulse rate 81 /min [facility] blood pressure, diastolic 80 mm[Hg] Shivani ctoria blood pressure, systolic 137 mm[Hg] Atilio willard d pulse rate #2 77 [facility] blood pressure, lujan tolic, second observation 75 mm[Hg] [facility] blood pressure, syst olic, second observation 130 mm[Hg] [facility] oxygen saturation, oximetry 98 % Tiarra Tebid pulse rate 77 /min Tiarra Tebid blood pressure, diastolic 75 mm[Hg] Vi ctoria Tebid blood pressure, systolic 130 mm[Hg] Atilio sudheer Tebid pulse rate #2 78 [facility] blood pressure, lujan tolic, second observation 74 mm[Hg] [facility] blood pressure, syst olic, second observation 141 mm[Hg] [facility] oxygen saturation, oximetry 98 % [facility] pulse rate 78 /min [facility] blood pressure, diastolic 74 mm[Hg] Vi [facility] Tebid blood pressure, systolic 141 mm[Hg] Atilio sudheer Tebid weight E&M 245 [lb_av] Rose Marie Garay height E&M 67 [in_i] Rose Marie Garay pulse rate #2 78 [facility] blood pressure, lujan tolic, second observation 100 mm[Hg] [facility] blood pressure, syst olic, second observation 192 mm[Hg] [facility] oxygen saturation, oximetry 98 % [facility] pulse rate 78 /min [facility] blood pressure, diastolic 100 mm[Hg] Vi ctoria Tebid blood pressure, systolic 192 mm[Hg] Atilio sudheer Tebid pulse rate #2 85 [facility] blood pressure, lujan tolic, second observation 102 mm[Hg] [facility] blood pressure, syst olic, second observation 172 mm[Hg] [facility] oxygen saturation, oximetry 98 % [facility] pulse rate 85 /min [facility] blood pressure, diastolic 102 mm[Hg] Vi ctoria Tebid blood pressure, systolic 172 mm[Hg] Atilio monroyia Tebid pulse rate #2 85 [facility] blood pressure, lujan tolic, second observation 90 mm[Hg] [facility] blood pressure, syst olic, second observation 160 mm[Hg] [facility] oxygen saturation, oximetry 98 % [facility] pulse rate 85 /min [facility] blood pressure, diastolic 90 mm[Hg] Vi ctoria Tebid blood pressure, systolic 160 mm[Hg] [facility] pulse rate #2 78 [facility] blood pressure, lujan tolic, second observation 100 mm[Hg] [facility] blood pressure, syst olic, second observation 142 mm[Hg] [facility] oxygen saturation, oximetry 98 % [facility] pulse rate 78 /min [facility] blood pressure, diastolic 100 mm[Hg] Vi [facility] Tebid blood pressure, systolic 142 mm[Hg] Atilio sudheer bid pulse rate #2 87 [facility] blood pressure, lujan tolic, second observation 103 mm[Hg] [facility] blood pressure, syst olic, second observation 163 mm[Hg] [facility] oxygen saturation, oximetry 98 % [facility] pulse rate 87 /min [facility] blood pressure, diastolic 103 mm[Hg] Vi ctoria Tebid blood pressure, systolic 163 mm[Hg] Atilio sudheer Tebid pulse rate #2 72 [facility] blood pressure, lujan tolic, second observation 75 mm[Hg] [facility] blood pressure, syst olic, second observation 128 mm[Hg] [facility] oxygen saturation, oximetry 98 % [facility] pulse rate 72 /min [facility] blood pressure, diastolic 75 mm[Hg] Vi brice [...] 3.5-5.2 0 sodium, serum 137 mmol/L [employer] [id number] 9534/01/1 0 urea nitrogen/creatinin e ratio, serum 29 [...] - 31.0 1 calcium, serum 8.5 mg/dL [facility] 8.6 - 10.2 Low 1 urea nitrogen, blood 16.0 mg/dL [facility] 8.0 - 23.0 1 blood glucose, random 144.0 mg/dL [employer] 74.0 - 99.0 High 1 red blood cell distribution width, size density 54.4 fL [facility] - 1 immature granulocytes, percentage of total cells, blood 1.0 % [facility] - 1 nucleated red blood cells as percent of blood leukocytes 0.0 % [facility] - 1 red blood cell (erythrocyte) count, per high power field 0.0 10*3/UL [facility] - 1 eosinophils as percent of blood leukocytes 3.5 % [facility] - 1 neutrophils as percent of blood leukocytes 70.0 % [facility] - 1 Absolute Neutrophils 5.8 CELLS/UL [employer] 1.5 - 7.8 1 basophils as percent of blood leukocytes 0.9 % [facility] - 1 Absolute Basophils 0.1 CELLS/UL [employer] 0.0 - 0.2 1 monocytes as percent of blood leukocytes 8.8 % [facility] - 1 Absolute Monocytes 0.7 CELLS/UL [employer] 0.2 - 1.0 1 lymphocytes as percent of blood leukocytes 15.8 % [facility] - 1 Absolute Lymphocytes 1.3 CELLS/UL [employer] 0.9 - 3.9 1 mean platelet volume 9.7 (?) [facility] - 1 platelet count 543.0 THOUSAND/U L [facility] 100.0 - 400.0 High 1 mean [...] 07/11 Andrey Durham MD VITAMIN D (ERGOCALCIFEROL) [id number] UNIT ORAL CAPSULE completed take 1 tablet [...] completed 4 times daily - 01/27 Yamilet Best FUROSEMIDE 40 MG ORAL TABLET completed once [...] once a day 11/30 - 06/11 Andrey Durhma MD SOCIAL HISTORY Date Observation Value Provider personal history of marijuana use no Andrey Durham MD drug use no Andrey Ramsay alcohol use no Andrey Ramsay passive cigarette sm nimco exposure no Andrey Durham MD smoking, year quit 1989 Andrey downs MD cigarette use yes Andrey Durham MD smoking status Former smoker Andrey contreras MD personal history of marijuana use no Carolina Ventimiglia [facility] drug use no [place] Ventimig kerry [facility] alcohol use no [place] Ventimig kerry [facility] passive cigarette sm nimco exposure no [place] Ventimiglia [facility] smoking, year quit 1989 Carolina Ve ntimiglia [facility] cigarette use yes Carolina Ventimi glia [facility] smoking status Former smoker Carolina Venti miglia [facility] passive cigarette sm nimco exposure no Andrey [...] Vazquez MD smoking, year quit 1989 Gladys Cta cigarette use yes Gladys Joel pearlon smoking status Former smoker Gladys Brown number of grandchildren Nii Doll MD U willi Doll MD social history reviewed E&M revi ewed - no changes required Nii Doll MD smoking, year quit 1989 Vicki li cigarette use yes Vicki Leon [facility] smoking status Former smoker Vicki angeleser smoking, [...] grandchildren Nii Lavon BOLTON A antonietta Neville [facility] social history reviewed E&M revi ewed - no changes required Carolina Neville [facility] smoking, year quit 1989 Gladys Cat cigarette [...] Policy type / Coverage type Monica red alliance party ID [facility] COMPLETE CARE [id number] (PPO C-SNP) [employer] insurance [email or web address] [id number] [facility] Medicaid 1 [id number] ADVANCE DIRECTIVES Name Date DISCUSSED - NO [...] 1 tablet by mouth twice a day Ellerslie Ramezcelina [facility] Cardiology:will plan tele monitor to r/o arrhythmia H er updated medication list for this problem includes: Nifedipine 90 Mg Tablet Extended Release (Nifedipine) ..... Take 1 tablet by mouth daily Aspirin 81 Mg Tablet,delayed Release (dr/ec) (Aspirin) ..... Take 1 tablet by mouth every day Carvedilol 12.5 Mg Tablet (Carvedilol) ..... Take 1 tablet by mouth twice a day [facility] Cardiology:Patient h as been having chest [...] 1 tablet by mouth twice a day [facility] Cardiology Andrey Durham MD Cardiology Andrey Durham [...] T.0 (09/07/2016) Orders: 9 9215 HIGH Complex ([id number]) M UGA (LVEF) (CPT-[id number]) Ruslan Vazquez MD Cardiology:Improved after HD. Sa [...] I mproved with ECP. Orders: E KG ([id number]) Her updated medication list for this problem [...] Cardiology:Has venou s insufficiency. Will refer to [facility] for eval. W ill hold off on [...] Cardiology: H ad JEANE workup done at [facility]. Pending CPAP. Is having issues getting CPAP [...] Cardiology: H ad JEANE workup done at [facility]. Pending CPAP. Is having issues getting CPAP machine. Will address with provider. Ruslan Vazquez MD Cardiology:Starting ECP on 05/27/17. Recurrent chest pain. This patient?s angina is disabling and in my opinion is not readily amenable to surgical intervention by PTCA or cardiac bypass because the patient's coronary anatomy is not readily amenable to such procedures. Ruslan Vazquez MD Cardiology: H er updated medication [...] potassium) ..... Take one tablet daily Ruslan aVzquez MD Cardiology:This charline ent?s angina is disabling and in my opinion is not readily amenable to surgical intervention by PTCA or cardiac bypass because the patient's coronary anatomy is not readily amenable to such procedures. Ruslan Vazquez MD Cardiology:Had JEANE w orkup done at [facility]. Pending results. Ruslan Vazquez MD Cardiology Follow [...] emds. O rders: 9 9215 HIGH Complex ([id number]) M UGA (LVEF) (CPT-07506) Sobia Doll (*) Ruslan Vazquez MD Cardiology [...] C reatinine: 1.55 (11/10/2016) BUN: 47 (11/10/2016) [facility] Cardiology Follow up :Labs: H gb: 10.2 (11/10/2016) Hct: 34.1 (11/10/2016) [facility] Cardiology Follow up :BP today: 185/96 P [...] (Losartan potassium) ..... Take one tablet daily [facility] Cardiology Follow up :Normal coronary arteries by cath on 10/29/2016. [facility] Cardiology Follow up:Sleep study is scheduled. [facility] Cardiology Follow up :Cardiac cath on 10/29/2016 showed severe pulmonary HTN. Had a recent admission for SOB and leg swelling. Improved with Bumex. Sleep study is scheduled. Recommending pulmonary consultation. [facility] Cardiology Follow up Harlan Barnes [facility] Cardiology Follow up :Had a recent admission for SOB and leg swelling. Improved with Bumex. No evidence by IVUS on 10/29/2016 of compression of the IVC or left iliac/femoral veins to explain chronic leg edema. Will obtain venous duplex. [facility] Cardiology Follow up :The pt has pulmonary HTN. Had a recent admission for SOB and leg swelling. Improved with Bumex. Recommending pulmonary consultation. [facility] Cardiology:Attributa ble to renal failure. May need to go on dialysis, sees Dr. Melendez. Ruslan Vazquez MD Cardiology:Underlyin g problem probably from renal hyperperfusion and elevated BNP for CHF, will need to evaluate for cardiac cath since her echo was abnormal as well. Ruslan Vazquez MD Cardiology:Needs cath, pending r enal function. Ruslan Vazquez MD Cardiology Ruslan Vazquez MD Cardiology Carolina patrick FLIGHT PHYSICIAN Cardiology:She has n ot had any diuretics since being discharged from the hospital. Will send her to the ER for readmit. Carolina Neville FLIGHT PHYSICIAN Cardiology:Chronic systolic CHF Ruslan Vazquez MD Cardiology Ruslan Vazquez MD Cardiology:Schedule right and left heart cath at [facility] with abnormal stress test with LV dysfunc [...] completed EKG Ruslan Vazquez MD completed SNOMED-CT: [id number] Current Medications Documented Ruslan Vazquez MD completed Ultra Tag RBCs, 1 unit Ruslan Vazquez MD completed DIONISIO Douglas MD complet ed EKG Ruslan Vazquez MD completed SNOMED-CT: [id number] 109206 Current Medications Documented Ruslan Vazquez MD completed EKG Ruslan Vazquez MD completed SNOMED-CT: 226596179 632857 Current Medications Documented Ruslan Vazquez MD completed SNOMED-CT: [id number] Physical Exam, Performed: Pulse Exam of Foot Nii Doll MD completed SNOMED-CT: 576218333 855944 Current Medications Documented Nii Doll MD completed EKG Ruslan Vazquez MD completed SNOMED-CT: [id number] 158369 Current Medications Documented Ruslan Vazquez MD completed SNOMED-CT: [id number] Physical Exam, Performed: Pulse Exam of Foot Douglas Pandya MD completed SNOMED-CT: 320612779 178356 Current Medications Documented Douglas Pandya MD completed EKG Ruslan Vazquez MD completed SNOMED-CT: 357720670 309115 Current Medications Documented Ruslan Vazquez MD completed SNOMED-CT: 61402073 Physical Exam, Performed: Pulse Exam of Foot Nii Doll MD completed SNOMED-CT: 466929577 176346 Current Medications Documented Nii Doll MD completed EKG Ruslan Vazquez MD completed SNOMED-CT: 504853737 861347 Current Medications Documented Ruslan Vazquez MD completed
--- OUTSIDE RECORDS SUMMARY | 2024-10-01 16:01 | XMS_ITS | Data Portability ---
Author Organization [facility] Address [address] [place] [address] Care Team Providers Care Cat Wagon Operator Name Role Phone CHERELLE PACHECO Scroll Shear Operator RIYA CROWE Tool Die Maker Assessment No assessment recorded. Plan of Treatment Reminders Order Date Submit Date Provider Last Modified By Organization Details Last Modified Time Details Appointments None recorded. Lab HbA1c (hemoglobi n A1c), blood 2023 024 [facility], [address] [place] [address], [address], [place], [address], 5 16:36:12 lipid panel, serum 2023 024 [facility], [address] [place] [address], [address], [place], [address], 5 10:41:51 TSH, ultra-sens itive, serum 2023 024 [facility], [address] [place] [address], [address], [place], [address], 4 11:14:55 H pylori urea breath test, co2 infrared 2023 024 [facility], [address] [place] [address], [address], [place], [address], 4 17:10:36 HbA1c (hemoglobi n A1c), blood 2023 024 [facility], [address], [address], [place], [address], 4 11:14:42 lipid panel, serum 2023 024 ASHLEE [facility], [address], [address], [place], [address], 4 11:14:40 CBC 2023 024 ASH[facility], [address], [address], [place], [address], 4 11:14:45 basic metabolic 1998 panel, serum or plasma 2023 024 ASHLEE [facility], [address], [address], [place], [address], 4 11:14:41 vitamin B12, serum 2023 024 ASHLE[facility], [address], [address], [place], [address], 4 11:14:43 TSH, ultra-sens itive, serum 2023 024 [facility], [address], [address], [place], [address], 4 11:14:44 CBC 2022 023 [facility], [address], [address], [place], [address], 3 09:49:30 basic metabolic 1998 panel, serum or plasma 2022 023 [facility], [address], [address], [place], [address], 3 09:49:31 HIV 1 + 2, meaningful use set 2021 [facility], [address], [address], [place], [address], 2 11:25:34 hepatitis C Ab, signal-to- cutoff, serum or plasma 2021 022 [facility], [address], [address], [place], [address], 2 11:25:34 HbA1c (hemoglobi n A1c), blood 2021 022 [facility], [address], [address], [place], [address], 2 11:25:34 lipid panel, serum 2021 [facility], [address], [address], [place], [address], 3 22:37:55 noninvasiv e colorectal cancer DNA + occult blood screening, QL, stool 2021 [facility] (Cologuard Orders Only), [address], [address], [place], [address], 3 11:28:56 Referral physical therapist referral - OA of the left knee 2023 024 [facility] Physical, Occupational [facility] Medicine [facility] Re[facility], [address] [place], [address], 4 18:08:41 gastroente rologist referral - Chronic Heartburn 2023 024 ASHLEE Garces MD, [address] [facility] [address], [address], [place], [address], 4 12:00:57 physical therapist referral - 68 y/o lady with visual impairment , difficulty ambulating and chronic neck and right shoulder pain. 2023 024 [facility] Physical, Occupational & Speech Medicine [facility] Re[facility], [address] [place], [address], 4 16:21:22 physical therapist referral - Please evaluate for a lift chair, hospital bed/cassie g and evaluate and treat her poor balance 2022 023 [facility] Physical, Occupational & Speech Medicine & Rehab, [address] [place], [address], 3 18:09:22 fuel agent referral - Diabetic with a foot ulcer 2021 022 [email or web address] Not available 3 17:54:53 Procedures None recorded. Surgeries None recorded. Imaging XR, knee - Pain, recent fall 2023 024 [facility] (One Call Scheduling), [address] [place], [address], 4 13:06:37 MAMMO, screening, bilateral 2023 024 [facility] (One Call Scheduling), [address] [place], [address], 4 10:37:32 XR, cervical spine - Pain 2023 024 [facility] (One Call Scheduling), [address] [place], [address], 4 13:25:03 XR, shoulder - Pain 2023 024 [facility] (One Call Scheduling), [address] [place], [address], 4 13:21:58 electromyo gram + nerve conduction study - Tingling and numbness of the L. forearm and hand after a fall [address] [facility] (Cardiology & Emg), [address], [place], [address], 4 11:14:27 XR, elbow - Tingling and numbness of the L. forearm and hand after a fall 2023 024 [facility] (One Call Scheduling), [address] [place], [address], 4 13:23:07 XR, chest, 2 view - Cough 2021 022 [facility] (One Call Scheduling), [address] [place], [address], 3 15:58:22 MAMMO, screening, bilateral 2021 022 [email or web address] [facility] (One Call Scheduling), [address] [place], [address], 3 16:23:43 Medication Orders terbinafin e HCl 1 % topical cream 2023 024 [facility], [address] [place] [address] , [address], [place], [place], [id number], 4 12:20:10 atorvastat in 40 mg tablet 2022 023 [facility], [address] [place] [address] Tosha Mclain, [address], [place], [place], [id number], 3 16:46:22 atorvastat in 40 mg tablet 2021 022 [facility], [address] [place] [address] , [address], [place], [place], [id number], 11:25:34 Patient TargetsNo targets recorded. Patient Instructions Encounter Date Encounter Id Patient Instructions Last Modified By Organization Details Last Modified Time 05/15/2022 [id number] learning about type 2 diabetes oajao Not [...] CXR oajao Not available 05/15/2022 11:49:49 10/08/2022 [id number] Labs, old and ne w orders D/C summaries from [facility] as previously ordered Cologuard as previously ordered (Declined) Bivalent COVID booster in November, (Declined) Immunization records from [facility] Atorvast[facility] PT to please evaluate for a lift chair, hospital bed/railings and evaluate and treat her poor balance Bedside commode Test blood sugars 3/day Follow up in 4-6 weeks (30 minutes) oajao Not available 10/08/2022 16:52:31 Detailed visit oajao Not available 0 10/08/2022 18:11:38 08/01/2023 [id number] mammogram: about this test oajao Not available 08/01/2023 11:54:11 tetanus and diphtheria booster: care instructions oajao Not available 08/01/2023 12:34:08 athlete's foot: care instructions oajao Not available 08/01/2023 12:20:01 neuropathic pain : care instructions oajao Not available 08/01/2023 11:59:05 Most recent consultation notes from Drs. Pacheco [facility] X[facility] PT Most recent lab results from [facility] Follow up in 6 weeks (Post EMG/NCS) oajao Not available 08/01/2023 12:37:58 Detailed visit oajao Not available 0 08/01/2023 12:38:04 11/25/2023 [id number] cervical disc disease: care instructions oajao Not [...] oajao Not available 0 11/25/2023 20:35:23 01/02/2024 [id number] knee arthritis: care instructions oajao Not available 01/02/2024 11:21:32 PT GI Lifestyle changes Most recent consultation note from Dr Crowe ER with severe chest pain Labs in 5 months Follow up in 6 months and PRN oajao Not available 01/02/2024 11:25:14 Reason for Referral Multi Sensor Operator Referral for Ulce r of toe Diabetic [...] Meggan Littlejohn, Internal Medicine, Encounter Date: 01/02/2024 Funeral Home Assistant Referral for Heartburn Chronic Hearburn Chronic Heartburn Referring Physician: Meggan Littlejohn, Internal Medicine, Encounter Date: 01/02/2024 Results Created Date Observation Date Name Description Value Unit Range Abnormal Flag Note LastModifiedBy Organization Detail LastModifiedTime 05/15/20 23 05/15/2023 COLOG UARD cologuard result CANCEL LED - ORDER D not applic able Not Available [facility] (Cologuard Orders Only) [address], [place], [address], 05/15/2023 11:28:56 08/01/19 24 08/02/2023 LIPID PANEL cholesterol, total 116 mg/dL 100-19 9 Not Available [facility] ([facility]) [address] [facility], [place], [address], 08/02/2023 11:14:40 08/01/19 24 08/02/2023 LIPID PANEL triglyceride s 100 mg/dL 0-149 Not Available [facility] ([facility]) [address] [facility], [place], [address], 08/02/2023 11:14:40 08/01/19 24 08/02/2023 LIPID PANEL HDL cholesterol 42 mg/dL >39 Not Available [facility] ([facility]) [address] [place], [address], 08/02/2023 11:14:40 08/01/19 24 08/02/2023 LIPID PANEL VLDL cholesterol melinda 19 mg/dL 5-40 Not Available [facility] ([facility]) [address] [facility], [place], [address], 08/02/2023 11:14:40 08/01/19 24 08/02/2023 LIPID PANEL LDL chol calc ([facility]) 55 mg/dL 0-99 Not Available [facility] ([facility]) [address] [place], [address], 08/02/2023 11:14:40 08/01/19 24 08/02/2023 BASIC METAB OLIC PANEL (7) glucose 116 mg/dL 70-99 above high normal Not Available [facility] ([facility]) [address] [place], [address], 08/02/2023 11:14:41 08/01/19 24 08/02/2023 BASIC METAB OLIC PANEL (7) BUN 31 mg/dL 8-27 above high normal Not Available [facility] ([facility]) [address] [place], [address], 08/02/2023 11:14:41 08/01/19 24 08/02/2023 BASIC METAB OLIC PANEL (7) creatinine 6.71 mg/dL 0.57-1 .00 above high normal Not Available [facility] ([facility]) [address] [place], [address], 08/02/2023 11:14:41 08/01/19 24 08/02/2023 BASIC METAB OLIC PANEL (7) eGFR 6 mL/mi n/1.7 3 >59 below low normal Not Available [facility] ([facility]) [address] [place], [address], 08/02/2023 11:14:41 08/01/19 24 08/02/2023 BASIC METAB OLIC PANEL (7) BUN/creatini ne ratio 5 12-28 below low normal Not Available [facility] ([facility]) [address] [place], [address], 08/02/2023 11:14:41 08/01/19 24 08/02/2023 BASIC METAB OLIC PANEL (7) sodium 142 mmol/ L 134-14 4 Not Available [facility] ([facility]) [address] [place], [address], 08/02/2023 11:14:41 08/01/19 24 08/02/2023 BASIC METAB OLIC PANEL (7) potassium 5.8 mmol/ L 3.5-5. 2 above high normal Not Available [facility] ([facility]) [address] [place], [address], 08/02/2023 11:14:41 08/01/19 24 08/02/2023 BASIC METAB OLIC PANEL (7) chloride 97 mmol/ L 96-106 Not Available [facility] ([facility]) [address] [place], [address], 08/02/2023 11:14:41 08/01/19 24 08/02/2023 BASIC METAB OLIC PANEL (7) carbon dioxide, total 27 mmol/ L 20-29 Not Available [facility] ([facility]) [address] [place], [address], 08/02/2023 11:14:41 08/01/19 24 08/02/2023 HEMOG LOBIN A1C hemoglobin A1C 6.8 % 4.8-5. 6 above high normal Predi abete s: 5.7 - 6.4 Diabe monserrat: >6.4 Glyce carlos contr ol for adult s with diabe monserrat: <7.0 Not Available [facility] ([facility]) [address] [place], [address], 08/02/2023 11:14:42 08/01/19 24 08/02/2023 VITAM IN B12 vitamin B12 349 pg/mL 232-12 45 Not Available [facility] ([facility]) [address] [place], [address], 08/02/2023 11:14:43 08/01/19 24 08/02/2023 TSH TSH 5.050 uIU/m L 0.450- 4.500 above high normal Not Available [facility] ([facility]) [address] [facility], [place], [address], 08/02/2023 11:14:44 08/01/19 24 08/02/2023 CBC, PLATE LET, NO DIFFE RENTI AL WBC 10.6 x10e3 /uL 3.4-10 .8 Not Available [facility] ([facility]) [address] [facility], [place], [address], 08/02/2023 11:14:45 08/01/19 24 08/02/2023 CBC, PLATE LET, NO DIFFE RENTI AL RBC 4.23 x10e6 /uL 3.77-5 .28 Not Available [facility] ([facility]) [address] [facility], [place], [address], 08/02/2023 11:14:45 08/01/19 24 08/02/2023 CBC, PLATE LET, NO DIFFE RENTI AL hemoglobin 12.7 g/dL 11.1-1 5.9 Not Available [facility] ([facility]) [address] [facility], [place], [address], 08/02/2023 11:14:45 08/01/19 24 08/02/2023 CBC, PLATE LET, NO DIFFE RENTI AL hematocrit 39.2 % 34.0-4 6.6 Not Available [facility] ([facility]) [address] [facility], [place], [address], 08/02/2023 11:14:45 08/01/19 24 08/02/2023 CBC, PLATE LET, NO DIFFE RENTI AL MCV 93 fL 79-97 Not Available [facility] ([facility]) [address] [facility], [place], [address], 08/02/2023 11:14:45 08/01/19 24 08/02/2023 CBC, PLATE LET, NO DIFFE RENTI AL MCH 30.0 pg 26.6-3 3.0 Not Available [facility] ([facility]) [address] [facility], [place], [address], 08/02/2023 11:14:45 08/01/19 24 08/02/2023 CBC, PLATE LET, NO DIFFE RENTI AL MCHC 32.4 g/dL 31.5-3 5.7 Not Available [facility] ([facility]) [address] [facility], [place], [address], 08/02/2023 11:14:45 08/01/19 24 08/02/2023 CBC, PLATE LET, NO DIFFE RENTI AL RDW 14.1 % 11.7-1 5.4 Not Available [facility] ([facility]) [address] [facility], [place], [address], 08/02/2023 11:14:45 08/01/19 24 08/02/2023 CBC, PLATE LET, NO DIFFE RENTI AL platelets 277 x10e3 /uL 150-45 0 Not Available [facility] ([facility]) [address] [facility], [place], [address], 08/02/2023 11:14:45 12/03/19 24 12/04/2023 TSH RFX ON ABNOR MAL TO FREE T4 TSH 2.240 uIU/m L 0.450- 4.500 Not Available [facility] ([facility]) [address] [facility], [place], [address], 12/04/2023 11:14:55 12/05/19 24 12/06/2023 H PYLOR I BREAT H TEST H pylori breath test NEGATI VE negati ve Not Available [facility] ([facility]) [address] [facility], [place], [address], 12/06/2023 17:10:36 04/26/20 22 04/26/2022 XR, humer us No observ ation record ed. oajao [facility] [address] [place], [address], 04/26/2022 15:43:16 04/26/20 22 04/26/2022 US, extre mity, nonva scula r No observ ation record ed. [facility] Orders [address] [place], [address], 04/26/2022 15:44:21 06/21/19 23 06/21/2022 CT, head, w/o contr ast No observ ation record ed. [facility] Orders [address] [place], [address], 10/08/2022 16:09:04 06/21/19 23 06/21/2022 XR, chest No observ ation record ed. [facility] Orders [address] [place], [address], 10/08/2022 16:09:03 08/27/19 24 08/27/2023 XR, shoul david No observ ation record ed. [facility] [address] [facility] [address], [place], [address], 11/25/2023 16:01:14 08/27/19 24 08/27/2023 XR, elbow No observ ation record ed. [facility] [address] [facility] [address], [place], [address], 11/25/2023 16:01:14 08/27/19 24 08/27/2023 XR, cervi melinda spine No observ ation record ed. [facility] [address] [facility] [address], [place], [address], 11/25/2023 16:01:14 09/04/19 24 09/03/2023 MAMMO , scree rene, bilat eral No observ ation record ed. [facility] [address] [place], [address], 11/25/2023 16:01:14 09/06/19 24 09/06/2023 CT, brain , w/o contr ast No observ ation record ed. [address] [facility], [place], [address], 11/25/2023 16:01:14 09/06/19 24 09/06/2023 CT, cervi melinda spine , w/o contr ast No observ ation record ed. [address] [address], [place], [address], 11/25/2023 20:41:46 09/06/19 24 09/06/2023 CT, thora cic spine , w/o contr ast No observ ation record ed. [address] [address], [place], [address], 11/25/2023 16:01:14 09/06/19 24 09/06/2023 XR, ribs, unila teral No observ ation record ed. [address] [address], [place], [address], 11/25/2023 16:01:14 09/06/19 24 09/06/2023 XR, shoul david No observ ation record ed. [address] [address], [place], [address], 11/25/2023 16:01:14 09/06/19 24 09/06/2023 XR, hip, unila teral No observ ation record ed. [address] [facility], [place], [address], 11/25/2023 16:01:14 09/06/19 24 09/06/2023 XR, elbow No observ ation record ed. [address] [address], [place], [address], 11/25/2023 16:01:14 09/06/19 24 09/06/2023 XR, humer us No observ ation record ed. [address], [address], 11/25/2023 16:01:14 09/07/19 24 09/06/2023 XR, knee No observ ation record ed. [address], [place], [address], 11/25/2023 16:01:14 09/07/19 24 09/06/2023 US, doppl er, venou s No observ ation record ed. [address], [place], [address], 11/25/2023 16:01:14 09/09/19 24 09/09/2023 MRI, brain + brain stem, w/o contr ast No observ ation record ed. [address], [place], [address], 11/25/2023 16:01:13 09/11/19 24 09/11/2023 US, carot id arter y No observ ation record ed. [address], [place], [address], 11/25/2023 16:01:13 09/11/19 24 09/11/2023 trans -thor acic echoc ardio gram (TTE) (PROC ) No observ ation record ed. [address], [place], [address], 11/25/2023 16:01:13 09/12/19 24 09/11/2023 US, duple x, carot id arter y No observ ation record ed. [address], [place], [address], 11/25/2023 16:01:13 09/12/19 24 09/11/2023 MRI, brain + brain stem, w/o contr ast No observ ation record ed. [address], [place], [address], 11/25/2023 16:01:13 09/18/19 24 09/17/2023 elect romyo gram + nerve condu ction study No observ ation record ed. [facility] [address] [facility] [address], [place], [address], 11/25/2023 16:01:13 12/03/19 24 12/03/2023 XR, knee No observ ation record ed. [facility] [address] [facility] [place], [address], 01/02/2024 11:07:22 01/09/20 24 01/07/2024 trans -thor acic echoc ardio gram (TTE) (PROC ) No observ ation record ed. [facility] [address] [facility] [address], [place], [address], 01/09/2024 19:42:48 02/19/20 24 02/19/2024 CT, head, w/o contr ast No observ ation record ed. [facility] [address] [facility] [address], [place], [address], 02/21/2024 09:10:21 05/21/20 24 05/21/2024 XR, chest No observ ation record ed. [facility] [address] [facility] [address], [place], [address], 05/22/2024 12:36:10 Result Notes None recorded. Problems Name Problem SNOMED Code Status Onset Date Resolution Date Notes Provider Name and Address Organization Details Recorded Time Nuclear senile cataract 468299616 Active 2016 Meggan Littlejohn MD Attn: Accounting ,[address] [facility], [place], [address] , [facility] 2 10:48:50 Acute bronchiti s 70385698 Active 2016 Meggan Littlejohn MD Attn: Accounting ,[address] [facility], [place], [address] , [facility] 2 10:48:50 Sleep apnea 44508664 Active 2016 Meggan Littlejohn MD Attn: Accounting ,[address] [place], [address] , [place] [facility] 2 10:48:50 Pre-surge ry testing Active 2016 Meggan Littlejohn MD Attn: Accounting ,[address] [place], [address] , [place] [facility] 2 10:48:50 Serum creatinin e outside reference range 438672507 Active 2016 Meggan Littlejohn MD Attn: Accounting ,[address] [place], [address] , [place] [facility] 2 10:48:51 Upper respirato ry infection 53621337 Active 2017 Meggan Littlejohn MD Attn: Accounting ,[address] [place], [address] , [place] [facility] 2 10:48:50 Kidney stone 16045722 Active 2017 Meggan Littlejohn MD Attn: Accounting ,[address] [place], [address] , [place] [facility] 2 10:48:50 Gastroeso phageal reflux disease 566922787 Active 2017 Meggan Littlejohn MD Attn: Accounting ,[address] [place], [address] , [place] [facility] 2 10:48:51 Serum vitamin B12 below reference range 742879234 Active 2017 Meggan Littlejohn MD Attn: Accounting ,[address] [place], [address] , [place] [facility] 2 10:48:50 Acute sinusitis 98739403 Active 2017 Meggan Littlejohn MD Attn: Accounting ,[address] [place], [address] , [place] [facility] 2 10:48:51 Chronic renal failure 73547476 Active 2017 Meggan Littlejohn MD Attn: Accounting ,[address] [facility], [place], [address] , [place] [facility] 2 10:48:51 Acute urinary tract infection 108221081 Active 2017 Meggan Littlejohn MD Attn: Accounting ,[address] [facility], [place], [address] , [place] [facility] 2 10:48:50 Tuberculo sis screening Active 2017 Meggan Littlejohn MD Attn: Accounting ,[address] [facility], [place], [address] , [place] [facility] 2 10:48:51 Hepatitis B screening Completed 201704/08/2018 Amol Morrison PA-C Attn: Accounting ,[address] [place], [address] , [place] [facility] 8 12:13:49 Hepatitis B screening required 021337271 Active 2017 Meggan Littlejohn MD Attn: Accounting ,[address] [facility], [place], [address] , [place] [facility] 2 10:48:50 Pain of right shoulder joint 50870077315 278809 Active 2017 Meggan Littlejohn MD Attn: Accounting ,[address] [facility], [place], [address] , [place] [facility] 2 10:48:50 Chronic kidney disease 172522064 Active 2018 Meggan Littlejohn MD Attn: Accounting ,[address] [facility], [place], [address] , [place] [facility] 2 10:46:45 Essential hypertens ion 42798768 Active 2019 Meggan Littlejohn MD Attn: Accounting ,[address] [place], [address] , [place] [facility] 2 10:48:50 Vitamin D below reference range 876539382 Active 2020 Meggan Littlejohn MD Attn: Accounting ,[address] [facility], [place], [address] , [place] [facility] 2 10:48:50 Restless legs 11436323 Active 2020 Meggan Littlejohn MD Attn: Accounting ,[address] [facility], [place], [address] , [place] [facility] 2 10:48:50 Candidias is 60669771 Active 2021 Meggan Littlejohn MD Attn: Accounting ,[address] [facility], [place], [address] , [place] [facility] 2 10:48:50 Irritable bowel syndrome 51106326 Active 2021 Meggan Littlejohn MD Attn: Accounting ,[address] [place], [address] , [place] [facility] 2 10:48:50 End stage renal failure on dialysis 270656170 Active 2021 Meggan Littlejohn MD Attn: Accounting ,[address] [place], [address] , [place] [facility] 2 10:48:50 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 100946441 Active 2021 Meggan Littlejohn MD Attn: Accounting ,[address] [place], [address] , [place] [facility] 2 10:48:50 Pneumonia 920650790 Active 2015 Meggan Littlejohn MD Attn: Accounting ,[address] [place], [address] , [place] [facility] 2 10:46:44 Chronic ulcer of foot 388561006 Active Meggan Littlejohn MD Attn: Accounting ,[address] [place], [address] , [place] [facility] 2 10:46:44 Type 2 diabetes mellitus with ulcer 501068584 Active Meggan Littlejohn MD Attn: Accounting ,[address] [facility], [place], [place], [address] [place] [address] , [place] [facility] 2 10:46:45 Chest pain 37510243 Active Meggan Littlejohn MD Attn: Accounting ,[address] [facility], [place], [place], [address] [place] [address] , [place] [facility] 2 10:48:50 D-dimer above reference range 067197776 Active Meggan Littlejohn MD Attn: Accounting ,[address] [facility], [place], [address] [place] [address] , [place] [facility] 2 10:48:50 Diabetes mellitus 72307007 Active Meggan Littlejohn MD Attn: Accounting ,[address] [facility], [place], [place], [address] [place] [address] , [place] [facility] 3 16:12:38 Legal blindness 59760307 Active 2021 Meggan Littlejohn MD Attn: Accounting ,[address] [facility], [place], [place], [address] [place] [address] , [place] [facility] 2 11:22:08 Referral to ophthalmo logist declined by subject 446852677 Active 2021 Meggan Littlejohn MD Attn: Accounting ,[address] [facility], [place], [place], [address] [place] [address] , [place] [facility] 2 11:50:18 Colonosco py declined 84821217332 9100 Active 2021 Meggan Littlejohn MD Attn: Accounting ,[address] [facility], [place], [place], [address] [place] [address] , [place] [facility] 2 15:35:39 Tobacco dependenc e in remission 378619116 Active 2021 Meggan Littlejohn MD Attn: Accounting ,[address] [facility], [place], [address] [place] [address] , [place] [facility] 2 15:35:51 History of SARS-CoV- 2 42667482680 1723556 Active 2022 Meggan Littlejohn MD Attn: Accounting ,[address] [facility], [place], [address] , [place] [facility] 3 16:09:29 Colon cancer screening declined 35462738723 109 Active 2022 Meggan Littlejohn MD Attn: Accounting ,[address] [facility], [place], [address] , [place] [facility] 3 16:29:14 SARS-CoV- 2 vaccinati on declined 8847787837 Active 2022 Meggan Littlejohn MD Attn: Accounting ,[address] [facility], [place], [address] , [place] [facility] 16:29:15 Ulnar neuropath y of left arm 11412653536 9107 Active 2023 Meggan Littlejohn MD Attn: Accounting ,[address] [facility], [place], [address] , [place] [facility] 4 15:46:15 Chronic cerebral ischemia 757148957 Active 2023 Meggan Littlejohn MD Attn: Accounting ,[address] [facility], [place], [address] , [place] [facility] 4 16:20:44 Recurrent falls 093685768 Active 2023 Meggan Littlejohn MD Attn: Accounting ,[address] [facility], [place], [address] , [place] [facility] 4 20:32:26 Osteoarth ritis of joint of right shoulder region 50927968083 9100 Active 2023 Meggan Littlejohn MD Attn: Accounting ,[address] [facility], [place], [address] , [place] [facility] 4 20:35:46 Osteoarth ritis of left hip joint 27618449196 9108 Active 2023 Meggan Littlejohn MD Attn: Accounting ,[address] [facility], [place], [address] , [place] [facility] 4 20:39:08 Heartburn 67287784 Active 2023 Meggan Littlejohn MD Attn: Accounting ,[address] [facility], [place], [address] , [place] [facility] 20:39:17 Degenerat ion of cervical intervert ebral disc 72926040 Active 2023 Meggan Littlejohn MD Attn: Accounting ,[address] [facility], [place], [address] , [place] [facility] 4 20:46:07 History of thyroid disorder 589156455 Active 2023 Meggan Littlejohn MD Attn: Accounting ,[address] [facility], [place], [address] , [place] [facility] 4 20:46:11 Folliculi tis 97672711 Active Meggan Littlejohn MD Attn: Accounting ,[address] [facility], [place], [address] , [place] [facility] 2 10:48:50 Hallux valgus 139209729 Active Meggan Littlejohn MD Attn: Accounting ,[address] [facility], [place], [address] , [place] [facility] 2 10:48:50 Type 2 diabetes mellitus 85175635 Active Meggan Littlejohn MD Attn: Accounting ,[address] [facility], [place], [address] , [place] [facility] 10:48:50 Obesity 664919286 Active Not Available [facility] 2 09:25:20 Hypertens mayra disorder 65070882 Active Meggan Littlejohn MD Attn: Accounting ,[address] [facility], [place], [address] , [place] [facility] 10:46:45 Hyperlipi demia 03699884 Active Meggan Littlejohn MD Attn: Accounting ,[address] [facility], [place], [address] , [place] [facility] 10:48:51 Congestiv e heart failure 04618072 Active Not Available [facility] 2 09:25:21 Anxiety 99052979 Active Meggan Littlejohn MD Attn: Accounting ,[address] [place], [place], [address] [place] [address] , [place] [facility] 2 10:48:51 Mammograp hy abnormal 243589352 Active Meggan Littlejohn MD Attn: Accounting ,[address] [place], [address] [place] [address] , [place] [facility] 10:48:50 Constipat ion 96162841 Active Meggan Littlejohn MD Attn: Accounting ,[address] [place], [address] [place] [address] , [place] [facility] 2 10:48:51 Edema of lower extremity 126735611 Active Meggan Littlejohn MD Attn: Accounting ,[address] [place], [address] [place] [address] , [place] [facility] 2 10:48:50 Administr ation of pneumococ melinda vaccine Active 2015 Meggan Littlejohn MD Attn: Accounting ,[address] [place], [place], [address] [place] [address] , [place] [facility] 2 10:48:50 Pain in bilateral legs 38123688784 421840 Active 2015 Meggan Littlejohn MD Attn: Accounting ,[address] [place], [address] [place] [address] , [place] [facility] 2 10:48:50 Contact dermatiti s 85496224 Active 2016 Meggan Littlejohn MD Attn: Accounting ,[address] [place], [address] [place] [address] , [place] [facility] 10:48:50 Hypothyro idism 00702654 Active 2016 Meggan Littlejohn MD Attn: Accounting ,[address] [place], [address] , [place] [facility] 10:48:51 Pulmonary hypertens ion 00099026 Active 2016 Meggan Littlejohn MD Attn: Accounting ,[address] [facility], [place], [address] , [place] [facility] 2 10:46:44 Bilateral arthritis of knees 65793064605 55250 Active 2016 Meggan Littlejohn MD Attn: Accounting ,[address] [facility], [place], [address] , [place] [facility] 2 10:48:50 Otitis media 27644801 Active 2016 Meggan Littlejohn MD Attn: Accounting ,[address] [facility], [place], [address] , [facility] - [facility] 2 10:48:50 Anemia 939437953 Active 2016 Meggan Littlejohn MD Attn: Accounting ,[address] [place], [address] , [facility] - [facility] 2 10:48:50 Screening for malignant neoplasm of breast Active 2016 Meggan Littlejohn MD Attn: Accounting ,[address] [facility], [place], [address] , [facility] - [facility] 2 10:48:51 Administr ation of influenza vaccine Active 2016 Meggan Littlejohn MD Attn: Accounting ,[address] [place], [address] , [facility] - [facility] 2 10:48:51 Flank pain 563854433 Active 2016 Meggan Littlejohn MD Attn: Accounting ,[address] [facility], [place], [address] , [place] [facility] 2 10:48:50 Notes:Some problems listed i n Documents: #[id number], #[id number], #[id number], #[id number], #[id number], #[id number] could not be added to this patient's chart. Please review these documents and add these problems to the patient's chart manually as needed. Problem Notes None recorded. Procedures Surgical History Date Name Laterality Status Provider Name and Address Organization Details Recorded Time 4 Diabetic Foot Exam completed Meggan Littlejohn MD Attn: Accounting,[address] , [place], [address], [place] [facility] 08/01/2023 12:21:21 0 extraction of cataract completed Margaret [facility] 02/11/2020 11:53:25 9 procedure completed Margaret Hobbs [facility] 04/09/2019 12:01:52 Imaging Results Imaging Date Name Status LastModified by Organization Details LastModified Time 04/26/2022 XR, humerus completed [facility] [address] [place], [address], 04/26/2022 15:43:16 04/26/2022 US, extremity, nonvascular completed [facility] [address] [place], [address], 04/26/2022 15:44:21 06/21/2022 CT, head, w/o contrast completed [facility] [address] [place], [address], 10/08/2022 16:09:04 06/21/2022 XR, chest completed [facility] [address] [place], [address], 10/08/2022 16:09:03 08/27/2023 XR, shoulder completed [address], [address], 11/25/2023 16:01:14 08/27/2023 XR, elbow completed [address], [address], 11/25/2023 16:01:14 08/27/2023 XR, cervical spine completed [address], [address], 11/25/2023 16:01:14 09/03/2023 MAMMO, screening, bilateral completed [facility] [address] [facility], [place], [address], 11/25/2023 16:01:14 09/06/2023 CT, brain, w/o contrast completed [address], [address], 11/25/2023 16:01:14 09/06/2023 CT, cervical spine, w/o contrast completed [address], [address], 11/25/2023 20:41:46 09/06/2023 CT, thoracic spine, w/o contrast completed [address], [address], 11/25/2023 16:01:14 09/06/2023 XR, ribs, unilateral completed [address], [address], 11/25/2023 16:01:14 09/06/2023 XR, shoulder completed [address], [address], 11/25/2023 16:01:14 09/06/2023 XR, hip, unilateral completed [address], [address], 11/25/2023 16:01:14 09/06/2023 XR, elbow completed [address], [address], 11/25/2023 16:01:14 09/06/2023 XR, humerus completed [address], [address], 11/25/2023 16:01:14 09/06/2023 XR, knee completed [address] [address], [place], [address], 11/25/2023 16:01:14 09/06/2023 US, doppler, venous completed [address], [place], [address], 11/25/2023 16:01:14 09/09/2023 MRI, brain + brain stem, w/o contrast completed [address] [address], [place], [address], 11/25/2023 16:01:13 09/11/2023 US, carotid artery completed [address] [address], [place], [address], 11/25/2023 16:01:13 09/11/2023 trans-thoracic echocardiogram (TTE) (PROC) completed [address] [address], [place], [address], 11/25/2023 16:01:13 09/11/2023 US, duplex, carotid artery completed [address] [address], [place], [address], 11/25/2023 16:01:13 09/11/2023 MRI, brain + brain stem, w/o contrast completed [address], [address], 11/25/2023 16:01:13 09/17/2023 electromyogram + nerve conduction study completed [address], [address], 11/25/2023 16:01:13 12/03/2023 XR, knee completed [facility] [address] [place], [address], 01/02/2024 11:07:22 01/07/2024 trans-thoracic echocardiogram (TTE) (PROC) completed [facility] [address], [place], [address], 01/09/2024 19:42:48 02/19/2024 CT, head, w/o contrast completed [address], [address], 02/21/2024 09:10:21 05/21/2024 XR, chest completed [address], [place], [address], 05/22/2024 12:36:10 Procedure Notes None recorded. Medical Equipment None Reported. Allergies Allergen ID Allergen Name Allergen Category Reaction Reaction Severity Criticality Documentation Date Start Date Code Code System Note Provider Name and Address Organization Details Recorded Time 376932 hydrochlo rothiazid e medicatio n other Not available Not available 05/15/2022 5487 RxNorm Not Available Not Available Not Available 13758 captopril / hydrochlo rothiazid e medicatio n hives Not available Not available 09/27/2015 96096 7 RxNorm Not Available Not Available Not [...] Updated DateTime 2 170.18 cm 35.2 kg/m2 561061. 28 g 82 /min 98 % 98 % 16 /min 150 mm[Hg] 80 mm[Hg] Sheryl Nascimento MA [facility] 2 10:44:31 Date Recorded Body height Body mass index (BMI) Body weight Respiratory rate Heart rate Oxygen saturation Oxygen saturation in Arterial blood by Pulse oximetry Systolic blood pressure Diastolic blood pressure Provider Name and Address Organization Details Last Updated DateTime 3 170.18 cm 32.4 kg/m2 70945.0 5 g 16 /min 80 /min 99 % 99 % 136 mm[Hg] 70 mm[Hg] Sheryl Nascimento [facility] 3 16:03:20 Date Recorded Body height Body mass index (BMI) Body weight Body temperature Oxygen saturation Oxygen saturation in Arterial blood by Pulse oximetry Heart rate Respiratory rate Systolic blood pressure Diastolic blood pressure Provider Name and Address Organization Details Last Updated DateTime 4 170.18 cm 30.1 kg/m2 95644.7 4 g 97.6 [degF] 100 % 100 % 80 /min 18 /min 156 mm[Hg] 70 mm[Hg] Sheryl Nascimento MA [facility] 4 11:32:39 Date Recorded Body height Body mass index (BMI) Body weight Oxygen saturation Oxygen saturation in Arterial blood by Pulse oximetry Heart rate Body temperature Systolic blood pressure Diastolic blood pressure Provider Name and Address Organization Details Last Updated DateTime 4 170.18 cm 31.5 kg/m2 53037.0 7 g 98 % 98 % 72 /min 97.8 [degF] 114 mm[Hg] 50 mm[Hg] Sheryl Nascimento [facility] 4 15:38:26 Date Recorded Body height Body mass index (BMI) Body weight Heart rate Respiratory rate Systolic blood pressure Diastolic blood pressure Provider Name and Address Organization Details Last Updated DateTime 4 170.18 cm 32.9 kg/m2 55746.6 8 g 74 /min 16 /min 134 mm[Hg] 70 mm[Hg] Sheryl Nascimento [facility] 4 10:47:44 Social History Question Answer Notes LastModified by Organizat ion Details LastModified Time Tobacco Smoking Status Former Smoker 1989 Meggan Littlejohn MD Attn: Accounting,[address] [place], [address], [facility] 05/15/2022 11:07:32 Do You Have [...] Anxious, Or Unable To Sleep At Night)? [id number] Information not available 09/20/2020 Do You Use [...] completed Meggan Littlejohn MD Attn: Accounting,[address] [place], [address], [facility] 05/15/2022 10:46:19 Influenza, split virus, quadrivalent, PF 6 completed Meggan Littlejohn MD Attn: Accounting,[address] [place], [address], [facility] 05/15/2022 10:46:19 pneumococcal polysaccharide PPV23 6 completed Not Available [facility] 06/27/2019 02:39:52 influenza, unspecified formulation 3 completed Meggan Littlejohn MD Attn: Accounting,[address] [place], [address], [facility] 08/01/2023 11:45:05 Influenza, split virus, quadrivalent, preservative 7 completed Not Available [facility] 06/27/2019 02:34:00 Influenza, split virus, quadrivalent, preservative 9 completed Not Available [facility] 06/27/2019 02:38:43 Influenza, split virus, quadrivalent, preservative 0 completed Margaret Hobbs [place] [facility] 04/14/2020 10:36:24 Influenza, split virus, quadrivalent, preservative 1 completed Maggy Brooks [place], [place] [facility] 05/25/2021 10:48:19 Pneumococcal conjugate PCV20, polysaccharide UFQ216 conjugate, adjuvant, PF 3 completed Sheryl Nascimento [place] [facility] 10/09/2022 10:45:27 Tdap 4 completed Sheryl Nascimento [place] [facility] 08/01/2023 16:57:15 Past Encounters Encounter ID Performer Location Encounter Start Date Encounter Closed Date Diagnosis/Indication Diagnosis SNOMED-CT Code Diagnosis ICD10 Code Diagnosis Note [id number] [facility] ([facility]) [address] [place] [address] 09/27/2015 12:10:49 09/27/2015 14:34:15 Folliculitis 46211715 L73.9 Hallux valgus 754691726 M20.10 Type 2 meme betes mellitus 64693664 E11.9 Obesity 465230241 E66.9 Hypertensive disorder 38 992950 I10 Hyperlipidemia 91748653 E78.5 [id number] [facility] [address] [place] [address] 10/26/2015 10:12:37 10/26/2015 11:28:01 Normal grief reaction 579054854 F43.20 Hyperlipidemia 77369480 E78.5 Hypertensive disorder 38 284729 I10 Obesity 967957206 E66.9 Type 2 meme betes mellitus 45067223 E11.9 [id number] [facility]) [address] [place] [address] 0 12/21/2015 10:37:47 12/21/2015 11:20:29 Congestive heart failure 40196253 I50.9 Hyperlipidemia 37834213 E78.5 Hypertensive disorder 38 063150 I10 Obesity 210767299 E66.9 Type 2 meme betes mellitus 74930888 E11.9 Screening for malignant neoplasm of breast 082916532 Z12.31 Anxiety 36575818 F41.9 [id number] [facility] [address] [place] [address] 02/22/2016 09:29:57 02/22/2016 10:53:31 Folliculitis 50006156 L73.9 Congestive heart failure 05313304 I50.9 Obesity 068027488 E66.9 Type 2 meme betes mellitus 12975460 E11.9 Constipation 62972027 K5 9.00 [id number] [facility] [address] [place] [address] 0 03/28/2016 12:29:31 03/28/2016 13:28:39 Folliculitis 70084341 L73.9 Administra tion of pneumococcal vaccine 13162533 Z23 [id number] [facility] [address] [place] [address] 07/17/2016 14:07:59 07/17/2016 14:54:53 Edema of lower extremity 061019997 R60.0 Contact dermatitis 74383 004 L25.9 Type 2 meme betes mellitus 94204624 E11.9 Anxiety 07978686 F41.9 Hyperlipidemia 74249468 E78.5 Hypertensive disorder 38 669756 I10 Obesity 736252526 E66.9 Congestive heart failure 01762352 I50.9 [id number] [facility]) [address] [place] [address] 0 10/09/2016 10:14:57 10/10/2016 09:26:01 Congestive heart failure 75362417 I50.9 Type 2 meme betes mellitus 64120824 E11.9 Obesity 234862025 E66.9 Hyperlipidemia 34400186 E78.5 Hypothyroidism 75213501 E03.9 [id number] [facility] ([facility]) [address] [place] [address] 0 11/01/2016 10:54:39 11/01/2016 11:38:04 Congestive heart failure 49137802 I50.9 Type 2 meme betes mellitus 07871154 E11.9 Obesity 399042935 E66.9 Hypertensive disorder 38 649955 I10 Hyperlipidemia 74238168 E78.5 Anxiety 02210341 F41.9 Edema of l ower extremity 933182181 R60.0 Hypothyroidism 30722897 E03.9 [id number] [facility] ([facility]) [address] [place] [address] 12/07/2016 09:20:51 12/07/2016 16:52:10 Pulmonary hypertension 96172974 I27.2 Hypothyroidism 34664306 E03.9 Congestive heart failure 21266457 I50.9 Type 2 meme betes mellitus 83148702 E11.9 Obesity 949026987 E66.9 Hypertensive disorder 38 995384 I10 Hyperlipidemia 44744076 E78.5 Bilateral arthritis of knees 4089437097 029589 M13.861 Otitis media 99799266 H6 6.92 [id number] [facility] ([facility]) [address] [place] [address] 0 01/03/2017 11:31:13 01/03/2017 12:22:25 Type 2 diabetes mellitus 60547249 E11.9 Congestive heart failure 83073790 I50.9 Hypertensive disorder 38 412804 I10 Obesity 227212462 E66.9 Hypothyroidism 37302277 E03.9 Edema of l ower extremity 458857833 R60.0 Anxiety 78024575 F41.9 Hyperlipidemia 57191046 E78.5 Constipation 33133665 K5 9.00 Folliculitis 03728772 L7 3.9 Anemia 781307566 D64.9 Screening for malignant neoplasm of breast 710927976 Z12.31 [id number] [facility]) [address] [place] [address] 0 01/31/2017 10:49:52 01/31/2017 11:48:03 Hypothyroidism 97986097 E03.9 Anemia 807427234 D64.9 Pulmonary hypertension 47004158 I27.2 Anxiety 27494406 F41.9 Hyperlipidemia 56475615 E78.5 Hypertensive disorder 38 337436 I10 Congestive heart failure 51763548 I50.9 Type 2 meme betes mellitus 50076486 E11.9 [id number] [facility]) [address] [place] [address] 02/28/2017 11:16:22 03/04/2017 11:39:30 Congestive heart failure 00939467 I50.9 Type 2 meme betes mellitus 29580955 E11.9 Obesity 613705715 E66.9 Hypertensive disorder 38 910503 I10 Hyperlipidemia 55545257 E78.5 Anxiety 93592066 F41.9 Edema of l ower extremity 500545554 R60.0 Administra tion of influenza vaccine 32028041 Z23 [id number] [facility]) [address] [place] [address] 0 03/06/2017 10:03:08 03/06/2017 11:02:58 Flank pain 192562862 R10.9 Pulmonary hypertension 48890018 I27.2 Hypothyroidism 31303067 E03.9 Hyperlipidemia 92933131 E78.5 Obesity 365565209 E66.9 Congestive heart failure 08766721 I50.9 Type 2 meme betes mellitus 82127030 E11.9 [id number] [facility] ([facility]) [address] [place] [address] 0 05/07/2017 09:17:46 05/07/2017 10:15:11 Acute bronchitis 65327843 J20.9 Type 2 meme betes mellitus 48637782 E11.42 Congestive heart failure 52863784 I50.9 Obesity 376767552 E66.9 Sleep apnea 74776473 G47 .30 Pulmonary hypertension 50963246 I27.20 Hypothyroidism 01267851 E03.9 Hyperlipidemia 90751258 E78.5 Hypertensive disorder 38 301588 I10 [id number] [facility] ([facility]) [address] [place] [address] 48[address] 0 05/29/2017 11:37:07 05/29/2017 12:37:36 Pre-surgery testing 757684746 Z01.89 Sleep apnea 91652386 G47 .30 Pulmonary hypertension 88776089 I27.20 Hypothyroidism 63614705 E03.9 Hyperlipidemia 13698753 E78.5 Congestive heart failure 28432371 I50.9 Type 2 meme betes mellitus 81684860 E11.42 [id number] [facility]) [address] [place] [address] 0 07/09/2017 11:59:20 07/09/2017 12:54:52 Upper respiratory infection 70769584 J06.9 Type 2 meme betes mellitus 47714255 E11.42 [id number] [facility] [address] [place] [address] 26[address] 0 08/14/2017 09:42:41 08/14/2017 10:32:48 Gastroesophageal reflux disease 759740612 K21.9 Sleep apnea 26974474 G47 .30 [id number] [facility]) [address] [place] [address] 04272[address]773 0 09/17/2017 11:02:56 09/17/2017 14:34:21 Serum vitamin B12 below reference range 105152828 R79.89 Acute sinusitis 05724867 J01.90 Type 2 meme betes mellitus 61701337 E11.42 Acute bronchitis 0911121 2 J20.9 Sleep apnea 18912067 G47 .30 Pulmonary hypertension 89485677 I27.20 Hypothyroidism 97003204 E03.9 Hyperlipidemia 84044757 E78.5 Obesity 370167110 E66.9 [id number] [facility]) [address] [place] [address] 947[address] 0 12/03/2017 10:47:40 12/04/2017 23:44:27 Acute urinary tract infection 732329825 N39.0 Chronic renal failure 90 111122 N18.9 Congestive heart failure 67178696 I50.9 Type 2 meme betes mellitus 18085534 E11.42 Obesity 544885369 E66.9 Hypertensive disorder 38 590390 I10 Hyperlipidemia 00043186 E78.5 Hypothyroidism 51190177 E03.9 Pulmonary hypertension 60665579 I27.20 Anemia 318483718 D64.9 [id number] [facility]) [address] [place] [address] 73099-267 0 12/03/2017 11:00:35 12/03/2017 12:02:12 Anemia 132452034 D64.9 Type 2 meme betes mellitus 27030138 E11.42 Acute urin katelynn tract infection 928807840 N39.0 [id number] [facility] ([facility]) [address] [place] [address] 18833-254 0 04/08/2018 10:46:30 04/08/2018 12:59:56 Tuberculosis screening 086379045 Z11.1 Hepatitis B screening required 687052834 Z78.9 Pain of ri ght shoulder joint 3243944913 7861379 M25.511 Anemia 024381392 D64.9 Type 2 meme betes mellitus 46189745 E11.42 Serum ben min B12 below reference range 695345330 R79.89 Gastroesop hageal reflux disease 971636702 K21.9 Kidney stone 27079953 N2 0.0 Sleep apnea 12701641 G47 .30 Pulmonary hypertension 93139505 I27.20 Hypothyroidism 20565645 E03.9 Hyperlipidemia 63461377 E78.5 Obesity 695696680 E66.9 Congestive heart failure 51772979 I50.9 Hypertensive disorder 38 080273 I10 [id number] [facility] ([facility]) [address] [place] [address] 60832-426 0 10/09/2018 10:28:45 10/09/2018 11:15:53 Gastroesophageal reflux disease 803970573 K21.9 Sleep apnea 72141625 G47 .30 Anemia 929712661 D64.9 Pulmonary hypertension 34879011 I27.20 Congestive heart failure 75631705 I50.9 Type 2 meme betes mellitus 48601058 E11.42 Chronic renal failure 90 723051 N18.6 Serum ben min B12 below reference range 798686299 R79.89 Bilateral arthritis of knees 0500148098 531345 M13.861 Hypothyroidism 76475675 E03.9 Hyperlipidemia 45193454 E78.5 Constipation 98050072 K5 9.00 Hypertensive disorder 38 398580 I10 Obesity 774544466 E66.9 [id number] [facility] ([facility]) [address] [place] [address] 66158-710 0 01/27/2019 10:44:56 01/28/2019 09:13:39 Screening for malignant neoplasm of breast 631912190 Z12.31 Chronic renal failure 90 860026 N18.6 Gastroesop hageal reflux disease 598289722 K21.9 Sleep apnea 38243414 G47 .30 Pulmonary hypertension 57088514 I27.20 Hypothyroidism 41358591 E03.9 Hyperlipidemia 25098063 E78.5 Type 2 meme betes mellitus 97715830 E11.42 Congestive heart failure 20640128 I50.9 Hypertensive disorder 38 546650 I10 Obesity 196269658 E66.9 [id number] [facility] ([facility]) [address] [place] [address] 20712[address]114 0 04/09/2019 11:26:39 04/09/2019 12:53:47 Chronic kidney disease 671215343 N18.9 Dialysis- M,W,F Tuberculos is screening 818126660 Z11.1 Screening for malignant neoplasm of breast 341583445 Z12.31 Administra tion of influenza vaccine 26874397 Z23 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 Sutures intact. Congestive heart failure 69286357 I50.9 Serum ben min B12 below reference range 296773345 R79.89 Gastroesop hageal reflux disease 492101258 K21.9 Sleep apnea 26096640 G47 .30 Pulmonary hypertension 29211914 I27.20 Bilateral arthritis of knees 5406983593 248968 M13.861 Hypothyroidism 95482692 E03.9 Hypertensive disorder 38 496613 I10 Type 2 meme betes mellitus 34357832 E11.42 [id number] [facility] ([facility]) [address] [place] [address] 43170-387 0 04/30/2019 11:08:38 04/30/2019 12:00:44 Congestive heart failure 41660898 I50.9 Gastroesop hageal reflux disease 743039957 K21.9 Anemia 258793594 D64.9 Bilateral arthritis of knees 4768449690 765314 M13.861 Chronic renal failure 90 627644 N18.6 Hyperlipidemia 65477102 E78.5 Hypothyroidism 44692906 E03.9 Obesity 373802401 E66.9 Pulmonary hypertension 25870672 I27.20 Serum ben min B12 below reference range 323758328 R79.89 Sleep apnea 55315849 G47 .30 Type 2 meme betes mellitus 43542958 E11.42 [id number] NESHA Leija (Adult Med) [address] [place] [address] [phone] 0 06/22/2019 13:51:13 06/23/2019 12:44:00 Type 2 diabetes mellitus 40550057 E11.21 Advised to stop aspirin, for at least 5 days prior to eye operation. , DR. Bart. Jhon Brooks office informed. No medical contraindi cation for operation. # . End stage renal failure on dialysis 116768319 Z99.2 On chronic renal dialysis. Bilateral cataracts 9572 2003 H26.9 Ok for eye operation, but has to stop aspirin 5 days prior to surgery. [id number] WILLI West (Adult Med) [address] [place] [address] [phone] 02/11/2020 08:44:37 02/11/2020 13:28:18 Type 2 diabetes mellitus 03486417 E11.42 Pulmonary hypertension 01017290 I27.20 Anxiety 60666793 F41.9 Bilateral arthritis of knees 8007634551 869016 M13.861 Chronic ki dney disease 917473128 N18.9 Dialysis- M,W,F Congestive heart failure 76555795 I50.9 Edema of l ower extremity 145552362 R60.0 Essential hypertension 54282144 I10 Gastroesop hageal reflux disease 345379699 K21.9 Hyperlipidemia 37343544 E78.5 Hypothyroidism 88473139 E03.9 Obesity 705580208 E66.9 Pain in bi lateral legs 2493229423 2066174 M79.605 Serum ben min B12 below reference range 099488841 R79.89 Sleep apnea 28771908 G47 .30 [id number] WILLI West (Adult Med) [address] [place] [address] [phone] 0 04/14/2020 08:09:07 04/14/2020 10:42:17 Administration of influenza vaccine 64664160 Z23 Type 2 meme betes mellitus 97461074 E11.42 Screening for malignant neoplasm of breast 546280959 Z12.31 Gastroesop hageal reflux disease 390117062 K21.9 Anxiety 94990246 F41.9 Essential hypertension 68974231 I10 Hyperlipidemia 18044016 E78.5 Hypothyroidism 49087628 E03.9 Pulmonary hypertension 82820525 I27.20 Sleep apnea 14139354 G47 .30 [id number] WILLI West (Adult Med) [address] [place] [address] 31812-546 0 06/14/2020 09:31:52 06/14/2020 12:07:27 Essential hypertension 08369130 I10 Gastroesop hageal reflux disease 064942711 K21.9 Hyperlipidemia 49668300 E78.5 Hypothyroidism 73457281 E03.9 Pulmonary hypertension 68548900 I27.20 Serum ben min B12 below reference range 012520618 R79.89 Sleep apnea 74698173 G47 .30 Type 2 meme betes mellitus 25912074 E11.42 Anemia 888361975 D64.9 Anxiety 85085415 F41.9 Chronic ki dney disease 748231416 N18.9 Dialysis- M,W,F Congestive heart failure 25950725 I50.9 Constipation 52215903 K5 9.00 Hallux valgus 526130021 M20.10 Hypertensive disorder 38 413445 I10 [id number] WILLI West (Adult Med) [address] [place] [address] 31170-149 0 06/28/2020 16:03:02 06/29/2020 11:29:24 Screening mammography 38373082 Z12.31 Tuberculos is screening 935599277 Z11.1 Pulmonary hypertension 38769425 I27.20 [id number] WILLI West (Adult Med) [address] [place] [address] 59843-883 0 07/14/2020 08:57:30 07/21/2020 03:47:41 [id number] WILLI West (Adult Med) [address] [place] [address] 11937-901 0 08/09/2020 08:15:04 08/09/2020 10:30:02 Anxiety 10297115 F41.9 Bilateral arthritis of knees 9243327615 532863 M13.861 Chronic renal failure 90 774380 N18.6 Congestive heart failure 17325383 I50.9 Essential hypertension 89353094 I10 Gastroesop hageal reflux disease 646805078 K21.9 Hyperlipidemia 86954179 E78.5 Hypothyroidism 54409063 E03.9 Obesity 598197450 E66.9 Pulmonary hypertension 01155867 I27.20 Serum ben min B12 below reference range 549779156 R79.89 Sleep apnea 27459017 G47 .30 Type 2 meme betes mellitus 46897597 E11.42 Anemia 245076589 D64.9 Vitamin D below reference range 925042130 E55.9 [id number] WILLI West (Adult Med) [address] [place] [address] 71082-275 0 09/20/2020 08:40:59 09/22/2020 11:17:11 Anemia 134761681 D64.9 Congestive heart failure 31227074 I50.9 Vitamin D below reference range 257876719 E55.9 Essential hypertension 78045135 I10 Gastroesop hageal reflux disease 584570890 K21.9 Hyperlipidemia 15705088 E78.5 Hypertensive disorder 38 449138 I10 Hypothyroidism 86443306 E03.9 Pulmonary hypertension 27677918 I27.20 Serum ben min B12 below reference range 807658229 R79.89 Sleep apnea 71403429 G47 .30 Type 2 meme betes mellitus 11594402 E11.42 Anxiety 70922856 F41.9 Bilateral arthritis of knees 6201384559 980475 M13.861 Chronic renal failure 90 880948 N18.6 Restless legs 33978259 G 25.81 [id number] NESHA Nina (Adult Med) [address] [place] [address] 75728-515 0 05/25/2021 09:42:59 05/25/2021 13:14:36 Administration of influenza vaccine 75318767 Z23 [id number] WILLI West (Adult Med) [address] [place] [address] 44954-001 0 07/20/2021 11:59:05 07/21/2021 12:31:34 Congestive heart failure 20937852 I50.9 Vitamin D below reference range 968729338 E55.9 Essential hypertension 18464909 I10 Gastroesop hageal reflux disease 231705012 K21.9 Hallux valgus 694908771 M20.10 Hyperlipidemia 91524169 E78.5 Hypothyroidism 70960170 E03.9 Pulmonary hypertension 68425689 I27.20 Restless legs 23577168 G 25.81 Serum ben min B12 below reference range 218059748 R79.89 Sleep apnea 49526284 G47 .30 Type 2 meme betes mellitus 08992566 E11.42 E11.621 Candidiasis 81225247 B37 .9 Irritable bowel syndrome 49359747 K58.9 Anemia 308467405 D64.9 Anxiety 97769753 F41.9 Bilateral arthritis of knees 6587238326 858923 M13.861 Chronic ki dney disease 842196412 N18.9 Dialysis- M,W,F [id number] MD Cisco Terrell (Adult Med) [address] [place] [address] [phone] 0 05/15/2022 10:25:04 05/16/2022 10:26:24 Screening for malignant neoplasm of breast 567335663 Z12.39 Administra tion of diphtheria, pertussis, and tetanus vaccine 917305743 Z23 General ex amination of patient 371662818 Z00.01 Ulcer of toe 011073340 L 97.509 Type 2 meme betes mellitus 73415426 E11.42 E11.621 Screening for malignant neoplasm of colon 460229124 Z12.11 Colonoscopy declined 461 5025924 40515 Z53.20 Body mass index 30+ - obesity 765275346 Z68.35 SARS-CoV-2 mRNA vaccine declined 0889787569 Z28.21 Legal blindness 30415500 H54.8 Cough 03375777 R05.9 Onychomyco sis of toenails 671260564 B35.1 Tobacco de pendence in remission 496823648 F17.201 Requires a tetanus booster 352465188 Z28.39 Referral t o adding machine servicer declined by subject 822732407 Z53.20 [id number] MD Cisco Terrell (Adult Med) [address] [place] [address] 75141-480 0 10/08/2022 15:47:47 10/11/2022 10:58:01 Medication monitoring 638840256 Z51.81 Follow-up visit 35829365 9 Z09 History of SARS-CoV-2 29 64688168 83969544 Z86.16 06/2022 Physical deconditioning 0472590411 9102 R68.89 SARS-CoV-2 vaccination declined 1134791040 Z28.21 Colon canc er screening declined 9584437558 9109 Z53.20 Administra tion of pneumococcal vaccine 73715368 Z23 Type 2 meme betes mellitus 26637046 E11.42 E11.621 On TrulicityR estart Lipitor Legal blindness 83116256 H54.8 Medication review done by doctor 723519725 Z76.89 [id number] MD Cisco Terrell (Adult Med) [address] [place] [address] 48659-819 0 08/01/2023 11:12:55 08/05/2023 16:20:26 Type 2 diabetes mellitus 48577507 E11.42 E11.621 Labs OV 10/08/2022On TrulicityR estart Lipitor Medication monitoring 39 8281130 Z51.81 Colon canc er screening declined 0500655172 9109 Z53.20 Medication review done by doctor 633024684 Z76.89 Screening mammography 24 735307 Z12.31 Colonoscopy declined 212 1422404 90458 Z53.20 Neuropathy 080428594 G62 .9 Chronic neck pain 149059 6488 107 M54.2 Pain of ri ght shoulder joint 5090864110 8754611 M25.511 Difficulty walking 33174 2003 R26.2 Administra tion of diphtheria, pertussis, and tetanus vaccine 707516762 Z23 Tinea pedis 0852245 B35. 3 [id number] MD Cisco Terrell (Adult Med) [address] [place] [address] 51930-634 0 11/25/2023 15:15:42 11/28/2023 15:15:54 Body mass index 30+ - obesity 504013722 Z68.31 Obesity 887275990 E66.8 Type 2 meme betes mellitus 98436114 E11.42 E11.621 Stable, HBA1C 6.8% on 08/01/2023 OV 08/01/2023L abs OV 10/08/2022On TrulicityR estart Lipitor Chronic neck pain 865873 6837 107 M54.2 Difficulty walking 36273 2003 R26.2 She needs a K5 PMD to meet her ADLs Ulnar neur opathy of left arm 0191241160 08498 G56.22 Her options including a referral to the orthopedic surgeon were discussed, she would like to try a splint. Pain of le ft knee joint 9409379660 39132 M25.562 The xray done on 09/06/2023 which preceded her most recent fall was suggestive of OA of the left knee. Degenerati on of cervical intervertebral disc 83424226 M50.30 History of thyroid disorder 060948816 Z86.39 Previously on Thyroid replacemen tTSH 5.05 on 4R echeck labs and consider if there is a need to restart Thyroid replacemen t Recurrent falls 70377791 2 R29.6 Chronic ce rebral ischemia 533963604 I67.82 Discussed in detail, noted on the 09/06/2023 CT scan of the brain and the 09/11/2023 MRI of the brain.Gardner tid US < 50 % 09/11/2023TT E 09/11/2023Id eally she should be on Atorvastat in, this was filled on 11/19/2023 as per her EHR, salvador carreon, she cannot confirm this. Heartburn 95323097 R12 Osteoarthr itis of joint of right shoulder region 2201880035 54280 M19.011 Osteoarthr itis of left hip joint 6763548518 75493 M16.12 [id number] Meggan Littlejohn MD [facility] (Adult Med) [address] [place] [address] 17483-892 0 01/02/2024 10:32:47 01/07/2024 11:21:39 Chronic cerebral ischemia 080439610 I67.82 Discussed again in great detail as [...] confirm this. Type 2 meme betes mellitus 10479526 E11.42 E11.621 Stable, HBA1C 6.8% on 08/01/2023 OV 08/01/2023L abs OV 10/08/2022On TrulicityR estart Lipitor Heartburn 82101624 R12 Lifestyle changes were discussedG I Osteoarthr itis of knee 825687903 M17.9 Diabetes mellitus 552494 09 E11.9 Health Concerns Section Related Observation LastModified by Organization Detai ls LastModified Time None Recorded Concern Status LastModified by Organization Details LastModified Time None Recorded Advance Directives Directive Y: Payers Encounter Date Sequence Insurance Name Policy Number Policy Olivares Covered Member ID Olivares Member ID Guarantor Name 05/15/2022 1 [facility] (MEDICARE REPLACEMENT/AD VANTAGE - HMO) [id number] Zuleyka Tinoco [id number] Zuleyka Tinoco 05/15/2022 2 [facility] ON OR AFTER 12/08/20 (MEDICAID REPLACEMENT - HMO) Zuleyka Tinoco [id number] Zuleyka Tinoco 10/08/2022 1 [facility] (MEDICARE REPLACEMENT/AD VANTAGE - HMO) [id number] Zuleyka Tinoco [id number] Zuleyka Tinoco 10/08/2022 2 [facility] ON OR AFTER 12/08/20 (MEDICAID REPLACEMENT - HMO) Zuleyka Tinoco [id number] Zuleyka Tinoco 08/01/2023 1 [facility] (MEDICARE REPLACEMENT/AD VANTAGE - HMO) [id number] Zuleyka Tinoco [id number] Zuleyka Tinoco 08/01/2023 2 [facility] ON OR AFTER 12/08/20 (MEDICAID REPLACEMENT - HMO) Zuleyka Tinoco [id number] Zuleyka Tinoco 11/25/2023 1 [facility] (MEDICARE REPLACEMENT/AD VANTAGE - HMO) [id number] Zuleyka Tinoco [id number] Zuleyka Tinoco 11/25/2023 2 [facility] ON OR AFTER 12/08/20 (MEDICAID REPLACEMENT - HMO) Zuleyka Tinoco [id number] Zuleyka Tinoco 01/02/2024 1 [facility] (MEDICARE REPLACEMENT/AD VANTAGE - HMO) [id number] Zuleyka Tinoco [id number] Zuleyka Tinoco 01/02/2024 2 [facility] ON OR AFTER 12/08/20 (MEDICAID REPLACEMENT - HMO) Zuleyka Tinoco [id number] Zuleyka Tinoco Notes Date Note Type Note [...] providers. Meggan Littlejohn MD Attn: Accounting,[address] [place], [address], [facility] 05/15/2022 15:36:30 3 text/html Diabetes [...] Hypoglycemia, COVID 19, Pyelonephritis and DM.Admitted to [facility] with low blood sugars.Admitted to [facility] with COVID-19.ER at [facility] on 04/12/2022 with; Chest pain, unspecified type; [...] She had a hospital bed in the [place] and she apparently had one at home [...] equipment. Meggan Littlejohn MD Attn: Accounting,[address] [place], [address], [facility] 10/08/2022 18:13:18 4 text/html Diabetes [...] she has been following up with her manager outreach, getting her HD treatments, seeing her graphic design intern and following up at the wound care [...] May,. Meggan Littlejohn MD Attn: Accounting,[address] [facility], [place], [address], 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 Meggan Littlejohn MD Attn: Accounting,[address] [place], [address], [facility] 11/26/2023 13:51:16 4 text/html Reflux/GERDReported [...] LUE. She has an appointment with her graphic design intern soon. Meggan Littlejohn MD Attn: Accounting,[address] [place], [address], [facility] 01/02/2024 11:55:47 OBGyn Episode No OBEpisode recorded.
--- OUTSIDE RECORDS SUMMARY | 2024-10-01 16:01 | XMS_ITS | Encounter Summary ---
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 Gender Identity Not on file Sexual Orientation Not on file documented as of this encounter Plan of Treatment Upcoming Encounters Date Type Department Care Team (Late st Contact Info) Description 04/01/2025 11:00 AM CDT Appointment [facility] [address] [facility] [address] [facility], [address] [place] [address] [place] [address] [facility] [address] [place] [id number] documented as of this encounter Visit Diagnoses Not on filedocumented in this encounter Care Teams Food Safety Auditor Relationship Specialty Start Date End Date Gilles Morrison, CYRIL-MONITOR CAR OPERATOR [address] [place] [address] PCP - General Nurse Practitioner 07/15/18 documented as of this encounter
== END 2024-10-01 14:45 | disposition home or self-care (01) ==
LOC: CHSIMG 14:47
PROVIDERS: PCP Internal Medicine Infectious Disease; Visit Provider Physician Assistant
DX: Z12.31 Encounter for screening mammogram for malignant neoplasm of breast (principal)
CPT/HCPCS: 77063; 77067

== ENCOUNTER 2024-12-24 08:00 | Outpatient (RCR) | payer MEDICARE, MEDICAID, SELFPAY ==
--- NOTE | 2024-12-24 10:32 | OPREHPOC ---
Outpatient Therapy Plan of Care This is a Multidisciplinary Plan of Care that may contain components documented by all disciplines (PT, OT, and ST.) PT Problem 1 PT Problem #1 Knowledge Deficit PT Goal 1 Goal / Goal Update The patient will be independent in a home exercise program. Target Visit 2 PT Problem 2 PT Problem #2 Impaired Functional Mobility PT Goal 1 Goal / Goal Update The patient will demonstrate 50% or less self perceived disability per the LEFS questionnaire. The patient will ambulate 600 feet during the 6 MWT to improve community ambulation. Target Visit 10 PT Problem 3 PT Problem #3 Impaired Balance PT Goal 1 Goal / Goal Update The patient will improve her Tinetti Balance score to 25 to reduce fall risk to low. Target Visit 10 PT Problem 4 PT Problem #4 Impaired Strength PT Goal 1 Goal / Goal Update The patient will improve bilateral knee and hip strength to 4/5 to improve functional mobility. The patient will perform 5 repetitions of sit to stand without use of her UE to improve functional strength. Target Visit 10
--- NOTE | 2024-12-24 10:32 | PTOPEVAL1 ---
Assessment and note entered by Carolina Richey, PT Evaluation Information Assessment Status Evaluation Diagnosis LE weakness Other ICD-10 Condition Codes ( R29.898 PT) Onset 12/17/24 Subjective Information Zuleyka Tinoco reports she has been having trouble walking due to weakness in her legs. She notes she has more weakness in her left leg and sometimes has to drag the left leg. She is doing strengthening exercises sitting. She tries to walk around her apartment when she can. She is legally blind and needs assist to walk. She can see outlines of images and lights but not details. She is able to navigate her home well and she lives with family and is never alone. She has had several instances in the past where her left knee will buckle and she has fallen. She was hospitalized a couple times over 2 years ago due to the falls. She had a left knee x-ray in August 2023 that showed tricompartmental OA. She c/o clicking in the left knee but no pain. She has been told she has arthritis in her back as well. She does have intermittent back pain but is not experiencing any today. She notes her back hurts on average about twice a week. She is sitting in her standard manual wheelchair most of the day. She is usually pushed around the home by her family but can use her legs to propel the wheelchair when needed. She is also getting dialysis 3 times a week. Reported Pain Level Pain Score 0: Self Report Assessment PT Clinical Summary Zuleyka Tinoco presents with gradual decline in her LE strength with the left being worse than the right. She is on dialysis, is legally blind, and has been diagnosed with OA in her lumbar spine and left knee. She uses a wheelchair as her primary means of locomotion and has to have help when walking due to her vision. She is noting difficulty getting up out of her chair and bed, walking, and navigating stairs. She objectively demonstrates crepitus in the L > R patellofemoral joint, tenderness in the lower lumbar spine, decreased L > R knee and hip strength, poor posture, altered gait, and decreased balance. She is currently a high fall risk. She will benefit from skilled PT to address these limitations and improve her functional mobility. Plan of Care Interventions Gait Training,Neuro Re-education,Patient/Caregiver Education,Therapeutic Activities,Therapeutic Exercise PT Services Indicated Yes Treatment Frequency and 2 times a week for 10 visits Duration These treatments will address the objective and functional deficits as defined above. The patient will be advanced safely and appropriately in order for the patient to progress towards his/her prior level of function. Additional exercises will be introduced and as well as a comprehensive home exercise program upon discharge, if needed, ?to ensure carryover of functional gains achieved in the clinic. This treatment plan has been reviewed and agreement upon by the patient.
--- NOTE | 2025-01-07 09:09 | PCPTNOTE ---
No call, no show. Voicemail left for pt's daughter.
--- NOTE | 2025-01-21 07:11 | PCPTNOTE ---
Cancelled session. Reports she has another doctor appointment.
--- NOTE | 2025-01-26 08:28 | PCPTNOTE ---
Patient did not show up for scheduled appointment this date. -Carolina Richey, PT
--- NOTE | 2025-01-28 08:17 | PCPTNOTE ---
No call, no show. VM left for patient.
== END 2025-01-12 16:47 | disposition home or self-care (01) ==
LOC: CHSPT 08:00
PROVIDERS: Visit Provider Physician Assistant
DX: R29.898 Other symptoms and signs involving the musculoskeletal system (principal)
CPT/HCPCS: 97110; 97112; 97161; 97530

== ENCOUNTER 2024-12-31 18:32 | Emergency (ER) | payer MEDICARE, MEDICAID, SELFPAY ==
--- NOTE | ~2024-12-31 | CT_ITS ---
EXAMINATION: CT brain wo con DATE: 12/31/2024 21:28 INDICATION: Dizziness TECHNIQUE: Computed tomography (CT) of the head was performed without intravenous contrast. Sagittal and coronal reconstructions were performed. The mA was adjusted according to patient size. Iterative reconstruction technique was employed. The dose-length product was 605.33 mGy-cm. COMPARISON: head CT dated 02/19/24 FINDINGS: No acute intracranial hemorrhage, acute infarction or abnormal extra axial fluid collection. There is mild scattered white matter hypoattenuation consistent with chronic small vessel ischemic disease. U nchanged small old lacunar infarcts at the bilateral basal ganglia. Ventricles are normal and symmetr ic. No mass/mass effect. Intracranial calcified cerebral atherosclerosis is noted. The orbits, parana macy sinuses and mastoid air cells are normal. Intracranial calcified cerebral atherosclerosis is note d. IMPRESSION: 1. Stable old lacunar infarcts at the bilateral basal ganglia. No acute intracranial process. Reviewed, dictated and finalized at location A. IMPRESSION: 1. Stable old lacunar infarcts at the bilateral basal ganglia. No acute intracr anial process.
[2024-12-31 18:32] VITALS: BP 86/53; PULSE 87; RESP 18; TEMP 36; O2SAT 100
--- OUTSIDE RECORDS SUMMARY | 2024-12-31 18:42 | XMS_ITS | Referral Summary ---
Author Organization [facility] Address [facility] [place] [address] Care Team Providers Care Senior Media Director Name Role Phone Meggan Littlejohn MD Primary [...] How often do you attend chur or mormonism services? Never 06/26/2022 Do you belong to any clubs o r organizations such as hoahaoism groups, unions, fraternal or athletic groups, or [...] place to sleep or slept in a longterm (including now)? No 06/26/2022 Personal Safety Answer Date Recorded Getting School Help Needed Denies 06/16 Comments Unknown Sex and Gender Information Value Date Recorded Sex Assigned at Not on file Legal Sex Female 5:36 PM CANDY BAR ATTENDANT Gender Identity Not on file Sexual Orientation Not on file Last Filed Vital Signs Vital Sign Reading Time Taken Comments Blood Pressure 155/53 06/27/2022 1:12 PM CANDY BAR ATTENDANT Pulse 86 06/27/2022 1:12 PM CANDY BAR ATTENDANT Temperature 36.8 C (98.2 F) 06/27/2022 1:12 PM CANDY BAR ATTENDANT Respiratory Rate 16 06/27/2022 1:12 PM CANDY BAR ATTENDANT Oxygen Saturation 95% 06/27/2022 1:12 PM CANDY BAR ATTENDANT Inhaled Oxygen Concentration - - Weight 103.3 kg (227 lb 12.8 oz) 06/27/2022 4:33 AM CANDY BAR ATTENDANT Height 162.6 cm (5' 4) 06/25/2022 12:1 5 AM CANDY BAR ATTENDANT Body Mass Index 39.1 06/25/2022 12:15 AM CANDY BAR ATTENDANT Plan of Treatment Not on file Procedures Procedure Name Priority Date/Time Associated Diagnosis Comments EGFR Routine 06/27/2022 6:53 AM CANDY BAR ATTENDANT HEPATITIS PANEL, ACUTE STAT 06/25/2022 9:29 AM CANDY BAR ATTENDANT from Last 3 Months or Most Recently Relevant to Health Maintenance Results * eGFR (06/27/2022 6:53 AM CANDY BAR ATTENDANT) eGFR 6 mL/min/1. 73 m2 IRIS DE [...] last reviewed 2021. Blood 06/27/2022 6:53 AM CANDY BAR ATTENDANT 06/27/2022 7:23 AM CANDY BAR ATTENDANT us Juaquin Alonzo MD LAB BLOOD ORDERABLES Final Resul t [facility] ([place]) 1 [facility] Department [place] [address] * Hepatitis panel, acute (06/25/2022 9:29 AM CANDY BAR ATTENDANT) Hep A IgM Nonreactive Nonreactive [facility] ([place]) Comment: Interpretive Data: If Hep A IgM Ab is reported as Equivocal, a new sample should be drawn in two weeks for testing. Current interpretive data was last revised on 19. Testing performed by: , [address] [place] [address]., [id number] Hep B core IgM Nonreactive Nonreactive C GABBIE DE ANDA ([place]) Comment: Interpretive Data If HepB Core IgM Ab is reported as Equivocal, a new sample should be drawn in two weeks for testing. Current interpretive data was last revised on 19. Testing performed by: , [address] [place] [address]., [id number] Hep C Ab Nonreactive Nonreactive IRIS DE [...] last revised on 2019. Testing performed by: , [address] [place] [address]., [id number] HepBsAg Nonreactive Nonreactive [facility] ANDA ([place]) Comment:Testing performed by : , [address] [place] [address]., [id number] Blood 06/25/2022 9:29 AM CANDY BAR ATTENDANT 06/25/2022 2:48 PM CANDY BAR ATTENDANT Dimitris Owens MD LAB MICROBIOLOGY - GENERAL OR DERABLES Final Result [facility] ([place]) 1 [facility] Department [place] [employer] [place] [address] from Last 3 Months or Most Recently Relevant to Health Maintenance Insurance [employer] [facility] MEDICARE [facility] Address: [address] [address] [place] [address] [employer] Advance Directives For more information, please contact: [phone] * Full Code (Latest Code Status on File) Date Activated Date Inactivated Comments 06/24/2022 11:13 PM 06/28/2022 12:08 AM Care Teams Senior Media Director Relationship Specialty Start Date End Date Meggan Littlejohn MD [address] [address] PCP - General 01/01/17
--- OUTSIDE RECORDS SUMMARY | 2024-12-31 18:42 | XMS_ITS ---
Author Organization [facility] Address [facility] [place] [address] Care Team Providers Care Machine Ii Engraver Name Role Phone Meggan Littlejohn MD Primary Care Provider Dialysis Access Sites Type Status Location Placement Date Removal Da te AV fistula Active Left Upper Arm - Anterior Procedures Procedure Name Priority Date/Time Associated Diagnosis Comments EGFR Routine 06/27/2022 6:53 AM INTEGRATION LEAD HEPATITIS PANEL, ACUTE STAT 06/25/2022 9:29 AM INTEGRATION LEAD from Last 3 Months or Most Recently [...] often do you attend chur ch or anabaptism services? Never 06/26/2022 Do you belong to any clubs o r organizations such as latter-day groups, unions, fraternal or athletic groups, or [...] place to sleep or slept in a long-term (including now)? No 06/26/2022 Personal Safety Answer Date Recorded Getting School Help Needed Denies 06/16 Comments Unknown Sex and Gender Information Value Date Recorded Sex Assigned at Not on file Legal Sex Female 5:36 PM INTEGRATION LEAD Gender Identity Not on file Sexual Orientation Not on file Last Filed Vital Signs Vital Sign Reading Time Taken Comments Blood Pressure 155/53 06/27/2022 1:12 PM INTEGRATION LEAD Pulse 86 06/27/2022 1:12 PM INTEGRATION LEAD Temperature 36.8 C (98.2 F) 06/27/2022 1:12 PM INTEGRATION LEAD Respiratory Rate 16 06/27/2022 1:12 PM INTEGRATION LEAD Oxygen Saturation 95% 06/27/2022 1:12 PM INTEGRATION LEAD Inhaled Oxygen Concentration - - Weight 103.3 kg (227 lb 12.8 oz) 06/27/2022 4:33 AM INTEGRATION LEAD Height 162.6 cm (5' 4) 06/25/2022 12:1 5 AM INTEGRATION LEAD Body Mass Index 39.1 06/25/2022 12:15 AM INTEGRATION LEAD Results * eGFR (06/27/2022 6:53 AM INTEGRATION LEAD) eGFR 6 mL/min/1. 73 m2 IRIS DE ANDA ([facility]) Comment: Interpretive Data Reference Interval Normal >/= [...] last reviewed 2021. Blood 06/27/2022 6:53 AM INTEGRATION LEAD 06/27/2022 7:23 AM INTEGRATION LEAD us Jauquin Alonzo MD LAB BLOOD ORDERABLES Final Resul t IRIS DE ANDA ([place]) 1 [facility] Department [place] [address] * Hepatitis panel, acute (06/25/2022 9:29 AM INTEGRATION LEAD) Hep A IgM Nonreactive Nonreactive IRIS DE ANDA ([place]) Comment: Interpretive Data: If Hep A IgM Ab is reported as Equivocal, a new sample should be drawn in two weeks for testing. Current interpretive data was last revised on 19. Testing performed by: [facility], [address] [place] [address]., [id number] Hep B core IgM Nonreactive Nonreactive Leonid DE ANDA ([place]) Comment: Interpretive Data If HepB Core IgM Ab is reported as Equivocal, a new sample should be drawn in two weeks for testing. Current interpretive data was last revised on 19. Testing performed by: [facility], [address] [place] [address]., [address] Hep C Ab Nonreactive Nonreactive IRIS DE [...] last revised on 2019. Testing performed by: [facility], [address] [place] [address]., [address] HepBsAg Nonreactive Nonreactive IRIS DE ANDA ([place]) Comment:Testing performed by : [address] [address] Blood 06/25/2022 9:29 AM INTEGRATION LEAD 06/25/2022 2:48 PM INTEGRATION LEAD us Dimitris Owens MD LAB MICROBIOLOGY - GENERAL OR DERABLES Final Result IRIS DE ANDA ([place]) 1 [facility] Department of [employer] [place], [place] [id number] from Last 3 Months or Most Recently Relevant to Health Maintenance
--- OUTSIDE RECORDS SUMMARY | 2024-12-31 18:43 | XMS_ITS ---
Author Organization [facility] Address [address] [facility] [place] [address] Care Team Providers Care Nurse Ortho Name Role Phone Griffin Velasquez Primary Care Provider [phone] Transplant Episode Kidney Candidate [facility] ([place], [place]) - [facility] Evaluation began on 12/16/2024 Marked as Active on 12/16/2024 Kidney CoordinatorMelissa Mercado RN Phone: N/A Fax: N/A Email: N/A Scores Score Value Updated Exceptions/Reas ons CPRA Not available EPTS (Calc) 82 12/31/2024 [place] Organ Diagnosis Organ Primary Contributory Kidney Diabetes Mellitus - Type II Hype rtensive Nephrosclerosis Care Team Name Role Phone Fax Email Melissa Mercado RN Kidney Coordinator N/A N/A N/A Tara Hu Cd Technician N/A N/A N/A Flavio Carty MD Referring Physician [phone] N/A Events Pre-Transplant Referred: 10/27/2024 Evaluation began: 12/16/2024 Dialysis History Dialysis History Start End Type Comments Center 03/04/2018 08/28/2024 [facility] 08/28/2024 In-center Hemodialysis [facility]ialysis [facility] Information Center Phone Fax Address [facility] [phone] [facility] [address] [facility] [phone] 3 [facility] [place] [address]
--- OUTSIDE RECORDS SUMMARY | 2024-12-31 18:43 | XMS_ITS | Clinical Summary ---
Author Organization [facility] Address [address] [facility] [place] [address] Care Team Providers Care Ladle Repairer Name Role Phone Griffin Velasquez Primary Care Provider [phone] Source Comments [facility],non-owned Affiliates and Associated Physician Practices is amultiple site organization consisting of ambulatory clinics and hospital sitesin [place], [place], [place] and [place]. This disclosure is being madepursuant to the Care Everywhere program and may not contain all information available regarding this patient. 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 ESRD (end stage renal disease) 04/10/2018 Inadequate flow of hemodialysis AV fistula Encounters Date Type Department Care Team Description 12/09/2024 Telephone [facility] TRANSPLANT [address] [place] [address] Clarice Weiss, RN Kidney Transplant Evaluation 12/02/2024 Telephone [facility] TRANSPLANT [address] [place] [address] Clarice Weiss, RN Kidney Transplant Evaluation 11/23/2024 1:40 PM CDT Office Visit [facility] - Surgery [address] [facility], [address] [place] [phone] Bridger Friedman MD Pseudoaneurysm of arteriovenous dialysis fistula, initial encounter (Primary Dx) 11/23/2024 Travel 10/01/2024 10:00 AM CDT - 10/01/2024 11:59 PM CDT Hospital Encounter [facility] V[facility] Services [address] [place] [address], [address] [place] [address] Jose Magaña MD Discharge Disposition: Home or Self Care 10/01/2024 Travel from Last 3 Months Family [...] 04/17/1990 Smokeless Tobacco: Never Tobacco Cessation:Counseling Given: No Alcohol Use Standard Drinks/Week Comments No 0 [...] on file 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 Gender Identity Not on file Sexual Orientation Not on file Last Filed Vital Signs Vital Sign Reading Time Taken Comments Blood Pressure 152/63 10/01/2024 11:05 AM CDT Pulse 75 10/01/2024 11:05 AM CDT Temperature 37.4 C (99.3 F) 10/01/2024 10:23 AM CDT Respiratory Rate 8 10/01/2024 11:05 AM CDT Oxygen Saturation 96% 10/01/2024 11:05 AM CDT Inhaled Oxygen Concentration - - Weight 81.2 kg (179 lb) 11/23/2024 1:46 PM CDT Height 165.1 cm (5' 5) 11/23/2024 1:46 PM CDT Body Mass Index 29.79 11/23/2024 1:46 PM CDT Plan of Treatment Upcoming Encounters Date Type Department Care Team (Latest Contact Info) Description 01/05/2025 9:40 AM CDT Hospital Encounter [facility] - Perioperative Surgery [address] [place] [address] [place] [id number] [place] [address] [place] [phone] Surgery General 01/05/2025 9:40 AM CDT - 01/05/2025 11:03 AM CDT Surgery [facility] - Perioperative Surgery [id number] [place] [address] Bridger Friedman MD [address] [place] [address] [place] [phone] LEFT ARM PSEUDOANEURYSM RESECTIONA AND ACCUSEAL 01/05/2025 10:00 AM CDT Procedure visit [facility] - Surgery [address] [place] [address], [address] [phone] Bridger Friedman MD [address] [place] [address] [place] [phone] 01/21/2025 1:10 PM CDT Office Visit [facility] - Surgery [address] [place] [phone] Kim Davalos, BARGE ENGINEER-ORANGE GROWER [address] [place] [address] [place] [phone] 02/09/2025 2:15 PM CDT Hospital Encounter [facility] ENDOSCOPY [address] [place] [address] Aldo Knox MD [address] [place] [phone] Surgery General 02/09/2025 2:15 PM CDT - 02/09/2025 3:00 PM CDT Surgery [facility] ENDOSCOPY [address] [place] [address] Aldo Knox MD [address] [place] [phone] COLONOSCOPY SCREEN--extended prep---dialysis pt--stat k+ 04/01/2025 11:00 AM CDT Appointment [facility] Vascular Services [address] [address], [address] [place] [address] [place] [address] [facility] [address] [place] [address] Scheduled Procedures Name Priority Associated Diagnoses Date/Ti me REPAIR ANEURYSM / PSEUDOANEURYSM AXILLARY-BRACHIAL 01/05/2025 9:40 AM C DT COLONOSCOPY SCREEN Screen for colon cancer Pre-transplant evaluation for kidney transplant 02/09/2025 2:15 PM CDT Health Maintenance Due Date Last Done Comments [...] 60-74 years 1-dose series) 2016 COVID-19 VACCINE (1 - season) 2024 DEPRESSION SCREENING 06/10/2024 MEDICARE AWV CALENDAR YEAR 2024 INFLUENZA VACCINE (#1) 2025 3, 04/11/2022, 03/12/2022, Additional history exists SCREENING FOR DIABETES 06/27/2025 3, 06/27/2022, 06/26/2022, Additional history exists HEPATITIS C SCREENING Completed [...] Associated Diagnosis Comments CARDIAC RHYTHM STRIP ORDER 10/06/2024 5:36 PM CDT IR ANGIO AV SHUNT IMAGING Routine 10/01/2024 10:54 AM CDT ESRD (end stage renal disease) (HCC) COMPREHENSIVE METABOLIC PANEL STAT 04/12/2022 2:09 PM CDT HEPATITIS C ANTIBODY STAT 04/12/2022 2:09 PM CDT from Last 3 Months or Most Recently Relevant to Health Maintenance Results * CARDIAC RHYTHM STRIP ORDER (10/06/2024 5:36 PM CDT) Narrative 10/06/2024 5:36 PM CDT Ordered by an unspecified provider. us Scanned Document CARDIAC SERVICES ORDERABLES Fin al Result * IR Angio Av Shunt Imaging (10/01/2024 10:54 AM CDT) Anatomical Region Laterality Modality Lower Extremity, Upper Extremity, Chest X-Ray Angiography Narrative 10/01/2024 11:08 AM CDT Jose Magaña MD 10/01/2024 11:11 AM [facility] Zuleyka Tinoco 1955 DATE OF [...] was advanced under fluoroscopy and a 5 Haitian catheter placed. Digital subtraction images were obtained [...] decision was made to perform angioplasty. Five Haitian sheath was upsized to a 7 Haitian sheath. Moderate IV conscious sedation was administered [...] METABOLIC PANEL (04/12/2022 2:09 PM CDT) Pathologist [facility] Glucose 100 70 - 105 mg/dL 04/12/2022 2:42 PM CDT [facility] Sodium 137 136 - 145 mmol/L 04/12/2022 2:42 PM CDT [facility] Potassium 4.0 3.5 - 5.1 mmol/L 04/12/2022 2:42 PM CDT [facility] Chloride 102 98 - 107 mmol/L 04/12/2022 2:42 PM CDT [facility] CO2 28 23 - 31 mmol/L 04/12/2022 2:42 PM CDT [facility] Calcium 8.8 8.4 - 10.4 mg/dL 04/12/2022 2:42 PM CDT [facility] Anion Gap 7(L) 8 - 18 mmol/L 04/12/2022 2:42 PM CDT [facility] BUN 13 9.8 - 20.1 mg/dL 04/12/2022 2:42 PM CDT [facility] Creatinine 5.73(H) 0.57 - 1.11 mg/dL 04/12/2022 2:42 PM CDT [facility] Alkaline Phosphatase 66 40 - 150 U/L 04/12/2022 2:42 PM CDT [facility] ALT <6 0 - 61 U/L 04/12/2022 2:42 PM CDT [facility] AST 13 5 - 34 U/L 04/12/2022 2:42 PM CDT [facility] Protein Total 6.9 6.4 - 8.3 gm/dL 04/12/2022 2:42 PM CDT [facility] Albumin 3.0(L) 3.2 - 4.6 gm/dL 04/12/2022 2:42 PM CDT [facility] Bilirubin Total 0.7 0.2 - 1.2 mg/dL 04/12/2022 2:42 PM CDT [facility] eGFR by CKD-EPI 8(L) >=90 mL/min/1.7 3 m2 04/12/2022 2:42 PM CDT [facility] Blood BLOOD SPECIMEN / Unknown Venipuncture / Unknown 04/12/2022 2:09 PM CDT 04/12/2022 2:19 PM CDT us Carolina Egan PA-C LAB - CHEMISTRY ORDERABL ES Final Result [facility] [address] [place] [address] * HEPATITIS C ANTIBODY (04/12/2022 2:09 PM CDT) HCV Antibody Screen Non Reactive Non Reactive 04/12/2022 2:58 PM CDT [facility] Blood BLOOD SPECIMEN / Unknown Venipuncture / Unknown 04/12/2022 2:09 PM CDT 04/12/2022 2:19 PM CDT Narrative [facility] - 04/12/2022 2:58 PM CDT Non Reactive - Antibodies to Hepatitis C virus (HCV) were not detected, result does not exclude early acute HCV infection. us Suguanakito Pyled DO LAB - CHEMISTRY ORDERABLES Final Result [facility] [address] [place] [address] from Last 3 Months or Most Recently Relevant to Health Maintenance Insurance [facility] [place] [address] [facility] Care Teams Ladle Repairer Relationship Specialty Start Date End Date Griffin Velasquez PA [address] [place] [phone] PCP - General Physician Aids Nurse 12/20/24
--- OUTSIDE RECORDS SUMMARY | 2024-12-31 18:43 | XMS_ITS | Encounter Summary ---
Author Organization [facility] Address [address] [place] [address] Care Team Providers Care Database Development Project Manager Name Role Phone Gilles Morrison OUTREACH CLINICIAN-FRONT SIGHT ATTACHER Primary Care Provider Griffin Velasquez Primary Care Provider [phone] Encounter Details Date Type Department Care Team (Late st Contact Info) Description 03/22/2023 Telephone [facility] . 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 Gender Identity Not on file Sexual Orientation Not on file documented as of this encounter Plan of Treatment Upcoming Encounters Date Type Department Care Team (Latest Contact Info) Description 01/05/2025 9:40 AM CDT Hospital Encounter [facility] Perioperative Surgery [address] [place] [address] Bridger Friedman MD [address] [place] [phone] Surgery General 01/05/2025 9:40 AM CDT - 01/05/2025 11:03 AM CDT Surgery [facility] - Perioperative Surgery [address] [place] [address] Bridger Friedman MD [address] [place] [phone] LEFT ARM PSEUDOANEURYSM RESECTIONA AND ACCUSEAL 01/05/2025 10:00 AM CDT Procedure visit [address] [phone] Bridger Friedman MD [address] [place] [phone] 01/21/2025 1:10 PM CDT Office Visit [address] [phone] Kim Davalos, OUTREACH CLINICIAN-FRONT SIGHT ATTACHER [address] [place] [phone] 02/09/2025 2:15 PM CDT Hospital Encounter [facility] ENDOSCOPY [facility] [place] [address] Aldo Knox MD [facility] [place] [phone] Surgery General 02/09/2025 2:15 PM CDT - 02/09/2025 3:00 PM CDT Surgery [facility] [address] [place] [phone] Aldo Knox MD [address] [place] [phone] COLONOSCOPY SCREEN--extended prep---dialysis pt--stat k+ 04/01/2025 11:00 AM CDT Appointment [facility] Vascular Services [address] [facility], [address] [place] [address] [place] [address] [place] [phone] Scheduled Procedures Name Priority Associated Diagnoses Date/Ti me REPAIR ANEURYSM / PSEUDOANEURYSM AXILLARY-BRACHIAL 01/05/2025 9:40 AM C DT COLONOSCOPY SCREEN Screen for colon cancer Pre-transplant evaluation for kidney transplant 02/09/2025 2:15 PM CDT documented as of this encounter Visit Diagnoses Not on filedocumented in this encounter Care Teams Database Development Project Manager Relationship Specialty Start Date End Date Gilles Morrison, OUTREACH CLINICIAN-FRONT SIGHT ATTACHER [address] [place] [address] PCP - General Nurse Practitioner 07/15/18 12/19/24 Griffin Velasquez PA [address] [place] [address] PCP - General Physician Hospice Case Manager 12/20/24 documented as of this encounter
--- OUTSIDE RECORDS SUMMARY | 2024-12-31 18:43 | XMS_ITS | Continuity of Care Document ---
Author Organization [facility] Address [address] [place] [address] Care Team Providers Care Group Leader Name Role Phone CHERELLE PACHECO Clipper Counters RIYA CROWE Automation/Controls Manager ALVINA VELASQUEZ Primary Care Provider Assessment No assessment recorded. Plan of Treatment Reminders Order Date Submit Date Provider Last Modified By Organization Details Last Modified Time Details Appointments ANY 025 03:30PM Alvina Velasquez PA-C Not available Not available Not available ANY 025 09:30AM Alvina Velasquez PA-C Not available Not available Not available Lab None record ed. Referral None record ed. Procedures None record ed. Surgeries None record ed. Imaging None record ed. Medication Orders None record ed. Patient TargetsNo targets recorded. Patient Instructions Encounter Date Encounter Id Patient Instructions Last Modified By Organization Details Last Modified Time 12/31/2024 [id number] low blood pressure: care instructions jnanney Not available 12/31/2024 16:47:46 chronic kidney disease: care instructions jnanney Not available 12/31/2024 16:47:46 learning about chronic kidney disease jnanney Not available 12/31/2024 16:47:46 Reason for Referral None Reported. Results Created Date Observation Date Name Description Value Unit Range Abnormal Flag Note LastModifiedBy Organization Detail LastModifiedTime 12/03/1912/02/2024 Hemog lobin [Mass /volu me] in Blood hemoglobin [mass/volume ] in blood 12.5 text: 12.0-1 6.0 Not Available Not Available 12/31/2024 16:27:16 12/09/19 25 12/08/2024 Hemog lobin [Mass /volu me] in Blood hemoglobin [mass/volume ] in blood 12.7 text: 12.0-1 6.0 Not Available Not Available 12/31/2024 16:27:16 12/16/19 25 12/15/2024 Phosp hate [Mass /volu me] in Serum or Plasm a phosphate [mass/volume ] in serum or plasma 7.5 text: 2.4-5. 1 high Not Available Not Available 12/31/2024 16:27:16 12/16/19 25 12/15/2024 Urea nitro gen [Mass /volu me] in Serum or Plasm a urea nitrogen [mass/volume ] in serum or plasma 52 text: 9.0-23 .0 high Not Available Not Available 12/31/2024 16:27:16 12/16/19 25 12/15/2024 Hemog lobin [Mass /volu me] in Blood hemoglobin [mass/volume ] in blood 11.3 text: 12.0-1 6.0 low Not Available Not Available 12/31/2024 16:27:16 12/16/19 25 12/15/[address] [Mass /volu me] in Serum or Plasm a parathyrin.i ntact [mass/volume ] in serum or plasma 392 text: 18.0-8 0.0 high Not Available Not Available 12/31/2024 16:27:16 12/17/19 25 12/16/2024 Calci um [Mass /volu me] in Serum or Plasm a calcium [mass/volume ] in serum or plasma 9 text: 8.7-10 .4 Not Available Not Available 12/31/2024 16:27:16 12/17/19 25 12/16/2024 Urea nitro gen [Mass /volu me] in Serum or Plasm a --pos t dialy sis urea nitrogen [mass/volume ] in serum or plasma --post dialysis 13 text: 9.0-23 .0 Not Available Not Available 12/31/2024 16:27:16 12/31/19 25 12/30/2024 Eosin ophil s [#/vo lume] in Blood by Autom ated count eosinophils [#/volume] in blood by automated count 494 text: 0.0-70 0.0 Not Available Not Available 12/31/2024 16:27:15 12/31/19 25 12/30/2024 Plate lets [#/vo lume] in Blood by Autom ated count platelets [#/volume] in blood by automated count 263 text: 140.0- 450.0 Not Available Not Available 12/31/2024 16:27:15 12/31/19 25 12/30/2024 MCV [Enti tic mean volum e] in Red Blood Cells by Autom ated count MCV [entitic mean volume] in red blood cells by automated count 95.4 text: 80.0-1 00.0 Not Available Not Available 12/31/2024 16:27:15 12/31/19 25 12/30/2024 Hemog lobin [Mass /volu me] in Blood hemoglobin [mass/volume ] in blood 12.2 text: 12.0-1 6.0 Not Available Not Available 12/31/2024 16:27:15 12/31/19 25 12/30/2024 Hemat ocrit [Volu me Fract ion] of Blood by Autom ated count hematocrit [volume fraction] of blood by automated count 37.9 text: 37.0-4 7.0 Not Available Not Available 12/31/2024 16:27:15 12/31/19 25 12/30/2024 Eryth rocyt es [#/vo lume] in Blood by Autom ated count erythrocytes [#/volume] in blood by automated count 3.97 text: 3.85-5 .2 Not Available Not Available 12/31/2024 16:27:15 12/31/19 25 12/30/2024 Leuko cytes [#/vo lume] in Blood by Autom ated count leukocytes [#/volume] in blood by automated count 8.5 text: 4.0-11 .0 Not Available Not Available 12/31/2024 16:27:15 12/31/19 25 12/30/2024 Chlor keri [Mole s/vol ume] in Serum or Plasm a chloride [moles/volum e] in serum or plasma 101 text: 98.0-1 07.0 Not Available Not Available 12/31/2024 16:27:15 12/31/19 25 12/30/2024 Sodiu m [Mole s/vol ume] in Serum or Plasm a sodium [moles/volum e] in serum or plasma 141 text: 136.0- 145.0 Not Available Not Available 12/31/2024 16:27:15 12/31/19 25 12/30/2024 Iron [Mass /volu me] in Serum or Plasm a iron [mass/volume ] in serum or plasma 39 text: 50.0-1 70.0 low Not Available Not Available 12/31/2024 16:27:15 12/31/19 25 12/30/2024 Iron shaun ng capac ity.u nsatu rated [Mass /volu me] in Serum or Plasm a iron binding capacity.uns aturated [mass/volume ] in serum or plasma 157 text: 80.0-3 75.0 Not Available Not Available 12/31/2024 16:27:15 12/31/19 25 12/30/2024 Potas sium [Mole s/vol ume] in Serum or Plasm a potassium [moles/volum e] in serum or plasma 4.7 text: 3.5-5. 1 Not Available Not Available 12/31/2024 16:27:15 12/31/19 25 12/30/2024 Prote in [Mass /volu me] in Serum or Plasm a protein [mass/volume ] in serum or plasma 6.9 text: 5.7-8. 2 Not Available Not Available 12/31/2024 16:27:16 12/31/19 25 12/30/2024 Lacta te dehyd rogen ase [Enzy matic activ ity/v olume ] in Serum or Plasm a lactate dehydrogenas e [enzymatic activity/vol ume] in serum or plasma 146 text: 120.0- 246.0 Not Available Not Available 12/31/2024 16:27:16 12/31/19 25 12/30/2024 Aspar winter amino trans feras e [Enzy matic activ ity/v olume ] in Serum or Plasm a aspartate aminotransfe rase [enzymatic activity/vol ume] in serum or plasma 12 text: 0.0-33 .0 Not Available Not Available 12/31/2024 16:27:16 12/31/19 25 12/30/2024 Nikos ne amino trans feras e [Enzy matic activ ity/v olume ] in Serum or Plasm a alanine aminotransfe rase [enzymatic activity/vol ume] in serum or plasma 9 text: 10.0-4 9.0 low Not Available Not Available 12/31/2024 16:27:16 12/31/19 25 12/30/2024 Creat inine [Mass /volu me] in Serum or Plasm a creatinine [mass/volume ] in serum or plasma 8 text: 0.55-1 .02 high Not Available Not Available 12/31/2024 16:27:16 12/31/19 25 12/30/2024 Bicar bonat e [Mole s/vol ume] in Serum or Plasm a bicarbonate [moles/volum e] in serum or plasma 22 text: 20.0-3 1.0 Not Available Not Available 12/31/2024 16:27:16 12/31/19 25 12/30/2024 Album in [Mass /volu me] in Serum or Plasm a by Bromo creso l green (BCG) dye hsaun ng metho d albumin [mass/volume ] in serum or plasma by bromocresol green (bcg) dye binding method 3.8 text: 3.2-4. 8 Not Available Not Available 12/31/2024 16:27:15 12/31/19 25 12/30/2024 Alkal ine phosp hatas e [Enzy matic activ ity/v olume ] in Serum or Plasm a alkaline phosphatase [enzymatic activity/vol ume] in serum or plasma 79 text: 46.0-1 16.0 Not Available Not Available 12/31/2024 16:27:15 12/31/19 25 12/30/2024 Fernando tin [Mass /volu me] in Serum or Plasm a ferritin [mass/volume ] in serum or plasma 939 text: 10.0-2 91.0 high Not Available Not Available 12/31/2024 16:27:16 Result Notes None recorded. Problems Name Problem SNOMED Code Status Onset Date Resolution Date Notes Provider Name and Address Organization Details Recorded Time Chronic ulcer of foot 370618601 Active Meggan Litltejohn MD Attn: [place], [address] , [facility] [place] 12/06/202 2 10:46:44 Type 2 diabetes mellitus with ulcer 464879016 Active Meggan Littlejohn MD Attn: Accounting ,[address] [facility], [place], [address] , [place] [facility] 2 10:46:45 Chest pain 92831938 Active Meggan Littlejohn MD Attn: Accounting ,[address] [facility], [place], [address] , [place] [facility] 2 10:48:50 D-dimer above reference range 685851362 Active eMggan Littlejohn MD Attn: Accounting ,[address] [facility], [place], [address] , [place] [facility] 2 10:48:50 Diabetes mellitus 70934738 Active Meggan Littlejohn MD Attn: Accounting ,[address] [facility], [place], [place], [address] [place] [address] , [place] [facility] 3 16:12:38 Folliculi tis 23139724 Active Meggan Littlejohn MD Attn: Accounting ,[address] [facility], [place], [address] , [place] [facility] 2 10:48:50 Hallux valgus 639577661 Active Meggan Littlejohn MD Attn: Accounting ,[address] [facility], [place], [address] , [place] [facility] 2 10:48:50 Type 2 diabetes mellitus 66298286 Active Meggan Littlejohn MD Attn: Accounting ,[address] [facility], [place], [address] , [place] [facility] 2 10:48:50 Obesity 495299517 Active Not Available [employer] 2 09:25:20 Hypertens mayra disorder 79803967 Active Meggan Littlejohn MD Attn: Accounting ,[address] [facility], [place], [address] , [place] [facility] 2 10:46:45 Hyperlipi demia 21821856 Active Meggan Littlejohn MD Attn: Accounting ,[address] [facility], [place], [place], [address] [place] [address] , [place] [facility] 2 10:48:51 Congestiv e heart failure 43124315 Active Not Available [facility] 2 09:25:21 Anxiety 38298787 Active Meggan Littlejohn MD Attn: Accounting ,[address] [facility], [place], [place], [address] [place] [address] , [place] - [facility] 2 10:48:51 Mammograp hy abnormal 172379724 Active Meggan Littlejohn MD Attn: Accounting ,[address] [facility], [place], [address] [place] [address] , [place] [facility] 2 10:48:50 Constipat ion 58459931 Active Meggan Littlejohn MD Attn: Accounting ,[address] [place], [place], [address] [place] [address] , [place] - [facility] 2 10:48:51 Edema of lower extremity 152749301 Active Meggan Littlejohn MD Attn: Accounting ,[address] [facility], [place], [address] [place] [address] , [place] [facility] 2 10:48:50 Pneumonia 041988424 Active 2015 Meggan Littlejohn MD Attn: Accounting ,[address] [place], [place], [address] [place] [address] , [place] - [facility] 2 10:46:44 Administr ation of pneumococ melinda vaccine Active 2015 Meggan Littlejohn MD Attn: Accounting ,[address] [place], [place], [address] [place] [address] , [place] [facility] 2 10:48:50 Pain in bilateral legs 14158759267 275045 Active 2015 Meggan Littlejohn MD Attn: Accounting ,[address] [place], [place], [address] [place] [address] , [place] - [facility] 2 10:48:50 Contact dermatiti s 72869373 Active 2016 Meggan Littlejohn MD Attn: Accounting ,[address] [place], [address] , [place] [facility] 2 10:48:50 Hypothyro idism 39641781 Active 2016 Meggan Littlejohn MD Attn: Accounting ,[address] [facility], [place], [address] , [place] [facility] 2 10:48:51 Pulmonary hypertens ion 28157421 Active 2016 Meggan Littlejohn MD Attn: Accounting ,[address] [facility], [place], [address] , [place] [facility] 2 10:46:44 Bilateral arthritis of knees 03662281264 82205 Active 2016 Meggan Littlejohn MD Attn: Accounting ,[address] [facility], [place], [address] , [place] [facility] 2 10:48:50 Otitis media 27045151 Active 2016 Meggan Littlejohn MD Attn: Accounting ,[address] [facility], [place], [address] , [place] [facility] 2 10:48:50 Anemia 017451596 Active 2016 Meggan Littlejohn MD Attn: Accounting ,[address] [facility], [place], [address] , [place] [facility] 2 10:48:50 Screening for malignant neoplasm of breast Active 2016 Meggan Littlejohn MD Attn: Accounting ,[address] [facility], [place], [address] , [place] [facility] 2 10:48:51 Administr ation of influenza vaccine Active 2016 eMggan Littlejohn MD Attn: Accounting ,[address] [place], [address] , [place] [facility] 2 10:48:51 Flank pain 551236089 Active 2016 Meggan Littlejohn MD Attn: Accounting ,[address] [facility], [place], [address] , [place] [facility] 2 10:48:50 Nuclear senile cataract 695929396 Active 2016 Meggan Littlejohn MD Attn: Accounting ,[address] [place], [address] , [place] [facility] 2 10:48:50 Acute bronchiti s 88855084 Active 2016 Meggan Littlejohn MD Attn: Accounting ,[address] [place], [address] , [place] [facility] 2 10:48:50 Sleep apnea 84858088 Active 2016 Meggan Littlejohn MD Attn: Accounting ,[address] [place], [address] , [place] [facility] 2 10:48:50 Pre-surge ry testing Active 2016 Meggan Littlejohn MD Attn: Accounting ,[address] [place], [address] , [place] [facility] 2 10:48:50 Serum creatinin e outside reference range 422872764 Active 2016 Meggan Littlejohn MD Attn: Accounting ,[address] [place], [address] , [place] [facility] 2 10:48:51 Upper respirato ry infection 71719652 Active 2017 Meggan Littlejohn MD Attn: Accounting ,[address] [place], [address] , [place] [facility] 2 10:48:50 Kidney stone 25173228 Active 2017 Meggan Littlejohn MD Attn: Accounting ,[address] [place], [address] , [place] [facility] 2 10:48:50 Gastroeso phageal reflux disease 342436452 Active 2017 Meggan Littlejohn MD Attn: Accounting ,[address] [place], [address] , [place] [facility] 2 10:48:51 Serum vitamin B12 below reference range 123198868 Active 2017 Meggan Littlejohn MD Attn: Accounting ,[address] [place], [address] , [place] [facility] 2 10:48:50 Acute sinusitis 37820007 Active 2017 Meggan Littlejohn MD Attn: Accounting ,[address] [place], [address] , [place] [facility] 2 10:48:51 Chronic renal failure 31323458 Active 2017 Meggan Littlejohn MD Attn: Accounting ,[address] [place], [address] , [place] [facility] 2 10:48:51 Acute urinary tract infection 506034319 Active 2017 Meggan Littlejohn MD Attn: Accounting ,[address] [place], [address] , [place] [facility] 2 10:48:50 Tuberculo sis screening Active 2017 Meggan Littlejohn MD Attn: Accounting ,[address] [place], [address] , [place] [facility] 2 10:48:51 Hepatitis B screening Completed 201704/08/2018 Amol Morrison PA-C Attn: Accounting ,[address] [place], [address] , [place] [facility] 8 12:13:49 Hepatitis B screening required 768763827 Active 2017 Meggan Littlejohn MD Attn: Accounting ,[address] [place], [address] , [place] [facility] 2 10:48:50 Pain of right shoulder joint 97647517890 442308 Active 2017 Meggan Littlejohn MD Attn: Accounting ,[address] [place], [address] , [place] [facility] 2 10:48:50 Chronic kidney disease 531210228 Active 2018 Meggan Littlejohn MD Attn: Accounting ,[address] [facility], [place], [address] , [place] [facility] 2 10:46:45 Essential hypertens ion 34952929 Active 2019 Meggan Littlejohn MD Attn: Accounting ,[address] [facility], [place], [address] , [place] [facility] 2 10:48:50 Vitamin D below reference range 515103812 Active 2020 Meggan Littlejohn MD Attn: Accounting ,[address] [facility], [place], [address] , [place] [facility] 2 10:48:50 Restless legs 57233788 Active 2020 Meggan Littlejohn MD Attn: Accounting ,[address] [facility], [place], [address] , [place] [facility] 2 10:48:50 Candidias is 44305520 Active 2021 Meggan Littlejohn MD Attn: Accounting ,[address] [facility], [place], [address] , [place] [facility] 2 10:48:50 Irritable bowel syndrome 60500095 Active 2021 Meggan Littlejohn MD Attn: Accounting ,[address] [facility], [place], [address] , [place] [facility] 2 10:48:50 End stage renal failure on dialysis 827633755 Active 2021 Meggan Littlejohn MD Attn: Accounting ,[address] [facility], [place], [address] , [place] [facility] 2 10:48:50 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 282164036 Active 2021 Meggan Littlejohn MD Attn: Accounting ,[address] [facility], [place], [address] , [place] [facility] 2 10:48:50 Legal blindness 23286141 Active 2021 Meggan Littlejohn MD Attn: Accounting ,[address] [facility], [place], [address] [place] [address] , [place] [facility] 2 11:22:08 Referral to ophthalmo logist declined by subject 669889094 Active 2021 Meggan Littlejohn MD Attn: Accounting ,[address] [facility], [place], [address] [place] [address] , [place] [facility] 2 11:50:18 Colonosco py declined 60659198386 9100 Active 2021 Meggan Littlejohn MD Attn: Accounting ,[address] [facility], [place], [place], [address] [place] [address] , [facility] 2 15:35:39 Tobacco dependenc e in remission 803809740 Active 2021 Meggan Littlejohn MD Attn: Accounting ,[address] [facility], [place], [address] [place] [address] , [place] [facility] 2 15:35:51 History of SARS-CoV- 2 81978193538 8811260 Active 2022 Meggan Littlejohn MD Attn: Accounting ,[address] [facility], [place], [address] [place] [address] , [place] [facility] 3 16:09:29 Colon cancer screening declined 45172037584 109 Active 2022 Meggan Littlejohn MD Attn: Accounting ,[address] [facility], [place], [address] [place] [address] , [place] [facility] 3 16:29:14 SARS-CoV- 2 vaccinati on declined 0889600349 Active 2022 Meggan Littlejohn MD Attn: Accounting ,[address] [facility], [place], [address] [place] [address] , [place] [facility] 3 16:29:15 Ulnar neuropath y of left arm 05017685784 9107 Active 2023 Meggan Littlejohn MD Attn: Accounting ,[address] [facility], [place], [address] , [place] [facility] 4 15:46:15 Chronic cerebral ischemia 661377759 Active 2023 Meggan Littlejohn MD Attn: Accounting ,[address] [facility], [place], [address] , [place] [facility] 4 16:20:44 Recurrent falls 391524807 Active 2023 Meggan Littlejohn MD Attn: Accounting ,[address] [facility], [place], [address] , [place] [facility] 4 20:32:26 Osteoarth ritis of joint of right shoulder region 72456298454 9100 Active 2023 Meggan Littlejohn MD Attn: Accounting ,[address] [facility], [place], [address] , [place] [facility] 4 20:35:46 Osteoarth ritis of left hip joint 23751936297 9108 Active 2023 Meggan Littlejohn MD Attn: Accounting ,[address] [facility], [place], [address] , [place] [facility] 4 20:39:08 Heartburn 88912159 Active 2023 Meggan Littlejohn MD Attn: Accounting ,[address] [facility], [place], [address] , [place] [facility] 4 20:39:17 Degenerat ion of cervical intervert ebral disc 38654465 Active 2023 Meggan Littlejohn MD Attn: Accounting ,[address] [facility], [place], [address] , [place] [facility] 4 20:46:07 History of thyroid disorder 704301694 Active 2023 Meggan Littlejohn MD Attn: Accounting ,[address] [facility], [place], [address] , [place] [facility] 4 20:46:11 Notes:Some problems listed i n Documents: #[id number], #[id number], #[id number], #[id number], #[id number], #[id number] could not be added to this patient's chart. Please review these documents and add these problems to the patient's chart manually as needed. Problem Notes None recorded. Procedures Surgical History Date Name Laterality Status Provider Name and Address Organization Details Recorded Time 4 Diabetic Foot Exam completed Meggan Littlejohn MD Attn: Accounting,[address] [facility], [place], [address], [facility] 08/01/2023 12:21:21 0 extraction of cataract completed Margaret Hobbs MA [facility] 02/11/2020 11:53:25 9 procedure completed Margaret Hobbs MA [facility] 04/09/2019 12:01:52 Imaging Results None recorded. Procedure Notes None recorded. Medical Equipment None Reported. Allergies Allergen ID Allergen Name Allergen Category Reaction Reaction Severity Criticality Documentation Date Start Date Code Code System Note Provider Name and Address Organization Details Recorded Time 679572 hydrochlo rothiazid e medicatio n other Not available Not available 05/15/2022 5487 RxNorm Meggan Littlejohn MD Attn: Accountin g,[address] [facility], [place], [address], [facility] 2 10:55:11 21971 captopril / hydrochlo rothiazid e medicatio n hives Not available Not available 09/27/2015 15017 7 RxNorm Layla Velarde MA null, [place] - [facility] 6 12:39:51 Medications Name Sig Start Date Stop Date [...] APPLY TO THE AFFECTED AREA ONCE DAILY 10/27 completed Not Available Not Available Not Available amoxicill in 500 mg capsule 10/08 [...] route in the evening for 90 days. 2024 active Not Available Not Available Not Avai lable terbinafi ne HCl 1 % topical cream APPLY TO THE AFFECTED AND SURROUND ING AREAS OF SKIN BY TOPICAL ROUTE ONCE DAILY 10/27 completed Not Available Not Available Not Available metformin 500 mg tablet TAKE 1 TABLET [...] 10 days. 09/20 completed Per v/o Guillermo Morrison PAC Not Available Not Available Not Available doxycycli ne hyclate 100 mg capsule 01/01 completed Not Available Not Available Not Available carvedilo l 12.5 mg tablet TAKE 1 TABLET BY MOUTH TWICE DAILY 2024 active Not Available Not Available Not Avai lable bumetanid e 2 mg tablet 10/09 completed [...] e ER 90 mg tablet,ex tended release Take 1 tablet every day by oral route for 90 days. 2024 active Not Available Not Available Not Avai lable fluconazo le 150 mg tablet 05/15 completed [...] Available ondansetr on HCl 4 mg tablet 10/27 completed Not Available Not Available Not Available famotidin e 40 mg tablet TAKE [...] Not Available cephalexi n 500 mg capsule Take 1 capsule 3 times a day by oral route for 10 days. 12/31 completed Not Available Not Available Not Available [...] 1 CAPSULE BY MOUTH TWICE A DAY BEFORE MEALS 2024 active Not Available Not Available Not Avai lable gentamici n 0.1 % topical cream 10/09 completed Not Available Not Available Not Available bumetanid e 1 mg tablet 05/15 completed Not Available Not Available Not Available aspirin 81 mg tablet Take 1 tablet every day by oral route. active Not Available Not Available No t Available hydrochlo rothiazid e 25 mg tablet [...] ondansetr on 4 mg disintegr ating tablet Place 1 tablet twice a day by translin gual route as needed for 30 days. 2024 active Not Available Not Available Not Avai lable losartan 100 mg tablet TAKE 1 TABLET [...] route for 10 days. 09/20 completed Per v/o Guillermo Morrison PAC Not Available Not Available Not Available hydroxyzi [...] TABLETS BY MOUTH THREE TIMES A DAY 10/27 completed Not Available Not Available Not Available Dificid 200 mg tablet 05/15 completed Not Available Not Available Not Available OneTouch Verio test strips TEST BLOOD SUGAR THREE TIMES A DAY 12/31 completed Not Available Not Available Not Available OneTouch Delica Lancets 30 gauge 09/20 completed Not Available Not Available Not Available potassium chloride ER 20 mEq tablet,ex tended release TAKE ONE CAPSULE BY MOUTH ONCE DAILY 12/07 completed Not Available Not Available Not Available Trulicity 1.5 mg/0.5 mL subcutane ous pen injector INJECT 0.5ML SUBCUTAN EOUSLY EVERY WEEK 2024 active Not Available Not Available Not Avai lable OneTouch Verio Flex Meter TEST BLOOD SUGAR THREE TIMES A DAY 12/31 completed Not Available Not Available Not Available OneTouch Delica Plus Lancet 33 gauge TEST BLOOD SUGAR THREE TIMES A DAY 12/31 completed Not Available Not Available Not Available Vitals Date Recorded Body height Body mass index (BMI) Body weight Oxygen saturation Oxygen saturation in Arterial blood by Pulse oximetry Heart rate Systolic And Diastolic Provider Name and Address Organization Details Last Updated DateTime 5 170.18 cm 28.2 kg/m2 59560.6 3 g 99 % 99 % 78 /min 94/58 mm[Hg] Iza Danielle MA [place] - [facility] 5 16:34:24 Social History Question Answer Notes LastModified by Organizat ion Details LastModified Time Tobacco Smoking Status Former Smoker 1989 Meggan Littlejohn MD Attn: Accounting,[address] [place], [address], [facility] 05/15/2022 11:07:32 Do You Have An Advance Directive? Yes Information n ot available 09/20/2020 Are You Blind Or Do You Have Difficulty Seeing? Yes hdoverma Information n ot available 05/15/2022 What Is [...] Date Of Your Most Recent Tobacco Screening? 12/31/2024 Information not available 12/31/2024 What Is Your Current Pack Years? 20-29packyea [...] No Information not available 09/27/2015 Do You Use Sunscreen Routinely? No Information not available 09/20/2020 Has Tobacco Cessation Counseling Been Provided? Yes Information not available 05/15/2022 On What Date Was Tobacco Cessation Counseling Provided? 12/31/2024 Information not available 12/31/2024 Sex: Female Functional Status Question Answer Note LastModified by Organizat ion Details LastModified Time Do you use any illicit or recreational drugs? No Information not available 09/20/2020 Do you or have you ever used any other forms of tobacco or nicotine? No Information not available 05/15/2022 What is your level of alcohol consumption? None Information not available 09/20/2020 Are you currently employed? No Information not available 09/20/2020 Are you able to care for yourself? Yes Information n ot available 09/20/2020 What is your exercise level? Occasional Information not available 09/20/2020 Mental Status Question Answer Note LastModified by Organization D etails LastModified Time Do you feel stressed (tense, restless, nervous, or anxious, or unable to sleep at night)? [id number] Information not available 09/20/2020 Family History Relationship Description Onset Age of [...] [email or web address] Not available 2015 12:42:56 Brother Malignant neoplasm of lung [email or web address] Not available 2015 12:42:56 Medical History Condition Response Anxiety Disorder Y Diabetes Y High Blood Pressure Y High Cholesterol Y Hepatitis Y Heart Failure Y Depression Y Blood Clots Y Gynecological HistoryNo gynecological history recorded. Obstetrics History GPAL:G 0 P 0 0 0 0 Immunizations Vaccine Type Date Status Note Provider Nam e and Address Organization Details Recorded Time influenza, unspecified formulation 2 completed Meggan Littlejohn MD Attn: Accounting,[address] [place], [place], [address] [place] [address], [place] [facility] 05/15/2022 10:46:19 Influenza, split virus, quadrivalent, PF 6 completed Meggan Littlejohn MD Attn: Accounting,204 1 [place], [address] [place] [address], [place] [facility] 05/15/2022 10:46:19 pneumococcal polysaccharide PPV23 6 completed Not Available [facility] 06/27/2019 02:39:52 influenza, unspecified formulation 3 completed Meggan Littlejohn MD Attn: Accounting,204 1 [place], [address] [place] [address], [place] [facility] 08/01/2023 11:45:05 influenza, unspecified formulation 2 completed Not Available [facility] 12/31/2024 16:27:18 Influenza, split virus, quadrivalent, preservative 7 completed Not Available [facility] 06/27/2019 02:34:00 Influenza, split virus, quadrivalent, preservative 9 completed Not Available [facility] 06/27/2019 02:38:43 Influenza, split virus, quadrivalent, preservative 0 completed Margaret Hobbs [place], [place] [facility] 04/14/2020 10:36:24 Influenza, split virus, quadrivalent, preservative 1 completed Maggy Brooks [place], [place] [facility] 05/25/2021 10:48:19 Pneumococcal conjugate PCV20, polysaccharide [id number] conjugate, adjuvant, PF 3 completed [place]ESHA [place] [facility] 10/09/2022 10:45:27 Tdap 4 completed Sheryl Nascimento [place], [place] [facility] 08/01/2023 16:57:15 Past Encounters Encounter ID Performer Location Encounter Start Date Encounter Closed Date Diagnosis/Indication Diagnosis SNOMED-CT Code Diagnosis ICD10 Code Diagnosis Note [id number] Mamadou Haq MD [facility] [address] [place] [address] 12/17/2024 11:39:39 12/18/2024 09:25:29 Hypertensive disorder 86605372 I10 well controlled Chronic renal failure 90 305761 N18.5 Screening for malignant neoplasm of colon 270104060 Z12.11 Acute urin katelynn tract infection 994098287 N39.0 Muscle wea kness of limb 897544460 R29.898 Essential hypertension 93660275 I10 well controlled Overweight in adulthood with body mass index of 25 or more but less than 30 332547032 E66.3 Z68.28 [id number] Mamadou Haq MD [facility] [address] [facility] [place] [address] 12/31/2024 16:25:59 12/31/2024 16:52:33 Chronic renal failure 00472302 N18.5 History of cerebrovascular accident 216267367 Z86.73 Low blood pressure 81551 003 I95.9 given a bp monitor..a lso will call cardiologi and discuss Overweight in adulthood with body mass index of 25 or more but less than 30 630230915 E66.3 Z68.28 Well contr olled type 2 diabetes mellitus 467453633 E11.9 Health Concerns Section Related Observation LastModified by Organization Detai ls LastModified Time None Recorded Concern Status LastModified by Organization Details LastModified Time None Recorded Payers Encounter Date Sequence Insurance Name Policy Number Policy Olivares Covered Member ID Olivares Member ID Guarantor Name 12/31/2024 1 [facility] (MEDICARE REPLACEMENT/AD VANTAGE - HMO) [id number] Zuleyka Tinoco [id number] Zuleyka Tinoco 12/31/2024 2 [place]CON[place] WHEN MEDICARE OR MEDICARE REPLACEMENT PRIMARY) Zuleyka Tinoco [id number] Zuleyka Tinoco Notes Date Note Type Note Provider Name and Address Organization Details Recorded Time 12/31/2024 text/html ROS as noted in the HPI pt on carvedilol and nifedipine.. per machine heel seat laster...got hypotensive at phys therapy... hx of cva...went home and ate relaxed..and came up a little later...still somewhat low...takes dialysis currently and is limited on fluid intake.. Alvina Velasquez PA-C Attn: Accounting,204 1 [facility], [place], [address], [facility] 12/31/2024 16:52:30 OBGyn Episode No OBEpisode recorded.
--- OUTSIDE RECORDS SUMMARY | 2024-12-31 18:43 | XMS_ITS | Data Portability ---
Author Organization [facility] [employer], Main Office Address [address] [place] [address] Assessment No assessment recorded. Plan of Treatment Reminders Order Date Submit Date Provider Last Modified By Organization Details Last Modified Time Details Appointments None recorded. Lab hemoglobin A1C, fingerstick 2024 025 [facility], [address] [place] [address], [phone], 16:39:48 TSH, serum or plasma 2024 025 [facility] (Lab), [address] [place], [address], 12:59:08 TSH, serum or plasma 2024 025 [facility] (Lab), [address] [place], [address], 5 12:54:56 lipid panel, serum 2024 025 [facility] (Lab), [address] [place], [address], 12:54:57 CBC w/ auto diff 2024 025 [facility] (Lab), [address] [place], [address], 5 13:07:13 CMP, serum or plasma 2024 025 [facility] (Lab), [address] [place], [address], 5 12:54:57 CK (creatine kinase), total, serum 2024 025 [email or web address] [id number] [facility] (Lab), [address] [place], [address], 12:34:56 Referral None recorded. Procedures None recorded. Surgeries None recorded. Imaging MAMMO, screening, digital, bilateral 2024 025 [email or web address] [facility], [address] [place], [address], 17:18:57 Medication Orders Protein Nutritional Shake oral liquid 2024 025 [facility], [address] [place], [address], 5 10:36:14 Trulicity 0.75 mg/0.5 mL subcutaneou s pen injector 2024 025 [facility], [address] [place] [id number] [address], [address], [place], [place], [id number], 16:24:20 Patient TargetsNo targets recorded. Patient Instructions Encounter Date Encounter Id Patient Instructions Last Modified By Organization Details Last Modified Time 10/15/2024 [id number] get dilated eye exam [email or web address] Not available 10/15/2024 15:43:36 Reason for Referral None Reported. Results Created Date Observation Date Name Description Value Unit Range Abnormal Flag Note LastModifiedBy Organization Detail LastModifiedTime 08/12/19 25 08/11/2024 hemog lobin A1C, finge rstic k HgbA1C 5.6% Not Available [facility]_[address], [place], [address], 08/11/2024 16:25:07 10/03/19 25 10/01/2024 MAMMO , scree rene, digit al, bilat eral No observ ation record ed. [facility] [address] [place], [address], 10/02/2024 13:51:39 Result Notes None recorded. Problems Name Problem SNOMED Code Status Onset Date Resolution Date Notes Provider Name and Address Organization Details Recorded Time Ulcer 907458299 Active Not Available [facility] 3 04:37:04 Type 2 diabetes mellitus 27789034 Active Not Available [facility] 3 04:37:04 Skin lesion 42702871 Active Not Available [facility] 3 04:37:04 Diabetes mellitus 16229016 Active 2020 Not Available [facility] 3 04:37:04 Periphera l neuropath y due to type 2 diabetes mellitus 81869711571 07 Active 2020 Not Available [facility] 3 04:37:04 Incontine nce 51850544 Active 2024 [address], [place], [address] , [employer] 5 16:22:52 Hypothyro idism 84983416 Active 2024 [address], [address], [place], [address] , [employer] 5 16:25:42 Hyperlipi demia 09699984 Active 2024 [address], [place], [address] , [employer] 5 16:25:59 Chronic kidney disease 341208338 Active [address] Bravo , [place] ;pmay get a kidney ttranspla nt [facility] [address], [place], [address] , [employer] 5 15:42:50 Obese 682228979 Active 2024 [facility] [address], [place], [address] , [facility] [employer] [facility] 5 21:38:41 Screening mammograp hy Active 2024 [facility] [address], [place], [address] , [facility] [employer] [facility] 5 10:26:43 Renal dialysis Active 20[address], [place], [address] , [facility] [employer] [facility] 5 10:30:37 Problem Notes None recorded. Procedures Surgical History Date Name Laterality Status Provider Name and Address Organization Details Recorded Time closure of fistula of kidney completed Carolina Gaitan RN [facility] [employer] [facility] 08/11/2024 16:12:30 Imaging Results None recorded. Procedure Notes None recorded. Medical Equipment None Reported. Allergies Allergen ID Allergen Name Allergen Category Reaction Reaction Severity Criticality Documentation Date Start Date Code Code System Note Provider Name and Address Organization Details Recorded Time 67406 capecitab ine medicatio n Not available Not available Not available 08/11/2024 74073 0 RxNorm Carolina Gaitan RN [facility], [facility] 16:02:10 Medications Name Sig Start Date Stop [...] completed Not Available Not Available Not Available [employer] Ultra Test strips active Not Available Not [...] 0.75 mg/0.5 mL subcutaneou s pen injector INJECT 0.5ML SUBCUTANE OUSLY EVERY WEEK active Not Available Not Available No t Available Protein Nutritional Shake oral liquid Take 237 mL every day by oral route for 30 days. 2024 active Not Available Not Available Not Avai lable Vitals Date Recorded Body height Body mass index (BMI) Body weight Body temperature Heart rate Respiratory rate Oxygen saturation Oxygen saturation in Arterial blood by Pulse oximetry Systolic And Diastolic Provider Name and Address Organization Details Last Updated DateTime 03/04/202 5 165.1 cm 32.4 kg/m2 72023.5 1 g 97.6 [degF] 72 /min 16 /min 98 % 98 % 118/76 mm[Hg] Carolina Gaitan RN [facility] [employer] [facility] 5 16:14:57 Date Recorded Body height Body temperature Oxygen saturation Oxygen saturation in Arterial blood by Pulse oximetry Heart rate Systolic And Diastolic Provider Name and Address Organization Details Last Updated DateTime 5 165.1 cm 97.8 [degF] 98 % 98 % 78 /min 136/68 mm[Hg] Angela Kapoor [facility] [employer] [facility] 5 09:43:06 Date Recorded Body height Body mass index (BMI) Body weight Body temperature Heart rate Oxygen saturation Oxygen saturation in Arterial blood by Pulse oximetry Systolic And Diastolic Provider Name and Address Organization Details Last Updated DateTime 5 165.1 cm 31 kg/m2 47017.1 8 g 97.6 [degF] 76 /min 99 % 99 % 132/78 mm[Hg] Angela Kapoor [facility] [employer] [facility] 5 15:29:23 Date Recorded Body mass index (BMI) Body height Heart rate Body weight Systolic And Diastolic Provider Name and Address Organization Details Last Updated DateTime 12/02/2020 40.7 kg/m2 170.18 cm 61 /min 771008.0 2 g 130/76 mm[Hg] Not Available [facility] 3 04:35:52 Date Recorded Body height Oxygen saturation Oxygen saturation in Arterial blood by Pulse oximetry Heart rate Respiratory rate Body temperature Systolic And Diastolic Provider Name and Address Organization Details Last Updated DateTime 1 170.18 cm 100 % 100 % 82 /min 18 /min 97.7 [degF] 171/74 mm[Hg] Not Available [facility] 3 04:35:53 Social History Question Answer Notes LastModified by Organizat ion Details LastModified Time Tobacco Smoking Status Former Smoker Not Available [facility] 08/08/2022 04:30:32 Do You Have An Advance Directive? No [email or web address] Information not available 08/11/2024 Are You Blind Or Do You Have Difficulty Seeing? Yes Blind [email or web address] Information not available 08/11/2024 What Is Your Level Of Caffeine Consumption? None [email or web address] Information not available 08/11/2024 Are You Deaf Or Do You Have Serious Difficulty Hearing? Yes Information not available 08/11/2024 What Type Of Diet Are You Following? SPECIFIC Renal Diet --on Dialysis [email or web address] Information not available 08/11/2024 What Is The Highest Grade Or Level Of School You Have Completed Or The Highest Degree You Have Received? UV66067-5 [email or web address] Information not available 08/11/2024 Have There Been Any Changes To Your Family Or Social Situation? No [email or web address] Information not available 08/11/2024 When Did You Quit Smoking? 16+yearssinc elastcigaret te [email or web address] Information not available 08/11/2024 Do You Use Insect Repellent Routinely? No [email or web address] Information not available 08/11/2024 Where Do You Live? [place] [email or web address] Information not available 08/11/2024 Do You Have A Medical Power Of Extrusion Press Supervisor? No [email or web address] Information not available 08/11/2024 How Many Children Do You Have? 3 [email or web address] Information not available 08/11/2024 Do You Have Any Pets? Yes Cat [email or web address] Information not available 08/11/2024 What Is Your Relationship Status? [email or web address] Information not available 08/11/2024 Do You Have Smoke And Carbon Monoxide Detectors In Your Home? Yes [email or web address] Information not available 08/11/2024 Are You Passively Exposed To Smoke? Yes [email or web address] Information not available 08/11/2024 Are There Any Smokers In Your House? Yes [email or web address] Information not available 08/11/2024 Do You Use Sunscreen Routinely? No [email or web address] Information not available 08/11/2024 Do You Have Difficulty Walking Or Climbing Stairs? Yes [email or web address] Information not available 08/11/2024 Sex: Unknown Functional Status Question Answer Note LastModified by Organizat ion Details LastModified Time Do you use any illicit or recreational drugs? No Information not available 08/11/2024 What is your level of alcohol consumption? None [email or web address] Information not available 08/11/2024 Are you able to walk? YESLIMIT [email or web address] Information not available 08/11/2024 Are you able to care for yourself? Yes [email or web address] Information n ot available 08/11/2024 Mental Status Question Answer Note LastModified by Organization D etails LastModified Time Do you have difficulty concentrating, remembering or making decisions? Yes [email or web address] Information no t available 08/11/2024 Family History Relationship Description Onset Age of this Age Resolved Age Notes LastModified by Organization Details LastModified Time Brother Diabetes mellitus [email or web address] [id number] Not available 08/08/2022 04:31:45 Father Heart disease Diabet ic [email or web address] [id number] Not available 08/08/2022 04:31:45 Mother Heart disease Breast Cancer [email or web address] [id number] Not available 08/08/2022 04:31:45 Maternal Grandmother Malignant tumor of breast [email or web address] Not available 2024 16:07:44 Father Diabetes mellitus Not available 2024 16:07:55 Medical History Condition Response HYPERTHYROIDISM Y DIABETES, TYPE Y DIALYSIS Y Gynecological HistoryNo gynecological history recorded. Obstetrics History GPAL:G 0 P 0 0 0 0 Past Encounters Encounter ID Performer Location Encounter Start Date Encounter Closed Date Diagnosis/Indication Diagnosis SNOMED-CT Code Diagnosis ICD10 Code Diagnosis Note [id number] [facility]_ DEFAULT_1 _1 , 10/14/2020 00:00:00 10/14/2020 12:29:24 [id number] [facility]_M [facility]_ DEFAULT_1 _1 , 12/02/2020 00:00:00 12/04/2020 12:59:23 [id number] [facility] [address] [place] [address] 12/13/2020 00:00:00 12/15/2020 13:51:42 [id number] Ad Fam MD [facility] [address] [address] 08/11/2024 15:54:04 08/11/2024 17:28:14 Type 2 diabetes mellitus 00432028 E11.21 Incontinence 11535105 R3 2 Peripheral neuropathy due to type 2 diabetes mellitus 3926462806 107 E11.42 Hypothyroidism 22594867 E03.9 Hyperlipidemia 93139223 E78.5 Chronic ki dney disease 358623399 N18.9 Obese 159312226 E66.9 [id number] Ad Fam MD [address] [address] 09/03/2024 09:05:48 09/03/2024 10:52:10 Screening mammography 90015522 Z12.31 Chronic ki dney disease 148346505 N18.9 Renal dialysis 940590175 Z99.2 Peripheral neuropathy due to type 2 diabetes mellitus 5242517716 107 E11.42 Incontinence 36223523 R3 2 [id number] Ad Fam MD [facility] [address] [place] [address] 10/15/2024 15:16:27 10/15/2024 15:40:59 Chronic kidney disease 866572449 N18.9 Hyperlipidemia 74682898 E78.5 Diabetes mellitus 532298 09 E11.40 E11.621 Hypothyroidism 41373840 E03.9 Incontinence 34182489 R3 2 Peripheral neuropathy due to type 2 diabetes mellitus 0858176789 107 E11.42 Renal dialysis 798126522 Z99.2 Type 2 meme betes mellitus 84813546 E11.21 Health Concerns Section Related Observation LastModified by Organization Detai ls LastModified Time None Recorded Concern Status LastModified by Organization Details LastModified Time None Recorded Advance Directives Directive N: Payers Insurance Date Sequence Insurance Name Policy Number Policy Olivares Covered Member ID Olivares Member ID Guarantor Name 11/08/2024 1 [facility] (MEDICARE REPLACEMENT/A DVANTAGE - POS) [id number] Zuleyka Tinoco [id number] Zuleyka Tinoco 11/08/2024 2 [facility] - DOS ON OR AFTER 20 (MEDICAID REPLACEMENT - HMO) Zuleyka Tinoco [id number] Zuleyka Tinoco Notes Date Note Type Note Provider Name and Address Organization Details Recorded Time 08/11/2024 text/html Type 2 Diabetes , kidney disease , on dialysis [facility] [address], [place], [address], [employer] [facility] 08/16/2024 21:39:03 09/03/2024 text/html no changes . falls out of bed , needs a bed with rails , adjustable to keep skin healthy [facility] [address], [place], [address], [employer] 09/07/2024 17:23:27 10/15/2024 text/html Doing well . [facility] [address], [place], [address], [employer] 10/19/2024 16:03:52 OBGyn Episode No OBEpisode recorded.
--- OUTSIDE RECORDS SUMMARY | 2024-12-31 18:43 | XMS_ITS | Encounter Summary ---
Author Organization [facility] Health Address [address] [place] [address] Care Team Providers Care Investigator Fraud Name Role Phone Meggan Littlejohn MD Primary Care Provider Gilles Morrison Primary Care Provider Griffin Velasquez Primary Care Provider Encounter Details Date Type Department Care Team (Late st Contact Info) Description 03/10/2018 [facility] [address] [place] [address] [place] [address] [facility] [address] [place] [address] Social History Tobacco Use Types Packs/Day Years Used Date Smoking Tobacco: Never Smokeless Tobacco: Never Alcohol Use Standard Drinks/Week Comments No 0 (1 standard drink = 0.6 oz pur e alcohol) Comments Unknown Sex and Gender Information Value Date Recorded Sex Assigned at Not on file 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 Gender Identity Not on file Sexual Orientation Not on file documented as of this encounter Plan of Treatment Upcoming Encounters Date Type Department Care Team (Latest Contact Info) Description 01/05/2025 9:40 AM CDT Hospital Encounter [facility] - Perioperative Surgery [address] [place] [address] [place] Friedman [place] [id number] [place] [address] [place] [address] Surgery General 01/05/2025 9:40 AM CDT - 01/05/2025 11:03 AM CDT Surgery [facility] - Perioperative Surgery [address] [place] [address] Bridger Friedman MD [address] [place] [address] [place] [phone] LEFT ARM PSEUDOANEURYSM RESECTIONA AND ACCUSEAL 01/05/2025 10:00 AM CDT Procedure visit [facility] Surgery [address] [place] [address], [address] [phone] Bridger Friedman MD [address] [place] [address] 01/21/2025 1:10 PM CDT Office Visit [facility] - [address] [address] Kim Davalos, RESOLUTION EXPERT-CAR MOVER [address] [place] [phone] 02/09/2025 2:15 PM CDT Hospital Encounter [facility] [address] [address] ENDOSCOPY [address] [place] [address] Aldo Knox MD [address] [place] [phone] Surgery General 02/09/2025 2:15 PM CDT - 02/09/2025 3:00 PM CDT Surgery [facility] [address] [address] ENDOS[facility] [place] [address] Aldo Knox MD [address] [place] [phone] COLONOSCOPY SCREEN--extended prep---dialysis pt--stat k+ 04/01/2025 11:00 AM CDT Appointment [facility] Vascular Services [address] [facility], [address] [place] [address] [place] [address] [facility] [address] [place] [address] Scheduled Procedures Name Priority Associated [...] documented as of this encounter Care Teams Investigator Fraud Relationship Specialty Start Date End Date Meggan Littlejohn MD [address] [place], [place] [phone] PCP - General Internal Medicine 03/10/18 07/14/18 Gilles Morrison, CYRIL-CAR MOVER [address] [place] [address] PCP - General Nurse Practitioner 07/15/18 12/19/24 Griffin Velasquez PA [address] [place] [address] PCP - General Physician Chartered Accountant 12/20/24 documented as of this encounter
--- OUTSIDE RECORDS SUMMARY | 2024-12-31 18:43 | XMS_ITS | Data Portability ---
Author Organization [facility] Address [address] [address] Care Team Providers Care Art Objects Salesperson Name Role Phone CHERELLE PACHECO Power Wheelchair Mechanic RIYA CROWE Water Resources Engineer ALVINA VELASQUEZ Primary Care Provider Assessment No assessment recorded. Plan of Treatment Reminders Order Date Submit Date Provider Last Modified By Organization Details Last Modified Time Details Appointments ANY 2024 03:30P Nisreen Velasquez PA-C Not available Not available Not available ANY 2024 09:30A Nisreen Velasquez PA-C Not available Not available Not available Lab HbA1c (hemoglob in A1c), blood 2023 024 [facility], [address] [place] [address], [address], [place], [address], 09/07/2024 16:36:12 lipid panel, serum 2023 024 [facility], [address] [place] [address], [address], [place], [address], 09/15/2024 10:41:51 TSH, ultra-sen sitive, serum 2023 024 [place] [facility], [address] [place] [address], [address], [place], [address], 12/04/2023 11:14:55 H pylori urea breath test, co2 infrared 2023 024 [facility], [address] [facility], [address], [place], [address], 12/06/2023 17:10:36 Referral gastroent erologist referral [facility]24 [facility], [address] [facility], [place], [address], 12/18/2024 09:45:25 physical therapist referral 2024 [facility], [address] [place], [address], 12/24/2024 16:15:45 physical therapist referral - OA of the left knee 2023 [facility], [address] [place], [address], 01/23/2024 18:08:41 gastroent erologist referral - Chronic Heartburn 2023 024 ASHLEE Garces MD, [address], [place], [address], 02/07/2024 12:00:57 Procedures None recorded. Surgeries None recorded. Imaging XR, knee - Pain, recent fall 2023 024 [facility]), [address] [place], [address], 12/03/2023 13:06:37 Medication Orders cephalexi n 500 mg capsule [facility]24 [facility]25 [facility] [place], [address], 12/31/2024 16:31:12 ondansetr on 4 mg disintegr ating tablet 2024 025 [facility], [facility] [place], [address], 10/27/2024 10:27:34 Trulicity 1.5 mg/0.5 mL subcutane ous pen injector 2024 025 [place] [facility], [facility] [address], [place], [address], 10/27/2024 10:27:33 omeprazol e 20 mg capsule,d elayed release 2024 025 [facility], [facility] [address], [place], [address], 10/27/2024 10:27:33 atorvasta tin 40 mg tablet 2024 025 [facility], [facility] [address], [place], [address], 10/27/2024 10:27:35 carvedilo l 12.5 mg tablet 2024 025 [facility], [facility] [address], [place], [address], 10/27/2024 10:27:34 nifedipin e ER 90 mg tablet,ex tended release 2024 025 [facility], [facility] [place], [address], 10/27/2024 10:27:33 Patient TargetsNo targets recorded. Patient Instructions Encounter Date Encounter Id Patient Instructions Last Modified By Organization Details Last Modified Time 11/25/2023 [id number] cervical disc disease: care instructions oajao Not available 11/25/2023 16:20:03 A healthy lifestyle: care instructions oajao Not available 11/25/2023 15:43:48 Indigestion (Dyspepsia): Care Instructions oajao Not available 11/25/2023 16:21:41 body mass index: care instructions oajao Not available 11/25/2023 15:43:31 learning about healthy weight oajao Not available 11/25/2023 15:43:31 Labs Jaz szymanski return with all her medications Wrist splint WC Follow up in 4 weeks (30 minutes) oajao Not available 11/25/2023 16:20:25 Detailed visit oajao Not available 0 11/25/2023 20:35:23 01/02/2024 [id number] knee arthritis: care instructions oajao Not available 01/02/2024 11:21:32 PT GI Lifestyle changes Most recent consultation note from Dr Crowe ER with severe chest pain Labs in 5 months Follow up in 6 months and PRN oajao Not available 01/02/2024 11:25:14 10/27/2024 [id number] nausea and vomiting: care instructions jnanney Not available 10/27/2024 10:27:26 learning about type 2 diabetes jnanney Not available 10/27/2024 10:27:26 type 2 diabetes: care instructions jnanney Not available 10/27/2024 10:27:26 learning about high blood pressure jnanney Not available 10/27/2024 10:27:26 12/17/2024 [id number] A healthy lifestyle: care instructions jnanney Not available 12/17/2024 12:11:21 learning about high blood pressure jnanney Not available 12/17/2024 12:11:21 chronic kidney disease: care instructions jnanney Not available 12/17/2024 12:06:44 learning about chronic kidney disease jnanney Not available 12/17/2024 12:06:44 12/31/2024 [id number] low blood pressure: care instructions jnanney Not available 12/31/2024 16:47:46 chronic kidney disease: care instructions jnanney Not available 12/31/2024 16:47:46 learning about chronic kidney disease jnanney Not available 12/31/2024 16:47:46 Reason for Referral Physical Therapist Referral for Osteoarthritis of knee OA of the left knee OA of the left knee Referring Physician: Meggan Littlejohn, Internal Medicine, Encounter Date: 01/02/2024 Search Engine Optimization Specialist Referral for Heartburn Chronic Hearburn Chronic Heartburn Referring Physician: Meggan Littlejohn, Internal Medicine, Encounter Date: 01/02/2024 Search Engine Optimization Specialist Referral for Screening for malignant neoplasm of colon Referring Physician: Alvina Velasquez [facility], Encounter Date: 12/17/2024 Physical Therapist Referral for Muscle weakness of limb Referring Physician: Alvina Velasquez [facility], Encounter Date: 12/17/2024 Results Created Date Observation Date Name Description Value Unit Range Abnormal Flag Note LastModifiedBy Organization Detail LastModifiedTime 12/03/19 24 12/04/2023 TSH RFX ON ABNOR MAL TO FREE T4 TSH 2.240 uIU/m L 0.450- 4.500 Not Available [facility]) [address] [facility] [address], [place], [address], 12/04/2023 11:14:55 12/05/19 24 12/06/2023 H PYLOR I BREAT H TEST H pylori breath test NEGATI VE negati ve Not Available [facility] ([facility]) [address] [facility] [address], [place], [address], 12/06/2023 17:10:36 10/14/19 25 10/13/2024 Sodiu m [Mole s/vol ume] in Serum or Plasm a sodium [moles/volum e] in serum or plasma 138 text: 132.0- 146.0 Not Available Not Available 12/31/2024 16:27:18 10/14/19 25 10/13/2024 Potas sium [Mole s/vol ume] in Serum or Plasm a potassium [moles/volum e] in serum or plasma 5.4 text: 3.5-5. 5 Not Available Not Available 12/31/2024 16:27:18 10/14/19 25 10/13/2024 Phosp hate [Mass /volu me] in Serum or Plasm a phosphate [mass/volume ] in serum or plasma 4.9 text: 2.4-5. 1 Not Available Not Available 12/31/2024 16:27:18 10/14/19 25 10/13/2024 Chlor keri [Mole s/vol ume] in Serum or Plasm a chloride [moles/volum e] in serum or plasma 101 text: 99.0-1 09.0 Not Available Not Available 12/31/2024 16:27:18 10/14/19 25 10/13/2024 Calci um [Mass /volu me] in Serum or Plasm a calcium [mass/volume ] in serum or plasma 9.4 text: 8.7-10 .4 Not Available Not Available 12/31/2024 16:27:18 10/14/19 25 10/13/2024 Urea nitro gen [Mass /volu me] in Serum or Plasm a --pos t dialy sis urea nitrogen [mass/volume ] in serum or plasma --post dialysis 4 text: 9.0-23 .0 low Not Available Not Available 12/31/2024 16:27:18 10/14/19 25 10/13/2024 Prote in [Mass /volu me] in Serum or Plasm a protein [mass/volume ] in serum or plasma 6.8 text: 5.7-8. 2 Not Available Not Available 12/31/2024 16:27:19 10/14/19 25 10/13/2024 Aspar winter amino trans feras e [Enzy matic activ ity/v olume ] in Serum or Plasm a aspartate aminotransfe rase [enzymatic activity/vol ume] in serum or plasma 13 text: 0.0-33 .0 Not Available Not Available 12/31/2024 16:27:19 10/14/19 25 10/13/2024 Lacta te dehyd rogen ase [Enzy matic activ ity/v olume ] in Serum or Plasm a lactate dehydrogenas e [enzymatic activity/vol ume] in serum or plasma 163 text: 120.0- 246.0 Not Available Not Available 12/31/2024 16:27:19 10/14/19 25 10/13/2024 Nikos ne amino trans feras e [Enzy matic activ ity/v olume ] in Serum or Plasm a alanine aminotransfe rase [enzymatic activity/vol ume] in serum or plasma 9 text: 10.0-4 9.0 low Not Available Not Available 12/31/2024 16:27:19 10/14/19 25 10/13/2024 Creat inine [Mass /volu me] in Serum or Plasm a creatinine [mass/volume ] in serum or plasma 7.63 text: 0.5-1. 1 high Not Available Not Available 12/31/2024 16:27:19 10/14/19 25 10/13/2024 Bicar bonat e [Mole s/vol ume] in Serum or Plasm a bicarbonate [moles/volum e] in serum or plasma 28 text: 20.0-3 1.0 Not Available Not Available 12/31/2024 16:27:18 10/14/19 25 10/13/2024 Urea nitro gen [Mass /volu me] in Serum or Plasm a urea nitrogen [mass/volume ] in serum or plasma 53 text: 9.0-23 .0 high Not Available Not Available 12/31/2024 16:27:18 10/14/19 25 10/13/2024 Album in [Mass /volu me] in Serum or Plasm a by Bromo creso l green (BCG) dye shaun ng metho d albumin [mass/volume ] in serum or plasma by bromocresol green (bcg) dye binding method 3.7 text: 3.4-4. 8 Not Available Not Available 12/31/2024 16:27:18 10/14/19 25 10/13/2024 Alkal ine phosp hatas e [Enzy matic activ ity/v olume ] in Serum or Plasm a alkaline phosphatase [enzymatic activity/vol ume] in serum or plasma 76 text: 46.0-1 16.0 Not Available Not Available 12/31/2024 16:27:18 10/14/19 25 10/13/2024 Eosin ophil s [#/vo lume] in Blood by Autom ated count eosinophils [#/volume] in blood by automated count 612 text: 0.0-70 0.0 Not Available Not Available 12/31/2024 16:27:19 10/14/19 25 10/13/2024 Plate lets [#/vo lume] in Blood by Autom ated count platelets [#/volume] in blood by automated count 203 text: 140.0- 450.0 Not Available Not Available 12/31/2024 16:27:19 10/14/19 25 10/13/2024 MCV [Enti tic mean volum e] in Red Blood Cells by Autom ated count MCV [entitic mean volume] in red blood cells by automated count 91.5 text: 80.0-1 00.0 Not Available Not Available 12/31/2024 16:27:19 10/14/19 25 10/13/2024 Hemog lobin [Mass /volu me] in Blood hemoglobin [mass/volume ] in blood 11.4 text: 12.0-1 6.0 low Not Available Not Available 12/31/2024 16:27:19 10/14/19 25 10/13/2024 Hemat ocrit [Volu me Fract ion] of Blood by Autom ated count hematocrit [volume fraction] of blood by automated count 35.5 text: 37.0-4 7.0 low Not Available Not Available 12/31/2024 16:27:19 10/14/19 25 10/13/2024 Eryth rocyt es [#/vo lume] in Blood by Autom ated count erythrocytes [#/volume] in blood by automated count 3.87 text: 3.85-5 .2 Not Available Not Available 12/31/2024 16:27:19 10/14/19 25 10/13/2024 Leuko cytes [#/vo lume] in Blood by Autom ated count leukocytes [#/volume] in blood by automated count 6.6 text: 4.0-11 .0 Not Available Not Available 12/31/2024 16:27:19 10/29/19 25 10/28/[address] [Mass /volu me] in Serum or Plasm a parathyrin.i ntact [mass/volume ] in serum or plasma 164 text: 18.0-8 0.0 high Not Available Not Available 12/31/2024 16:27:18 10/29/19 25 10/28/2024 Hemog lobin [Mass /volu me] in Blood hemoglobin [mass/volume ] in blood 11.9 text: 12.0-1 6.0 low Not Available Not Available 12/31/2024 16:27:18 11/11/19 25 11/10/2024 Urea nitro gen [Mass /volu me] in Serum or Plasm a --pos t dialy sis urea nitrogen [mass/volume ] in serum or plasma --post dialysis 15 text: 9.0-23 .0 Not Available Not Available 12/31/2024 16:27:18 11/11/19 25 11/10/2024 Urea nitro gen [Mass /volu me] in Serum or Plasm a urea nitrogen [mass/volume ] in serum or plasma 63 text: 9.0-23 .0 high Not Available Not Available 12/31/2024 16:27:18 11/11/19 25 11/10/2024 Phosp hate [Mass /volu me] in Serum or Plasm a phosphate [mass/volume ] in serum or plasma 5.2 text: 2.4-5. 1 high Not Available Not Available 12/31/2024 16:27:18 11/11/19 25 11/10/[address] [Mass /volu me] in Serum or Plasm a parathyrin.i ntact [mass/volume ] in serum or plasma 205 text: 18.0-8 0.0 high Not Available Not Available 12/31/2024 16:27:18 11/11/19 25 11/10/2024 Hemog lobin [Mass /volu me] in Blood hemoglobin [mass/volume ] in blood 11.5 text: 12.0-1 6.0 low Not Available Not Available 12/31/2024 16:27:18 11/12/19 25 11/11/2024 Calci um [Mass /volu me] in Serum or Plasm a calcium [mass/volume ] in serum or plasma 9.6 text: 8.7-10 .4 Not Available Not Available 12/31/2024 16:27:18 11/25/19 25 11/24/2024 Prote in [Mass /volu me] in Serum or Plasm a protein [mass/volume ] in serum or plasma 6.6 text: 5.7-8. 2 Not Available Not Available 12/31/2024 16:27:17 11/25/19 25 11/24/2024 Aspar winter amino trans feras e [Enzy matic activ ity/v olume ] in Serum or Plasm a aspartate aminotransfe rase [enzymatic activity/vol ume] in serum or plasma 14 text: 0.0-33 .0 Not Available Not Available 12/31/2024 16:27:17 11/25/19 25 11/24/2024 Lacta te dehyd rogen ase [Enzy matic activ ity/v olume ] in Serum or Plasm a lactate dehydrogenas e [enzymatic activity/vol ume] in serum or plasma 157 text: 120.0- 246.0 Not Available Not Available 12/31/2024 16:27:17 11/25/19 25 11/24/2024 Nikos ne amino trans feras e [Enzy matic activ ity/v olume ] in Serum or Plasm a alanine aminotransfe rase [enzymatic activity/vol ume] in serum or plasma 8 text: 10.0-4 9.0 low Not Available Not Available 12/31/2024 16:27:17 11/25/19 25 11/24/2024 Creat inine [Mass /volu me] in Serum or Plasm a creatinine [mass/volume ] in serum or plasma 7.59 text: 0.55-1 .02 high Not Available Not Available 12/31/2024 16:27:17 11/25/19 25 11/24/2024 Bicar bonat e [Mole s/vol ume] in Serum or Plasm a bicarbonate [moles/volum e] in serum or plasma 22 text: 20.0-3 1.0 Not Available Not Available 12/31/2024 16:27:17 11/25/19 25 11/24/2024 Album in [Mass /volu me] in Serum or Plasm a by Bromo creso l green (BCG) dye shaun ng metho d albumin [mass/volume ] in serum or plasma by bromocresol green (bcg) dye binding method 3.7 text: 3.2-4. 8 Not Available Not Available 12/31/2024 16:27:17 11/25/19 25 11/24/2024 Alkal ine phosp hatas e [Enzy matic activ ity/v olume ] in Serum or Plasm a alkaline phosphatase [enzymatic activity/vol ume] in serum or plasma 97 text: 46.0-1 16.0 Not Available Not Available 12/31/2024 16:27:17 11/25/19 25 11/24/2024 Eosin ophil s [#/vo lume] in Blood by Autom ated count eosinophils [#/volume] in blood by automated count 644 text: 0.0-70 0.0 Not Available Not Available 12/31/2024 16:27:17 11/25/19 25 11/24/2024 Plate lets [#/vo lume] in Blood by Autom ated count platelets [#/volume] in blood by automated count 262 text: 140.0- 450.0 Not Available Not Available 12/31/2024 16:27:17 11/25/19 25 11/24/2024 Hemog lobin [Mass /volu me] in Blood hemoglobin [mass/volume ] in blood 12.6 text: 12.0-1 6.0 Not Available Not Available 12/31/2024 16:27:17 11/25/19 25 11/24/2024 MCV [Enti tic mean volum e] in Red Blood Cells by Autom ated count MCV [entitic mean volume] in red blood cells by automated count 94.4 text: 80.0-1 00.0 Not Available Not Available 12/31/2024 16:27:17 11/25/19 25 11/24/2024 Hemat ocrit [Volu me Fract ion] of Blood by Autom ated count hematocrit [volume fraction] of blood by automated count 38.9 text: 37.0-4 7.0 Not Available Not Available 12/31/2024 16:27:17 11/25/19 25 11/24/2024 Eryth rocyt es [#/vo lume] in Blood by Autom ated count erythrocytes [#/volume] in blood by automated count 4.12 text: 3.85-5 .2 Not Available Not Available 12/31/2024 16:27:17 11/25/19 25 11/24/2024 Leuko cytes [#/vo lume] in Blood by Autom ated count leukocytes [#/volume] in blood by automated count 8.6 text: 4.0-11 .0 Not Available Not Available 12/31/2024 16:27:17 11/26/19 25 11/25/2024 Sodiu m [Mole s/vol ume] in Serum or Plasm a sodium [moles/volum e] in serum or plasma 138 text: 136.0- 145.0 Not Available Not Available 12/31/2024 16:27:17 11/26/19 25 11/25/2024 Potas sium [Mole s/vol ume] in Serum or Plasm a potassium [moles/volum e] in serum or plasma 4.7 text: 3.5-5. 1 Not Available Not Available 12/31/2024 16:27:17 11/26/19 25 11/25/2024 Chlor keri [Mole s/vol ume] in Serum or Plasm a chloride [moles/volum e] in serum or plasma 99 text: 98.0-1 07.0 Not Available Not Available 12/31/2024 16:27:16 12/03/19 25 12/02/2024 Hemog lobin [Mass /volu me] in Blood [...] by Bromo creso l green (BCG) dye shaun ng metho d albumin [mass/volume ] in [...] high Not Available Not Available 12/31/2024 16:27:16 12/03/19 24 12/03/2023 XR, knee No observ ation record ed. [facility] [address] [place], [address], 01/02/2024 11:07:22 01/09/20 24 01/07/2024 trans -thor acic echoc ardio gram (TTE) (PROC ) No observ ation record ed. [facility] [address], [place], [address], 01/09/2024 19:42:48 02/19/2002/19/2024 CT, head, w/o contr ast No observ ation record ed. [address], [place], [address], 02/21/2024 09:10:21 05/21/20 24 05/21/2024 XR, chest No observ ation record ed. [address], [place], [address], 05/22/2024 12:36:10 10/02/19 25 10/01/2024 MAMMO , scree rene, digit al, bilat eral No observ ation record ed. [facility] [address] [place], [address], 10/09/2024 11:42:39 Result Notes None recorded. Problems Name Problem SNOMED Code Status Onset Date Resolution Date Notes Provider Name and Address Organization Details Recorded Time Chronic ulcer of foot 070682998 Active Meggan Littlejohn MD Attn: Accounting ,[address], [place], [address] [place] [address] , [place] [facility] 10:46:44 Type 2 diabetes mellitus with ulcer 767322049 Active Meggan Littlejohn MD Attn: Accounting ,[address], [place], [address] [place] [address] , [place] [facility] 10:46:45 Chest pain 29794329 Active Meggan Littlejohn MD Attn: Accounting ,[address], [place], [address] [place] [address] , [place] [facility] 10:48:50 D-dimer above reference range 763877078 Active Meggan Littlejohn MD Attn: Accounting ,[address] [place], [address] , [place] [facility] 10:48:50 Diabetes mellitus 57289054 Active Meggan Littlejohn MD Attn: Accounting ,[address] [place], [address] , [place] [facility] 16:12:38 Folliculi tis 72432285 Active Meggan Littlejohn MD Attn: Accounting ,[address] [place], [address] , [place] [facility] 10:48:50 Hallux valgus 927612398 Active Meggan Littlejohn MD Attn: Accounting ,[address] [place], [address] , [place] [facility] 10:48:50 Type 2 diabetes mellitus 55817694 Active Meggan Littlejohn MD Attn: Accounting ,[address] [place], [address] , [place] [facility] 10:48:50 Obesity 539529748 Active Not Available [facility] 2 09:25:20 Hypertens mayra disorder 61833688 Active Meggan Littlejohn MD Attn: Accounting ,[address] [facility], [place], [address] , [place] [facility] 10:46:45 Hyperlipi demia 84123960 Active Meggan Littlejohn MD Attn: Accounting ,[address] [facility], [place], [address] , [place] [facility] 10:48:51 Congestiv e heart failure 40151850 Active Not Available [facility] 09:25:21 Anxiety 28686285 Active Meggan Littlejohn MD Attn: Accounting ,[address] [facility], [place], [address] , [place] [facility] 10:48:51 Mammograp hy abnormal 445663387 Active Meggan Littlejohn MD Attn: Accounting ,[address] [facility], [place], [place], [address] [place] [address] , [place] [facility] 10:48:50 Constipat ion 73338228 Active Meggan Littlejohn MD Attn: Accounting ,[address] [facility], [place], [address] , [place] [facility] 10:48:51 Edema of lower extremity 599618282 Active Meggan Littlejohn MD Attn: Accounting ,[address] [facility], [place], [place], [address] [place] [address] , [place] [facility] 10:48:50 Pneumonia 001498670 Active 2015 Meggan Littlejohn MD Attn: Accounting ,[address] [facility], [place], [address] , [place] [facility] 2 10:46:44 Administr ation of pneumococ melinda vaccine Active 2015 Meggan Littlejohn MD Attn: Accounting ,[address] [facility], [place], [address] , [place] [facility] 10:48:50 Pain in bilateral legs 38185487328 040006 Active 2015 Meggan Littlejohn MD Attn: Accounting ,[address] [facility], [place], [address] , [place] [facility] 2 10:48:50 Contact dermatiti s 37791988 Active 2016 Meggan Littlejohn MD Attn: Accounting ,[address] [facility], [place], [address] , [place] [facility] 10:48:50 Hypothyro idism 62515025 Active 2016 Meggan Littlejohn MD Attn: Accounting ,[address] [facility], [place], [address] , [place] [facility] 2 10:48:51 Pulmonary hypertens ion 47407537 Active 2016 Meggan Littlejohn MD Attn: Accounting ,[address] [place], [address] , [place] [facility] 10:46:44 Bilateral arthritis of knees 42349345182 69731 Active 2016 Meggan Littlejohn MD Attn: Accounting ,[address] [facility], [place], [address] , [place] [facility] 10:48:50 Otitis media 48353325 Active 2016 Meggan Littlejohn MD Attn: Accounting ,[address] [place], [address] , [place] [facility] 10:48:50 Anemia 713818500 Active 2016 Meggan Littlejohn MD Attn: Accounting ,[address] [facility], [place], [address] , [place] [facility] 2 10:48:50 Screening for malignant neoplasm of breast Active 2016 Meggan Littlejohn MD Attn: Accounting ,[address] [place], [address] , [place] [facility] 10:48:51 Administr ation of influenza vaccine Active 2016 Meggan Littlejohn MD Attn: Accounting ,[address] [place], [address] , [place] [facility] 2 10:48:51 Flank pain 781483235 Active 2016 Meggan Littlejohn MD Attn: Accounting ,[address] [place], [address] , [place] [facility] 10:48:50 Nuclear senile cataract 687661842 Active 2016 Meggan Littlejohn MD Attn: Accounting ,[address] [place], [address] , [place] [facility] 10:48:50 Acute bronchiti s 65970493 Active 2016 Meggan Littlejohn MD Attn: Accounting ,[address] [place], [address] , [place] [facility] 10:48:50 Sleep apnea 03022364 Active 2016 Meggan Littlejohn MD Attn: Accounting ,[address] [place], [address] , [place] [facility] 10:48:50 Pre-surge ry testing Active 2016 Meggan Littlejohn MD Attn: Accounting ,[address] [place], [address] , [place] [facility] 10:48:50 Serum creatinin e outside reference range 025636752 Active 2016 Meggan Littlejohn MD Attn: Accounting ,[address] [place], [address] , [place] [facility] 10:48:51 Upper respirato ry infection 05267769 Active 2017 Meggan Littlejohn MD Attn: Accounting ,[address] [place], [address] , [place] [facility] 10:48:50 Kidney stone 79225852 Active 2017 Meggan Littlejohn MD Attn: Accounting ,[address] [place], [address] , [place] [facility] 10:48:50 Gastroeso phageal reflux disease 026135738 Active 2017 Meggan Littlejohn MD Attn: Accounting ,[address] [place], [address] , [place] [facility] 10:48:51 Serum vitamin B12 below reference range 837084451 Active 2017 Meggan Littlejohn MD Attn: Accounting ,[address] [place], [address] , [place] [facility] 10:48:50 Acute sinusitis 53699833 Active 2017 Meggan Littlejohn MD Attn: Accounting ,[address] [place], [address] , [place] [facility] 10:48:51 Chronic renal failure 32226403 Active 2017 Meggan Littlejohn MD Attn: Accounting ,[address] [place], [address] , [place] [facility] 10:48:51 Acute urinary tract infection 853280473 Active 2017 Meggan Littlejohn MD Attn: Accounting ,[address] [place], [address] , [place] [facility] 10:48:50 Tuberculo sis screening Active 2017 Meggan Littlejohn MD Attn: Accounting ,[address] [place], [address] , [place] [facility] 10:48:51 Hepatitis B screening Completed 201704/08/2018 Amol Morrison PA-C Attn: Accounting ,[address] [place], [address] , [place] [facility] 8 12:13:49 Hepatitis B screening required 456219255 Active 2017 Meggan Littlejohn MD Attn: Accounting ,[address] [place], [address] , [place] [facility] 2 10:48:50 Pain of right shoulder joint 08186946059 040902 Active 2017 Meggan Littlejohn MD Attn: Accounting ,[address] [facility], [place], [address] , [place] [facility] 2 10:48:50 Chronic kidney disease 348047835 Active 2018 Meggan Littlejohn MD Attn: Accounting ,[address] [facility], [place], [address] , [place] [facility] 2 10:46:45 Essential hypertens ion 22396922 Active 2019 Megagn Littlejohn MD Attn: Accounting ,[address] [facility], [place], [address] , [place] [facility] 2 10:48:50 Vitamin D below reference range 300045755 Active 2020 Meggan Littlejohn MD Attn: Accounting ,[address] [facility], [place], [address] , [place] [facility] 2 10:48:50 Restless legs 36486389 Active 2020 Meggna Littlejohn MD Attn: Accounting ,[address] [facility], [place], [address] , [place] [facility] 2 10:48:50 Candidias is 58938219 Active 2021 Meggan Littlejohn MD Attn: Accounting ,[address] [facility], [place], [address] , [place] [facility] 2 10:48:50 Irritable bowel syndrome 62776658 Active 2021 Meggan Littlejohn MD Attn: Accounting ,[address] [facility], [place], [address] , [place] [facility] 2 10:48:50 End stage renal failure on dialysis 809279832 Active 2021 Meggan Littlejohn MD Attn: Accounting ,[address] [facility], [place], [address] , [place] [facility] 2 10:48:50 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 763224086 Active 2021 Meggan Littlejohn MD Attn: Accounting ,[address] [facility], [place], [place], [address] [place] [address] , [facility] 2 10:48:50 Legal blindness 66194465 Active 2021 Meggan Littlejohn MD Attn: Accounting ,[address] [facility], [place], [address] [place] [address] , [facility] 2 11:22:08 Referral to ophthalmo logist declined by subject 362103537 Active 2021 Meggan Littlejohn MD Attn: Accounting ,[address] [facility], [place], [address] [place] [address] , [facility] 2 11:50:18 Colonosco py declined 44603591868 9100 Active 2021 Meggan Littlejohn MD Attn: Accounting ,[address] [facility], [place], [address] [place] [address] , [facility] 2 15:35:39 Tobacco dependenc e in remission 812904188 Active 2021 Meggan Littlejohn MD Attn: Accounting ,[address], [place], [address] [place] [address] , [facility] 2 15:35:51 History of SARS-CoV- 2 82829966104 9190962 Active 2022 Meggan Littlejohn MD Attn: Accounting ,[address] [facility], [place], [address] [place] [address] , [facility] 3 16:09:29 Colon cancer screening declined 91139798652 109 Active 2022 Meggan Littlejohn MD Attn: Accounting ,[address], [place], [address] [place] [address] , [facility] 3 16:29:14 SARS-CoV- 2 vaccinati on declined 6012867181 Active 2022 Meggan Littlejohn MD Attn: Accounting ,[address] [facility], [place], [address] , [place] [facility] 3 16:29:15 Ulnar neuropath y of left arm 65193490377 9107 Active 2023 Meggan Littlejohn MD Attn: Accounting ,[address] [facility], [place], [address] , [place] [facility] 4 15:46:15 Chronic cerebral ischemia 272545230 Active 2023 Meggan Littlejohn MD Attn: Accounting ,[address] [facility], [place], [address] , [place] [facility] 4 16:20:44 Recurrent falls 912624615 Active 2023 Meggan Littlejohn MD Attn: Accounting ,[address] [facility], [place], [address] , [place] [facility] 4 20:32:26 Osteoarth ritis of joint of right shoulder region 33888176050 9100 Active 2023 Meggan Littlejohn MD Attn: Accounting ,[address] [facility], [place], [address] , [place] [facility] 4 20:35:46 Osteoarth ritis of left hip joint 63052270843 9108 Active 2023 Meggan Littlejohn MD Attn: Accounting ,[address] [facility], [place], [address] , [place] [facility] 4 20:39:08 Heartburn 09517678 Active 2023 Meggan Littlejohn MD Attn: Accounting ,[address] [facility], [place], [address] , [place] [facility] 4 20:39:17 Degenerat ion of cervical intervert ebral disc 60945911 Active 2023 Meggan Littlejohn MD Attn: Accounting ,[address] [facility], [place], [address] , [place] [facility] 4 20:46:07 History of thyroid disorder 709283973 Active 2023 Meggan Littlejohn MD Attn: Accounting ,[address] [facility], [place], [address] , [facility] 4 20:46:11 Notes:Some problems listed i n Documents: #[id number], #[id number], #[id number], #[id number], #[id number], #[id number] could not be added to this patient's chart. Please review these documents and add these problems to the patient's chart manually as needed. Problem Notes None recorded. Procedures Surgical History Date Name Laterality Status Provider Name and Address Organization Details Recorded Time 4 Diabetic Foot Exam completed Meggan Littlejohn MD Attn: Accounting,[address] [facility], [place], [address], [facility] 08/01/2023 12:21:21 0 extraction of cataract completed Margaret Hobbs MA [facility] 02/11/2020 11:53:25 9 procedure completed Margaret Hobbs MA [facility] 04/09/2019 12:01:52 Imaging Results None recorded. Procedure Notes None recorded. Medical Equipment None Reported. Allergies Allergen ID Allergen Name Allergen Category Reaction Reaction Severity Criticality Documentation Date Start Date Code Code System Note Provider Name and Address Organization Details Recorded Time 744137 hydrochlo rothiazid e medicatio n other Not available Not available 05/15/2022 5487 RxNorm Meggan Littlejohn MD Attn: Genevain g,[address] [facility], [place], [address], [facility] 2 10:55:11 31390 captopril / hydrochlo rothiazid e medicatio n hives Not available Not available 09/27/2015 37542 7 RxNorm Layla Velarde MA null, [facility] 6 12:39:51 Medications Name Sig Start Date [...] 10 days. 09/20 completed Per v/o Guillermo JENSEN Not Available Not Available Not Available doxycycli [...] route for 10 days. 09/20 completed Per iris/o Guillermo JENSEN Not Available Not Available Not Available [...] Details Last Updated DateTime 5 170.18 cm 28.5 kg/m2 83250.8 1 g 97 % 97 % 69 /min 138/76 mm[Hg] Iza Danielle [place] [facility] 5 10:02:48 Date Recorded Body height Body mass index (BMI) Body weight Oxygen saturation Oxygen saturation in Arterial blood by Pulse oximetry Heart rate Body temperature Systolic And Diastolic Provider Name and Address Organization Details Last Updated DateTime 4 170.18 cm 31.5 kg/m2 54396.0 7 g 98 % 98 % 72 /min 97.8 [degF] 114/50 mm[Hg] Sheryl Nascimento MA [facility] 4 15:38:26 Date Recorded Body height Body mass index (BMI) Body weight Respiratory rate Heart rate Oxygen saturation Oxygen saturation in Arterial blood by Pulse oximetry Systolic And Diastolic Provider Name and Address Organization Details Last Updated DateTime 5 170.18 cm 28.5 kg/m2 01535.8 1 g 16 /min 80 /min 100 % 100 % 125/74 mm[Hg] Betzy Mena MA [facility] 5 11:52:54 Date Recorded Body height Body mass index (BMI) Body weight Oxygen saturation Oxygen saturation in Arterial blood by Pulse oximetry Heart rate Systolic And Diastolic Provider Name and Address Organization Details Last Updated DateTime 5 170.18 cm 28.2 kg/m2 40151.6 3 g 99 % 99 % 78 /min 94/58 mm[Hg] Iza Danielle MA [facility] 5 16:34:24 Date Recorded Body height Body mass index (BMI) Body weight Heart rate Respiratory rate Systolic And Diastolic Provider Name and Address Organization Details Last Updated DateTime 4 170.18 cm 32.9 kg/m2 76379.6 8 g 74 /min 16 /min 134/70 mm[Hg] Sheryl Nascimento MA [facility] 4 10:47:44 Social History Question Answer Notes LastModified by Organizat ion Details LastModified Time Tobacco Smoking Status Former Smoker 1989 Meggan Littlejohn MD Attn: Accounting,[address] [place], [address], [facility] 05/15/2022 11:07:32 Do You Have An Advance [...] anxious, or unable to sleep at night)? [id number] Information not available 09/20/2020 Family History Relationship [...] Immunizations Vaccine Type Date Status Note Provider Elias cardona and Address Organization Details Recorded Time influenza, unspecified formulation 2 completed Meggan Littlejohn MD Attn: Accounting,[address] [place], [address], [place] [facility] 05/15/2022 10:46:19 Influenza, split virus, quadrivalent, PF 6 completed Meggan Littlejohn MD Attn: Accounting,[address] [facility], [place], [address], [place] [facility] 05/15/2022 10:46:19 pneumococcal polysaccharide PPV23 6 completed Not Available [facility] 06/27/2019 02:39:52 influenza, unspecified formulation 3 completed Meggan Littlejohn MD Attn: Accounting,[address] [facility], [place], [address], [place] [facility] 08/01/2023 11:45:05 influenza, unspecified formulation 2 completed Not Available [facility] 12/31/2024 16:27:18 Influenza, split virus, quadrivalent, preservative 7 completed Not Available [facility] 06/27/2019 02:34:00 Influenza, split virus, quadrivalent, preservative 9 completed Not Available [facility] 06/27/2019 02:38:43 Influenza, split virus, quadrivalent, preservative 0 completed Margaret Hobbs [place], [place] [facility] 04/14/2020 10:36:24 Influenza, split virus, quadrivalent, preservative 1 completed Maggy Brooks [place], [place] [facility] 05/25/2021 10:48:19 Pneumococcal conjugate PCV20, polysaccharide QHF621 conjugate, adjuvant, PF 3 completed Sheryl Nasc[place] [facility] 10/09/2022 10:45:27 Tdap 4 completed Sheryl Nasc[place] [facility] 08/01/2023 16:57:15 Past Encounters Encounter ID Performer Location Encounter Start Date Encounter Closed Date Diagnosis/Indication Diagnosis SNOMED-CT Code Diagnosis ICD10 Code Diagnosis Note [id number] [facility] (Adult Med) [address] [place] [address] [id number] 0 09/27/2015 12:10:49 09/27/2015 14:34:15 Folliculitis 12592199 L73.9 Hallux valgus 423178044 M20.10 Type 2 meme betes mellitus 36961670 E11.9 Obesity 960999371 E66.9 Hypertensive disorder 38 673575 I10 Hyperlipidemia 08974783 E78.5 [id number] [facility] (Adult [facility]) [address] [place] [address] [id number] 0 10/26/2015 10:12:37 10/26/2015 11:28:01 Normal grief reaction 100486011 F43.20 Hyperlipidemia 06079008 E78.5 Hypertensive disorder 38 495515 I10 Obesity 514987740 E66.9 Type 2 meme betes mellitus 95228848 E11.9 [id number] MD [facility] (Adult Med) [address] [place] [address] 03043-135 0 12/21/2015 10:37:47 12/21/2015 11:20:29 Congestive heart failure 69683587 I50.9 Hyperlipidemia 42942196 E78.5 Hypertensive disorder 38 322687 I10 Obesity 600998066 E66.9 Type 2 meme betes mellitus 95097325 E11.9 Screening for malignant neoplasm of breast 177296972 Z12.31 Anxiety 68238902 F41.9 [id number] MD [facility] (Adult Med) [address] [place] [address] [id number] 0 02/22/2016 09:29:57 02/22/2016 10:53:31 Folliculitis 09826579 L73.9 Congestive heart failure 95028420 I50.9 Obesity 876336886 E66.9 Type 2 meme betes mellitus 20496995 E11.9 [facility] 19503773 K5 9.00 [id number] MD [facility] (Adult Med) [address] [place] [address] [id number] 03/28/2016 12:29:31 03/28/2016 13:28:39 Folliculitis 58768138 L73.9 Administra tion of pneumococcal vaccine 25228867 Z23 [id number] MD [facility] (Adult Med) [address] [place] [address] [id number] 07/17/2016 14:07:59 07/17/2016 14:54:53 Edema of lower extremity 068377336 R60.0 Contact dermatitis 97943 004 L25.9 Type 2 meme betes mellitus 73085293 E11.9 Anxiety 79272946 F41.9 Hyperlipidemia 15225464 E78.5 Hypertensive disorder 38 058948 I10 Obesity 509564054 E66.9 Congestive heart failure 52037123 I50.9 [id number] MD [facility] (Adult Med) [address] [place] [address] [id number] 0 10/09/2016 10:14:57 10/10/2016 09:26:01 Congestive heart failure 33364990 I50.9 Type 2 meme betes mellitus 56362696 E11.9 Obesity 876423804 E66.9 Hyperlipidemia 03299862 E78.5 Hypothyroidism 13150481 E03.9 [id number] [facility] (Adult [facility]) [address] [place] [address] [id number] 11/01/2016 10:54:39 11/01/2016 11:38:04 Congestive heart failure 99456414 I50.9 Type 2 meme betes mellitus 86104999 E11.9 Obesity 960979850 E66.9 Hypertensive disorder 38 348526 I10 Hyperlipidemia 01651646 E78.5 Anxiety 44396805 F41.9 Edema of l ower extremity 640735937 R60.0 Hypothyroidism 15902662 E03.9 [id number] MD [facility] (Adult Med) [address] [place] [address] [id number] 12/07/2016 09:20:51 12/07/2016 16:52:10 Pulmonary hypertension 00354491 I27.2 Hypothyroidism 12116991 E03.9 Congestive heart failure 95550580 I50.9 Type 2 meme betes mellitus 15639267 E11.9 Obesity 467448684 E66.9 Hypertensive disorder 38 241707 I10 Hyperlipidemia 89742383 E78.5 Bilateral arthritis of knees 1983469988 470690 M13.861 Otitis media 67782491 H6 6.92 [id number] MD [facility] (Adult Med) [address] [place] [address] [id number] 01/03/2017 11:31:13 01/03/2017 12:22:25 Type 2 diabetes mellitus 56565419 E11.9 Congestive heart failure 52479824 I50.9 Hypertensive disorder 38 895147 I10 Obesity 001809143 E66.9 Hypothyroidism 75863685 E03.9 Edema of l ower extremity 704103944 R60.0 Anxiety 00293206 F41.9 Hyperlipidemia 92282263 E78.5 Constipation 00852984 K5 9.00 Folliculitis 10955661 L7 3.9 Anemia 334821893 D64.9 Screening for malignant neoplasm of breast 307128927 Z12.31 [id number] MD [facility] (Adult Med) [address] [place] [address] [id number] 0 01/31/2017 10:49:52 01/31/2017 11:48:03 Hypothyroidism 20766175 E03.9 Anemia 829529347 D64.9 Pulmonary hypertension 04904104 I27.2 Anxiety 74903018 F41.9 Hyperlipidemia 00849473 E78.5 Hypertensive disorder 38 434077 I10 Congestive heart failure 95235192 I50.9 Type 2 meme betes mellitus 00688299 E11.9 [id number] [facility] [address] [place] [address] 93588-801 0 02/28/2017 11:16:22 03/04/2017 11:39:30 Congestive heart failure 62266456 I50.9 Type 2 meme betes mellitus 09688398 E11.9 Obesity 598593577 E66.9 Hypertensive disorder 38 492153 I10 Hyperlipidemia 00897129 E78.5 Anxiety 77147013 F41.9 Edema of l ower extremity 722582619 R60.0 Administra tion of influenza vaccine 41782115 Z23 [id number] [facility] [address] [place] [address] [id number] 0 03/06/2017 10:03:08 03/06/2017 11:02:58 Flank pain 523358086 R10.9 Pulmonary hypertension 32085274 I27.2 Hypothyroidism 89919931 E03.9 Hyperlipidemia 56176624 E78.5 Obesity 436741479 E66.9 Congestive heart failure 58194696 I50.9 Type 2 meme betes mellitus 10789284 E11.9 [id number] MD [facility] (Adult Med) [address] [place] [address] [id number] 0 05/07/2017 09:17:46 05/07/2017 10:15:11 Acute bronchitis 86807480 J20.9 Type 2 meme betes mellitus 88279849 E11.42 Congestive heart failure 19303413 I50.9 Obesity 116199847 E66.9 Sleep apnea 09061781 G47 .30 Pulmonary hypertension 86383119 I27.20 Hypothyroidism 94514348 E03.9 Hyperlipidemia 04564531 E78.5 Hypertensive disorder 38 475103 I10 [id number] MD [facility] (Adult Med) [address] [place] [address] [id number] 0 05/29/2017 11:37:07 05/29/2017 12:37:36 Pre-surgery testing 951520247 Z01.89 Sleep apnea 08486255 G47 .30 Pulmonary hypertension 69904032 I27.20 Hypothyroidism 79954939 E03.9 Hyperlipidemia 39471134 E78.5 Congestive heart failure 51968318 I50.9 Type 2 meme betes mellitus 96845971 E11.42 [id number] MD [facility] (Adult Med) [address] [place] [address] [id number] 0 07/09/2017 11:59:20 07/09/2017 12:54:52 Upper respiratory infection 50708713 J06.9 Type 2 meme betes mellitus 82159489 E11.42 [id number] MD [facility] (Adult Med) [address] [place] [address] [id number] 0 08/14/2017 09:42:41 08/14/2017 10:32:48 Gastroesophageal reflux disease 969631691 K21.9 Sleep apnea 17214845 G47 .30 [id number] MD [facility] (Adult Med) [address] [place] [address] [id number] 0 09/17/2017 11:02:56 09/17/2017 14:34:21 Serum vitamin B12 below reference range 957323417 R79.89 Acute sinusitis 89042730 J01.90 Type 2 meme betes mellitus 39675834 E11.42 Acute bronchitis 2941057 2 J20.9 Sleep apnea 98538308 G47 .30 Pulmonary hypertension 10436071 I27.20 Hypothyroidism 76551638 E03.9 Hyperlipidemia 35210565 E78.5 Obesity 610383829 E66.9 [id number] Mariana Isidro MD [facility] (Adult Med) [address] [place] [address] 72423-215 0 12/03/2017 10:47:40 12/04/2017 23:44:27 Acute urinary tract infection 150771572 N39.0 Chronic renal failure 90 705545 N18.9 Congestive heart failure 99912133 I50.9 Type 2 meme betes mellitus 26683607 E11.42 Obesity 354626265 E66.9 Hypertensive disorder 38 182977 I10 Hyperlipidemia 76379626 E78.5 Hypothyroidism 06503838 E03.9 Pulmonary hypertension 50071498 I27.20 Anemia 566201567 D64.9 [id number] Mariana Isidro MD [facility] (Adult Med) [address] [place] [address] [id number] 0 12/03/2017 11:00:35 12/03/2017 12:02:12 Anemia 811950995 D64.9 Type 2 meme betes mellitus 40158540 E11.42 Acute urin katelynn tract infection 856134985 N39.0 [id number] Mariana Isidro MD [facility] (Adult Med) [address] [place] [address] [id number] 0 04/08/2018 10:46:30 04/08/2018 12:59:56 Tuberculosis screening 765519855 Z11.1 Hepatitis B screening required 698476941 Z78.9 Pain of ri ght shoulder joint 8505020925 9650752 M25.511 Anemia 532797360 D64.9 Type 2 meme betes mellitus 27944954 E11.42 Serum ben min B12 below reference range 673193679 R79.89 Gastroesop hageal reflux disease 016749892 K21.9 Kidney stone 91694343 N2 0.0 Sleep apnea 63743504 G47 .30 Pulmonary hypertension 67517600 I27.20 Hypothyroidism 49872375 E03.9 Hyperlipidemia 27968200 E78.5 Obesity 786510271 E66.9 Congestive heart failure 28288561 I50.9 Hypertensive disorder 38 657370 I10 [id number] Mariana Isidro MD [facility] (Adult Med) [address] [place] [address] [id number] 10/09/2018 10:28:45 10/09/2018 11:15:53 Gastroesophageal reflux disease 728880832 K21.9 Sleep apnea 84810535 G47 .30 Anemia 817714073 D64.9 Pulmonary hypertension 33735845 I27.20 Congestive heart failure 26925557 I50.9 Type 2 meme betes mellitus 53145618 E11.42 Chronic renal failure 90 206326 N18.6 Serum ben min B12 below reference range 553836627 R79.89 Bilateral arthritis of knees 2203556558 513729 M13.861 Hypothyroidism 69822200 E03.9 Hyperlipidemia 81166437 E78.5 Constipation 91485424 K5 9.00 Hypertensive disorder 38 385876 I10 Obesity 421105827 E66.9 [id number] [facility] (Adult Med) [address] [place] [address] [id number] 0 01/27/2019 10:44:56 01/28/2019 09:13:39 Screening for malignant neoplasm of breast 955382141 Z12.31 Chronic renal failure 90 122200 N18.6 Gastroesop hageal reflux disease 389657371 K21.9 Sleep apnea 33420453 G47 .30 Pulmonary hypertension 69176321 I27.20 Hypothyroidism 83349182 E03.9 Hyperlipidemia 44949468 E78.5 Type 2 meme betes mellitus 53167611 E11.42 Congestive heart failure 49360592 I50.9 Hypertensive disorder 38 677816 I10 Obesity 556768578 E66.9 [id number] Mariana Isidro MD [facility] (Adult Med) [address] [place] [address] [id number] 0 04/09/2019 11:26:39 04/09/2019 12:53:47 Chronic kidney disease 272510962 N18.9 Dialysis- M,W,F Tuberculos is screening 819896887 Z11.1 Screening for malignant neoplasm of breast 923395259 Z12.31 Administra tion of influenza vaccine 10611934 Z23 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 Sutures intact. Congestive heart failure 23616834 I50.9 Serum ben min B12 below reference range 506412493 R79.89 Gastroesop hageal reflux disease 847803129 K21.9 Sleep apnea 77797718 G47 .30 Pulmonary hypertension 18380922 I27.20 Bilateral arthritis of knees 8237621330 874246 M13.861 Hypothyroidism 95503112 E03.9 Hypertensive disorder 38 471226 I10 Type 2 meme betes mellitus 99223989 E11.42 [id number] Mariana Isidro MD [facility] (Adult Med) [address] [place] [address] [id number] 0 04/30/2019 11:08:38 04/30/2019 12:00:44 Congestive heart failure 31856744 I50.9 Gastroesop hageal reflux disease 538217231 K21.9 Anemia 415083548 D64.9 Bilateral arthritis of knees 9985751993 566397 M13.861 Chronic renal failure 90 685114 N18.6 Hyperlipidemia 67439148 E78.5 Hypothyroidism 25869075 E03.9 Obesity 426206468 E66.9 Pulmonary hypertension 10112144 I27.20 Serum ben min B12 below reference range 357710387 R79.89 Sleep apnea 75771052 G47 .30 Type 2 meme betes mellitus 99707721 E11.42 [id number] [facility] [address] [place] [address] [id number] 0 06/22/2019 13:51:13 06/23/2019 12:44:00 Type 2 diabetes mellitus 66562641 E11.21 Advised to stop aspirin, for at least 5 days prior to eye operation. , DR. Bart. Jhon Brooks office informed. No medical contraindi cation for operation. # . End stage renal failure on dialysis 953596912 Z99.2 On chronic renal dialysis. Bilateral cataracts 9572 2003 H26.9 Ok for eye operation, but has to stop aspirin 5 days prior to surgery. [id number] Mariana Isidro MD [facility] (Adult Med) [address] [place] [address] [id number] 0 02/11/2020 08:44:37 02/11/2020 13:28:18 Type 2 diabetes mellitus 15651969 E11.42 Pulmonary hypertension 47395761 I27.20 Anxiety 65834229 F41.9 Bilateral arthritis of knees 0591009345 972978 M13.861 Chronic ki dney disease 500340644 N18.9 Dialysis- M,W,F Congestive heart failure 94656107 I50.9 Edema of l ower extremity 793433273 R60.0 Essential hypertension 58484315 I10 Gastroesop hageal reflux disease 426859754 K21.9 Hyperlipidemia 64669057 E78.5 Hypothyroidism 04860639 E03.9 Obesity 996123329 E66.9 Pain in bi lateral legs 8007098118 6520200 M79.605 Serum ben min B12 below reference range 708073700 R79.89 Sleep apnea 59760585 G47 .30 [id number] Mariana Isidro MD [facility] (Adult Med) [address] [place] [address] 97036-277 0 04/14/2020 08:09:07 04/14/2020 10:42:17 Administration of influenza vaccine 27978416 Z23 Type 2 meme betes mellitus 04069274 E11.42 Screening for malignant neoplasm of breast 852472997 Z12.31 Gastroesop hageal reflux disease 235653223 K21.9 Anxiety 57915753 F41.9 Essential hypertension 93669086 I10 Hyperlipidemia 38273192 E78.5 Hypothyroidism 27747420 E03.9 Pulmonary hypertension 04020826 I27.20 Sleep apnea 37385274 G47 .30 [id number] Mariana Isidro MD [facility] (Adult Med) [address] [place] [address] [id number] 0 06/14/2020 09:31:52 06/14/2020 12:07:27 Essential hypertension 89891219 I10 Gastroesop hageal reflux disease 540665661 K21.9 Hyperlipidemia 76408279 E78.5 Hypothyroidism 57137788 E03.9 Pulmonary hypertension 44741007 I27.20 Serum ben min B12 below reference range 935777631 R79.89 Sleep apnea 22664280 G47 .30 Type 2 meme betes mellitus 83511964 E11.42 Anemia 199427293 D64.9 Anxiety 69977270 F41.9 Chronic ki dney disease 074993312 N18.9 Dialysis- M,W,F Congestive heart failure 53543741 I50.9 Constipation 36037090 K5 9.00 Hallux valgus 069742042 M20.10 Hypertensive disorder 38 345227 I10 [id number] MD [facility] (Adult Med) [address] [place] [address] [id number] 0 06/28/2020 16:03:02 06/29/2020 11:29:24 Screening mammography 82939217 Z12.31 Tuberculos is screening 102998095 Z11.1 Pulmonary hypertension 57507573 I27.20 [id number] MD [facility] (Adult Med) [address] [place] [address] [id number] 0 07/14/2020 08:57:30 07/21/2020 03:47:41 [id number] MD [facility] (Adult Med) [address] [place] [address] [id number] 0 08/09/2020 08:15:04 08/09/2020 10:30:02 Anxiety 59118548 F41.9 Bilateral arthritis of knees [id number] 618496 M13.861 Chronic renal failure 90 804651 N18.6 Congestive heart failure 08397632 I50.9 Essential hypertension 86618444 I10 Gastroesop hageal reflux disease 468634978 K21.9 Hyperlipidemia 45984112 E78.5 Hypothyroidism 52030951 E03.9 Obesity 663105135 E66.9 Pulmonary hypertension 47394875 I27.20 Serum ben min B12 below reference range 969285477 R79.89 Sleep apnea 80190139 G47 .30 Type 2 meme betes mellitus 07933494 E11.42 Anemia 974997814 D64.9 Vitamin D below reference range 682505065 E55.9 [id number] MD Cisco Sampson (Adult Med) [address] [place] [address] [phone] 0 09/20/2020 08:40:59 09/22/2020 11:17:11 Anemia 036282397 D64.9 Congestive heart failure 27831426 I50.9 Vitamin D below reference range 599454040 E55.9 Essential hypertension 65288339 I10 Gastroesop hageal reflux disease 516931239 K21.9 Hyperlipidemia 50966369 E78.5 Hypertensive disorder 38 021259 I10 Hypothyroidism 20868862 E03.9 Pulmonary hypertension 95140028 I27.20 Serum ben min B12 below reference range 487779809 R79.89 Sleep apnea 32109806 G47 .30 Type 2 meme betes mellitus 11573315 E11.42 Anxiety 45504575 F41.9 Bilateral arthritis of knees 4578068275 718982 M13.861 Chronic renal failure 90 175230 N18.6 Restless legs 05922560 G 25.81 [id number] MD Cisco Washburn (Adult Med) [address] [place] [address] [phone] 05/25/2021 09:42:59 05/25/2021 13:14:36 Administration of influenza vaccine 10166722 Z23 [id number] MD Cisco Sampson (Adult Med) [address] [place] [address] [phone] 0 07/20/2021 11:59:05 07/21/2021 12:31:34 Congestive heart failure 14210161 I50.9 Vitamin D below reference range 988333747 E55.9 Essential hypertension 22419698 I10 Gastroesop hageal reflux disease 715637617 K21.9 Hallux valgus 259253449 M20.10 Hyperlipidemia 99845311 E78.5 Hypothyroidism 35034215 E03.9 Pulmonary hypertension 17194911 I27.20 Restless legs 00115611 G 25.81 Serum ben min B12 below reference range 961660559 R79.89 Sleep apnea 29757293 G47 .30 Type 2 meme betes mellitus 20321014 E11.42 E11.621 Candidiasis 26120404 B37 .9 Irritable bowel syndrome 33997265 K58.9 Anemia 145290964 D64.9 Anxiety 11198186 F41.9 Bilateral arthritis of knees 0273532693 838487 M13.861 Chronic ki dney disease 628494997 N18.9 Dialysis- M,W,F [id number] MD Cisco Terrell (Adult Med) [address] [place] [address] [phone] 0 05/15/2022 10:25:04 05/16/2022 10:26:24 Screening for malignant neoplasm of breast 065958489 Z12.39 Administra tion of diphtheria, pertussis, and tetanus vaccine 023081056 Z23 General ex amination of patient 307945447 Z00.01 Ulcer of toe 132464970 L 97.509 Type 2 meme betes mellitus 20807432 E11.42 E11.621 Screening for malignant neoplasm of colon 297991881 Z12.11 Colonoscopy declined 325 6182751 42558 Z53.20 Body mass index 30+ - obesity 420759824 Z68.35 SARS-CoV-2 mRNA vaccine declined 7979797565 Z28.21 Legal blindness 52605539 H54.8 Cough 27944283 R05.9 Onychomyco sis of toenails 779573234 B35.1 Tobacco de pendence in remission 234563328 F17.201 Requires a tetanus booster 710453716 Z28.39 Referral t o front man declined by subject 243488610 Z53.20 [id number] MD Cisco Terrell (Adult Med) [address] [place] [address] [phone] 0 10/08/2022 15:47:47 10/11/2022 10:58:01 Medication monitoring 867388541 Z51.81 Follow-up visit 03766263 9 Z09 History of SARS-CoV-2 29 65917719 86801402 Z86.16 06/2022 Physical deconditioning 2099974916 9102 R68.89 SARS-CoV-2 vaccination declined 6527181367 Z28.21 Colon canc er screening declined 2770417309 9109 Z53.20 Administra tion of pneumococcal vaccine 70653998 Z23 Type 2 meme betes mellitus 82232816 E11.42 E11.621 On TrulicityR estart Lipitor Legal blindness 62616988 H54.8 Medication review done by doctor 446787919 Z76.89 [id number] MD Cisco Terrell (Adult Med) [address] [place] [address] [phone] 0 08/01/2023 11:12:55 08/05/2023 16:20:26 Type 2 diabetes mellitus 34003798 E11.42 E11.621 Labs OV 10/08/2022On TrulicityR estart Lipitor Medication monitoring 39 9839589 Z51.81 Colon canc er screening declined 2581655639 9109 Z53.20 Medication review done by doctor 746622323 Z76.89 Screening mammography 24 030487 Z12.31 Colonoscopy declined 598 9366761 42193 Z53.20 Neuropathy 966261275 G62 .9 Chronic neck pain 235894 4955 107 M54.2 Pain of ri ght shoulder joint 7083270416 6711462 M25.511 Difficulty walking 14954 2003 R26.2 Administra tion of diphtheria, pertussis, and tetanus vaccine 314857963 Z23 Tinea pedis 1384528 B35. 3 [id number] Meggan Littlejohn MD [facility] (Adult Med) [address] [place] [address] [phone] 0 11/25/2023 15:15:42 11/28/2023 15:15:54 Body mass index 30+ - obesity 972242515 Z68.31 Obesity 155662453 E66.8 Type 2 meme betes mellitus 58911421 E11.42 E11.621 Stable, HBA1C 6.8% on 08/01/2023 OV 08/01/2023L abs OV 10/08/2022On TrulicityR estart Lipitor Chronic neck pain 502643 6603 107 M54.2 Difficulty walking 64084 2002 R26.2 She needs a K5 PMD to meet her ADLs Ulnar neur opathy of left arm 6678862726 63258 G56.22 Her options including a referral to the orthopedic surgeon were discussed, she would like to try a splint. Pain of le ft knee joint 8548155769 88977 M25.562 The xray done on 09/06/2023 which preceded her most recent fall was suggestive of OA of the left knee. Degenerati on of cervical intervertebral disc 93390115 M50.30 History of thyroid disorder 272340764 Z86.39 Previously on Thyroid replacemen tTSH 5.05 on 4R echeck labs and consider if there is a need to restart Thyroid replacemen t Recurrent falls 57687833 2 R29.6 Chronic ce rebral ischemia 754948052 I67.82 Discussed in detail, noted on the 09/06/2023 CT scan of the brain and the 09/11/2023 MRI of the brain.Gardner tid US < 50 % 09/11/2023TT E 09/11/2023Id eally she should be on Atorvastat in, this was filled on 11/19/2023 as per her EHR, salvador carreon, she cannot confirm this. Heartburn 15806808 R12 Osteoarthr itis of joint of right shoulder region 5756523860 48880 M19.011 Osteoarthr itis of left hip joint 0671495598 42485 M16.12 [id number] Meggan Littlejohn MD [facility] ([facility]) [address] [place] [address] [phone] 0 01/02/2024 10:32:47 01/07/2024 11:21:39 Chronic cerebral ischemia 766169738 I67.82 Discussed again in great detail as [...] EHR, salvador carreon, she cannot confirm this. Type 2 meme betes mellitus 52773892 E11.42 E11.621 Stable, HBA1C 6.8% on 08/01/2023 OV 08/01/2023L abs OV 10/08/2022On TrulicityR estart Lipitor Heartburn 75301261 R12 Lifestyle changes were discussedG I Osteoarthr itis of knee 295560611 M17.9 Diabetes mellitus 058118 09 E11.9 [id number] Mamadou Haq MD [facility] [address] [place] [address] 10/27/2024 09:35:38 10/28/2024 11:36:57 Essential hypertension 11995615 I10 well controlled Mixed hyperlipidemia 267 021163 E78.2 Gastroesop hageal reflux disease without esophagitis 621791674 K21.9 Type 2 meme betes mellitus 81001784 E11.9 Nausea 292469919 R11.0 Overweight in adulthood with body mass index of 25 or more but less than 30 868628386 Z68.28 [id number] Mamadou Haq MD [facility] [address] [facility] [place] [address] 12/17/2024 11:39:39 12/18/2024 09:25:29 Hypertensive disorder 54837705 I10 well controlled Chronic renal failure 90 306480 N18.5 Screening for malignant neoplasm of colon 148100594 Z12.11 Acute urin katelynn tract infection 890642013 N39.0 Muscle wea kness of limb 815774095 R29.898 Essential hypertension 89834335 I10 well controlled Overweight in adulthood with body mass index of 25 or more but less than 30 258094343 E66.3 Z68.28 [id number] Mamadou Haq MD [facility] [address] [facility] [place] [address] 12/31/2024 16:25:59 12/31/2024 16:52:33 Chronic renal failure 25598807 N18.5 History of cerebrovascular accident 320211655 Z86.73 Low blood pressure 32438 003 I95.9 given a bp monitor..a lso will call cardiologi and discuss Overweight in adulthood with body mass index of 25 or more but less than 30 261376467 E66.3 Z68.28 Well contr olled type 2 diabetes mellitus 632646002 E11.9 Health Concerns Section Related Observation LastModified by Organization Detai ls LastModified Time None Recorded Concern Status LastModified by Organization Details LastModified Time None Recorded Advance Directives Directive Y: Payers Insurance Date Sequence Insurance Name Policy Number Policy Olivares Covered Member ID Olivares Member ID Guarantor Name 12/17/2024 2 [facility] PRIOR TO 12/08/2020 (MEDICAID REPLACEMENT - HMO) Zuleyka Tinoco [id number] Zuleyka Tinoco 12/17/2024 2 [facility] PRIOR TO 12/08/2020 (MEDICAID REPLACEMENT - HMO) Zuleyka Tinoco [id number] Zuleyka Tinoco 12/17/2024 2 [facility] ON OR AFTER 12/08/20 (MEDICAID REPLACEMENT - HMO) Zuleyka Tinoco [id number] Zuleyka Tinoco 12/17/2024 2 [place] WHEN [place] MEDICARE REPLACEMENT PRIMARY) Zuleyka Tinoco [id number] Zuleyka Tinoco 12/17/2024 1 [place] Zuleyka Tinoco [id number] Zuleyka Tinoco 12/31/2024 1 [facility] ([facility]ARE [facility]PLAC[facility]/A DVANTAGE - HMO) [id number] Zuleyka Tinoco [id number] Zuleyka Tinoco 12/17/2024 2 [place]IC[place] REPLACEMENT PRIMARY) Zuleyka Tinoco [id number] Zuleyka Tinoco Notes Date Note Type Note Provider Name and Address Organization Details Recorded Time 11/25/19 24 text/htm l KneeReported by PatientHPIFor associated symptoms, patient reportsinstabilitybut reportsno weakness,no numbness,no tingling,no swelling,no redness,no warmth,no ecchymosis,no catching/locking,no popping/clicking,no buckling,no grinding,no radiation down leg,no drainage,no fever,no chills,no weight loss, andno change in bowel/bladder habits. For location, patient reportsleft. For quality, patient reportsaching. For severity, patient reportsmoderate. For duration, patient reports___ months. For timing, patient reportsacute. For context, patient reportscannot identify. For aggravating factors, patient reportswalking. For previous surgery, patient reportsnone. For prior imaging, patient reportsnone. For previous injections, patient reportsnone. For previous pt, patient reportsnone. For work related, patient reportsno. For working, patient reportsno. Diabetes F/UReported by PatientHPIFor associated symptoms, patient reportsweight gain (9 lbs)but reportsno weight loss,no dizziness,no sweats,no headaches,no confusion,no increased thirst,no increased appetite,no increased urination,no blurred vision,no numbness of feet, andno calluses on feet. For labs, patient reportslast a1c result: 6.8 (08/01/2023). For context, patient reportstaking aspirin daily,not missing doses of medications, andno side effects from medications. Medicare Annual Wellness VisitReported by PatientSocial/Behavioral HistoryFor fracture risk, patient reportsprevious musculoskeletal injuriesbut reportsno history of fractures,no recent explained fracture, andno sudden unexplained fractures. For physical activity, patient reportsdoes not exercise on a regular basis,decreased physical activity, andpoor physical condition. For diet and nutrition, patient reportshealthy dietanddiscussed vitamin and supplement use.Mental Status:For depression risk, patient reportsnever feels sad, empty, or tearful,no loss of interest in activities,no significant changes in weight,no sleep disturbances or insomnia,no agitation,no loss of energy,no feelings of worthlessness or guilt,no thoughts of suicide,no history of depression, andno history of mood disorders. For orientation, patient reportsno disorientation to time,no disorientation to date, andno disorientation to place. For concentration and memory, patient reportsno decreased concentrating ability,no memory lapses or loss, anddoes not forget words. For speech/motor difficulties, patient reportsno speech difficulties,no difficulty expressing formulated concepts,no difficulty with fine manipulative tasks,no difficulty writing/copying,no slowed reaction time, anddoes not knock things over when trying to pick them up.Functional AbilityFor vision, patient reportstotal vision loss. For activities of daily living, patient reportsunable to bathe without assistance,unable to dress without assistance,unable to feed self without assistance,unable to get out of chair or bed without assistance,unable to groom without assistance, andunable to toilet without assistance. For instrumental activities of daily living, patient reportsunable to do house work without assistance,unable to grocery shop without assistance,unable to manage medications without assistance,unable to manage money without assistance,unable to to prepare meals without assistance, andunable to use the phone without assistance. For home safety, patient reportsunsafe stairsandvision or hearing loss while drivingbut reportsno unsafe bear hazzards,no unsafe gas appliances,working smoke/co detectors,wears protective head gear for biking/high velocity,use of seatbelts,no fire arms,has hand bars in the bathroom/shower, andgood lighting in the home. For hearing, patient reportsno loss of hearing. For falls risk assessment, patient reportsno frequent falls while walking,no dizziness/vertigo,fall(s) in the past year 3, andfall(s) since last visit 2.ROS as noted in the HPI Here with a lady I take so much, I don't know what they are calledI am doing fine so Bridgette had a fall when I was in my apartment, [facility] doesn't want to take the wheelchair and the wheelchair she has, is falling apartI can't walk in there because, if I take a few steps, my leg feels like it is going to give outTrying to walk a few steps, being blind, trying to walk, I get out of breathI also get heartburn real bad Ms Tinoco [...] 10-12 hours in the chair, this is time cycle operator and as they are not adjustable, it [...] to her seat to shoulder measurement of 26, as well as a non standard seat with a depth of 19, due to her upper leg length of 21 and a seat width of 22for her 20 hip width.There are no K1-K4 chairs that will meet her needs and she will benefit from a [facility] to allow her to carry out her [...] most recent fall. Meggan Littlejohn MD Attn: Accounting,[address] [place], [address], [facility] 11/26/2023 13:51:16 01/02/20 24 text/htm l Reflux/GERDReported by PatientHPIFor quality, patient reportsburning. For associated symptoms, patient reportsnauseaandvomitingbut reportsno frequent coughing,no feeling of fullness/mass in throat,no hoarseness,no food getting stuck,no belching/burping,no regurgitation,no shortness of breath,no chest pain,no heartburn,no difficulty swallowing,no pain when swallowing,no bad taste,no decreased appetite,no weight loss,no black/tarry stools,no fatigue, andno throat pain. For symptoms, patient reportsasymptomatic,no difficulty swallowing,no pain swallowing,no postprandial pain, andheartburn. For severity, patient reportsimproving. For duration, patient reportspresent for 1-6 months. For onset/timing, patient reportsabrupt onset. For context, patient reportsnon-smoker,no drug/alcohol abuse,no drug alcohol withdrawal, andnot related to food/drink. For alleviating factors, patient reportslying down.ROS as noted in the HPI I still get heartburn real badRight here, it is been like twitching a little bit Ms Tinoco continues to have heartburn and severe reflux symptoms, it is relieved by avoiding certain foods and Tums, although, she is not really supposed to take that as she is on HD. She also has some twitching around her sternum with intermittent radiation to her LUE. She has an appointment with her photo stylist soon. Meggan Littlejohn MD Attn: Accounting,[address] [facility], [place], [address], [facility] 01/02/2024 11:55:47 10/28/19 25 text/htm l ROS as noted in the HPI blind..on dialysis..diabetes and hypertension...dr. jimenes is her renal..no hx of CO...Herminio is her photo stylist...gets regular labs through dialysis Alvina Velasquez PA-C Attn: Accounting,[address] [facility], [place], [address], [facility] 10/27/2024 10:30:52 12/18/19 25 text/htm l ROS as noted in the HPI has been constipated..stool softener and fiber...had movement..now feels gassy and full again..also urine is very strong and dark..only allowed 32 ounces of water due to kidneys..cannot provide a urine sample..also needs colonoscopy for admittance to transplant procedure...also describes concern for leg weakness would like phys therapy Alvina Velasquez PA-C Attn: Accounting,[address] [facility], [place], [address], [facility] 12/17/2024 12:12:13 01/01/20 25 text/htm l ROS as noted in the HPI pt on carvedilol and nifedipine.. per photo stylist...got hypotensive at phys therapy... hx of cva...went home and ate relaxed..and came up a little later...still somewhat low...takes dialysis currently and is limited on fluid intake.. Alvina Velasquez PA-C Attn: Accounting,[address] [facility], [place], [address], [facility] 12/31/2024 16:52:30 OBGyn Episode No OBEpisode recorded.
--- OUTSIDE RECORDS SUMMARY | 2024-12-31 18:43 | XMS_ITS | Clinical Summary ---
Author Organization [facility] Address [facility] [place] [address] Care Team Providers Care Egg Tester Name Role Phone Meggan Littlejohn MD Primary [...] How often do you attend chur or mandaeism services? Never 06/26/2022 Do you belong to any clubs o r organizations such as restorationism groups, unions, fraternal or athletic groups, or [...] on file Legal Sex Female 5:36 PM RELIEF DOCKING MASTER Gender Identity Not on file Sexual Orientation Not on file Obstetrics History Last Filed Vital Signs Vital Sign Reading Time Taken Comments Blood Pressure 155/53 06/27/2022 1:12 PM RELIEF DOCKING MASTER Pulse 86 06/27/2022 1:12 PM RELIEF DOCKING MASTER Temperature 36.8 C (98.2 F) 06/27/2022 1:12 PM RELIEF DOCKING MASTER Respiratory Rate 16 06/27/2022 1:12 PM RELIEF DOCKING MASTER Oxygen Saturation 95% 06/27/2022 1:12 PM RELIEF DOCKING MASTER Inhaled Oxygen Concentration - - Weight 103.3 kg (227 lb 12.8 oz) 06/27/2022 4:33 AM RELIEF DOCKING MASTER Height 162.6 cm (5' 4) 06/25/2022 12:1 5 AM RELIEF DOCKING MASTER Body Mass Index 39.1 06/25/2022 12:15 AM RELIEF DOCKING MASTER Plan of Treatment Health Maintenance Due Date [...] 06/27/2023 06/27/2022, 06/10, 06/25/2022, Additional history exists Breast Cancer Screening-Mammogram 09/03/2024 09/04/2023, 09/03/2023, 01/30/2017, Additional history exists Influenza Vaccine (#1) 2025 , 04/11/2022, 03/12/2022, Additional history exists DTaP/Tdap/Td Vaccine (2 - Td or Tdap) 08/01/2033 08/01/2023 Hepatitis C Screening Completed 06/25/2022 Procedures Procedure Name Priority Date/Time Associated Diagnosis Comments EGFR Routine 06/27/2022 6:53 AM RELIEF DOCKING MASTER HEPATITIS PANEL, ACUTE STAT 06/25/2022 9:29 AM RELIEF DOCKING MASTER from Last 3 Months or Most Recently Relevant to Health Maintenance Results * eGFR (06/27/2022 6:53 AM RELIEF DOCKING MASTER) eGFR 6 mL/min/1. 73 m2 IRIS DE [...] last reviewed 2021. Blood 06/27/2022 6:53 AM RELIEF DOCKING MASTER 06/27/2022 7:23 AM RELIEF DOCKING MASTER us Juaquin Alonzo MD LAB BLOOD ORDERABLES Final Resul t IRIS [place] ANDA ([place]) [address] [facility] Department [place] [address] * Hepatitis panel, acute (06/25/2022 9:29 AM RELIEF DOCKING MASTER) Hep A IgM Nonreactive Nonreactive IRIS [place] ANDA ([place]) Comment: Interpretive Data: If Hep A IgM Ab is reported as Equivocal, a new sample should be drawn in two weeks for testing. Current interpretive data was last revised on 19. Testing performed by: [facility], [address] [place] [address]., [id number] Hep B core IgM Nonreactive Nonreactive Leonid DE ANDA ([place]) Comment: Interpretive Data If HepB Core IgM Ab is reported as Equivocal, a new sample should be drawn in two weeks for testing. Current interpretive data was last revised on 19. Testing performed by: [facility], [address] [place] [address]., [id number] Hep C Ab Nonreactive Nonreactive IRIS DE [...] last revised on 2019. Testing performed by: [facility], [address] [place] [address]., [id number] HepBsAg Nonreactive Nonreactive IRIS DE ANDA ([place]) Comment:Testing performed by : [facility], [address] [place] [address]., [id number] Blood 06/25/2022 9:2 9 AM RELIEF DOCKING MASTER 06/25/2022 2:48 PM RELIEF DOCKING MASTER Dimitris Owens MD LAB MICROBIOLOGY - GENERAL OR DERABLES Final Result IRIS DE ANDA ([place]) [facility] Department of Laboratories [place], [place] [address] from Last 3 Months or Most Recently Relevant to Health Maintenance Insurance ID[facility] MEDICARE ADVANTAGE [facility] Address: [address] [address] [place] [address] IDPA Advance Directives For more information, please contact: [phone] * Full Code (Latest Code Status on File) Date Activated Date Inactivated Comments 06/24/2022 11:13 PM 06/28/2022 12:08 AM Care Teams Egg Tester Relationship Specialty Start Date End Date Meggan Littlejohn MD [address] [place] [id number] PCP - General 01/01/17
--- NOTE | 2024-12-31 18:45 | ED.WEAKNESS ---
HPI - Weakness General Chief complaint: Dizziness Stated complaint: weakness Time Seen by Provider: 12/31/24 18:45 Source: patient Mode of arrival: ambulatory Limitations: no limitations History of Present Illness HPI Narrative: Patient is a 69-year-old female with hypotension and dizziness while standing that gets better with sitting or laying down. She is a hemodialysis patient. Saturday dialysis. She has diabetes 2. No chest pain or shortness of breath. She has hypertension as well. MD Complaint: generalized weakness ( Specifically with standing) Onset (ago): week(s) ( 1) Duration: intermittent Location: generalized Migration: none Severity: moderate Severity scale (1-10): 2 Quality: other ( no pain) Relieving factors: rest and other ( supine) Exacerbating factors: exertion ( standing) Context: other ( patient is on blood pressure medicine and a dialysis patient having some hypotension/dizziness/ weakness with standing and better with sitting or supine) Associated symptoms: denies other symptoms Related Data Home Medications ?Medication ?Instructions ?Recorded ?Confirmed ?Last Taken ?Type carvedilol 12.5 mg tablet 12.5 mg PO BID 09/07/23 02/04/24 09/05/23 History dulaglutide 1.5 mg/0.5 mL 1.5 mg subcut WEEKLY 09/07/23 02/04/24 08/30/23 History subcutaneous pen injector (Trulicity) nifedipine 90 mg tablet,extended 90 mg PO DAILY 09/07/23 02/04/24 09/05/23 History release sevelamer carbonate 800 mg tablet 800 mg PO TID 09/07/23 02/04/24 09/05/23 History atorvastatin 40 mg tablet 40 mg PO DAILY 02/04/24 02/04/24 Unknown History Allergies Allergy/AdvReac Type Severity Reaction Status Date / Time captopril (From Capozide) Allergy Rash Verified 02/19/24 14:05 hydrochlorothiazide (From Allergy Rash Verified 02/19/24 14:05 Capozide) Review of Systems Review of Systems: All systems reviewed & are unremarkable except as noted in HPI and below Constitutional: Constitutional: Reports no additional constitutional complaints Eyes: Eyes: Reports no additional eye complaints ENT: Reports system reviewed and no additional complaints, except as documented Cardiovascular: Cardiovascular: Reports no additional cardiovascular complaints Respiratory: Respiratory: Reports no additional respiratory complaints Gastrointestinal: Gastrointestinal: Reports no additional gastrointestinal complaints Genitourinary: Genitourinary: Reports no additional female genitourinary complaints Musculoskeletal: Musculoskeletal: Reports no additional musculoskeletal complaints Integumentary/Breasts: Skin/Breast: Reports system reviewed and no additional complaints, except as docu Neurologic: Reports system reviewed and no additional complaints, except as documented Psychiatric: Psychiatric: Reports no additional psychiatric complaints Endocrine: Endocrine: Reports no additional endocrine complaints Hematologic/Lymphatic: Hematologic/Lymphatic: Reports no additional hematologic/lymphatic complaints Allergic/Immunologic: Allergic/Immunologic: Reports no additional allergic/immunologic complaints PMFSH Past Medical History Medical History Constipation GERD (gastroesophageal reflux disease) AV fistula Legal blindness Cataracts, bilateral Depression Type 2 diabetes mellitus High cholesterol Hypertension End-stage renal disease on hemodialysis Surgical History Surgical History H/O cataract removal with insertion of prosthetic lens Family History Family History Mother Breast cancer Father Heart disease Diabetes mellitus Hypertension Sibling Lung cancer Diabetes mellitus Social History Social History Smoking status: Current every day smoker Alcohol intake: never Substance use: never Do You Feel Safe in your Home?: Yes Lack of Transportation: No Lack of Food: Never True Current Housing: I Have Housing Concerned About Future Housing: No Difficulty Paying Gas/Electric Bills: No Difficulty Paying for Meds: No Currently Unemployed: No Education: Don't Know Difficulty w/ Childcare or Family Care: No Spiritual care concerns: No Exam Const: General: healthy appearing Nutritional Appearance: well nourished Orientation/consciousness: patient oriented x3 HENMT: Head: normal to inspection Ears: external ears normal Face/Nose/Sinus: Normal external nose present Eyes: Conjunctivae: conjunctivae normal Pupils: Equal, round and reactive pupils present EOM: EOMs intact bilaterally Neck: Neck: normal visual inspection Chest: Chest palpation & inspection: normal inspection of the chest Resp: Effort & Inspection: normal respiratory effort and not labored Auscultation: clear to auscultation bilaterally and no crackles Cardio: Rate: regular rate Rhythm: regular rhythm Heart sounds: no murmurs GI: Inspection: non-distended GI Palp: Yes Soft to palpation and No Tenderness to palpation present (GI) Auscultation: normal bowel sounds : General: Yes bladder normal to palpation Back/Spine/Pelvis: Back: no CVA tenderness Skin: General skin exam: normal color Rashes: no rashes Wounds: no wounds Other: left upper extremity has an AV graft with thrill Neuro: General: patient oriented x3, moves all extremities, no meningeal signs, no focal motor deficits and CN's II-XI intact bilaterally Cranial nerves: Yes Nystagmus not present Speech: normal speech Gait exam (Neuro): Normal gait present Extrem: General: normal to inspection Psych: Mental Status: mental status grossly normal Affect: normal affect Attitude: cooperative Course Vital Signs Vital signs: Vital Signs Temperature 36.0 C L 12/31/24 18:32 Pulse Rate 87 12/31/24 18:32 Respiratory Rate 18 12/31/24 18:32 Blood Pressure 86/53 L 12/31/24 18:32 Pulse Oximetry 100 12/31/24 18:32 Oxygen Delivery Room Air 12/31/24 18:32 Temperature 36.0 C L 12/31/24 18:32 Pulse Rate 87 12/31/24 18:32 Respiratory Rate 18 12/31/24 18:32 Blood Pressure 86/53 L 12/31/24 18:32 Pulse Oximetry 100 12/31/24 18:32 Oxygen Delivery Room Air 12/31/24 18:32 MDM - Weakness MDM Narrative Medical decision making narrative: patient is a 69-year-old female with dizziness and weakness and hypotension with standing and better with supine. Orthostatic hypotension was noted with lying heart rate 79 and blood pressure 128/63; standing is heart rate of 86 and a blood pressure of 108/74 with symptoms of dizziness. We will do a cardiac workup. Lab Data Attestation: I reviewed the patient's lab results. 12/31/24 20:13 12/31/24 20:13 Labs: Lab Results 12/31/24 12/31/24 Range/Units 19:08 20:13 WBC 10.3 (4.8-10.8) K/mm3 RBC 4.09 L (4.20-5.40) M/mm3 Hgb 12.3 (11.7-13.8) g/dL Hct 39.8 (35.0-42.0) % MCV 97.3 (78.0-102.0) fL MCH 30.1 (27.0-31.0) pg MCHC 30.9 L (32-36) g/dL RDW 16.4 H (11.6-14.4) % Plt Count 224 (150-420) K/mm3 MPV 10.3 (9.2-11.8) fl Immature Gran % (Auto) 0.7 H (0.0-0.0) % Neut % (Auto) 60.1 (50.0-70.0) % Lymph % (Auto) 20.3 (18.0-42.0) % [place] % (Auto) 11.9 H (2.0-11.0) % Eos % (Auto) 5.8 (1.0-6.0) % Baso % (Auto) 1.2 H (0.0-1.0) % Lymph # (Auto) 2.09 (1.10-4.50) K/mm3 [place] # (Auto) 1.23 H (0.10-0.90) K/mm3 Eos # (Auto) 0.60 H (0.02-0.50) K/mm3 Baso # (Auto) 0.12 H (0.00-0.10) K/mm3 Abs Immat Gran (auto) 0.07 H (0.00-0.00) K/mm3 Absolute Neuts (auto) 6.19 (1.70-7.20) K/mm3 Absolute Nucleated RBC 0.00 (0.00-0.00) K/mm3 Nucleated RBC % 0.0 (0-0.0) % Sodium 137 (137-145) mmol/L Potassium 4.2 (3.4-5.0) mmol/L Chloride 101 (98-107) mmol/L Carbon Dioxide 21 L (22-30) mmol/L Anion Gap 15 H (4-12) mmol/L BUN 42 H D (7-17) mg/dL Creatinine 7.03 H (0.7-1.0) mg/dL Estim Creat Clear Calc 8 ml/min Estimated GFR 6 L (59 - ) Glucose 135 H (65-110) mg/dL POC Capillary Glucose 158 H (65-105) mg/dl Calculated Osmolality 296 H (285-295) mOsm/kg Calcium 9.7 (8.4-10.2) mg/dL Total Bilirubin 0.5 (0.2-1.3) mg/dL AST 21 (14-36) U/L ALT 14 (6-35) U/L Alkaline Phosphatase 104 (38-126) U/L Troponin I 0.016 (0.000-0.034) ng/mL Total Protein 7.4 (6.3-8.2) g/dL Albumin 3.9 (3.5-5.1) g/dL ECG Data EKG #1: Attestation: I personally reviewed and interpreted this ECG as follows: ECG completion date: 12/31/24 ECG completion time: 21:07 EKG Interpretation: normal rate, sinus rhythm, no ectopy, non-specific ST changes, normal QRS, normal QT and left axis Discharge Plan Discharge Clinical Impression: Orthostatic hypotension Patient Disposition: Home Condition: Stable Instructions: Hypotension (ED), Dizziness (ED) Additional Instructions: please stop your nifedipine 90 mg dose and start the [address] its [address] to allow your blood pressure to elevate to normal ranges. Monitor your home blood pressure and see the primary doctor in the next week. Patient Language: [place] Islander Prescriptions: New nifedipine 30 mg tablet extended release 30 mg PO DAILY Qty: 30 0RF Rx Instructions: Stop Nifedipine 90mg No Action atorvastatin 40 mg tablet 40 mg PO DAILY ondansetron 4 mg tablet,disintegrating 4 mg PO Q8H PRN (Reason: nausea and vomiting) Qty: 20 0RF carvedilol 12.5 mg tablet 12.5 mg PO BID nifedipine 90 mg tablet extended release 90 mg PO DAILY sevelamer carbonate 800 mg tablet 800 mg PO TID Trulicity 1.5 mg/0.5 mL pen injector 1.5 mg SUBCUT WEEKLY Rx Instructions: FRIDAYS aspirin [Children's Aspirin] 81 mg Tablet,Chewable 81 mg PO DAILY@0800 Qty: 30 0RF Linzess 72 mcg capsule 72 mcg PO DAILY 90 Days Qty: 90 3RF omeprazole 20 mg capsule,delayed release(DR/EC) 20 mg PO DAILY 30 Days Qty: 30 5RF Follow-up/Referrals: Ron,NIKKI Cobos [Primary Care Provider] - Time of Disposition: 21:02
[2024-12-31 18:48] VITALS: BP 128/63
[2024-12-31 18:50] VITALS: BP 106/62; PULSE 81
[2024-12-31 18:53] VITALS: BP 108/74; PULSE 86
--- OUTSIDE RECORDS SUMMARY | 2024-12-31 19:23 | XMS_ITS | Encounter Summary ---
Author Organization [facility] Address [address] [place] [address] Care Team Providers Care Director Data Processing Name Role Phone Gilles Morrison EQUIPMENT HIRE MANAGER-CMV DRIVER Primary Care Provider Griffin Velasquez Primary Care Provider [phone] Encounter Details Date Type Department Care Team (Late st Contact Info) Description 03/22/2023 Telephone Formerly [facility] . Wound Care [id number] [facility] , [address] [phone] Binh Messina, SERGIO Social History [...] on file Legal Sex Female 6:17 AM PLANT TECH Gender Identity Not on file Sexual Orientation Not on file documented as of this encounter Plan of Treatment Upcoming Encounters Date Type Department Care Team (Latest Contact Info) Description 01/05/2025 9:40 AM CDT Hospital Encounter [facility] Perioperative Surgery [address] [place] [id number] Bridger Friedman MD [address] [place] [phone] Surgery General 01/05/2025 9:40 AM CDT - 01/05/2025 11:03 AM CDT Surgery [facility]ly [facility] - Perioperative Surgery [address] [place] [phone] Bridger Friedman MD [address] [place] [phone] LEFT ARM PSEUDOANEURYSM RESECTIONA AND ACCUSEAL 01/05/2025 10:00 AM CDT Procedure visit [address] [phone] Bridger Friedman MD [address] [place] [phone] 01/21/2025 1:10 PM CDT Office Visit [address] [phone] Kim Davalos, EQUIPMENT HIRE MANAGER-CMV DRIVER [address] [place] [phone] 02/09/2025 2:15 PM CDT Hospital Encounter [facility] ENDOSCOPY [facility] [place] [phone] lAdo Knox MD [facility] [place] [phone] Surgery General 02/09/2025 2:15 PM CDT - 02/09/2025 3:00 PM CDT Surgery [facility] ENDOSCOPY [address] [place] [phone] Aldo Knox MD [address] [place] [phone] COLONOSCOPY SCREEN--extended prep---dialysis pt--stat k+ 04/01/2025 11:00 AM CDT Appointment [facility] Vascular Services [address] [facility], [address] [place] [address] [place] [address] [facility] [address] [place] [phone] Scheduled Procedures Name Priority Associated Diagnoses Date/Ti me REPAIR ANEURYSM / PSEUDOANEURYSM AXILLARY-BRACHIAL 01/05/2025 9:40 AM C DT COLONOSCOPY SCREEN Screen for colon cancer Pre-transplant evaluation for kidney transplant 02/09/2025 2:15 PM CDT documented as of this encounter Visit Diagnoses Not on filedocumented in this encounter Care Teams Director Data Processing Relationship Specialty Start Date End Date Gilles Morrison, EQUIPMENT HIRE MANAGER-CMV DRIVER [address] [place] [address] PCP - General Nurse Practitioner 07/15/18 12/19/24 Griffin Velasquez PA [address] [place] [address] PCP - General Physician Bullet Slug Casting Machine Operator 12/20/24 documented as of this encounter
--- OUTSIDE RECORDS SUMMARY | 2024-12-31 19:23 | XMS_ITS ---
Author Organization [facility] Address [facility] [place] [address] Care Team Providers Care Bung Dropper Name Role Phone Meggan Littlejohn MD Primary Care Provider Dialysis Access Sites Type Status Location Placement Date Removal Da te AV fistula Active Left Upper Arm - Anterior Procedures Procedure Name Priority Date/Time Associated Diagnosis Comments EGFR Routine 06/27/2022 6:53 AM RAILROAD SUPERVISOR OF ENGINES HEPATITIS PANEL, ACUTE STAT 06/25/2022 9:29 AM RAILROAD SUPERVISOR OF ENGINES from Last 3 Months or Most Recently [...] often do you attend chur ch or orthodoxy services? Never 06/26/2022 Do you belong to any clubs o r organizations such as buddhist groups, unions, fraternal or athletic groups, or [...] place to sleep or slept in a skilled nursing (including now)? No 06/26/2022 Personal Safety Answer Date Recorded Getting School Help Needed Denies 06/16 Comments Unknown Sex and Gender Information Value Date Recorded Sex Assigned at Not on file Legal Sex Female 5:36 PM RAILROAD SUPERVISOR OF ENGINES Gender Identity Not on file Sexual Orientation Not on file Last Filed Vital Signs Vital Sign Reading Time Taken Comments Blood Pressure 155/53 06/27/2022 1:12 PM RAILROAD SUPERVISOR OF ENGINES Pulse 86 06/27/2022 1:12 PM RAILROAD SUPERVISOR OF ENGINES Temperature 36.8 C (98.2 F) 06/27/2022 1:12 PM RAILROAD SUPERVISOR OF ENGINES Respiratory Rate 16 06/27/2022 1:12 PM RAILROAD SUPERVISOR OF ENGINES Oxygen Saturation 95% 06/27/2022 1:12 PM RAILROAD SUPERVISOR OF ENGINES Inhaled Oxygen Concentration - - Weight 103.3 kg (227 lb 12.8 oz) 06/27/2022 4:33 AM RAILROAD SUPERVISOR OF ENGINES Height 162.6 cm (5' 4) 06/25/2022 12:1 5 AM RAILROAD SUPERVISOR OF ENGINES Body Mass Index 39.1 06/25/2022 12:15 AM RAILROAD SUPERVISOR OF ENGINES Results * eGFR (06/27/2022 6:53 AM RAILROAD SUPERVISOR OF ENGINES) eGFR 6 mL/min/1. 73 m2 IRIS DE ANDA (RIGBY) Comment: Interpretive Data Reference Interval Normal >/= [...] last reviewed 2021. Blood 06/27/2022 6:53 AM RAILROAD SUPERVISOR OF ENGINES 06/27/2022 7:23 AM RAILROAD SUPERVISOR OF ENGINES us Juaquin Alonzo MD LAB BLOOD ORDERABLES Final Resul t IRIS DE ANDA ([place]) 1 [facility] Department [place] [address] * Hepatitis panel, acute (06/25/2022 9:29 AM RAILROAD SUPERVISOR OF ENGINES) Hep A IgM Nonreactive Nonreactive IRIS DE ANDA ([place]) Comment: Interpretive Data: If Hep A IgM Ab is reported as Equivocal, a new sample should be drawn in two weeks for testing. Current interpretive data was last revised on 19. Testing performed by: [facility], [address] [place] [address]., [id number] Hep B core IgM Nonreactive Nonreactive Leonid DE ANDA (NE) Comment: Interpretive Data If HepB Core IgM Ab is reported as Equivocal, a new sample should be drawn in two weeks for testing. Current interpretive data was last revised on 19. Testing performed by: [facility], [address] [place] [address]., [id number] Hep C Ab Nonreactive Nonreactive IRIS DE [...] last revised on 2019. Testing performed by: [facility], [address] [place] [address]., [id number] HepBsAg Nonreactive Nonreactive IRIS DE ANDA ([place]) Comment:Testing performed by : [address] [id number] Blood 06/25/2022 9:29 AM RAILROAD SUPERVISOR OF ENGINES 06/25/2022 2:48 PM RAILROAD SUPERVISOR OF ENGINES us Dimitris Owens MD LAB MICROBIOLOGY - GENERAL OR DERABLES Final Result IRIS DE ANDA ([place]) 1 [facility] Department of [employer] [place], [place] [id number] from Last 3 Months or Most Recently Relevant to Health Maintenance
--- OUTSIDE RECORDS SUMMARY | 2024-12-31 19:23 | XMS_ITS | Referral Summary ---
Author Organization [facility] Address [facility] [place] [address] Care Team Providers Care Conveyor Weigher Operator Name Role Phone Meggan Littlejohn MD [...] How often do you attend chur or jain services? Never 06/26/2022 Do you belong to any clubs o r organizations such as methodist groups, unions, fraternal or athletic groups, or [...] on file Legal Sex Female 5:36 PM IRON WORKER Gender Identity Not on file Sexual Orientation Not on file Last Filed Vital Signs Vital Sign Reading Time Taken Comments Blood Pressure 155/53 06/27/2022 1:12 PM IRON WORKER Pulse 86 06/27/2022 1:12 PM IRON WORKER Temperature 36.8 C (98.2 F) 06/27/2022 1:12 PM IRON WORKER Respiratory Rate 16 06/27/2022 1:12 PM IRON WORKER Oxygen Saturation 95% 06/27/2022 1:12 PM IRON WORKER Inhaled Oxygen Concentration - - Weight 103.3 kg (227 lb 12.8 oz) 06/27/2022 4:33 AM IRON WORKER Height 162.6 cm (5' 4) 06/25/2022 12:1 5 AM IRON WORKER Body Mass Index 39.1 06/25/2022 12:15 AM IRON WORKER Plan of Treatment Not on file Procedures Procedure Name Priority Date/Time Associated Diagnosis Comments EGFR Routine 06/27/2022 6:53 AM IRON WORKER HEPATITIS PANEL, ACUTE STAT 06/25/2022 9:29 AM IRON WORKER from Last 3 Months or Most Recently Relevant to Health Maintenance Results * eGFR (06/27/2022 6:53 AM IRON WORKER) eGFR 6 mL/min/1. 73 m2 IRIS DE [...] last reviewed 2021. Blood 06/27/2022 6:53 AM IRON WORKER 06/27/2022 7:23 AM IRON WORKER us Juaquin Alonzo MD LAB BLOOD ORDERABLES Final Resul t RIIS DE ANDA ([place]) 1 [facility] Department [place] [address] * Hepatitis panel, acute (06/25/2022 9:29 AM IRON WORKER) Hep A IgM Nonreactive Nonreactive IRIS DE ANDA ([place]) Comment: Interpretive Data: If Hep A IgM Ab is reported as Equivocal, a new sample should be drawn in two weeks for testing. Current interpretive data was last revised on 19. Testing performed by: [facility], [address] [place] [address]., [id number] Hep B core IgM Nonreactive Nonreactive C GABBIE DE ANDA ([place]) Comment: Interpretive Data If HepB Core IgM Ab is reported as Equivocal, a new sample should be drawn in two weeks for testing. Current interpretive data was last revised on 19. Testing performed by: [facility], [address] [place] [address]., [id number] Hep C Ab Nonreactive Nonreactive IRIS DE [...] last revised on 2019. Testing performed by: [facility], [address] [place] [address]., [id number] HepBsAg Nonreactive Nonreactive IRIS DE ANDA (NE) Comment:Testing performed by : [facility], [address] [place] [address]., [id number] Blood 06/25/2022 9:29 AM IRON WORKER 06/25/2022 2:48 PM IRON WORKER Dimitris Owens MD LAB MICROBIOLOGY - GENERAL OR DERABLES Final Result IRIS DE ANDA ([place]) 1 [facility] Department [place] [address] from Last 3 Months or Most Recently Relevant to Health Maintenance Insurance IDPA [facility] MEDICARE ADVANTAGE [facility] Address: [address] [address] [place] [address] IDPA Advance Directives For more information, please contact: [phone] * Full Code (Latest Code Status on File) Date Activated Date Inactivated Comments 06/24/2022 11:13 PM 06/28/2022 12:08 AM Care Teams Conveyor Weigher Operator Relationship Specialty Start Date End Date Meggan Littlejohn MD [address] [address] PCP - General 01/01/17
--- OUTSIDE RECORDS SUMMARY | 2024-12-31 19:23 | XMS_ITS | Clinical Summary ---
Author Organization [facility] Address [address] [place] [address] Care Team Providers Care Beer Brewer Name Role Phone Griffin Velasquez Primary Care Provider [phone] Source Comments [facility],non-owned Affiliates and Associated Physician Practices is amultiple site organization consisting of ambulatory clinics and hospital sitesin [place], [place], [place] and [place]. This disclosure is being madepursuant to the Care Everywhere program and may not contain all information available regarding this patient. Last updated 18.[facility] Allergies Active Allergy Reactions Criticality Noted Date [...] Type Department Care Team Description 12/09/2024 Telephone [facility] TRANSPLANT [address] [place] [address] Clarice Weiss, RN Kidney Transplant Evaluation 12/02/2024 Telephone [facility] TRANSPLANT [address] [place] [address] Clarice Weiss, RN Kidney Transplant Evaluation 11/23/2024 1:40 PM CDT Office Visit [facility] - Surgery [address] [facility], [address] [place] [phone] Bridger Friedman MD Pseudoaneurysm of arteriovenous dialysis fistula, initial encounter (Primary Dx) 11/23/2024 Travel 10/01/2024 10:00 AM CDT - 10/01/2024 11:59 PM CDT Hospital Encounter [facility] [address] [place] [address], [address] [place] [address] Jose Magaña MD Discharge Disposition: Home or [...] on file Legal Sex Female 6:17 AM DISPENSARY ATTENDANT Gender Identity Not on file Sexual [...] 9:40 AM CDT Hospital Encounter [facility] - Perioperative Surgery [address] [place] [address] Brid[place] [id number] [place] [address] [place] [phone] Surgery General 01/05/2025 9:40 AM CDT - 01/05/2025 11:03 AM CDT Surgery [facility] - Perioperative Surgery [address] [place] [address] Bridger Friedman MD [address] [place] [address] [place] [phone] LEFT ARM PSEUDOANEURYSM RESECTIONA AND ACCUSEAL 01/05/2025 10:00 AM CDT Procedure visit [facility] - Surgery [address] [place] [address], [address] [phone] Bridger Friedman MD [address] [place] [address] [place] [phone] 01/21/2025 1:10 PM CDT Office Visit [facility] - Surgery [address] [place] [phone] Kim Davalos, CLIENT SUPPORT REPRESENTATIVE-BRINE PROCESS OPERATOR [address] [place] [address] [place] [phone] 02/09/2025 2:15 PM CDT Hospital Encounter [facility] ENDOSCOPY [address] [place] [address] Aldo Knox MD [address] [place] [phone] Surgery General 02/09/2025 2:15 PM CDT - 02/09/2025 3:00 PM CDT Surgery [facility] ENDOSCOPY [address] [place] [address] Aldo Knox MD [address] [place] [phone] COLONOSCOPY SCREEN--extended prep---dialysis pt--stat k+ 04/01/2025 11:00 AM CDT Appointment [facility] Vascular Services [address] [facility], [address] [place] [address] [place] [address] [facility] [address] [place] [address] Scheduled Procedures Name Priority Associated [...] CDT Jose Magaña MD 10/01/2024 11:11 AM [facility] Zuleyka Tinoco 1955 DATE OF [...] was advanced under fluoroscopy and a 5 Mongolian catheter placed. Digital subtraction images were obtained [...] decision was made to perform angioplasty. Five Mongolian sheath was upsized to a 7 Mongolian sheath. Moderate IV conscious sedation was administered [...] - 107 mmol/L 04/12/2022 2:42 PM CDT [facility] CO2 28 23 - 31 mmol/L 04/12/2022 2:42 PM CDT [facility] Calcium 8.8 8.4 - 10.4 mg/dL 04/12/2022 2:42 PM CDT [facility] Anion Gap 7(L) 8 - 18 mmol/L 04/12/2022 2:42 PM CDT [facility] BUN 13 9.8 - 20.1 mg/dL 04/12/2022 2:42 PM CDT [facility] Creatinine 5.73(H) 0.57 - 1.11 mg/dL 04/12/2022 2:42 PM CDT [facility] Alkaline Phosphatase 66 40 - 150 U/L 04/12/2022 2:42 PM CDT [facility] ALT <6 0 - 61 U/L 04/12/2022 2:42 PM CDT [facility] AST 13 5 - 34 U/L 04/12/2022 2:42 PM CDT [facility] Protein Total 6.9 6.4 - 8.3 gm/dL 04/12/2022 2:42 PM CDT [facility] Albumin 3.0(L) 3.2 - 4.6 gm/dL 04/12/2022 2:42 PM CDT [facility] Bilirubin Total 0.7 0.2 - 1.2 mg/dL 04/12/2022 2:42 PM CDT [facility] eGFR by CKD-EPI 8(L) >=90 mL/min/1.7 3 m2 04/12/2022 2:42 PM CDT [facility] Blood BLOOD SPECIMEN / Unknown Venipuncture / Unknown 04/12/2022 2:09 PM CDT 04/12/2022 2:19 PM CDT us Carolina Egan PA-C LAB - CHEMISTRY ORDERABL ES Final Result [facility] [address] [place] [address] * HEPATITIS C ANTIBODY (04/12/2022 [...] DO LAB - CHEMISTRY ORDERABLES Final Result [facility] [address] [place] [address] from Last 3 Months or Most Recently Relevant to Health Maintenance Insurance [facility] MANAGED MEDICARE ADV [facility] Care Teams Beer Brewer Relationship Specialty Start Date End Date Griffin Velasquez PA [address] [place] [phone] PCP - General Physician Trick Rodeo Rider 12/20/24
--- OUTSIDE RECORDS SUMMARY | 2024-12-31 19:23 | XMS_ITS | Clinical Summary ---
Author Organization [facility] Address [facility] [place] [address] Care Team Providers Care Recycling Sorter Name Role Phone Meggan Littlejohn MD Primary [...] How often do you attend chur or confucianist services? Never 06/26/2022 Do you belong to any clubs o r organizations such as bahai groups, unions, fraternal or athletic groups, or [...] place to sleep or slept in a retirement (including now)? No 06/26/2022 Personal Safety Answer Date Recorded Getting School Help Needed Denies 06/16 Comments Unknown Sex and Gender Information Value Date Recorded Sex Assigned at Not on file Legal Sex Female 5:36 PM BRAILLE TEACHER Gender Identity Not on file Sexual Orientation Not on file Obstetrics History Last Filed Vital Signs Vital Sign Reading Time Taken Comments Blood Pressure 155/53 06/27/2022 1:12 PM BRAILLE TEACHER Pulse 86 06/27/2022 1:12 PM BRAILLE TEACHER Temperature 36.8 C (98.2 F) 06/27/2022 1:12 PM BRAILLE TEACHER Respiratory Rate 16 06/27/2022 1:12 PM BRAILLE TEACHER Oxygen Saturation 95% 06/27/2022 1:12 PM BRAILLE TEACHER Inhaled Oxygen Concentration - - Weight 103.3 kg (227 lb 12.8 oz) 06/27/2022 4:33 AM BRAILLE TEACHER Height 162.6 cm (5' 4) 06/25/2022 12:1 5 AM BRAILLE TEACHER Body Mass Index 39.1 06/25/2022 12:15 AM BRAILLE TEACHER Plan of Treatment Health Maintenance Due Date [...] Diagnosis Comments EGFR Routine 06/27/2022 6:53 AM BRAILLE TEACHER HEPATITIS PANEL, ACUTE STAT 06/25/2022 9:29 AM BRAILLE TEACHER from Last 3 Months or Most Recently Relevant to Health Maintenance Results * eGFR (06/27/2022 6:53 AM BRAILLE TEACHER) eGFR 6 mL/min/1. 73 m2 IRIS DE [...] last reviewed 2021. Blood 06/27/2022 6:53 AM BRAILLE TEACHER 06/27/2022 7:23 AM BRAILLE TEACHER us Juaquin Alonzo MD LAB BLOOD ORDERABLES Final Resul t IRIS [place] ANDA ([place]) [address] [facility] Department [place] [address] * Hepatitis panel, acute (06/25/2022 9:29 AM BRAILLE TEACHER) Hep A IgM Nonreactive Nonreactive IRIS [place] ANDA ([place]) Comment: Interpretive Data: If Hep A IgM Ab is reported as Equivocal, a new sample should be drawn in two weeks for testing. Current interpretive data was last revised on 19. Testing performed by: [facility], [address] [place] [address]., [id number] Hep B core IgM Nonreactive Nonreactive Leonid DE ANDA ([place]) Comment: Interpretive Data If HepB Core IgM Ab is reported as Equivocal, a new sample should be drawn in two weeks for testing. Current interpretive data was last revised on 19. Testing performed by: [facility], [address] [place] [address]., [id number] Hep C Ab Nonreactive Nonreactive IRIS DE [...] last revised on 2019. Testing performed by: [facility], [address] [place] [address]., [id number] HepBsAg Nonreactive Nonreactive IRIS DE ANDA ([place]) Comment:Testing performed by : [facility], [address] [place] [address]., [id number] Blood 06/25/2022 9:2 9 AM BRAILLE TEACHER 06/25/2022 2:48 PM BRAILLE TEACHER Dimitris Owens MD LAB MICROBIOLOGY - GENERAL OR DERABLES Final Result IRIS [place] ANDA ([place]) [address] [facility] Department of Laboratories [place], [place] [id number] from Last 3 Months or Most Recently Relevant to Health Maintenance Insurance [employer] [facility] MEDICARE ADVANTAGE ID[employer] Advance Directives For more information, please contact: [phone] * Full Code (Latest Code Status on File) Date Activated Date Inactivated Comments 06/24/2022 11:13 PM 06/28/2022 12:08 AM Care Teams Recycling Sorter Relationship Specialty Start Date End Date Meggan Littlejohn MD [address] [place] [id number] PCP - General 01/01/17
--- OUTSIDE RECORDS SUMMARY | 2024-12-31 19:23 | XMS_ITS | Encounter Summary ---
Author Organization [facility] Health Address [address] [place] [address] Care Team Providers Care Resistance Welding Machine Operator Name Role Phone Meggan Littlejohn MD Primary Care Provider Gilles Morrison Primary Care Provider Griffin Velasquez Primary Care Provider [phone] Encounter Details Date Type Department Care Team (Late st Contact Info) Description 03/10/2018 [facility] Outpatient Visit [facility] [address] [place] [address] [place] [address] [facility] [address] [place] [address] Social History Tobacco Use Types Packs/Day Years Used Date Smoking Tobacco: Never Smokeless Tobacco: Never Alcohol Use Standard Drinks/Week Comments No 0 (1 standard drink = 0.6 oz pur e alcohol) Comments Unknown Sex and Gender Information Value Date Recorded Sex Assigned at Not on file Legal Sex Female 6:17 AM MICROBIOLOGY LAB ASSISTANT Gender Identity Not on file Sexual Orientation Not on file documented as of this encounter Plan of Treatment Upcoming Encounters Date Type Department Care Team (Latest Contact Info) Description 01/05/2025 9:40 AM CDT Hospital Encounter [facility] - Perioperative Surgery [address] [place] [address] [place] [id number] [place] [address] [place] [phone] Surgery General 01/05/2025 9:40 AM CDT - 01/05/2025 11:03 AM CDT Surgery [facility] - Perioperative Surgery [address] [place] [address] Bridger Friedman MD [address] [place] [place] [address] [place] [phone] LEFT ARM PSEUDOANEURYSM RESECTIONA AND ACCUSEAL 01/05/2025 10:00 AM CDT Procedure visit [facility] Surgery [address] [place] [address], [address] [phone] Bridger Friedman MD [address] [place] [phone] 01/21/2025 1:10 PM CDT Office Visit [facility] - [address] [phone] Kim Davalos, TOOL MACHINIST-HEALTH AND SOCIAL CARE TEACHER [address] [place] [phone] 02/09/2025 2:15 PM CDT Hospital Encounter [facility] ENDOSCOPY [address] [place] [address] Aldo Knox MD [address] [place] [phone] Surgery General 02/09/2025 2:15 PM CDT - 02/09/2025 3:00 PM CDT Surgery [facility] ENDOSCOPY [facility] [place] [address] Aldo Knox MD [address] [place] [phone] COLONOSCOPY SCREEN--extended prep---dialysis pt--stat k+ 04/01/2025 11:00 AM CDT Appointment [facility] Health Vascular Services [address] [facility], [address] [place] [address] [place] [address] [facility] [address] [place] [address] Scheduled Procedures Name Priority Associated [...] documented as of this encounter Care Teams Resistance Welding Machine Operator Relationship Specialty Start Date End Date Meggan Littlejohn MD [address] [place], [place] [phone] PCP - General Internal Medicine 03/10/18 07/14/18 Gilles Morrison, CYRIL-HEALTH AND SOCIAL CARE TEACHER [address] [place] [address] PCP - General Nurse Practitioner 07/15/18 12/19/24 Griffin Velasquez PA [address] [place] [address] PCP - General Physician Long Term 12/20/24 documented as of this encounter
--- OUTSIDE RECORDS SUMMARY | 2024-12-31 19:23 | XMS_ITS ---
Author Organization [facility] Address [address] [place] [address] Care Team Providers Care Energy Engineer Name Role Phone Griffin Velasquez Primary Care Provider [phone] Transplant Episode Kidney Candidate [facility] ([place], [place]) - [facility] Evaluation began on 12/16/2024 Marked as Active on 12/16/2024 Kidney CoordinatorMelissa Mercado RN Phone: N/A Fax: N/A Email: N/A Scores Score Value Updated Exceptions/Reas ons CPRA Not available EPTS (Calc) 82 12/31/2024 [place] Organ Diagnosis Organ Primary Contributory Kidney Diabetes Mellitus - Type II Hype rtensive Nephrosclerosis Care Team Name Role Phone Fax Email Melissa Mercado RN Kidney Coordinator N/A N/A N/A Tara Hu Cold Mill Operator N/A N/A N/A Flavio Carty MD Referring Physician [phone] N/A Events Pre-Transplant Referred: 10/27/2024 Evaluation began: 12/16/2024 Dialysis History Dialysis History Start End Type Comments Center 03/04/2018 08/28/2024 [facility] 08/28/2024 In-center Hemodialysis [facility] Information Center Phone Fax Address [facility] [phone] [facility] [address] [facility] [phone] [address] [facility] [address]
--- NOTE | 2024-12-31 19:51 | ECG_ITS ---
Test Date: 2024-12-31 20:03:33 Measurements Intervals [place] Rate: 78 P: 30 NE: 206 QRS: -17 QRSD: 107 T: 27 QT: 396 QTc: 452 Interpretive Statements SINUS RHYTHM No previous ECG available for comparison Electronically Signed On 01-01-2025 16:10:32 CDT by Raghavendra Rosas M.D.
[2024-12-31 20:16] LABS: Hematocrit 39.8 % (35.0-42.0); Hemoglobin 12.3 g/dL (11.7-13.8); Immature Granulocyte Percent A 0.7 % (0.0-0.0); Lymphocytes Absolute Auto 2.09 K/mm3 (1.10-4.50); Mean Corpuscular HGB Conc 30.9 g/dL (32-36); Mean Corpuscular Hemoglobin 30.1 pg (27.0-31.0); Mean Corpuscular Volume 97.3 fL (78.0-102.0); Nucleated Red Blood Cells Absolute Auto 0.00 K/mm3 (0.00-0.00); Nucleated Red Blood Cells Perc 0.0 % (0-0.0); Platelet Count Result 224 K/mm3 (150-420); Red Blood Count 4.09 M/mm3 (4.20-5.40); White Blood Count 10.3 K/mm3 (4.8-10.8)
[2024-12-31 20:28] LABS: Alanine Aminotransferase 14 U/L (6-35); Albumin Level 3.9 g/dL (3.5-5.1); Alkaline Phosphatase 104 U/L (38-126); Anion Gap 15 mmol/L (4-12); Aspartate Amino Transferase 21 U/L (14-36); Bilirubin,Total 0.5 mg/dL (0.2-1.3); Blood Urea Nitrogen 42 mg/dL (7-17); Calcium 9.7 mg/dL (8.4-10.2); Carbon Dioxide 21 mmol/L (22-30); Chloride 101 mmol/L (98-107); Estimated CRCL calculation 8 ml/min; Estimated Glomerular Filt Rate 6; Glucose 135 mg/dL (65-110); Osmolality Calculated 296 mOsm/kg (285-295); Potassium 4.2 mmol/L (3.4-5.0); Sodium 137 mmol/L (137-145); Total Protein 7.4 g/dL (6.3-8.2)
[2024-12-31 20:40] LABS: Troponin I 0.016 ng/mL (0.000-0.034)
[2024-12-31 22:08] VITALS: BP 127/64; PULSE 72; RESP 20; O2SAT 98
== END 2024-12-31 22:08 | disposition home or self-care (01) ==
PROVIDERS: Emergency Provider Emergency Medicine; PCP Physician Assistant
DX: I95.1 Orthostatic hypotension (principal); I12.0 Hypertensive chronic kidney disease with stage 5 chronic kidney disease or end stage renal disease; E11.22 Type 2 diabetes mellitus with diabetic chronic kidney disease; N18.6 End stage renal disease; Z99.2 Dependence on renal dialysis; F17.200 Nicotine dependence, unspecified, uncomplicated
CPT/HCPCS: 36415; 70450; 80053; 82948; 84484; 85025; 93005; 99284

== ENCOUNTER 2025-01-15 20:43 | Emergency (ER) | payer MEDICARE, MEDICAID, SELFPAY ==
--- NOTE | ~2025-01-15 | XR_ITS ---
CHEST RADIOGRAPH, PA AND LATERAL CLINICAL HISTORY: hypotension . COMPARISON: 05/21/2024 TECHNIQUE: PA and lateral views of the chest. FINDINGS The cardiomediastinal silhouette is enlarged, unchanged. The lungs are clear. Vascular stent projects in the infraclavicular region, unchanged from prior. IMPRESSION: No focal infiltrate or effusion. Reviewed, dictated and finalized at location A.
[2025-01-15 20:44] VITALS: BP 120/50; PULSE 78; RESP 18; TEMP 36.6; O2SAT 95
--- NOTE | 2025-01-15 20:49 | ECG_ITS ---
Test Date: 2025-01-15 21:16:43 Measurements Intervals [place] Rate: 80 P: 36 FL: 203 QRS: -44 QRSD: 109 T: 64 QT: 410 QTc: 474 Interpretive Statements SINUS RHYTHM LEFT AXIS DEVIATION BORDERLINE AV CONDUCTION DELAY POOR R WAVE PROGRESSION BASELINE WANDER- I, II, V1-V6 BORDERLINE ECG Compared to ECG 12/31/2024 20:03:33 Left-axis deviation now present Electronically Signed On 01-16-2025 07:32:29 CDT by Walter Varela D.O.
--- NOTE | 2025-01-15 21:06 | ED_ITS ---
HPI - Weakness General Chief complaint: Weakness Stated complaint: weakness Time Seen by Provider: 01/15/25 20:46 History of Present Illness HPI Narrative: 69-year-old female with history of end-stage renal disease on dialysis. Does not make urine. She goes Saturday and had a complete dialysis session today with a remove 1.5 L of fluid. She has a history of hypertension, type 2 diabetes, hyperlipidemia and GERD. Patient presents to the emergency depart with complaints of orthostatic vitals and generalized weakness. She has had the symptoms before most recently last month and she went to [facility] where they had an unremarkable workup and hydrated the patient prior to discharge home. Patient has been going Saturday and Saturday without any issues at dialysis and getting approximately 1-2.5 L removed each time. She is currently undergoing candidacy for a kidney transplant. Patient denies any symptoms at this time and states that she just felt generally weak and lightheaded when she stood up. EMS noted orthostatic vital signs. Patient denies any complaints at this time, denies any pain, lightheadedness, dizziness. States that she gets symptomatic when she stands up or exerts herself but denies any chest pain or shortness of breath. Patient has a left upper extremity AV fistula and recently placed AV graft that has been utilized without difficulty. No overlying skin changes, fever or chills. Related Data Home Medications ?Medication ?Instructions ?Recorded ?Confirmed ?Last Taken ?Type carvedilol 12.5 mg tablet 12.5 mg PO BID 09/07/23 02/04/24 09/05/23 History dulaglutide 1.5 mg/0.5 mL 1.5 mg subcut WEEKLY 09/07/23 02/04/24 08/30/23 History subcutaneous pen injector (Trulicity) nifedipine 90 mg tablet,extended 90 mg PO DAILY 09/07/23 02/04/24 09/05/23 History release sevelamer carbonate 800 mg tablet 800 mg PO TID 09/07/23 02/04/24 09/05/23 History atorvastatin 40 mg tablet 40 mg PO DAILY 02/04/24 02/04/24 Unknown History Allergies Allergy/AdvReac Type Severity Reaction Status Date / Time captopril (From Capozide) Allergy Rash Verified 12/31/24 21:42 hydrochlorothiazide (From Allergy Rash Verified 12/31/24 21:42 Capozide) Review of Systems 2 Review of Systems: As reviewed above in [facility] Past Medical History Medical History Constipation GERD (gastroesophageal reflux disease) AV fistula Legal blindness Cataracts, bilateral Depression Type 2 diabetes mellitus High cholesterol Hypertension End-stage renal disease on hemodialysis Surgical History Surgical History H/O cataract removal with insertion of prosthetic lens Family History Family History Mother Breast cancer Father Heart disease Diabetes mellitus Hypertension Sibling Lung cancer Diabetes mellitus Social History Social History Smoking status: Current every day smoker Alcohol intake: never Substance use: never Do You Feel Safe in your Home?: Yes Lack of Transportation: No Lack of Food: Never True Current Housing: I Have Housing Concerned About Future Housing: No Difficulty Paying Gas/Electric Bills: No Difficulty Paying for Meds: No Currently Unemployed: No Education: Don't Know Difficulty w/ Childcare or Family Care: No Spiritual care concerns: No Exam 2 Narrative: GENERAL: [Well-appearing, well-nourished, and in no acute distress.] HEAD: [Normocephalic, atraumatic.] EYES: [PERRLA and EOMI.] ENT: Nares clear, no rhinorrhea or epistaxis. Mucous membranes moist. Poor oral dentition NECK: Supple. CHEST: [Clear to auscultation. No respiratory distress.] HEART: [Regular rate and rhythm]. No murmur heard. [Normal peripheral pulses.] ABDOMEN: [Soft, nondistended], [nontender], [No rigidity or guarding] EXTREMITIES: Normal range of motion. [No edema.] Left upper extremity AV graft and fistula with palpable thrill, no overlying skin changes, sutures intact without any redness, erythema or cellulitic skin changes or purulence. SKIN: Warm, dry, no rash. NEURO: [No focal deficits]. Alert and oriented [x3.] PSYCH: [Normal mood and affect.] Course Vital Signs Vital signs: Vital Signs Temperature 36.6 C 01/15/25 20:44 Pulse Rate 78 01/15/25 20:44 Respiratory Rate 18 01/15/25 20:44 Blood Pressure 120/50 L 01/15/25 20:44 Pulse Oximetry 95 01/15/25 20:44 Oxygen Delivery Room Air 01/15/25 20:44 Temperature 36.6 C 01/16/25 00:10 Pulse Rate 59 L 01/16/25 00:10 Respiratory Rate 18 01/16/25 00:10 Blood Pressure 124/73 01/16/25 00:10 Pulse Oximetry 99 01/16/25 00:10 Oxygen Delivery Room Air 01/15/25 20:44 MDM - Weakness MDM Narrative Medical decision making narrative: 69-year-old female with history of end-stage renal disease on dialysis. Does not make urine. She goes Saturday and had a complete dialysis session today with a remove 1.5 L of fluid. She has a history of hypertension, type 2 diabetes, hyperlipidemia and GERD. Patient presents to the emergency depart with complaints of orthostatic vitals and generalized weakness. She has had the symptoms before most recently last month and she went to [facility] where they had an unremarkable workup and hydrated the patient prior to discharge home. Patient has been going Saturday and Saturday without any issues at dialysis and getting approximately 1-2.5 L removed each time. She is currently undergoing candidacy for a kidney transplant. Patient denies any symptoms at this time and states that she just felt generally weak and lightheaded when she stood up. EMS noted orthostatic vital signs. Patient denies any complaints at this time, denies any pain, lightheadedness, dizziness. States that she gets symptomatic when she stands up or exerts herself but denies any chest pain or shortness of breath. Patient has a left upper extremity AV fistula and recently placed AV graft that has been utilized without difficulty. No overlying skin changes, fever or chills. Patient otherwise appears well not any acute distress. Blood pressure and heart rate are normal here in triage although diastolic is slightly low likely from vascular depletion and over-diuresis. Normal vital signs otherwise were no fever or hypoxia. She has no symptoms at rest. Orthostatic vital signs are positive and she was given fluid hydration with a L of fluid bolus. Laboratory studies sent off including a chest x-ray, troponin, magnesium and electrolyte panel. Patient is asymptomatic and likely will be a good candidate for outpatient follow-up assuming unremarkable workup and improvement with fluids. Orthostatic vitals are improved, diastolic improvement fluids, laboratory studies showed no leukocytosis or significant anemia worse than baseline. Normal platelet count. Electrolytes normal, BUN and creatinine around baseline. Glucose around normal. LFTs normal. Troponin normal. Chest x-ray without any findings. EKG without any ischemia. Patient felt comfortable and wishes to go home. She has no emergent or urgent findings on her workup today and we discussed potential next steps including discussion with her kidney doctor PCP about decreasing fluid removal during dialysis. Patient comfortable the plan and safe for discharge with return precautions. Medical Records Attestation: I reviewed the patient's medical records. Lab Data Attestation: I reviewed the patient's lab results. 01/15/25 21:02 01/15/25 21:02 Labs: Lab Results 01/15/25 01/15/25 01/15/25 Range/Units 21:02 21:02 21:02 WBC 8.9 (4.5-10.0) K/mm3 RBC 3.77 L (4.2-5.4) M/mm3 Hgb 11.3 L (12.0-15.0) g/dL Hct 35.7 L (37.0-47.0) % MCV 94.7 (80-100) fl MCH 30.0 (26-34) pg MCHC 31.7 L (32-36) g/dl RDW 15.7 H (11.5-14.5) % Plt Count 241 (150-375) k/mm3 MPV 9.8 (7.4-10.4) fl Immature Gran % (Auto) 1.5 H (0-0.5) % Neut % (Auto) 66.4 (45.5-73.1) % Lymph % (Auto) 13.6 L (18.3-44.2) % Donley % (Auto) 11.1 H (2.6-8.5) % Eos % (Auto) 6.5 H (0-4.4) % Baso % (Auto) 0.9 (0.2-1.2) % Lymph # (Auto) 1.21 (0.9-3.2) K/mm3 Donley # (Auto) 1.0 H (0.1-0.6) K/mm3 Eos # (Auto) 0.6 H (0-0.3) K/mm3 Baso # (Auto) 0.1 (0.0-0.1) K/mm3 Abs Immat Gran (auto) 0.13 H (0.00-0.031) K/mm3 Absolute Neuts (auto) 5.9 (1.3-6.7) K/mm3 Absolute Nucleated RBC 0.000 (0.0-0.012) K/mm3 Nucleated RBC % 0.0 (0.0-0.2) % Sodium Cancelled 133 L Potassium Cancelled 4.4 Chloride Cancelled Carbon Dioxide Anion Gap BUN Creatinine Estim Creat Clear Calc Estimated GFR Glucose Calcium Magnesium (1.6-2.3) mg/dL Total Bilirubin AST ALT Alkaline Phosphatase Troponin I (0.000-0.034) ng/mL Total Protein Albumin 01/15/25 01/15/25 01/15/25 Range/Units 21:02 21:02 21:02 WBC (4.5-10.0) K/mm3 RBC (4.2-5.4) M/mm3 Hgb (12.0-15.0) g/dL Hct (37.0-47.0) % MCV (80-100) fl MCH (26-34) pg MCHC (32-36) g/dl RDW (11.5-14.5) % Plt Count (150-375) k/mm3 MPV (7.4-10.4) fl Immature Gran % (Auto) (0-0.5) % Neut % (Auto) (45.5-73.1) % Lymph % (Auto) (18.3-44.2) % Donley % (Auto) (2.6-8.5) % Eos % (Auto) (0-4.4) % Baso % (Auto) (0.2-1.2) % Lymph # (Auto) (0.9-3.2) K/mm3 Donley # (Auto) (0.1-0.6) K/mm3 Eos # (Auto) (0-0.3) K/mm3 Baso # (Auto) (0.0-0.1) K/mm3 Abs Immat Gran (auto) (0.00-0.031) K/mm3 Absolute Neuts (auto) (1.3-6.7) K/mm3 Absolute Nucleated RBC (0.0-0.012) K/mm3 Nucleated RBC % (0.0-0.2) % Sodium Potassium Chloride 98 Carbon Dioxide Cancelled 25 Anion Gap Cancelled 10 BUN Cancelled Creatinine Estim Creat Clear Calc Estimated GFR Glucose Calcium Magnesium (1.6-2.3) mg/dL Total Bilirubin AST ALT Alkaline Phosphatase Troponin I (0.000-0.034) ng/mL Total Protein Albumin 01/15/25 01/15/25 01/15/25 Range/Units 21:02 21:02 21:02 WBC (4.5-10.0) K/mm3 RBC (4.2-5.4) M/mm3 Hgb (12.0-15.0) g/dL Hct (37.0-47.0) % MCV (80-100) fl MCH (26-34) pg MCHC (32-36) g/dl RDW (11.5-14.5) % Plt Count (150-375) k/mm3 MPV (7.4-10.4) fl Immature Gran % (Auto) (0-0.5) % Neut % (Auto) (45.5-73.1) % Lymph % (Auto) (18.3-44.2) % Donley % (Auto) (2.6-8.5) % Eos % (Auto) (0-4.4) % Baso % (Auto) (0.2-1.2) % Lymph # (Auto) (0.9-3.2) K/mm3 Donley # (Auto) (0.1-0.6) K/mm3 Eos # (Auto) (0-0.3) K/mm3 Baso # (Auto) (0.0-0.1) K/mm3 Abs Immat Gran (auto) (0.00-0.031) K/mm3 Absolute Neuts (auto) (1.3-6.7) K/mm3 Absolute Nucleated RBC (0.0-0.012) K/mm3 Nucleated RBC % (0.0-0.2) % Sodium Potassium Chloride Carbon Dioxide Anion Gap BUN 31 H D Creatinine Cancelled 4.13 H Estim Creat Clear Calc Cancelled 13 Estimated GFR Cancelled Glucose Calcium Magnesium (1.6-2.3) mg/dL Total Bilirubin AST ALT Alkaline Phosphatase Troponin I (0.000-0.034) ng/mL Total Protein Albumin 01/15/25 01/15/25 01/15/25 Range/Units 21:02 21:02 21:02 WBC (4.5-10.0) K/mm3 RBC (4.2-5.4) M/mm3 Hgb (12.0-15.0) g/dL Hct (37.0-47.0) % MCV (80-100) fl MCH (26-34) pg MCHC (32-36) g/dl RDW (11.5-14.5) % Plt Count (150-375) k/mm3 MPV (7.4-10.4) fl Immature Gran % (Auto) (0-0.5) % Neut % (Auto) (45.5-73.1) % Lymph % (Auto) (18.3-44.2) % Donley % (Auto) (2.6-8.5) % Eos % (Auto) (0-4.4) % Baso % (Auto) (0.2-1.2) % Lymph # (Auto) (0.9-3.2) K/mm3 Donley # (Auto) (0.1-0.6) K/mm3 Eos # (Auto) (0-0.3) K/mm3 Baso # (Auto) (0.0-0.1) K/mm3 Abs Immat Gran (auto) (0.00-0.031) K/mm3 Absolute Neuts (auto) (1.3-6.7) K/mm3 Absolute Nucleated RBC (0.0-0.012) K/mm3 Nucleated RBC % (0.0-0.2) % Sodium Potassium Chloride Carbon Dioxide Anion Gap BUN Creatinine Estim Creat Clear Calc Estimated GFR 11 L Glucose Cancelled 152 H Calcium Cancelled 9.9 Magnesium 1.9 (1.6-2.3) mg/dL Total Bilirubin Cancelled AST ALT Alkaline Phosphatase Troponin I (0.000-0.034) ng/mL Total Protein Albumin 01/15/25 01/15/25 01/15/25 Range/Units 21:02 21:02 21:02 WBC (4.5-10.0) K/mm3 RBC (4.2-5.4) M/mm3 Hgb (12.0-15.0) g/dL Hct (37.0-47.0) % MCV (80-100) fl MCH (26-34) pg MCHC (32-36) g/dl RDW (11.5-14.5) % Plt Count (150-375) k/mm3 MPV (7.4-10.4) fl Immature Gran % (Auto) (0-0.5) % Neut % (Auto) (45.5-73.1) % Lymph % (Auto) (18.3-44.2) % Donley % (Auto) (2.6-8.5) % Eos % (Auto) (0-4.4) % Baso % (Auto) (0.2-1.2) % Lymph # (Auto) (0.9-3.2) K/mm3 Donley # (Auto) (0.1-0.6) K/mm3 Eos # (Auto) (0-0.3) K/mm3 Baso # (Auto) (0.0-0.1) K/mm3 Abs Immat Gran (auto) (0.00-0.031) K/mm3 Absolute Neuts (auto) (1.3-6.7) K/mm3 Absolute Nucleated RBC (0.0-0.012) K/mm3 Nucleated RBC % (0.0-0.2) % Sodium Potassium Chloride Carbon Dioxide Anion Gap BUN Creatinine Estim Creat Clear Calc Estimated GFR Glucose Calcium Magnesium (1.6-2.3) mg/dL Total Bilirubin 0.4 AST Cancelled 22 ALT Cancelled 9 Alkaline Phosphatase Cancelled Troponin I (0.000-0.034) ng/mL Total Protein Albumin 01/15/25 01/15/25 01/15/25 Range/Units 21:02 21:02 21:02 WBC (4.5-10.0) K/mm3 RBC (4.2-5.4) M/mm3 Hgb (12.0-15.0) g/dL Hct (37.0-47.0) % MCV (80-100) fl MCH (26-34) pg MCHC (32-36) g/dl RDW (11.5-14.5) % Plt Count (150-375) k/mm3 MPV (7.4-10.4) fl Immature Gran % (Auto) (0-0.5) % Neut % (Auto) (45.5-73.1) % Lymph % (Auto) (18.3-44.2) % Donley % (Auto) (2.6-8.5) % Eos % (Auto) (0-4.4) % Baso % (Auto) (0.2-1.2) % Lymph # (Auto) (0.9-3.2) K/mm3 Donley # (Auto) (0.1-0.6) K/mm3 Eos # (Auto) (0-0.3) K/mm3 Baso # (Auto) (0.0-0.1) K/mm3 Abs Immat Gran (auto) (0.00-0.031) K/mm3 Absolute Neuts (auto) (1.3-6.7) K/mm3 Absolute Nucleated RBC (0.0-0.012) K/mm3 Nucleated RBC % (0.0-0.2) % Sodium Potassium Chloride Carbon Dioxide Anion Gap BUN Creatinine Estim Creat Clear Calc Estimated GFR Glucose Calcium Magnesium (1.6-2.3) mg/dL Total Bilirubin AST ALT Alkaline Phosphatase 84 Troponin I < 0.012 (0.000-0.034) ng/mL Total Protein Cancelled 7.4 Albumin Cancelled 3.7 Imaging Data Attestation: I personally reviewed and interpreted this imaging study as follows: My impression: Impressions Chest X-Ray 01/15/25 22:20 IMPRESSION: No focal infiltrate or effusion. Discharge Plan Discharge Clinical Impression: Orthostatic dizziness, End stage renal disease on dialysis Patient Disposition: Home Condition: Stable Instructions: Antibiotic Form, Dehydration (DC), End Stage Kidney Disease (ED) Additional Instructions: All of your laboratory studies are normal here. Your blood pressure and symptoms have improved with fluids. Your dialysis sessions might be taking off too much fluid causing her symptoms and postural dizziness. Talk to your primary care provider and kidney specialist about this to make adjustments during dialysis sessions. Return with any emergent concerns. Maintain good oral intake and hydration. Patient Language: Marshallese Prescriptions: No Action nifedipine 30 mg tablet extended release 30 mg PO DAILY Qty: 30 0RF atorvastatin 40 mg tablet 40 mg PO DAILY ondansetron 4 mg tablet,disintegrating 4 mg PO Q8H PRN (Reason: nausea and vomiting) Qty: 20 0RF carvedilol 12.5 mg tablet 12.5 mg PO BID nifedipine 90 mg tablet extended release 90 mg PO DAILY sevelamer carbonate 800 mg tablet 800 mg PO TID Trulicity 1.5 mg/0.5 mL pen injector 1.5 mg SUBCUT WEEKLY Rx Instructions: FRIDAYS aspirin [Children's Aspirin] 81 mg Tablet,Chewable 81 mg PO DAILY@0800 Qty: 30 0RF Linzess 72 mcg capsule 72 mcg PO DAILY 90 Days Qty: 90 3RF omeprazole 20 mg capsule,delayed release(DR/EC) 20 mg PO DAILY 30 Days Qty: 30 5RF Follow-up/Referrals: Ron,NIKKI Cobos [Primary Care Provider] - Time of Disposition: 23:48
[2025-01-15] MEDS: LACTATED RINGERS 1,000 ML 999 ML IV CONT (21:12)
[2025-01-15 21:16] LABS: Hematocrit 35.7 % (37.0-47.0); Hemoglobin 11.3 g/dL (12.0-15.0); Immature Granulocyte Percent A 1.5 % (0-0.5); Lymphocytes Absolute Auto 1.21 K/mm3 (0.9-3.2); Mean Corpuscular HGB Conc 31.7 g/dl (32-36); Mean Corpuscular Hemoglobin 30.0 pg (26-34); Mean Corpuscular Volume 94.7 fl (80-100); Nucleated Red Blood Cells Absolute Auto 0.000 K/mm3 (0.0-0.012); Nucleated Red Blood Cells Perc 0.0 % (0.0-0.2); Platelet Count Result 241 k/mm3 (150-375); Red Blood Count 3.77 M/mm3 (4.2-5.4); White Blood Count 8.9 K/mm3 (4.5-10.0)
[2025-01-15 21:35] LABS: Alanine Aminotransferase 9 U/L (6-35); Albumin Level 3.7 g/dL (3.5-5.1); Alkaline Phosphatase 84 U/L (38-126); Anion Gap 10 mmol/L (4-12); Aspartate Amino Transferase 22 U/L (14-36); Bilirubin,Total 0.4 mg/dL (0.2-1.3); Blood Urea Nitrogen 31 mg/dL (7-17); Calcium 9.9 mg/dL (8.4-10.2); Carbon Dioxide 25 mmol/L (22-30); Chloride 98 mmol/L (98-107); Estimated CRCL calculation 13 ml/min; Estimated Glomerular Filt Rate 11; Glucose 152 mg/dL (65-110); Magnesium 1.9 mg/dL (1.6-2.3); Potassium 4.4 mmol/L (3.4-5.0); Sodium 133 mmol/L (137-145); Total Protein 7.4 g/dL (6.3-8.2)
[2025-01-15 21:46] LABS: Troponin I < 0.012 ng/mL (0.000-0.034)
--- OUTSIDE RECORDS SUMMARY | 2025-01-15 21:54 | XMS_ITS | Encounter Summary ---
Author Organization [facility] Address [address] [place] [address] Care Team Providers Care Earth Science Professor Name Role Phone Gilles Morrison COTTON FARMWORKER-ADJUNCT BUSINESS INSTRUCTOR Primary Care Provider Griffin Velasquez Primary Care Provider [phone] Encounter Details Date Type Department Care Team (Late st Contact Info) Description 03/22/2023 Telephone [facility] . Wound Care [id number] [facility] , [address] [id number] Binh Messina, SERGIO Social History [...] on file Legal Sex Female 6:17 AM CLAIMS ADJUSTOR Gender Identity Not on file Sexual Orientation Not on file documented as of this encounter Plan of Treatment Upcoming Encounters Date Type Department Care Team (Latest Contact Info) Description 01/21/2025 1:10 PM CDT Office Visit [facility] - Surgery [id number] [place] [address], [address] [place] [phone] Kim Davalos, COTTON FARMWORKER-ADJUNCT BUSINESS INSTRUCTOR [id number] [place] [address] [address] [place] [address] 02/09/2025 2:15 PM CDT Hospital Encounter [facility] [address] [place] [phone] [place] [address] [place] [phone] Surgery General 02/09/2025 2:15 PM CDT - 02/09/2025 3:00 PM CDT Surgery [facility] [address] [place] [phone] Aldo Knox MD [address] [place] [phone] COLONOSCOPY SCREEN--extended prep---dialysis pt--stat k+ 03/04/2025 1:45 PM CDT Appointment [facility] Services [address] [place] [address], [address] [place] [address] Jose Magaña MD [address] [place] [address] [address] [place] [address] Scheduled Procedures Name Priority Associated Diagnoses Date/Ti me COLONOSCOPY SCREEN Screen for colon cancer Pre-transplant evaluation for kidney transplant 02/09/2025 2:15 PM CDT documented as of this encounter Visit Diagnoses Not on filedocumented in this encounter Care Teams Earth Science Professor Relationship Specialty Start Date End Date Gilles Morrison, COTTON FARMWORKER-ADJUNCT BUSINESS INSTRUCTOR [address] [place] [id number] PCP - General Nurse Practitioner 07/15/18 12/19/24 Griffin Velasquez PA [address] [place] [address] PCP - General Physician Medical Radiation Therapist 12/20/24 documented as of this encounter
--- OUTSIDE RECORDS SUMMARY | 2025-01-15 21:54 | XMS_ITS ---
Author Organization [facility] Address [address] [facility] [place] [address] Care Team Providers Care Puttying And Calking Supervisor Name Role Phone Griffin Velasquez Primary Care Provider [phone] Transplant Episode Kidney Candidate [facility] ([place], [place]) - [facility] Evaluation began on 12/16/2024 Marked as Active on 12/16/2024 Kidney CoordinatorMelissa Mercado RN Phone: N/A Fax: N/A Email: N/A Scores Score Value Updated Exceptions/Reas ons CPRA Not available EPTS (Calc) 82 01/15/2025 [place] [facility] Diagnosis Organ Primary Contributory Kidney Diabetes Mellitus - Type II Hype rtensive Nephrosclerosis Care Team Name Role Phone Fax Email Melissa Mercado RN Kidney Coordinator N/A N/A N/A Tara uH Oracle Database Architect N/A N/A N/A Flavio Carty MD Referring Physician [phone] N/A Events Pre-Transplant Referred: 10/27/2024 Evaluation began: 12/16/2024 Dialysis History Dialysis History Start End Type Comments Center 03/04/2018 08/28/2024 [facility] 08/28/2024 In-center Hemodialysis [facility] Information Center Phone Fax Address [facility] [phone] [facility] [address] [facility] [phone] 6 [facility] [id number]
--- OUTSIDE RECORDS SUMMARY | 2025-01-15 21:54 | XMS_ITS | Encounter Summary ---
Author Organization [facility] Address [address] [place] [address] Care Team Providers Care Fire Warden Name Role Phone Unavailable Primary Care Provider Unavailabl e Encounter Details Date Type Department Care Team (Late st Contact Info) Description 01/15/2025 Orders Only [facility] [address] [place] [address] Flavio Carty MD [address] [place] [address] Social History Tobacco Use Types Packs/Day Years Used Date Smoking Tobacco: Never Assessed Comments Unknown Sex and Gender Information Value Date Recorded Sex Assigned at Female 08/24/2024 2:47 PM CDT Legal Sex Female 2:42 PM CDT Gender Identity Not on file Sexual Orientation Not on file documented as of this encounter Plan of Treatment Not on file documented as of this encounter Results * (ABNORMAL) CBC, AUTO, NO DIFF (01/15/2025 8:00 AM CDT) WBC 8.86 4.00 - 10.80 x10'3/uL 01/15/2025 1:44 PM CDT [facility] RBC 3.66(L) 4.10 - 5.40 x10'6/uL 01/15/2025 1:44 PM CDT [facility] HGB 11.2(L) 12.0 - 16.0 G/DL 01/15/2025 1:44 PM CDT [facility] HCT 33.6(L) 36.0 - 47.0 % 01/15/2025 1:44 PM CDT [facility] MCV 91.8 78.0 - 100.0 FL 01/15/2025 1:44 PM CDT [facility] MCH 30.6 27.0 - 31.0 PG 01/15/2025 1:44 PM CDT [facility] MCHC 33.3 33.0 - 36.0 G/DL 01/15/2025 1:44 PM CDT [facility] RDW 15.5(H) 11.5 - 14.5 % 01/15/2025 1:44 PM CDT [facility] PLT 271 150 - 350 x10'3/uL 01/15/2025 1:44 PM CDT [facility] MPV 10.2 7.4 - 10.4 FL 01/15/2025 1:44 PM CDT [facility] 01/15/2025 8:00 AM CDT Flavio Carty MD LABORATORY Final Result [facility] [address] [place] [address], documented in this encounter Visit Diagnoses Diagnosis ESRD (end stage renal disease) (CMS/HCC [facility]/HCC)- Primary End stage renal disease documented in this encounter
--- OUTSIDE RECORDS SUMMARY | 2025-01-15 21:54 | XMS_ITS | Clinical Summary ---
Author Organization [facility] Address [address] [place] [address] Care Team Providers Care Analytics Consultant Name Role Phone Griffin Velasquez Primary Care Provider [phone] Source Comments [facility],non-owned Affiliates and Associated Physician Practices is amultiple site organization consisting of ambulatory clinics and hospital sitesin [place], [place], [place] and [place]. This disclosure is being madepursuant to the Care Everywhere program and may not contain all information available regarding this patient. Last updated 18.[facility] Allergies Active Allergy Reactions Criticality Noted Date Comments Captopril-Hydrochlorothiazide Urticaria Medium Hydrochlorothiazide Rash Medium 03/10/2018 Medications * Be aware that medications may not be up to date on this document. Alwaysverify current medications with the patient. carvedilol (COREG) 12.5 MG tablet Take 1 (one) tablet by mouth 2 times daily Active One Touch Delica Lancets Activ e blood glucose test strip TEST TWICE DAILY Ac tive Blood Glucose Monitoring Suppl (ONE TOUCH ULTRA 2) W/DEVICE KIT Active sevelamer carbonate (RENVELA) 800 MG Take 1 (one) tablet by mouth 3 times daily with meals Take 2 with meals Active TRULICITY 1.5 MG/0.5ML injection Inject 1.5 mg subcutaneously once daily Saturday05/03/20 20 Active atorvastatin (Lipitor) 40 MG tablet Take 1 (one) tablet by mouth at bedtime Active Glucagon, rDNA, (Glucagon Emergency) 1 MG KIT 06/24/19 23 Active aspirin EC (Aspirin Low Dose) 81 MG tablet Take 1 (one) tablet by mouth once daily Active omeprazole (PriLOSEC) 20 MG capsule Take 1 (one) capsule by mouth daily before breakfast Active NIFEdipine CR 24hr (Adalat CC) 30 MG tablet Take 1 (one) tablet by mouth once daily Take on an empty stomach. Active HYDROcodone-ac etaminophen ([place]) 5-325 MG tabletIndicati ons:ESRD (end stage renal disease) (HCC) Take 1 (one) tablet by mouth every 6 hours as needed for Pain 30 tablet 5 4:13 PM CDT 01/06/20 25 Active NIFEdipine CR 24hr (ADALAT CC) 60 MG tablet Take 30 mg by mouth once daily 02/01/20 18 025 Discontin ued(List Clean-Up) NIFEdipine CR 24hr (Adalat CC) 90 MG tablet 07/04/19 24 025 Discontin ued(List Clean-Up) ondansetron (Zofran) 4 MG tablet 07/03/19 24 025 Discontin ued(List Clean-Up) doxycycline hyclate (Vibramycin) 100 MG capsule 09/13/19 24 025 Discontin ued(List Clean-Up) ondansetron, disintegrating , (Zofran ODT) 4 MG tablet DISSOLVE 1 TABLET ON THE TONGUE EVERY 8 HOURS NEEDED FOR NAUSEA AND VOMITING 025 Discontin ued(List Clean-Up) terbinafine (LamISIL) 1 % cream APPLY TO THE AFFECTED AND SURROUNDING AREAS OF SKIN BY TOPICAL ROUTE ONCE DAILY 08/01/19 24 025 Discontin ued(List Clean-Up) Active Problems Problem Noted Date Diagnosed Date Pre-op evaluation 01/01/2025 Open wound of right great toe 03/19/2023 Encounter regarding vascular access for dialysis for end-stage renal disease 07/18/2022 Hypoglycemia 06/22/2022 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 ESRD (end stage renal disease) 04/10/2018 Inadequate flow of hemodialysis AV fistula Encounters Date Type Department Care Team Description 01/07/2025 1:50 PM CDT Office Visit [facility] Surgery [address] [facility], [address] [place] [phone] Kim Davalos APRN-EJ Postop check (Primary Dx) 01/07/2025 Travel 01/05/2025 12:05 PM CDT - 01/05/2025 1:28 PM CDT Surgery [facility] Perioperative Surgery [address] [place] [address] Bridger Friedman MD LEFT ARM PSEUDOANEURYSM RESECTION AND ACCUSEAL GRAFT PLACEMENT 01/05/2025 11:33 AM CDT Anesthesia Event [facility] Perioperative Surgery [address] [place] [address] Vanda Rodriges DO Han, Jason A, MD 01/05/2025 10:00 AM CDT - 01/05/2025 4:25 PM CDT Hospital Encounter [facility] Perioperative Surgery [address] [place] [address] Bridger Friedman MD Surgery General Discharge Disposition: Home or Self Care 01/05/2025 Travel 01/01/2025 Travel 12/09/2024 Telephone [facility] [address] [place] [address] Clarice Weiss, RN Kidney Transplant Evaluation 12/02/2024 Telephone [facility] [address] [place] [address] Clarice Weiss, RN Kidney Transplant Evaluation 11/23/2024 1:40 PM CDT Office Visit [facility] Surgery [address] [facility], [address] [place] [address] Bridger Friedman MD Pseudoaneurysm of arteriovenous dialysis fistula, initial encounter (Primary Dx) 11/23/2024 Travel from Last 3 Months Family History [...] on file Legal Sex Female 6: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 Gender Identity Not on file Sexual Orientation Not on file Last Filed Vital Signs Vital Sign Reading Time Taken Comments Blood Pressure 149/62 01/05/2025 3:46 PM CDT Pulse 73 01/05/2025 3:46 PM CDT Temperature 36.2 C (97.2 F) 01/05/2025 1:09 PM CDT Respiratory Rate 18 01/05/2025 1:31 PM CDT Oxygen Saturation 94% 01/05/2025 3:46 PM CDT Inhaled Oxygen Concentration - - Weight 81.6 kg (180 lb) 01/07/2025 1:42 PM CDT Height 165.1 cm (5' 5) 01/07/2025 1:42 PM CDT Body Mass Index 29.95 01/07/2025 1:42 PM CDT Plan of Treatment Upcoming Encounters Date Type Department Care Team (Latest Contact Info) Description 01/21/2025 1:10 PM CDT Office Visit [facility] - Surgery [address] [facility], [address] [address] Kim Davalos, TOWER TECHNICIAN-WAIT STAFF [address] [facility] [address] [place] [phone] 02/09/2025 2:15 PM CDT Hospital Encounter [facility] [address] [place] [phone] Aldo Knox MD [address] [place] [address] Surgery General 02/09/2025 2:15 PM CDT - 02/09/2025 3:00 PM CDT Surgery [facility] [address] [place] [phone] Aldo Knox MD [address] [place] [phone] COLONOSCOPY SCREEN--extended prep---dialysis pt--stat k+ 03/04/2025 1:45 PM CDT Appointment [facility] Health Vascular Services [address] [facility], [address] [place] [address] [place] [address] [facility] [address] [place] [address] Scheduled Procedures Name Priority Associated [...] 1-dose series) 2016 COVID-19 VACCINE (1 - 2023- season) 2024 DEPRESSION SCREENING 06/10/2024 MEDICARE AWV CALENDAR YEAR 2024 INFLUENZA VACCINE (#1) 2025 3, 04/11/2022, 03/12/2022, Additional history exists SCREENING FOR DIABETES 01/06/2028 5, 06/27/2022, 06/27/2022, Additional history exists HEPATITIS C SCREENING Completed [...] on patient's age to complete this topic Medical Devices Implanted Type Area Vinyl Flooring Installer Device Identifier Shelf Expiration Date Model / Serial / Lot Graft Vasc 4-7mm 45cm [employer] Acuseal Tpr - [id number] Implanted:Qty: 1 on 01/05/2025 by Bridger Friedman MD at [facility] Left: Arm [employer] 06/11/2027 [id number] / [id number] / N/A Procedures Procedure Name Priority Date/Time Associated Diagnosis Comments NC REPR DFCT ART AXILLO-BRACH 01/05/2025 11:36 AM CDT BASIC METABOLIC PANEL (CALCIUM TOTAL) STAT 01/05/2025 10:21 AM CDT Pre-op evaluation HEPATITIS C ANTIBODY STAT 04/12/2022 2:09 PM CDT from Last 3 Months or Most Recently Relevant to Health Maintenance Results * (ABNORMAL) BASIC METABOLIC PANEL (CALCIUM TOTAL) (01/05/2025 10:21 AM CDT) [facility] Glucose 87 70 - 99 mg/dL 01/05/2025 10:54 AM CDT [facility] Sodium 140 136 - 145 mmol/L 01/05/2025 10:54 AM CDT [facility] Potassium 4.7 3.5 - 5.1 mmol/L 01/05/2025 10:54 AM CDT [facility] Chloride 103 98 - 107 mmol/L 01/05/2025 10:54 AM CDT [facility] CO2 24 22 - 29 mmol/L 01/05/2025 10:54 AM CDT [facility] Calcium 9.8 8.4 - 10.4 mg/dL 01/05/2025 10:54 AM CDT [facility] Anion Gap 13 6 - 16 mmol/L 01/05/2025 10:54 AM CDT [facility] BUN 30(H) 7 - 26 mg/dL 01/05/2025 10:54 AM CDT [facility] Creatinine 6.23(H) 0.57 - 1.11 mg/dL 01/05/2025 10:54 AM CDT [facility] eGFR by CKD-EPI 7(L) >=90 mL/min/1.7 3 m2 01/05/2025 10:54 AM CDT [facility] Comment:Estimated Glomerular Filtration Rate (eGFR) calculated using the CKD-EPI Creatinine Equation (2020), per the National Kidney Foundation and [place] Society of Nephrology recommendations. Blood BLOOD SPECIMEN / Unknown Venipuncture / Unknown 01/05/2025 10:21 AM CDT 01/05/2025 10:38 AM CDT us Angela Goode MD LAB - CHEMISTRY ORDERABLE S Final Result [facility] [address] [place] [address] * HEPATITIS C ANTIBODY (04/12/2022 2:09 PM CDT) [facility] HCV Antibody Screen Non Reactive Non Reactive 04/12/2022 2:58 PM CDT [facility] Blood BLOOD SPECIMEN / Unknown Venipuncture / Unknown 04/12/2022 2:09 PM CDT 04/12/2022 2:19 PM CDT Narrative [facility] - 04/12/2022 2:58 PM CDT Non Reactive - Antibodies to Hepatitis C virus (HCV) were not detected, result does not exclude early acute HCV infection. us Suhaib Srinivas Ased DO LAB - CHEMISTRY ORDERABLES Final Result [facility] [address] [place] [address] from Last 3 Months or Most Recently Relevant to Health Maintenance Insurance [facility] MANAGED MEDICARE ADV [facility] Care Teams Analytics Consultant Relationship Specialty Start Date End Date Griffin Velasquez PA [address] [place] [address] PCP - General Physician Production Director 12/20/24
--- OUTSIDE RECORDS SUMMARY | 2025-01-15 21:54 | XMS_ITS | Clinical Summary ---
Author Organization [facility] Address [facility] [place] [address] Care Team Providers Care Yard Operator Name Role Phone Unavailable Primary Care Provider Unavailabl e Encounters Date Type Department Care Team Description 01/15/2025 1:36 PM CDT Hospital Encounter [facility] [address] [place] [address] Flavio Carty MD 01/15/[address] [facility] [address] [place] [address] Flavio Carty MD from Last 3 Months Social History Tobacco Use Types Packs/Day Years Used Date Smoking Tobacco: Never Assessed Comments Unknown Sex and Gender Information Value Date Recorded Sex Assigned at Female 08/24/2024 2:47 PM CDT Legal Sex Female 2:42 PM CDT Gender Identity Not on file Sexual Orientation Not on file Plan of Treatment Health Maintenance Due Date Last Done Comments Colorectal Cancer Screening Colonoscopy (10 Years) 1956 Hepatitis C 1974 DTaP, Tdap and Td Vaccines ( 1 - Tdap) 1975 Mammogram Screening 1996 Pneumococcal Vaccine: 50+ Ye ars (1 of 1 - PCV) 2006 Zoster Vaccines (1 of 2) 2006 RSV Immunization or 60+ Years (1 - Risk 60-74 years 1-dose series) 2016 Annual Medicare Wellness Visit 2021 Dexa Scan (General) 2021 COVID-19 Vaccine ( - 2023-2 5 season) 2024 Meningococcal B Vaccine Aged Out No l onger eligible based on patient's age to complete this topic Meningococcal Vaccine Aged Out No zuleyka thea eligible based on patient's age to complete this topic RSV Immunizations Under 20 Months Aged Out No longer eligible based on patient's age to complete this topic Procedures Procedure Name Priority Date/Time Associated Diagnosis Comments CBC, AUTO, NO DIFF Routine 01/15/2025 8: 00 AM CDT ESRD (end stage renal disease) ([facility]) from Last 3 Months Results * (ABNORMAL) CBC, AUTO, NO DIFF (01/15/2025 8:00 AM CDT) WBC 8.86 4.00 - 10.80 x10'3/uL 01/15/2025 1:44 PM CDT [facility] RBC 3.66(L) 4.10 - 5.40 x10'6/uL 01/15/2025 1:44 PM CDT [facility] HGB 11.2(L) 12.0 - 16.0 G/DL 01/15/2025 1:44 PM CDT [facility] HCT 33.6(L) 36.0 - 47.0 % 01/15/2025 1:44 PM CDT [facility] MCV 91.8 78.0 - 100.0 FL 01/15/2025 1:44 PM CDT [facility] MCH 30.6 27.0 - 31.0 PG 01/15/2025 1:44 PM CDT [facility] MCHC 33.3 33.0 - 36.0 G/DL 01/15/2025 1:44 PM CDT [facility] RDW 15.5(H) 11.5 - 14.5 % 01/15/2025 1:44 PM CDT [facility] PLT 271 150 - 350 x10'3/uL 01/15/2025 1:44 PM CDT [facility] MPV 10.2 7.4 - 10.4 FL 01/15/2025 1:44 PM CDT [facility] 01/15/2025 8:00 AM CDT us Flavio Carty MD LABORATORY Final Result [facility] [address] [place] [address], from Last 3 Months Insurance MEDICAID DEPT OF [employer] [address] [place] [address]
--- OUTSIDE RECORDS SUMMARY | 2025-01-15 21:54 | XMS_ITS | Encounter Summary ---
Author Organization [facility] Address [address] [place] [address] Care Team Providers Care Embedded Nurse Name Role Phone Unavailable Primary Care Provider Unavailabl e Encounter Details Date Type Department Care Team (Late st Contact Info) Description 01/15/2025 1:36 PM CDT Hospital Encounter [facility] [address] [place] [address] Flavio Carty MD [facility] [place] [address] Social History Tobacco Use Types [...] on file documented as of this encounter Procedures Procedure Name Priority Date/Time Associated Diagnosis Comments CBC, AUTO, NO DIFF Routine 01/15/2025 8: 00 AM CDT ESRD (end stage renal disease) ([facility]) documented in this encounter Results * (ABNORMAL) CBC, AUTO, NO DIFF (01/15/2025 8:00 AM CDT) WBC 8.86 4.00 - 10.80 x10'3/uL 01/15/2025 1:44 PM CDT [facility] RBC 3.66(L) 4.10 - 5.40 x10'6/uL 01/15/2025 1:44 PM CDT [facility] HGB 11.2(L) 12.0 - 16.0 G/DL 01/15/2025 1:44 PM CDT [facility] HCT 33.6(L) 36.0 - 47.0 % 01/15/2025 1:44 PM CDT [facility] MCV 91.8 78.0 - 100.0 FL 01/15/2025 1:44 PM CDT [facility] MCH 30.6 27.0 - 31.0 PG 01/15/2025 1:44 PM CDT [facility] MCHC 33.3 33.0 - 36.0 G/DL 01/15/2025 1:44 PM CDT [facility] RDW 15.5(H) 11.5 - 14.5 % 01/15/2025 1:44 PM CDT [facility] PLT 271 150 - 350 x10'3/uL 01/15/2025 1:44 PM CDT [facility] MPV 10.2 7.4 - 10.4 FL 01/15/2025 1:44 PM CDT [facility] 01/15/2025 8:00 AM CDT Flavio Carty MD LABORATORY Final Result [facility] [address] [place] [address], documented in this encounter Visit Diagnoses Diagnosis ESRD (end stage renal disease) ([facility]) End stage renal disease documented in this encounter
--- OUTSIDE RECORDS SUMMARY | 2025-01-15 21:54 | XMS_ITS ---
Author Organization [facility] Address [facility] [place] [address] Care Team Providers Care Medicare Coordinator Name Role Phone Meggan Littlejohn MD Primary Care Provider Dialysis Access Sites Type Status Location Placement Date Removal Da te AV fistula Active Left Upper Arm - Anterior Procedures Procedure Name Priority Date/Time Associated Diagnosis Comments EGFR Routine 06/27/2022 6:53 AM LAND MANAGEMENT FORESTER HEPATITIS PANEL, ACUTE STAT 06/25/2022 9:29 AM LAND MANAGEMENT FORESTER from Last 3 Months or Most Recently [...] often do you attend chur ch or bahai services? Never 06/26/2022 Do you belong to any clubs o r organizations such as lutheran groups, unions, fraternal or athletic groups, or [...] place to sleep or slept in a fdc (including now)? No 06/26/2022 Personal Safety Answer Date Recorded Getting School Help Needed Denies 06/16 Comments Unknown Sex and Gender Information Value Date Recorded Sex Assigned at Not on file Legal Sex Female 5:36 PM LAND MANAGEMENT FORESTER Gender Identity Not on file Sexual Orientation Not on file Last Filed Vital Signs Vital Sign Reading Time Taken Comments Blood Pressure 155/53 06/27/2022 1:12 PM LAND MANAGEMENT FORESTER Pulse 86 06/27/2022 1:12 PM LAND MANAGEMENT FORESTER Temperature 36.8 C (98.2 F) 06/27/2022 1:12 PM LAND MANAGEMENT FORESTER Respiratory Rate 16 06/27/2022 1:12 PM LAND MANAGEMENT FORESTER Oxygen Saturation 95% 06/27/2022 1:12 PM LAND MANAGEMENT FORESTER Inhaled Oxygen Concentration - - Weight 103.3 kg (227 lb 12.8 oz) 06/27/2022 4:33 AM LAND MANAGEMENT FORESTER Height 162.6 cm (5' 4) 06/25/2022 12:1 5 AM LAND MANAGEMENT FORESTER Body Mass Index 39.1 06/25/2022 12:15 AM LAND MANAGEMENT FORESTER Results * eGFR (06/27/2022 6:53 AM LAND MANAGEMENT FORESTER) eGFR 6 mL/min/1. 73 m2 [facility] ([place]) Comment: Interpretive Data Reference Interval Normal >/= [...] last reviewed 2021. Blood 06/27/2022 6:53 AM LAND MANAGEMENT FORESTER 06/27/2022 7:23 AM LAND MANAGEMENT FORESTER us Juaquin Alonzo MD LAB BLOOD ORDERABLES Final Resul t [facility] ([place]) 1 [facility] Department [place] [address] * Hepatitis panel, acute (06/25/2022 9:29 AM LAND MANAGEMENT FORESTER) Hep A IgM Nonreactive Nonreactive [facility] ([place]) Comment: Interpretive Data: If Hep A IgM Ab is reported as Equivocal, a new sample should be drawn in two weeks for testing. Current interpretive data was last revised on 19. Testing performed by: [facility], [address] [place] [address]., [id number] Hep B core IgM Nonreactive Nonreactive [facility]id [facility] ANDA ([place]) Comment: Interpretive Data If HepB Core IgM Ab is reported as Equivocal, a new sample should be drawn in two weeks for testing. Current interpretive data was last revised on 19. Testing performed by: [facility], [address] [place] [address]., [id number] Hep C Ab Nonreactive Nonreactive IRIS DE [...] on 2019. Testing performed by: [facility], [address] [place] [address]., [id number] HepBsAg Nonreactive Nonreactive [facility] ([place]) Comment:Testing performed by : [address] [id number] Blood 06/25/2022 9:29 AM LAND MANAGEMENT FORESTER 06/25/2022 2:48 PM LAND MANAGEMENT FORESTER us Dimitris Owens MD LAB MICROBIOLOGY - GENERAL OR DERABLES Final Result [facility] ([place]) 1 [facility] Department of Accumetrics [place], [place] [address] from Last 3 Months or Most Recently Relevant to Health Maintenance
--- OUTSIDE RECORDS SUMMARY | 2025-01-15 21:54 | XMS_ITS | Clinical Summary ---
Author Organization [facility] Address [facility] [place] [address] Care Team Providers Care Infant And Toddler Teacher Name Role Phone Meggan Littlejohn MD Primary [...] How often do you attend chur or synagogue services? Never 06/26/2022 Do you belong to any clubs o r organizations such as voodoo groups, unions, fraternal or athletic groups, or [...] place to sleep or slept in a group home (including now)? No 06/26/2022 Personal Safety Answer Date Recorded Getting School Help Needed Denies 06/16 Comments Unknown Sex and Gender Information Value Date Recorded Sex Assigned at Not on file Legal Sex Female 5:36 PM SLEEP MANAGER Gender Identity Not on file Sexual Orientation Not on file Obstetrics History Last Filed Vital Signs Vital Sign Reading Time Taken Comments Blood Pressure 155/53 06/27/2022 1:12 PM SLEEP MANAGER Pulse 86 06/27/2022 1:12 PM SLEEP MANAGER Temperature 36.8 C (98.2 F) 06/27/2022 1:12 PM SLEEP MANAGER Respiratory Rate 16 06/27/2022 1:12 PM SLEEP MANAGER Oxygen Saturation 95% 06/27/2022 1:12 PM SLEEP MANAGER Inhaled Oxygen Concentration - - Weight 103.3 kg (227 lb 12.8 oz) 06/27/2022 4:33 AM SLEEP MANAGER Height 162.6 cm (5' 4) 06/25/2022 12:1 5 AM SLEEP MANAGER Body Mass Index 39.1 06/25/2022 12:15 AM SLEEP MANAGER Plan of Treatment Health Maintenance Due Date [...] Diagnosis Comments EGFR Routine 06/27/2022 6:53 AM SLEEP MANAGER HEPATITIS PANEL, ACUTE STAT 06/25/2022 9:29 AM SLEEP MANAGER from Last 3 Months or Most Recently Relevant to Health Maintenance Results * eGFR (06/27/2022 6:53 AM SLEEP MANAGER) eGFR 6 mL/min/1. 73 m2 IRIS DE [...] last reviewed 2021. Blood 06/27/2022 6:53 AM SLEEP MANAGER 06/27/2022 7:23 AM SLEEP MANAGER us Juaquin Alonzo MD LAB BLOOD ORDERABLES Final Resul t [facility] ([place]) 1 [facility] Department [place] [address] * Hepatitis panel, acute (06/25/2022 9:29 AM SLEEP MANAGER) Hep A IgM Nonreactive Nonreactive [facility] ([place]) Comment: Interpretive Data: If Hep A IgM Ab is reported as Equivocal, a new sample should be drawn in two weeks for testing. Current interpretive data was last revised on 19. Testing performed by: [facility], [address] [place] [address]., [id number] Hep B core IgM Nonreactive Nonreactive Leonid DE ANDA ([place]) Comment: Interpretive Data If HepB Core IgM Ab is reported as Equivocal, a new sample should be drawn in two weeks for testing. Current interpretive data was last revised on 19. Testing performed by: [facility], [address] [place] [address]., [id number] Hep C Ab Nonreactive Nonreactive IRIS DE [...] last revised on 2019. Testing performed by: [facility], [address] [place] [address]., [id number] HepBsAg Nonreactive Nonreactive [facility] ([place]) Comment:Testing performed by : [facility], [address] [place] [address]., [id number] Blood 06/25/2022 9:29 AM SLEEP MANAGER 06/25/2022 2:48 PM SLEEP MANAGER Dimitris Owens MD LAB MICROBIOLOGY - GENERAL OR DERABLES Final Result [facility] ([place]) 1 [facility] Department of Laboratories [place], [place] [id number] from Last 3 Months or Most Recently Relevant to Health Maintenance Insurance IDPA [facility] MEDICARE ADVANTAGE IDPA Advance Directives For more information, please contact: [phone] * Full Code (Latest Code Status on File) Date Activated Date Inactivated Comments 06/24/2022 11:13 PM 06/28/2022 12:08 AM Care Teams Infant And Toddler Teacher Relationship Specialty Start Date End Date Meggan Littlejohn MD [address] [place] [id number] PCP - General 01/01/17
--- OUTSIDE RECORDS SUMMARY | 2025-01-15 21:54 | XMS_ITS | Encounter Summary ---
Author Organization [facility] Health Address [address] [place] [address] Care Team Providers Care Resin Filterer Name Role Phone Meggan Littlejohn MD Primary Care Provider Gilles Morrison Primary Care Provider Griffin Velasquez Primary Care Provider [phone] Encounter Details Date Type Department Care Team (Late st Contact Info) Description 03/10/2018 [facility] Outpatient Visit [facility] [address] [place] [address] Bridger Friedman MD [address] [place] [phone] Social History Tobacco Use Types Packs/Day Years Used Date Smoking Tobacco: Never Smokeless Tobacco: Never Alcohol Use Standard Drinks/Week Comments No 0 (1 standard drink = 0.6 oz pur e alcohol) Comments Unknown Sex and Gender Information Value Date Recorded Sex Assigned at Not on file Legal Sex Female 6:17 AM INDUSTRIAL HYGIENIST Gender Identity Not on file Sexual Orientation Not on file documented as of this encounter Plan of Treatment Upcoming Encounters Date Type Department Care Team (Latest Contact Info) Description 01/21/2025 1:10 PM CDT Office Visit [facility] - Surgery [address] [facility], [address] [place] [phone] Kim Davalos, CORRECTIONAL SUPPLY SUPERVISOR-INVESTIGATIONS CHIEF [address] [facility] [address] [place] [address] 02/09/2025 2:15 PM CDT Hospital Encounter [facility] [address] [place] [phone] Aldo Knox MD [address] [place] [address] Surgery General 02/09/2025 2:15 PM CDT - 02/09/2025 3:00 PM CDT Surgery [facility] [address] [place] [phone] Aldo Knox MD [address] [place] [phone] COLONOSCOPY SCREEN--extended prep---dialysis pt--stat k+ 03/04/2025 1:45 PM CDT Appointment [facility] Vascular Services [address] [facility], [address] [place], [place] [phone] [place] [address] [facility] [address] [place] [address] Scheduled Procedures Name Priority Associated [...] documented as of this encounter Care Teams Resin Filterer Relationship Specialty Start [place] [address] [place] [phone] PCP - General Internal Medicine 03/10/18 07/14/18 Gilles Morrison, CORRECTIONAL SUPPLY SUPERVISOR-INVESTIGATIONS CHIEF [address] [place] [address] PCP - General Nurse Practitioner 07/15/18 12/19/24 Griffin Velasquez PA [address] [place] [address] PCP - General Physician Labor Gang Supervisor 12/20/24 documented as of this encounter
[2025-01-15 22:44] VITALS: BP 111/83; PULSE 93
[2025-01-15 22:45] VITALS: BP 121/60; BP 132/59; PULSE 75; PULSE 80
[2025-01-16 00:10] VITALS: BP 124/73; PULSE 59; RESP 18; TEMP 36.6; O2SAT 99
== END 2025-01-16 00:14 | disposition home or self-care (01) ==
PROVIDERS: Emergency Provider Student in an Organized Health Care Education/Training Program; PCP Physician Assistant
DX: R42 Dizziness and giddiness (principal); E11.22 Type 2 diabetes mellitus with diabetic chronic kidney disease; I12.0 Hypertensive chronic kidney disease with stage 5 chronic kidney disease or end stage renal disease; N18.6 End stage renal disease; Z99.2 Dependence on renal dialysis; Z79.85 Long-term (current) use of injectable non-insulin antidiabetic drugs; E78.5 Hyperlipidemia, unspecified; K21.9 Gastro-esophageal reflux disease without esophagitis; F17.200 Nicotine dependence, unspecified, uncomplicated
CPT/HCPCS: 36415; 71046; 80053; 83735; 84484; 85025; 93005; 96360; 99284; J7120

== ENCOUNTER 2025-03-12 10:39 | Outpatient (CLI) | payer MEDICARE, MEDICAID, SELFPAY ==
--- OUTSIDE RECORDS SUMMARY | 2025-03-12 10:46 | XMS_ITS | Clinical Summary ---
Author Organization [facility] Address [facility] [place] [address] Care Team Providers Care Fish Frog Or Oyster Farmer Name Role Phone Unavailable Primary Care Provider Unavailabl e Encounters Date Type Department Care Team Description 02/22/2025 8:21 AM CDT - 02/22/2025 11:59 PM CDT Hospital [place] [address] Flavio Carty MD Discharge Disposition: Home or Self Care (Routine Discharge) 02/22/[address] [place] [address] Flavio Carty MD 01/15/2025 1:36 PM CDT - 01/15/2025 11:59 PM CDT [place] [address] Flavio Carty MD Discharge Disposition: Home or Self Care (Routine Discharge) 01/15/[address] [place] [address] Flavio Carty MD from Last 3 Months [...] 2021 Dexa Scan (General) 2021 COVID-19 Vaccine (1 - 2023-2 5 season) 2025 Influenza Adult (#1) 2025 Meningococcal B Vaccine Aged Out No l onger eligible based on patient's age to complete this topic Meningococcal Vaccine Aged Out No zuleyka thea eligible based on patient's age to complete this topic RSV Immunizations Under 20 Months Aged Out No longer eligible based on patient's age to complete this topic Procedures Procedure Name Priority Date/Time Associated Diagnosis Comments TBGOLD-TUBERCULOSIS TST CELL MEDIATED IMMUNITY Routine 02/22/2025 6:45 AM CDT End stage renal disease ([facility]) CBC, AUTO, NO DIFF Routine 01/15/2025 8: 00 AM CDT ESRD (end stage renal disease) ([facility]) from Last 3 Months Results * QUANTIFERON TBGOLD TUBERCULOSIS TEST (02/22/2025 6:45 AM CDT) TB1 AG MINUS NIL 0.07 IU/ML 02/24/20 1:[address] [facility] TB2 AG MINUS NIL 0.06 IU/ML 02/24/20 1:[address] [facility] TB QUANTIFERON NEGATIVE NEGATIVE 02/23/2025 1:[address] [facility] TB INTERPRETATION M. tuberculosis infection unlikely but cannot be excluded especially when any illness is consistent with TB disease and/or likelihood of progression to disease is increased. In patients at high risk to M. tuberculosis infection, a second test should be considered. 02/23/2025 1:[address] [facility] 02/22/2025 6:45 AM CDT Flavio Carty MD LABORATORY Final Result [facility] [address] [place] [address], [id number] * (ABNORMAL) CBC, AUTO, NO DIFF (01/15/2025 8:00 AM CDT) WBC 8.86 4.00 - 10.80 x10'3/uL 01/15/2025 1:44 PM CDT [facility] RBC 3.66(L) 4.10 - 5.40 x10'6/uL 01/15/2025 1:44 PM CDT [facility] HGB 11.2(L) 12.0 - 16.0 G/DL 01/15/2025 1:44 PM CDT [facility] HCT 33.6(L) 36.0 - 47.0 % 01/15/2025 1:44 PM CDT [facility] MCV 91.8 78.0 - 100.0 FL 01/15/2025 1:44 PM CDT [facility] MCH 30.6 27.0 - 31.0 PG 01/15/2025 1:44 PM CDT [facility] MCHC 33.3 33.0 - 36.0 G/DL 01/15/2025 1:44 PM CDT [facility] RDW 15.5(H) 11.5 - 14.5 % 01/15/2025 1:44 PM CDT [facility] PLT 271 150 - 350 x10'3/uL 01/15/2025 1:44 PM CDT [facility] MPV 10.2 7.4 - 10.4 FL 01/15/2025 1:44 PM CDT [facility] 01/15/2025 8:00 AM CDT Flavio Carty MD LABORATORY Final Result [facility] [address] [place] [address], [place] [phone] from Last 3 Months Insurance MEDICAID [facility] GENERIC [place] [address] GENERIC - COMMERCIAL
--- OUTSIDE RECORDS SUMMARY | 2025-03-12 10:46 | XMS_ITS | Encounter Summary ---
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 Gender Identity Not on file Sexual Orientation Not on file documented as of this encounter Plan of Treatment Upcoming Encounters Date Type Department Care Team (Late Contact Info) Description 03/15/2025 3:15 PM CDT Appointment [facility] Vascular Services [address] [place] [address], [address] [address] [place] [address] [facility] [address] [place] [address] [place] [address] [address] [facility] [address] [place] [address] [place] [address] [facility] [address] [place] [address] 2025 10:00 AM CDT Appointment [facility] . Wound Care [address] [facility] , [address] [phone] [place] [address] [address] [address] 03/30/2025 1:00 PM CDT Office Visit [facility] [facility], [place] [address] documented as of this encounter Visit Diagnoses Not on filedocumented in this encounter Care Teams Rn Nicu Relationship Specialty Start Date End Date Griffin Velasquez PA [address] [place] [address] PCP - General Physician Shield Operator 12/20/24 documented as of this encounter
--- OUTSIDE RECORDS SUMMARY | 2025-03-12 10:46 | XMS_ITS | Clinical Summary ---
Author Organization [facility] Address [address] [place] [address] Care Team Providers Care Mainframe Systems Administrator Name Role Phone Griffin Velasquez Primary Care Provider [phone] Source Comments [facility],non-owned Affiliates and Associated Physician Practices is amultiple site organization consisting of ambulatory clinics and hospital sitesin [place], [place], [place] and [place]. This disclosure is being madepursuant to the Care Everywhere program and may not contain all information available regarding this patient. Last updated 18.[facility] Allergies Active Allergy Reactions Criticality Noted Date Comments Captopril-Hydrochlorothiazide Urticaria,Itching Medium Hydrochlorothiazide Rash,Itching Medium 03/10/2018 Medications * Be aware that medications may not be up to date on this document. Alwaysverify current medications with the patient. One Touch Delica Lancets Activ e blood glucose test strip TEST TWICE DAILY Ac tive Blood Glucose Monitoring Suppl (ONE TOUCH ULTRA 2) W/DEVICE KIT Active sevelamer carbonate (RENVELA) 800 MG Take 1 (one) tablet by mouth 3 times daily with meals Take 2 with meals Active TRULICITY 1.5 MG/0.5ML injection Inject 1.5 mg subcutaneously once daily Saturday 0 Active atorvastatin (Lipitor) 40 MG tablet Take 1 (one) tablet by mouth at bedtime Active Glucagon, rDNA, (Glucagon Emergency) 1 MG KIT 3 Active aspirin EC (Aspirin Low Dose) 81 MG tablet Take 1 (one) tablet by mouth once daily Active omeprazole (PriLOSEC) 20 MG capsule Take 1 (one) capsule by mouth daily before breakfast Active NIFEdipine CR 24hr (Adalat CC) 30 MG tablet Take 1 (one) tablet by mouth once daily Take on an empty stomach. Active HYDROcodone-ac etaminophen (Savannah) 5-325 MG tabletIndicati ons:ESRD (end stage renal disease) ([facility]) Take 1 (one) tablet by mouth every 6 hours as needed for Pain 30 tablet 01/05/2025 4:13 PM CDT 5 Active polyethylene glycol 3350 (Miralax) 17 GM/SCOOP powder starting a week before your colonoscopy, take a dose of Miralax twice a day 238 g 5 Active bisacodyl EC (Dulcolax) 5 MG tablet Take 4 tablets orally at noon 2 days before your colonoscopy. Take 4 tablets orally at noon the day before your colonoscopy 8 tablet 5 Active polyethylene glycol (Golytely) solution Drink half of prep solution at 5pm the night before colonoscopy. Finish the prep at 4am the day of test. 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 ESRD (end stage renal disease) 04/10/2018 Inadequate flow of hemodialysis AV fistula Encounters Date Type Department Care Team Description 03/09/2025 Telephone [facility] [address] [place] [phone] Maryanne Summers RN Kidney Transplant Evaluation (Health history ) 03/04/2025 Telephone [facility] [address] [place] [phone] Maryanne Summers, SERGIO Kidney Transplant Evaluation 02/24/2025 Travel 02/23/2025 Telephone [facility] [address] [place] [phone] Maryanne Summers, SERGIO Kidney Transplant Evaluation 02/11/2025 Results Follow-Up [facility] [address] [place] [address] Aldo Knox MD 02/09/2025 2:36 PM CDT Anesthesia Event [facility] [address] [place] [phone] Rob Downs DO Kirkpatrick, Holly E, CHIEF CONTROLLER-ELECTRONIC ENGRAVER 02/09/2025 2:15 PM CDT - 02/09/2025 3:00 PM CDT Surgery [facility] [address] [place] [phone] Aldo Knox MD COLONOSCOPY SCREEN--extended prep---dialysis pt--stat k+ 02/09/2025 12:55 PM CDT - 02/09/2025 4:12 PM CDT Hospital Encounter [facility] [address] [place] [phone] Aldo Knox MD Surgery General Discharge Disposition: Home or Self Care 02/09/2025 Telephone [facility] [address] [place] [phone] Melissa Mercado RN Kidney Transplant Evaluation 02/09/2025 Travel 01/29/2025 Telephone [facility] [address] [place] [phone] Agatha Mercado RN Pre-op Instructions 01/29/2025 Telephone [facility] [address] [place] [phone] Agatha Mercado RN Pre-op Instructions 01/28/2025 10:40 AM CDT Office Visit [facility] - Surgery [address] [place] [address], [address] [place] [address] Kim Davalos, CHIEF CONTROLLER-TRENCH DIGGING MACHINE OPERATOR Postop check (Primary Dx) 01/28/2025 Travel 01/25/2025 Patient Outreach [facility] [address] [place] [phone] Angela Rees RN 01/21/2025 1:10 PM CDT Office Visit [facility] Surgery [address] [place] [address], [address] [place] [address] Kim Davalos, CHIEF CONTROLLER-TRENCH DIGGING MACHINE OPERATOR Postop check (Primary Dx) 01/21/2025 Travel 01/07/2025 1:50 PM CDT Office Visit [facility] - Surgery [address] [facility], [address] [place] [address] Kim Davalos, CHIEF CONTROLLER-TRENCH DIGGING MACHINE OPERATOR Postop check (Primary Dx) 01/07/2025 Travel 01/05/2025 12:05 PM CDT - 01/05/2025 1:28 PM CDT Surgery [facility] - Perioperative Surgery [address] [place] [address] Bridger Friedman MD LEFT ARM PSEUDOANEURYSM RESECTION AND ACCUSEAL GRAFT PLACEMENT 01/05/2025 11:33 AM CDT Anesthesia Event [facility] Perioperative Surgery [address] [place] [address] Vanda Rodriges DO Han, Jason A, MD 01/05/2025 10:00 AM CDT - 01/05/2025 4:25 PM CDT Hospital Encounter [facility] Perioperative Surgery [address] [place] [address] Bridger Friedman MD Surgery General Discharge Disposition: Home or Self Care 01/05/2025 Travel 01/01/2025 Travel from Last 3 Months Family History Medical History Relation Name Comments Cancer - Lung Brother 1 Diabetes - Type 2 Brother 1 Diabetes - Type 2 Brother 2 CAD (Coronary Artery Disease) Father COPD - Chronic Obstructive Pulmonary Disease Father CVA Father Diabetes - Type 2 Father Renal Disease Maternal Aunt on dialysis Cancer - Breast Mother Renal Disease Paternal Uncle 1 on dialysi s Renal Disease Paternal Uncle 2 on dialysi s Relation Name Status Comments Brother 1 Brother 2 Alive Daughter 1 Alive Daughter 2 Alive Daughter 3 Alive Father Maternal Aunt Mother Paternal Uncle 1 Other Paternal Uncle 2 Social History Tobacco Use Types Packs/Day Years Used Date Smoking Tobacco: Former Cigarettes 3 15 1 06/17/1974 - 04/17/1990 Smokeless Tobacco: Never Tobacco Cessation:Counseling Given: Not Answered Alcohol Use Standard Drinks/Week Comments No 0 (1 standard drink = 0.6 oz pur e alcohol) AUDIT-C Answer Date Recorded Q1: How often do you have a drink containing alcohol? Never 02/09/2025 Q2: How many drinks containi ng alcohol do you have on a typical day when you are drinking? Patient does not drink Q3: How often do you have si x or more drinks on one occasion? 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 Gender Identity Not on file Sexual Orientation Not on file Last Filed Vital Signs Vital Sign Reading Time Taken Comments Blood Pressure 148/69 02/09/2025 3:45 PM CDT Pulse 73 02/09/2025 3:45 PM CDT Temperature 36.2 C (97.1 F) 02/09/2025 3:15 PM CDT Respiratory Rate 10 02/09/2025 3:45 PM CDT Oxygen Saturation 100% 02/09/2025 3:45 PM CDT Inhaled Oxygen Concentration - - Weight 83.2 kg (183 lb 8 oz) 02/09/2025 1:29 PM CDT Height 170.2 cm (5' 7) 02/09/2025 1:29 PM CDT Body Mass Index 28.74 02/09/2025 1:29 PM CDT Plan of Treatment Upcoming Encounters Date Type Department Care Team (Late st Contact Info) Description 03/15/2025 3:15 PM CDT Appointment [facility] Vascular Services [address] [place] [address], [facility] [address] [place] [address] Jose Magaña MD [address] [place] [address] [address] [place] [address] Jitendra Cazares MD [address] [place], [place] [address] [address] [place] [address] Eulogio De Leon MD [facility] Jeremy [facility] [address] [place] [address] 2025 10:00 AM CDT Appointment [facility] . Wound Care [address] [place], [place] [address]torie Mclain, Oni [address] [place] [address] [place] [address] [address] [place] [address] 03/30/2025 1:00 PM CDT Office Visit [facility] LEANA AMINAH CSM [address] [facility], [facility] [place] [address] Health Maintenance Due Date Last Done Comments BONE DENSITY TESTING 1955 COLOGUARD (AGES 45-75) - COLON CA SCREENING 1955 CT COLONOGRAPHY - COLON CA SCREENING 1955 FIT - COLON CA SCREENING 1955 [...] - Risk 60-74 years 1-dose series) 2016 DEPRESSION SCREENING 06/10/2024 MEDICARE AWV CALENDAR YEAR 2024 COVID-19 VACCINE ( season) 2025 INFLUENZA VACCINE (#1) 2025 3, 04/11/2022, 03/12/2022, Additional history exists SCREENING FOR DIABETES 02/10/2028 5, 01/05/2025, 04/12/2022, Additional history exists COLON MONITORING 02/09/2035 02/09/2025, 02/09/2025 COLONOSCOPY - COLON CA SCREENING 02/09/2035 02/09/2025, 02/09/2025 Colorectal Cancer Screening 02/09/2035 HEPATITIS C SCREENING Completed 06/25/2022 , 04/12/2022, [...] this topic Medical Devices Implanted Type Area Information Technology Project Manager Device Identifier Shelf Expiration Date Model / Serial / Lot Graft Vasc 4-7mm 45cm [employer] Acuse[employer] Tpr - [id number] Implanted:Qty: 1 on 01/05/2025 by Bridger Friedman MD at [facility] Left: Arm [employer] 06/11/2027 [id number] / [id number] / N/A Procedures Procedure Name Priority Date/Time Associated Diagnosis Comments PATHOLOGY TISSUE Routine 02/09/2025 2:53 PM CDT Screen for colon cancer Pre-transplant evaluation for kidney transplant AK COLOREC CANC SCRN,SCOPY NOT HI RISK 02/09/2025 2:31 PM CDT Screen for colon cancer Pre-transplant evaluation for kidney transplant ENDOSCOPY, COLON, SCREENING Routine 02/09/2025 2:29 PM CDT GLUCOSE - POINT OF CARE Routine 02/09/2025 1:47 PM CDT POTASSIUM WHOLE BLD STAT 02/09/2025 1 :46 PM CDT ESRD (end stage renal disease) (HCC) AK REPR DFCT ART AXILLO-BRACH 01/05/2025 11:36 AM CDT BASIC METABOLIC PANEL (CALCIUM TOTAL) STAT 01/05/2025 10:21 AM CDT Pre-op evaluation HEPATITIS C ANTIBODY STAT 04/12/2022 2:09 PM CDT from Last 3 Months or Most Recently Relevant to Health Maintenance Results * PATHOLOGY TISSUE (02/09/2025 2:53 PM CDT) Case Report Surgical Pathology Report Case: [id number] Authorizing Provider: Aldo Knox MD Collected: 02/09/2025 02:53 PM Ordering Location: [facility] Received: 02/09/2025 03:21 PM Pathologist: Zoie Glass MD Specimen: Polyp Descending, descending colon polyp x1 02/10/2025 10:57 AM CDT [facility]Y LAB Final Diagnosis Colon, descending, polyp x 1, biopsy (A) - Hyperplastic polyp 02/10/2025 10:57 AM CDT [facility] PATHOLOGY LAB at 1056 CDT Microscopic Description and Comment Microscopic examination substantiates the final diagnosis. 02/10/2025 10:57 AM CDT [facility] Clinical History 69-year-old patient with descending colon polyp 02/10/2025 10:57 AM CDT [facility] PATHOLOGY LAB Gross Description The requisition and specimen(s) are identified with the patient's name Zuleyka Tinoco. Received in formalin, specimen A, are 3 pink-luevano tissues, 0.6-0.9 cm in greatest dimension and 1.6 x 0.4 x 0.2 cm in aggregate, submitted in toto in cassette A1. DF 02/10/2025 10:57 AM CDT [facility] Pathologist Location at [facility] 02/10/2025 10:57 AM CDT [facility] PATHOLOGY LAB Disclaimer The performance characteristics of all immunohistochemical and indirect immunofluorescence stains (if any) cited in this report were determined by the Histopathology Laboratory of [facility]. Some of these tests were developed by our own laboratory and have not been cleared or approved by the US Food and Drug Administration. The FDA does not require this test to go through premarket FDA review. These tests are used for clinical purposes. They should not be regarded as investigational or for research. This laboratory is certified under the Clinical Laboratory Improvement Amendments (CLIA) as qualified to perform high complexity clinical laboratory testing. This case has been personally reviewed and interpreted by the attending (teaching) pathologist. 02/10/2025 10:57 AM CDT [facility] PATHOLOGY LAB Embedded Images 02/10/2025 10:57 AM CDT [facility] PATH[facility] LAB Biopsy, NOS POLYP / Unknown 02/09/2025 2 :53 PM CDT 02/09/2025 3:21 PM CDT us Tarek Nammour MD LAB - PATHOLOGY/CYTOLOGY GRISEL GARCIA Final Result [facility] [address] [place] [id number], [facility] [phone] * ENDOSCOPY, COLON, SCREENING (02/09/2025 2:29 PM CDT) Report Endoscopy POC Endoscopy Department Report _ Patient Name: Zuleyka Tinoco Procedure Date: 02/09/2025 2:29 PM Date of : 1955 Classification: Outpatient Gender: Female Ethnicity: or Race: White _ Providers: Aldo Knox MD, Albin Glover (Fellow) Referring MD: Griffin Velasquez PA Procedure: Colonoscopy Indications: Screening for colorectal malignant neoplasm Medications: Monitored Anesthesia Care Description of Procedure: Pre-Anesthesia Assessment: - Prior to the procedure, a History and Physical was performed, and patient medications and allergies were reviewed. The patient's tolerance of previous anesthesia was also reviewed. The risks and benefits of the procedure and the sedation options and risks were discussed with the patient. All questions were answered, and informed consent was obtained. Prior Anticoagulants: The patient has taken no anticoagulant or antiplatelet agents. ASA Grade Assessment: III - A patient with severe systemic disease. After reviewing the risks and benefits, the patient was deemed in satisfactory condition to undergo the procedure. After I obtained informed consent, the scope was passed under direct vision. Throughout the procedure, the patient's blood pressure, pulse, and oxygen saturations were monitored continuously. The Colonoscope was introduced through the anus and advanced to the cecum, identified by appendiceal orifice and ileocecal valve. The colonoscopy was performed without difficulty. The patient tolerated the procedure well. The quality of the bowel preparation was good. The ileocecal valve, appendiceal orifice, and rectum were photographed. Findings: A 3 mm polyp was found in the ascending colon. The polyp was sessile. The polyp was removed with a cold snare. Resection and retrieval were complete. There was a small lipoma, 10 mm in diameter, in the ascending colon. The exam was otherwise without abnormality on direct and retroflexion views. Estimated Blood Loss: Estimated blood loss: none. Complications: No immediate complications. Impression: - One 3 mm polyp in the ascending colon, removed with a cold snare. Resected and retrieved. - Small lipoma in the ascending colon. - The examination was otherwise normal on direct and retroflexion views. Recommendation: - Discharge patient to home. - Resume previous diet. - Continue present medications. - Await pathology results. - Repeat colonoscopy in 7 years for surveillance. - Patient has a contact number available for emergencies. The signs and symptoms of potential delayed complications were discussed with the patient. Return to normal activities tomorrow. Written discharge instructions were provided to the patient. Attending Participation: I was present and participated during the entire procedure, including non-bush portions. Procedure Code(s): --- Professional --- 34552, Colonoscopy, flexible; with removal of tumor(s), polyp(s), or other lesion(s) by snare technique Diagnosis Code(s): --- Professional --- Z12.11, Encounter for screening for malignant neoplasm of colon D12.2, Benign neoplasm of ascending colon D17.5, Benign lipomatous neoplasm of intra-abdominal organs CPT copyright 2021 [employer]. All rights reserved. The codes documented in this report are preliminary and upon hadoop application developer review may be revised to meet current compliance requirements. Aldo Knox MD 02/09/2025 3:03:12 PM This report has been signed electronically. Note Initiated On: 02/09/2025 2:29 PM Number of Addenda: [address] PROVATION 02/09/2025 2:29 PM CDT us Aldo Knox MD GI PROCEDURE ORDERABLES Edited Result - Final Performing Organization Address City/[facility]/ZIP Co de Phone Number [facility] * GLUCOSE - POINT OF CARE (02/09/2025 1:47 PM CDT) Glucose WB/POC 78 70 - 99 mg/dL 02/09/2025 1:48 PM CDT [facility] Specimen Type Venous 02/09/2025 1:48 PM CDT [facility] Blood BLOOD SPECIMEN / Unknown 02/09/2025 1:47 PM CDT 02/09/2025 1:47 PM CDT us Aldo Knox MD LAB - POINT OF CARE ORDERABLES Final Result Performing Organization Address [facility]/ZIP Co de Phone Number [address] [address], [place] [phone] * POTASSIUM WHOLE BLD (02/09/2025 1:46 PM CDT) Potassium Whole Blood 4.5 3.5 - 5.5 mmol/L 02/09/2025 1:56 PM CDT [facility] Blood WHOLE BLOOD SPECIMEN / Unknown Venipuncture / Unknown 02/09/2025 1:46 PM CDT 02/09/2025 1:48 PM CDT us Aldo Knox MD LAB - CHEMISTRY ORDERABLES Promise l Result Performing Organization Address City/[facility]/ZIP Co de Phone Number [address] [address], [place] [phone] * (ABNORMAL) BASIC METABOLIC PANEL (CALCIUM TOTAL) (01/05/2025 10:21 AM CDT) Glucose 87 70 - 99 mg/dL 01/05/2025 10:54 AM CDT [facility] Sodium 140 136 - 145 mmol/L 01/05/2025 10:54 AM CDT [facility] Potassium 4.7 3.5 - 5.1 mmol/L 01/05/2025 10:54 AM CDT [facility] Chloride 103 98 - 107 mmol/L 01/05/2025 10:54 AM CDT [facility] CO2 24 22 - 29 mmol/L 01/05/2025 10:54 AM CDT [facility] Calcium 9.8 8.4 - 10.4 mg/dL 01/05/2025 10:54 AM CDT [facility] Anion Gap 13 6 - 16 mmol/L 01/05/2025 10:54 AM CDT [facility] BUN 30(H) 7 - 26 mg/dL 01/05/2025 10:54 AM CDT [facility] Creatinine 6.23(H) 0.57 - 1.11 mg/dL 01/05/2025 10:54 AM CDT [facility] eGFR by CKD-EPI 7(L) >=90 mL/min/1.7 3 m2 01/05/2025 10:54 AM CDT [facility] Comment:Estimated Glomerular Filtration Rate (eGFR) calculated using the CKD-EPI Creatinine Equation (2020), per the National Kidney Foundation and [place] [employer] recommendations. Blood BLOOD SPECIMEN / Unknown Venipuncture / Unknown 01/05/2025 10:21 AM CDT 01/05/2025 10:38 AM CDT us Angela Goode MD LAB - CHEMISTRY ORDERABLE S Final Result [facility] [address] [place] [address] * HEPATITIS C ANTIBODY (04/12/2022 2:09 PM CDT) HCV Antibody Screen Non Reactive Non Reactive 04/12/2022 2:58 PM CDT [facility] Blood BLOOD SPECIMEN / Unknown Venipuncture / Unknown 04/12/2022 2:09 PM CDT 04/12/2022 2:19 PM CDT Narrative [facility] - 04/12/2022 2:58 PM CDT Non Reactive - Antibodies to Hepatitis C virus (HCV) were not detected, result does not exclude early acute HCV infection. Keikoguanakito Wellermichael Aguilar DO LAB - CHEMISTRY ORDERABLES Final Result [facility] [address] [place] [address] from Last 3 Months or Most Recently Relevant to Health Maintenance Insurance [facility] MANAGED MEDICARE [facility] [place] - [place] [facility] Care Teams Mainframe Systems Administrator Relationship Specialty Start Date End Date Griffin Velasquez PA [address] [place] [address] PCP - General Physician Product Support Technician 12/20/24
--- OUTSIDE RECORDS SUMMARY | 2025-03-12 10:46 | XMS_ITS | Encounter Summary ---
Author Organization [facility] Address [address] [place] [place] [address] Phone Care Team Providers Care Night Worker Name Role Phone Griffin Velasquez Primary Care Provider [phone] Encounter Details Date Type Department Care Team (Late st Contact Info) Description 08/07/2022 Nursing Facility [facility] [address] [place] [id number] Fabian Bahena, PAC [address] [place], [place] [id number] Social History Tobacco Use Types Packs/Day Years Used Date Smoking Tobacco: Never Assessed Comments Unknown Sex and Gender Information Value Date Recorded Sex Assigned at Not on file Legal Sex Female 10:31 AM IMMIGRATION GUARD Gender Identity Not on file Sexual Orientation Not on file documented as of this encounter Progress Notes * Fabian Bahena, PAC - 08/07/2022 3:27 PM CST [facility] PROGRESS NOTE Zuleyka Tinoco is a 67 y.o. female at [facility]. She was hospitalized at [facility] from 06/24 - 06/27 for pyelonephritis and persistent hypoglycemia and covid 19. Subjective: Interval History: I am seeing patient for routine monthly care home visit She is lying comfortably in her bed. Says that she is feeling ???fine?? . Has some diarrhea last night, none so far today. No abdominal pain, fevers or nausea or vomiting. Denies any other acute pain. Says she had blood sugar reading in the 60s recently. No other concerns at this time. Nursing staff has no concerns. Past medical hx: ESRD on HD HTN DM2 GERD Blindness Review of Systems: A 14 point comprehensive review of systems was negative except what is documented in interval history above. Objective: Exam: Vital Signs: B/P: 102/68 Pulse: 70 Respirations: 18 Temperature: 98.4 General: Well developed, well nourished, in no distress Skin: Normal appearance, normal turgor, no rashes HEENT: Normocephalic, atraumatic, no flaring Eyes: blind in B eyes Neck: normal, supple, no lymphadenopathy Heart: regular rate and rhythm, S1, S2 normal, no murmur, click, rub or gallop Lungs: clear to ausculation, normal respirations, normal precautions Abdominal: soft, non-tender; bowel sounds normal; no masses, no organomegaly Extremities: no deformities, joint mobility appears intact, no clubbing - AV fistula in L UE with bruit and thrill. Neuro: Non-focal, CN intact, sensory and motor intact Psychological: alert and oriented X3, appropriate mood and affect, Intact judgement and memory Lab Results: none Imaging: none Assessment/Plan: 1. Hypoglycemia and underlying T2DM. The patient has not been taking any diabetic medication as shehad them recently discontinued prior to arriving at the hospital. She had persistently low glucose levels during hospital course and received glucagon, D10 bolus, and D5 1/2 NS. Etiology unclear possibly in the setting of COVID vs suspected pyelonephritis. Monitor blood glucose closely. 07/03 - On trulicity only now. Monitor accuchecks closely. Blood sugars in 100's and 200's recently. 07/06: stable 08/07: Blood sugars overall have been reassuring. A few elevations but overall well controlled. Continue to monitor. 2. UTI. CT abd/pelvis revealed perinephric stranding consistent with possible pyelonephritis and UAindicated UTI. Antibiotic treatment course with IV Rocephin in hospital and on cefdinir until 07/04.07/06 - Resolved. 3. ESRD on hemodialysis. Continue MWF schedule. Received nephrology consult while at the hospital and no changes were made to treatment regimen. Continue Renvela. 4. COVID-19. Continue isolation precautions and supportive care at the SNF. The patient's only symptom is a cough which is being managed with Tessalon. Increased oral hydration has been encouraged. 07/06: improving 08/07: Resolved 5. HTN. BP stable. Continue Coreg and nifedipine. Monitor vital signs while at the SNF. 6. GERD. No acute symptoms. Continue PPI therapy with Protonix. 7. Anemia. Iron deficiency and secondary to chronic kidney disease. Stable at 9.9. Monitor CBC periodically and advise transfusion if Hgb drops below 7.0. Continue ferrous sulfate. 8. Generalized weakness and decreased mobilization. The patient is legally blind and is to receive long-term skilled care at the facility. Has intentionally lost 150 lbs of the last few years. VTE Prophylaxis: activity I discussed advanced care planning with this patient. Disposition: 07/06 : completing skilled therapy today and is staying for LTC. This note was dictated using [employer] fluency dictation system and there may be errors in special education director. Despite proof reading the note, there may be mistakes and I apologize for those. By: CAMILA Peng, GRATION GUARD documented in this encounter Plan of Treatment Upcoming Encounters Date Type Department Care Team (Late st Contact Info) Description 08/26/2025 9:30 AM CDT Office Visit [facility] - [facility]rology [facility] [address] [place] [address] Lj Dyer MD [address] [place] [address] documented as of this encounter Visit Diagnoses Not on filedocumented in this encounter Care Teams Night Worker Relationship Specialty Start Date End Date Griffin Velasquez PAC [address] [place] [address] PCP - General Physician Operating Engineer Apprentice 02/25/25 documented as of this encounter
--- OUTSIDE RECORDS SUMMARY | 2025-03-12 10:46 | XMS_ITS | Encounter Summary ---
Author Organization [facility] Address [address] [facility] [place] [address] Phone Care Team Providers Care Electronic Pagination System Operator Name Role Phone Griffin Velasquez Primary Care Provider [phone] Encounter Details Date Type Department Care Team (Late st Contact Info) Description 09/06/2022 Nursing Facility [facility] [address] [place] [phone] Fabian Bahena PAC [address] [place], [place] [id number] Social History Tobacco Use Types Packs/Day Years Used Date Smoking Tobacco: Never Assessed Comments Unknown Sex and Gender Information Value Date Recorded Sex Assigned at Not on file Legal Sex Female 10:31 AM BIOMETRIC FINGERPRINTING TECHNICIAN Gender Identity Not on file Sexual Orientation Not on file documented as of this encounter Progress Notes * Fabian Bahena PAC - 09/06/2022 2:02 PM CDT [facility] CUSTODIAL DISCHARGE SUMMARY Name: Zuleyka Tinoco Age: 67 y.o. : 1955 Attending Physician: No att. providers found Admission Date/Time: 06/28/2022 Expected Discharge Date: 09/07/2022 Primary Care Physician: No primary care provider on file. Discharging Provider: CAMILA Peng INSTRUCTIONS FOR PHYSICIANS ON FOLLOW UP AFTER DISCHARGE: Follow-up with PCP in 1-2 weeks. Follow-up with ict educator and remain compliant with dialysis sessions. Discharge Instructions: Discharge Condition: improved Disposition: Home Diet: Diabetic Diet and Renal Diet Activity: activity as tolerated Discharge Diagnoses: diabetes mellitus type 2, end-stage renal disease on hemodialysis, blindness, anemia, GERD Admitting Diagnoses: Hypoglycemia diabetes mellitus type 2, urinary tract infection, COVID-19, generalized weakness and deconditioning, end-stage renal disease on hemodialysis, blindness, anemia, GERD SKILLED CARE COURSE: Zuleyka Tinoco was admitted to half-way facility for acute care rehabilitation. She was hospitalized at [facility] from 06/24 - 06/27 for pyelonephritis and persistent hypoglycemia and covid 19. She completed her course of oral antibiotics shortly after arrival to the facility. Her COVID-19 symptoms were treated supportively and were mild and have completely resolved. After her body recovered from these infections it seems that her blood sugars stabilized. Her Trulicity was restarted which she has been on for several years. Her blood sugars were monitored very closely and she has not had any hypoglycemic episodes since recovering from these infections and blood sugars have been well controlled on current dose of Trulicity. While at the rehabilitation facility, the patient received nursing care and physical therapy rehabilitation. She also continued to do her hemodialysis. The patient has done well with their rehabilitation and has regained enough strength and ambulationthat it is felt that she can safely be discharged. She actually initiated the process and the discharge as she requested to go home earlier this week.She lives in apartment by herself but has family members close by. She has been blind for around 4 or 5 years and has also been on hemodialysis for around 4 or 5 years. She knows how to arrange transportation for her dialysis sessions. With these things in mind she is comfortable with discharge plan and she is requesting to be discharged. She is currently sitting on the edge of her bed. Says she feels ???good?? . Has no acute symptoms or concerns this time. We discussed in detail her plan for discharge she is confident that she is going to be fine. She has no cognitive barriers and has adapted to her physical limitations of her blindness and I feel that it is reasonable for her to be discharged back to her apartment. Exam Day of Discharge: Vital Signs: B/P: 136/77 Pulse: 74 Respirations: 18 Temperature: 97.5 General: Well developed, well nourished, in no distress Skin: Normal appearance, normal turgor, no rashes - large callus at the plantar aspect forefoot base of the great toe HEENT: Normocephalic, atraumatic, no flaring Eyes: blind [...] and affect, Intact judgement and memory Lab / Imaging Review: Lab Results: none Imaging: none DISCHARGE PLAN: Patient is planning on discharging tomorrow afternoon. She gets her hemodialysis sessions on Saturday, Saturday and Saturday mornings. She says that 1 of her daughters is going to come pick her up and help her get moved in tomorrow after completing her hemodialysis. Home health will be ordered for home nursing care and PT/OT. Understands to continue all current medications as directed and follow up with PCP in 1-2 weeks. Understands to follow-up with her ict educator and continue to be compliant with her hemodialysis. I have spent time coordinating care for this half-way facility discharge: Greater than 30 minutes spent in coordinating care This note was dictated using [employer] fluency dictation system and there may be errors in finger cobbler. Despite proof reading the note, there may be mistakes and I apologize for those. Signed: CAMILA Peng, 09/06/2022, 2:02 PM CDT documented in this encounter Plan of Treatment Upcoming Encounters Date Type Department Care Team (Late st Contact Info) Description 08/26/2025 9:30 AM CDT Office Visit [facility] - Neurology [facility] [address] [place] [address] Lj Dyer MD [address] [place] [address] documented as of this encounter Visit Diagnoses Not on filedocumented in this encounter Care Teams Electronic Pagination System Operator Relationship Specialty Start Date End Date Griffin Velasquez, [facility] [address] [place] [id number] PCP - General Physician Resolute Professional 02/25/25 documented as of this encounter
--- OUTSIDE RECORDS SUMMARY | 2025-03-12 10:46 | XMS_ITS | Encounter Summary ---
Author Organization [facility] Address [address] [facility] [place] [address] Phone Care Team Providers Care Licensed Journeyman Electrician Name Role Phone Griffni Velasquez Primary Care Provider [phone] Encounter Details Date Type Department Care Team (Late st Contact Info) Description 07/06/2022 Nursing Facility [facility] [address] [place] [phone] Fabian Bahena, PAC [address] [place] [address] Social History Tobacco Use Types Packs/Day Years Used Date Smoking Tobacco: Never Assessed Comments Unknown Sex and Gender Information Value Date Recorded Sex Assigned at Not on file Legal Sex Female 10:31 AM MANAGEMENT LECTURER Gender Identity Not on file Sexual Orientation Not on file documented as of this encounter Progress Notes * Fabian Bahena, CAMILA - 07/06/2022 3:06 PM CST [facility] PROGRESS NOTE Zuleyka Tinoco is a 67 y.o. female at [facility] for rehabilitation and[facility]. She was hospitalized at [facility] from 06/24 - 06/27 for pyelonephritis and persistent hypoglycemia and covid 19. Subjective: Interval History: She is sitting comfortably on the edge to the bed. Feeling better. Denies any pain or any GI sxs. No acute medical symptoms. Nursing staff has no concerns. Past medical hx: ESRD on HD HTN DM2 GERD Blindness Review of Systems: A 14 point comprehensive review of systems was negative except what is documented in interval history above. Objective: Exam: Vital Signs: B/P: 110/72 Pulse: 68 Respirations: 18 Temperature: 97.6 General: Well developed, well nourished, in no [...] in 100's and 200's recently. 07/06: stable 2. UTI. CT abd/pelvis revealed perinephric stranding [...] oral hydration has been encouraged. 07/06: improving 5. HTN. BP stable. Continue Coreg and [...] for LTC. This note was dictated using [employer] fluency dictation system and there may be errors in line out worker. Despite proof reading the note, there may be mistakes and I apologize for those. By: CAMILA Peng, GEMENT LECTURER documented in this encounter Plan of Treatment Upcoming Encounters Date Type Department Care Team (Late st Contact Info) Description 08/26/2025 9:30 AM CDT [facility] [address] [place] [address] Lj Dyer MD [address] [place] [address] documented as of this encounter Visit Diagnoses Not on filedocumented in this encounter Care Teams Licensed Journeyman Electrician Relationship Specialty Start Date End Date Griffin Velasquez, PAC [address] [place] [address] PCP - General Physician Systems Manager 02/25/25 documented as of this encounter
--- OUTSIDE RECORDS SUMMARY | 2025-03-12 10:46 | XMS_ITS | Encounter Summary ---
Author Organization [facility] Address [address] [facility] [place] [place] [address] Phone Care Team Providers Care Paleologist Name Role Phone Griffin Velasquez Primary Care Provider [phone] Encounter Details Date Type Department Care Team (Late st Contact Info) Description 08/30/2022 Nursing Facility [facility] [address] [place] [phone] Fabian Bahena, PAC [address] [place], [place] [id number] Social History Tobacco Use Types Packs/Day Years Used Date Smoking Tobacco: Never Assessed Comments Unknown Sex and Gender Information Value Date Recorded Sex Assigned at Not on file Legal Sex Female 10:31 AM INTELLIGENCE OPERATIONS SPECIALIST Gender Identity Not on file Sexual Orientation Not on file documented as of this encounter Progress Notes * Fabian Bahena, CAMILA - 08/30/2022 4:32 PM CDT [facility] PROGRESS NOTE Zuleyka Tinoco is a 67 y.o. female at [facility] She was hospitalized at [facility] from 06/24 - 06/27 for pyelonephritis and persistent hypoglycemia and covid 19. Subjective: Interval History: I am seeing patient for routine monthly halfway visit She is lying comfortably in her bed. She is well-appearing. Has quite a bit of complaints. Says she does not like the food here. Says that the dialysis bandage and take a is irritating her skin and she is requesting it be removed. Had dialysis yesterday. I removed the bandage today, placed orders and spoke with nursing staff that bandages from hemodialysis can be remove the morning after her sessions and placed this order inthe EMR. She is having diarrhea again this morning. Says this is a bit of a chronic issue for her intermittently. Says she has some greasy food last night for dinner things that irritated. She just took Imodium which typically helps. Says that she missed her Trulicity dose on Saturday. Nurse did confirm this Due to Trulicity not being in-house. Recommended that she get it now and changed administration dayto going forward. Says that she does not get her mealtime binders in a timely manner when coming back from dialysis and has to wait long time and her food gets cold. Spoke with nurse who finds this hard to believe as she typically follows the patient to her room when come back from dialysis with her medications. Blood sugars have been reassuring. Will discontinue the Accu-Cheks. Past medical hx: ESRD on HD HTN DM2 GERD Blindness Review of Systems: A 14 point comprehensive review of systems was negative except what is documented in interval history above. Objective: Exam: Vital Signs: B/P: 136/77 Pulse: 78 Respirations: 17 Temperature: 97.5 General: Well developed, well nourished, [...] but overall well controlled. Continue to monitor. 08/30/2022: Blood sugars continue to be reassuring with some elevations. No hypoglycemia. Will discontinue the Accu-Cheks and monitor A1c periodically. 2. UTI[address] abd/pelvis revealed perinephric stranding [...] system and there may be errors in combat control manager. Despite proof reading the note, there may be mistakes and I apologize for those. By: CAMILA Peng, documented in this encounter Plan of Treatment Upcoming Encounters Date Type Department Care Team (Late st Contact Info) Description 08/26/2025 9:30 AM CDT Office Visit [facility] - Neurology - [place] [address] [place] [address] Lj Dyer MD [address] [place] [address] documented as of this encounter Visit Diagnoses Not on filedocumented in this encounter Care Teams Paleologist Relationship Specialty Start Date End Date Griffin Velasquez PAC [address] [place] [address] PCP - General Physician Circular Stuffer 02/25/25 documented as of this encounter
--- OUTSIDE RECORDS SUMMARY | 2025-03-12 10:46 | XMS_ITS ---
Author Organization [facility] Address [address] [facility] [place] [address] Care Team Providers Care Fibrous Plasterer Name Role Phone Griffin Velasquez Primary Care Provider [phone] Transplant Episode Kidney Candidate [facility] ([place], [place]) - [facility] Evaluation began on 12/16/2024 Marked as Active on 12/16/2024 Kidney CoordinatorMelissa Mercado RN Phone: N/A Fax: N/A Email: N/A Scores Score Value Updated Exceptions/Reas ons CPRA Not available EPTS (Calc) 83 03/12/2025 [place] [facility] Organ Diagnosis Organ Primary Contributory Kidney Diabetes Mellitus - Type II Hype rtensive Nephrosclerosis Care Team Name Role Phone Fax Email Melissa Mercado RN Kidney Coordinator N/A N/A N/A aTra Hu District Sales Manager N/A N/A N/A Flavio Carty MD Referring Physician [phone] N/A Events Pre-Transplant Referred: 10/27/2024 Evaluation began: 12/16/2024 Dialysis History Dialysis History Start End Type Comments Center 03/04/2018 08/28/2024 [facility] 08/28/2024 In-center Hemodialysis [facility] Dialysis [facility] Information Center Phone Fax Address [facility] [phone] [address] [facility] [address] [facility] [phone] [address] [facility] [address]
--- OUTSIDE RECORDS SUMMARY | 2025-03-12 10:46 | XMS_ITS | Encounter Summary ---
Author Organization [facility] Address [address] [facility] [place] [address] Phone Care Team Providers Care Senior Clinical Research Scientist Name Role Phone Griffin Velasquez Primary Care Provider [phone] Encounter Details Date Type Department Care Team (Late st Contact Info) Description 07/03/2022 Nursing Facility [facility] [address] [place] [phone] Fabian Bahena, PAC [address] [place] [address] Social History Tobacco Use Types Packs/Day Years Used Date Smoking Tobacco: Never Assessed Comments Unknown Sex and Gender Information Value Date Recorded Sex Assigned at Not on file Legal Sex Female 10:31 AM RAILWAY SHUNTER Gender Identity Not on file Sexual Orientation Not on file documented as of this encounter Progress Notes * Fabian Bahena, CAMILA - 07/03/2022 11:59 PM CST [facility] PROGRESS NOTE Zuleyka Tinoco is a 67 y.o. female at [facility] and[facility]. She was hospitalized at [facility] from 06/24 - 06/27 for pyelonephritis and persistent hypoglycemia and covid 19. Subjective: Interval History: She is sitting comfortably on the edge to the bed. Feeling well. No acute medical symptoms. She has an appt with optho in 2 days, but is concerned that she may not be able to go because no family members will be able to accompany her. She wants to make sure she does not get hypoglycemic again. Has intentionally lost 150 lbs of the last few years. Past medical hx: ESRD on HD HTN DM2 GERD Blindness Review of Systems: A 14 point comprehensive review of systems was negative except what is documented in interval history above. Objective: Exam: Vital Signs: B/P: 80/48 Pulse: 80 Respirations: 20 Temperature: 97.8 General: Well developed, well nourished, in no [...] Blood sugars in 100's and 200's recently. 2. UTI. CT abd/pelvis revealed perinephric stranding consistent with possible pyelonephritis and UAindicated UTI. Antibiotic treatment course with IV Rocephin in hospital and on cefdinir until 07/04. 3. ESRD on hemodialysis. Continue MWF schedule. Received nephrology consult while at the hospital and no changes were made to treatment regimen. Continue Renvela. 4. COVID-19. Continue isolation precautions and supportive care at the SNF. The patient's only symptom is a cough which is being managed with Tessalon. Increased oral hydration has been encouraged. 5. HTN. BP stable. Continue Coreg and [...] receive long-term skilled care at the facility. VTE Prophylaxis: activity I discussed advanced care planning with this patient. This note was dictated using [employer] fluency dictation system and there may be errors in industrial education teacher. Despite proof reading the note, there may be mistakes and I apologize for those. By: CAMILA Peng, WAY SHUNTER documented in this encounter Plan of Treatment Upcoming Encounters Date Type Department Care Team (Late st Contact Info) Description 08/26/2025 9:30 AM CDT [facility] [address] [place] [address] Lj Dyer MD [address] [place] [address] documented as of this encounter Visit Diagnoses Not on filedocumented in this encounter Care Teams Senior Clinical Research Scientist Relationship Specialty Start Date End Date Griffin Vleasquez, PAC [address] [place] [address] PCP - General Physician Sugar Laboratory Assistant 02/25/25 documented as of this encounter
--- OUTSIDE RECORDS SUMMARY | 2025-03-12 10:46 | XMS_ITS | Encounter Summary ---
Author Organization [facility] Address [address] [place] [address] Care Team Providers Care Generator Assembler Name Role Phone Gilles Morrison COMPLIANCE COUNSEL-NEUROSURGEON Primary Care Provider Griffin Velasquez Primary Care Provider [phone] Encounter Details Date Type Department Care Team (Late Contact Info) Description 03/22/2023 Telephone [facility] . Wound Care [address] [facility] , [address] [address] Binh Messina, RN Social History [...] on file Legal Sex Female 6:17 AM ARCHIVES TECHNICIAN Gender Identity Not on file Sexual Orientation Not on file documented as of this encounter Plan of Treatment Upcoming Encounters Date Type Department Care Team (Late Contact Info) Description 03/15/2025 3:15 PM CDT Appointment [facility] Vascular Services [address] [facility], [address] [place] [address] [place] [address] [facility] [address] [place] [address] [place] [address] [facility] [address] [place] [address] [place] [address] [facility] [address] [place] [address] 2025 10:00 AM CDT Appointment [facility] . Wound Care [address] [facility] , [facility] [address] [place] [id number] [place] [address] [address] [facility] [address] [place] [address] 03/30/2025 1:00 PM CDT Office Visit [facility] [address]L [address] [facility], [place] [address] documented as of this encounter Visit Diagnoses Not on filedocumented in this encounter Care Teams Generator Assembler Relationship Specialty Start Date End Date Gilles Morrison, CYRIL-NEUROSURGEON [address] [place] [address] PCP - General Nurse Practitioner 07/15/18 12/19/24 Griffin Velasquez PA [address] [place] [address] PCP - General Physician Impregnating Machine Operator 12/20/24 documented as of this encounter
--- OUTSIDE RECORDS SUMMARY | 2025-03-12 10:46 | XMS_ITS | Encounter Summary ---
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 Answer Date of Assessment Author No 02/09/2025 3:18 PM CDT Rosy Baires ra, RN * Is person blind or have serious difficulty seeing? Answer Date of Assessment Author No 02/09/2025 3:18 PM CDT Rosy Baires ra, RN * Does person have serious difficulty walking/climbing stairs? Answer Date of Assessment Author No 02/09/2025 3:18 PM CDT Rosy Baires ra, RN * Does person have difficulty dressing/bathing? Answer Date of Assessment Author No 02/09/2025 3:18 PM CDT Rosy Baires ra, RN * Does person have difficulty doing errands alone? Answer Date of Assessment Author No 02/09/2025 3:18 PM CDT Rosy Baires ra, RN documented as of this encounter Mental Status * Does person have difficulty concentrating/remembering/making decisions? Answer Entry Date Author No 02/09/2025 3:18 PM CDT Rosy Baires ra, RN documented in this encounter Plan of Treatment Upcoming Encounters Date Type Department Care Team (Late st Contact Info) Description 03/15/2025 3:15 PM CDT Appointment [facility] Vascular Services [address] [facility], [address] [place] [id number] [place] [address] [facility] [address] [place] [address] Jitendra Cazares MD [address] [place], [place] [address] [address] [place] [address] [place] [address] [facility] [address] [place] [address] 2025 10:00 AM CDT Appointment [facility] . Wound Care [address] [address] [address] [place] [address] [address] [address] 03/30/2025 1:00 PM CDT Office Visit [facility] TXP AMIN[facility] CSM [address]L [address] [facility], [place] [address] documented as of this encounter Visit Diagnoses Not on filedocumented in this encounter Care Teams Cable Stretcher And Tester Relationship Specialty Start Date End Date Griffin Velasquez PA [address] [place] [address] PCP - General Physician C Web Developer 12/20/24 documented as of this encounter
--- OUTSIDE RECORDS SUMMARY | 2025-03-12 10:46 | XMS_ITS | Encounter Summary ---
Author Organization [facility] Health Address [address] [place] [address] Care Team Providers Care Spine Surgeon Name Role Phone Meggan Littlejohn MD Primary Care Provider Gilles Morrison Primary Care Provider Griffin Velasquez Primary Care Provider [phone] Encounter Details Date Type Department Care Team (Late st Contact Info) Description 03/10/2018 [facility] Outpatient Visit [facility] [address] [place] [address] [place] [address] [address] [facility] [address] [place] [address] Social History Tobacco Use Types Packs/Day Years Used Date Smoking Tobacco: Never Smokeless Tobacco: Never Alcohol Use Standard Drinks/Week Comments No 0 (1 standard drink = 0.6 oz pur e alcohol) Comments Unknown Sex and Gender Information Value Date Recorded Sex Assigned at Not on file 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 Gender Identity Not on file Sexual Orientation Not on file documented as of this encounter Plan of Treatment Upcoming Encounters Date Type Department Care Team (Late st Contact Info) Description 03/15/2025 3:15 PM CDT Appointment [facility] Health Vascular Services [address] [facility], [address] [place] [address] [place] [address] [address] [facility] [address] [place] [address] [place] C[place] [address] [address] [place] [address] [place] [address] [facility] [address] [place] [address] 2025 10:00 AM CDT Appointment [facility] . Wound Care [address] [address], [facility] [address] [place] [address] [place] [address] [address] [facility] [address] [place] [address] 03/30/2025 1:00 PM CDT Office Visit [facility] [address] [place] [address] documented as of this encounter Visit Diagnoses Not on filedocumented in this encounter Additional Health Concerns Infection Onset Date Last Indicated Resolved Time COVID-19 Under Investigation 04/12/2022 04/12/2022 04/12/2022 3:05 PM CDT documented as of this encounter Care Teams Spine Surgeon Relationship Specialty [place] [address] [place] [id number] PCP - General Internal Medicine 03/10/18 07/14/18 Gilles Morrison, LCPC-HOPPER FILLER [address] [place] [address] PCP - General Nurse Practitioner 07/15/18 12/19/24 Griffin Velasquez PA [address] [place] [address] PCP - General Physician Legal Aide 12/20/24 documented as of this encounter
--- OUTSIDE RECORDS SUMMARY | 2025-03-12 10:46 | XMS_ITS | Clinical Summary ---
Author Organization [facility] Address [address] [place] [address] Phone Care Team Providers Care Securities Clerk Name Role Phone Griffin Velasquez Primary Care Provider Medications atorvastatin (LIPITOR) 40 MG Tablet 02/17/2025 Active Trulicity 1.5 MG/0.5ML Solution Auto-injector 02/23/2025 Activ e NIFEdipine CR (PROCARDIA-XL) 30 MG TABLET SR 24 HR 01/24/2025 Active omeprazole (PriLOSEC) 20 MG CAPSULE DELAYED RELEASE 02/17/2025 Active aspirin EC 81 MG Tablet Delayed Response Take 81 mg by mouth daily. 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 Gender Identity Not on file Sexual Orientation Not on file Plan of Treatment Upcoming Encounters Date Type Department Care Team (Late st Contact Info) Description 08/26/2025 9:30 AM CDT [facility] [address] [place] [address] Lj Dyer MD [address] [place] [address] Health Maintenance Due Date Last Done Comments DEXA Bone Density 1955 Hepatitis C Virus (HCV) Screening 1955 Mammogram 1955 TdaP Immunization 1956 Cologuard 2001 Colonoscopy 2001 Colorectal Cancer Screening 2001 Immunochemical Fecal Occult Blood 2001 Pneumococcal Immunization (5 0+ years) (1 of 1 - PCV) 2006 Zoster Immunization (1 of 2) 2006 Respiratory Syncytial Virus (RSV) Immunization (Adult) (1 - Risk 60-74 years 1-dose series) 2016 Welcome to Medicare (IPPE) G0402 10/08/2024 Influenza Immunization (#1) 2025 SARS-COV-2 Immunization ( season) 2025 Hepatitis B Immunization Aged Out No longer eligible based on patient's age to complete this topic Human Papillomavirus (HPV) Immunization Aged Out No longer eligible b ased on patient's age to complete this topic Meningococcal Immunization (ACWY) Aged Out No longer eligible based on patient's age to complete this topic Rotavirus Immunization Aged Out No lo nger eligible based on patient's age to complete this topic Insurance MEDICARE C [employer] [place]ID [place] Care Teams Securities Clerk Relationship Specialty Start Date End Date Griffin Velasquez, [facility] [address] [place] [address] PCP - General Physician Retirement Administrator 02/25/25
--- OUTSIDE RECORDS SUMMARY | 2025-03-12 10:46 | XMS_ITS | Encounter Summary ---
Author Organization [facility] Address [address] [place] 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 female who has transferred to [facility] from [facility] for post-acute care and rehabilitation in addition to her long-term care at the facility. The patient is legally blind and has a PMHx of HTN, T2DM (recently stopped all medications), ESRD on HD, anemia, and GERD and was admitted to the hospital from 06/24/22 to 06/27/22 for persistent hypoglycemia. She was also found to have COVID-19 but did not have any related symptoms while at the hospital. A CT revealed suspected pyelonephritis and UA indicated UTI and the patient was treated with IV Rocephin. At the time of this assessment she stated that she was doing fine but felt fatiguedand worn out. History obtained from: patient, medical records Review of Prior External Notes: [facility] ED and inpatient records Allergies: capozide Past Medical History: HTN, T2DM, ESRD on dialysis, anemia, GERD Surgical History: No prior surgeries Social History: Former light smoker. Long-term care nursing facility resident. Physical Exam: Vital Signs: All vitals were reviewed in the facility EMR and are stable. Exam: General: Well developed, well nourished, in no distress Skin: Normal appearance, poor turgor, no rashes HEENT: Normocephalic, atraumatic, no flaring, poor dentition Eyes: legally blind Neck: normal, supple, no lymphadenopathy Heart: regular rate and rhythm, S1, S2 normal, 2/6 murmur MR Lungs: clear to ausculation, normal respirations, normal precautions, cough present Abdominal: soft, non-tender; bowel sounds normal; no masses, no organomegaly : external genitalia normal in appearance Extremities: severe onychomycosis and onychogryphosis, ulcer L great toe, plantar ulcer R foot, 2+ pitting edema BLE below the knees, fistula LUE Neuro: Non-focal, CN intact, sensory and motor intact Psychological: alert and oriented X3, appropriate mood and affect, Intact judgement and memory Data Review: Lab Results: Labs from recent hospitalization have been reviewed and are stable. Imaging: Recent imaging reviewed and there were no new findings. Labs Ordered: No new labs were ordered for this visit. A consult was placed with wound doctor to address the patient's foot ulcers. Medication Changes: None Assessment/Plan: 1. Hypoglycemia and underlying T2DM. The patient has not been taking any diabetic medication as shehad them recently discontinued prior to arriving at the hospital. She had persistently low glucose levels during hospital course and received glucagon, D10 bolus, and D5 1/2 NS. Etiology unclear possibly in the setting of COVID vs suspected pyelonephritis. Monitor blood glucose closely. 2. UTI. CT abd/pelvis revealed perinephric stranding consistent with possible pyelonephritis and UAindicated UTI. Antibiotic treatment course with IV Rocephin was completed during hospital course. 3. ESRD on hemodialysis. Continue MWF schedule. [...] skilled care at the facility. VTE Prophylaxis: Mobilization Disposition and escalation or reduction of care: The patient is receive post- acute care and complete PT and OT at the SNF to improve their strength, balance, and mobility back to baseline and will remain at the facility for long-term care. Barriers to Rehabilitation: legally blind, renal failure Advance Care Planning: Aggregate [id number] time, greater than 16 minutes was spent discussing end-of-life care planning with patient/family and/or Power of Vice President Biostatistics. Discussed CPR, Intubation, treatment goals, and Quality of life/Intensity of care. Patient desires CPR-Full Treatment Hadley Corona, acting as a scribe, am personally taking down the notes in the presence of Dr. Jann Daniels M.D. Take no action on this note until reviewed and authenticated by the physician. By: HADLEY WOODALL, 07/03/2022, 9:43 PM MOLD MAINTENANCE TECHNICIAN I evaluated and examined the patient in the presence of scribe Hadley Woodall and discussed the physical findings and clinical assessment with her and reviewed the medical records and notes above and agree with the content and details of the note. Jann Daniels MD 06/29/2022 MAINTENANCE TECHNICIAN MAINTENANCE TECHNICIAN MAINTENANCE TECHNICIAN documented in this encounter Plan of Treatment Upcoming Encounters Date Type Department Care Team (Late st Contact Info) Description 08/26/2025 9:30 AM CDT Office Visit [facility] - [facility] [address] [place] [address] Lj Dyer MD [address] [place] [address] documented as of this encounter Visit Diagnoses Not on filedocumented in this encounter Care Teams Shingle Trimmer Relationship Specialty Start Date End Date Griffin Velasquez PAC [address] [place] [id number] PCP - General Physician Celebrity Chef Entrepreneur Media Personality 02/25/25 documented as of this encounter
[2025-03-12 11:02] LABS: Hematocrit 29.0 % (35.0-42.0); Hemoglobin 9.2 g/dL (11.7-13.8); Mean Corpuscular HGB Conc 31.7 g/dL (32-36); Mean Corpuscular Hemoglobin 30.0 pg (27.0-31.0); Mean Corpuscular Volume 94.5 fL (78.0-102.0); Platelet Count Result 460 K/mm3 (150-420); Red Blood Count 3.07 M/mm3 (4.20-5.40); White Blood Count 10.8 K/mm3 (4.8-10.8)
[2025-03-12 11:19] LABS: Iron 43 ug/dL (37-170)
[2025-03-12 11:23] LABS: Alanine Aminotransferase 10 U/L (6-35); Albumin Level 3.6 g/dL (3.5-5.1); Alkaline Phosphatase 78 U/L (38-126); Anion Gap 12 mmol/L (4-12); Aspartate Amino Transferase 21 U/L (14-36); Bilirubin,Total 0.6 mg/dL (0.2-1.3); Blood Urea Nitrogen 20 mg/dL (7-17); CRP 4.1 mg/dL (<1.0); Calcium 9.7 mg/dL (8.4-10.2); Carbon Dioxide 32 mmol/L (22-30); Chloride 98 mmol/L (98-107); Estimated Glomerular Filt Rate 10; Glucose 125 mg/dL (65-110); Osmolality Calculated 297 mOsm/kg (285-295); Potassium 3.9 mmol/L (3.4-5.0); Sodium 142 mmol/L (137-145); Total Protein 8.6 g/dL (6.3-8.2)
[2025-03-12 11:29] LABS: Percent Iron Saturation 25 % (20-50)
[2025-03-12 12:03] LABS: Ferritin > 1000.00 ng/mL (11.1-264)
[2025-03-12 12:26] LABS: Vitamin B12 550.0 pg/mL (239-931)
== END 2025-03-12 10:40 | disposition home or self-care (01) ==
LOC: CHSLAB 10:41
PROVIDERS: PCP Physician Assistant; Visit Provider Nurse Practitioner Family
DX: K92.1 Melena (principal); D64.9 Anemia, unspecified
CPT/HCPCS: 36415; 80053; 82607; 82728; 82746; 83540; 83550; 85027; 86140

== ENCOUNTER 2025-04-02 15:52 | Emergency (ER) | payer MEDICARE, MEDICAID, SELFPAY ==
--- NOTE | ~2025-04-02 | XR_ITS ---
EXAMINATION: XR chest 1V portable COMPARISON: No comparisons available. HISTORY: chest pain/sob x2 days FINDINGS: Mild pulmonary venous congestion. No pneumothorax. Mild cardiomegaly. Mediastinal and hilar contours are within normal limits. Bony thorax no acute abnormality. Miscellaneous: None Impression: Mild CHF Reviewed, dictated and finalized at location P. Impression: Mild CHF
[2025-04-02 15:52] VITALS: BP 163/59; PULSE 98; RESP 20; TEMP 36.7; O2SAT 100
--- NOTE | 2025-04-02 15:54 | ED.CHESTPAIN ---
HPI - Chest Pain General Chief Complaint: Chest Pain Stated Complaint: chest pain Source: patient and family Mode of arrival: ambulatory Limitations: no limitations History of Present Illness HPI narrative: 70 years old white female came to the ED with her family from home complaining of chest pain and back pain while trying to get from bed last night. Patient reported it took her 20 minutes to set up from a laying down position because of pain. Patient reports pain only with movement and certain position, patient denied any pain as long as does not move. Patient denies any fever, chills, nausea, vomiting, shortness of breath. History of diabetes, hyperlipidemia, restless leg syndrome, chronic renal failure on dialysis, left upper extremity AV fistula, chronic anemia hypertension congestive heart failure, chronic cerebral ischemia, legally blind, GERD, irritable bowel disease. Currently patient is asymptomatic as long as laying down in bed without any movement Patient had hemodialysis today Related Data Home Medications ?Medication ?Instructions ?Recorded ?Confirmed ?Last Taken ?Type dulaglutide 1.5 mg/0.5 mL 1.5 mg subcut WEEKLY 09/07/23 03/22/25 08/30/23 History subcutaneous pen injector (Trulicity) sevelamer carbonate 800 mg tablet 800 mg PO TID 09/07/23 03/22/25 09/05/23 History atorvastatin 40 mg tablet 40 mg PO DAILY 02/04/24 03/22/25 Unknown History blood sugar diagnostic (Accu-Chek 03/22/25 03/22/25 Unknown History Guide test strips) blood-glucose meter (Accu-Chek 03/22/25 03/22/25 Unknown History Guide Glucose Meter) nifedipine 30 mg tablet,extended 30 mg PO DAILY PRN high blood 03/22/25 03/22/25 Unknown History release pressure omeprazole 20 mg capsule,delayed 40 mg PO BID 03/22/25 03/22/25 Unknown History release Allergies Allergy/AdvReac Type Severity Reaction Status Date / Time captopril (From Capozide) Allergy Rash Verified 04/02/25 16:15 hydrochlorothiazide (From Allergy Rash Verified 04/02/25 16:15 Capozide) Review of Systems Review of Systems: All systems reviewed & are unremarkable except as noted in HPI and below PMFSH Past Medical History Medical History LUQ abdominal pain Black stools Constipation GERD (gastroesophageal reflux disease) AV fistula Legal blindness Cataracts, bilateral Depression Type 2 diabetes mellitus High cholesterol Hypertension End-stage renal disease on hemodialysis Surgical History Surgical History H/O cataract removal with insertion of prosthetic lens Family History Family History Mother Breast cancer Father Heart disease Diabetes mellitus Hypertension Sibling Lung cancer Diabetes mellitus Social History Social History Smoking status: Former smoker Tobacco type: cigarettes Alcohol intake: never Substance use: never Substance use type: does not use Do You Feel Safe in your Home?: Yes Lack of Transportation: No Lack of Food: Never True Current Housing: I Have Housing Concerned About Future Housing: No Difficulty Paying Gas/Electric Bills: No Difficulty Paying for Meds: No Currently Unemployed: No Education: Don't Know Difficulty w/ Childcare or Family Care: No Living arrangements: with family Spiritual care concerns: No Exam Narrative: General appearance: Well-developed, well-nourished Skin: Normal color Head: Normocephalic, nontraumatic Eyes: Clear conjunctiva ENT: Oropharynx normal, ears normal, nose normal Neck: Supple, nontender Chest and respiratory: Airway patent, no respiratory distress, no accessory muscle use Heart: Regular rate/rhythm Abdomen: Soft, nontender, no organomegaly, quiet bowel sounds Vascular: Normal peripheral pulses, normal capillary refill. Musculoskeletal: Diffuse back tenderness mainly on the left side, diffuse chest tenderness mainly on the left side with light palpation, no bruises, no swelling or rash Neurologic: Alert and oriented ?3, [employer] is normal as tested, no gross motor deficit Course Vital Signs Vital signs: Vital Signs Temperature 36.7 C 04/02/25 15:52 Pulse Rate 98 04/02/25 15:52 Respiratory Rate 20 04/02/25 15:52 Blood Pressure 163/59 H 04/02/25 15:52 Pulse Oximetry 100 04/02/25 15:52 Oxygen Delivery Room Air 04/02/25 15:52 Temperature 36.7 C 04/02/25 15:52 Pulse Rate 88 04/02/25 17:01 Respiratory Rate 18 04/02/25 17:01 Blood Pressure 143/67 H 04/02/25 17:01 Pulse Oximetry 100 04/02/25 17:01 Oxygen Delivery Room Air 04/02/25 17:01 MDM - Chest Pain MDM Narrative Medical decision making narrative: Patient presents with chest and back pain with movement and certain positions. t Vital signs showing blood pressure 163/59 otherwise within normal limit Physical examination showing diffuse tenderness of the chest and back with light palpation, legally blind Differential diagnosis musculoskeletal pain, electrolyte imbalance EKG showed normal sinus rhythm at 92 beats per minute, left axis deviation, delayed precordial R/S transition, nonspecific ST T-wave abnormality, borderline EKG, compared to January 15, 2025 no significant change. Chest x-ray showed mild CHF Blood workup today include CBC, CMP, troponin, showed hemoglobin of 8.4, sodium 133, potassium 5.1, BUN 25, creatinine 5.1 otherwise within normal limit Diagnosis chest wall pain, back pain Discharged on Tylenol, ibuprofen as needed The pt was discharged to home.the pt,s condition upon discharge was fair,education was provided to the pt in reference to the final impression,discharge study results,treatment,prognosis and need for follow up . Differential Diagnosis Differential diagnosis: Likely atypical chest pain, costochondritis and chest pain Medical Records Data Attestation: I reviewed the patient's medical records. Lab Data Attestation: I reviewed the patient's lab results. 04/02/25 16:18 04/02/25 16:18 Labs: Lab Results 04/02/25 Range/Units 16:18 WBC 9.3 (4.8-10.8) K/mm3 RBC 2.93 L (4.20-5.40) M/mm3 Hgb 8.4 L (11.7-13.8) g/dL Hct 28.0 L (35.0-42.0) % MCV 95.6 (78.0-102.0) fL MCH 28.7 (27.0-31.0) pg MCHC 30.0 L (32-36) g/dL RDW 14.4 (11.6-14.4) % Plt Count 369 (150-420) K/mm3 MPV 9.0 L (9.2-11.8) fl Immature Gran % (Auto) 1.0 H (0.0-0.0) % Neut % (Auto) 72.7 H (50.0-70.0) % Lymph % (Auto) 11.9 L (18.0-42.0) % [place] % (Auto) 9.6 (2.0-11.0) % Eos % (Auto) 4.0 (1.0-6.0) % Baso % (Auto) 0.8 (0.0-1.0) % Lymph # (Auto) 1.10 (1.10-4.50) K/mm3 [place] # (Auto) 0.89 (0.10-0.90) K/mm3 Eos # (Auto) 0.37 (0.02-0.50) K/mm3 Baso # (Auto) 0.07 (0.00-0.10) K/mm3 Abs Immat Gran (auto) 0.09 H (0.00-0.00) K/mm3 Absolute Neuts (auto) 6.75 (1.70-7.20) K/mm3 Absolute Nucleated RBC 0.09 H (0.00-0.00) K/mm3 Nucleated RBC % 1.0 H (0-0.0) % Sodium 133 L (137-145) mmol/L Potassium 5.1 H (3.4-5.0) mmol/L Chloride 100 (98-107) mmol/L Carbon Dioxide 30 (22-30) mmol/L Anion Gap 3 L (4-12) mmol/L BUN 25 H (7-17) mg/dL Creatinine 5.14 H (0.7-1.0) mg/dL Estim Creat Clear Calc 10 ml/min Estimated GFR 8 L (59 - ) Glucose 148 H (65-110) mg/dL Calculated Osmolality 283 L (285-295) mOsm/kg Calcium 9.6 (8.4-10.2) mg/dL Total Bilirubin 0.6 (0.2-1.3) mg/dL AST 20 (14-36) U/L ALT 9 (6-35) U/L Alkaline Phosphatase 78 (38-126) U/L Troponin I < 0.012 (0.000-0.034) ng/mL Total Protein 9.5 H (6.3-8.2) g/dL Albumin 3.8 (3.5-5.1) g/dL Imaging Data Radiologist's impression: Impressions Chest X-Ray 04/02/25 16:36 Impression: Mild CHF ECG Data EKG #1: ECG completion date: 04/02/25 Prior ECG tracings: available for review Interpretation: Normal sinus rhythm at 92 beats per minute, left axis deviation, delayed precordial/S transition, nonspecific ST T-wave abnormality, borderline EKG, compared to EKG on January 15, 2025 no significant change Discharge Plan Discharge Clinical Impression: Anemia, Chest pain, Back pain, Hemodialysis patient Patient Disposition: Home Condition: Stable Instructions: Back Pain (ED), Chest Wall Pain (ED) Additional Instructions: Return if symptoms are worsening , call your family physician for appointment, take Tylenol, ibuprofen as as needed for aches and pain, continue home medications. Patient Language: Wolof Prescriptions: No Action atorvastatin 40 mg tablet 40 mg PO DAILY ondansetron 4 mg tablet,disintegrating 4 mg PO Q8H PRN (Reason: nausea and vomiting) Qty: 20 0RF sevelamer carbonate 800 mg tablet 800 mg PO TID Trulicity 1.5 mg/0.5 mL pen injector 1.5 mg SUBCUT WEEKLY Rx Instructions: FRIDAYS aspirin [Children's Aspirin] 81 mg Tablet,Chewable 81 mg PO DAILY@0800 Qty: 30 0RF (DME) blood-glucose meter [Accu-Chek Guide Glucose Meter] Misc MISCELLANEOUS (DME) Accu-Chek Guide test strips Strip MISCELLANEOUS nifedipine 30 mg tablet extended release 30 mg PO DAILY PRN (Reason: high blood pressure) omeprazole 20 mg capsule,delayed release(DR/EC) 40 mg PO BID Follow-up/Referrals: Ron,NIKKI Cobos [Primary Care Provider]
[2025-04-02 15:55] VITALS: PULSE 96
--- NOTE | 2025-04-02 15:59 | ECG_ITS ---
Test Date: 2025-04-02 16:03:54 Measurements Intervals [place] Rate: 92 P: 45 SD: 159 QRS: -33 QRSD: 96 T: 84 QT: 362 QTc: 449 Interpretive Statements SINUS RHYTHM LEFT AXIS DEVIATION DELAYED PRECORDIAL R/S TRANSITION NONSPECIFIC ST & T-WAVE ABNORMALITY- HIGH LATERAL LEADS BASELINE ARTIFACT- I, II, III, AVR, AVL, AVF, V1 BORDERLINE ECG Compared to ECG 01/15/2025 21:16:43 NO SIGNIFICANT CHANGE Electronically Signed On 04-02-2025 16:07:19 CDT by Walter Varela D.O.
[2025-04-02 16:05] VITALS: BP 163/59; PULSE 92; RESP 24; O2SAT 100
[2025-04-02 16:22] LABS: Hematocrit 28.0 % (35.0-42.0); Hemoglobin 8.4 g/dL (11.7-13.8); Immature Granulocyte Percent A 1.0 % (0.0-0.0); Lymphocytes Absolute Auto 1.10 K/mm3 (1.10-4.50); Mean Corpuscular HGB Conc 30.0 g/dL (32-36); Mean Corpuscular Hemoglobin 28.7 pg (27.0-31.0); Mean Corpuscular Volume 95.6 fL (78.0-102.0); Nucleated Red Blood Cells Absolute Auto 0.09 K/mm3 (0.00-0.00); Nucleated Red Blood Cells Perc 1.0 % (0-0.0); Platelet Count Result 369 K/mm3 (150-420); Red Blood Count 2.93 M/mm3 (4.20-5.40); White Blood Count 9.3 K/mm3 (4.8-10.8)
[2025-04-02 16:32] LABS: Alanine Aminotransferase 9 U/L (6-35); Albumin Level 3.8 g/dL (3.5-5.1); Alkaline Phosphatase 78 U/L (38-126); Anion Gap 3 mmol/L (4-12); Aspartate Amino Transferase 20 U/L (14-36); Bilirubin,Total 0.6 mg/dL (0.2-1.3); Blood Urea Nitrogen 25 mg/dL (7-17); Calcium 9.6 mg/dL (8.4-10.2); Carbon Dioxide 30 mmol/L (22-30); Chloride 100 mmol/L (98-107); Estimated CRCL calculation 10 ml/min; Estimated Glomerular Filt Rate 8; Glucose 148 mg/dL (65-110); Osmolality Calculated 283 mOsm/kg (285-295); Potassium 5.1 mmol/L (3.4-5.0); Sodium 133 mmol/L (137-145); Total Protein 9.5 g/dL (6.3-8.2)
[2025-04-02 16:45] LABS: Troponin I < 0.012 ng/mL (0.000-0.034)
[2025-04-02 17:01] VITALS: BP 143/67; PULSE 88; RESP 18; O2SAT 100
[2025-04-02 17:32] VITALS: BP 142/64; PULSE 82; RESP 20; TEMP 37; O2SAT 98
== END 2025-04-02 17:32 | disposition home or self-care (01) ==
PROVIDERS: Emergency Provider Emergency Medicine; PCP Physician Assistant
DX: D64.9 Anemia, unspecified (principal); R07.9 Chest pain, unspecified; M54.9 Dorsalgia, unspecified; E78.5 Hyperlipidemia, unspecified; E11.22 Type 2 diabetes mellitus with diabetic chronic kidney disease; I13.0 Hypertensive heart and chronic kidney disease with heart failure and stage 1 through stage 4 chronic kidney disease, or unspecified chronic kidney disease; N18.9 Chronic kidney disease, unspecified; I50.9 Heart failure, unspecified; Z87.891 Personal history of nicotine dependence; Z99.2 Dependence on renal dialysis
CPT/HCPCS: 36415; 71045; 80053; 84484; 85025; 93005; 99284

== ENCOUNTER 2025-04-06 01:01 | Day surgery (SDC) | payer MEDICARE, MEDICAID, SELFPAY ==
[2025-04-01 14:50] VITALS: BMI 29.3
--- OUTSIDE RECORDS SUMMARY | 2025-04-06 01:04 | XMS_ITS | Data Portability ---
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 Plan of Treatment Reminders Order Date Submit Date Provider Last Modified By Organization Details Last Modified Time Details Appointments ANY 15 2024 10:45A M Alvina Velasquez PA-C Not available Not available Not available Lab HbA1c (hemoglob in A1c), blood 2024 025 [facility] In-Office Order, Internal Use Only DO Not Attach Compendium DO Not Attach Compendium, Do Not Delete/merge, [id number] 03/11/2025 11:50:13 CMP, serum or plasma 2024 025 [facility] [facility], [address] [facility], [address], [address], 03/12/2025 15:50:30 Referral None recorded. Procedures None recorded. Surgeries None recorded. Imaging None recorded. Medication Orders Macrobid 100 mg capsule 2024 025 [facility] [address], [address], 03/28/2025 05:01:56 Patient TargetsNo targets recorded. Patient Instructions Encounter Date Encounter Id Patient Instructions Last Modified By Organization Details Last Modified Time 12/31/2024 [id number] low blood pressure: care instructions jnanney Not available 12/31/2024 16:47:46 chronic kidney disease: care instructions jnanney Not available 12/31/2024 16:47:46 learning about chronic kidney disease jnanney Not available 12/31/2024 16:47:46 01/12/2025 [id number] A healthy lifestyle: care instructions jnanney Not available 01/12/2025 12:26:51 chronic kidney disease: care instructions jnanney Not available 01/12/2025 12:26:51 end-stage renal disease: care instructions jnanney Not available 01/12/2025 12:26:51 01/26/2025 [id number] type 2 diabetes: care instructions jnanney Not available 01/26/2025 11:46:30 02/11/2025 [id number] learning about type 2 diabetes jnanney Not available 02/11/2025 12:02:46 type 2 diabetes: care instructions jnanney Not available 02/11/2025 12:02:46 learning about high blood pressure jnanney Not available 02/11/2025 12:02:46 03/11/2025 [id number] chronic kidney disease: care instructions jnanney Not available 03/11/2025 11:24:12 learning about chronic kidney disease jnanney Not available 03/11/2025 11:24:11 blood in the urine: care instructions jnanney Not available 03/11/2025 10:59:58 Reason for Referral None Reported. Results Created [...] Not Available 12/31/2024 16:27:15 12/31/19 25 12/30/2024 Ijeoma tin [Mass /volu me] in Serum or Plasm a ferritin [mass/volume ] in serum or plasma 939 text: 10.0-2 91.0 high Not Available Not Available 12/31/2024 16:27:16 01/06/20 25 01/05/2025 Hemog lobin [Mass /volu me] in Blood hemoglobin [mass/volume ] in blood 12.2 text: 12.0-1 6.0 Not Available Not Available 01/07/2025 05:31:21 01/06/20 25 01/05/2025 Basic metab olic 1999 panel - Serum or Plasm a glucose [mass/volume ] in serum or plasma 87 mg/dL low: 70mg/d Lhigh: 99mg/d L Not Available Not Available 01/07/2025 05:31:05 01/06/20 25 01/05/2025 Basic metab olic 2000 panel - Serum or Plasm a sodium [moles/volum e] in serum or plasma 140 mmol/ L low: 136mmo l/Lhig h: 145mmo l/L Not Available Not Available 01/07/2025 05:31:05 01/06/20 25 01/05/2025 [facility] 1999 panel - Serum or Plasm a potassium [moles/volum e] in serum or plasma 4.7 mmol/ L low: 3.5mmo l/Lhig h: 5.1mmo l/L Not Available Not Available 01/07/2025 05:31:05 01/06/20 25 01/05/2025 [facility] - Serum or Plasm a chloride [moles/volum e] in serum or plasma 103 mmol/ L low: 98mmol /Lhigh : 107mmo l/L Not Available Not Available 01/07/2025 05:31:05 01/06/20 25 01/05/2025 [facility] 1999 panel - Serum or Plasm a carbon dioxide, total [moles/volum e] in serum or plasma 24 mmol/ L low: 22mmol /Lhigh : 29mmol /L Not Available Not Available 01/07/2025 05:31:05 01/06/20 25 01/05/2025 [facility] 1999 panel - Serum or Plasm a calcium [mass/volume ] in serum or plasma 9.8 mg/dL low: 8.4mg/ dLhigh : 10.4mg /dL Not Available Not Available 01/07/2025 05:31:05 01/06/20 25 01/05/2025 [facility] 1999 panel - Serum or Plasm a anion gap in blood by calculation 13 mmol/ L low: 6mmol/ Lhigh: 16mmol /L Not Available Not Available 01/07/2025 05:31:05 01/06/20 25 01/05/2025 [facility] 1999 panel - Serum or Plasm a urea nitrogen [mass/volume ] in serum or plasma 30 mg/dL low: 7mg/dL high: 26mg/d L high Not Available Not Available 01/07/2025 05:31:05 01/06/20 25 01/05/2025 [facility] 1999 panel - Serum or Plasm a creatinine [mass/volume ] in serum or plasma 6.23 mg/dL low: 0.57mg /dLhig h: 1.11mg /dL high Not Available Not Available 01/07/2025 05:31:05 01/06/20 25 01/05/2025 Basic metab olic 2000 panel - Serum or Plasm a glomerular filtration rate [volume rate/area] in serum, plasma or blood by creatinine-b ased formula (CKD-epi 2020)/1.73 sq M 7 text: >=90 mL/min /1.73 m2 low Estim ated Glome rular Filtr ation Rate (eGFR ) calcu lated using the CKD-E PI Creat inine Equat ion (2020 ), per the Natio nal Kidne y Found ation and Ameri can Socie ty of Nephr ology recom menda tions . Not Available Not Available 01/07/2025 05:31:05 01/06/20 25 01/05/2025 Basic metab olic 2000 panel - Serum or Plasm a interpretati on and review of laboratory results Abnorm al Not Available Not Available 05:31:05 01/13/20 25 01/12/[address] [Mass /volu me] in Serum or Plasm a parathyrin.i ntact [mass/volume ] in serum or plasma 276 text: 18.0-8 0.0 high Not Available Not Available 01/19/2025 08:30:16 01/13/20 25 01/12/[address] [Mass /volu me] in Serum or Plasm a parathyrin.i ntact [mass/volume ] in serum or plasma 276 text: 18.0-8 0.0 high Not Available Not Available 01/19/2025 08:30:16 01/13/20 25 01/12/2025 Hemog lobin [Mass /volu me] in Blood hemoglobin [mass/volume ] in blood 11.3 text: 12.0-1 6.0 low Not Available Not Available 01/19/2025 08:30:16 01/13/20 25 01/12/2025 Hemog lobin [Mass /volu me] in Blood hemoglobin [mass/volume ] in blood 11.3 text: 12.0-1 6.0 low Not Available Not Available 01/19/2025 08:30:16 01/13/2001/12/2025 Phosp hate [Mass /volu me] in Serum or Plasm a phosphate [mass/volume ] in serum or plasma 6 text: 2.4-5. 1 high Not Available Not Available 01/19/2025 08:30:17 01/13/20 25 01/12/2025 Urea nitro gen [Mass /volu me] in Serum or Plasm a urea nitrogen [mass/volume ] in serum or plasma 73 text: 9.0-23 .0 high Not Available Not Available 01/19/2025 08:30:16 01/13/20 25 01/12/2025 Phosp hate [Mass /volu me] in Serum or Plasm a phosphate [mass/volume ] in serum or plasma 6 text: 2.4-5. 1 high Not Available Not Available 01/19/2025 08:30:16 01/13/20 25 01/12/2025 Urea nitro gen [Mass /volu me] in Serum or Plasm a urea nitrogen [mass/volume ] in serum or plasma 73 text: 9.0-23 .0 high Not Available Not Available 01/19/2025 08:30:16 01/14/20 25 01/13/2025 Urea nitro gen [Mass /volu me] in Serum or Plasm a --pos t dialy sis urea nitrogen [mass/volume ] in serum or plasma --post dialysis 17 text: 9.0-23 .0 Not Available Not Available 01/19/2025 08:30:16 01/14/20 25 01/13/2025 Urea nitro gen [Mass /volu me] in Serum or Plasm a --pos t dialy sis urea nitrogen [mass/volume ] in serum or plasma --post dialysis 17 text: 9.0-23 .0 Not Available Not Available 01/19/2025 08:30:16 01/14/20 25 01/13/2025 Calci um [Mass /volu me] in Serum or Plasm a calcium [mass/volume ] in serum or plasma 9.7 text: 8.7-10 .4 Not Available Not Available 01/19/2025 08:30:16 01/14/20 25 01/13/2025 Calci um [Mass /volu me] in Serum or Plasm a calcium [mass/volume ] in serum or plasma 9.7 text: 8.7-10 .4 Not Available Not Available 01/19/2025 08:30:16 01/16/2001/15/2025 Hemog lobin [Mass /volu me] in Blood hemoglobin [mass/volume ] in blood 11.2 text: 12-16 Not Available Not Available 01/26/2025 04:13:38 01/16/20 25 01/15/2025 CBC panel - Blood by Autom ated count leukocytes [#/volume] in blood by automated count 8.86 text: 4.00 - 10.80 x10'3/ uL Not Available Not Available 01/19/2025 08:29:43 01/16/20 25 01/15/2025 CBC panel - Blood by Autom ated count erythrocytes [#/volume] in blood by automated count 3.66 text: 4.10 - 5.40 x10'6/ uL low Not Available Not Available 01/19/2025 08:29:43 01/16/20 25 01/15/2025 CBC panel - Blood by Autom ated count hemoglobin [mass/volume ] in blood 11.2 text: 12.0 - 16.0 g/dL low Not Available Not Available 01/19/2025 08:29:43 01/16/2001/15/2025 CBC panel - Blood by Autom ated count hematocrit [volume fraction] of blood by calculation 33.6 % low: 36%hig h: 47% low Not Available Not Available 01/19/2025 08:29:43 01/16/2001/15/2025 CBC panel - Blood by Autom ated count MCV [entitic mean volume] in red blood cells 91.8 text: 78.0 - 100.0 fL Not Available Not Available 01/19/2025 08:29:43 01/16/2001/15/2025 CBC panel - Blood by Autom ated count MCH [entitic mass] 30.6 pg low: 27pghi gh: 31pg Not Available Not Available 01/19/2025 08:29:43 01/16/20 25 01/15/2025 CBC panel - Blood by Autom ated count MCHC [entitic mass/volume] in red blood cells 33.3 text: 33.0 - 36.0 g/dL Not Available Not Available 01/19/2025 08:29:43 01/16/20 25 01/15/2025 CBC panel - Blood by Autom ated count RDW 15.5 % low: 11.5%h igh: 14.5% high Not Available Not Available 01/19/2025 08:29:43 01/16/20 25 01/15/2025 CBC panel - Blood by Autom ated count platelets [#/volume] in blood 271 text: 150 - 350 x10'3/ uL Not Available Not Available 01/19/2025 08:29:43 01/16/20 25 01/15/2025 CBC panel - Blood by Autom ated count platelet [entitic mean volume] in blood 10.2 text: 7.4 - 10.4 fL Not Available Not Available 01/19/2025 08:29:43 01/16/20 25 01/15/2025 CBC panel - Blood by Autom ated count interpretati on and review of laboratory results Abnorm al Not Available Not Available 08:29:43 01/27/2001/26/2025 MCV [Enti tic mean volum e] in Red Blood Cells by Autom ated count MCV [entitic mean volume] in red blood cells by automated count 95 text: 80.0-1 00.0 Not Available Not Available 02/11/2025 05:04:13 01/27/2001/26/2025 Leuko cytes [#/vo lume] in Blood by Autom ated count leukocytes [#/volume] in blood by automated count 10 text: 4.0-11 .0 Not Available Not Available 02/11/2025 05:04:13 01/27/20 25 01/26/2025 Plate lets [#/vo lume] in Blood by Autom ated count platelets [#/volume] in blood by automated count 272 text: 140.0- 450.0 Not Available Not Available 02/11/2025 05:04:13 01/27/20 25 01/26/2025 Hemog lobin [Mass /volu me] in Blood hemoglobin [mass/volume ] in blood 11.9 text: 12.0-1 6.0 low Not Available Not Available 02/11/2025 05:04:13 01/27/20 25 01/26/2025 Eosin ophil s [#/vo lume] in Blood by Autom ated count eosinophils [#/volume] in blood by automated count 531 text: 0.0-70 0.0 Not Available Not Available 02/11/2025 05:04:13 01/27/20 25 01/26/2025 Hemat ocrit [Volu me Fract ion] of Blood by Autom ated count hematocrit [volume fraction] of blood by automated count 36.6 text: 37.0-4 7.0 low Not Available Not Available 02/11/2025 05:04:13 01/27/20 25 01/26/2025 Eryth rocyt es [#/vo lume] in Blood by Autom ated count erythrocytes [#/volume] in blood by automated count 3.85 text: 3.85-5 .2 Not Available Not Available 02/11/2025 05:04:13 01/27/20 25 01/26/2025 Iron [Mass /volu me] in Serum or Plasm a iron [mass/volume ] in serum or plasma 60 text: 50.0-1 70.0 Not Available Not Available 02/11/2025 05:04:13 01/27/20 25 01/26/2025 Chlor keri [Mole s/vol ume] in Serum or Plasm a chloride [moles/volum e] in serum or plasma 100 text: 98.0-1 07.0 Not Available Not Available 02/11/2025 05:04:13 01/27/20 25 01/26/2025 Iron shaun ng capac ity.u nsatu rated [Mass /volu me] in Serum or Plasm a iron binding capacity.uns aturated [mass/volume ] in serum or plasma 144 text: 80.0-3 75.0 Not Available Not Available 02/11/2025 05:04:13 01/27/20 25 01/26/2025 Sodiu m [Mole s/vol ume] in Serum or Plasm a sodium [moles/volum e] in serum or plasma 137 text: 136.0- 145.0 Not Available Not Available 02/11/2025 05:04:13 01/27/20 25 01/26/2025 Potas sium [Mole s/vol ume] in Serum or Plasm a potassium [moles/volum e] in serum or plasma 5 text: 3.5-5. 1 Not Available Not Available 02/11/2025 05:04:13 01/27/20 25 01/26/2025 Ijeoma tin [Mass /volu me] in Serum or Plasm a ferritin [mass/volume ] in serum or plasma 1165 text: 10.0-2 91.0 high Not Available Not Available 02/11/2025 05:04:13 01/27/20 25 01/26/2025 Alkal ine phosp hatas e [Enzy matic activ ity/v olume ] in Serum or Plasm a alkaline phosphatase [enzymatic activity/vol ume] in serum or plasma 81 text: 46.0-1 16.0 Not Available Not Available 02/11/2025 05:04:14 01/27/20 25 01/26/2025 Bicar bonat e [Mole s/vol ume] in Serum or Plasm a bicarbonate [moles/volum e] in serum or plasma 24 text: 20.0-3 1.0 Not Available Not Available 02/11/2025 05:04:14 01/27/20 25 01/26/2025 Nikos ne amino trans feras e [Enzy matic activ ity/v olume ] in Serum or Plasm a alanine aminotransfe rase [enzymatic activity/vol ume] in serum or plasma 7 text: 10.0-4 9.0 low Not Available Not Available 02/11/2025 05:04:14 01/27/20 25 01/26/2025 Lacta te dehyd rogen ase [Enzy matic activ ity/v olume ] in Serum or Plasm a lactate dehydrogenas e [enzymatic activity/vol ume] in serum or plasma 167 text: 120.0- 246.0 Not Available Not Available 02/11/2025 05:04:14 01/27/20 25 01/26/2025 Creat inine [Mass /volu me] in Serum or Plasm a creatinine [mass/volume ] in serum or plasma 8.58 text: 0.55-1 .02 high Not Available Not Available 02/11/2025 05:04:14 01/27/20 25 01/26/2025 Aspar winter amino trans feras e [Enzy matic activ ity/v olume ] in Serum or Plasm a aspartate aminotransfe rase [enzymatic activity/vol ume] in serum or plasma 12 text: 0.0-33 .0 Not Available Not Available 02/11/2025 05:04:13 01/27/2001/26/2025 Prote in [Mass /volu me] in Serum or Plasm a protein [mass/volume ] in serum or plasma 7 text: 5.7-8. 2 Not Available Not Available 02/11/2025 05:04:13 01/27/2001/26/2025 Album in [Mass /volu me] in Serum or Plasm a by Bromo creso l green (BCG) dye shaun ng metho d albumin [mass/volume ] in serum or plasma by bromocresol green (bcg) dye binding method 3.8 text: 3.2-4. 8 Not Available Not Available 02/11/2025 05:04:13 02/10/20 25 02/09/2025 Gluco se [Mass /volu me] in Arter ial blood glucose [mass/volume ] in capillary blood by glucometer 78 mg/dL low: 70mg/d Lhigh: 99mg/d L Not Available Not Available 02/11/2025 05:02:59 02/10/20 25 02/09/2025 Gluco se [Mass /volu me] in Arter ial blood specimen source identified Venous Not Available Not Available 0 02/11/2025 05:02:59 02/10/20 25 02/09/2025 Potas sium [Mole s/vol ume] in Serum or Plasm a potassium [moles/volum e] in serum or plasma 4.5 mmol/ L low: 3.5mmo l/Lhig h: 5.5mmo l/L Not Available Not Available 02/11/2025 05:02:59 02/10/20 25 02/09/2025 Potas sium [Mole s/vol ume] in Serum or Plasm a interpretati on and review of laboratory results Normal Not Available Not Available 09/2024 05:02:59 02/14/20 25 02/13/2025 Phosp hate [Mass /volu me] in Serum or Plasm a phosphate [mass/volume ] in serum or plasma 4.7 text: 2.4-5. 1 Not Available Not Available 02/17/2025 04:43:19 02/14/20 25 02/13/2025 Urea nitro gen [Mass /volu me] in Serum or Plasm a urea nitrogen [mass/volume ] in serum or plasma 48 text: 9.0-23 .0 high Not Available Not Available 02/17/2025 04:43:19 02/14/20 25 02/13/2025 Urea nitro gen [Mass /volu me] in Serum or Plasm a --pos t dialy sis urea nitrogen [mass/volume ] in serum or plasma --post dialysis 12 text: 9.0-23 .0 Not Available Not Available 02/17/2025 04:43:20 02/14/20 25 02/13/[address] [Mass /volu me] in Serum or Plasm a parathyrin.i ntact [mass/volume ] in serum or plasma 194 text: 18.0-8 0.0 high Not Available Not Available 02/17/2025 04:43:20 02/16/20 25 02/15/2025 Calci um [Mass /volu me] in Serum or Plasm a calcium [mass/volume ] in serum or plasma 9.4 text: 8.7-10 .4 Not Available Not Available 02/17/2025 04:43:19 02/17/20 25 02/16/2025 Hemog lobin [Mass /volu me] in Blood hemoglobin [mass/volume ] in blood 10 text: 12.0-1 6.0 low Not Available Not Available 02/17/2025 04:43:19 02/23/20 25 02/23/2025 tb (M tuber culos is), ifn-g adan millie , blood mycobacteriu m tuberculosis stimulated gamma interferon release by cd4+ T-cells, qn, blood (obs) 0.07 text: IU/mL Not Available Not Available 03/03/2025 11:33:04 02/23/20 25 02/23/2025 tb (M tuber culos is), ifn-g adan millie , blood mycobacteriu m tuberculosis stimulated gamma interferon release by cd4+ and cd8+ T-cells, corrected for background, qn, blood 0.06 text: IU/mL Not Available Not Available 03/03/2025 11:33:04 02/23/20 25 02/23/2025 tb (M tuber culos is), ifn-g adan millie , blood TB (M tuberculosis ), ifn-gamma millie, blood NEGATI VE text: negati ve Not Available Not Available 03/03/2025 11:33:04 02/23/20 25 02/23/2025 tb (M tuber culos is), ifn-g adan millie , blood TB (M tuberculosis ), ifn-gamma millie, blood M. tuberc ulosis infect ion unlike ly but cannot be exclud ed especi ally when any illnes s is consis tent with TB diseas e and/or likeli iglesias of progre ssion to diseas e is increa sed. In patien ts at high risk to M. tuberc ulosis infect ion, a second test should be consid ered. Not Available Not Available 11:33:04 02/24/20 25 02/23/2025 iron- shaun ng capac ity, unsat urate d, serum iron-binding capacity, unsaturated, serum 152 text: 80.0-3 75.0 Not Available Not Available 03/03/2025 11:32:25 02/24/20 25 02/23/2025 iron, serum iron, serum 36 text: 50.0-1 70.0 low Not Available Not Available 03/03/2025 11:32:25 02/24/20 25 02/23/2025 chlor keri, serum or plasm a chloride, serum or plasma 101 text: 98.0-1 07.0 Not Available Not Available 03/03/2025 11:32:25 02/24/20 25 02/23/2025 sodiu m, serum or plasm a sodium, serum or plasma 140 text: 136.0- 145.0 Not Available Not Available 03/03/2025 11:32:25 02/24/20 25 02/23/2025 potas sium, serum or plasm a potassium, serum or plasma 4.6 text: 3.5-5. 1 Not Available Not Available 03/03/2025 11:32:24 02/24/20 25 02/23/2025 ijeoma tin, serum or plasm a ferritin, serum or plasma 1039 text: 7.0-27 1.0 high Not Available Not Available 03/03/2025 11:32:25 02/24/20 25 02/23/2025 plate lets, auto, blood platelets, auto, blood 259 text: 140.0- 450.0 Not Available Not Available 03/03/2025 11:32:26 02/24/20 25 02/23/2025 retic ulocy te count , auto, blood reticulocyte count, auto, blood 1.31 text: 0.7-2. 5 Not Available Not Available 03/03/2025 11:32:26 02/24/20 25 02/23/2025 mcv, blood MCV, blood 96.4 text: 80.0-1 00.0 Not Available Not Available 03/03/2025 11:32:25 02/24/20 25 02/23/2025 hemat ocrit , autom ated count , blood hematocrit, automated count, blood 30.2 text: 37.0-4 7.0 low Not Available Not Available 03/03/2025 11:32:25 02/24/20 25 02/23/2025 wbc, auto, blood WBC, auto, blood 8.2 text: 4.0-11 .0 Not Available Not Available 03/03/2025 11:32:25 02/24/20 25 02/23/2025 eosin ophil s, auto, blood , absol bro eosinophils, auto, blood, absolute 510 text: 0.0-70 0.0 Not Available Not Available 03/03/2025 11:32:25 02/24/20 25 02/23/2025 RBC count , blood RBC count, blood 3.14 text: 3.85-5 .2 low Not Available Not Available 03/03/2025 11:32:25 02/24/20 25 02/23/2025 hemog lobin (Hb), blood hemoglobin (Hb), blood 9.7 text: 12.0-1 6.0 low Not Available Not Available 03/03/2025 11:32:25 02/24/20 25 02/23/2025 ALT (peter ine amino trans feras e), serum or plasm a ALT (alanine aminotransfe rase), serum or plasma 7 text: 10.0-4 9.0 low Not Available Not Available 03/03/2025 11:32:26 02/24/20 25 02/23/2025 Lacta te dehyd rogen ase [Enzy matic activ ity/v olume ] in Serum or Plasm a lactate dehydrogenas e [enzymatic activity/vol ume] in serum or plasma 170 text: 120.0- 246.0 Not Available Not Available 03/03/2025 11:32:26 02/24/20 25 02/23/2025 prote in, total , serum protein, total, serum 6.7 text: 5.7-8. 2 Not Available Not Available 03/03/2025 11:32:26 02/24/20 25 02/23/2025 AST/S GOT (aspa rtate amino trans feras e), serum or plasm a AST/SGOT (aspartate aminotransfe rase), serum or plasma 11 text: 0.0-33 .0 Not Available Not Available 03/03/2025 11:32:26 02/24/20 25 02/23/2025 bicar bonat e, quant , serum bicarbonate, quant, serum 25 text: 20.0-3 1.0 Not Available Not Available 03/03/2025 11:32:26 02/24/20 25 02/23/2025 alkal ine phosp hatas e, serum or plasm a alkaline phosphatase, serum or plasma 81 text: 46.0-1 16.0 Not Available Not Available 03/03/2025 11:32:26 02/24/20 25 02/23/2025 creat inine , serum or plasm a creatinine, serum or plasma 7.53 text: 0.55-1 .02 high Not Available Not Available 03/03/2025 11:32:26 02/24/20 25 02/23/2025 album in, QN, BCG dye, serum or plasm a albumin, qn, bcg dye, serum or plasma 3.6 text: 3.2-4. 8 Not Available Not Available 03/03/2025 11:32:26 03/09/20 25 03/09/2025 hemog lobin (Hb), blood hemoglobin (Hb), blood 8.5 text: 12.0-1 6.0 low Not Available Not Available 03/10/2025 07:16:53 03/11/2003/11/2025 HbA1c (hemo globi n A1c), blood HbA1C 5.7 % Not Available In-Office Order Internal Use Only DO Not Attach Compendium DO Not Attach Compendium, Do Not Delete/merge, [id number] 03/11/2025 11:28:44 03/16/2003/16/2025 calci um, serum or plasm a calcium, serum or plasma 9.7 text: 8.7-10 .4 Not Available Not Available 03/18/2025 15:37:21 03/16/2003/16/2025 PTH (para thyro id hormo ne), intac t, serum or plasm a PTH (parathyroid hormone), intact, serum or plasma 173 text: 18.0-8 0.0 high Not Available Not Available 03/18/2025 15:37:21 03/16/2003/16/2025 hemog lobin (Hb), blood hemoglobin (Hb), blood 9.1 text: 12.0-1 6.0 low Not Available Not Available 03/18/2025 15:37:21 03/16/2003/16/2025 retic ulocy te count , auto, blood reticulocyte count, auto, blood 3.74 text: 0.7-2. 5 high Not Available Not Available 03/18/2025 15:37:21 03/16/2003/16/2025 phosp horus , serum or plasm a phosphorus, serum or plasma 3.7 text: 2.4-5. 1 Not Available Not Available 03/18/2025 15:37:21 03/16/2003/16/2025 bun (bloo d urea nitro gen), serum or plasm a BUN (blood urea nitrogen), serum or plasma 55 text: 9.0-23 .0 high Not Available Not Available 03/18/2025 15:37:21 03/16/2003/16/2025 BUN, post- dialy sis, serum BUN, post-dialysi s, serum 14 text: 9.0-23 .0 Not Available Not Available 03/18/2025 15:37:21 03/30/20 25 03/30/2025 iron, serum iron, serum 19 text: 50.0-1 70.0 low Not Available Not Available 03/31/2025 11:20:41 03/30/2003/30/2025 chlor keri, serum or plasm a chloride, serum or plasma 98 text: 98.0-1 07.0 Not Available Not Available 03/31/2025 11:20:41 03/30/2003/30/2025 sodiu m, serum or plasm a sodium, serum or plasma 137 text: 136.0- 145.0 Not Available Not Available 03/31/2025 11:20:41 03/30/2003/30/2025 potas sium, serum or plasm a potassium, serum or plasma 5 text: 3.5-5. 1 Not Available Not Available 03/31/2025 11:20:41 03/30/2003/30/2025 iron- shaun ng capac ity, unsat urate d, serum iron-binding capacity, unsaturated, serum 169 text: 80.0-3 75.0 Not Available Not Available 03/31/2025 11:20:41 03/30/2003/30/2025 ijeoma tin, serum or plasm a ferritin, serum or plasma 1132 text: 7.0-27 1.0 high Not Available Not Available 03/31/2025 11:20:41 03/30/2003/30/2025 hemog lobin (Hb), blood hemoglobin (Hb), blood 8.7 text: 12.0-1 6.0 low Not Available Not Available 03/31/2025 11:20:42 03/30/2003/30/2025 mcv, blood MCV, blood 91.3 text: 80.0-1 00.0 Not Available Not Available 03/31/2025 11:20:42 03/30/2003/30/2025 hemat ocrit , autom ated count , blood hematocrit, automated count, blood 26.8 text: 37.0-4 7.0 low Not Available Not Available 03/31/2025 11:20:41 03/30/2003/30/2025 RBC count , blood RBC count, blood 2.94 text: 3.85-5 .2 low Not Available Not Available 03/31/2025 11:20:41 03/30/2003/30/2025 plate lets, auto, blood platelets, auto, blood 352 text: 140.0- 450.0 Not Available Not Available 03/31/2025 11:20:41 03/30/2003/30/2025 eosin ophil s, auto, blood , absol bro eosinophils, auto, blood, absolute 547 text: 0.0-70 0.0 Not Available Not Available 03/31/2025 11:20:41 03/30/20 25 03/30/2025 wbc, auto, blood WBC, auto, blood 9.8 text: 4.0-11 .0 Not Available Not Available 03/31/2025 11:20:41 03/30/2003/30/2025 bicar bonat e, quant , serum bicarbonate, quant, serum 27 text: 20.0-3 1.0 Not Available Not Available 03/31/2025 11:20:42 03/30/20 25 03/30/2025 ALT (peter ine amino trans feras e), serum or plasm a ALT (alanine aminotransfe rase), serum or plasma 7 text: 10.0-4 9.0 low Not Available Not Available 03/31/2025 11:20:42 03/30/2003/30/2025 Lacta te dehyd rogen ase [Enzy matic activ ity/v olume ] in Serum or Plasm a lactate dehydrogenas e [enzymatic activity/vol ume] in serum or plasma 161 text: 120.0- 246.0 Not Available Not Available 03/31/2025 11:20:42 03/30/20 25 03/30/2025 alkal ine phosp hatas e, serum or plasm a alkaline phosphatase, serum or plasma 76 text: 46.0-1 16.0 Not Available Not Available 03/31/2025 11:20:42 03/30/2003/30/2025 AST/S GOT (aspa rtate amino trans feras e), serum or plasm a AST/SGOT (aspartate aminotransfe rase), serum or plasma 12 text: 0.0-33 .0 Not Available Not Available 03/31/2025 11:20:42 03/30/20 25 03/30/2025 creat inine , serum or plasm a creatinine, serum or plasma 7.48 text: 0.55-1 .02 high Not Available Not Available 03/31/2025 11:20:42 03/30/20 25 03/30/2025 prote in, total , serum protein, total, serum 7.2 text: 5.7-8. 2 Not Available Not Available 03/31/2025 11:20:42 03/30/20 25 03/30/2025 album in, QN, BCG dye, serum or plasm a albumin, qn, bcg dye, serum or plasma 3.4 text: 3.2-4. 8 Not Available Not Available 03/31/2025 11:20:42 01/01/20 25 12/31/2024 CT, head, w/o contr ast No observ ation record ed. [facility] [address] [place], [address], 01/01/2025 15:33:39 01/16/20 25 01/15/2025 XR, chest No observ ation record ed. [address], [place], [address], 01/18/2025 09:24:05 04/02/2004/02/2025 XR, chest [facility] [address] [place], [address], 04/05/2025 09:17:15 Result Notes None recorded. Problems Name Problem SNOMED Code Status Onset Date Resolution Date Notes Provider Name and Address Organization Details Recorded Time Chronic ulcer of foot 912124700 Active Meggan Littlejohn MD Attn: Accounting ,[address] [place], [address] , [place] - [place] 2 10:46:44 Type 2 diabetes mellitus with ulcer 220765531 Active Meggan Littlejohn MD Attn: Accounting ,[address] [place], [address] , [facility] - [facility] 2 10:46:45 Chest pain 75961304 Active Meggan Littlejohn MD Attn: Accounting ,[address] [facility], [place], [place], [address] [place] [address] , [place] [facility] 2 10:48:50 D-dimer above reference range 108840829 Active Meggan Littlejohn MD Attn: Accounting ,[address] [facility], [place], [address] , [place] [facility] 2 10:48:50 Diabetes mellitus 79907369 Active Meggan Littlejohn MD Attn: Accounting ,[address] [facility], [place], [address] [place] [address] , [place] [facility] 3 16:12:38 Folliculi tis 39954374 Active Meggan Littlejohn MD Attn: Accounting ,[address] [facility], [place], [address] [place] [address] , [place] [facility] 2 10:48:50 Hallux valgus 299966901 Active Meggan Littlejohn MD Attn: Accounting ,[address] [facility], [place], [address] [place] [address] , [place] [facility] 2 10:48:50 Type 2 diabetes mellitus 43151462 Active Meggan Littlejohn MD Attn: Accounting ,[address] [facility], [place], [address] [place] [address] , [place] [facility] 2 10:48:50 Obesity 733860168 Active Not Available [employer] 2 09:25:20 Hypertens mayra disorder 21819698 Active Meggan Littlejohn MD Attn: Accounting ,[address] [facility], [place], [address] [place] [address] , [place] [facility] 2 10:46:45 Hyperlipi demia 46341708 Active Meggan Littlejohn MD Attn: Accounting ,[address] [facility], [place], [address] , [place] [facility] 2 10:48:51 Congestiv e heart failure 18940224 Active Not Available [facility] 2 09:25:21 Anxiety 85483012 Active Meggan Littlejohn MD Attn: Accounting ,[address] [facility], [place], [address] [place] [address] , [place] [facility] 2 10:48:51 Mammograp hy abnormal 926791656 Active Meggan Littlejohn MD Attn: Accounting ,[address] [facility], [place], [address] [place] [address] , [place] [facility] 2 10:48:50 Constipat ion 51939370 Active Meggan Littlejohn MD Attn: Accounting ,[address] [facility], [place], [address] [place] [address] , [place] [facility] 2 10:48:51 Edema of lower extremity 500541295 Active Meggan Littlejohn MD Attn: Accounting ,[address] [place], [place], [address] [place] [address] , [place] [facility] 2 10:48:50 Pneumonia 021534720 Active 2015 Meggan Littlejohn MD Attn: Accounting ,[address] [place], [place], [address] [place] [address] , [place] [facility] 2 10:46:44 Administr ation of pneumococ melinda vaccine Active 2015 Meggan Littlejohn MD Attn: Accounting ,[address] [place], [place], [address] [place] [address] , [place] [facility] 2 10:48:50 Pain in bilateral legs 25071869707 993825 Active 2015 Meggan Littlejohn MD Attn: Accounting ,[address] [place], [place], [address] [place] [address] , [place] [facility] 2 10:48:50 Contact dermatiti s 13115027 Active 2016 Meggan Littlejohn MD Attn: Accounting ,[address] [place], [place], [address] [place] [address] , [place] [facility] 2 10:48:50 Hypothyro idism 48084549 Active 2016 Meggan Littlejohn MD Attn: Accounting ,[address] [place], [place], [address] [place] [address] , [place] [facility] 2 10:48:51 Pulmonary hypertens ion 50385401 Active 2016 Meggan Littlejohn MD Attn: Accounting ,[address] [place], [address] , [place] [facility] 2 10:46:44 Bilateral arthritis of knees 87423823238 32814 Active 2016 Meggan Littlejohn MD Attn: Accounting ,[address] [place], [address] , [place] [facility] 2 10:48:50 Otitis media 80386432 Active 2016 Meggan Littlejohn MD Attn: Accounting ,[address] [place], [address] , [place] [facility] 2 10:48:50 Anemia 107819333 Active 2016 Meggan Littlejohn MD Attn: Accounting ,[address] [place], [address] , [place] [facility] 2 10:48:50 Screening for malignant neoplasm of breast Active 2016 Meggan Littlejohn MD Attn: Accounting ,[address] [place], [address] , [place] [facility] 2 10:48:51 Administr ation of influenza vaccine Active 2016 Meggan Littlejohn MD Attn: Accounting ,[address] [place], [address] , [place] [facility] 2 10:48:51 Flank pain 872922601 Active 2016 Meggan Littlejohn MD Attn: Accounting ,[address] [place], [address] , [place] [facility] 2 10:48:50 Nuclear senile cataract 028381062 Active 2016 Meggan Littlejohn MD Attn: Accounting ,[address] [place], [address] , [place] [facility] 2 10:48:50 Acute bronchiti s 30230165 Active 2016 Meggan Littlejohn MD Attn: Accounting ,[address] [place], [address] , [place] [facility] 2 10:48:50 Sleep apnea 27122523 Active 2016 Meggan Littlejohn MD Attn: Accounting ,[address] [place], [address] , [place] [facility] 2 10:48:50 Pre-surge ry testing Active 2016 Meggan Littlejohn MD Attn: Accounting ,[address] [place], [address] , [place] [facility] 2 10:48:50 Serum creatinin e outside reference range 174630228 Active 2016 Meggan Littlejohn MD Attn: Accounting ,[address] [place], [address] , [place] [facility] 2 10:48:51 Upper respirato ry infection 99968016 Active 2017 Meggan Littlejohn MD Attn: Accounting ,[address] [place], [address] , [place] [facility] 2 10:48:50 Kidney stone 23690963 Active 2017 Meggan Littlejohn MD Attn: Accounting ,[address] [place], [address] , [place] [facility] 2 10:48:50 Gastroeso phageal reflux disease 537836691 Active 2017 Meggan Littlejohn MD Attn: Accounting ,[address] [place], [address] , [place] [facility] 2 10:48:51 Serum vitamin B12 below reference range 871431425 Active 2017 Meggan Littlejohn MD Attn: Accounting ,[address] [place], [address] , [place] [facility] 2 10:48:50 Acute sinusitis 70533070 Active 2017 Meggan Littlejohn MD Attn: Accounting ,[address] [facility], [place], [address] , [place] [facility] 2 10:48:51 Chronic renal failure 09553051 Active 2017 Meggan Littlejohn MD Attn: Accounting ,[address] [place], [address] , [place] [facility] 2 10:48:51 Acute urinary tract infection 679904861 Active 2017 Meggan Littlejohn MD Attn: Accounting ,[address] [facility], [place], [address] , [place] [facility] 2 10:48:50 Tuberculo sis screening Active 2017 Meggan Littlejohn MD Attn: Accounting ,[address] [place], [address] , [place] [facility] 2 10:48:51 Hepatitis B screening Completed 201704/08/2018 Amol Morrison PA-C Attn: Accounting ,[address] [place], [address] , [place] [facility] 8 12:13:49 Hepatitis B screening required 164654976 Active 2017 Meggan Littlejohn MD Attn: Accounting ,[address] [place], [address] , [place] [facility] 2 10:48:50 Pain of right shoulder joint 08683466290 571012 Active 2017 Meggan Littlejohn MD Attn: Accounting ,[address] [facility], [place], [address] , [place] [facility] 2 10:48:50 Chronic kidney disease 465026751 Active 2018 Meggan Littlejohn MD Attn: Accounting ,[address] [place], [address] , [place] [facility] 2 10:46:45 Essential hypertens ion 04738819 Active 2019 Meggan Littlejohn MD Attn: Accounting ,[address] [facility], [place], [address] , [place] [facility] 2 10:48:50 Vitamin D below reference range 446867281 Active 2020 Meggan Littlejohn MD Attn: Accounting ,[address] [facility], [place], [address] , [place] [facility] 2 10:48:50 Restless legs syndrome 83715036 Active 2020 Meggan Littlejohn MD Attn: Accounting ,[address] [facility], [place], [address] , [place] [facility] 2 10:48:50 Candidias is 77090655 Active 2021 Meggan Littlejohn MD Attn: Accounting ,[address] [facility], [place], [address] , [place] [facility] 2 10:48:50 Irritable bowel syndrome 95684538 Active 2021 Meggan Littlejohn MD Attn: Accounting ,[address] [facility], [place], [address] , [place] [facility] 2 10:48:50 End stage renal failure on dialysis 446735941 Active 2021 Meggan Littlejohn MD Attn: Accounting ,[address] [facility], [place], [address] , [place] [facility] 2 10:48:50 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 815658218 Active 2021 Meggan Littlejohn MD Attn: Accounting ,[address] [facility], [place], [address] , [place] [facility] 2 10:48:50 Legal blindness 73842528 Active 2021 Meggan Littlejohn MD Attn: Accounting ,[address] [facility], [place], [address] , [place] [facility] 2 11:22:08 Referral to ophthalmo logist declined by subject 410315974 Active 2021 Meggan Littlejohn MD Attn: Accounting ,[address] [facility], [place], [address] [place] [address] , [facility] - [facility] 2 11:50:18 Colonosco py declined 57011143457 9100 Active 2021 Meggan Littlejohn MD Attn: Accounting ,[address] [facility], [place], [address] [place] [address] , [facility] - [facility] 2 15:35:39 Tobacco dependenc e in remission 316969941 Active 2021 Meggan Littlejohn MD Attn: Accounting ,[address] [facility], [place], [address] [place] [address] , [facility] - [facility] 2 15:35:51 History of SARS-CoV- 2 80414465895 3688442 Active 2022 Meggan Littlejohn MD Attn: Accounting ,[address] [facility], [place], [address] [place] [address] , [facility] - [facility] 3 16:09:29 Colon cancer screening declined 71659589929 109 Active 2022 Meggan Littlejohn MD Attn: Accounting ,[address] [facility], [place], [address] [place] [address] , [facility] - [facility] 3 16:29:14 SARS-CoV- 2 vaccinati on declined 1316514539 Active 2022 Meggan Littlejohn MD Attn: Accounting ,[address] [facility], [place], [address] [place] [address] , [place] [facility] 3 16:29:15 Ulnar neuropath y of left arm 06261148713 9107 Active 2023 Meggan Littlejohn MD Attn: Accounting ,[address] [facility], [place], [address] [place] [address] , [facility] - [facility] 4 15:46:15 Chronic cerebral ischemia 681698075 Active 2023 Meggan Littlejohn MD Attn: Accounting ,[address] [facility], [place], [address] [place] [address] , [place] [facility] 4 16:20:44 Recurrent falls 929666214 Active 2023 Meggan Littlejohn MD Attn: Accounting ,[address] [facility], [place], [address] , [place] [facility] 4 20:32:26 Osteoarth ritis of joint of right shoulder region 21489096089 9100 Active 2023 Meggan Littlejohn MD Attn: Accounting ,[address] [facility], [place], [address] , [place] [facility] 4 20:35:46 Osteoarth ritis of left hip joint 56746104385 9108 Active 2023 Meggan Littlejohn MD Attn: Accounting ,[address] [facility], [place], [address] , [place] [facility] 4 20:39:08 Heartburn 30300805 Active 2023 Meggan Littlejohn MD Attn: Accounting ,[address] [facility], [place], [address] , [place] [facility] 4 20:39:17 Degenerat ion of cervical intervert ebral disc 08071377 Active 2023 Meggan Littlejohn MD Attn: Accounting ,[address] [facility], [place], [address] , [place] [facility] 4 20:46:07 History of thyroid disorder 525507761 Active 2023 Meggan Littlejohn MD Attn: Accounting ,[address] [facility], [place], [address] , [place] [facility] 4 20:46:11 Notes:Some problems listed i n Documents: #[id number], #[id number], #[id number], #[id number], #[id number], #[id number] could not be added to this patient's chart. Please review these documents and add these problems to the patient's chart manually as needed. Problem Notes None recorded. Procedures Surgical History Date Name Laterality Status Provider Name and Address Organization Details Recorded Time 4 Diabetic Foot Exam completed Meggan Littlejohn MD Attn: Accounting,[address] [facility], [place], [address], [facility] - [facility] 08/01/2023 12:21:21 0 extraction of cataract completed Margaret Hobbs MA [place] - [facility] 02/11/2020 11:53:25 9 procedure completed Margaret Hobbs MA [place] - [place] 04/09/2019 12:01:52 Imaging Results None recorded. Procedure Notes None recorded. Medical Equipment None Reported. Allergies Allergen ID Allergen Name Allergen Category Reaction Reaction Severity Criticality Documentation Date Start Date Code Code System Note Provider Name and Address Organization Details Recorded Time 417204 hydrochlo rothiazid e medicatio n other Not available Not available 05/15/2022 5487 RxNorm Meggan Littlejohn MD Attn: Accountin g,[address] [facility], [place], [address], [facility] - [facility] 2 10:55:11 20380711 captopril medicatio n rash Not available [facility] 03/31/20252024 1998 RxNorm Not Available [employer] Data Service - prod 5 11:20:14 024669 captopril / hydrochlo rothiazid e medicatio n itching Not available high 03/31/2025 95891 7 RxNorm unrec ogniz ed react ion (text : Urtic aria, code: 10786 001) (from exter nal sour e) Not Available [employer] - prod 5 11:20:14 18178 captopril / hydrochlo rothiazid e medicatio n hives Not available Not available 09/27/2015 08228 7 RxNorm Layla Velarde MA [facility], [place] - [place] 6 12:39:51 Medications Name Sig [...] TAKE 1 TABLET BY MOUTH TWICE DAILY 01/26 completed Not Available Not Available Not Available bumetanid e 2 mg tablet 10/09 [...] day by oral route for 90 days. 01/01 completed ER Not Available Not Available Not Available fluconazo [...] e ER 30 mg tablet,ex tended release Take 1 tablet every day by oral route. active PRN Not Available Not Available No t Available acetamino phen 300 mg-codein e 30 [...] Not Available Not Available No t Available Macrobid 100 mg capsule Take 1 capsule every 12 hours by oral route for 10 days. 03/28 completed Not Available Not Available Not Available citalopra m 20 mg tablet Take [...] and Address Organization Details Last Updated DateTime 170.18 cm 28.2 kg/m2 15107.6 3 g 99 % 99 % 78 /min 94/58 mm[Hg] Iza Danielle MA [facility] 5 16:34:24 Date Recorded Body height Body mass index (BMI) Body weight Oxygen saturation Oxygen saturation in Arterial blood by Pulse oximetry Heart rate Systolic And Diastolic Provider Name and Address Organization Details Last Updated DateTime 5 170.18 cm 28.2 kg/m2 45444.6 3 g 98 % 98 % 91 /min 110/64 mm[Hg] Iza Danielle MA [facility] 5 11:51:16 Date Recorded Body height Body mass index (BMI) Body weight Oxygen saturation Oxygen saturation in Arterial blood by Pulse oximetry Heart rate Systolic And Diastolic Provider Name and Address Organization Details Last Updated DateTime 5 170.18 cm 27.9 kg/m2 23229.4 4 g 97 % 97 % 82 /min 116/78 mm[Hg] Iza Danielle MA [facility] 5 11:02:52 Date Recorded Body height Body mass index (BMI) Body weight Oxygen saturation Oxygen saturation in Arterial blood by Pulse oximetry Heart rate Systolic And Diastolic Provider Name and Address Organization Details Last Updated DateTime 5 170.18 cm 29.3 kg/m2 50263.7 7 g 100 % 100 % 81 /min 182/82 mm[Hg] Iza Danielle MA [facility] 5 11:18:56 Date Recorded Body height Body mass index (BMI) Body weight Oxygen saturation Oxygen saturation in Arterial blood by Pulse oximetry Heart rate Respiratory rate Systolic And Diastolic Provider Name and Address Organization Details Last Updated DateTime 5 170.18 cm 28.5 kg/m2 84049.8 1 g 99 % 99 % 71 /min 16 /min 128/84 mm[Hg] JORJE Zamudio [facility] 5 10:57:51 Social History Question Answer Notes LastModified by Organizat ion Details LastModified Time Tobacco Smoking Status Former Smoker 1989 Meggan Littlejohn MD Attn: Accounting,[address] [place], [address], [facility] 05/15/2022 11:07:32 Do You Have An Advance [...] Date Of Your Most Recent Tobacco Screening? 03/11/2025 Information not available 03/11/2025 What Is Your Current Pack Years? 20-29packyea [...] What Date Was Tobacco Cessation Counseling Provided? 03/11/2025 Information not available 03/11/2025 Sex: Female Functional Status Question Answer Note [...] 09/20/2020 Are you able to care for yourself independently? Yes Information not available 09/20/2020 What is your exercise level? Occasional Information not available 09/20/2020 Mental Status Question Answer Note LastModified by Organization D etails LastModified Time Do you feel stressed (tense, restless, nervous, or anxious, or unable to sleep at night)? [id number] Information not available 09/20/2020 Family History Relationship Description Onset Age of this Age Resolved Age Notes LastModified by Organization Details LastModified Time Mother Malignant neoplasm of breast [email or web address] Not available 2015 12:42:56 [...] available 2015 12:42:56 Medical History Condition Response Diabetes Y Anxiety Disorder Y High Blood Pressure Y High Cholesterol Y Hepatitis Y Depression Y Blood Clots Y Heart Failure Y Gynecological HistoryNo gynecological history recorded. Obstetrics History GPAL:G 0 P 0 0 0 0 Immunizations Vaccine Type Date Status Note Provider Nam e and Address Organization Details Recorded Time influenza, unspecified formulation 2 completed Meggan Littlejohn MD Attn: Accounting[address] [facility], [place], [address], [place] [facility] 05/15/2022 10:46:19 Influenza, split virus, quadrivalent, PF 6 completed Meggan Littlejohn MD Attn: Accounting[address] [facility], [place], [address], [place] [facility] 05/15/2022 10:46:19 pneumococcal polysaccharide PPV23 6 completed Not Available [facility] 06/27/2019 02:39:52 influenza, unspecified formulation 3 completed Meggan Littlejohn MD Attn: Accounting[address] [facility], [place], [address], [place] [facility] 08/01/2023 11:45:05 influenza, unspecified formulation 2 completed Not Available [facility] 03/11/2025 10:48:30 Influenza, split virus, quadrivalent, preservative 7 completed [facility] Available [facility] 06/27/2019 02:34:00 Influenza, split virus, quadrivalent, preservative 9 completed Not Available [facility] 06/27/2019 02:38:43 Influenza, split virus, quadrivalent, preservative 0 completed Margaret Hobbs [place], [place] [facility] 04/14/2020 10:36:24 Influenza, split virus, quadrivalent, preservative 1 completed Maggy Brooks [place], [place] [facility] 05/25/2021 10:48:19 Pneumococcal conjugate PCV20, polysaccharide QIO001 conjugate, adjuvant, PF 3 completed Sheryl Nascimento [place], [place] [facility] 10/09/2022 10:45:27 Tdap 4 completed Sheryl Nasc[place], [place] [facility] 08/01/2023 16:57:15 Past Encounters Encounter ID Performer Location Encounter Start Date Encounter Closed Date Diagnosis/Indication Diagnosis SNOMED-CT Code Diagnosis ICD10 Code Diagnosis IMO Codes Diagnosis Note [id number] [facility] (Adult Med) [address] [place] [phone] 09/27/2015 12:10:49 09/27/2015 14:34:15 Folliculitis 89808612 L73.9 Hallux valgus 236430140 M20.10 Type 2 meme betes mellitus 49252166 E11.9 Obesity 983712274 E66.9 Hypertensive disorder 38 180621 I10 Hyperlipidemia 64405114 E78.5 [id number] [facility] (Adult [facility]) [address] [place] [id number] 0 10/26/2015 10:12:37 10/26/2015 11:28:01 Normal grief reaction 059744228 F43.20 Hyperlipidemia 26712834 E78.5 Hypertensive disorder 38 712112 I10 Obesity 155218270 E66.9 Type 2 meme betes mellitus 99286708 E11.9 [id number] MD Cisco Sampson (Adult Med) [address] [place] [phone] 0 12/21/2015 10:37:47 12/21/2015 11:20:29 Congestive heart failure 44062750 I50.9 Hyperlipidemia 36815212 E78.5 Hypertensive disorder 38 705430 I10 Obesity 991991219 E66.9 Type 2 meme betes mellitus 91075945 E11.9 Screening for malignant neoplasm of breast 535791786 Z12.31 Anxiety 51314029 F41.9 [id number] MD Cisco Sampson (Adult Med) [address] [place] [address] [phone] 0 02/22/2016 09:29:57 02/22/2016 10:53:31 Folliculitis 74282175 L73.9 Congestive heart failure 67561951 I50.9 Obesity 377515287 E66.9 Type 2 meme betes mellitus 09979513 E11.9 Constipation 39670038 K5 9.00 [id number] MD Cisco Sampson (Adult Med) [address] [place] [id number] 03/28/2016 12:29:31 03/28/2016 13:28:39 Folliculitis 43016165 L73.9 Administra tion of pneumococcal vaccine 37406872 Z23 [id number] MD Cisco Sampson (Adult Med) [address] [place] [address] [id number] 07/17/2016 14:07:59 07/17/2016 14:54:53 Edema of lower extremity 895666374 R60.0 Contact dermatitis 54261 004 L25.9 Type 2 meme betes mellitus 90096370 E11.9 Anxiety 70481934 F41.9 Hyperlipidemia 40136704 E78.5 Hypertensive disorder 38 018310 I10 Obesity 985411353 E66.9 Congestive heart failure 99626175 I50.9 [id number] MD Cisco Sampson (Adult Med) [address] [place] [address] [id number] 0 10/09/2016 10:14:57 10/10/2016 09:26:01 Congestive heart failure 58764271 I50.9 Type 2 meme betes mellitus 36242090 E11.9 Obesity 488963625 E66.9 Hyperlipidemia 78984133 E78.5 Hypothyroidism 86034298 E03.9 [id number] [facility] (Adult Med) [address] [place] [address] [id number] 0 11/01/2016 10:54:39 11/01/2016 11:38:04 Congestive heart failure 49802120 I50.9 Type 2 meme betes mellitus 23176130 E11.9 Obesity 702553614 E66.9 Hypertensive disorder 38 401080 I10 Hyperlipidemia 06027749 E78.5 Anxiety 51826603 F41.9 Edema of l ower extremity 108844965 R60.0 Hypothyroidism 09797386 E03.9 [id number] MD Cisco Sampson (Adult Med) [address] [place] [address] [id number] 12/07/2016 09:20:51 12/07/2016 16:52:10 Pulmonary hypertension 03028382 I27.2 Hypothyroidism 40102811 E03.9 Congestive heart failure 41099199 I50.9 Type 2 meme betes mellitus 45402364 E11.9 Obesity 128430572 E66.9 Hypertensive disorder 38 383867 I10 Hyperlipidemia 04211056 E78.5 Bilateral arthritis of knees 2434396315 024041 M13.861 Otitis media 17238971 H6 6.92 [id number] MD Cisco Sampson (Adult Med) [address] [place] [address] [id number] 0 01/03/2017 11:31:13 01/03/2017 12:22:25 Type 2 diabetes mellitus 02783938 E11.9 Congestive heart failure 47477610 I50.9 Hypertensive disorder 38 652797 I10 Obesity 139216844 E66.9 Hypothyroidism 62977380 E03.9 Edema of l ower extremity 461036764 R60.0 Anxiety 84466323 F41.9 Hyperlipidemia 78843883 E78.5 Constipation 10141723 K5 9.00 Folliculitis 20849545 L7 3.9 Anemia 047249084 D64.9 Screening for malignant neoplasm of breast 786425028 Z12.31 [id number] MD Cisco Sampson (Adult Med) [address] [place] [address] [id number] 0 01/31/2017 10:49:52 01/31/2017 11:48:03 Hypothyroidism 00098870 E03.9 Anemia 012113212 D64.9 Pulmonary hypertension 42860221 I27.2 Anxiety 83798206 F41.9 Hyperlipidemia 69686998 E78.5 Hypertensive disorder 38 514255 I10 Congestive heart failure 59582796 I50.9 Type 2 meme betes mellitus 40975262 E11.9 [id number] Mariana Isidro MD [facility] (Adult Med) [address] [place] [address] 64217-812 0 02/28/2017 11:16:22 03/04/2017 11:39:30 Congestive heart failure 96317025 I50.9 Type 2 meme betes mellitus 89015339 E11.9 Obesity 343770897 E66.9 Hypertensive disorder 38 460296 I10 Hyperlipidemia 75346863 E78.5 Anxiety 48372560 F41.9 Edema of l ower extremity 269783086 R60.0 Administra tion of influenza vaccine 81845857 Z23 [id number] Mariana Isidro MD [facility] (Adult Med) [address] [place] [address] 04354-226 0 03/06/2017 10:03:08 03/06/2017 11:02:58 Flank pain 682349417 R10.9 Pulmonary hypertension 08395846 I27.2 Hypothyroidism 50184836 E03.9 Hyperlipidemia 20264889 E78.5 Obesity 771079139 E66.9 Congestive heart failure 50252068 I50.9 Type 2 meme betes mellitus 95383890 E11.9 [id number] [facility] [address] [place] [address] 78580-173 0 05/07/2017 09:17:46 05/07/2017 10:15:11 Acute bronchitis 46052646 J20.9 Type 2 meme betes mellitus 05263235 E11.42 Congestive heart failure 95583396 I50.9 Obesity 003373215 E66.9 Sleep apnea 00271133 G47 .30 Pulmonary hypertension 31094281 I27.20 Hypothyroidism 11622554 E03.9 Hyperlipidemia 80654319 E78.5 Hypertensive disorder 38 365708 I10 [id number] [facility] [address] [place] [address] 03612-573 0 05/29/2017 11:37:07 05/29/2017 12:37:36 Pre-surgery testing 686258643 Z01.89 Sleep apnea 20966532 G47 .30 Pulmonary hypertension 15234467 I27.20 Hypothyroidism 36652058 E03.9 Hyperlipidemia 13232748 E78.5 Congestive heart failure 21062665 I50.9 Type 2 meme betes mellitus 21913351 E11.42 [id number] MD Cisco Sampson (Adult Med) [address] [place] [address] 73862-768 0 07/09/2017 11:59:20 07/09/2017 12:54:52 Upper respiratory infection 87044077 J06.9 Type 2 meme betes mellitus 21461934 E11.42 [id number] MD Cisco Sampson (Adult Med) [address] [place] [address] 26373-570 0 08/14/2017 09:42:41 08/14/2017 10:32:48 Gastroesophageal reflux disease 442513270 K21.9 Sleep apnea 89163495 G47 .30 [id number] [facility] [address] [place] [address] 25337-623 0 09/17/2017 11:02:56 09/17/2017 14:34:21 Serum vitamin B12 below reference range 381997587 R79.89 Acute sinusitis 79202494 J01.90 Type 2 meme betes mellitus 20691563 E11.42 Acute bronchitis 2546471 2 J20.9 Sleep apnea 67594605 G47 .30 Pulmonary hypertension 61216677 I27.20 Hypothyroidism 94885740 E03.9 Hyperlipidemia 15703232 E78.5 Obesity 388807327 E66.9 [id number] Mariana Isidro MD [facility] (Adult Med) [address] [place] [address] 17149-694 0 12/03/2017 10:47:40 12/04/2017 23:44:27 Acute urinary tract infection 062835659 N39.0 Chronic renal failure 90 466165 N18.9 Congestive heart failure 16074105 I50.9 Type 2 meme betes mellitus 40866566 E11.42 Obesity 891291929 E66.9 Hypertensive disorder 38 916592 I10 Hyperlipidemia 61014949 E78.5 Hypothyroidism 48133634 E03.9 Pulmonary hypertension 57061551 I27.20 Anemia 498543951 D64.9 [id number] Mariana Isidro MD [facility] (Adult Med) [address] [place] [address] 45805-588 0 12/03/2017 11:00:35 12/03/2017 12:02:12 Anemia 127147879 D64.9 Type 2 meme betes mellitus 91637926 E11.42 Acute urin katelynn tract infection 695913863 N39.0 [id number] Mairana Isidro MD [facility] (Adult Med) [address] [place] [address] 75897-892 0 04/08/2018 10:46:30 04/08/2018 12:59:56 Tuberculosis screening 622704789 Z11.1 Hepatitis B screening required 114482532 Z78.9 Pain of ri ght shoulder joint 5469765433 6935960 M25.511 Anemia 953305380 D64.9 Type 2 meme betes mellitus 77741540 E11.42 Serum ben min B12 below reference range 466593779 R79.89 Gastroesop hageal reflux disease 316485485 K21.9 Kidney stone 62791789 N2 0.0 Sleep apnea 83279292 G47 .30 Pulmonary hypertension 00460255 I27.20 Hypothyroidism 90242777 E03.9 Hyperlipidemia 04984134 E78.5 Obesity 904812057 E66.9 Congestive heart failure 62001814 I50.9 Hypertensive disorder 38 329398 I10 [id number] MD Cisco Sampson (Adult Med) [address] [place] [address] 34058-989 0 10/09/2018 10:28:45 10/09/2018 11:15:53 Gastroesophageal reflux disease 647109055 K21.9 Sleep apnea 94574494 G47 .30 Anemia 772451562 D64.9 Pulmonary hypertension 77959990 I27.20 Congestive heart failure 63717959 I50.9 Type 2 meme betes mellitus 25899734 E11.42 Chronic renal failure 90 150393 N18.6 Serum ben min B12 below reference range 357611552 R79.89 Bilateral arthritis of knees 4283082941 258016 M13.861 Hypothyroidism 51519081 E03.9 Hyperlipidemia 33355135 E78.5 Constipation 16112660 K5 9.00 Hypertensive disorder 38 987612 I10 Obesity 288647216 E66.9 [id number] [facility] (Adult Med) [address] [place] [address] 85756-748 0 01/27/2019 10:44:56 01/28/2019 09:13:39 Screening for malignant neoplasm of breast 218972144 Z12.31 Chronic renal failure 90 997392 N18.6 Gastroesop hageal reflux disease 590833315 K21.9 Sleep apnea 04418663 G47 .30 Pulmonary hypertension 90384937 I27.20 Hypothyroidism 17615089 E03.9 Hyperlipidemia 73410444 E78.5 Type 2 meme betes mellitus 74239512 E11.42 Congestive heart failure 03833305 I50.9 Hypertensive disorder 38 146518 I10 Obesity 648100893 E66.9 [id number] MD Cisco Sampson (Adult Med) [address] [place] [address] 31828-905 0 04/09/2019 11:26:39 04/09/2019 12:53:47 Chronic kidney disease 382743582 N18.9 Dialysis- M,W,F Tuberculos is screening 885738463 Z11.1 Screening for malignant neoplasm of breast 151753193 Z12.31 Administra tion of influenza vaccine 01414771 Z23 Aneurysm o f artery of upper extremity 25732176 I72.1 Surgical interventi on and removal on 03/31/19. Sutures intact. Congestive heart failure 61201105 I50.9 Serum ben min B12 below reference range 095220320 R79.89 Gastroesop hageal reflux disease 338982455 K21.9 Sleep apnea 88681404 G47 .30 Pulmonary hypertension 23748873 I27.20 Bilateral arthritis of knees 8944803910 448324 M13.861 Hypothyroidism 50860279 E03.9 Hypertensive disorder 38 707930 I10 Type 2 meme betes mellitus 82385785 E11.42 [id number] MD Cisco Sampson (Adult Med) [address] [place] [address] 15808-861 0 04/30/2019 11:08:38 04/30/2019 12:00:44 Congestive heart failure 56410682 I50.9 Gastroesop hageal reflux disease 163164817 K21.9 Anemia 656340260 D64.9 Bilateral arthritis of knees 8637561405 843090 M13.861 Chronic renal failure 90 498700 N18.6 Hyperlipidemia 81616433 E78.5 Hypothyroidism 15763782 E03.9 Obesity 923780274 E66.9 Pulmonary hypertension 11293701 I27.20 Serum ben min B12 below reference range 239328732 R79.89 Sleep apnea 98083226 G47 .30 Type 2 meme betes mellitus 55166161 E11.42 [id number] MD Cisco Sampson (Adult Med) [address] [place] [address] 51296-389 0 06/22/2019 13:51:13 06/23/2019 12:44:00 Type 2 diabetes mellitus 33170410 E11.21 Advised to stop aspirin, for at least 5 days prior to eye operation. , DR. Bart. Jhon Brooks office informed. No medical contraindi cation for operation. # . End stage renal failure on dialysis 667481535 Z99.2 On chronic renal dialysis. Bilateral cataracts 9572 2004 H26.9 Ok for eye operation, but has to stop aspirin 5 days prior to surgery. [id number] MD Cisco Sampson (Adult Med) [address] [place] [address] 40676-276 0 02/11/2020 08:44:37 02/11/2020 13:28:18 Type 2 diabetes mellitus 24689831 E11.42 Pulmonary hypertension 71915768 I27.20 Anxiety 81894972 F41.9 Bilateral arthritis of knees 5029404094 208772 M13.861 Chronic ki dney disease 868128184 N18.9 Dialysis- M,W,F Congestive heart failure 76397041 I50.9 Edema of l ower extremity 404477565 R60.0 Essential hypertension 30674532 I10 Gastroesop hageal reflux disease 900815427 K21.9 Hyperlipidemia 24249644 E78.5 Hypothyroidism 78769860 E03.9 Obesity 144718717 E66.9 Pain in bi lateral legs 7846015024 5331629 M79.605 Serum ben min B12 below reference range 127901799 R79.89 Sleep apnea 36573246 G47 .30 [id number] MD Cisco Sampson (Adult Med) [address] [place] [address] 57311-576 0 04/14/2020 08:09:07 04/14/2020 10:42:17 Administration of influenza vaccine 10379297 Z23 Type 2 meme betes mellitus 62069096 E11.42 Screening for malignant neoplasm of breast 438617464 Z12.31 Gastroesop hageal reflux disease 759949715 K21.9 Anxiety 56831320 F41.9 Essential hypertension 44878381 I10 Hyperlipidemia 28605706 E78.5 Hypothyroidism 87252598 E03.9 Pulmonary hypertension 80921021 I27.20 Sleep apnea 58582833 G47 .30 [id number] [facility] [address] [place] [address] 85426-808 0 06/14/2020 09:31:52 06/14/2020 12:07:27 Essential hypertension 90354500 I10 Gastroesop hageal reflux disease 037650735 K21.9 Hyperlipidemia 41508836 E78.5 Hypothyroidism 46941158 E03.9 Pulmonary hypertension 32257579 I27.20 Serum ben min B12 below reference range 780714467 R79.89 Sleep apnea 01974384 G47 .30 Type 2 meme betes mellitus 69392375 E11.42 Anemia 937363320 D64.9 Anxiety 09296007 F41.9 Chronic ki dney disease 384371367 N18.9 Dialysis- M,W,F Congestive heart failure 62743674 I50.9 Constipation 52872269 K5 9.00 Hallux valgus 926293811 M20.10 Hypertensive disorder 38 323194 I10 [id number] MD Cisco Sampson (Adult Med) [address] [place] [address] 78018-826 0 06/28/2020 16:03:02 06/29/2020 11:29:24 Screening mammography 03790713 Z12.31 Tuberculos is screening 328575923 Z11.1 Pulmonary hypertension 35096742 I27.20 [id number] MD Cisco Sampson (Adult Med) [address] [place] [address] 45934-557 0 07/14/2020 08:57:30 07/21/2020 03:47:41 [id number] MD Cisco Sampson (Adult Med) [address] [place] [address] 74462-451 0 08/09/2020 08:15:04 08/09/2020 10:30:02 Anxiety 56535368 F41.9 Bilateral arthritis of knees 6445210072 815273 M13.861 Chronic renal failure 90 504810 N18.6 Congestive heart failure 26451746 I50.9 Essential hypertension 25836732 I10 Gastroesop hageal reflux disease 216880951 K21.9 Hyperlipidemia 51879720 E78.5 Hypothyroidism 59496639 E03.9 Obesity 551221891 E66.9 Pulmonary hypertension 97473953 I27.20 Serum ben min B12 below reference range 687501684 R79.89 Sleep apnea 65083988 G47 .30 Type 2 meme betes mellitus 45255680 E11.42 Anemia 141357860 D64.9 Vitamin D below reference range 395465335 E55.9 [id number] MD Cisco Sampson (Adult Med) [address] [place] [address] 84240-361 0 09/20/2020 08:40:59 09/22/2020 11:17:11 Anemia 022139771 D64.9 Congestive heart failure 15110580 I50.9 Vitamin D below reference range 348737271 E55.9 Essential hypertension 59299738 I10 Gastroesop hageal reflux disease 641986502 K21.9 Hyperlipidemia 14704535 E78.5 Hypertensive disorder 38 185028 I10 Hypothyroidism 20086539 E03.9 Pulmonary hypertension 53930941 I27.20 Serum ben min B12 below reference range 658190337 R79.89 Sleep apnea 84909805 G47 .30 Type 2 meme betes mellitus 02388861 E11.42 Anxiety 58796209 F41.9 Bilateral arthritis of knees 6521502246 324494 M13.861 Chronic renal failure 90 962122 N18.6 Restless l egs syndrome 02819772 G25.81 [id number] MD Cisco Washburn (Adult Med) [address] [place] [address] 87421-411 0 05/25/2021 09:42:59 05/25/2021 13:14:36 Administration of influenza vaccine 84000584 Z23 [id number] MD Cisco Sampson (Adult Med) [address] [place] [address] 21365-450 0 07/20/2021 11:59:05 07/21/2021 12:31:34 Congestive heart failure 36905039 I50.9 Vitamin D below reference range 772770728 E55.9 Essential hypertension 15146366 I10 Gastroesop hageal reflux disease 477588915 K21.9 Hallux valgus 340968863 M20.10 Hyperlipidemia 11439802 E78.5 Hypothyroidism 94135208 E03.9 Pulmonary hypertension 41868786 I27.20 Restless l egs syndrome 27388889 G25.81 Serum ben min B12 below reference range 035256405 R79.89 Sleep apnea 70088892 G47 .30 Type 2 meme betes mellitus 09009445 E11.42 E11.621 Candidiasis 07268155 B37 .9 Irritable bowel syndrome 62086053 K58.9 Anemia 015460894 D64.9 Anxiety 44177479 F41.9 Bilateral arthritis of knees 0195933198 720425 M13.861 Chronic ki dney disease 778545680 N18.9 Dialysis- M,W,F [id number] MD Cisco Terrell (Adult Med) [address] [place] [address] 94170-219 0 05/15/2022 10:25:04 05/16/2022 10:26:24 Screening for malignant neoplasm of breast 126679855 Z12.39 Administra tion of diphtheria, pertussis, and tetanus vaccine 396813549 Z23 General ex amination of patient 161250681 Z00.01 Ulcer of toe 261832712 L 97.509 Type 2 meme betes mellitus 76540765 E11.42 E11.621 Screening for malignant neoplasm of colon 559954094 Z12.11 Colonoscopy declined 575 8909337 31051 Z53.20 Body mass index 30+ - obesity 498404422 Z68.35 SARS-CoV-2 mRNA vaccine declined 6100513883 Z28.21 Legal blindness 22536169 H54.8 Cough 04119262 R05.9 Onychomyco sis of toenails 274641259 B35.1 Tobacco de pendence in remission 328263881 F17.201 Requires a tetanus booster 905485235 Z28.39 Referral t o welcome center agent declined by subject 603976039 Z53.20 [id number] MD Cisco Terrell (Adult Med) [address] [place] [address] 74398-369 0 10/08/2022 15:47:47 10/11/2022 10:58:01 Medication monitoring 188134340 Z51.81 Follow-up visit 93742512 9 Z09 History of SARS-CoV-2 29 45773980 92156411 Z86.16 06/2022 Physical deconditioning 0044282398 9102 R68.89 SARS-CoV-2 vaccination declined 9627183510 Z28.21 Colon canc er screening declined 7276627990 9109 Z53.20 Administra tion of pneumococcal vaccine 94652101 Z23 Type 2 meme betes mellitus 63058440 E11.42 E11.621 On TrulicityR estart Lipitor Legal blindness 74791153 H54.8 Medication review done by doctor 578705047 Z76.89 [id number] MD Cisco Terrell (Adult Med) [address] [place] [address] 62996-665 0 08/01/2023 11:12:55 08/05/2023 16:20:26 Type 2 diabetes mellitus 76758403 E11.42 E11.621 Labs OV 10/08/2022On TrulicityR estart Lipitor Medication monitoring 39 2947239 Z51.81 Colon canc er screening declined 2727854851 9109 Z53.20 Medication review done by doctor 160052112 Z76.89 Screening mammography 24 408784 Z12.31 Colonoscopy declined 056 4957423 11774 Z53.20 Neuropathy 402605962 G62 .9 Chronic neck pain 886547 1474 107 M54.2 Pain of ri ght shoulder joint 0986658467 8923636 M25.511 Difficulty walking 53082 2002 R26.2 Administra tion of diphtheria, pertussis, and tetanus vaccine 608081544 Z23 Tinea pedis 9546183 B35. 3 [id number] Meggan Littlejohn MD [facility] (Adult Med) [address] [place] [address] 11/25/2023 15:15:42 11/28/2023 15:15:54 Body mass index 30+ - obesity 248840855 Z68.31 Obesity 129847388 E66.8 Type 2 meme betes mellitus 73743625 E11.42 E11.621 Stable, HBA1C 6.8% on 08/01/2023 OV 08/01/2023L abs OV 10/08/2022On TrulicityR estart Lipitor Chronic neck pain 379437 6330 107 M54.2 Difficulty walking 73237 2002 R26.2 She needs a K5 PMD to meet her ADLs Ulnar neur opathy of left arm 6108639644 82791 G56.22 Her options including a referral to the orthopedic surgeon were discussed, she would like to try a splint. Pain of le ft knee joint 4299795132 64795 M25.562 The xray done on 09/06/2023 which preceded her most recent fall was suggestive of OA of the left knee. Degenerati on of cervical intervertebral disc 07321250 M50.30 History of thyroid disorder 857384725 Z86.39 Previously on Thyroid replacemen tTSH 5.05 on 4R echeck labs and consider if there is a need to restart Thyroid replacemen t Recurrent falls 66284900 2 R29.6 Chronic ce rebral ischemia 280401924 I67.82 Discussed in detail, noted on the 09/06/2023 CT scan of the brain and the 09/11/2023 MRI of the brain.Gardner tid US < 50 % 09/11/2023TT E 09/11/2023Id eally she should be on Atorvastat in, this was filled on 11/19/2023 as per her EHR, salvador carreon, she cannot confirm this. Heartburn 76372163 R12 Osteoarthr itis of joint of right shoulder region 8390122242 41697 M19.011 Osteoarthr itis of left hip joint 5858521598 84823 M16.12 [id number] Meggan Littlejohn MD [facility] ([facility]) [address] [place] [address] 43752-429 0 01/02/2024 10:32:47 01/07/2024 11:21:39 Chronic cerebral ischemia 818968311 I67.82 Discussed again in great detail as [...] confirm this. Type 2 meme betes mellitus 92540968 E11.42 E11.621 Stable, HBA1C 6.8% on 08/01/2023 OV 08/01/2023L abs OV 10/08/2022On TrulicityR estart Lipitor Heartburn 04470080 R12 Lifestyle changes were discussedG I Osteoarthr itis of knee 082866964 M17.9 Diabetes mellitus 643581 09 E11.9 [id number] Mamadou Haq MD [facility] [address] [place] [address] 10/27/2024 09:35:38 10/28/2024 11:36:57 Essential hypertension 29084570 I10 81374 well controlled Mixed hyperlipidemia 267 152767 E78.2 03899 Gastroesop hageal reflux disease without esophagitis 074703308 K21.9 196728 Type 2 meme betes mellitus 61366332 E11.9 12953394 Nausea 180532841 R11.0 38713 Overweight in adulthood with body mass index of 25 or more but less than 30 173106871 Z68.28 688987 [id number] Mamadou Haq MD [facility] [address] [place] [address] 12/17/2024 11:39:39 12/18/2024 09:25:29 Hypertensive disorder 21827527 I10 well controlled Chronic renal failure 90 682080 N18.5 94400196 Screening for malignant neoplasm of colon 744812011 Z12.11 574003 Acute urin katelynn tract infection 490079104 N39.0 049024 Muscle wea kn[place] of limb 268181178 R29.898 6246151218 Essential hypertension 80735851 I10 01749 well controlled Overweight in adulthood with body mass index of 25 or more but less than 30 258645995 E66.3 Z68.28 4197181618 [id number] Mamadou Haq MD [address] [address] 12/31/2024 16:25:59 01/01/2025 15:02:50 Chronic renal failure 10580507 N18.5 65618055 History of cerebrovascular accident 189482794 Z86.73 775475 Low blood pressure 63465 003 I95.9 45177717 given a bp monitor..a lso will call cardiologi and discuss Overweight in adulthood with body mass index of 25 or more but less than 30 112427508 E66.3 Z68.28 1613454795 Well contr olled type 2 diabetes mellitus 770130445 E11.9 235383 [id number] Mamadou Haq MD [facility] [address] [place] [address] 01/12/2025 11:43:16 01/13/2025 14:54:41 Chronic kidney disease stage 5 828308372 N18.5 0414918 History of cerebrovascular accident 981837556 Z86.73 6650186 Well contr olled type 2 diabetes mellitus 865420014 E11.9 536873 Overweight in adulthood with body mass index of 25 or more but less than 30 983738628 E66.3 Z68.28 3194791843 [id number] Mamadou Haq MD [facility] [address] [place] [address] 01/26/2025 10:45:05 01/27/2025 10:44:08 Blood-tinged feces 0208019883 16232 K92.1 7670 Chronic anemia 244195938 D64.9 D50.0 986172 Uncontroll ed type 2 diabetes mellitus 829740528 E11.65 63237236 Overweight in adulthood with body mass index of 25 or more but less than 30 330168145 Z68.27 141634 [id number] Mamadou Haq MD [facility] [address] [place] [address] 02/11/2025 11:00:32 02/12/2025 09:25:20 Essential hypertension 38593328 I10 will call tomorrow with readings Type 2 meme betes mellitus 20711047 E11.9 At [facility] ed risk for falls 028126260 Z91.81 4824612 [id number] Alvina Velasquez PA-C [facility] [address] [place] [address] 03/11/2025 10:47:35 2025 13:09:15 Blood in urine 72957053 R31.9 25000965 Acute urin katelynn tract infection 817674204 N39.0 876435 Chronic renal failure 90 516705 N18.5 48536473 Health Concerns Section Related Observation LastModified by Organization Detai ls LastModified Time None Recorded Concern Status LastModified by Organization Details LastModified Time None Recorded Advance Directives Directive Y: Payers Insurance Date Sequence Insurance Name Policy Number Policy Olivares Covered Member ID Olivares Member ID Guarantor Name 12/17/2024 2 [facility] PRIOR TO 12/08/2020 (MEDICAID REPLACEMENT - HMO) Zuleyka Tinoco [id number] Zuleyka Tinoco 12/17/2024 2 [facility] PRIOR TO 12/08/2020 (MEDICAID REPLACEMENT - HMO) Zuleykachely Guerrerosusi [id number] Zuleyka Tinoco 12/17/2024 2 [facility] - DOS ON OR AFTER 20 (MEDICAID REPLACEMENT - HMO) Zuleyka Guerrerosusi [id number] Zuleykachely Tinoco 12/17/2024 2 [place] WHEN [place]ARE [place] MEDICARE REPLACEMENT PRIMARY) Zuleykachely Guerrerosusi [id number] Zuleykachely Tinoco 12/17/2024 1 [place] Zuleykachely Guerrerosusi [id number] Zuleykachely Tinoco 2025 1 [facility] (MEDICARE REPLACEMENT/A DVANTAGE - HMO) [id number] Zuleyka Guerrerosusi [id number] Zuleykachely Diazfrancisco javier 03/10/2025 2 [place] OR [place]IC[place] REPLACEMENT PRIMARY) Zuleykachely Guerrerosusi [id number] Zuleyka Tinoco Notes Date Note Type Note Provider Name and Address Organization Details Recorded Time 12/31/2024 text/html ROS as noted in the HPI pt on carvedilol and nifedipine.. per physical therapy aides teacher...got hypotensive at phys therapy... hx of cva...went home and ate relaxed..and came up a little later...still somewhat low...takes dialysis currently and is limited on fluid intake.. Alvina Velasquez PA-C Attn: [address] [place], [address], [facility] 12/31/2024 16:52:30 01/12/2025 text/html ROS as noted in the HPI ER follow up vs dizziness and hypotension..meds were changed from amlodipine to nifedipine..ira reaves better now..just came from therapy where they wrung her out today Alvina Velasquez PA-C Attn: [address] [place], [address], [facility] 01/12/2025 12:27:29 01/26/2025 text/html ROS as noted in the HPI has been having issues with black stools and anemia..blood pressure fluctuating..has a GI referral upcoming...[facility]...waiting for a kidney transplant Alvina Velasquez PA-C Attn: Accounting[address] [facility], [place], [address], [facility] 01/26/2025 11:47:39 02/11/2025 text/html ROS as noted in the HPI hx of orthostatic hypotension and pulmonary hypertension...ost eoarthritis...need s a parking plaque..also during colonoscopy prep her BP surged and her sugar dropped..today BP is high...sees cardiology on Saturday next week..needs a hospital bed also..has a problem of falls from bed recently and is at risk for hip and leg fracture... Alvina Velasquez PA-C Attn: Accounting[address] [place], [address], [facility] 02/11/2025 12:04:23 03/11/2025 text/html ROS as noted in the HPI symptoms of uti also is a dialysis patient so is unable to give sample..also transplant team for kidneys needs endo referral Alvina Velasquez PA-C Attn: Accounting[address] [place], [address], [facility] 03/11/2025 11:31:08 OBGyn Episode No OBEpisode recorded.
--- OUTSIDE RECORDS SUMMARY | 2025-04-06 01:04 | XMS_ITS | Clinical Summary ---
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 Gender Identity Not on file Sexual Orientation Not on file Plan of Treatment Upcoming Encounters Date Type Department Care Team (Late st Contact Info) Description 08/26/2025 9:30 AM CDT [facility] [address] [place] [address] Lj Dyer MD [address] [place] [id number] Health Maintenance Due Date Last Done Comments [...] MEDICARE C [employer] [place] Care Teams Engineer Booster And Exhauster Relationship Specialty Start Date End Date Griffin Velasquez, [facility] [address] [place] [phone] PCP - General Physician Local Owner Operator Truck Driver 02/25/25
--- OUTSIDE RECORDS SUMMARY | 2025-04-06 01:04 | XMS_ITS | Encounter Summary ---
Author Organization [facility] Address [address] [facility] [place] [address] Phone Care Team Providers Care Wire Weaver Name Role Phone Griffin Velasquez Primary Care Provider [phone] Encounter Details Date Type Department Care Team (Late st Contact Info) Description 06/29/2022 Nursing Facility [facility] [address] [place], [place] [address] [phone] Jann Daniels MD [address] [place] [address] Social History Tobacco Use Types Packs/Day Years Used Date Smoking Tobacco: Never Assessed Comments Unknown Sex and Gender Information Value Date Recorded Sex Assigned at Not on file Legal Sex Female 10:31 AM SILK WEAVER Gender Identity Not on file Sexual Orientation Not on file documented as of this encounter H&P Notes * Jann Daniels MD - 06/29/2022 11:59 PM CST [facility] History and Physical Chief Complaint: Hypoglycemia, LTC HPI: Zuleyka Tinoco is a 67 y.o. female who has transferred to [facility] from [facility] for post-acute care and rehabilitation in addition [...] medical records Review of Prior External Notes: [facility] ED and inpatient records Allergies: capozide Past [...] blind, renal failure Advance Care Planning: Aggregate [id number] time, greater than 16 minutes was spent discussing end-of-life care planning with patient/family and/or Power of Embroidery Machine Operator. Discussed CPR, Intubation, treatment goals, and Quality of life/Intensity of care. Patient desires CPR-Full Treatment Hadley Corona, acting as a scribe, am personally taking down the notes in the presence of Dr. Jann Daniels M.D. Take no action on this note until reviewed and authenticated by the physician. By: HADLEY WOODALL, 07/03/2022, 9:43 PM SILK WEAVER I evaluated and examined the patient in the presence of scribe Hadley Woodall and discussed the physical findings and clinical assessment with her and reviewed the medical records and notes above and agree with the content and details of the note. Jann Daniels MD 06/29/2022 WEAVER WEAVER WEAVER documented in this encounter Plan of Treatment Upcoming Encounters Date Type Department Care Team (Late st Contact Info) Description 08/26/2025 9:30 AM CDT Office Visit [facility] - Neurology [facility] [address] [place] [address] Lj Dyer MD [address] [place] [address] documented as of this encounter Visit Diagnoses Not on filedocumented in this encounter Care Teams Wire Weaver Relationship Specialty Start Date End Date Griffin Velasquez PAC [address] [place] [id number] PCP - General Physician Operator Helper 02/25/25 documented as of this encounter
--- OUTSIDE RECORDS SUMMARY | 2025-04-06 01:04 | XMS_ITS | Encounter Summary ---
Author Organization [facility] Address [address] [facility] [place] [address] Phone Care Team Providers Care Acute Dialysis Registered Nurse Name Role Phone Griffin Velasquez Primary Care Provider [phone] Encounter Details Date Type Department Care Team (Late st Contact Info) Description 07/03/2022 Nursing Facility [facility] [address] [facility] [phone] Fabian Bahena, PAC [address] [place] [address] Social History Tobacco Use Types Packs/Day Years Used Date Smoking Tobacco: Never Assessed Comments Unknown Sex and Gender Information Value Date Recorded Sex Assigned at Not on file Legal Sex Female 10:31 AM SLEDGER Gender Identity Not on file Sexual Orientation Not on file documented as of this encounter Progress Notes * Fabian Bahena, CAMILA - 07/03/2022 11:59 PM CST [facility] PROGRESS NOTE Zuleyka Tinoco is a 67 y.o. female [facility] She was hospitalized at [facility] from 06/24 - 06/27 for pyelonephritis and [...] system and there may be errors in power generation turbine room operator. Despite proof reading the note, there may be mistakes and I apologize for those. By: CAMILA Peng, GER documented in this encounter Plan of Treatment Upcoming Encounters Date Type Department Care Team (Late st Contact Info) Description 08/26/2025 9:30 AM CDT [facility] [address] [place] [address] Lj Dyer MD [address] [place] [address] documented as of this encounter Visit Diagnoses Not on filedocumented in this encounter Care Teams Acute Dialysis Registered Nurse Relationship Specialty Start Date End Date Griffin Velasquez, PAC [address] [place] [address] PCP - General Physician Social Worker Delinquency Prevention 02/25/25 documented as of this encounter
--- OUTSIDE RECORDS SUMMARY | 2025-04-06 01:04 | XMS_ITS | Encounter Summary ---
Author Organization [facility] Address [address] [facility] [place] [address] Phone Care Team Providers Care Cup Setter Lockstitch Name Role Phone Griffin Velasquez Primary Care Provider [phone] Encounter Details Date Type Department Care Team (Late st Contact Info) Description 07/06/2022 Nursing Facility [facility] [address] [place] [phone] Fabian Bahena, PAC [address] [place] [address] Social History Tobacco Use Types Packs/Day Years Used Date Smoking Tobacco: Never Assessed Comments Unknown Sex and Gender Information Value Date Recorded Sex Assigned at Not on file Legal Sex Female 10:31 AM FELTER TENNIS BALLS Gender Identity Not on file Sexual Orientation Not on file documented as of this encounter Progress Notes * Fabian Bahena, CAMILA - 07/06/2022 3:06 PM CST [facility] PROGRESS NOTE Zuleyka Tinoco is a 67 y.o. female [facility] hospitalized at [facility] from 06/24 - 06/27 for pyelonephritis [...] system and there may be errors in field interviewer. Despite proof reading the note, there may be mistakes and I apologize for those. By: CAMILA Peng, ER TENNIS BALLS documented in this encounter Plan of Treatment Upcoming Encounters Date Type Department Care Team (Late st Contact Info) Description 08/26/2025 9:30 AM CDT [facility] [address] [place] [address] Lj Dyer MD [address] [place] [address] documented as of this encounter Visit Diagnoses Not on filedocumented in this encounter Care Teams Cup Setter Lockstitch Relationship Specialty Start Date End Date Griffin Velasquez, PAC [address] [place] [address] PCP - General Physician Dipper Machine Operator 02/25/25 documented as of this encounter
--- OUTSIDE RECORDS SUMMARY | 2025-04-06 01:04 | XMS_ITS | Encounter Summary ---
Author Organization [facility] Address [address] [facility] [place] [address] Phone Care Team Providers Care Nutrition Aides Teacher Name Role Phone Griffin Velasquez Primary Care Provider [phone] Encounter Details Date Type Department Care Team (Late st Contact Info) Description 08/07/2022 Nursing Facility [facility] [address] [phone] Fabian Bahena, PAC [address] [place], [place] [id number] Social History Tobacco Use Types Packs/Day Years Used Date Smoking Tobacco: Never Assessed Comments Unknown Sex and Gender Information Value Date Recorded Sex Assigned at Not on file Legal Sex Female 10:31 AM SQL ARCHITECT Gender Identity Not on file Sexual Orientation Not on file documented as of this encounter Progress Notes * Fabian Bahena, PAC - 08/07/2022 3:27 PM CST [facility] PROGRESS NOTE Zuleyka Tinoco is a 67 y.o. female at [facility]. She was hospitalized at [facility] from 06/24 - 06/27 for pyelonephritis and persistent hypoglycemia and covid 19. Subjective: Interval History: I am seeing patient for routine monthly residential visit She is lying comfortably in her [...] for LTC. This note was dictated using Placeling fluency dictation system and there may be errors in smash piecer. Despite proof reading the note, there may be mistakes and I apologize for those. By: CAMILA Peng, ARCHITECT documented in this encounter Plan of Treatment Upcoming Encounters Date Type Department Care Team (Late st Contact Info) Description 08/26/2025 9:30 AM CDT [facility] [address] [place] [address] Lj Dyer MD [address] [place] [address] documented as of this encounter Visit Diagnoses Not on filedocumented in this encounter Care Teams Nutrition Aides Teacher Relationship Specialty Start Date End Date Griffin Velasquez PAC [address] [place] [address] PCP - General Physician Computer Aided Design Drafter 02/25/25 documented as of this encounter
--- OUTSIDE RECORDS SUMMARY | 2025-04-06 01:04 | XMS_ITS | Clinical Summary ---
Author Organization [facility] Address [facility] access [facility] [place] [address] Care Team Providers Care Estimator Paperboard Boxes Name Role Phone Unavailable Primary Care Provider Unavailabl e Encounters Date Type Department Care Team Description 02/22/2025 8:21 AM CDT - 02/22/2025 11:59 PM CDT Hospital [place] [address] Flavio Carty MD Discharge Disposition: Home or Self Care (Routine Discharge) 02/22/[address] [place] [address] Flavio Carty MD 01/15/2025 1:36 PM CDT - 01/15/2025 11:59 PM CDT Hospital [place] [address] Flavio Carty MD Discharge Disposition: Home or Self Care (Routine Discharge) 01/15/[address] [place] [address] Flavio Carty MD from Last 3 Months [...] Scan (General) 2021 COVID-19 Vaccine (1 - 2024-2 6 season) 2025 Influenza Adult (#1) 2025 Hepatitis A Vaccines Aged Out No long er eligible based on patient's age to complete this topic Meningococcal B Vaccine Aged Out No l [...] 6:45 AM CDT End stage renal disease ([facility]) CBC, AUTO, NO DIFF Routine 01/15/2025 8: 00 AM CDT ESRD (end stage renal disease) ([facility]) from Last 3 Months Results * QUANTIFERON TBGOLD TUBERCULOSIS TEST (02/22/2025 6:45 AM CDT) TB1 AG MINUS NIL 0.07 IU/ML 02/24/20 1:07 PM CDT [facility] TB2 AG MINUS NIL 0.06 IU/ML 02/24/20 25 1:07 PM CDT [facility] TB QUANTIFERON NEGATIVE NEGATIVE 02/23/2025 1:07 PM CDT [facility] TB INTERPRETATION M. tuberculosis infection unlikely but cannot be excluded especially when any illness is consistent with TB disease and/or likelihood of progression to disease is increased. In patients at high risk to M. tuberculosis infection, a second test should be considered. 02/23/2025 1:07 PM CDT [facility] 02/22/2025 6:45 AM CDT Flavio Carty MD LABORATORY Final Result [facility] [address] [place] [address], [id number] * (ABNORMAL) CBC, AUTO, NO DIFF (01/15/2025 8:00 AM CDT) WBC 8.86 4.00 - 10.80 x10'3/uL 01/15/2025 1:44 PM CDT [facility] RBC 3.66(L) 4.10 - 5.40 x10'6/uL 01/15/2025 1:44 PM CDT [facility] HGB 11.2(L) 12.0 - 16.0 G/DL 01/15/2025 1:44 PM CDT [facility] HCT 33.6(L) 36.0 - 47.0 % 01/15/2025 1:44 PM CDT [facility] MCV 91.8 78.0 - 100.0 FL 01/15/2025 1:44 PM CDT [facility] MCH 30.6 27.0 - 31.0 PG 01/15/2025 1:44 PM CDT [facility] MCHC 33.3 33.0 - 36.0 G/DL 01/15/2025 1:44 PM CDT [facility] RDW 15.5(H) 11.5 - 14.5 % 01/15/2025 1:44 PM CDT [facility] PLT 271 150 - 350 x10'3/uL 01/15/2025 1:44 PM CDT [facility] MPV 10.2 7.4 - 10.4 FL 01/15/2025 1:44 PM CDT [facility] 01/15/2025 8:00 AM CDT Flavio Carty MD LABORATORY Final Result [facility] [address] [place] [address], from Last 3 Months Insurance [place] [address] [address] [address] GENERIC [place] [id number] GENERIC - COMMERCIAL
--- OUTSIDE RECORDS SUMMARY | 2025-04-06 01:04 | XMS_ITS | Encounter Summary ---
Author Organization [facility] Address [address] [facility] [place] [address] Phone Care Team Providers Care Flash Drier Operator Name Role Phone Griffin Velasquez Primary Care Provider [phone] Encounter Details Date Type Department Care Team (Late st Contact Info) Description 08/30/2022 Nursing Facility [facility] SERVICES [address] [place] [phone] Fabian Bahena, PAC [address] [place], [place] [id number] Social History Tobacco Use Types Packs/Day Years Used Date Smoking Tobacco: Never Assessed Comments Unknown Sex and Gender Information Value Date Recorded Sex Assigned at Not on file Legal Sex Female 10:31 AM FILE KEEPER Gender Identity Not on file Sexual Orientation Not on file documented as of this encounter Progress Notes * Fabian Bahena, CAMILA - 08/30/2022 4:32 PM CDT [facility] PROGRESS NOTE Zuleyka Tinoco is a 67 y.o. female at [facility] and[facility]. She was hospitalized at [facility] from 06/24 - 06/27 for pyelonephritis and persistent hypoglycemia and covid 19. Subjective: Interval History: I am seeing patient for routine monthly alf visit She is lying comfortably in her [...] system and there may be errors in deep fat cook fry. Despite proof reading the note, there may be mistakes and I apologize for those. By: CAMILA Peng, documented in this encounter Plan of Treatment Upcoming Encounters Date Type Department Care Team (Late st Contact Info) Description 08/26/2025 9:30 AM CDT [facility] Visit [facility] - [place] [address] [place] [address] Lj Dyer MD [address] [place] [address] documented as of this encounter Visit Diagnoses Not on filedocumented in this encounter Care Teams Flash Drier Operator Relationship Specialty Start Date End Date Griffin Velasquez PAC [address] [place] [address] PCP - General Physician Powder Press Operator 02/25/25 documented as of this encounter
--- OUTSIDE RECORDS SUMMARY | 2025-04-06 01:05 | XMS_ITS | Data Portability ---
Author Organization [facility] [employer] [facility], Main Office Address [address] [place] [address] Assessment No assessment recorded. Plan of Treatment Reminders Order Date Submit Date Provider Last Modified By Organization Details Last Modified Time Details Appointments None recorded. Lab hemoglobin A1C, fingerstick 2024 025 [facility], [address] [place] [address], [address], 16:39:48 TSH, serum or plasma 2024 025 [facility] (Lab), [address] [place], [address], 12:59:08 TSH, serum or plasma 2024 025 [facility] (Lab), [address] [place], [address], 5 12:54:56 lipid panel, serum 2024 025 [facility] (Lab), [address] [place], [address], 12:54:57 CBC w/ auto diff 2024 025 [facility] (Lab), [address] [place], [address], 5 13:07:13 CMP, serum or plasma 2024 025 [facility] (Lab), [address] [place], [address], 5 12:54:57 CK (creatine kinase), total, serum 2024 025 [email or web address] 4 [facility] (Lab), [address] [place], [address], 12:34:56 Referral None recorded. Procedures None recorded. Surgeries None recorded. Imaging MAMMO, screening, digital, bilateral 2024 025 [email or web address] [facility], [address] [place], [address], 17:18:57 Medication Orders Protein Nutritional Shake oral liquid [address] [facility], [address] [place], [address], 5 10:36:14 Trulicity 0.75 mg/0.5 mL subcutaneou s pen injector 2024 025 [facility], [address] [place] [address] Dr, [address], [place], [place], [id number], 16:24:20 Patient TargetsNo targets recorded. Patient Instructions Encounter Date Encounter Id Patient Instructions Last Modified By Organization Details Last Modified Time 10/15/2024 [id number] get dilated eye exam [email or web address] Not available 10/15/2024 15:43:36 Reason for Referral None Reported. Results Created Date Observation Date Name Description Value Unit Range Abnormal Flag Note LastModifiedBy Organization Detail LastModifiedTime 08/12/19 25 08/11/2024 hemog lobin A1C, finge rstic k HgbA1C 5.6% Not Available [facility]_[address], [place], [address], 08/11/2024 16:25:07 10/03/19 25 10/01/2024 MAMMO , scree rene, digit al, bilat eral No observ ation record ed. [email or web address] [facility] [address] [place], [address], 01/21/2025 15:03:07 Result Notes None recorded. 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 42730017288 07 Active 2020 Not Available [facility] 3 04:37:04 Incontine nce 41666712 Active 2024 NIKKI [facility] [address], [address], [place], [address] , [employer] 5 16:22:52 Hypothyro idism 56797640 Active 2024 NIKKI [facility] [address], [address], [place], [address] , [facility] 5 16:25:42 Hyperlipi demia 59723632 Active 2024 NIKK[facility] [address], [address], [place], [address] , [facility] 5 16:25:59 Chronic kidney disease 544940586 Active [address] Bravo , [place] ;pmay get a kidney ttranspla nt [facility] [address], [place], [address] , [facility] 5 15:42:50 Obese 919957996 Active 2024 [address] [address], [place], [address] , [facility] [employer] [facility] 5 21:38:41 Screening mammograp hy Active 2024 NIKKI [facility] [address], [place], [address] , [facility] [employer] [facility] 5 10:26:43 Renal dialysis Active 2024 NIKKI [facility] [address], [place], [address] , [facility] [employer] [facility] 5 10:30:37 Problem Notes None recorded. Procedures Surgical History Date Name Laterality Status Provider Name and Address Organization Details Recorded Time closure of fistula of kidney completed Carolina Gaitan RN [facility] [employer] [facility] 08/11/2024 16:12:30 Imaging Results None recorded. Procedure Notes None recorded. Medical Equipment None Reported. Allergies Allergen ID Allergen Name Allergen Category Reaction Reaction Severity Criticality Documentation Date Start Date Code Code System Note Provider Name and Address Organization Details Recorded Time 07168 capecitab ine medicatio n Not available Not available Not available 08/11/2024 13902 0 RxNorm Carolina Gaitan RN [facility] [employer] [facility] 16:02:10 Medications Name Sig Start Date [...] 1.5 mg/0.5 mL subcutaneou s pen injector INJECT 0.5 ML SUBCUTANE OUSLY ONCE A WEEK E11.21 active Not Available Not Available No t Available Trulicity 0.75 mg/0.5 mL subcutaneou s [...] DateTime 03/04/202 5 165.1 cm 32.4 kg/m2 47406.5 1 g 97.6 [degF] 72 /min 16 /min 98 % 98 % 118/76 mm[Hg] Carolina Gaitan RN [facility] [employer] [facility] 5 16:14:57 Date Recorded Body height Body temperature Oxygen saturation Oxygen saturation in Arterial blood by Pulse oximetry Heart rate Systolic And Diastolic Provider Name and Address Organization Details Last Updated DateTime 5 165.1 cm 97.8 [degF] 98 % 98 % 78 /min 136/68 mm[Hg] [facility] [employer] [facility] 5 09:43:06 Date Recorded Body height Body mass index (BMI) Body weight Body temperature Heart rate Oxygen saturation Oxygen saturation in Arterial blood by Pulse oximetry Systolic And Diastolic Provider Name and Address Organization Details Last Updated DateTime 5 165.1 cm 31 kg/m2 97646.1 8 g 97.6 [degF] 76 /min 99 % 99 % 132/78 mm[Hg] Angela Kapoor [facility] [employer] [facility] 5 15:29:23 Date Recorded Body mass index (BMI) Body height Heart rate Body weight Systolic And Diastolic Provider Name and Address Organization Details Last Updated DateTime 12/02/2020 40.7 kg/m2 170.18 cm 61 /min 093537.0 2 g 130/76 mm[Hg] Not Available [facility] 3 04:35:52 Date Recorded Body height Oxygen saturation Oxygen saturation in Arterial blood by Pulse oximetry Heart rate Respiratory rate Body temperature Systolic And Diastolic Provider Name and Address Organization Details Last Updated DateTime 1 170.18 cm 100 % 100 % 82 /min 18 /min 97.7 [degF] 171/74 mm[Hg] Not Available [facility] 3 04:35:53 Social History Question Answer Notes LastModified by Organizat ion Details LastModified Time Tobacco Smoking Status Former Smoker Not Available [facility] 08/08/2022 04:30:32 Do You Have An Advance Directive? No Information not available 08/11/2024 Are You Blind Or Do You Have Difficulty Seeing? Yes Blind [email or web address] Information not available 08/11/2024 What Is Your Level Of Caffeine Consumption? None [email or web address] Information not available 08/11/2024 Are You Deaf Or Do You Have Serious Difficulty Hearing? Yes [email or web address] Information not available 08/11/2024 What Type Of Diet Are You Following? SPECIFIC Renal Diet --on Dialysis [email or web address] Information not available 08/11/2024 What Is The Highest Grade Or Level Of School You Have Completed Or The Highest Degree You Have Received? IE99387-8 [email or web address] Information not available 08/11/2024 Have There Been Any Changes To Your Family Or Social Situation? No [email or web address] Information not available 08/11/2024 When Did You Quit Smoking? 16+yearssinc elastcigaret te onzbhip24 Information not available 08/11/2024 Do You Use Insect Repellent Routinely? No [email or web address] Information not available 08/11/2024 Where Do You Live? [place] [email or web address] Information not available 08/11/2024 Do You Have A Medical Power Of Fish Technologist? No [email or web address] Information not available 08/11/2024 How Many Children Do You Have? 3 [email or web address] Information not available 08/11/2024 Do You Have Any Pets? Yes Cat [email or web address] Information not available 08/11/2024 What Is Your Relationship Status? [email or web address] Information not available 08/11/2024 Do You Have Smoke And Carbon Monoxide Detectors In Your Home? Yes [email or web address] Information not available 08/11/2024 Are You Passively Exposed To Smoke? Yes [email or web address] Information not available 08/11/2024 Are There Any Smokers In Your House? Yes [email or web address] Information not available 08/11/2024 Do You Use Sunscreen Routinely? No [email or web address] Information not available 08/11/2024 Do You Have Difficulty Walking Or Climbing Stairs? Yes [email or web address] Information not available 08/11/2024 Sex: Unknown Functional Status Question Answer Note LastModified by Organizat ion Details LastModified Time Do you use any illicit or recreational drugs? No [email or web address] Information not available 08/11/2024 What is your level of alcohol consumption? None [email or web address] Information not available 08/11/2024 Are you able to walk independently without assistance or assistive devices? YESLIMIT [email or web address] Information not available 08/11/2024 Are you able to care for yourself independently? Yes [email or web address] Information not available 08/11/2024 Mental Status Question Answer Note LastModified by Organization D etails LastModified Time Do you have difficulty concentrating, remembering or making decisions? Yes [email or web address] Information no t available 08/11/2024 Family History Relationship Description Onset Age of this Age Resolved Age Notes LastModified by Organization Details LastModified Time Brother Diabetes mellitus [email or web address] [id number] Not available 08/08/2022 04:31:45 Father Heart disease Diabet ic [email or web address] [id number] Not available 08/08/2022 04:31:45 Mother Heart disease Breast Cancer [email or web address] [id number] Not available 08/08/2022 04:31:45 Maternal Grandmother Malignant neoplasm of breast [email or web address] Not available 2024 16:07:44 Father Diabetes mellitus [email or web address] Not available 2024 16:07:55 Medical History Condition Response HYPERTHYROIDISM Y DIALYSIS Y DIABETES, TYPE Y Gynecological HistoryNo gynecological history recorded. Obstetrics History GPAL:G 0 P 0 0 0 0 Past Encounters Encounter ID Performer Location Encounter Start Date Encounter Closed Date Diagnosis/Indication Diagnosis SNOMED-CT Code Diagnosis ICD10 Code Diagnosis IMO Codes Diagnosis Note [id number] [facility]_ DEFAULT_1 _1 , 10/14/2020 00:00:00 10/14/2020 12:29:24 [id number] [facility]_ DEFAULT_1 _1 , 12/02/2020 00:00:00 12/04/2020 12:59:23 [id number] [facility] [address] [place] [address] 12/13/2020 00:00:00 12/15/2020 13:51:42 [id number] Ad Fam MD [facility] [address] [address] 08/11/2024 15:54:04 08/11/2024 17:28:14 Type 2 diabetes mellitus 25495516 E11.21 Incontinence 35355806 R3 2 Peripheral neuropathy due to type 2 diabetes mellitus 1364156741 107 E11.42 Hypothyroidism 25004022 E03.9 Hyperlipidemia 77564772 E78.5 Chronic ki dney disease 305483506 N18.9 Obese 860849188 E66.9 [id number] Ad Fam MD [address] [address] 09/03/2024 09:05:48 09/03/2024 10:52:10 Screening mammography 48035894 Z12.31 Chronic ki dney disease 589112891 N18.9 Renal dialysis 888971519 Z99.2 Peripheral neuropathy due to type 2 diabetes mellitus 3987695670 107 E11.42 Incontinence 23505167 R3 2 [id number] Ad Fam MD [address] [address] 10/15/2024 15:16:27 10/15/2024 15:40:59 Chronic kidney disease 214195580 N18.9 Hyperlipidemia 23334107 E78.5 Diabetes mellitus 323615 09 E11.40 E11.621 Hypothyroidism 76989870 E03.9 Incontinence 21807968 R3 2 Peripheral neuropathy due to type 2 diabetes mellitus 9355959693 107 E11.42 Renal dialysis 654360759 Z99.2 Type 2 meme betes mellitus 12838907 E11.21 Health Concerns Section Related Observation LastModified by Organization Detai ls LastModified Time None Recorded Concern Status LastModified by Organization Details LastModified Time None Recorded Advance Directives Directive N: Payers Insurance Date Sequence Insurance Name Policy Number Policy Olivares Covered Member ID Olivares Member ID Guarantor Name 11/08/2024 1 [facility] (MEDICARE REPLACEMENT/A DVANTAGE - POS) [id number] Zuleyka Tinoco [id number] Zuleyka Tinoco 11/08/2024 2 [facility] ON OR AFTER 12/08/20 (MEDICAID REPLACEMENT - HMO) Zuleyka Tinoco [id number] Zuleyka Tinoco Notes Date Note Type Note Provider Name and Address Organization Details Recorded Time 08/11/2024 text/html ROS as noted in the HPI Type 2 Diabetes , kidney disease , on dialysis Edward Gilles [place], [place] [address], [place], [address], [place] 08/16/2024 21:39:03 09/03/2024 text/html ROS as noted in the HPI no changes . falls out of bed , needs a bed with rails , adjustable to keep skin healthy [facility] [address], [place], [address], [place] 09/07/2024 17:23:27 10/15/2024 text/html ROS as noted in the HPI Doing well . [facility]KK[facility] [address], [place], [address], [place] 10/19/2024 16:03:52 OBGyn Episode No OBEpisode recorded.
--- OUTSIDE RECORDS SUMMARY | 2025-04-06 01:05 | XMS_ITS | Encounter Summary ---
Author Organization [facility] Address [address] [facility] 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 : 1955 Attending Physician: No att. providers found Admission Date/Time: 06/28/2022 Expected Discharge Date: 09/07/2022 Primary Care Physician: No primary care provider on file. Discharging Provider: CAMILA Peng INSTRUCTIONS FOR PHYSICIANS ON FOLLOW UP AFTER DISCHARGE: Follow-up with PCP in 1-2 weeks. Follow-up with librarian special library and remain compliant with dialysis sessions. Discharge [...] CARE COURSE: Zuleyka Tinoco [facility]. She was hospitalized at [facility] from 06/24 - 06/27 for pyelonephritis [...] 1-2 weeks. Understands to follow-up with her librarian special library and continue to be compliant with her hemodialysis. I have spent time coordinating care for this [facility] facility discharge: Greater than 30 minutes spent in coordinating care This note was dictated using M*Modal fluency dictation system and there may be errors in hydrogen braze furnace operator. Despite proof reading the note, there may be mistakes and I apologize for those. Signed: CAMILA Peng, 09/06/2022, 2:02 PM CDT documented in this encounter Plan of Treatment Upcoming Encounters Date Type Department Care Team (Late st Contact Info) Description 08/26/2025 9:30 AM CDT Office Visit [facility] - Neurology [facility] [address] [place] [address] Lj Dyer MD [address] [place] [address] documented as of this encounter Visit Diagnoses Not on filedocumented in this encounter Care Teams Business Analytics Intern Relationship Specialty Start Date End Date Griffin Velasquez, [facility] [address] [place] [address] PCP - General Physician Jitney Driver 02/25/25 documented as of this encounter
[2025-04-06 13:39] VITALS: BP 145/87; PULSE 94; RESP 18; TEMP 36.4; O2SAT 100
[2025-04-06] MEDS: SODIUM CHLORIDE 0.9% IV 500 ML 10 ML IV CONT (14:01)
--- NOTE | 2025-04-06 14:05 | WPDANESEPPF ---
Anes - Initial Pre Proc Eval Procedure: Operation Date: 04/06/25 14:15 Proposed Procedures p Esophagogastroduodenoscopy - Sammy Eckert MD Date/Time: 04/06/25 14:05 Surgeon: Sammy Eckert MD Pre Op Diagnosis: Gastro-esophageal reflux disease without esophagit Patient Data Age: 70 Gender: F Height: 1.65 m Weight: 77.5 kg Last Vital Signs Temp 97.5 F L 04/06/25 13:39 Pulse 94 04/06/25 13:39 Resp 18 04/06/25 13:39 BP 145/87 H 04/06/25 13:39 Pulse Ox 100 04/06/25 13:39 O2 Del Method Room Air 04/06/25 13:39 Allergies Allergy/AdvReac Type Severity Reaction Status Date / Time captopril (From Capozide) Allergy Rash Verified 04/06/25 13:36 hydrochlorothiazide (From Allergy Rash Verified 04/06/25 13:36 Capozide) Home Medications ?Medication ?Instructions ?Recorded ?Confirmed ?Type ondansetron 4 mg disintegrating 4 mg PO Q8H PRN nausea and 04/22/23 03/22/25 Rx tablet vomiting #20 tabs dulaglutide 1.5 mg/0.5 mL 1.5 mg subcut WEEKLY 09/07/23 04/06/25 History subcutaneous pen injector (Trulicity) sevelamer carbonate 800 mg tablet 800 mg PO TID 09/07/23 04/06/25 History aspirin 81 mg chewable tablet 81 mg PO DAILY@0800 #30 tabs 09/12/23 04/06/25 Rx (Children's Aspirin) atorvastatin 40 mg tablet 40 mg PO DAILY 02/04/24 04/06/25 History blood sugar diagnostic (Accu-Chek 03/22/25 03/22/25 History Guide test strips) blood-glucose meter (Accu-Chek 03/22/25 03/22/25 History Guide Glucose Meter) nifedipine 30 mg tablet,extended 30 mg PO DAILY PRN high blood 03/22/25 04/06/25 History release pressure omeprazole 20 mg capsule,delayed 40 mg PO BID 03/22/25 04/06/25 History release nifedipine 90 mg tablet,extended 90 mg PO Q12H 04/06/25 04/06/25 History release Patient hx anesthesia problems: none Family hx anesthesia problems: none Results Review: All pre-operative results and documents have been reviewed as part of the pre-operative evaluation. [facility] Past Medical History Medical History LUQ abdominal pain Black stools Constipation GERD (gastroesophageal reflux disease) AV fistula Legal blindness Cataracts, bilateral Depression Type 2 diabetes mellitus High cholesterol Hypertension End-stage renal disease on hemodialysis Surgical History Surgical History H/O cataract removal with insertion of prosthetic lens Family History Family History Mother Breast cancer Father Heart disease Diabetes mellitus Hypertension Sibling Lung cancer Diabetes mellitus Social History Social History Smoking status: Former smoker Tobacco type: cigarettes Alcohol intake: never Substance use: never Substance use type: does not use Do You Feel Safe in your Home?: Yes Lack of Transportation: No Lack of Food: Never True Current Housing: I Have Housing Concerned About Future Housing: No Difficulty Paying Gas/Electric Bills: No Difficulty Paying for Meds: No Currently Unemployed: No Education: Don't Know Difficulty w/ Childcare or Family Care: No Living arrangements: with family Spiritual care concerns: No Anes - Eval Final PreProcedure Day of Procedure 04/06/25 14:05 Patient weight: overweight Lungs: normal air movement Airway: Mallampati scale class II and special considerations (Few teeth intact, poor condition. ) Neurological: alert and oriented Last oral intake: >/= 8 hours ASA classification: IV Emergent: no Anesthetic plan: proceed Anesthesia type and monitoring: general GIVS and standard monitoring Results Review: All pre-operative results and documents have been reviewed as part of the pre-operative evaluation. ESRD, hd yesterday, ECHO nml, DM, poor control. Informed Consent: The patient's anesthetic plan and its attendant risks and benefits were discussed with the patient/family/POA. Questions were solicited and answers provided to the satisfaction of the patient/family/POA.
--- NOTE | 2025-04-06 14:11 | PM.HPGS ---
History of Present Illness History of Present Illness Consent: Risks, benefits, and alternatives have been discussed and questions answered. Patient agrees to proceed with procedure. Chief complaint: Gastro-esophageal reflux disease without esophagit Narrative: Zuleyka Tinoco is a 70 year old female with gerd on ppi, also noted dark stools, she has esrd Review of Systems Review of Systems: All systems reviewed & are unremarkable except as noted in HPI and below PMFSH Past Medical History Medical History LUQ abdominal pain Black stools Constipation GERD (gastroesophageal reflux disease) AV fistula Legal blindness Cataracts, bilateral Depression Type 2 diabetes mellitus High cholesterol Hypertension End-stage renal disease on hemodialysis Surgical History Surgical History H/O cataract removal with insertion of prosthetic lens Family History Family History Mother Breast cancer Father Heart disease Diabetes mellitus Hypertension Sibling Lung cancer Diabetes mellitus Social History Social History Smoking status: Former smoker Tobacco type: cigarettes Alcohol intake: never Substance use: never Substance use type: does not use Do You Feel Safe in your Home?: Yes Lack of Transportation: No Lack of Food: Never True Current Housing: I Have Housing Concerned About Future Housing: No Difficulty Paying Gas/Electric Bills: No Difficulty Paying for Meds: No Currently Unemployed: No Education: Don't Know Difficulty w/ Childcare or Family Care: No Living arrangements: with family Spiritual care concerns: No Meds Home Medications and Allergies Home Medications ?Medication ?Instructions ?Recorded ?Confirmed ?Type ondansetron 4 mg disintegrating 4 mg PO Q8H PRN nausea and 04/22/23 03/22/25 Rx tablet vomiting #20 tabs dulaglutide 1.5 mg/0.5 mL 1.5 mg subcut WEEKLY 09/07/23 04/06/25 History subcutaneous pen injector (Trulicity) sevelamer carbonate 800 mg tablet 800 mg PO TID 09/07/23 04/06/25 History aspirin 81 mg chewable tablet 81 mg PO DAILY@0800 #30 tabs 09/12/23 04/06/25 Rx (Children's Aspirin) atorvastatin 40 mg tablet 40 mg PO DAILY 02/04/24 04/06/25 History blood sugar diagnostic (Accu-Chek 03/22/25 03/22/25 History Guide test strips) blood-glucose meter (Accu-Chek 03/22/25 03/22/25 History Guide Glucose Meter) nifedipine 30 mg tablet,extended 30 mg PO DAILY PRN high blood 03/22/25 04/06/25 History release pressure omeprazole 20 mg capsule,delayed 40 mg PO BID 03/22/25 04/06/25 History release nifedipine 90 mg tablet,extended 90 mg PO Q12H 04/06/25 04/06/25 History release Allergies Allergy/AdvReac Type Severity Reaction Status Date / Time captopril (From Capozide) Allergy Rash Verified 04/06/25 13:36 hydrochlorothiazide (From Allergy Rash Verified 04/06/25 13:36 Capozide) Vital Signs Vital Signs - 24 hr 04/06/25 13:39 Temperature 97.5 F L Pulse Rate 94 Respiratory Rate 18 Blood Pressure 145/87 H Pulse Oximetry 100 Oxygen Delivery Room Air Exam Const: General: comfortable and no acute distress HENMT: Face/Nose/Sinus: Normal nares present Resp: Auscultation: clear to auscultation bilaterally Cardio: Rate: regular rate Rhythm: regular rhythm GI: Inspection: non-distended GI Palp: Yes Soft to palpation Extrem: General: normal to inspection Psych: Mental Status: mental status grossly normal Assessment and Plan Assessment and plan (1) GERD (gastroesophageal reflux disease): Code(s): K21.9 - Gastro-esophageal reflux disease without esophagitis Status: Acute Assessment and Plan: egd (2) Black stools: Code(s): K92.1 - Melena Status: Acute (3) Anemia: Code(s): D64.9 - Anemia, unspecified Status: Acute (4) ESRD (end stage renal disease) on dialysis: Code(s): N18.6 - End stage renal disease; Z99.2 - Dependence on renal dialysis Status: Chronic
--- NOTE | 2025-04-06 14:15 | SUR.PREOP ---
PROCEDURE ROOM STAFF AT BEDSIDE TO TAKE PT INTO PROCEDURE, BLOOD SUGAR OF 67 OBTAINED, STAFF AWARE AND CONTINUED TO TAKE PT TO PROCEDURE ROOM, DENAE LOVE STATES WILL PROCEED WITH PROCEDURE AND TREAT AND RECHECK IN RECOVERY.
[2025-04-06 14:21] VITALS: BP 105/50; PULSE 89; RESP 18; O2SAT 100
--- NOTE | 2025-04-06 14:21 | S_PTH ---
PATIENT: Zuleyka Tinoco LOC: [facility]#:[id number] AGE/SX: 70/F ROOM: RE04/06/[address]: Sammy Eckert MD : [id number] BED: DIS: 04/06/2025 SPEC #: [id number] RECD: 04/07/25 07:05 STATUS: CRISTINA REDat #: [id number] EFRAIN: 04/06/25 14:[address]: Sammy Eckert DEPT: [facility] Surgical RECD BY: Cindy Oscar ENTERED: 04/07/25 07:06 SP TYPE: Surgical OTHR DR: Griffin Velasquez, PA Tissues: A - Gastric Biopsy Procedures: Hematoxylin and Eosin Stain Gross and Microscopic Level 4
[2025-04-06 14:31] VITALS: BP 129/59; PULSE 87; RESP 17; O2SAT 100
[2025-04-06 14:41] VITALS: BP 121/43; PULSE 87; RESP 18; O2SAT 95
== END 2025-04-06 15:00 | disposition home or self-care (01) ==
PROVIDERS: PCP Physician Assistant; Visit Provider Internal Medicine Gastroenterology
PROC: 0DJ08ZZ Inspection of Upper Intestinal Tract, Via Natural or Artificial Opening Endoscopic (ICD-10-PCS; CPT 43239; principal; 2025-04-06 14:15)
DX: K21.9 Gastro-esophageal reflux disease without esophagitis (principal); D64.9 Anemia, unspecified; F32.A Depression, unspecified; E78.00 Pure hypercholesterolemia, unspecified; H54.8 Legal blindness, as defined in USA; E11.22 Type 2 diabetes mellitus with diabetic chronic kidney disease; I12.0 Hypertensive chronic kidney disease with stage 5 chronic kidney disease or end stage renal disease; N18.6 End stage renal disease; Z99.2 Dependence on renal dialysis; Z79.85 Long-term (current) use of injectable non-insulin antidiabetic drugs; Z79.82 Long term (current) use of aspirin; Z98.890 Other specified postprocedural states; Z87.891 Personal history of nicotine dependence; Z80.3 Family history of malignant neoplasm of breast; Z80.1 Family history of malignant neoplasm of trachea, bronchus and lung; Z82.49 Family history of ischemic heart disease and other diseases of the circulatory system
CPT/HCPCS: 43239; 82948; 88305; J2003; J2704; J7040

== ENCOUNTER 2025-04-27 05:27 | Outpatient (CLI) | payer MEDICARE, MEDICAID, SELFPAY ==
--- NOTE | 2025-04-27 06:48 | SUR.OPER ---
Patient brought to GI Lab. Instructions for patient undergoing Capsule Endoscopy reviewed with patient. Consent form signed. Sensor array applied to patient's abdomen and connected to recorded. Patient swallowed capsule with 12ozs of water infused with Simethicone. Patient instructed they may have clear liquids at 8:30 this AM and eat or drink at 10:30 this AM. Patient instructed to return to GI Lab at 1500 this afternoon for removal of recording device and to call [phone] or to return to the hospital if any nausea and vomiting or abdominal pain is experienced.
--- NOTE | 2025-04-27 14:59 | SUR.PREOP ---
Patient returned to the GI Lab at 1445 for recorder box removal. Patient voiced no complaints. States they have understanding of instructions. Patient left ambulatory.
== END 2025-04-27 05:28 | disposition home or self-care (01) ==
PROVIDERS: PCP Physician Assistant; Referring Provider Internal Medicine Gastroenterology; Visit Provider Internal Medicine Gastroenterology
PROC: (CPT 91110; principal; 2025-04-27 07:00)
DX: K92.1 Melena (principal); D64.9 Anemia, unspecified
CPT/HCPCS: 91110